=== PATIENT | female | born 1990 | race Caucasian/White ===

== ENCOUNTER → 2017-09-23 12:09 | Outpatient (CLI) | payer OTHER, SELFPAY ==
[2017-09-23 12:48] LABS: Absolute Lymphocyte Count 2.42 X10^3/ul (0.83-4.51); Absolute Neutrophil Count 5.8 X10^3/uL (2.0-7.7); Basophil# 0.01 X10^3/uL; Basophil% 0.1 % (0-1); Eosinophil# 0.03 X10^3/uL; Eosinophils% 0.3 % (0-5); Hematocrit 37.9 % (37-47); Hemoglobin 12.9 g/dl (12.0-15.0); Lymphocyte # 2.42 X10^3/ul (4.0); Lymphocyte % 27.7 % (19-41); Mean Corpuscular Hgb 29.9 pg (27.0-32.0); Mean Corpuscular Volume 87.9 fL (81-99); Mean Platelet Vol. 9.4 fl (6.2-12.0); Monocyte# 0.42 X10^3/uL; Monocyte% 4.8 % (0-10); Neutrophil # 5.82 X10^3/uL (2.7-7.7); Neutrophil % 66.8 % (47-70); Platelet Count 189 K/mm3 (150-450); RBC Distribution Width CV 12.4 % (11.6-14.6); RBC Distribution Width SD 39.8 fl (35.1-43.9); Red Blood Count 4.31 M/mm3 (4.2-5.4); White Blood Count 8.7 K/mm3 (4.4-11.0)
[2017-09-23 12:51] LABS: POSITIVE COUNT NO; POSITIVE DIFFERENTIAL NO; POSITIVE MORPHOLOGY NO
[2017-09-23 13:14] LABS: Rubella IgG 240.4 IU/mL
[2017-09-23 13:20] LABS: hCG Titer Quant., Serum 62589 mIU/mL (<9 non-preg)
[2017-09-24 09:29] LABS: HEPATITIS B SURFACE AG Negative (Negative)
[2017-09-27 03:10] LABS: Rapid Plasmin Reagin (RPR) NONREACTIVE (NONREACTIVE)
== END ==
PROVIDERS: Family Provider Family Medicine; PCP Family Medicine; Visit Provider Obstetrics & Gynecology
DX: O09.00 Supervision of pregnancy with history of infertility, unspecified trimester (principal); O20.0 Threatened abortion
CPT/HCPCS: 36415; 84702; 85025; 86592; 86762; 86850; 86900; 87340

== ENCOUNTER → 2017-10-22 14:09 | Outpatient (CLI) | payer OTHER, SELFPAY ==
--- NOTE | 2017-10-22 14:10 | US_ITS ---
STUDY: SECOND AND THIRD TRIMESTER OBSTETRICAL ULTRASOUND REASON FOR EXAM: Female, 27 years old. Evaluate anatomy. LMP: 06/08/2017. TECHNIQUE: Transabdominal and Transvaginal PRIOR ULTRASOUND: None. FINDINGS: There is a single intrauterine fetus. The fetus is in a breech presentation. There is demonstrated cardiac activity with a heart rate of 152 bpm. There is a normal amniotic fluid volume. The largest amniotic fluid pocket measures 4.2 cm. The amniotic fluid index (ORALIA) was not demonstrated. The placenta is anterior in location and is not low lying. There are Grade 0 placental changes. The cervix measures 4.3 cm in length. The adnexal regions are not visualized. BIOMETRY: BPD: 4.47 cm: 19 weeks, 4 days HC: 16.27 cm: 19 weeks, 1 days AC: 14.59 cm: 20 weeks, 0 days FL: 3.06 cm: 19 weeks, 4 days CI: 79 FL/BPD: 68 FL/AC: 21 HC/AC: 1.12 age by current US: 19 weeks, 4 days. TIFFANY by current US: 03/14/2018. Estimated weight: 304 grams, +/- 44 grams, 58 %. Age by LMP: 19 weeks, 3 days. TIFFANY by LMP: 03/15/2018. ANATOMY: Gender: Male Cranium: Normal lateral ventricles. Normal choroid plexus. Normal cerebellum. Normal cisterna magna. Normal face, nose and lips. Chest: Normal 4-chamber heart. Abdomen/Pelvis: Normal diaphragm. Normal stomach. Normal abdominal wall. Normal cord insertion. Normal 3 vessel cord. Normal kidneys. Normal bladder. Spine: Normal cervical spine. Normal thoracic spine. Normal lumbar spine. Normal sacrum. Extremities: Normal bilateral upper extremities. Normal bilateral lower extremities. US/OB Anatomy Scan IMPRESSION: Single viable intrauterine gestation of 19 weeks, 4 days with estimated date of delivery of 03/14/2018. No visualized abnormalities. Electronically Signed: Wayne Fenton MD at 5:06 EDT , Service support ,
== END ==
PROVIDERS: Family Provider Family Medicine; PCP Family Medicine; Visit Provider Obstetrics & Gynecology
DX: O09.00 Supervision of pregnancy with history of infertility, unspecified trimester (principal); O32.1XX0 Maternal care for breech presentation, not applicable or unspecified; Z3A.19 19 weeks gestation of pregnancy
CPT/HCPCS: 76805

== ENCOUNTER → 2017-12-24 08:54 | Outpatient (CLI) | payer OTHER, SELFPAY ==
[2017-12-24 09:22] LABS: Absolute Lymphocyte Count 1.86 X10^3/ul (0.83-4.51); Absolute Neutrophil Count 7.1 X10^3/uL (2.0-7.7); Basophil# 0.02 X10^3/uL; Basophil% 0.2 % (0-1); Eosinophil# 0.08 X10^3/uL; Eosinophils% 0.8 % (0-5); Hemoglobin 11.9 g/dl (12.0-15.0); Lymphocyte # 1.86 X10^3/ul (4.0); Lymphocyte % 18.9 % (19-41); Mean Corpuscular Hgb 30.6 pg (27.0-32.0); Mean Platelet Vol. 8.9 fl (6.2-12.0); Monocyte# 0.65 X10^3/uL; Monocyte% 6.6 % (0-10); Neutrophil # 7.08 X10^3/uL (2.7-7.7); Neutrophil % 71.8 % (47-70); POSITIVE COUNT NO; POSITIVE DIFFERENTIAL NO; POSITIVE MORPHOLOGY NO; Platelet Count 149 K/mm3 (150-450); RBC Distribution Width CV 12.5 % (11.6-14.6); RBC Distribution Width SD 40.4 fl (35.1-43.9); Red Blood Count 3.89 M/mm3 (4.2-5.4); White Blood Count 9.9 K/mm3 (4.4-11.0)
[2017-12-24 09:48] LABS: Glucose Challenge Gest 1H 50g 95 mg/dL (70-140)
[2017-12-25 09:46] LABS: HIV - WCH Non-Reactive (Nonreactive)
== END ==
PROVIDERS: Family Provider Family Medicine; PCP Family Medicine; Visit Provider Obstetrics & Gynecology
DX: O09.00 Supervision of pregnancy with history of infertility, unspecified trimester (principal); Z3A.00 Weeks of gestation of pregnancy not specified
CPT/HCPCS: 36415; 82950; 85025; 86703

== ENCOUNTER → 2018-01-23 14:59 | Outpatient (CLI) | payer OTHER, SELFPAY | PROVIDERS: Visit Provider Nurse Practitioner Women's Health | DX: N89.8 Other specified noninflammatory disorders of vagina (principal) | CPT/HCPCS: 84112 ==

== ENCOUNTER → 2018-02-21 13:24 | Outpatient (CLI) | payer OTHER, SELFPAY ==
[2018-02-21 19:18] LABS: Group B Strep DNA By PCR Negative (Negative); Internal Control PASS; Probe Check PASS; Specimen Processing Control PASS
== END ==
PROVIDERS: Family Provider Family Medicine; PCP Family Medicine; Visit Provider Obstetrics & Gynecology
DX: O09.00 Supervision of pregnancy with history of infertility, unspecified trimester (principal); Z3A.00 Weeks of gestation of pregnancy not specified
CPT/HCPCS: 76816; 87081; 87653

== ENCOUNTER 2018-03-19 12:15 | Inpatient (IN) | payer OTHER, SELFPAY ==
[2018-03-19 13:41] VITALS: BMI 34.9
[2018-03-19 14:04] LABS: Hematocrit 40.1 % (37-47); Hemoglobin 13.5 g/dl (12.0-15.0); Mean Corp Hgb Conc 33.7 g/gl (32-36); Mean Corpuscular Hgb 30.1 pg (27.0-32.0); Mean Corpuscular Volume 89.5 fL (81-99); Mean Platelet Vol. 9.4 fl (6.2-12.0); Platelet Count 159 K/mm3 (150-450); RBC Distribution Width CV 13.4 % (11.6-14.6); RBC Distribution Width SD 43.5 fl (35.1-43.9); Red Blood Count 4.48 M/mm3 (4.2-5.4); White Blood Count 10.8 K/mm3 (4.4-11.0)
[2018-03-19 14:05] LABS: Scan Indicated on CBC? Y/N NO
[2018-03-19] MEDS: miSOPROStol 25 MCG TABLET PO ×3 (14:14→22:14)
[2018-03-19] MEDS: Lactated Ringers 1,000 ML 50 ML IV (14:15)
[2018-03-19] MEDS: 0.9% Saline Lock 10 ML Syringe IV (19:18)
--- NOTE | 2018-03-19 21:13 | PCM.HP.OB ---
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 she was seen in the office today and had an padmini of 2.3 cm. she denies any LOF admits good FM and denies any regular ctx. Surgical History: Surgical History (Last Reviewed 03/19/18 @ 11:28 by Yolanda Cox) H/O eye surgery Z98.890 Allergies amoxicillin Allergy (Verified 03/19/18 11:29) Hives naproxen [From Aleve] Allergy (Verified 03/19/18 11:29) Hives sulfamethoxazole [From Bactrim] Allergy (Verified 03/19/18 11:29) Hives trimethoprim [From Bactrim] Allergy (Verified 03/19/18 11:29) Hives Home Medications: Home Medications vitamin #56-iron 35 mg and 5 mg-folic acid 1 mg-dha capsule 1 cap PO QDAY 07/26/17 Acyclovir 400 mg PO BID 03/19/18 Ranitidine HCl [Acid Control] 150 mg PO BID 03/19/18 Smoking Status: Never smoker Alcohol: None Number of Fetus(es): 1 Heart Tracin-140 moderate variability reactive no decels cat I tracing TOCO Analysis: irregular History Past Pregnancies: Past Pregnancies Delivery Date Name GA/Weeks Outcome Route Weight Gender Labor Length Anesthesia Delivery Location Provider FOB Labs: Mom's Labs & Results 03/19/18 03/19/18 13:50 13:50 WBC 10.8 RBC 4.48 Hgb 13.5 Hct 40.1 MCV 89.5 MCH 30.1 MCHC 33.7 RDW 13.4 RDW Differential 43.5 Plt Count 159 MPV 9.4 Blood Type O POSITIVE Antibody Screen NEGATIVE Course Did the patient receive Yes care? Labs RPR/VDRL/Syphilis Nonreactive Rubella status Immune HbSAg Negative Date Done: 12/24/17 Chlamydia Negative Gonorrhea Negative HIV/AIDS Non-Reactive Group B Strep: Negative Current Obstetrical History Gestational Diabetes No Incompetent Cervix No Infertility No IUGR No Macrosomia Yes Hypertension/Pre-eclampsia No Placenta Previa/Abruption No PTL/PROM No Uterine anomaly No Oligohydramnios Yes Polyhydramnios No Multiple gestation No Past Medical History Asthma No Diabetes No Hypertension No Heart disease No Mitral valve prolapse No Neurologic/Seizure disorder/ No Migraines Kidney disease No Liver disease No Varicosities No Clotting disorders/Hx of DVT No Thyroid Dysfunction No Other medical diseases No Psychiatric disorders No Major trauma No Abnormal PAP smear No Sleep apnea No Mammogram in the last 2 years No Social History Marital Status: Alleged father Finesse Hx Smoking No Smoking Status Never smoker Expected Delivery Method: Spontaneous Vaginal Review of Systems Constitutional: Denies: Fever, Malaise Eyes: Denies: Blurred vision, Vision Change HEENT: Denies: Head Aches, Visual Changes Cardiovascular: Denies: Chest Pain, Palpitations Respiratory: Denies: Cough, Shortness of Breath, Wheezing Gastrointestinal: Denies: Abdominal Pain, Diarrhea, Nausea, Vomiting Genitourinary: Denies: Dysuria, Hematuria Musculoskeletal: Denies: Joint Pain, Muscle pain Skin: Denies: Lesions, Rash Neurological: Denies: Blurred vision, Focal weakness, Headaches Psychiatric: Denies: Anxiety, Depression Endocrine: Denies: Heat/ Cold Intolerance Hematologic/ Lymphatic: Denies: Easy Bruising, Easy Bleeding Physical Exam General: Alert, Cooperative, No apparent distress HEENT: Atraumatic, Normocephalic. Negative for: Thyromegaly, Lymphadenopathy Cardiovascular: Regular rate Lungs: Normal air movement Abdomen: Soft, Non Tender, Gravid Neurological: Deep Tendon Reflexes 2+/4 and Symmetrical, Neuro grossly intact. Negative for: Clonus JUNIOR LEGAL SECRETARY: Normal external genitalia. Negative for: Vulvar lesions Estimated gestational size: Large for gestational age - approx 8 -8 1/2 lbs Presentation: Cephalic Cervix Dilation (cm): 1 Station: -3 Effacement (%): 10 Assessment/Plan All Active Problems (Last Reviewed 03/19/18 @ 11:28 by Yolanda Cox) Oligohydramnios (Acute) Segmental and somatic dysfunction of sacral region (Acute) Segmental and somatic dysfunction of cervical region (Acute) Segmental and somatic dysfunction of lumbar region (Acute) (Acute) Genital herpes affecting (Acute) Encounter for supervision of with history of infertility (Acute) This is a 27 year-old, at 40 weeks gestational age presents IOL oligo Patient presents IOL, plan cytotec IOL then proceed with management for , pitocin/AROM PRN . Pain management: hydrotherapy, prefers minimal intervention. GBS neg. Management of any complications: oligo- recommend IOL I have reviewed the [facility] and made any clinically relevant updates.
--- NOTE | 2018-03-19 21:17 | HP.PCM_ITS ---
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 she was seen in the office today and had an padmini of 2.3 cm. she denies any LOF admits good FM and denies any regular ctx. Surgical History: Surgical History (Last Reviewed 03/19/18 @ 11:28 by Yolanda Cox) H/O eye surgery Z98.890 Allergies amoxicillin Allergy (Verified 03/19/18 11:29) Hives naproxen [From Aleve] Allergy (Verified 03/19/18 11:29) Hives sulfamethoxazole [From Bactrim] Allergy (Verified 03/19/18 11:29) Hives trimethoprim [From Bactrim] Allergy (Verified 03/19/18 11:29) Hives Home Medications: Home Medications vitamin #56-iron 35 mg and 5 mg-folic acid 1 mg-dha capsule 1 cap PO QDAY 07/26/17 Acyclovir 400 mg PO BID 03/19/18 Ranitidine HCl [Acid Control] 150 mg PO BID 03/19/18 Smoking Status: Never smoker Alcohol: None Number of Fetus(es): 1 Heart Tracin-140 moderate variability reactive no decels cat I tracing TOCO Analysis: irregular History Past Pregnancies: Past Pregnancies Delivery Date Name GA/Weeks Outcome Route Weight Gender Labor Length Anesthesia Delivery Location Provider FOB Labs: Mom's Labs & Results 03/19/18 03/19/18 13:50 13:50 WBC 10.8 RBC 4.48 Hgb 13.5 Hct 40.1 MCV 89.5 MCH 30.1 MCHC 33.7 RDW 13.4 RDW Differential 43.5 Plt Count 159 MPV 9.4 Blood Type O POSITIVE Antibody Screen NEGATIVE Course Did the patient receive Yes care? Labs RPR/VDRL/Syphilis Nonreactive Rubella status Immune HbSAg Negative Date Done: 12/24/17 Chlamydia Negative Gonorrhea Negative HIV/AIDS Non-Reactive Group B Strep: Negative Current Obstetrical History Gestational Diabetes No Incompetent Cervix No Infertility No IUGR No Macrosomia Yes Hypertension/Pre-eclampsia No Placenta Previa/Abruption No PTL/PROM No Uterine anomaly No Oligohydramnios Yes Polyhydramnios No Multiple gestation No Past Medical History Asthma No Diabetes No Hypertension No Heart disease No Mitral valve prolapse No Neurologic/Seizure disorder/ No Migraines Kidney disease No Liver disease No Varicosities No Clotting disorders/Hx of DVT No Thyroid Dysfunction No Other medical diseases No Psychiatric disorders No Major trauma No Abnormal PAP smear No Sleep apnea No Mammogram in the last 2 years No Social History Marital Status: Alleged father Finesse Hx Smoking No Smoking Status Never smoker Expected Delivery Method: Spontaneous Vaginal Review of Systems Constitutional: Denies: Fever, Malaise Eyes: Denies: Blurred vision, Vision Change HEENT: Denies: Head Aches, Visual Changes Cardiovascular: Denies: Chest Pain, Palpitations Respiratory: Denies: Cough, Shortness of Breath, Wheezing Gastrointestinal: Denies: Abdominal Pain, Diarrhea, Nausea, Vomiting Genitourinary: Denies: Dysuria, Hematuria Musculoskeletal: Denies: Joint Pain, Muscle pain Skin: Denies: Lesions, Rash Neurological: Denies: Blurred vision, Focal weakness, Headaches Psychiatric: Denies: Anxiety, Depression Endocrine: Denies: Heat/ Cold Intolerance Hematologic/ Lymphatic: Denies: Easy Bruising, Easy Bleeding Physical Exam General: Alert, Cooperative, No apparent distress HEENT: Atraumatic, Normocephalic. Negative for: Thyromegaly, Lymphadenopathy Cardiovascular: Regular rate Lungs: Normal air movement Abdomen: Soft, Non Tender, Gravid Neurological: Deep Tendon Reflexes 2+/4 and Symmetrical, Neuro grossly intact. Negative for: Clonus DRAFTING LAYOUT MAN: Normal external genitalia. Negative for: Vulvar lesions Estimated gestational size: Large for gestational age - approx 8 -8 1/2 lbs Presentation: Cephalic Cervix Dilation (cm): 1 Station: -3 Effacement (%): 10 Assessment/Plan All Active Problems (Last Reviewed 03/19/18 @ 11:28 by Yolanda Cox) Oligohydramnios (Acute) Segmental and somatic dysfunction of sacral region (Acute) Segmental and somatic dysfunction of cervical region (Acute) Segmental and somatic dysfunction of lumbar region (Acute) (Acute) Genital herpes affecting (Acute) Encounter for supervision of with history of infertility (Acute) This is a 27 year-old, at 40 weeks gestational age presents IOL oligo Patient presents IOL, plan cytotec IOL then proceed with management for , pitocin/AROM PRN . Pain management: hydrotherapy, prefers minimal intervention. GBS neg. Management of any complications: oligo- recommend IOL I have reviewed the [facility] and made any clinically relevant updates.
[2018-03-20] MEDS: miSOPROStol 25 MCG TABLET PO ×3 (02:09→10:23)
[2018-03-20] MEDS: 0.9% Saline Lock 10 ML Syringe IV (08:06)
[2018-03-20] MEDS: 0.9% Normal Saline 100 ML IV.SOLN. INTRA-UTER (15:50)
[2018-03-20] MEDS: Lactated Ringers 1,000 ML 50 ML IV (16:10)
[2018-03-20] MEDS: Oxytocin 30 units/NS 500 ml 30 UNITS/500 ML IV.SOLN IV (16:10)
--- NOTE | 2018-03-20 20:48 | PCM.PN.BLA ---
Progress Note fht 130s min- moderate variability reactive no decels. toco q 3 min, s/p 24 hours of cytotec and now on FB and pitocin. continue pit per protocol and supportive management
[2018-03-21] MEDS: Nalbuphine 10 MG/ML Ampul IV ×2 (00:46→03:15)
[2018-03-21] MEDS: Ondansetron 4 MG/2 ML Vial IV (00:46)
[2018-03-21] MEDS: Lactated Ringers 1,000 ML 50 ML IV ×3 (01:52→12:02)
[2018-03-21] MEDS: fentaNYL-bupivacaine (epidural) 100 ML BAG EPIDURAL ×3 (06:30→16:10)
[2018-03-21] MEDS: Oxytocin 30 units/NS 500 ml 30 UNITS/500 ML IV.SOLN 334 UNITS IV (20:38)
[2018-03-21] MEDS: Oxytocin 30 units/NS 500 ml 30 UNITS/500 ML IV.SOLN 167 UNITS IV (21:08)
[2018-03-21] MEDS: 0.9% Saline Lock 10 ML Syringe IV (21:45)
[2018-03-21 22:55] VITALS: BP 119/71; PULSE 122; RESP 18; TEMP 36.7
[2018-03-21] MEDS: Ibuprofen 600 MG Tablet PO (23:25)
--- NOTE | 2018-03-21 23:50 | NURSING ---
At 2300 patient up to bathroom with assistance from myself and CHart RN. Pt walked well to bathroom and able to void 100cc, then became very dizzy. This RN held smelling salts for pt, pt's mother in bathroom supporting pt and pt passed out on toilet. Staff assist button employed and other nurses to room where pt was safely assisted to wheelchair after back awake. Pt then transferred back into bed.
[2018-03-22 03:35] VITALS: BP 118/58; PULSE 113; RESP 18; TEMP 36.3
[2018-03-22] MEDS: Ibuprofen 600 MG Tablet PO ×3 (05:36→17:31)
[2018-03-22 08:45] VITALS: BP 113/79; PULSE 98; RESP 16; TEMP 36.2; O2SAT 99
[2018-03-22] MEDS: Acetaminophen 500 MG Tablet 1000 MG PO (09:04)
[2018-03-22] MEDS: Prenatal Vits Tablet 1 TABLET PO (11:46)
[2018-03-22 12:25] VITALS: BP 110/67; PULSE 110; RESP 16; TEMP 36.1; O2SAT 98
[2018-03-22 17:00] VITALS: BP 115/63; PULSE 98; RESP 16; TEMP 36.7; O2SAT 96
--- NOTE | 2018-03-22 20:47 | PCM.PN.OB ---
Patient Problems: Active and Suspected Problems (Last Reviewed 03/19/18 @ 11:28 by Yolanda Cox) Oligohydramnios (Acute) Subjective: doing well n ocomplaints - Physical Exam General: Alert, Oriented x3 Vital Signs Temp Pulse Resp BP Pulse Ox 98.0 F 98 16 115/63 96 03/22/18 17:00 03/22/18 17:00 03/22/18 17:00 03/22/18 17:00 03/22/18 17:00 Oxygen Delivery Method Room Air Weight: 9 lb 6.69 oz Body Mass Index (BMI) 34.9 Intake and Output for Last 24 Hours 03/20/18 03/21/18 03/22/18 23:59 23:59 23:59 Intake Total 2440 / 2440 3015 / 3015 Output Total 3750 / 3750 1400 / 1400 800 / 800 Balance -1310 / -1310 1615 / 1615 -800 / -800 Medical Necessity - Tobacco Use Smoking Status: Never smoker Assessment/Plan All Active Problems (Last Reviewed 03/19/18 @ 11:28 by Yolanda Cox) Oligohydramnios (Acute) Segmental and somatic dysfunction of sacral region (Acute) Segmental and somatic dysfunction of cervical region (Acute) Segmental and somatic dysfunction of lumbar region (Acute) (Acute) Genital herpes affecting (Acute) Encounter for supervision of with history of infertility (Acute) s/p routine care
[2018-03-22 21:00] VITALS: BP 126/70; PULSE 103; RESP 16; TEMP 36.7
[2018-03-23] MEDS: Ibuprofen 600 MG Tablet PO ×2 (01:52→14:28)
[2018-03-23 02:00] VITALS: BP 106/65; PULSE 83; RESP 16; TEMP 36.2
--- NOTE | 2018-03-23 08:46 | PCM.PN.OB ---
Patient Problems: Active and Suspected Problems (Last Reviewed 03/19/18 @ 11:28 by Yolanda Cox) Oligohydramnios (Acute) Subjective: doing well no complaints - Physical Exam Vital Signs Temp Pulse Resp BP Pulse Ox 97.1 F L 83 16 106/65 96 03/23/18 02:00 03/23/18 02:00 03/23/18 02:00 03/23/18 02:00 03/22/18 17:00 Oxygen Delivery Method Room Air Weight: 9 lb 6.69 oz Body Mass Index (BMI) 34.9 Intake and Output for Last 24 Hours 03/21/18 03/22/18 03/23/18 23:59 23:59 23:59 Intake Total 3015 / 3015 Output Total 1400 / 1400 800 / 800 Balance 1615 / 1615 -800 / -800 Medical Necessity - Tobacco Use Smoking Status: Never smoker Assessment/Plan All Active Problems (Last Reviewed 03/19/18 @ 11:28 by Yolanda Cox) Oligohydramnios (Acute) Segmental and somatic dysfunction of sacral region (Acute) Segmental and somatic dysfunction of cervical region (Acute) Segmental and somatic dysfunction of lumbar region (Acute) (Acute) Genital herpes affecting (Acute) Encounter for supervision of with history of infertility (Acute) s/p routine care dc home
[2018-03-23 08:49] VITALS: BP 123/73; PULSE 100; RESP 16; TEMP 36.3; O2SAT 96
--- NOTE | 2018-03-23 08:50 | DCINST_ITS ---
Discharge Diet: No Restrictions Discharge Activity: Return to Normal Activity, May not drive while taking narcotic pain medications., May Shower May resume sexual activity in: 4-6 weeks Call your doctor if your incision/area has: Continuous Slow Oozing, Sudden Increased Bleeding, Increased Pain/ Swelling, Increased Redness, Foul Smelling Discharge Additional Instructions: If you experience any of the following, contact your healthcare provider. * Bleeding that soaks a pad every hour for 2 hours * Fever 100.4 or higher * Unrelieved incision or abdominal pain * Swelling, redness, discharge or bleeding from your incision or episiotomy site * Your incision begins to separate * Problems urinating (including inability to urinate or burning while urinating) . * Visual changes * Severe headache * Flu-like symptoms * Pain or redness in one of both of your breasts * Pain, warmth, tenderness or swelling in your legs, especially the calf area * Frequent nausea and vomiting * Symptoms of depression or anxiety If you experience any of the following, call 911 or go to the nearest Emergency Room. * Chest pain * Problems breathing * Seizure activity * Partial or complete paralysis of a body part, slurred speech, weakness or drooping of the face, or a sudden inability to walk or hold your balance Allergies/Adverse Reactions: Allergies amoxicillin Allergy (Verified 03/19/18 11:29) Hives naproxen [From Aleve] Allergy (Verified 03/19/18 11:29) Hives sulfamethoxazole [From Bactrim] Allergy (Verified 03/19/18 11:29) Hives trimethoprim [From Bactrim] Allergy (Verified 03/19/18 11:29) Hives Medications to take at Discharge vitamin #56-iron 35 mg and 5 mg-folic acid 1 mg-dha capsule 1 cap PO QDAY 07/26/17 Acyclovir 400 mg PO BID 03/19/18 Ranitidine HCl [Acid Control] 150 mg PO BID 03/19/18 Please Follow Up With: Dulce Hyatt MD - [phone] When: Call to make an appointment with your doctor in 6 weeks. If you had elevated Blood pressure or 4th degree laceration you will need to be seen in 2 weeks. Primary Care Physician: Ariadne Rivers MD [Primary Care Provider] - Test Results: Test results from this visit will be discussed in further detail at your follow- up appointment, if applicable.
[2018-03-23 09:05] VITALS: BP 129/69; PULSE 99; RESP 16; TEMP 36.2; O2SAT 98
[2018-03-23] MEDS: Acetaminophen 500 MG Tablet 1000 MG PO (09:15)
[2018-03-23 14:00] VITALS: BP 123/68; PULSE 103; RESP 16; TEMP 36.5; O2SAT 98
[2018-03-23 14:26] VITALS: BP 123/68; PULSE 103; RESP 16; TEMP 36.5; O2SAT 98
--- NOTE | 2018-03-27 20:16 | PCM.OB.VAG ---
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 Method of Induction: Pitocin, Gustafson Bulb, Cytotec Medical Reason for Induction: - - oligohydramnios Amniotic Membrane Rupture Type: Artificial Amniotic Fluid Description: Clear Final TIFFANY: 03/15/18 Gestational age: 40 Weeks and 4 Days Date of Procedure: 03/21/18 Pre-Operative Diagnosis: Induction of labor oligo Post-Operative Diagnosis: Same Surgery/ Procedure Performed: Spontaneous Vaginal Delivery Type of Anesthesia: Epidural Description of Procedure: Patient was induced with Cytotec followed by Gustafson bulb with Pitocin. Patient has prolonged first stage of labor but finally was complete and began pushing. Patient began pushing and delivered the head in the REGAN presentation. The head was delivered atraumatically . The anterior and posterior shoulders delivered without complication followed by the rest of the infant and the infant was placed on the maternal abdomen. Delayed cord clamping was employed for approximately 60 seconds. Cord was clamped and cut and gentle traction was applied to the cord and the placenta delivered spontaneously immediately following it was noted to be intact with three-vessel cord. The perineum and vagina were inspected and noted to have a second-degree perineal laceration was repaired in the usual fashion with 3-0 Vicryl repeat. Patient and tolerated delivery well. Presentation: REGAN Placental Delivery Description: Spontaneous Placenta Disposition: [facility] Cord Vessel Description: 3 Vessels Cord Entanglement: None Infant A gender: Male Episiotomy Description: None Laceration: Perineal Extension/lac, 2nd degree Medications given after delivery: IV Pitocin Complications: None
== END 2018-03-23 14:40 | disposition home or self-care (01) | DRG 774 ==
PROVIDERS: Admitting Provider Obstetrics & Gynecology; Family Provider Family Medicine; PCP Family Medicine; Visit Provider Obstetrics & Gynecology
DX: O41.03X0 Oligohydramnios, third trimester, not applicable or unspecified (principal); O98.32 Other infections with a predominantly sexual mode of transmission complicating childbirth; O70.1 Second degree perineal laceration during delivery; Z37.0 Single live birth; O36.63X0 Maternal care for excessive fetal growth, third trimester, not applicable or unspecified; Z3A.40 40 weeks gestation of pregnancy; A60.00 Herpesviral infection of urogenital system, unspecified; M99.01 Segmental and somatic dysfunction of cervical region; M99.02 Segmental and somatic dysfunction of thoracic region; M99.03 Segmental and somatic dysfunction of lumbar region
CPT/HCPCS: 59025; 59050; 85027; 86850; 86900; 99218; J7050; J7120; A4216; G0378; J2405

== ENCOUNTER 2018-03-26 12:49 | Outpatient (CLI) | payer OTHER, SELFPAY | END 2018-03-26 14:00 | disposition home or self-care (01) | LOC: WPOUT 12:51 → WP 12:52 | PROVIDERS: Family Provider Family Medicine; PCP Family Medicine; Visit Provider Obstetrics & Gynecology | DX: Z39.1 Encounter for care and examination of lactating mother (principal) | CPT/HCPCS: 96152 ==

== ENCOUNTER → 2018-05-05 10:00 | Outpatient (CLI) | payer OTHER, SELFPAY ==
[2018-05-09 11:01] LABS: HPV Reflexed? NOT INDICATED
== END ==
PROVIDERS: Family Provider Family Medicine; PCP Family Medicine; Referring Provider Obstetrics & Gynecology; Visit Provider Obstetrics & Gynecology
DX: Z12.4 Encounter for screening for malignant neoplasm of cervix (principal)
CPT/HCPCS: 87624; 88175; G0145

== ENCOUNTER → 2018-10-20 16:16 | Outpatient (CLI) | payer OTHER, SELFPAY ==
[2018-10-20 15:21] VITALS: BMI 30.4
[2018-10-20 17:04] LABS: Absolute Lymphocyte Count 2.57 X10^3/ul (0.83-4.51); Basophil# 0.01 X10^3/uL; Basophil% 0.1 % (0-1); Eosinophil# 0.04 X10^3/uL; Eosinophils% 0.6 % (0-5); Hematocrit 40.2 % (37-47); Hemoglobin 13.5 g/dl (12.0-15.0); Lymphocyte # 2.57 X10^3/ul (4.0); Lymphocyte % 35.9 % (19-41); Mean Corp Hgb Conc 33.6 g/gl (32-36); Mean Corpuscular Hgb 29.2 pg (27.0-32.0); Mean Platelet Vol. 9.4 fl (6.2-12.0); Monocyte# 0.57 X10^3/uL; Neutrophil # 3.95 X10^3/uL (2.7-7.7); Neutrophil % 55.1 % (47-70); Platelet Count 203 K/mm3 (150-450); RBC Distribution Width CV 12.7 % (11.6-14.6); RBC Distribution Width SD 39.7 fl (35.1-43.9); Red Blood Count 4.62 M/mm3 (4.2-5.4); White Blood Count 7.2 K/mm3 (4.4-11.0)
[2018-10-20 17:06] LABS: POSITIVE COUNT NO; POSITIVE DIFFERENTIAL NO; POSITIVE MORPHOLOGY NO
[2018-10-20 19:13] LABS: HIV - WCH Non-Reactive (Nonreactive); Rubella IgG 226.3 IU/mL
[2018-10-22 11:31] LABS: HEPATITIS B SURFACE AG Negative (Negative)
[2018-10-24 01:43] LABS: Rapid Plasmin Reagin (RPR) NONREACTIVE (NONREACTIVE)
== END ==
PROVIDERS: Nurse Practitioner Women's Health; Family Provider Family Medicine; PCP Family Medicine; Referring Provider Obstetrics & Gynecology; Visit Provider Obstetrics & Gynecology
DX: Z34.91 Encounter for supervision of normal pregnancy, unspecified, first trimester (principal); Z3A.01 Less than 8 weeks gestation of pregnancy
CPT/HCPCS: 36415; 85025; 86592; 86703; 86762; 86850; 86900; 87340

== ENCOUNTER → 2018-10-21 10:24 | Outpatient (CLI) | payer OTHER, SELFPAY ==
[2018-10-20 15:21] VITALS: BMI 30.4
[2018-10-21 15:56] LABS: Chlamydia Trachomatis by PCR Negative (Negative); Neisserai gonorrhoeae by PCR Negative (Negative); Probe Check PASS; Sample Adequacy Control PASS; Specimen Processing Control PASS
== END ==
PROVIDERS: Family Provider Family Medicine; PCP Family Medicine; Referring Provider Nurse Practitioner Women's Health; Visit Provider Nurse Practitioner Women's Health
DX: Z3A.01 Less than 8 weeks gestation of pregnancy (principal)
CPT/HCPCS: 87086; 87088; 87491; 87591

== ENCOUNTER → 2018-11-10 08:23 | Outpatient (CLI) | payer OTHER, SELFPAY ==
[2018-10-20 15:21] VITALS: BMI 30.4
== END ==
PROVIDERS: Family Provider Family Medicine; PCP Family Medicine; Visit Provider Obstetrics & Gynecology
DX: Z34.81 Encounter for supervision of other normal pregnancy, first trimester (principal)
CPT/HCPCS: 36415

== ENCOUNTER 2018-12-09 21:08 | Emergency (ER) | payer OTHER, SELFPAY ==
[2018-11-18 13:55] VITALS: BMI 30.4
[2018-12-09 21:09] VITALS: BP 127/74; PULSE 95; RESP 18; TEMP 36.9; O2SAT 97; BMI 27.1
[2018-12-09 21:20] VITALS: BP 121/83; PULSE 104; RESP 15; O2SAT 98
--- NOTE | 2018-12-09 22:06 | ED.VIS.GEN ---
History of Present Illness Chief Complaint: General Illness Informant: Patient Onset: Today Narrative: G2, P1 16 weeks gestation presents from referred from urgent care. States woke up, there abnormally on her upper lip. Looks like blood, there is no trauma denies pain in this area. Last couple days noted blood in stools. Bowel movements are hard with constipation issues also on prenatals with iron. No lightheaded symptoms. No previous similar. No abdominal pain. No fevers. No history of blood disorders. Prior similar symptoms: No Past Medical History - Allergies and Home Meds Allergies/Adverse Reactions: Allergies amoxicillin Allergy (Verified 11/18/18 13:54) Hives naproxen [From Aleve] Allergy (Verified 11/18/18 13:54) Hives sulfamethoxazole [From Bactrim] Allergy (Verified 11/18/18 13:54) Hives trimethoprim [From Bactrim] Allergy (Verified 11/18/18 13:54) Hives Primary Care Physician: Ariadne Rivers MD [Primary Care Provider] - Smoking Status: Never smoker Review of Systems General: Denies: Chills, Fever, Sweats Eyes: Denies: Visual changes - bilaterally, Diplopia ENT: Denies: Rhinorrhea, Sore throat Cardiovascular: Denies: Chest pain, Palpitations Respiratory: Denies: Dyspnea, Cough, Dyspnea on exertion Gastrointestinal: Denies: Abdominal pain, Nausea, Vomiting, Diarrhea, Melena, Hematochezia Genitourinary: Denies: Dysuria, Hematuria, Frequency Musculoskeletal: Denies: Back pain, Extremity Pain Skin: Denies: Rash, Wounds Neurological: Denies: Headache, Weakness, Numbness Physical Exam Vital Signs/Narrative: Vital Signs Temp Pulse Resp BP Pulse Ox 12/09/18 21:20 104 H 15 121/83 H 98 12/09/18 21:09 98.5 F 95 18 127/74 H 97 Inital Vital Signs reviewed: Yes General: Well nourished, Well developed, No Acute Distress Head: Normocephalic, Atraumatic Eyes: Perrl, EOMI ENT: Moist mucous membranes, No rhinorrhea, - - Evaluation under upper lip, noted broken capillaries upper bilaterally, no hematoma. No ulcerations. Nontender to palpation. Neck: Supple, Nontender Cardiovascular: Regular rate, Regular rhythm, No murmurs Respiratory: No distress, CTA bilaterally, Chest nontender Abdomen: Soft, Nontender, Normal bowel sounds, - - Gravid abdomen. Back: Nontender, Normal Inspection Extremities: Nontender, No edema Skin: Normal color, No rash Neurological: Alert, Oriented x3, Cranial nerves II-XII grossly intact, Normal Strength, Normal Sensation Psychological: Normal affect, Normal Mood Diagnostic/Tx/Re-eval Abnormal Lab Results 12/09/18 22:21 WBC 8.8 RBC 4.22 Hgb 12.7 Hct 36.5 L MCV 86.5 MCH 30.1 MCHC 34.8 RDW 12.4 RDW Differential 39.1 Plt Count 166 MPV 10.4 Immature Gran % (Auto) 0.200 Neut % (Auto) 57.5 Lymph % (Auto) 35.1 Bledsoe % (Auto) 6.2 Eos % (Auto) 0.8 Baso % (Auto) 0.2 Absolute Neuts (auto) 5.1 Absolute Lymphs (auto) 3.10 Total Counted Not Reportable - Medical Decision Making Patient nontoxic, exam concerns for capillary leakage upper lips. She has no trauma. CBC is obtained platelets 166. Discussed monitoring symptoms. With her mild blood in stools with dry stool history, discussed patient likely fissures versus hemorrhoids. Hemoglobin is 12.7. She is not on anticoagulation medicines. She will be placed on Colace, she will monitor symptoms. Signs and symptoms discussed return. All questions were answered. ED Disposition - Plan for ED Patient: Disposition: Home or Assisted Living Diagnosis: Capillary disorder Instructions: Diagnosing Hemorrhoids Prescriptions: Docusate Sodium [Colace] 100 mg PO DAILY #30 capsule Referrals: Ariadne Rivers MD [Primary Care Provider] - 3-5 Days if not improving Additional Instructions: Platelets 166. Monitor symptoms. Symptoms should resolve. With blood in stools likely fissures versus hemorrhoids. Take Colace as prescribed.
[2018-12-09 22:15] VITALS: BP 120/88; PULSE 89; RESP 12; O2SAT 99
[2018-12-09 22:29] LABS: Absolute Neutrophil Count 5.1 X10^3/uL (2.0-7.7); Basophil# 0.02 X10^3/uL; Basophil% 0.2 % (0-1); Eosinophil# 0.07 X10^3/uL; Eosinophils% 0.8 % (0-5); Hematocrit 36.5 % (37-47); Hemoglobin 12.7 g/dl (12.0-15.0); Lymphocyte % 35.1 % (19-41); Mean Corp Hgb Conc 34.8 g/gl (32-36); Mean Corpuscular Hgb 30.1 pg (27.0-32.0); Mean Corpuscular Volume 86.5 fL (81-99); Mean Platelet Vol. 10.4 fl (6.2-12.0); Monocyte# 0.55 X10^3/uL; Monocyte% 6.2 % (0-10); Neutrophil # 5.06 X10^3/uL (2.7-7.7); Neutrophil % 57.5 % (47-70); Platelet Count 166 K/mm3 (150-450); RBC Distribution Width CV 12.4 % (11.6-14.6); RBC Distribution Width SD 39.1 fl (35.1-43.9); Red Blood Count 4.22 M/mm3 (4.2-5.4); White Blood Count 8.8 K/mm3 (4.4-11.0)
[2018-12-09 22:31] LABS: POSITIVE COUNT NO; POSITIVE DIFFERENTIAL NO; POSITIVE MORPHOLOGY NO
[2018-12-09 22:52] VITALS: PULSE 87; RESP 16; O2SAT 99
== END 2018-12-09 23:14 | disposition home or self-care (01) ==
PROVIDERS: Emergency Provider Emergency Medicine; Family Provider Family Medicine; PCP Family Medicine
DX: O26.892 Other specified pregnancy related conditions, second trimester (principal); I78.9 Disease of capillaries, unspecified; K59.00 Constipation, unspecified; K92.1 Melena; Z3A.16 16 weeks gestation of pregnancy
CPT/HCPCS: 85025; 99282

== ENCOUNTER → 2019-02-12 11:05 | Outpatient (CLI) | payer OTHER, SELFPAY ==
[2019-02-12 10:42] VITALS: BMI 29.1
[2019-02-12 11:26] LABS: ROM Internal Control Test YES-OK TO RESULT pt. (Internal QC)
[2019-02-12 11:27] LABS: ROM Patient Test Negative (Negative)
== END ==
PROVIDERS: Referring Provider Nurse Practitioner Women's Health; Visit Provider Nurse Practitioner Women's Health
DX: O23.40 Unspecified infection of urinary tract in pregnancy, unspecified trimester (principal); Z3A.00 Weeks of gestation of pregnancy not specified
CPT/HCPCS: 84112; 87086; 87088

== ENCOUNTER → 2019-03-20 09:59 | Outpatient (CLI) | payer OTHER, SELFPAY ==
[2019-03-20 09:26] VITALS: BMI 29.1
[2019-03-20 10:43] LABS: Absolute Neutrophil Count 6.3 X10^3/uL (2.0-7.7); Basophil# 0.04 X10^3/uL; Basophil% 0.4 % (0-1); Eosinophil# 0.07 X10^3/uL; Eosinophils% 0.7 % (0-5); Hemoglobin 12.8 g/dL (12.0-15.0); Lymphocyte % 25.4 % (19-41); Mean Corp Hgb Conc 33.7 g/dL (32-36); Mean Corpuscular Hgb 30.9 pg (27.0-32.0); Mean Corpuscular Volume 91.8 fL (81-99); Mean Platelet Vol. 9.5 fl (6.2-12.0); Monocyte% 5.3 % (0-10); NRBC Flagged by Analyzer 0 % (0-5); Neutrophil # 6.29 X10^3/uL (2.7-7.7); Neutrophil % 66.6 % (47-70); Platelet Count 155 K/mm3 (150-450); RBC Distribution Width CV 12.1 % (11.6-14.6); RBC Distribution Width SD 40.6 fl (35.1-43.9); Red Blood Count 4.14 M/mm3 (4.2-5.4); White Blood Count 9.5 K/mm3 (4.4-11.0)
[2019-03-20 11:14] LABS: Glucose Challenge Gest 1H 50g 93 mg/dL (70-140)
== END ==
PROVIDERS: Referring Provider Obstetrics & Gynecology; Visit Provider Obstetrics & Gynecology
DX: Z34.80 Encounter for supervision of other normal pregnancy, unspecified trimester (principal)
CPT/HCPCS: 36415; 82950; 85025

== ENCOUNTER → 2019-04-03 12:48 | Outpatient (CLI) | payer OTHER, SELFPAY ==
[2019-04-03 09:26] VITALS: BMI 29.1
[2019-04-03 14:13] LABS: T4 Free Direct 0.81 ng/dL (0.76-1.46); Thyroid Stim Hormone (TSH) 1.09 uIU/mL (0.358-3.74)
== END ==
PROVIDERS: Family Provider Family Medicine; PCP Family Medicine; Referring Provider Obstetrics & Gynecology; Visit Provider Obstetrics & Gynecology
DX: Z34.80 Encounter for supervision of other normal pregnancy, unspecified trimester (principal)
CPT/HCPCS: 36415; 84439; 84443

== ENCOUNTER → 2019-04-30 16:23 | Outpatient (CLI) | payer OTHER, SELFPAY ==
[2019-04-30 15:41] VITALS: BMI 30.9
[2019-04-30 16:49] LABS: ROM Internal Control Test YES-OK TO RESULT pt. (Internal QC); ROM Patient Test Negative (Negative)
== END ==
PROVIDERS: Family Provider Family Medicine; PCP Family Medicine; Visit Provider Obstetrics & Gynecology
DX: O26.899 Other specified pregnancy related conditions, unspecified trimester (principal); N89.8 Other specified noninflammatory disorders of vagina; Z3A.00 Weeks of gestation of pregnancy not specified
CPT/HCPCS: 84112

== ENCOUNTER → 2019-05-08 08:00 | Outpatient (CLI) | payer OTHER, SELFPAY ==
[2019-05-08 13:17] VITALS: BMI 30.9
[2019-05-08 14:46] LABS: ROM Internal Control Test YES-OK TO RESULT pt. (Internal QC); ROM Patient Test Negative (Negative)
== END ==
PROVIDERS: Family Provider Family Medicine; PCP Family Medicine; Referring Provider Obstetrics & Gynecology; Visit Provider Obstetrics & Gynecology
DX: A60.04 Herpesviral vulvovaginitis (principal); O44.20 Partial placenta previa NOS or without hemorrhage, unspecified trimester; O99.340 Other mental disorders complicating pregnancy, unspecified trimester; F41.9 Anxiety disorder, unspecified; Z3A.34 34 weeks gestation of pregnancy; O09.891 Supervision of other high risk pregnancies, first trimester
CPT/HCPCS: 84112

== ENCOUNTER → 2019-05-21 15:03 | Outpatient (CLI) | payer OTHER, SELFPAY ==
[2019-05-21 08:39] VITALS: BMI 30.9
== END ==
PROVIDERS: Family Provider Family Medicine; PCP Family Medicine; Visit Provider Nurse Practitioner Women's Health
DX: Z34.80 Encounter for supervision of other normal pregnancy, unspecified trimester (principal)
CPT/HCPCS: 87081

== ENCOUNTER 2019-06-11 13:25 | Inpatient (IN) | payer OTHER, SELFPAY ==
[2019-04-27 09:39] VITALS: BMI 29.1
[2019-06-09 12:16] VITALS: BMI 30.9
[2019-06-11 13:59] VITALS: BMI 34.0
[2019-06-11] MEDS: Lactated Ringers 1,000 ML 50 ML IV (14:25)
[2019-06-11 14:55] LABS: Absolute Neutrophil Count 6.7 X10^3/uL (2.0-7.7); Basophil# 0.04 X10^3/uL; Basophil% 0.4 % (0-1); Eosinophil# 0.04 X10^3/uL; Eosinophils% 0.4 % (0-5); Hematocrit 39.5 % (37-47); Hemoglobin 13.5 g/dL (12.0-15.0); Lymphocyte % 21.1 % (19-41); Mean Corp Hgb Conc 34.2 g/dL (32-36); Mean Corpuscular Hgb 30.3 pg (27.0-32.0); Mean Corpuscular Volume 88.8 fL (81-99); Mean Platelet Vol. 9.4 fl (6.2-12.0); Monocyte# 0.56 X10^3/uL; Monocyte% 5.9 % (0-10); NRBC Flagged by Analyzer 0 % (0-5); Neutrophil # 6.68 X10^3/uL (2.7-7.7); Neutrophil % 70.3 % (47-70); Platelet Count 155 K/mm3 (150-450); RBC Distribution Width CV 12.5 % (11.6-14.6); RBC Distribution Width SD 40.3 fl (35.1-43.9); Red Blood Count 4.45 M/mm3 (4.2-5.4); White Blood Count 9.5 K/mm3 (4.4-11.0)
[2019-06-11] MEDS: 0.9% Normal Saline 100 ML IV.SOLN. IY (15:07)
[2019-06-11] MEDS: Oxytocin 30 units/NS 500 ml 30 UNITS/500 ML IV.SOLN IV (15:24)
[2019-06-11] MEDS: Lactated Ringers 500 ML 999 ML IV ×2 (18:45→23:00)
[2019-06-11] MEDS: fentaNYL-bupivacaine (epidural) 100 ML BAG EPIDURAL ×2 (19:20→23:28)
[2019-06-11] MEDS: Ondansetron 4 MG/2 ML Vial IV (20:26)
[2019-06-11] MEDS: Lactated Ringers 1,000 ML 200 ML IV (22:29)
[2019-06-12] MEDS: Oxytocin 30 units/NS 500 ml 30 UNITS/500 ML IV.SOLN 334 UNITS IV (02:58)
--- NOTE | 2019-06-12 03:46 | PCM.HP.OB ---
- Problem List (1) Large for gestational age fetus Status: Acute (2) Genital HSV Status: Acute Qualifiers: Comment: plan valtrex at 36 weeks/started (3) Anxiety during Status: Acute Comment: celexa, in therapy (4) Supervision of other normal Status: Acute Comment: PRR TIFFANY 06/13/19 boy Tevin Anderson Spouse Finesse (5) Status: Acute Qualifiers: Comment: declined nipt carrier and ntd screening. anatomy US reviewed (6) Short interval between pregnancies affecting in first trimester, antepartum Status: Acute Comment: induced at 40 wk, low ORALIA-check at 37 wk visit History Date of Admission: 03/19/18 Final TIFFANY: 06/13/19 Gestational age: 39 Weeks and 6 Days History of this : This is a 29 year-old, , at 39 weeks gestational age presents for IOL secondary to LGA. she has had a complicated by anxiety, and originally her last menstrual period was showing TIFFANY of last Saturday but based on early ultrasound to date was moved to the seventh. Most recent growth ultrasound shows estimated weight to be larger and and due date to be closer to original LMP. Medical History: Medical History (Last Reviewed 06/09/19 @ 11:50 by Yolanda Cox) Anxiety and depression F41.9, F32.9 GERD (gastroesophageal reflux disease) K21.9 Genital herpes A60.00 Hemorrhoid K64.9 Surgical History: Surgical History (Last Reviewed 06/09/19 @ 11:50 by Yolanda Cox) H/O eye surgery Z98.890 Allergies amoxicillin Allergy (Verified 06/11/19 14:01) Hives naproxen [From Aleve] Allergy (Verified 06/11/19 14:01) Hives sulfamethoxazole [From Bactrim] Allergy (Verified 06/11/19 14:01) Hives trimethoprim [From Bactrim] Allergy (Verified 06/11/19 14:01) Hives Home Medications: Home Medications vitamin#30 30 mg iron-10 mg iron-folic acid 1 mg-omg3 capsule 1 cap PO DAILY cap 11/18/18 cholecalciferol (vitamin D3) 1,000 unit capsule 1,000 unit PO DAILY 04/08/19 docosahexanoic acid 300 mg capsule mg PO cap 04/08/19 Docusate Sodium [Colace] 100 mg PO DAILY 06/11/19 Valacyclovir HCl [Valacyclovir] 500 mg PO BID 06/11/19 Smoking Status: Never smoker Alcohol: None Number of Fetus(es): 1 NST - FHR Rate Baby A Baseline: 140 Variability:: Moderate Accelerations:: 15 x 15 Decelerations:: None NST Reactive:: Yes, Appropriate for gestational age FHR Category:: Category I Uterine Activity:: irregular History Past Pregnancies: Past Pregnancies\ Previous term vaginal delivery oligohydramnios weight 9 pounds prolonged labor 54 hours with 3 hours of pushing Labs: Mom's Labs & Results 05/08/19 06/11/19 06/11/19 13:30 14:25 14:25 WBC 9.5 RBC 4.45 Hgb 13.5 Hct 39.5 MCV 88.8 MCH 30.3 MCHC 34.2 RDW Std Deviation 40.3 RDW Coeff of Allison 12.5 Plt Count 155 MPV 9.4 Immature Gran % (Auto) 1.900 H Neut % (Auto) 70.3 H Lymph % (Auto) 21.1 [place] % (Auto) 5.9 Eos % (Auto) 0.4 Baso % (Auto) 0.4 Absolute Neuts (auto) 6.7 Absolute Lymphs (auto) 2.00 Nucleated RBC % 0 Vag Amniotic Fld Detect Cancelled Blood Type O POSITIVE Antibody Screen NEGATIVE 06/13/19 13:30 WBC RBC Hgb Hct MCV MCH MCHC RDW Std Deviation RDW Coeff of Allison Plt Count MPV Immature Gran % (Auto) Neut % (Auto) Lymph % (Auto) [place] % (Auto) Eos % (Auto) Baso % (Auto) Absolute Neuts (auto) Absolute Lymphs (auto) Nucleated RBC % Vag Amniotic Fld Detect Cancelled Blood Type Antibody Screen Course Did the patient receive Yes care? Labs Blood Type: O RH: POSITIVE RPR/VDRL/Syphilis Nonreactive Rubella status Immune HbSAg Negative Date Done: 10/20/18 Chlamydia Negative Gonorrhea Negative HIV/AIDS Non-Reactive Group B Strep: Negative Current Obstetrical History Gestational Diabetes No Incompetent Cervix No Infertility No IUGR No Macrosomia Yes Hypertension/Pre-eclampsia No Placenta Previa/Abruption No: previa in early - resolved by 28 weeks PTL/PROM No Uterine anomaly No Oligohydramnios No Polyhydramnios No Multiple gestation No Past Medical History Asthma Yes: exercise induced Diabetes No Hypertension No Heart disease No Mitral valve prolapse No Neurologic/Seizure disorder/ No Migraines Kidney disease No Liver disease No Varicosities No Clotting disorders/Hx of DVT No Thyroid Dysfunction No Other medical diseases No Psychiatric disorders No Major trauma No Abnormal PAP smear No Sleep apnea No Mammogram in the last 2 years No Social History Marital Status: Alleged father Finesse Hx Smoking No Smoking Status Never smoker Expected Infant Delivery Method: Spontaneous Vaginal Review of Systems Constitutional: Denies: Fever, Malaise Eyes: Denies: Blurred vision, Vision Change HEENT: Denies: Head Aches, Visual Changes Cardiovascular: Denies: Chest Pain, Palpitations Respiratory: Denies: Cough, Shortness of Breath, Wheezing Gastrointestinal: Denies: Abdominal Pain, Diarrhea, Nausea, Vomiting Genitourinary: Denies: Dysuria, Hematuria Musculoskeletal: Denies: Joint Pain, Muscle pain Skin: Denies: Lesions, Rash Neurological: Denies: Blurred vision, Focal weakness, Headaches Psychiatric: Denies: Anxiety, Depression Endocrine: Denies: Heat/ Cold Intolerance Hematologic/ Lymphatic: Denies: Easy Bruising, Easy Bleeding Physical Exam General: Alert, Cooperative, No apparent distress HEENT: Atraumatic, Normocephalic. Negative for: Thyromegaly, Lymphadenopathy Cardiovascular: Regular rate Lungs: Normal air movement Abdomen: Soft, Non Tender, Gravid Neurological: Deep Tendon Reflexes 2+/4 and Symmetrical, Neuro grossly intact. Negative for: Clonus BRICK PITCHER: Normal external genitalia. Negative for: Vulvar lesions Estimated gestational size: Appropriate for gestational size Presentation: Cephalic Cervix Dilation (cm): 1.5 Assessment/Plan All Active Problems (Last Reviewed 06/09/19 @ 11:50 by Yolanda Cox) Large for gestational age fetus (Acute) Genital HSV (Acute) Anxiety during (Acute) Supervision of other normal (Acute) (Acute) Short interval between pregnancies affecting in first trimester, antepartum (Acute) Encounter for supervision of with history of infertility (Resolved) Genital herpes affecting (Resolved) Marginal placenta previa (Resolved) Oligohydramnios (Resolved) (Resolved) Segmental and somatic dysfunction of cervical region (Resolved) Segmental and somatic dysfunction of lumbar region (Resolved) Segmental and somatic dysfunction of sacral region (Resolved) This is a 29 year-old, at 39 weeks gestational age presents IOL LGA. Patient presents IOL, plan management for , pitocin/AROM after pruitt bulb Pain management: Plans epidural. GBS negative. Management of any complications: large For gestational age I have reviewed the [facility] and made any clinically relevant updates.
--- NOTE | 2019-06-12 03:49 | PCM.OPRPT ---
Problem List (1) Large for gestational age fetus Status: Acute (2) Genital HSV Status: Acute Qualifiers: Comment: plan valtrex at 36 weeks/started (3) Anxiety during Status: Acute Comment: celexa, in therapy (4) Supervision of other normal Status: Acute Comment: PRR TIFFANY 06/13/19 dimitrios Anderson Spouse Finesse (5) Status: Acute Qualifiers: Comment: declined nipt carrier and ntd screening. anatomy US reviewed (6) Short interval between pregnancies affecting in first trimester, antepartum Status: Acute Comment: induced at 40 wk, low ORALIA-check at 37 wk visit Vaginal Delivery Maternal Presentation: Medically Indicated Induction iol lga 39w5d Method of Induction: Pitocin, Gustafson Bulb Amniotic Membrane Rupture Type: Artificial Amniotic Fluid Description: Clear Final TIFFANY: 06/13/19 Gestational age: 39 Weeks and 6 Days Date of Procedure: 06/12/19 Pre-Operative Diagnosis: iol lga Post-Operative Diagnosis: same Surgery/ Procedure Performed: Spontaneous Vaginal Delivery Type of Anesthesia: Epidural Description of Procedure: Patient began pushing and delivered the head in the [REGAN] presentation. The head was delivered atraumatically . The anterior and posterior shoulders delivered without complication followed by the rest of the infant and the was placed on the maternal abdomen. Delayed cord clamping was employed for approximately 60 seconds. Cord was clamped and cut and gentle traction was applied to the cord and the placenta delivered spontaneously immediately following it was noted to be intact with three-vessel cord. The perineum and vagina were inspected and noted to have a small second-degree perineal laceration that was repaired in the usual fashion with 3-0 Vicryl Rapide. EBL was 200 cc. Patient and infant tolerated delivery well. Presentation: REGAN Placental Delivery Description: Spontaneous Placenta Disposition: [facility] Cord Vessel Description: 3 Vessels Cord Entanglement: None Estimated Blood Loss: 200 Infant A gender: Male Episiotomy Description: None Laceration: Perineal Extension/lac, 2nd degree Medications given after delivery: IV Pitocin Complications: None Multi Select Codes - Urinary/Genital Urinary/Genital CPT Codes: 61740 Vaginal Delivery [facility]
[2019-06-12] MEDS: oxyCODONE 5 MG Tablet PO ×3 (09:31→19:49)
[2019-06-12 09:41] VITALS: BP 116/62; PULSE 104; RESP 18; TEMP 36; O2SAT 97
[2019-06-12] MEDS: Docusate Sodium 100 MG Capsule PO (12:46)
[2019-06-12] MEDS: Prenatal Vits Tablet 1 TABLET PO (12:46)
[2019-06-12 12:50] VITALS: BP 134/69; PULSE 101; RESP 18; TEMP 36.2; O2SAT 96
[2019-06-12] MEDS: Acetaminophen 500 MG Tablet 1000 MG PO (14:02)
[2019-06-12] MEDS: Senna/Docusate Sodium 1 Tablet PO (15:04)
[2019-06-12 16:18] VITALS: BP 124/73; PULSE 89; RESP 18; TEMP 36.7; O2SAT 96
[2019-06-12 19:50] VITALS: BP 130/70; PULSE 88; RESP 16; TEMP 36.8; O2SAT 97
[2019-06-13 00:55] VITALS: BP 124/68; PULSE 94; RESP 16; TEMP 36.4; O2SAT 96
[2019-06-13] MEDS: Ibuprofen 600 MG Tablet PO ×2 (02:38→10:53)
[2019-06-13] MEDS: oxyCODONE 5 MG Tablet PO (02:38)
[2019-06-13 02:40] VITALS: BP 108/63; PULSE 89; RESP 16; TEMP 36.1
--- NOTE | 2019-06-13 03:38 | DCINST_ITS ---
Discharge Diet: No Restrictions Discharge Activity: Return to Normal Activity, May not drive while taking narcotic pain medications., May Shower May resume sexual activity in: 4-6 weeks Call your doctor if your incision/area has: Continuous Slow Oozing, Sudden Increased Bleeding, Increased Pain/ Swelling, Increased Redness, Foul Smelling Discharge Additional Instructions: If you experience any of the following, contact your healthcare provider. * Bleeding that soaks a pad every hour for 2 hours * Fever 100.4 or higher * Unrelieved incision or abdominal pain * Swelling, redness, discharge or bleeding from your incision or episiotomy site * Your incision begins to separate * Problems urinating (including inability to urinate or burning while urinating). * Visual changes * Severe headache * Flu-like symptoms * Pain or redness in one of both of your breasts * Pain, warmth, tenderness or swelling in your legs, especially the calf area * Frequent nausea and vomiting * Symptoms of depression or anxiety If you experience any of the following, call 911 or go to the nearest Emergency Room. * Chest pain * Problems breathing * Seizure activity * Partial or complete paralysis of a body part, slurred speech, weakness or drooping of the face, or a sudden inability to walk or hold your balance Allergies/Adverse Reactions: Allergies amoxicillin Allergy (Verified 06/11/19 14:01) Hives naproxen [From Aleve] Allergy (Verified 06/11/19 14:01) Hives sulfamethoxazole [From Bactrim] Allergy (Verified 06/11/19 14:01) Hives trimethoprim [From Bactrim] Allergy (Verified 06/11/19 14:01) Hives Medications to take at Discharge vitamin#30 30 mg iron-10 mg iron-folic acid 1 mg-omg3 capsule 1 cap PO DAILY cap 11/18/18 cholecalciferol (vitamin D3) 1,000 unit capsule 1,000 unit PO DAILY 04/08/19 docosahexanoic acid 300 mg capsule mg PO cap 04/08/19 Docusate Sodium [Colace] 100 mg PO DAILY 06/11/19 Valacyclovir HCl [Valacyclovir] 500 mg PO BID 06/11/19 Ibuprofen [Motrin] 600 mg PO Q6H PRN PRN #30 tab 06/13/19 Please Follow Up With: Dulce Hyatt MD - [phone] When: Call to make an appointment with your doctor in 6 weeks. If you had elevated Blood pressure or 4th degree laceration you will need to be seen in 2 weeks. Primary Care Physician: Ariadne Rivers MD [Primary Care Provider] - Test Results: Test results from this visit will be discussed in further detail at your follow- up appointment, if applicable.
--- NOTE | 2019-06-13 03:40 | PCM.PN.OB ---
Patient Problems: Active and Suspected Problems (Last Reviewed 06/09/19 @ 11:50 by Yolanda Cox) Large for gestational age fetus (Acute) Subjective: doing well no complaints pain controlled no CP SOB N V ambulating well tolerating po lochia moderate, going well - Physical Exam Vitals/I&O's: Vital Signs Temp Pulse Resp BP Pulse Ox 97.0 F L 89 16 108/63 96 06/13/19 02:40 06/13/19 02:40 06/13/19 02:40 06/13/19 02:40 06/13/19 00:55 Oxygen Delivery Method Room Air Weight: 211 lb Body Mass Index (BMI) 34.0 Intake and Output for Last 24 Hours 06/11/19 06/12/19 06/13/19 23:59 23:59 23:59 Intake Total / 1310.00 / 1310.00 Output Total 1100 / 1100 Balance / 210.00 / 210.00 General: Alert, Oriented x3 Current Medications Acetaminophen (Tylenol) 1,000 mg PO Q8H PRN PRN PRN Reason: Pain Score 1-3/10 Last Admin: 06/12/19 14:02 Dose: 1,000 mg Documented by: Bisacodyl (Dulcolax) 10 mg RECTAL UD PRN PRN Reason: If no BM Cholecalciferol (Vitamin D) 1,000 unit PO DAILY [facility] Last Admin: 06/12/19 12:46 Dose: 1,000 unit Documented by: Dibucaine (Dibucaine) 1 applic TOPICAL TID PRN PRN; Protocol PRN Reason: Discomfort Docusate Sodium (Colace) 100 mg PO DAILY [facility] Last Admin: 06/12/19 12:46 Dose: 100 mg Documented by: Hydrocortisone (Hytone) 1 applic TOPICAL TID PRN PRN; Protocol PRN Reason: Discomfort Ibuprofen (Motrin) 600 mg PO Q6H PRN PRN PRN Reason: Pain Score 1-3/10 Last Admin: 06/13/19 02:38 Dose: 600 mg Documented by: Methylergonovine Maleate (Methergine) 0.2 mg IM X1 PRN PRN Reason: Excess bleeding/uterine atony Ondansetron HCl (Zofran) 4 mg IV Q4H PRN PRN PRN Reason: Nausea Oxycodone HCl (Oxyir) 5 - 10 mg PO Q4H PRN PRN PRN Reason: Pain Score 4-10/10 Last Admin: 06/13/19 02:38 Dose: 5 mg Documented by: Multivit/Folic Acid/Iron (Prenatabs Fa) 1 tablet PO DAILY@1200 VIJAY Last Admin: 06/12/19 12:46 Dose: 1 tablet Documented by: Senna/Docusate Sodium (Senokot-S, Dora-Colace) 1 - 2 tablet PO DAILY PRN PRN PRN Reason: Constipation Last Admin: 06/12/19 15:04 Dose: 1 tablet Documented by: Simethicone (Mylicon) 80 mg PO PCHS PRN PRN Reason: Indigestion/Stomach pain Sodium Chloride () 5 - 15 ml IV UD PRN PRN Reason: SALINE FLUSH Medical Necessity - Tobacco Use Smoking Status: Never smoker Assessment/Plan All Active Problems (Last Reviewed 06/09/19 @ 11:50 by Yolanda Cox) Large for gestational age fetus (Acute) Genital HSV (Acute) Anxiety during (Acute) Supervision of other normal (Acute) (Acute) Short interval between pregnancies affecting in first trimester, antepartum (Acute) Encounter for supervision of with history of infertility (Resolved) Genital herpes affecting (Resolved) Marginal placenta previa (Resolved) Oligohydramnios (Resolved) (Resolved) Segmental and somatic dysfunction of cervical region (Resolved) Segmental and somatic dysfunction of lumbar region (Resolved) Segmental and somatic dysfunction of sacral region (Resolved) s/p PPD # 1 1. routine post delivery care 2. breast feeding- support given 3. rh positive 4. rubella immune
[2019-06-13 08:00] VITALS: BP 104/66; PULSE 87; RESP 18; TEMP 35.9
[2019-06-13] MEDS: Acetaminophen 500 MG Tablet 1000 MG PO ×2 (08:13→15:07)
[2019-06-13] MEDS: Docusate Sodium 100 MG Capsule PO (08:14)
[2019-06-13] MEDS: Prenatal Vits Tablet 1 TABLET PO (10:54)
[2019-06-13 15:09] VITALS: BP 114/64; PULSE 83; RESP 16; TEMP 36.6
--- NOTE | 2019-06-13 16:20 | CASEMGMT ---
Social Work Referral Date:06/12/19 Date of Assessment:06/13/19 Reason for Consult: Mother of baby (MOB) with history of depression. Informant: Dr. Hyatt Personal Status Mentation: A&Ox3 Present during assessment: MOB, Father of baby (FOB) and . Hx : 2 Hx Para: 1 Infant Gender: Male Name: Blaze Warren (1min): 9 (5min): 9 Care: Adequate Alleged father: Finesse Warren Alleged father involved: Yes Length of Relationship with alleged father of baby: MOB and FOB have been for 3 years. FOB Mental Health/AOD/Domestic Violence Hx: Denies FOB Employment: Full-time [employer] Number of Children in the home: This is second child for both MOB and FOB. Vincent is 15months old and now older brother to Blaze. Custody Comments: MOB and FOB have full custody of this and Vincent Living Arrangements: MOB, FOB, Vincent, and not this live in a private home. Education: [employer] degree. 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 MOB has 3 months of maternity leave. Family Dynamics/Relationships: MOB reporting positive family dynamics and support. Supports: MOB stating to have support from FOB and family. FOB has 2-4 weeks of work. Transportation: No concerns. Substance Abuse Hx and Current Pattern of Use MOB and FOB deny any substance abuse or use. Mental Health Hx and Current Status MOB stating to have a history of anxiety and depression with first child. MOB denies any history of suicidal thoughts. MOB stating to be in counseling for support and healthy habits. MOB denies any concerns or issues with returning to home. MOB aware and able to have a discussion with this community mental health social worker about signs/symptoms of depression. MOB provided with resources on depression and encouraged to continue with counseling services. MOB stating to have on going active counseling. MOB denies any current medication to manage medication. MOB stating that Dr. Hyatt did prescribe MOB Celexa but that MOB never picked up the prescription as MOB felt fine and was doing okay with counseling and support from family. MOB stating that FOB and MOB's mother are positive supports for MOB and hear all about my life. Items/Skills List for Infants Care Supplies: MOB stating to have all needed supplies for within the home (car seat, infant clothing, bassinet, crib, etc.). Bonding With : MOB reporting to have a connection with . MOB stating that was not planned but not avoided either. MOB stating we understand how babies are made. Observed Maternal/Paternal Child interaction: MOB holding infant during assessment. MOB gazing at and finger tipping often. MOB planning to breastfeed and stating that this is going well. Emotional Assessment: MOB presenting with a positive affect. MOB engaged in assessment. MOB with a pleasant presentation and smiling often. Control: Do not plan to start control as we are in the season of having babies. Resources Help Me Grow: Information provided. No referral made. Children Protective Services Hx: No history. Provided MOB with [facility] resource [facility], local counseling agencies, and depression information. Intervention: Social work assessment. Active listening and support. Plan: Infant to discharge to home with MOB, RYAN and Louie. Omar Lainez MSW, AMI
--- NOTE | 2019-06-13 17:01 | NURSING ---
1710 and maternal bracelet numbers match; placed in car seat per parents dc to home
== END 2019-06-13 17:10 | disposition home or self-care (01) | DRG 807 ==
PROVIDERS: Admitting Provider Obstetrics & Gynecology; Family Provider Family Medicine; PCP Family Medicine; Referring Provider Obstetrics & Gynecology; Visit Provider Obstetrics & Gynecology
DX: O98.32 Other infections with a predominantly sexual mode of transmission complicating childbirth (principal); Z37.0 Single live birth; O99.344 Other mental disorders complicating childbirth; F41.9 Anxiety disorder, unspecified; O70.1 Second degree perineal laceration during delivery; Z3A.39 39 weeks gestation of pregnancy; A60.00 Herpesviral infection of urogenital system, unspecified
CPT/HCPCS: 59025; 59050; 85025; 86850; 86900; 86901; 99218; J7120; G0378; J2405

== ENCOUNTER → 2020-01-26 08:47 | Outpatient (CLI) | payer OTHER, SELFPAY ==
[2019-07-21 12:48] VITALS: BMI 34.0
[2020-01-26 09:55] LABS: Absolute Lymphocyte Count 2.34 X10^3/uL (0.83-4.51); Basophil# 0.02 X10^3/uL; Basophil% 0.4 % (0-1); Eosinophil# 0.04 X10^3/uL; Eosinophils% 0.8 % (0-5); Hematocrit 40.5 % (37-47); Hemoglobin 13.3 g/dL (12.0-15.0); Lymphocyte # 2.34 X10^3/ul (4.0); Lymphocyte % 49.2 % (19-41); Mean Corp Hgb Conc 32.8 g/dL (32-36); Mean Corpuscular Hgb 29.4 pg (27.0-32.0); Mean Corpuscular Volume 89.6 fL (81-99); Mean Platelet Vol. 9.8 fl (6.2-12.0); Monocyte# 0.34 X10^3/uL; Monocyte% 7.1 % (0-10); NRBC Flagged by Analyzer 0 % (0-5); Neutrophil # 2.01 X10^3/uL (2.7-7.7); Neutrophil % 42.3 % (47-70); Platelet Count 168 K/mm3 (150-450); RBC Distribution Width CV 12.1 % (11.6-14.6); RBC Distribution Width SD 38.5 fl (35.1-43.9); Red Blood Count 4.52 M/mm3 (4.2-5.4); White Blood Count 4.8 K/mm3 (4.4-11.0)
== END ==
PROVIDERS: PCP Family Medicine; Referring Provider Family Medicine; Visit Provider Family Medicine
DX: L60.8 Other nail disorders (principal)
CPT/HCPCS: 36415; 85025

== ENCOUNTER → 2020-01-28 10:15 | Outpatient (CLI) | payer OTHER, SELFPAY ==
[2019-07-21 12:48] VITALS: BMI 34.0
== END ==
PROVIDERS: PCP Family Medicine; Referring Provider Family Medicine; Visit Provider Family Medicine
DX: Z20.828 Contact with and (suspected) exposure to other viral communicable diseases (principal)
CPT/HCPCS: 87635; G2023; U0003

== ENCOUNTER → 2020-02-17 13:05 | Outpatient (CLI) | payer OTHER, SELFPAY ==
[2019-07-21 12:48] VITALS: BMI 34.0
--- NOTE | 2020-02-17 13:08 | ECHOD_ITS ---
Reason For Study: Splinter Hemmorhage of Fingernail Procedure This was a 2D Doppler, Color Flow transthoracic echocardiogram. Contrast injection was performed. Exam performed in department. Left Ventricle Normal size and thickness. The estimated ejection fraction is 65 %. Normal diastology for age. No regional wall motion abnormalities noted. Right Ventricle Normal size and thickness. Normal systolic function. Atria Normal left atrium. Normal right atrium. Normal atrial septum. Bubble contrast study negative for right to left interatrial shunt. Mitral Valve The mitral valve is structurally normal. No prolapse or stenosis seen. Tricuspid Valve Normal tricuspid valve. Trivial tricuspid valve insufficiency. Unable to estimate RV systolic pressure due to insufficient tricuspid regurgitant envelope. Aortic Valve Normal aortic valve. Trisinus/trileaflet aortic valve. Pulmonic Valve Normal pulmonic valve. Great Vessels Normal aortic root. Normal arch. Normal inferior vena cava. Inferior vena cava collapse with sniff. Pericardium/Pleural No pericardial effusion. Medication 22 gauge I.V. with prn adaptor inserted into right arm. Performed a rapid injection of agitated mix of 9 cc saline and 1cc air to assess for atrial septal defect. MMode/2D Measurements & Calculations LVIDd: 4.8 cm IVSd: 0.91 cm LA dimension: 3.2 cm LVIDs: 2.6 cm LVPWd: 0.87 cm RVDd: 3.5 cm FS: 47.1 % LAV(MOD-bp): 32.1 ml LA A4 area: 12.2 cm2 RA A4 area: 11.8 cm2 LAV(MOD-bp) Indexed: 17.8 ml/m2 LAV(MOD-sp2): 36.2 ml LAV(MOD-sp4): 27.9 ml Time Measurements MV dec time: 0.16 sec Doppler Measurements & Calculations MV E max daron: 87.6 cm/sec Lat Peak E' Daron: 16.9 cm/sec Med Peak E' Daron: 13.9 cm/sec MV A max daron: 70.6 cm/sec E/E' lat: 5.2 E/E' med: 6.3 MV E/A: 1.2 MV V2 max: 90.6 cm/sec MV P1/2t max daron: 90.1 cm/sec Ao V2 max: 125.8 cm/sec MV max P.3 mmHg MV P1/2t: 78.7 msec Ao max P.3 mmHg MV V2 mean: 54.0 cm/sec MV dec slope: 335.1 cm/sec2 Ao V2 mean: 90.6 cm/sec MV mean P.3 mmHg Ao mean P.6 mmHg MV V2 VTI: 22.7 cm MVA(P1/2t): 2.8 cm2 Ao V2 VTI: 25.2 cm LV V1 max: 92.9 cm/sec PA V2 max: 98.1 cm/sec LV V1 max P.4 mmHg LV V1 mean P.7 mmHg LV V1 mean: 58.2 cm/sec LV V1 VTI: 18.0 cm Interpretation Summary The estimated ejection fraction is 65 %. Normal diastology for age. Trivial tricuspid valve insufficiency. Unable to estimate RV systolic pressure due to insufficient tricuspid regurgitant envelope. Bubble contrast study negative for right to left interatrial shunt. There is no evidence of a mass or vegetation. This does not rule out endocarditis. There is no comparison study available. Ordering Physician: Ariadne Rivers Referring Physician: Ariadne Rivers Performed By: Elmer Hutchinson RCS
== END ==
PROVIDERS: PCP Family Medicine; Referring Provider Family Medicine; Visit Provider Family Medicine
DX: L60.8 Other nail disorders (principal)
CPT/HCPCS: 93306; A4216

== ENCOUNTER → 2020-03-07 16:16 | Outpatient (CLI) | payer OTHER, SELFPAY ==
[2020-03-07 15:06] VITALS: BMI 24.9
== END ==
PROVIDERS: PCP Family Medicine; Referring Provider Specialist; Visit Provider Specialist
DX: R42 Dizziness and giddiness (principal); R06.02 Shortness of breath
CPT/HCPCS: 36415; 87040

== ENCOUNTER → 2020-03-08 14:10 | Outpatient (CLI) | payer OTHER, SELFPAY ==
[2020-03-07 15:06] VITALS: BMI 24.9
== END ==
PROVIDERS: PCP Family Medicine; Referring Provider Specialist; Visit Provider Specialist
DX: R42 Dizziness and giddiness (principal); R06.02 Shortness of breath
CPT/HCPCS: 36415; 87040

== ENCOUNTER → 2020-04-21 17:34 | Outpatient (CLI) | payer OTHER, SELFPAY ==
[2020-03-07 15:06] VITALS: BMI 24.9
== END ==
PROVIDERS: PCP Family Medicine; Referring Provider Family Medicine; Visit Provider Family Medicine
DX: Z20.828 Contact with and (suspected) exposure to other viral communicable diseases (principal)
CPT/HCPCS: 87635; C9803; U0003

== ENCOUNTER → 2020-06-06 11:38 | Outpatient (CLI) | payer OTHER, SELFPAY ==
[2020-06-06 10:30] VITALS: BMI 24.5
[2020-06-06 12:19] LABS: Absolute Lymphocyte Count 2.23 X10^3/uL (0.83-4.51); Absolute Neutrophil Count 5.7 X10^3/uL (2.0-7.7); Basophil# 0.02 X10^3/uL; Basophil% 0.2 % (0-1); Eosinophil# 0.01 X10^3/uL; Eosinophils% 0.1 % (0-5); Hematocrit 39.8 % (37-47); Lymphocyte # 2.23 X10^3/ul (4.0); Lymphocyte % 26.6 % (19-41); Mean Corp Hgb Conc 32.7 g/dL (32-36); Mean Corpuscular Volume 88.8 fL (81-99); Mean Platelet Vol. 9.1 fl (6.2-12.0); Monocyte# 0.43 X10^3/uL; Monocyte% 5.1 % (0-10); NRBC Flagged by Analyzer 0 % (0-5); Neutrophil # 5.65 X10^3/uL (2.7-7.7); Neutrophil % 67.5 % (47-70); Platelet Count 212 K/mm3 (150-450); RBC Distribution Width CV 12.1 % (11.6-14.6); RBC Distribution Width SD 39.8 fl (35.1-43.9); Red Blood Count 4.48 M/mm3 (4.2-5.4); White Blood Count 8.4 K/mm3 (4.4-11.0)
[2020-06-06 13:26] LABS: HIV - WCH Non-Reactive (Nonreactive); Hepatitis B Surface Antigen Non-Reactive (Nonreactive); Hepatitis C Antibody Non-Reactive (Nonreactive); Rubella IgG Reactive (Nonreactive)
[2020-06-06 18:05] LABS: Amphetamine Urine VISTA NEGATIVE (<1000 ng/mL); Barbiturate Urine VISTA NEGATIVE (< 200 ng/mL); Benzodiazepine Urine VISTA NEGATIVE (< 200 ng/mL); Cocaine Urine VISTA NEGATIVE (< 300 ng/mL); Ecstacy Urine VISTA NEGATIVE (< 500 ng/mL); Methadone Urine VISTA NEGATIVE (< 300 ng/mL); PCP Urine VISTA NEGATIVE (< 25 ng/mL); THC Urine VISTA NEGATIVE (< 50 ng/mL); Vista UDS pH Range 6
[2020-06-09 02:17] LABS: Rapid Plasmin Reagin (RPR) NONREACTIVE (NONREACTIVE)
[2020-06-09 03:07] LABS: Chlamydia By Nucleic Acid AMP Negative (Negative)
[2020-06-09 06:32] LABS: Gonococcus By Nucleic Acid AMP Negative (Negative)
== END ==
PROVIDERS: PCP Family Medicine; Referring Provider Obstetrics & Gynecology; Visit Provider Obstetrics & Gynecology
DX: Z34.80 Encounter for supervision of other normal pregnancy, unspecified trimester (principal)
CPT/HCPCS: 36415; 80307; 85025; 86592; 86703; 86762; 86803; 86850; 86900; 86901; 87086; 87340; 87491; 87591

== ENCOUNTER → 2020-09-02 10:37 | Outpatient (CLI) | payer OTHER, SELFPAY ==
[2020-09-02 09:52] VITALS: BMI 26.8
[2020-09-02 11:45] LABS: NATERA MAILED SPECIMEN
== END ==
PROVIDERS: PCP Family Medicine; Referring Provider Obstetrics & Gynecology; Visit Provider Obstetrics & Gynecology
DX: O35.0XX0 Maternal care for (suspected) central nervous system malformation in fetus, not applicable or unspecified (principal); Z3A.00 Weeks of gestation of pregnancy not specified

== ENCOUNTER → 2020-09-28 17:38 | Outpatient (CLI) | payer OTHER, SELFPAY ==
[2020-09-28 15:31] VITALS: BMI 28.1
== END ==
PROVIDERS: PCP Family Medicine; Visit Provider Obstetrics & Gynecology
DX: Z34.90 Encounter for supervision of normal pregnancy, unspecified, unspecified trimester (principal)
CPT/HCPCS: 87086; 87088

== ENCOUNTER → 2020-10-14 13:34 | Outpatient (CLI) | payer OTHER, SELFPAY ==
[2020-09-28 15:31] VITALS: BMI 28.1
[2020-10-14 14:39] LABS: Glucose Challenge Gest 1H 50g 99 mg/dL (70-140)
== END ==
PROVIDERS: PCP Family Medicine; Referring Provider Nurse Practitioner Women's Health; Visit Provider Nurse Practitioner Women's Health
DX: Z13.1 Encounter for screening for diabetes mellitus (principal)
CPT/HCPCS: 36415; 82950

== ENCOUNTER 2020-12-08 00:56 | Emergency (ER) | payer OTHER, SELFPAY ==
[2020-11-28 09:29] VITALS: BMI 28.8
[2020-12-08 00:56] VITALS: BP 140/90; PULSE 98; RESP 18; TEMP 36.4; O2SAT 94; BMI 31.7
--- NOTE | 2020-12-08 01:09 | EDS_ITS ---
HPI History of Present Illness Chief Complaint: Ear Problem Narrative Narrative: Patient presents with pain in her left ear since earlier today. She woke up with it. It is aching and throbbing. She thinks she has an ear infection. Allergy to penicillin. 35 weeks with no complications. Using Tylenol for symptoms. Comes in for further evaluation. Current severity is moderate. [facility] Medical History (Updated 12/08/20 @ 01:[address] Hermilo Gaspar MD) Anxiety and depression Dizziness Genital herpes GERD (gastroesophageal reflux disease) Hemorrhoid Shortness of breath Home Medications alprazolam 0.5 mg tablet 0.5 mg PO BID PRN 03/02/20 [History Last Taken Unknown] cholecalciferol (vitamin D3) 125 mcg (5,000 unit) tablet 125 mcg PO DAILY 03/07/20 [History Last Taken Unknown] prenat.vits,roxana,pax-telz-ztoib 1 tab PO QHS 03/07/20 [History Last Taken Unknown] ascorbic acid (vitamin C) 500 mg tablet 1.5 g PO DAILY tab 05/04/20 [History Last Taken Unknown] aspirin 81 mg tablet,delayed release 81 mg PO DAILY 08/02/20 [History Last Taken Unknown] hydrocortisone 2.5 % topical ointment 1 applic TOPICAL BID #28.35 gm 09/26/20 [Rx Last Taken Unknown] cefdinir 300 mg PO BID 7 Days #14 cap 12/08/20 [Rx Last Taken Unknown] Allergy/AdvReac Type Severity Reaction Status Date / Time amoxicillin Allergy Hives Verified 12/08/20 01:00 naproxen [From Aleve] Allergy Hives Verified 12/08/20 01:00 sulfamethoxazole Allergy Hives Verified 12/08/20 01:00 [From Bactrim] trimethoprim [From Bactrim] Allergy Hives Verified 12/08/20 01:00 Family History Grandfather Diabetes Heart disease Surgical History H/O eye surgery Social History adopted: No household members: family number of children: 2 current occupational status: employed current occupation: [employer] sexually active: Yes Smoking Status: Never smoker alcohol intake: never substance use type: does not use caffeine: No what type of physical activity do you participate in: none seatbelt use: always do you feel safe at home: Yes additional social history: Finesse Sloan works at [employer] ROS ROS ED ROS Narrative ROS General: Denies fever, chills, sweats Eyes: Denies visual changes, blurred vision, double vision ENT: See HPI Cardiovascular: Denies chest pain, palpitations, heart racing Respiratory: Denies dyspnea, cough, sputum, dyspnea on exertion, orthopnea,PND GI: Denies abdominal pain, nausea, vomiting, diarrhea, constipation, melena : Denies dysuria, hematuria, frequency Musculoskeletal: Denies myalgias, arthralgias, neck pain, back pain Skin: Denies rash, abscess, abrasions Neuro: Denies headache, weakness, paresthesia Psych: Denies depression, anxiety Endo: Denies polyuria, polydipsia, polyphagia Heme: Denies easy bruising, easy bleeding, lymphadenopathy Allergy: Denies hives, swelling EXAM Physical Exam Narrative Exam Narrative: Vital signs reviewed General: Well-nourished well-developed Head: Normocephalic atraumatic Eyes: Pupils equal round and reactive to light extraocular movements intact ENT: Left TM red and irritated with decreased landmarks consistent with otitis media Neck: Nontender full range of motion Cardiovascular: Regular rate rhythm no murmurs normal S1-S2 Respiratory: No distress clear to auscultation bilaterally chest nontender Abdomen: Soft nontender nondistended normal bowel sounds no masses Back: Nontender no CVA tenderness Extremities: Nontender active range of motion ?4 extremities no trauma Skin: Normal color no trauma Neuro alert oriented cranial nerves II through XII intact normal strength sensation reflexes Const Vital Signs: 12/08/20 00:56 12/08/20 01:00 Temperature 97.5 F L Temperature Source Temporal Pulse Rate 98 Respiratory Rate 18 Respiratory Effort Normal Non-Labored Respiratory Pattern Normal Blood Pressure 140/90 H Blood Pressure Mean 106 Pulse Ox 94 Oxygen Delivery Method Room Air MDM MDM MDM Narrative Medical decision making narrative: Given Omnicef for acute otitis media. First dose given in the department. Took Tylenol at home. To follow-up as an outpatient Discharge Plan Triage Chief Complaint: Ear Problem Other Complaint: General Illness ED Provider: Hermilo Gaspar Dx/Rx/DC Orders Clinical Impression: Acute otitis media Instructions: ED Otitis Media Antibiotic ... Prescriptions: New cefdinir 300 mg capsule 300 mg PO BID 7 Days Qty: 14 RF: 0 No Action prenat.vits,roxana,deb-zxxi-bwjib Tablet 1 tab PO QHS RF: 0 cholecalciferol (vitamin D3) 125 mcg (5,000 unit) tablet 125 mcg PO DAILY RF: 0 ascorbic acid (vitamin C) 500 mg tablet 1.5 g PO DAILY RF: 0 alprazolam 0.5 mg tablet 0.5 mg PO BID PRN (Reason: Anxiety) RF: 0 aspirin 81 mg tablet,delayed release (DR/EC) 81 mg PO DAILY RF: 0 hydrocortisone 2.5 % ointment 1 applic TOPICAL BID Qty: 28.35 RF: 1 Primary Care Provider: Ariadne Rivers Referrals: Ariadne Rivers MD [Primary Care Provider] - Disposition Disposition: Home, self care
[2020-12-08] MEDS: Cefdinir 300 MG Capsule PO (01:43)
== END 2020-12-08 01:45 | disposition home or self-care (01) ==
PROVIDERS: Emergency Provider Emergency Medicine; PCP Family Medicine
DX: O26.893 Other specified pregnancy related conditions, third trimester (principal); H66.92 Otitis media, unspecified, left ear; Z3A.35 35 weeks gestation of pregnancy; Z88.0 Allergy status to penicillin
CPT/HCPCS: 99283

== ENCOUNTER → 2020-12-15 12:32 | Outpatient (CLI) | payer OTHER, SELFPAY ==
[2020-12-12 13:05] VITALS: BMI 31.7
[2020-12-15 13:26] LABS: Absolute Lymphocyte Count 1.96 X10^3/uL (0.83-4.51); Absolute Neutrophil Count 6.9 X10^3/uL (2.0-7.7); Basophil# 0.06 X10^3/uL; Basophil% 0.6 % (0-1); Hematocrit 35.9 % (37-47); Lymphocyte # 1.96 X10^3/ul (0.83-4.51); Lymphocyte % 19.7 % (19-41); Mean Corp Hgb Conc 33.4 g/dL (32-36); Mean Corpuscular Hgb 30.4 pg (27.0-32.0); Mean Corpuscular Volume 90.9 fL (81-99); Mean Platelet Vol. 9.3 fl (6.2-12.0); Monocyte# 0.61 X10^3/uL; Monocyte% 6.1 % (0-10); NRBC Flagged by Analyzer 0 % (0-5); Neutrophil # 6.85 X10^3/uL (2.7-7.7); Neutrophil % 69.1 % (47-70); Platelet Count 148 K/mm3 (150-450); RBC Distribution Width SD 39.7 fl (35.1-43.9); Red Blood Count 3.95 M/mm3 (4.2-5.4); White Blood Count 9.9 K/mm3 (4.4-11.0)
== END ==
PROVIDERS: PCP Family Medicine; Referring Provider Obstetrics & Gynecology; Visit Provider Obstetrics & Gynecology
DX: Z34.80 Encounter for supervision of other normal pregnancy, unspecified trimester (principal)
CPT/HCPCS: 36415; 85025

== ENCOUNTER → 2020-12-22 14:28 | Outpatient (CLI) | payer OTHER, SELFPAY ==
[2020-12-22 10:53] VITALS: BMI 31.7
== END ==
PROVIDERS: PCP Family Medicine; Referring Provider Obstetrics & Gynecology; Visit Provider Obstetrics & Gynecology
DX: Z34.93 Encounter for supervision of normal pregnancy, unspecified, third trimester (principal); Z3A.37 37 weeks gestation of pregnancy
CPT/HCPCS: 87081

== ENCOUNTER 2021-01-13 06:30 | Inpatient (IN) | payer OTHER, SELFPAY ==
[2020-09-02 09:52] VITALS: BMI 26.8
[2021-01-05 12:05] VITALS: BMI 31.7
[2021-01-13] VITALS (36 sets, daily range): BP systolic 93–199; BP diastolic 55–128; PULSE 85–123; RESP 16; TEMP 36.4–37.1; O2SAT 86–99; BMI 32.0
[2021-01-13 07:14] LABS: ROM Internal Control Test YES-OK TO RESULT pt. (Internal QC)
[2021-01-13 07:16] LABS: ROM Patient Test POSITIVE (Negative)
--- NOTE | 2021-01-13 07:27 | HP.PCM.OB_ITS ---
HPI - General General Date of Admission: 01/13/21 HPI Narrative SHIRA ARBOLEDA, is a 30 F who presents in active labor with clear spontaneous rupture of membranes. Patient made cervical change to 3/-2. She has also had bloody show without any heavy bleeding. Maternal Data Information TIFFANY Calculator Estimated Delivery Date Method Current WG Current Estimate 01/12/21 LMP (Certain) 40w 1d PFSH [facility] Medical History (Updated 01/13/21 @ 07:[address] Dulce Hyatt MD) Anxiety and depression Dizziness Genital herpes GERD (gastroesophageal reflux disease) Hemorrhoid Shortness of breath Home Medications alprazolam 0.5 mg tablet 0.5 mg PO BID PRN 03/02/20 [History Last Taken Unknown] cholecalciferol (vitamin D3) 125 mcg (5,000 unit) tablet 125 mcg PO DAILY 03/07/20 [History Last Taken 2 Days Ago ~01/11/21] prenat.vits,roxana,xog-lyvu-rfkji 1 tab PO QHS 03/07/20 [History Last Taken 2 Days Ago ~01/11/21] aspirin 81 mg tablet,delayed release 81 mg PO DAILY 08/02/20 [History Last Taken 3 Days Ago ~01/10/21] docosahexaenoic acid [DHA ] 200 mg PO DAILY 01/13/21 [History Last Taken 2 Days Ago ~01/11/21] valacyclovir [Valtrex] 500 mg PO QDAY 01/13/21 [History Last Taken 2 Days Ago ~01/11/21] Allergy/AdvReac Type Severity Reaction Status Date / Time amoxicillin Allergy Hives Verified 01/13/21 07:09 naproxen [From Aleve] Allergy Hives Verified 01/13/21 07:09 sulfamethoxazole Allergy Hives Verified 01/13/21 07:09 [From Bactrim] trimethoprim [From Bactrim] Allergy Hives Verified 01/13/21 07:09 Family History Grandfather Diabetes Heart disease Surgical History H/O eye surgery Social History adopted: No household members: family number of children: 2 current occupational status: employed current occupation: [employer] sexually active: Yes Smoking Status: Never smoker alcohol intake: never substance use type: does not use caffeine: No what type of physical activity do you participate in: none seatbelt use: always do you feel safe at home: Yes additional social history: Finesse Sloan works at [employer] History 3 Elective abortions Hx Para 2 Spontaneous abortions Hx # Term Pregnancies Ectopic pregnancies Hx # Pregnancies Multiple births # of living children 2 Past Pregnancies Del. Date Name GA/Weeks Outcome Route Bth Weight Infant Gen Labor Lgth Anesthesia Del Locatn Provider FOB 03/21/18 Justin 40 live - full term 9lbs 7oz Male epi dural [facility] Finesse 06/12/19 Tevin 40 live - full term 8lbs 8oz Male ep idural [facility] Dr. Olena Kilpatrick Delivery Date: 03/21/18 Prolonged labor, [place] Elvira Travis Delivery Date: 06/12/19 hypotension during labor Elvira Travis Visit Details Expected Delivery Route/Plan (by SM) Labor Preferences- labor support person: finesse labor intervention preferences: standard of care. pain management options preferred: epidural cut cord/dad catch: no : yes PP control planned: NFP discussed possible routes of delivery and associated risks: [] special requests: [] Plans flu vaccine: declined tdap vaccine: rhogam: na LARC form signed: dec movement and labor precautions reviewed. Problem list reviewed and updated with the most current plan of care details and appropriate orders placed. Relevant counseling for the gestational age provided. Continue routine care and follow up unless otherwise noted in visit notes/problem list details OB Flowsheet Initial Weight: 156 lb Date -?-?-?-?-?-?-?-?-?-?-?-?- EGA Weight BP Urine Prot -?-?-?-?-?-?-?-?-?-?-?-?- Glucose FHR FuHt Pres Dilation -?-?-?-?-?-?-?-?-?-?-?-?- Effaced St Visit Note 06/06/20 -?-?-?-?-?-?-?-?-?-?-?-?- 8w 4d 156 lb 6 oz (+6 oz) 130/78 -?-?-?-?-?-?-?-?-?-?-?-?- 157 -?-?-?-?-?-?-?-?-?-?-?-?- GP - CRL 17.8mm consistent with LMP. 07/06/20 -?-?-?-?-?-?-?-?-?-?-?-?- 12w 6d 159 lb 4 oz (+3 lb 4 oz) 100/80 Negative -?-?-?-?-?-?-?-?-?-?-?-?- Negative 145 -?-?-?-?-?-?-?-?-?-?-?-?- GP - no cramping or bleeding. Anatomy scan ordered. PRR. 08/02/20 -?-?-?-?-?-?-?-?-?-?-?-?- 16w 5d 163 lb (+7 lb) 136/80 Negative -?-?-?-?-?-?-?-?-?-?-?-?- Negative 145 -?-?-?-?-?-?-?-?-?-?-?-?- SM- no vb crampi ng 09/02/20 -?-?-?-?-?-?-?-?-?-?-?-?- 21w 1d 171 lb 4 oz (+15 lb 4 oz) 110/80 Negative -?-?-?-?-?-?-?-?-?-?-?-?- Negative 140 -?-?-?-?-?-?-?-?-?-?-?-?- GP - no LOF, VB, DFM, ctx. Discussed choroid plexus cysts - plan NIPT. Handouts given from ACO[facility] and up to date. Discussed eccentric cord insertion and need for growth ultrasounds. 09/19/20 -?-?-?-?-?-?-?-?-?-?-?-?- 23w 4d 172 lb 6 oz (+16 lb 6 oz) 120/78 Negative -?-?-?-?-?-?-?-?-?-?-?-?- Negative 145 -?-?-?-?-?-?-?-?-?-?-?-?- SM- no vb lof go od fm no reuglar ctx being seen for hemorrhoid. 09/26/20 -?-?-?-?-?-?-?-?-?-?-?-?- 24w 4d 175 lb (+19 lb) 114/80 -?-?-?-?-?-?-?-?-?-?-?-?- 130 24 -?-?-?-?-?-?-?-?-?-?-?-?- Sm- no vb lof go od fm co itching and rash on upper thighs 10/14/20 -?-?-?-?-?-?-?-?-?-?-?-?- 27w 1d 184 lb (+28 lb) 114/60 Negative -?-?-?-?-?-?-?-?-?-?-?-?- Negative 130 27 -?-?-?-?-?-?-?-?-?-?-?-?- sm- NO VB LOF go od fm no regular ctx itching resolved. 11/02/20 -?-?-?-?-?-?-?-?-?-?-?-?- 29w 6d 182 lb 6 oz (+26 lb 6 oz) 120/80 Negative -?-?-?-?-?-?-?-?-?-?-?-?- Negative 135 29 -?-?-?-?-?-?-?-?-?-?-?-?- GP - no LOF, VB, DFM, ctx. GCT normal. Did not have CBC drawn - aware needs to be done. Growths ordered for 32 and 36w. 11/14/20 -?-?-?-?-?-?-?-?-?-?-?-?- 31w 4d 188 lb (+32 lb) 124/76 -?-?-?-?-?-?-?-?-?-?-?-?- 135 32 [place] -?-?-?-?-?-?-?-?-?-?-?-?- SM- no vb lof go od fm no regular ctx 11/28/20 -?-?-?-?-?-?-?-?-?-?-?-?- 33w 4d 192 lb 4 oz (+36 lb 4 oz) 120/78 Negative -?-?-?-?-?-?-?-?-?-?-?-?- Negative 135 33 -?-?-?-?-?-?-?-?-?-?-?-?- GP - no LOF, VB, DFM, ctx. Growth nl. Choroid plexus cysts resolved. 12/12/20 -?-?-?-?-?-?-?-?-?-?-?-?- 35w 4d 196 lb (+40 lb) 116/82 Negative -?-?-?-?-?-?-?-?-?-?-?-?- Negative 140 35 Cephalic -?-?-?-?-?-?-?-?-?-?-?-?- SM- no vb lof go od fm no regular ctx 12/22/20 -?-?-?-?-?-?-?-?-?-?-?-?- 37w 0d 200 lb (+44 lb) 122/74 Negative -?-?-?-?-?-?-?-?-?-?-?-?- Negative 140 37 Cephalic 0 -?-?-?-?-?-?-?-?-?-?-?-?- SM- no vb lof go od fm no reuglar ctx gbs today valtrex ordered 12/29/20 -?-?-?-?-?-?-?-?-?-?-?-?- 38w 0d 201 lb (+45 lb) 120/80 -?-?-?-?-?-?-?-?-?-?-?-?- 140 38 Cephalic 1 -?-?-?-?-?-?-?-?-?-?-?-?- SM- no vb lof go od fm no regular ctx 07/01/21 -?-?-?-?-?-?-?-?-?-?-?-?- 39w 0d 200 lb (+44 lb) 116/80 Negative -?-?-?-?-?-?-?-?-?-?-?-?- Negative 140 39 Cephalic 2 -?-?-?-?-?-?-?-?-?-?-?-?- 20 -3 SM- irregu lar ctx and loose stool, latent phase of labor symptoms no vb lof good fm 01/13/21 -?-?-?-?-?-?-?-?-?-?-?-?- 40w 1d 198 lb 6.656 oz (+42 lb 6.656 oz) 129/83 -?-?-?-?-?-?-?-?-?-?-?-?- -?-?-?-?-?-?-?-?-?-?-?-?- NST FHR Rate Baby A Baseline: 130 Variability:: Minimal and Moderate Accelerations:: 15 x 15 Decelerations:: None NST Reactive:: Yes FHR Category:: Category II (Overall reassuring, start IV fluids, position changes) Uterine Activity:: q3-5 ROS Constitutional Constitutional: Reports systems reviewed and no addt'l complaints, except as documented ENT HEENT: Reports systems reviewed and no addt'l complaints, except as documented Cardiovascular Cardiovascular: Reports systems reviewed and no addt'l complaints, except as documented Respiratory/Chest Respiratory/Chest: Reports systems reviewed and no addt'l complaints, except as documented Gastrointestinal Gastrointestinal: Reports systems reviewed and no addt'l complaints, except as documented and nausea; Denies abdominal pain Genitourinary Genitourinary: Reports systems reviewed and no addt'l complaints, except as documented, contractions Details: present and frequency (regular ) and movement Details: present Musculoskeletal Musculoskeletal: Reports systems reviewed and no addt'l complaints, except as documented Integumentary Integumentary: Reports as per HPI Neurologic Neurologic: Reports systems reviewed and no addt'l complaints, except as documented Endocrine Endocrinology: Reports systems reviewed and no addt'l complaints, except as documented Vital Signs Vital Signs Vital Signs: 01/13/21 06:49 Temperature 98.7 F Temperature Source Temporal Pulse Rate 106 H Blood Pressure 129/83 H BP Systolic 129 BP Diastolic 83 Pulse Ox 95 Weight Weight: 198 lb 6.656 oz Body Mass Index (BMI) 32.0 Physical Exam Const alert, oriented x3 and healthy appearing Constitutional Narrative: uncomfortable with contractions HEENT normocephalic and moist oral mucous membranes Head and Scalp: atraumatic Neck full ROM, no lymphadenopathy, supple and thyroid normal General: trachea midline Thyroid: thyroid normal Lymph Lymphatic: no lymphadenopathy noted Chest inspection of chest normal Resp normal respiratory effort Cardio regular rate GI normal to inspection, nondistended, normoactive bowel sounds, soft to palpation and non-tender Inspection: gravid external exam normal Bimanual Exam - Vag & Uterus: uterus non-tender Manual OB Exam: estimated gestational size appropriate, presentation cephalic, dilated 3, effaced 70 and station -2 Extremity normal to inspection General Extremity: Negative for edema Skin no rashes or lesions noted Neuro deep tendon reflexes 2+ bilaterally Motor Exam: strength 5/5 throughout and clonus absent Psych mental status grossly normal Labs Labs Labs: Blood Type O POSITIVE Antibody Screen NEGATIVE Hct 35.9 % (37-47) L Hgb 12.0 g/dL (12.0-15.0) Obstetrics US Rubella IgG Antibody Reactive (Nonreactive) Hep Bs Antigen Non-Reactive (Nonreactive) Neisseria gonorrhoeae DNA (CARRIE) Negative (Negative) HIV 1&2 Antibody Non-Reactive (Nonreactive) C.trachomatis DNA (PCR) Negative (Negative) Glucose 1 Hr 50 gm 99 mg/dL (70-140) Group B Strep DNA Negative (Negative) Rhogam given: No Miscellaneous Test Assessment & Plan (1) Genital HSV: QUALIFIERS: Herpes simplex infection site: unspecified Qualified Code(s): A60.00 - Herpesviral infection of urogenital system, unspecified COMMENT: plan valtrex at 36 weeks (2) : QUALIFIERS: Weeks of gestation: 39 weeks Qualified Code(s): Z3A.39 - 39 weeks gestation of COMMENT: declines genetic, carrier and NTD; needs additional images for an atomy scan, GBS neg (3) Supervision of other normal : COMMENT: PRR TIFFANY: 01/12/21 [place]! PC: Tevin Anderson Spouse: Finesse (4) COVID-19 affecting , antepartum: COMMENT: At time that she found out that she was . ASA at 12 weeks. Growths 3rd trimester.32 wk 66% growth,36 wk 90% (5) Umbilical cord complication: QUALIFIERS: Umbilical cord complication type: unspecified cord complication Fetus number: single or unspecified fetus Qualified Code(s): O69.9XX0 - Labor and delivery complicated by cord complication, unspecified, not applicable or unspecified COMMENT: Eccentric insertion- 1.5cm from upper edge. FU cord insertion still eccentric (6) Abnormal ultrasound: COMMENT: RT choroid plexus: spongy, small cysts. LT choroid plexus: spongy small cysts; NL NIPT (7) PUPP (pruritic urticarial papules and plaques of ): (8) Active labor at term: PLAN: Patient presents IAL, plan expectant management for , pitocin/AROM PRN if needed. Pain management: Plans epidural. GBS negative. Management of any complications: None I have reviewed the [facility] and made any clinically relevant updates.
[2021-01-13] MEDS: Lactated Ringers 1,000 ML 50 ML IV (07:40)
[2021-01-13 08:05] LABS: Absolute Lymphocyte Count 2.19 X10^3/uL (0.83-4.51); Absolute Neutrophil Count 7.9 X10^3/uL (2.0-7.7); Basophil# 0.04 X10^3/uL; Basophil% 0.4 % (0-1); Eosinophil# 0.05 X10^3/uL; Eosinophils% 0.5 % (0-5); Hematocrit 40.5 % (37-47); Hemoglobin 13.4 g/dL (12.0-15.0); Lymphocyte # 2.19 X10^3/ul (0.83-4.51); Lymphocyte % 20.1 % (19-41); Mean Corp Hgb Conc 33.1 g/dL (32-36); Mean Corpuscular Hgb 29.6 pg (27.0-32.0); Mean Corpuscular Volume 89.4 fL (81-99); Mean Platelet Vol. 9.4 fl (6.2-12.0); Monocyte# 0.57 X10^3/uL; Monocyte% 5.2 % (0-10); NRBC Flagged by Analyzer 0 % (0-5); Neutrophil # 7.86 X10^3/uL (2.7-7.7); Neutrophil % 71.9 % (47-70); Platelet Count 183 K/mm3 (150-450); RBC Distribution Width CV 12.2 % (11.6-14.6); RBC Distribution Width SD 39.2 fl (35.1-43.9); Red Blood Count 4.53 M/mm3 (4.2-5.4); White Blood Count 10.9 K/mm3 (4.4-11.0)
[2021-01-13] MEDS: Lactated Ringers 500 ML 999 ML IV ×3 (10:15→14:15)
[2021-01-13] MEDS: fentaNYL-bupivacaine (epidural) 100 ML BAG EPIDURAL (11:05)
[2021-01-13] MEDS: Lactated Ringers 1,000 ML 200 ML IV ×2 (14:14→15:23)
[2021-01-13] MEDS: Oxytocin 30 units/NS 500 ml 30 UNITS/500 ML IV.SOLN 334 UNITS IV (14:53)
--- NOTE | 2021-01-13 16:43 | EX.PCM.OBRPT ---
Assessment & Plan (1) Spontaneous vaginal delivery: COMMENT: IAL SM Girl 40 (2) Active labor at term: (3) PUPP (pruritic urticarial papules and plaques of ): (4) Abnormal ultrasound: COMMENT: RT choroid plexus: spongy, small cysts. LT choroid plexus: spongy small cysts; NL NIPT (5) Umbilical cord complication: QUALIFIERS: Umbilical cord complication type: unspecified cord complication Fetus number: single or unspecified fetus Qualified Code(s): O69.9XX0 - Labor and delivery complicated by cord complication, unspecified, not applicable or unspecified COMMENT: Eccentric insertion- 1.5cm from upper edge. FU cord insertion still eccentric (6) COVID-19 affecting , antepartum: COMMENT: At time that she found out that she was . ASA at 12 weeks. Growths 3rd trimester.32 wk 66% growth,36 wk 90% (7) Supervision of other normal : COMMENT: PRR TIFFANY: 01/12/21 [place]! PC: Tevin Anderson Spouse: Finesse (8) : QUALIFIERS: Weeks of gestation: 39 weeks Qualified Code(s): Z3A.39 - 39 weeks gestation of COMMENT: declines genetic, carrier and NTD; needs additional images for anatomy scan, GBS neg (9) Genital HSV: QUALIFIERS: Herpes simplex infection site: unspecified Qualified Code(s): A60.00 - Herpesviral infection of urogenital system, unspecified COMMENT: plan valtrex at 36 weeks Maternal Data Information TIFFANY Calculator Estimated Delivery Date Method Current WG Current Estimate 01/12/21 LMP (Certain) 40w 1d Vaginal Delivery Operative Information Date of Procedure: 01/13/21 Pre-Operative Diagnosis: IAL Post-Operative Diagnosis: same Surgery / Procedure Performed: Spontaneous Vaginal Delivery Type of Anesthesia: Epidural Special Medications: none Estimated Blood Loss: 100 Fluids Replaced: crystalloid Findings Description of Procedure: Patient began pushing and delivered the head in the [REGAN] presentation. The head was delivered atraumatically. The anterior and posterior shoulders delivered without complication followed by the rest of the and the was placed on the maternal abdomen. Delayed cord clamping was employed for approximately 60 seconds. Cord was clamped and cut and gentle traction was applied to the cord and the placenta delivered spontaneously immediately following it was noted to be intact with three-vessel cord. The perineum and vagina were inspected and noted to have a small second-degree perineal laceration that was repaired in the usual fashion with 3-0 Vicryl Rapide. EBL was [100 cc]. Patient and tolerated delivery well. Presentation: REGAN Amniotic Membrane Rupture Type: Artificial Amniotic Fluid Description: Clear Placental Delivery Description: Spontaneous Placenta Disposition: [facility] Cord Vessel Description: 3 Vessels Cord Entanglement: None Infant A Gender: Female Delayed Cord Clamping: Yes Post Vaginal Delivery Medications Given After Delivery: IV Pitocin Episiotomy Description: None Laceration: Perineal Extension/lac and 2nd degree Complication Complications: None Procedures Urinary/Genital [id number]: [id number] Vaginal Delivery [facility]
--- NOTE | 2021-01-13 16:45 | PCM.DC ---
Discharge Instructions Diet Discharge Diet: No restrictions Activity Discharge Activity: Return to Normal Activity, May Not Drive (while taking narcotic pain medications.) and May Shower May resume sexual activity in: 4-6 weeks Dressing / Incision Call your doctor if your incision/area has: Continuous Slow Oozing, Sudden Increased Bleeding, Increased Pain/ Swelling, Increased Redness and Foul Smelling Discharge Follow Up Care Please Follow Up With: Dulce Hyatt MD When: Call [phone] to make an appointment with your doctor in 6 weeks. If you had elevated blood pressure or 4th degree laceration, you will need to be seen in 2 weeks. Test Results: Test results from this visit will be discussed in further detail at your follow-up appointment, if applicable. Discharge Plan Admission Admit Date/Time: 01/13/21 06:30 Primary Reason for Your Visit: vaginal delivery Attending Provider: Dulce Hyatt Primary Care Provider: Ariadne Rivers Consulting Providers: Margarita Miller Discharge Orders/Prescriptions Prescriptions: New oxycodone-acetaminophen [Endocet] 5-325 mg tablet 1 tab PO Q4H PRN (Reason: pain) 7 Days Qty: 20 RF: 0 ibuprofen [ibuprofen] 400 MG tablet 800 mg PO Q8H Qty: 30 RF: 1 Continued prenat.vits,roxana,cfj-muwz-xzqky Tablet 1 tab PO QHS RF: 0 cholecalciferol (vitamin D3) 125 mcg (5,000 unit) tablet 125 mcg PO DAILY RF: 0 alprazolam 0.5 mg tablet 0.5 mg PO BID PRN (Reason: Anxiety) RF: 0 docosahexaenoic acid 200 mg Capsule 200 mg PO DAILY RF: 0 Discontinued aspirin 81 mg tablet,delayed release (DR/EC) 81 mg PO DAILY RF: 0 valacyclovir [Valtrex] 500 mg tablet 500 mg PO QDAY RF: 0 Referrals / Follow Up: Ariadne Rivers MD [Primary Care Provider] - Dulce Hyatt MD [STAFF PHYSICIAN] - Disposition Disposition (needs filled in before D/C Order can be placed): Home, Self Care
[2021-01-13] MEDS: Acetaminophen 500 MG Tablet 1000 MG PO (17:51)
[2021-01-13] MEDS: Senna/Docusate Sodium 1 Tablet PO (22:09)
[2021-01-13] MEDS: Ibuprofen 600 MG Tablet PO (23:12)
[2021-01-14 03:48] VITALS: BP 100/58; PULSE 74; RESP 16; TEMP 36.2
[2021-01-14] MEDS: Acetaminophen 500 MG Tablet 1000 MG PO (03:52)
[2021-01-14] MEDS: Ibuprofen 600 MG Tablet PO ×2 (05:35→12:13)
--- NOTE | 2021-01-14 08:15 | PCM.PN.OB ---
Subjective Subjective Patient doing well without complaints. Tolerating PO. Ambulating and voiding without difficulty. feeding well. Denies chest pain, shortness of breath, calf pain/swelling, fevers, chills, lightheadedness. Objective Data Objective Data Vital Signs: Vital Signs Temp Pulse Resp BP Pulse Ox 97.1 F L 74 16 100/58 L 99 01/14/21 03:48 01/14/21 03:48 01/14/21 03:48 01/14/21 03:48 01/13/21 13:58 Oxygen Delivery Method Room Air Weight: 198 lb 6.656 oz Body Mass Index (BMI) 32.0 Intake & Output: Intake and Output for Last 24 Hours 01/12/21 01/13/21 01/14/21 23:59 23:59 23:59 Intake Total 3159.18 / 3159.18 Output Total 1900 / 1900 Balance 1259.18 / 1259.18 Lab / Micro Data Result Diagrams: 01/13/21 07:40 Labs: Laboratory Results - last 24 hr 01/13/21 01/13/21 07:40 08:25 COVID-19 (CARRIE) Cancelled Blood Type O POSITIVE Antibody Screen NEGATIVE Micro: Microbiology 01/13/21 08:25 Mucosa - Nose SARS-CoV-2 Antigen (Rapid) - Final ROS Constitutional Constitutional: Reports systems reviewed and no addt'l complaints, except as documented Cardiovascular Cardiovascular: Reports systems reviewed and no addt'l complaints, except as documented Respiratory/Chest Respiratory/Chest: Reports systems reviewed and no addt'l complaints, except as documented Gastrointestinal Gastrointestinal: Reports systems reviewed and no addt'l complaints, except as documented Physical Exam Const alert, oriented x3 and no apparent distress HEENT Head and Scalp: atraumatic Resp normal respiratory effort GI soft to palpation and non-tender Bimanual Exam - Vag & Uterus: uterus non-tender Uterus Palpation: uterus fundus firm (below Umbilicus) Assessment & Plan (1) Spontaneous vaginal delivery: COMMENT: MICHAELA SUERO SM Girl 41 PLAN: s/p PPD # 1 1. routine post delivery care 2. breast feeding- support given 3. rh positive 4. rubella immune
[2021-01-14 08:54] VITALS: BP 123/68; PULSE 88
[2021-01-14 08:55] VITALS: BP 123/63; PULSE 88; RESP 16; TEMP 36.3
[2021-01-14] MEDS: oxyCODONE 5 MG Tablet PO (12:18)
[2021-01-14 15:10] VITALS: BP 108/65; PULSE 72
--- NOTE | 2021-01-19 15:39 | NURSING ---
no answer on follow up phone call left voicemail
== END 2021-01-14 18:08 | disposition home or self-care (01) | DRG 807 ==
PROVIDERS: Admitting Provider Obstetrics & Gynecology; PCP Family Medicine; Referring Provider Obstetrics & Gynecology; Visit Provider Obstetrics & Gynecology
DX: O98.32 Other infections with a predominantly sexual mode of transmission complicating childbirth (principal); O70.1 Second degree perineal laceration during delivery; O69.89X0 Labor and delivery complicated by other cord complications, not applicable or unspecified; O26.86 Pruritic urticarial papules and plaques of pregnancy (PUPPP); A60.00 Herpesviral infection of urogenital system, unspecified; Z20.822 Contact with and (suspected) exposure to COVID-19; Z79.82 Long term (current) use of aspirin; Z79.899 Other long term (current) drug therapy; Z86.16 Personal history of COVID-19; Z3A.39 39 weeks gestation of pregnancy; Z37.0 Single live birth
CPT/HCPCS: 59050; 84112; 85025; 86850; 86900; 86901; 87426; 99218; J7120; G0378

== ENCOUNTER → 2021-03-02 10:18 | Outpatient (CLI) | payer OTHER, SELFPAY ==
[2021-03-06 20:52] LABS: HPV Reflexed? NOT INDICATED
== END ==
PROVIDERS: PCP Family Medicine; Referring Provider Nurse Practitioner Women's Health; Visit Provider Nurse Practitioner Women's Health
DX: Z12.4 Encounter for screening for malignant neoplasm of cervix (principal)
CPT/HCPCS: 88175; G0145

== ENCOUNTER → 2021-06-06 18:06 | Outpatient (CLI) | payer OTHER, SELFPAY | PROVIDERS: PCP Family Medicine; Visit Provider Family Medicine | DX: Z20.822 Contact with and (suspected) exposure to COVID-19 (principal) | CPT/HCPCS: 87635; U0005; U0003 ==

== ENCOUNTER → 2022-05-03 | Outpatient (CLI) | payer OTHER, SELFPAY ==
[2022-05-03 10:14] LABS: NATERA MAILED SPECIMEN
[2022-05-03 11:32] LABS: Vitamin D,25 Hydroxy 36.8 ng/mL
[2022-05-03 11:37] LABS: Cholesterol 178 mg/dL (200); Glucose 87 mg/dL (74-106); High Density Lipoprotein 47 mg/dL; T4 Free Direct 0.87 ng/dL (0.76-1.46); Thyroid Stim Hormone (TSH) 1.01 uIU/mL (0.358-3.74); Triglycerides 70 mg/dL; Very Low Density Lipoprotein 14 mg/dL (5-40)
== END | disposition home or self-care (01) ==
PROVIDERS: PCP Family Medicine; Visit Provider Obstetrics & Gynecology
DX: Z13.71 Encounter for nonprocreative screening for genetic disease carrier status (principal); Z80.41 Family history of malignant neoplasm of ovary
CPT/HCPCS: 36415; 80061; 82306; 82947; 84439; 84443

== ENCOUNTER → 2022-05-07 | Outpatient (CLI) | payer OTHER, SELFPAY ==
--- NOTE | 2022-05-07 11:52 | US_ITS ---
INDICATION: Thyromegaly. EXAMINATION: Ultrasound US Thyroid (eg thyroid, parathyroid, parotid) TECHNIQUE: Luna scale and color doppler imaging was performed of the thyroid gland. COMPARISON: None. FINDINGS: RIGHT THYROID LOBE: 5.3 x 1.7 x 1.2 cm. Homogeneous echotexture with normal vascularity. [There is a 0.7 x 0.5 x 0.4 cm mildly hypoechoic nodule in the lower pole which is wider than it is tall. Normal vascularity on Doppler imaging. LEFT THYROID LOBE: 5.2 x 1.8 x 0.9. Homogeneous echotexture with normal vascularity. [There are multiple nodules. In the mid thyroid there is a 0.5 x 0.5 x 0.2 cm hypoechoic nodule. There is an adjacent 0.5 x 0.5 x 0.2 cm hypoechoic nodule in the mid thyroid is 0.7 x 0.4 x 0.3 cm hypoechoic anechoic nodule. Normal vascularity and Doppler imaging. ISTHMUS: 0.2 cm. No thyroid nodules are present. US/Thyroid IMPRESSION: Multiple bilateral thyroid nodules. All are considered moderately suspicious, TR 4, by TI-RADS categorization. No FNA or follow-up is required due to their small size. Electronically Signed: Ken Carney DO at 22:34 EDT Reading Location ID and State: [address] [place] [address] Tel [phone], Service support ,
== END | disposition home or self-care (01) ==
PROVIDERS: PCP Family Medicine; Referring Provider Obstetrics & Gynecology; Visit Provider Obstetrics & Gynecology
DX: Z01.419 Encounter for gynecological examination (general) (routine) without abnormal findings (principal); E04.2 Nontoxic multinodular goiter
CPT/HCPCS: 76536

== ENCOUNTER 2022-06-16 23:02 | Emergency (ER) | payer OTHER, SELFPAY ==
[2022-06-16 23:03] VITALS: BP 125/78; PULSE 95; RESP 16; TEMP 36.7; O2SAT 95; BMI 28.3
[2022-06-16 23:17] VITALS: O2SAT 97
--- NOTE | 2022-06-16 23:46 | EX.ED.VIS.UR ---
HPI HPI - URI History of Present Illness Chief Complaint: Cough Informant: patient Onset/Context/Timing Onset: Days Context: Gradual Onset Timing: Continuous Current Severity: Mild Maximum Severity: Mild Associated Symptoms Associated Symptoms: Positive for Nasal Congestion and Productive Cough; Negative for Nausea, Vomiting, Chest Pain or Hemoptysis Narrative Narrative: 32-year-old female no seen in past medical history. States she had a cough for 10 days worsening the last 3 days. Productive of clear to white phlegm. Was treated recently by her primary care physician's office with a Zithromax Z-LIV she still has 2 days left to take the antibiotic. States she is a decreasing sleep. Denies any chest pain. No hemoptysis. Non-smoker. No history of DVT or PE. Denies any fever or chills. Kids at home had similar but less severe symptoms. States she has taken 6 home COVID test all of which have been negative. Prior similar symptoms: No Recent Illness/Hospitalization: No ROS ROS ED ROS Narrative Cough. Phlegm. Review of Systems ROS Unobtainable: Denies due to encephalopathy Constitutional Constitutional ED: Denies chills or fever(s) Eyes Eyes: Denies blurry vision ENT ENT ED: Reports rhinorrhea; Denies ear pain or sore throat Cardiovascular Cardiovascular: Denies chest pain or palpitations Respiratory/Chest Respiratory/Chest: Reports cough; Denies dyspnea Gastrointestinal Gastrointestinal: Denies abdominal pain, constipation, diarrhea, melena, nausea or vomiting Genitourinary Genitourinary ED: Denies dysuria or hematuria Musculoskeletal Musculoskeletal: Denies arthralgias Integumentary Denies abscess Neurologic Neurologic: Denies headache(s) Psychiatric Psychiatric: Denies anxiety Endocrine Endocrinology: Denies cold intolerance Hematologic/Lymphatic Hematologic/Lymphatic: Denies easy bleeding Allergic/Immunologic Allergic/Immunologic ED: Denies mouth swelling or tongue swelling [facility] Medical History (Updated 06/17/22 @ 00:[address] Alejandro Gonzalez MD) Anxiety and depression Dizziness Genital herpes GERD (gastroesophageal reflux disease) Hemorrhoid Shortness of breath Home Medications NK 05/17/22 [History Last Taken Unknown] Allergy/AdvReac Type Severity Reaction Status Date / Time amoxicillin Allergy Hives Verified 06/16/22 23:05 naproxen [From Aleve] Allergy Hives Verified 06/16/22 23:05 sulfamethoxazole Allergy Hives Verified 06/16/22 23:05 [From Bactrim] trimethoprim [From Bactrim] Allergy Hives Verified 06/16/22 23:05 Family History Grandfather Diabetes Heart disease Grandfather Cancer ovarian Surgical History H/O eye surgery Social History adopted: No household members: family number of children: 2 current occupational status: employed current occupation: [employer] sexually active: Yes Smoking Status: Never smoker alcohol intake: never substance use type: does not use caffeine: No what type of physical activity do you participate in: none seatbelt use: always do you feel safe at home: Yes additional social history: Finesse Sloan works at [employer] EXAM Physical Exam Narrative Exam Narrative: Well-appearing 32-year-old female. Vital signs stable afebrile. Pulse ox 95% on room air no hypoxia. No distress. Clinically does not look ill, toxic nor septic. Does not look dehydrated. H EENT exam unremarkable. Posterior pharynx moist and pink. No erythema or exudate. TMs normal. Neck nontender. No JVD. No lymphadenopathy. No meningismus. Lungs clear to auscultation bilaterally. No rales, rhonchi or wheezing. Heart regular rhythm rate about 95 no murmur. Chest wall nontender. Abdomen soft nontender. Moving all 4 extremities. Calves are nontender without edema or cords. Neurologic exam normal. Back exam normal. Const Vital Signs: 06/16/22 23:03 06/16/22 23:17 Temperature 98.1 F Temperature Source Temporal Pulse Rate 95 Respiratory Rate 16 Respiratory Effort Normal Blood Pressure 125/78 H Blood Pressure Mean 93 Pulse Ox 95 Oxygen Delivery Method Room Air Room Air Positive well nourished and well developed; Negative for obese, cachectic or contractures General Appearance ED: well developed and NAD; Negative for cachectic, contractures, cyanotic, diaphoretic or pallor Nutritional Appearance: Negative for cachectic or obese HEENT Reports moist mucous membranes; Denies dry mucous membranes normocephalic and atraumatic; Negative for scalp tenderness Face and Sinus: Negative for sinus tenderness Mouth ED: No dry mucous membranes Mouth: No dry mucous membranes Teeth and Gingiva: Negative for caries Throat: posterior oropharynx normal; Negative for tonsils abnormal or posterior oropharynx abnormal Eyes PERRL and EOMs intact bilaterally General Eye ED: Negative for pale conjunctiva or scleral icterus Neck no lymphadenopathy, supple, no meningeal signs and no JVD General: Negative for anterior neck swelling or lymphadenopathy Resp normal respiratory effort and clear to auscultation bilaterally Effort and Inspection: Negative for retractions Auscultation: Negative for rales, rhonchi or wheezes Cardio S1 normal heart sound, S2 normal heart sound and no murmurs Rate: regular rate; Negative for bradycardia Rhythm: regular rhythm GI non-tender, non-distended and no masses Inspection: Negative for abdominal distention Auscultation: normoactive bowel sounds Palpation: soft; Negative for tender or guarding Back/Spine no CVA tenderness and normal ROM General Back: Negative for CVA tenderness Cervical Spine: Negative for cervical spine tenderness Thoracic Spine / Upper Back: Negative for thoracic spinal tenderness Lumbar Spine / Lower Back: Negative for lumbar spinal tenderness Extremity normal to inspection and full ROM General Extremety ED: Negative for cyanosis, tenderness or other findings General Extremity: Negative for cyanosis or other findings Neuro oriented x3 and CN's II-XII intact bilaterally Sensorium / Orientation: alert, oriented to person, oriented to place and oriented to time; Negative for orientation impaired, lethargic, stuporous or other Sensory Exam: No sensory level loss detected Motor Exam: strength 5/5 throughout Psych mental status grossly normal Appearance: Negative for other Attitude: No agitated Mood & Affect: Negative for depressed, anxious or tearful Skin General Skin Exam: Negative for jaundice or pallor Lesions: no lesions Rashes: no rashes Trauma: Negative for abrasion or laceration MDM MDM MDM Narrative Medical decision making narrative: 32-year-old suspect viral syndrome. Per her request chest x-ray being obtained. Her exam is completely benign. Lab Data Attestation: I reviewed the patient's lab results. Radiography Diagnostic Testing: Chest x-ray, portable, single view interpreted by myself shows no acute abnormality. No infiltrate. No pneumonia. Normal cardiac silhouette and lung brooks. Discharge Plan Triage Chief Complaint: Cough ED Provider: Alejandro Gonzalez Dx/Rx/DC Orders Clinical Impression: Viral syndrome, Bronchitis Instructions: ED Bronchitis, No Antibiotic (Adult), ED Viral Syndrome (Adult) Prescriptions: No Action NK Primary Care Provider: Morris Bosch Referrals: Morris Bosch MD [Primary Care Provider] - 1 Week if not improving Activity Restrictions/Additional Instructions: Plenty of fluids and rest. [id number] cough syrup. Follow-up with your doctor if not improving. Your exam and chest x-ray are normal. Disposition Disposition: Home, Self Care
--- NOTE | 2022-06-16 23:51 | RAD_ITS ---
INDICATION: cough EXAMINATION/TECHNIQUE: X-RAY - XR Chest 1 View COMPARISON: 01/05/2013 FINDINGS: LIFE-SUPPORT AND LINES: 1. None HEART AND VESSELS: The cardiac silhouette, pulmonary vasculature have normal appearance. No evidence of congestive failure. LUNGS AND PLEURAL SPACES: Subtle asymmetric prominence at the RIGHT lung base is suspicious of a subtle atypical interstitial infiltrate. No consolidation, no effusion. Remaining lung zones are clear. No pulmonary mass is noted. MEDIASTINUM AND HILAR REGIONS: No masses adenopathy noted. No areas of calcification. Visualized upper airway is normal in position. BONY ELEMENTS: No acute bony changes noted. RAD/Chest 1 View (Portable) IMPRESSION: 1. Subtle asymmetric interstitial prominence at the RIGHT lung base suspicious of atypical interstitial infiltrate. 2. No consolidation, congestive failure, or effusion. Electronically Signed: Helder Benson MD at 0:23 EST ,
[2022-06-17 00:20] VITALS: BP 130/74; PULSE 78; O2SAT 100
== END 2022-06-17 00:21 | disposition home or self-care (01) ==
PROVIDERS: Emergency Provider Emergency Medicine; PCP Family Medicine; Visit Provider Emergency Medicine
DX: J40 Bronchitis, not specified as acute or chronic (principal); B34.9 Viral infection, unspecified
CPT/HCPCS: 71045; 99282

== ENCOUNTER → 2022-07-03 | Outpatient (CLI) | payer OTHER, SELFPAY ==
--- NOTE | 2022-07-03 14:00 | RAD_ITS ---
STUDY: X-RAY CHEST REASON FOR EXAM: Female, 32 years old. Cough. TECHNIQUE: Frontal and lateral views of the chest. COMPARISON: June 16, 2022. FINDINGS: The lungs are clear and expanded. There is no demonstrated pleural abnormality. Normal size heart. Normal mediastinum and richy. Normal visualized pulmonary arteries. Normal visualized aortic arch and descending thoracic aorta. Normal visualized thoracic spine. Normal visualized ribs, clavicles, and shoulders. There is no demonstrated abnormality of the visualized soft tissue structures of the upper abdomen. RAD/Chest PA and Lateral IMPRESSION: No interval change. Normal chest. Electronically Signed: Randall Leon, at 14:56 EST ,
[2022-07-03 17:50] LABS: Erythrocyte Sedimentation Rate 19 mm/hr (0-30)
[2022-07-03 17:52] LABS: Absolute Lymphocyte Count 1.89 X10^3/uL (0.83-4.51); Basophil# 0.03 X10^3/uL; Basophil% 0.3 % (0-1); Eosinophil# 0.06 X10^3/uL; Eosinophils% 0.6 % (0-5); Hematocrit 42.5 % (37-47); Hemoglobin 14.1 g/dL (12.0-15.0); Lymphocyte # 1.89 X10^3/ul (0.83-4.51); Lymphocyte % 17.8 % (19-41); Mean Corp Hgb Conc 33.2 g/dL (32-36); Mean Corpuscular Hgb 30.4 pg (27.0-32.0); Mean Corpuscular Volume 91.6 fL (81-99); Mean Platelet Vol. 10.3 fl (6.2-12.0); Monocyte# 0.57 X10^3/uL; Monocyte% 5.4 % (0-10); NRBC Flagged by Analyzer 0 % (0-5); Neutrophil % 75.4 % (47-70); Platelet Count 231 K/mm3 (150-450); RBC Distribution Width SD 39.7 fl (35.1-43.9); Red Blood Count 4.64 M/mm3 (4.2-5.4); White Blood Count 10.6 K/mm3 (4.4-11.0)
[2022-07-03 18:02] LABS: Vitamin B12 571 pg/mL (211-911)
[2022-07-03 18:14] LABS: AST(SGOT) 13 U/L (15-37); Alanine Aminotransfer ALT/SGPT 27 U/L (13-56); Albumin, Serum 3.9 g/dL (3.2-5.0); Alkaline Phosphatase 101 U/L (45-117); Anion Gap 7 (5-15); BUN 10 mg/dL (7-18); Calcium,Total 8.7 mg/dL (8.5-10.1); Chloride 104 mmol/L (98-107); Creatinine, Serum 0.71 mg/dL (0.55-1.02); EST Glomerular Filtration Rate 102 mL/min (>60); Est Glom Filt Rate - Afr Amer 123 mL/min (>60); Globulin 3.8 g/dL (2.2-4.2); Glucose 99 mg/dL (74-106); Iron 21 ug/dL (50-170); Potassium 3.7 mmol/L (3.5-5.1); Protein, Total 7.7 g/dL (6.4-8.2); Rheumatoid Factor < 10.0 IU/mL (<15); Sodium Level 138 mmol/L (136-145); Thyroid Stim Hormone (TSH) 0.56 uIU/mL (0.358-3.74)
[2022-07-05 21:02] LABS: ANTINUCLEAR ANTIBODIES DIRECT Positive (Negative)
== END | disposition home or self-care (01) ==
LOC: MTLAB 13:56
PROVIDERS: PCP Family Medicine; Referring Provider Family Medicine; Visit Provider Family Medicine
DX: R76.8 Other specified abnormal immunological findings in serum (principal); R05.9 Cough, unspecified
CPT/HCPCS: 36415; 71046; 80053; 82306; 82607; 83540; 84443; 85025; 85652; 86038; 86140; 86431

== ENCOUNTER 2022-07-06 15:43 | Emergency (ER) | payer OTHER, SELFPAY ==
[2022-07-06 15:44] VITALS: BP 122/80; PULSE 92; RESP 18; TEMP 37.2; O2SAT 99; BMI 28.3
--- NOTE | 2022-07-06 17:25 | MRI_ITS ---
INDICATION: Continuous vertigo, tremor left long finger, visual changes EXAMINATION: MRI - MR Brain WO/W Contrast TECHNIQUE: Multiplanar and multisequence MR images of the brain were obtained without and with gadolinium. IV Contrast Dosage and Agent: None. COMPARISON: 08/11/2015 FINDINGS: BRAIN PARENCHYMA: No MRI evidence of hemorrhage. No evidence of acute infarct. No intracranial mass or mass effect. There is preservation of the mendoza/white matter interface. Normal sella turcica, pituitary gland, infundibular stalk, optic chiasm and hypothalamus. Posterior fossa structures are unremarkable. INTERNAL AUDITORY CANALS: The internal auditory canals are well visualized and patent. No mass identified. CSF SPACES: Appropriate for age. No hydrocephalus. Basal cisterns are patent. VASCULAR SYSTEM: Normal flow voids in the major intracranial circulation. CALVARIUM, SKULL BASE, PARANASAL SINUSES AND MASTOID AIR CELLS: Chronic left mastoid effusion. ORBITS: Both globes, extraocular muscles, optic nerves and retrobulbar fat appear unremarkable. MRI/Brain W/WO Contrast IMPRESSION: Chronic left mastoid effusion. No other finding to explain vertigo, tremor, or visual changes. Negative MRI Brain. Electronically Signed: Adrian Orellana MD at 19:46 EST ,
[2022-07-06] MEDS: LORazepam 2 MG/ML Syringe 0.5 MG IV (17:40)
--- NOTE | 2022-07-06 17:42 | EDS_ITS ---
HPI History of Present Illness Chief Complaint: Dizziness Detail of Chief Complaint: Dizziness, balance soft, blurred vision and see HPI narrative Informant: patient Onset/Context/Timing Onset: Weeks (1 to 2 weeks) Context: Sudden Onset Timing: Continuous and Waxes and wanes Quality: Balance off Location: Not applicable Current Severity: Mild Maximum Severity: Moderate Worsened by: Nothing Relieved by: Nothing Associated Symptoms Associated Symptoms: Bilateral blurred vision, twitching right long finger Narrative Narrative: Patient is a 32-year-old woman who was diagnosed with bronchitis 3 weeks ago. She states her symptoms resolved. Over the past 1 to 2 weeks has had trouble with balance, concentrating, rhythmic movement of her left long finger and bilateral blurred vision. She denies diplopia. She denies loss of vision partial or complete. She states she has had trouble with fluency of her words. She does admit she is under stress. She denies ringing or ears decreased hearing. She denies cardiac or respiratory symptoms. She does report nausea without vomiting diarrhea. She denies abdominal pain. She denies history of tr auma. She denies skin lesions. Prior similar symptoms: No Recent Illness/Hospitalization: Yes [facility] Medical History (Updated 07/06/22 @ 20:[address] Gianfranco Mann MD) Anxiety and depression Dizziness Genital herpes GERD (gastroesophageal reflux disease) Hemorrhoid Shortness of breath Home Medications NK 05/17/22 [History Last Taken Unknown] Allergy/AdvReac Type Severity Reaction Status Date / Time amoxicillin Allergy Hives Verified 07/06/22 15:44 naproxen [From Aleve] Allergy Hives Verified 07/06/22 15:44 sulfamethoxazole Allergy Hives Verified 07/06/22 15:44 [From Bactrim] trimethoprim [From Bactrim] Allergy Hives Verified 07/06/22 15:44 Family History Grandfather Diabetes Heart disease Grandfather Cancer ovarian Surgical History H/O eye surgery Social History adopted: No household members: family number of children: 2 current occupational status: employed current occupation: [employer] sexually active: Yes Smoking Status: Never smoker alcohol intake: never substance use type: does not use caffeine: No what type of physical activity do you participate in: none seatbelt use: always do you feel safe at home: Yes additional social history: Finesse Sloan works at [employer] ROS ED Constitutional Constitutional ED: Denies chills, fever(s), subjective, sweats or weight loss Eyes Eyes: Reports blurry vision bilateral; Denies change in vision or diplopia ENT ENT ED: Denies ear pain, rhinorrhea or sore throat Cardiovascular Cardiovascular: Denies chest pain, orthopnea, palpitations, paroxysmal nocturnal dyspnea or racing heartbeat Respiratory/Chest Respiratory/Chest: Denies cough, dyspnea, dyspnea on exertion, orthopnea, paroxysmal nocturnal dyspnea or sputum Gastrointestinal Gastrointestinal: Reports nausea; Denies abdominal pain, constipation, diarrhea, melena or vomiting Genitourinary Genitourinary ED: Denies dysuria, hematuria or urinary frequency Musculoskeletal Musculoskeletal: Denies arthralgias, back pain, myalgias or neck pain Integumentary Denies abscess, Abrasions or rash Neurologic Neurologic: Denies headache(s), paresthesias or weakness Psychiatric Psychiatric: Reports anxiety; Denies depression, suicidal ideation or suicidal thoughts Endocrine Endocrinology: Denies cold intolerance, heat intolerance or polydipsia Hematologic/Lymphatic Hematologic/Lymphatic: Reports as per HPI; Denies systems reviewed and no addt'l complaints, except as documented EXAM Physical Exam Const Vital Signs: 07/06/22 15:44 07/06/22 16:37 Temperature 98.9 F Temperature Source Temporal Pulse Rate 92 Respiratory Rate 18 Respiratory Effort Normal Non-Labored Respiratory Pattern Normal Blood Pressure 122/80 H Blood Pressure Mean 94 Pulse Ox 99 Oxygen Delivery Method Room Air Positive well nourished and well developed General Appearance ED: well developed and NAD; Negative for cyanotic, diaphoretic or pallor HEENT HEENT Narrative: Head is atraumatic normocephalic. Ears normal. TMs normal. Nares patent. Uvula midline. No deviation of tongue with protrusion. No erythema or exudate the posterior pharynx. Eyes PERRL and EOMs intact bilaterally Eyes Narrative: There is no APD. Cup-to-disc ratio is normal. There is no papilledema. General Eye ED: Negative for pale conjunctiva or scleral icterus Neck no lymphadenopathy, supple and no JVD Resp normal respiratory effort and clear to auscultation bilaterally Cardio regular rate, regular rhythm, S1 normal heart sound, S2 normal heart sound and no murmurs GI normal to inspection, nondistended, normoactive bowel sounds, non-tender and non-distended; Negative for hepatosplenomegaly or no masses Back/Spine no CVA tenderness Cervical Spine: Negative for cervical spine tenderness Thoracic Spine / Upper Back: Negative for thoracic spinal tenderness Lumbar Spine / Lower Back: Negative for lumbar spinal tenderness Extremity normal to inspection General Extremety ED: Negative for edema or tenderness General Extremity: Negative for edema Neuro oriented x3, CN's II-XII intact bilaterally and no sensory deficits noted Neuro Narrative: There is noted metria. Romberg with eyes open and close negative. Brendon- Hallpike, eye askew test and hint test are negative. Sensorium / Orientation: alert Motor Exam: strength 5/5 throughout Psych mental status grossly normal Mood & Affect: Negative for depressed or anxious Skin no rashes or lesions noted, no wounds and skin turgor normal General Skin Exam: Negative for jaundice or pallor MDM MDM MDM Narrative Medical decision making narrative: With ocular and vestibular symptoms for greater than 1 week and twitching of her long finger need to evaluate for MS. This may also represent problems with circulation the cerebellum and occiput. This is less likely. This also may represent anxiety reaction/conversion reaction. Blood work was not obtained since she recently had blood work i.e. Saturday and all of her tests were negative. She does have mild claustrophobia. She was premedicated with Ativan. Patient's MRI is normal. In light of history of anxiety this may represent a conversion reaction. Will discharge to home. Radiography Diagnostic Testing: Clinical Impression(s) from Imaging Studies Brain MRI 07/06/22 17:25 IMPRESSION: Chronic left mastoid effusion. No other finding to explain vertigo, tremor, or visual changes. Negative MRI Brain. Electronically Signed: Adrian Orellana MD at 19:46 EST , Discharge Plan Triage Chief Complaint: Dizziness ED Provider: Gianfranco Mann Dx/Rx/DC Orders Clinical Impression: Conversion reaction, Vertigo, Hx of anxiety disorder Instructions: ED Conversion Reaction Prescriptions: No Action NK Primary Care Provider: Morris Bosch Referrals: Morris Bosch MD [Primary Care Provider] - 3-5 Days Disposition Disposition: Home, Self Care
[2022-07-06 20:31] VITALS: BP 115/76; PULSE 85; RESP 18; O2SAT 100
== END 2022-07-06 20:38 | disposition home or self-care (01) ==
PROVIDERS: Emergency Provider Emergency Medicine; PCP Family Medicine; Visit Provider Emergency Medicine
DX: R42 Dizziness and giddiness (principal); F41.9 Anxiety disorder, unspecified; H53.8 Other visual disturbances; F44.9 Dissociative and conversion disorder, unspecified
CPT/HCPCS: 70553; 99283; A9575; A4216

== ENCOUNTER → 2023-04-26 | Outpatient (CLI) | payer OTHER, SELFPAY ==
[2023-04-26 14:01] LABS: hCG Titer Quant., Serum < 1 mIU/mL (1-3)
== END | disposition home or self-care (01) ==
LOC: LAB 12:47
PROVIDERS: PCP Family Medicine; Visit Provider Obstetrics & Gynecology
DX: N91.2 Amenorrhea, unspecified (principal)
CPT/HCPCS: 36415; 84702

== ENCOUNTER → 2024-02-10 | Outpatient (CLI) | payer OTHER, SELFPAY ==
[2024-02-18 11:59] LABS: HPV APTIMA, High Risk Negative (Negative)
== END | disposition home or self-care (01) ==
PROVIDERS: PCP Family Medicine; Referring Provider Nurse Practitioner Women's Health; Visit Provider Nurse Practitioner Women's Health
DX: Z12.4 Encounter for screening for malignant neoplasm of cervix (principal)
CPT/HCPCS: 87624; 88175; G0145

== ENCOUNTER → 2024-07-03 | Outpatient (CLI) | payer OTHER, SELFPAY ==
[2024-07-06 20:07] LABS: Chlamydia By Nucleic Acid AMP Negative (Negative); Gonococcus By Nucleic Acid AMP Negative (Negative)
== END | disposition home or self-care (01) ==
PROVIDERS: PCP Family Medicine; Referring Provider Obstetrics & Gynecology; Visit Provider Obstetrics & Gynecology
DX: Z34.90 Encounter for supervision of normal pregnancy, unspecified, unspecified trimester (principal)
CPT/HCPCS: 87077; 87086; 87088; 87186; 87491; 87591

== ENCOUNTER → 2024-07-20 | Outpatient (CLI) | payer OTHER, SELFPAY ==
--- NOTE | 2024-07-20 16:13 | US_ITS ---
INDICATION: thyromegaly EXAMINATION: Ultrasound US Thyroid (eg thyroid, parathyroid, parotid) TECHNIQUE: Luna scale and color doppler imaging was performed of the thyroid gland. COMPARISON: 05/07/2022 FINDINGS: RIGHT THYROID LOBE: 5.7 x 1.9 x 1.6 cm. Homogeneous echotexture with normal vascularity. [There is a solid 9 x 7 x 5 mm nodule on the RIGHT no abnormal blood flow or calcification. Findings consistent with a stable TI-RADS 3 lesion.. LEFT THYROID LOBE: 5.6 x 1.4 x 1.5 cm. Homogeneous echotexture with normal vascularity. [2 nodules are present on the LEFT. There is a 5 x 4 x 3 mm hypoechoic solid nodule which is stable, consistent with TI-RADS 3 lesion. Additional 5 x 4 x 2 mm hypoechoic nodule without change also consistent with a TI-RADS 3 lesion. No abnormal blood flow. ISTHMUS: 2.4 mm. No thyroid nodules are present. US/Thyroid IMPRESSION: 1. Stable exam. 2. Multiple bilateral nodules consistent with stable TI-RADS 3 lesion. No required biopsy or follow-up. 3. TI-RADS 3: Mildly Suspicious: FNA if ? 2.5 cm; Follow if ? 1.5 cm at 1, 3, and 5 y Findings Reference Guidance And Recommendations: Thyroid nodules: Reference: Tessler. MASON et al., ACR Thyroid Imaging, Reporting and Data System (TI-RADS): White Paper of the ACR TI-RADS Committee. 2017. ACR. http://dx.doi.org/10.1016/j.jacr.2017.01.046 TI RADS 1: Benign: No FNA TI-RADS 2: Not suspicious: No FNA TI-RADS 3: Mildly suspicious: FNA ? 2.5 cm, follow ? 1.5 cm TI-RADS 4: Moderately suspicious: FNA if ? 1.5 cm, follow if ? 1 cm TI-RADS 5: Highly suspicious: FNA if ? 1 cm, follow if ? 0.5 cm Electronically Signed: Helder Benson MD at 1:08 EST ,
== END | disposition home or self-care (01) ==
LOC: US 16:02
PROVIDERS: PCP Family Medicine; Referring Provider Obstetrics & Gynecology; Visit Provider Obstetrics & Gynecology
DX: E01.0 Iodine-deficiency related diffuse (endemic) goiter (principal)

== ENCOUNTER → 2024-11-06 | Outpatient (CLI) | payer OTHER, SELFPAY ==
[2024-11-09 21:07] LABS: Chlamydia By Nucleic Acid AMP Negative (Negative); Gonococcus By Nucleic Acid AMP Negative (Negative)
== END | disposition home or self-care (01) ==
PROVIDERS: PCP Family Medicine; Visit Provider Obstetrics & Gynecology
DX: O09.90 Supervision of high risk pregnancy, unspecified, unspecified trimester (principal); Z3A.00 Weeks of gestation of pregnancy not specified
CPT/HCPCS: 87086; 87088; 87491; 87591

== ENCOUNTER → 2024-11-16 | Outpatient (CLI) | payer OTHER, SELFPAY ==
[2024-11-16 16:23] LABS: Absolute Lymphocyte Count 2.57 X10^3/uL (0.83-4.51); Absolute Neutrophil Count 6.4 X10^3/uL (2.0-7.7); Basophil# 0.02 X10^3/uL; Basophil% 0.2 % (0-1); Eosinophil# 0.06 X10^3/uL; Eosinophils% 0.6 % (0-5); Hematocrit 39.2 % (37-47); Hemoglobin 13.1 g/dL (12.0-15.0); Lymphocyte # 2.57 X10^3/ul (0.83-4.51); Lymphocyte % 26.5 % (19-41); Mean Corp Hgb Conc 33.4 g/dL (32-36); Mean Corpuscular Volume 86.7 fL (81-99); Mean Platelet Vol. 9.6 fl (6.2-12.0); Monocyte# 0.63 X10^3/uL; Monocyte% 6.5 % (0-10); NRBC Flagged by Analyzer 0 % (0-5); Neutrophil # 6.38 X10^3/uL (2.7-7.7); Neutrophil % 65.8 % (47-70); Platelet Count 239 K/mm3 (150-450); RBC Distribution Width CV 12.2 % (11.6-14.6); RBC Distribution Width SD 38.4 fl (35.1-43.9); Red Blood Count 4.52 M/mm3 (4.2-5.4); White Blood Count 9.7 K/mm3 (4.4-11.0)
[2024-11-16 17:05] LABS: HIV Nonreactive (Nonreactive); Hepatitis C Antibody Nonreactive (Nonreactive); Rubella IgG REAC (Nonreactive); Syphilis Antibodies Nonreactive (Nonreactive)
[2024-11-18 19:21] LABS: Hepatitis B Surface Antigen Nonreactive (Nonreactive)
== END | disposition home or self-care (01) ==
PROVIDERS: PCP Family Medicine; Referring Provider Obstetrics & Gynecology; Visit Provider Obstetrics & Gynecology
DX: Z34.81 Encounter for supervision of other normal pregnancy, first trimester (principal); Z3A.00 Weeks of gestation of pregnancy not specified
CPT/HCPCS: 36415; 85025; 86703; 86762; 86780; 86803; 86850; 86900; 86901; 87340

== ENCOUNTER → 2024-12-03 | Outpatient (CLI) | payer OTHER, SELFPAY | END | disposition home or self-care (01) | LOC: LABSPEC 14:50 | PROVIDERS: PCP Family Medicine; Referring Provider Obstetrics & Gynecology; Visit Provider Obstetrics & Gynecology | DX: R30.0 Dysuria (principal) | CPT/HCPCS: 87077; 87086; 87088; 87186 ==

== ENCOUNTER → 2025-01-29 | Outpatient (CLI) | payer OTHER, SELFPAY ==
[2025-01-29 11:48] LABS: Barbiturate Urine NEGATIVE (< 200 ng/mL); Benzodiazepine Urine NEGATIVE (< 200 ng/mL); PCP Urine NEGATIVE (< 25 ng/mL); THC Urine NEGATIVE (< 50 ng/mL)
== END | disposition home or self-care (01) ==
LOC: LABSPEC 11:13 → LAB 11:14
PROVIDERS: PCP Family Medicine; Visit Provider Obstetrics & Gynecology
DX: O09.90 Supervision of high risk pregnancy, unspecified, unspecified trimester (principal); Z3A.00 Weeks of gestation of pregnancy not specified
CPT/HCPCS: 80307

== ENCOUNTER → 2025-03-23 | Outpatient (CLI) | payer OTHER, SELFPAY ==
[2025-03-23 11:33] LABS: Hematocrit 33.7 % (37-47); Hemoglobin 11.3 g/dL (12.0-15.0); Immature Granulocytes Count 0.120 X10^3/uL (0.0-0.0); Mean Corp Hgb Conc 33.5 g/dL (32-36); Mean Corpuscular Volume 87.5 fL (81-99); Mean Platelet Vol. 9.5 fl (6.2-12.0); NRBC Flagged by Analyzer 0 % (0-5); Platelet Count 179 K/mm3 (150-450); RBC Distribution Width CV 12.5 % (11.6-14.6); RBC Distribution Width SD 39.6 fl (35.1-43.9); Red Blood Count 3.85 M/mm3 (4.2-5.4); White Blood Count 7.0 K/mm3 (4.4-11.0)
[2025-03-23 12:08] LABS: Glucose Challenge Gest 1H 50g 141 mg/dL (70-140); HIV Nonreactive (Nonreactive); Syphilis Antibodies Nonreactive (Nonreactive)
== END | disposition home or self-care (01) ==
PROVIDERS: PCP Family Medicine; Referring Provider Obstetrics & Gynecology; Visit Provider Obstetrics & Gynecology
DX: O09.90 Supervision of high risk pregnancy, unspecified, unspecified trimester (principal); Z13.1 Encounter for screening for diabetes mellitus; Z3A.00 Weeks of gestation of pregnancy not specified
CPT/HCPCS: 36415; 82950; 85025; 86703; 86780

== ENCOUNTER → 2025-03-26 | Outpatient (CLI) | payer OTHER, SELFPAY ==
[2025-03-26 10:37] LABS: Glucose GTT-Gestation. Fasting 82 mg/dL (<105)
[2025-03-26 13:58] LABS: Glucose GTT-Gestational 1 Hr 174 mg/dL (<190)
[2025-03-26 14:52] LABS: Glucose GTT-Gestational 3 Hr 91 L (<145)
[2025-03-26 14:54] LABS: Glucose GTT-Gestational 2 Hr 143 mg/dL (<165)
== END | disposition home or self-care (01) ==
LOC: LAB 09:59
PROVIDERS: PCP Family Medicine; Referring Provider Nurse Practitioner Women's Health; Visit Provider Nurse Practitioner Women's Health
DX: Z13.1 Encounter for screening for diabetes mellitus (principal)
CPT/HCPCS: 36415; 82951; 82952

== ENCOUNTER 2025-04-05 09:32 | Outpatient (CLI) | payer OTHER, SELFPAY ==
--- OUTSIDE RECORDS SUMMARY | 2025-02-15 14:26 | XMS RPT_ITS ---
Author Name Auto Generated Organization [facility] Care Team Providers Care Creative Recruiter Name Role Phone NO PRIMARY CARE, Primary Care Unavailable VITO VILLAR Referring UnavailMARTIN Villalpando Attending Unavailable NO PRIMARY CARE, Primary Care Unavailable VITO VILLAR Referring UnavailJER Hall Attending Unavailable PROBLEMS No Problem Records Found PROCEDURES No Procedure Records Found RESULTS No Result Records Found ALLERGIES No Allergies Records Found ENCOUNTERS ADMIT/DISCHARGE ACCOUNT NUMBER ADMITTING ENCOUNTER CLASS LOCATION SOURCE 02/15/2025/02/15/2025 [id number] Ambulatory Gómez lding:[facility] 01/25/2025/01/25/2025 [id number] Ambulatory Gómez lding:[facility] PAYERS ENCOUNTER GUARANTOR PAYER SUBSCRIBER SOURCE 02/15/2025 [facility]: [id number] [place] [address]Ujs: () Primary Insurance[facility] [employer] Number: [id number] Date: [facility] [id number] [place] [address] [facility] 01/25/2025 [facility]: [id number] [place], [place] [address]Sfi: () Primary Insurance:[facility] Number: [id number] Date: [facility] ALMAOB: [id number] [place] [address] [facility]
[2025-04-05 09:49] VITALS: RESP 16; TEMP 36.8
[2025-04-05 09:52] VITALS: BP 114/71; PULSE 89
[2025-04-05 09:57] VITALS: BP 112/67; PULSE 90
[2025-04-05 10:07] VITALS: BMI 37.5
[2025-04-05 10:12] VITALS: BP 110/66; PULSE 87
--- NOTE | 2025-04-05 10:46 | OB.TRI.PN_ITS ---
Progress Notes Progress Note: Patient presents for triage evaluation secondary to shortness of breath and blurred vision. FHT: 135 Moderate variability reactive no decelerations category I tracing Tat Momoli: irregular mild Contractions Assessment and plan: pre e labs and normal BP, Reactive NST, reassuring maternal and status patient to ER for evaluation of shortness of breath. See problem list details for additional plan information. Charges/Coding Multi Select Codes Urinary/Genital Urinary/Genital CPT Codes: 77402-55 non-stress test Interp Assessment & Plan (1) Blurred vision: COMMENT: normal BP and pre e labs. PLAN: ER for evaluation of SOB (2) Anxiety and depression: COMMENT: see counselor; leticiaoft (3) GBS (group B streptococcus) UTI complicating : QUALIFIERS: Trimester: third trimester Qualified Code(s): O23.43 - Unspecified infection of urinary tract in , third trimester; B95.1 - Streptococcus, group B, as the cause of diseases classified elsewhere COMMENT: PCN in labor (4) : QUALIFIERS: Weeks of gestation: 28 weeks Qualified Code(s): Z3A.28 - 28 weeks gestation of COMMENT: LR NIPT. declined carrier, normal anatomy (5) Supervision of high-risk : QUALIFIERS: Trimester: third trimester Qualified Code(s): O09.93 - Supervision of high risk , unspecified, third trimester COMMENT: PRR , TIFFANY 06/14/25, girl Teresa Tevin Boyce Ruby, Partner Chintan (6) History of marijuana use: COMMENT: Gummies last used 05/31, discussed random tox screens during (7) Hx of depression, currently : (8) FH: cleft lip and palate: COMMENT: Brother
[2025-04-05 11:15] LABS: Hematocrit 35.0 % (37-47); Hemoglobin 11.5 g/dL (12.0-15.0); Mean Corp Hgb Conc 32.9 g/dL (32-36); Mean Corpuscular Volume 88.8 fL (81-99); Mean Platelet Vol. 8.8 fl (6.2-12.0); Platelet Count 166 K/mm3 (150-450); RBC Distribution Width CV 12.5 % (11.6-14.6); RBC Distribution Width SD 40.8 fl (35.1-43.9); Red Blood Count 3.94 M/mm3 (4.2-5.4); White Blood Count 8.4 K/mm3 (4.4-11.0)
[2025-04-05 11:34] LABS: Creatinine, Urine (random) 38.60 mg/dL (28.00-217.00); Protein, Urine (Random) 9.3 mg/dL (0.0-12.0); Protein:Creat Ratio 242 mg/g CRE (0-200)
[2025-04-05 11:36] LABS: AST(SGOT) 20 U/L (<=31); Alanine Aminotransfer ALT/SGPT 13 U/L (<=34); Estimated Creatinine Clearance 172.72 ml/min (50-250); Uric Acid 4.5 mg/dL (2.6-6.0)
== END 2025-04-05 11:15 | disposition home or self-care (01) ==
LOC: WPOUT 09:37 → WP 09:38
PROVIDERS: PCP Family Medicine; Referring Provider Advanced Practice Midwife; Visit Provider Advanced Practice Midwife
DX: O99.891 Other specified diseases and conditions complicating pregnancy (principal); R06.02 Shortness of breath; H53.8 Other visual disturbances; Z3A.28 28 weeks gestation of pregnancy; O23.43 Unspecified infection of urinary tract in pregnancy, third trimester; O98.813 Other maternal infectious and parasitic diseases complicating pregnancy, third trimester; B95.1 Streptococcus, group B, as the cause of diseases classified elsewhere
CPT/HCPCS: 36415; 59025; 59050; 82565; 82570; 84156; 84450; 84460; 84550; 85027; 99221; G0378

== ENCOUNTER 2025-04-05 11:25 | Emergency (ER) | payer OTHER, SELFPAY ==
--- OUTSIDE RECORDS SUMMARY | 2025-02-15 14:26 | XMS RPT_ITS ---
Author Name Auto Generated Organization [facility] Care Team Providers Care Software Packager Name Role Phone NO PRIMARY CARE, Primary Care Unavailable MARTIN MCLAUGHLIN Attending Unavailable VITO VILLAR Referring Unavaillilian e VITO VILLAR Referring Erick e SONY PRIMARY CAREMD Primary Care Unavailable JER TURCIOS Attending Unavailable PROBLEMS No Problem Records Found PROCEDURES No Procedure Records Found RESULTS No Result Records Found ALLERGIES No Allergies Records Found ENCOUNTERS ADMIT/DISCHARGE ACCOUNT NUMBER ADMITTING ENCOUNTER CLASS LOCATION SOURCE 02/15/2025/02/15/2025 [id number] Ambulatory Gómez lding:[facility] 01/25/2025/01/25/2025 [id number] Ambulatory Gómez lding:[facility] PAYERS ENCOUNTER GUARANTOR PAYER SUBSCRIBER SOURCE 02/15/2025 [facility] [id number] [place] [address]Lvo: () Primary Insurance[facility] Number: [id number] Date: [facility] [id number] [place] [address] [facility] 01/25/2025 [facility] [id number] [place] [address]Vva: () Primary Insurance:[facility] Number: [id number] Date: [facility]: [id number] [place] [address] [facility]
[2025-04-05 11:27] VITALS: BP 109/70; PULSE 98; RESP 16; TEMP 37.7; O2SAT 97; BMI 37.5
--- NOTE | 2025-04-05 12:00 | EKG12_ITS ---
Test Reason : Blood Pressure : */* mmHG Vent. Rate : 96 BPM Atrial Rate : 96 BPM P-R Int : 136 ms QRS Dur : 74 ms QT Int : 360 ms P-R-T Axes : * 105 176 degrees QTcB Int : 454 ms Normal sinus rhythm Lateral infarct , age undetermined ST & T wave abnormality, consider inferior ischemia Abnormal ECG Confirmed by EZEQUIEL CHAUHAN, MORRIS ([id number]), editor trade journal DENISE ONEILL ([id number]) on 04/06/2025 8:03:54 AM Referred By: Confirmed By: MORRIS NIEVES MD
--- NOTE | 2025-04-05 12:05 | EDS_ITS ---
HPI History of Present Illness Chief Complaint: Dizziness Informant: patient Onset/Context/Timing Onset: Today and Yesterday Context: Gradual Onset Timing: Intermittent Current Severity: Mild Maximum Severity: Mild Narrative Narrative: 34-year-old female currently 30 weeks . G4, P3 and Ab0. States that she was already seen in labor delivery today. They sent her down she was complaining of dizziness and says she was having Stephenson Amato contractions. Atypical chest pain. Denies any cardiac history. No history of DVT or PE. No hemoptysis. No pleuritic pain. No leg pain or swelling. She does have a history of anxiety and states it feels like she is going to have an anxiety attack. She denies any vaginal bleeding. No dysuria. No fever or cough. No shortness of breath. Prior similar symptoms: Yes Recent Illness/Hospitalization: No PFSH PFSH Medical History Anxiety and depression Elective Dizziness Shortness of breath Hemorrhoid GERD (gastroesophageal reflux disease) Genital herpes Home Medications Medication Instructions Recorded Last Taken Type multivit-min no.71-iron fum 28 cap PO 10/22/24 5 History mg-folate no.1 1 mg-dha 300 mg capsule (PNV-[facility]) hydroxyzine HCl 25 mg tablet 25 mg PO TID PRN anxiety #120 tabs 02/18/25 Unknown Rx fluoxetine 40 mg capsule 40 mg PO DAILY #30 caps 02/06 09/01 Unknown Rx Allergy/AdvReac Type Severity Reaction Status Date / Time Latex, Natural Rubber Allergy Intermediate Swelling Verified 04/05/25 11:27 amoxicillin Allergy Hives Verified 04/05/25 11:27 naproxen (From Aleve) Allergy Hives Verified 04/05/25 11:27 sulfamethoxazole (From Allergy Hives Verified 04/05/25 11:27 Bactrim) trimethoprim (From Bactrim) Allergy Hives Verified 04/05/25 11:27 Family History Grandfather Diabetes Heart disease Grandmother No problems noted. 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 current occupational exposures/hazards: No pets and animals: No history of recent travel: Yes ([place], [place], [place], [place]) out of state: Yes out of country: Yes sexually active: Yes Smoking Status: Never smoker alcohol intake: current alcohol intake frequency: holidays/special occasions only details: Not while substance use type: former substance user Date of last use: 6 months ago- gummies and marijuana well-balanced diet: daily or most days caffeine: No eating out: 1-3 times/week during the past year weight has: increased > 10 lbs what type of physical activity do you participate in: none naomi/amish: None seatbelt use: always do you feel safe at home: Yes additional social history: FOB/BF - Chintan 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 Constitutional Constitutional ED: Denies chills or fever(s) Eyes Eyes: Denies blurry vision ENT ENT ED: Denies ear pain Cardiovascular Cardiovascular: Reports chest pain and palpitations Respiratory/Chest Respiratory/Chest: Denies cough or dyspnea Gastrointestinal Gastrointestinal: Denies abdominal pain, diarrhea or vomiting Genitourinary Genitourinary ED: Denies dysuria or hematuria Musculoskeletal Musculoskeletal: Denies arthralgias or back pain Integumentary Denies abscess or Abrasions Neurologic Neurologic: Denies headache(s) Psychiatric Psychiatric: Reports anxiety Endocrine Endocrinology: Denies cold intolerance Hematologic/Lymphatic Hematologic/Lymphatic: Reports none Allergic/Immunologic Allergic/Immunologic ED: Denies mouth swelling, tongue swelling, urticaria or other EXAM Physical Exam Narrative Exam Narrative: Well-appearing 34-year-old female. Vital signs stable afebrile does not look septic toxic no acute distress. Mildly anxious. Pulse ox 97% room air no hypoxia. H EENT exam pupils round react light. Moist mutes members. Neck nontender no JVD. No lymphadenopathy. Lungs clear to auscultation bilaterally. Heart regular rhythm rate about 90 no murmur. Chest wall ribs nontender. Abdomen soft, nontender nondistended normal bowel sounds without peritoneal signs. Gravid nontender uterus. Moving all 4 extremities. 5-5 microstrategy reports developer strength. Equal symmetrical radial pulses. Calves are nontender without edema or cords. Dorsi plantarflexion intact. Back nontender. Neurologically she is awake alert. Answering questions following commands. Benign exam. Const Vital Signs: 04/05/25 11:27 04/05/25 12:11 04/05/25 12:23 Temperature 99.8 F H 98.1 F Temperature Source Oral Oral Pulse Rate 98 88 Respiratory Rate 16 14 Blood Pressure 109/70 132/71 H Blood Pressure Mean 83 91 Pulse Ox 97 98 Oxygen Delivery Method Room Air Room Air Room Air 04/05/25 13:29 Temperature Temperature Source Pulse Rate 78 Respiratory Rate 14 Blood Pressure 124/68 H Blood Pressure Mean 86 Pulse Ox 98 Oxygen Delivery Method Room Air Positive well nourished and well developed; Negative for cachectic, contractures or unkempt General Appearance ED: well developed and NAD; Negative for unkempt, cachectic, contractures, cyanotic, diaphoretic or pallor Nutritional Appearance: Negative for cachectic HEENT Reports moist mucous membranes Eyes PERRL and EOMs intact bilaterally Neck no lymphadenopathy, supple and no JVD Chest Wall inspection of chest normal and palpation of chest normal Resp normal respiratory effort and clear to auscultation bilaterally Cardio regular rate, regular rhythm, S1 normal heart sound, S2 normal heart sound and no murmurs GI normal to inspection, nondistended, normoactive bowel sounds, non-tender, non- distended and no masses Auscultation: normoactive bowel sounds Palpation: soft; Negative for tender, guarding or rebound tenderness present Back/Spine no CVA tenderness General Back: Negative for CVA tenderness Cervical Spine: Negative for cervical spine tenderness Thoracic Spine / Upper Back: Negative for thoracic spinal tenderness or paraspinal muscle tenderness Lumbar Spine / Lower Back: Negative for lumbar spinal tenderness Extremity normal to inspection General Extremety ED: Negative for edema or tenderness General Extremity: Negative for edema Neuro oriented x3 and CN's II-XII intact bilaterally Sensorium / Orientation: alert Motor Exam: strength 5/5 throughout Psych mental status grossly normal Appearance: Negative for unkempt Mood & Affect: anxious; Negative for depressed or tearful Skin no rashes or lesions noted, no wounds and skin turgor normal General Skin Exam: elasticity normal; Negative for jaundice or pallor Lesions: No lesion noted Rashes: No rashes noted MDM MDM MDM Narrative Medical decision making narrative: 34-year-old female seems like most of this is anxiety she has a benign exam. She is 30 weeks she has Ilan Amato contractions a Earp gave her atypical chest pain. She has no history of DVT or PE. No leg pain or swelling. No calf pain or edema. She will undergo chest pain workup I do not think this is a DVT or PE. She will be given Ativan for anxiety. She has already been seen by labor and delivery today. Repeat exam arounds 1:00 and again at 2:26 PM patient is doing well. The Ativan did improve her anxiety. Her workup including CTA of her chest are negative. I think this is primarily secondary to anxiety. I do not think is acute cardiac event. Does not appear to be a pulmonary emboli. History & Record Review Discussion w/independent historian: Patient Additional record(s) reviewed:: Prior inpatient record, Prior outpatient record, Prior ED visit and Prior labs Lab Data Attestation: I reviewed the patient's lab results. Lab results narrative: CBC shows a white count of 8. H&H 11.0 and 32. Platelets 160. D-dimer is elevated 0.6. Troponin is less than 6. Electrolytes show gap 12. BUN and creatinine 8 and 0.5. Glucose 84. Chest x-ray unremarkable. Labs: Laboratory Results - last 24 hr 04/05/25 12:12 WBC 8.3 RBC 3.67 L Hgb 11.0 L Hct 32.3 L MCV 88.0 MCH 30.0 MCHC 34.1 RDW Std Deviation 40.2 RDW Coeff of Allison 12.6 Plt Count 160 MPV 9.2 Immature Gran % (Auto) 2.500 H Neut % (Auto) 67.1 Lymph % (Auto) 22.7 [place] % (Auto) 6.3 Eos % (Auto) 0.8 Baso % (Auto) 0.6 Absolute Neuts (auto) 5.6 Absolute Lymphs (auto) 1.88 Nucleated RBC % 0 D-Dimer Quant (PE/DVT) 0.66 H* Sodium 135 Potassium 4.1 Chloride 103 Carbon Dioxide 20.6 L Anion Gap 12 BUN 8 Creatinine 0.50 L Estim Creat Clear Calc 190.00 Est GFR (MDRD) Non-Af 127 BUN/Creatinine Ratio 15.8 Glucose 84 Calcium 8.3 Troponin T High Sens < 6 Radiography Chest X-Ray - ED: 2 View, Read by ED Physician, Read by Radiologist, Normal, Heart, Lungs, Mediastinum, Bony Structures and No Acute Disease Diagnostic Testing: Clinical Impression(s) from Imaging Studies Chest X-Ray 04/05/25 12:30 IMPRESSION: No radiographic evidence of acute cardiopulmonary disease. Reading Location: [place] [address] Chest CTA 04/05/25 12:48 IMPRESSION: There is no evidence of pulmonary embolus within the pulmonary artery or outflow track. Unremarkable exam. Reading Location: [place] [address] Chest x-ray, 2 views, AP and lateral, interpreted by myself and radiologist shows normal cardiac silhouette. Normal mediastinum. Normal lung brooks. No pneumonia. No effusions. Rhythm Strip Rhythm Strip: Sinus Rhythm Rate: 96 Ectopy: None EKG Initial EKG: Attestation: I personally reviewed and interpreted this EKG as follows: Interpretation: Sinus Rhythm and No Acute Injury Pattern Comments: Normal sinus rhythm rate 96 no acute signs of VT or ischemia. Inverted T waves in leads I, II and aVL. Prior EKG tracings: available for review Prior: Changed Discharge Plan Triage Chief Complaint: Dizziness ED Provider: Alejandro Gonzalez Dx/Rx/DC Orders Clinical Impression: Chest pain, Anxiety, Third trimester Instructions: ED Anxiety Reaction Prescriptions: No Action fluoxetine 40 mg capsule 40 mg PO DAILY Qty: 30 12RF PNV-[facility] 28-1-300 mg capsule PO hydroxyzine HCl 25 mg tablet 25 mg PO TID PRN (Reason: anxiety) Qty: 120 5RF Rx Instructions: 1-2 po q 6 hours PRN Primary Care Provider: Braulio Bosch Referrals: Braulio Bosch MD [Primary Care Provider, Family Practice] - As Needed Dulce Hyatt MD [Med Staff - Active Staff, Obstetrics-Gynecology (OBGYN)] - Keep Qi appointment Activity Restrictions/Additional Instructions: Follow-up with your OB as needed and scheduled. Continue your anxiety medications. Your labs and imaging today all look good. Print Language: Mauritanian Disposition Disposition: Home, Self Care
[2025-04-05 12:23] VITALS: BP 132/71; PULSE 88; RESP 14; TEMP 36.7; O2SAT 98
[2025-04-05 12:29] LABS: Hematocrit 32.3 % (37-47); Hemoglobin 11.0 g/dL (12.0-15.0); Immature Granulocytes Count 0.210 X10^3/uL (0.0-0.0); Mean Corp Hgb Conc 34.1 g/dL (32-36); Mean Corpuscular Volume 88.0 fL (81-99); Mean Platelet Vol. 9.2 fl (6.2-12.0); NRBC Flagged by Analyzer 0 % (0-5); Platelet Count 160 K/mm3 (150-450); RBC Distribution Width CV 12.6 % (11.6-14.6); RBC Distribution Width SD 40.2 fl (35.1-43.9); Red Blood Count 3.67 M/mm3 (4.2-5.4); White Blood Count 8.3 K/mm3 (4.4-11.0)
--- NOTE | 2025-04-05 12:30 | RAD_ITS ---
PROCEDURE: CHEST PA AND LATERAL 04/05/2025 REASON FOR EXAM: CHEST PAIN TECHNIQUE: Procedure Code: RADCXR Modality: DX Procedure: CHEST PA AND LATERAL COMPARISON: 07/03/2022 FINDINGS: Cardiomediastinal silhouette pulmonary vasculature and bony thorax are within normal limits. No focal infiltrates or effusion. RAD/Chest PA and Lateral IMPRESSION: No radiographic evidence of acute cardiopulmonary disease. Reading Location: [place] [id number]
[2025-04-05 12:47] LABS: D-Dimer Quantitative (DVT/PE) 0.66 FEU/ug/m (0.27-0.49)
--- NOTE | 2025-04-05 12:48 | CT_ITS ---
PROCEDURE: CTA CHEST W/WO CONTRAST 04/05/2025 REASON FOR EXAM: SHIELD ABD . CP Dizzy shortness of breath TECHNIQUE: Procedure Code: [id number] Modality: CT Procedure: CTA CHEST W/WO CONTRAST Multiplanar Sagittal and Coronal images were obtained. CONTRAST: Isovue 370 VOLUME: 100 mL One or more dose reduction techniques were used (e.g., Automated exposure control, adjustment of the mA and/or kV according to patient size, use of iterative reconstruction technique). RADIATION DOSE SUMMARY: CTDlvol: 14.6 mGy DLP: 418 mGycm COMPARISON: None FINDINGS: Thoracic Aorta: Unremarkable. Heart: Unremarkable. Pulmonary Vessels: There is no filling defect demonstrated in the pulmonary arterial trunk or outflow tract. Hardware: None Lymph nodes: None Lungs and Airways: Lungs are clear. Pleura: Unremarkable. Upper Abdomen: Unremarkable. Bones: Unremarkable. CT/CTA Chest W/WO Contrast IMPRESSION: There is no evidence of pulmonary embolus within the pulmonary artery or outflo w track. Unremarkable exam. Reading Location: [place] [id number]
[2025-04-05 12:51] LABS: Anion Gap 12 (5-15); BUN 8 mg/dL (4-19); BUN/Creat Ratio 15.8 RATIO (10-20); Calcium,Total 8.3 mg/dL (7.6-11.0); Carbon Dioxide 20.6 mmol/L (21.0-32.0); Chloride 103 mmol/L (98-108); Estimated Creatinine Clearance 190.00 ml/min (50-250); Glucose 84 mg/dL (70-99); Potassium 4.1 mmol/L (3.3-5.1); Troponin T High Sensitivity < 6 ng/L (<=14)
[2025-04-05 13:29] VITALS: BP 124/68; PULSE 78; RESP 14; O2SAT 98
[2025-04-05 14:35] VITALS: BP 126/78; PULSE 78; RESP 16; TEMP 37.1; O2SAT 99
[2025-04-05 15:08] LABS: Troponin T High Sens 2 HR < 6 ng/L (<=14)
== END 2025-04-05 14:36 | disposition home or self-care (01) ==
PROVIDERS: Emergency Provider Emergency Medicine; PCP Family Medicine; Visit Provider Emergency Medicine
DX: O99.343 Other mental disorders complicating pregnancy, third trimester (principal); R42 Dizziness and giddiness; F41.9 Anxiety disorder, unspecified; Z3A.30 30 weeks gestation of pregnancy; R07.89 Other chest pain
CPT/HCPCS: 71046; 71275; 80048; 84484; 85025; 85379; 93005; 96374; 99283; Q9967; A4216

== ENCOUNTER → 2025-04-08 | Outpatient (CLI) | payer OTHER, SELFPAY ==
[2025-04-08 16:45] LABS: Hematocrit 34.7 % (37-47); Hemoglobin 11.6 g/dL (12.0-15.0); Immature Granulocytes Count 0.140 X10^3/uL (0.0-0.0); Mean Corp Hgb Conc 33.4 g/dL (32-36); Mean Corpuscular Volume 87.2 fL (81-99); Mean Platelet Vol. 9.2 fl (6.2-12.0); NRBC Flagged by Analyzer 0 % (0-5); Platelet Count 189 K/mm3 (150-450); RBC Distribution Width CV 12.7 % (11.6-14.6); RBC Distribution Width SD 40.1 fl (35.1-43.9); Red Blood Count 3.98 M/mm3 (4.2-5.4); White Blood Count 8.4 K/mm3 (4.4-11.0)
[2025-04-08 17:12] LABS: Creatinine, Urine (random) 120.00 mg/dL (28.00-217.00); Protein, Urine (Random) 11.5 mg/dL (0.0-12.0); Protein:Creat Ratio 96 mg/g CRE (0-200)
[2025-04-08 17:15] LABS: AST(SGOT) 19 U/L (<=31); Alanine Aminotransfer ALT/SGPT 12 U/L (<=34); Albumin, Serum 3.6 g/dL (3.5-5.0); Alkaline Phosphatase 102 U/L (35-104); Anion Gap 11 (5-15); BUN 7 mg/dL (4-19); BUN/Creat Ratio 13.6 RATIO (10-20); Calcium,Total 8.5 mg/dL (7.6-11.0); Carbon Dioxide 20.7 mmol/L (21.0-32.0); Chloride 103 mmol/L (98-108); Globulin 2.6 g/dL (2.2-4.2); Glucose 75 mg/dL (70-99); Potassium 4.0 mmol/L (3.3-5.1)
== END | disposition home or self-care (01) ==
PROVIDERS: PCP Family Medicine; Visit Provider Obstetrics & Gynecology
DX: R80.9 Proteinuria, unspecified (principal)
CPT/HCPCS: 36415; 80053; 82570; 84156; 85025

== ENCOUNTER 2025-05-01 23:48 | Outpatient (CLI) | payer OTHER, SELFPAY ==
--- OUTSIDE RECORDS SUMMARY | 2025-05-01 23:56 | XMS RPT_ITS | CCD ---
Author Organization [facility]ini[facility] Care Team Providers Care Billboard Mechanic Name Role Phone Dr. Ariadne Rivers Primary Care Provider Dr. Ariadne Rivers Referring Provider Dr. Dulce Villar Attending Provider Dr. Ariadne Rivers Primary Care Provider Dr. Ariadne Rivers Referring Provider Dr. Dulce Villar Attending Provider MD Danitza [facility] Primary Care Provider Unav rosa elena Bosch MD [facility] Referring Provider Unavail Dr. Tang Diaz Attending Provider Danitza CHAUHAN, Dr. Ramsey Primary Care Provider Dr. Dulce Villar MD Attending Provider Dr. Dulce Villar MD Referring Provider Dr. Braulio Bosch MD Referring Provider Stacy Barron RN Attending Provider Unavaillilian Bosch MD, Dr. Ramsey Primary Care Provider Dr. Dulce Villar MD Attending Provider Dr. Dulce Villar MD Referring Provider Dr. Braulio Bosch MD Primary Care Provider Dr. Braulio Bosch MD Referring Provider Dr. Dulce Villar MD Attending Provider [phone] Dr. Ashlyn Lagos DO Attending Provider Rohan ORDOÑEZ, Mary Attending Provider [phone] PRIMARY CARE, Primary Care Unavailable DULCE VILLAR Referring UnavailMARTIN Villalpando Attending Unavailable NO PRIMARY CARE, Primary Care Unavailable DULCE VILLAR Referring UnavailJER Hall Attending Unavailable Danitza CHAUHAN, Dr. Ramsey Primary Care Provider Danitza CHAUHAN, Dr. Ramsey Primary Care Provider Danitza CHAUHAN, Dr. Ramsey Referring Provider Olena CHAUHAN, Dr. Cardona Attending Provider Olena CHAUHAN, Dr. Cardona Referring Provider Yadira IMAGING TECH-C, Bertha Attending Provider [phone] Danitza CHAUHAN, Dr. Ramsey [facility] Care Physicia n Danitza CHAUHAN, Dr. Ramsey Referring Provider [phone] Dr. Ashlyn Lagos DO Attending Physician Rohan ORDOÑEZ, Mary Attending Physician [phone] Olena CHAUHAN, Dr. Cardona Attending Physician Yadira IMAGING TECH-CBertha Attending Physician [phone] Dr. Dulce Villar MD Referring Provider Yadira IMAGING TECH-CBertha Referring Provider [phone] Rohan ORDOÑEZ, Mary Referring Provider [phone] Rohan ORDOÑEZ, Mary Nurse Practitioner [phone] Dr. Alejandro Gonzalez MD Emergency Department Physici an Braulio Bosch Primary Care Unavailable Dulce Villar Referring Unavailable Dulce Villar Attending Unavailable Braulio Bosch Primary Care Unavailable Dulce Villar Attending Unavailable Dulce Villar Referring Unavailable Dulce Villar Attending Unavailable Braulio Bosch Primary Care Unavailable Alejandro Gonzalez Attending Unavailable [facility] Unavailable Mary Madrigal Referring Unavailable Mary Madrigal Attending Unavailable [facility] Unavailable Danitza [place] Primary Care Unavailable MarcanthonyDulce Attending Unavailable MarcanthonyDulce Attending Unavailable Ranney, Christopher Referring Unavailable [place], [place] Primary Care Unavailable [place], [place] Primary Care Un[facility] Referring Unavailable MarcanthonyDulce Attending Unavailable [facility] Unavailable MarcwinnieonyDulce Referring Unavailable MarcanthonyDulce Attending Unavailable Yadira IMAGING TECH, Bertha Referring Unavailable Yadira IMAGING TECH, Bertha Attending Unavailable [facility], [place] Primary Care Unavailable [place] Referring Unavailable MarcanthonyDulce Attending Unavailable [place], [place] Primary Care Unavailable [place] Referring Unavailable MarcanthonyDulce Attending Unavailable [place], [place] Primary Care Unavailable [place], [place] Primary Care Unavailable [place] Referring Unavailable MarcanthonyDulce Attending Unavailable [place], [place] Primary Care Unavailable [place], [facility] Referring Unavailable MarcanthonyDulce Attending Unavailable [facility], [place] Primary Care Unavailable [facility], [place] Referring Unavailable Dulce Villar Attending Unavailable [facility], [place] Primary Care Unavailable Stacy Barron Attending Unavailable RohithanthonyDulce Attending Unavailable [facility], [place] Primary Care Unavailable [place], [facility] Referring Unavailable Vichy IMAGING TECH, Bertha Attending Unavailable [facility], [place] Primary Care Unavailable [place], [facility] Referring Unavailable [facility], [place] Primary Care Unavailable Mary Madrigal Attending Unavailable Mary Madrigal Consulting Unavailable Mary Madrigal Referring Unavailable Stacy Barron Attending Unavailable Ranney [facility], [facility] Unavaila ble Dulce Villar Attending Unavailable Ranney OLS, Christopher Referring Unavaila ble Ranney [facility], [facility] Unavaila ble [facility], [facility] Referring Unavailable Ashlyn Lagos Attending Unavailabl e [facility], [place] Primary Care Unavailable [place], [place] Primary Care Unavailable [place], [facility] Referring Unavailable Mary Madrigal Attending Unavailable Dulce Villar Attending Unavailable MarcanthonyDulce Referring Unavailable [place], [facility] Unavailable Dulce Villar Attending Unavailable JovannyonyDulce Referring Unavailable [place], [place] Primary Care Unavailable Dulce Villar Attending Unavailable [place], Christopher Primary Care Unavailable Allergies Allergy Classification Reported Allergen(s) Allergy Type Date of Onset Reaction(s) Facility (20 sources) Amoxicillin Drug Allergy 1 [facility] (20 sources) Naproxen Drug Allergy 1 [facility] (20 sources) Sulfamethoxazole Drug Allergy 1 [facility] (20 sources) Trimethoprim Drug Allergy 1 [facility] (14 sources) natural latex rubber Allergy to substance 5 [facility] Comment on above: condoms- vaginal, sw elling Burning (1 source) Amoxicillin Drug Allergy 5 [facility] (1 source) Naproxen Drug Allergy 5 [facility] (1 source) natural latex rubber Drug allergy (disorder) 5 [facility] (1 source) Sulfamethoxazole Drug Allergy 5 [facility] (1 source) Trimethoprim Drug Allergy 5 [facility] Medications Current Medications Medication Drug Class(es) Dates Sig (Normalized) Sig (Original) FLUoxetine 40 mg oral capsule (20 sources) Serotonin Reuptake Inhibitor Start: 02-26-2025 take 1 capsule by mouth once daily Start: 07-03-2024 End: 02-26-2025 take 1 capsule by mouth once daily Fluoxetine 20 mg capsule Discontinued 20 mg PO DAILY 06 07July 03, 2024 5:24pm February 26, 2025 4:11pm Start: 06-26-2024 End: 07-03-2024 take 10 mg by mouth every other day Fluoxetine 20 mg capsule Discontinued 0 PO DAILY June 26, 2024 11:22am July 03, 2024 5:46pm 10mg orally every other day; Start: 02-10-2024 End: 06-26-2024 take 1 capsule by mouth once daily Fluoxetine 20 mg capsule Discontinued 20 mg PO DAILY February 10, 2024 12:00am June 26, 2024 11:23am hydrOXYzine hydrochloride 25 mg oral tablet (20 sources) Antihistamine Start: 11-05-2024 End: 02-18-2025 take 1 tablet by mouth every six hours as needed for anxiety Mv-Mins 33-Hmlb-Uyrhh No.1-Dha (Pnv-[place]) 28-1-300 mg capsule (14 sources) Start: 10-22-2024 Start: 10-22-2024 Mv-Mins 71-Iro n-Folic No.1-Dha (Pnv-[place]) 28-1-300 mg capsule Active NMA PO October 22, 2024 12:00am [place] (Nk) (4 sources) Start: 05-17-2022 [place] (Nk) A ctive May 17, 2022 1:00am Start: 05-17-2022 [place] (Nk) A ctive May 17, 2022 12:00am Completed/Discontinued Medications Medication Drug Class(es) Dates Sig (Normalized) Sig (Original) acetaminophen 325 mg / oxyCODONE hydrochloride 5 mg oral tablet (20 sources) Opioid Agonist Start: 01-14-2021 End: 03-02-2021 Oxycodone-Acetaminop hen (Endocet) 5-325 mg tablet Discontinued 1 {tbl} PO Q4H as needed for pain 20 7 0 January 14, 2021 March 02, 2021 8:50am Spontaneous vaginal delivery Encounter for full-term uncomplicated delivery Start: 06-13-2019 End: 06-24-2019 Oxycodone-Acetaminophen 1 TA BLET tablet Discontinued 1 - 2 {tbl} PO EVERY 6 HOURS NEEDED as needed for Pain 15 7 0 June 13, 2019 June 19, 2019 1:00am June 24, 2019 1:11am Other acute postprocedural pain Start: 06-13-2019 End: 06-24-2019 take 1 tablet by mouth every six hours as needed Oxycodone-Acetaminophen Discontinued 1 - 2 TABLET PO EVERY 6 HOURS NEEDED 15 7 June 13, 2019 June 24, 2019 1:11am acyclovir 400 mg oral tablet (20 sources) Herpesvirus Nucleoside Analog DNA Polymerase Inhibitor, Herpes Simplex Virus Nucleoside Analog DNA Polymerase Inhibitor, Herpes Zoster Virus Nucleoside Analog DNA Polymerase Inhibitor Start: 02-13-2018 End: 03-19-2018 take 1 tablet by mouth twice daily Acyclovir 400 mg tablet Discontinued 400 mg PO TWICE A DAY 60 February 13, 2018 12:00am March 19, 2018 5:00pm ALPRAZolam 0.5 mg oral tablet (20 sources) Benzodiazepine Start: 03-02-2020 End: 03-02-2021 take 1 tablet by mouth twice daily as needed for anxiety Alprazolam 0.5 mg tablet Discontinued 0.5 mg PO TWICE A DAY as needed for Anxiety March 02, 2020 12:00am March 02, 2021 8:50am ascorbic acid 500 mg oral tablet (20 sources) Vitamin C Start: 03-07-2020 End: 05-04-2020 take 1 tablet by mouth every other day Ascorbic Acid (Vitamin C) 500 mg tablet Discontinued 500 mg PO every other day March 07, 2020 12:00am May 04, 2020 3:07pm aspirin 81 mg delayed release oral tablet (20 sources) Platelet Aggregation Inhibitor, Nonsteroidal Anti-inflammatory Drug Start: 08-02-2020 End: 01-13-2021 take 1 tablet by mouth once daily Aspirin 81 mg tablet,delayed release (DR/EC) Discontinued 81 mg PO DAILY August 02, 2020 1:00am January 13, 2021 4:46pm covid + in cefdinir 300 mg oral capsule (20 sources) Cephalosporin Antibacterial Start: 12-08-2020 End: 12-22-2020 take 1 capsule by mouth twice daily Cefdinir 300 mg capsule Discontinued 300 mg PO TWICE A DAY 14 7 0 December 08, 2020 12:00am December 22, 2020 10:53am cephalexin 500 mg oral capsule (20 sources) Cephalosporin Antibacterial Start: 10-13-2019 End: 10-20-2019 take 1 capsule by mouth every twelve hours Cephalexin (Keflex) 500 mg capsule Discontinued 500 mg PO Q12H 14 7 0 October 13, 2019 12:00am October 19, 2019 12:00am October 20, 2019 12:02am Start: 09-02-2019 End: 09-09-2019 take 1 capsule by mouth every twelve hours Cephalexin (Keflex) 500 mg capsule Discontinued 500 mg PO Q12H 14 7 0 September 02, 2019 1:00am September 08, 2019 1:00am September 09, 2019 1:07am cholecalciferol 0.125 mg oral tablet (20 sources) Vitamin D Start: 03-07-2020 End: 03-02-2021 take 1 tablet by mouth once daily Cholecalciferol (Vitamin D3) 125 mcg (5,000 unit) tablet Discontinued 125 ug PO DAILY March 07, 2020 12:00am March 02, 2021 8:50am supplement Start: 04-08-2019 End: 03-02-2020 take 1 capsule by mouth once daily Cholecalciferol (Vitamin D3) 1,000 unit capsule Discontinued 1000 U PO DAILY April 08, 2019 12:00am March 02, 2020 8:42am Check with primary doctor citalopram 20 mg oral tablet (20 sources) Serotonin Reuptake Inhibitor Start: 01-23-2019 End: 04-08-2019 take 1 tablet by mouth once daily Citalopram (Celexa) 20 mg tablet Discontinued 20 mg PO DAILY 30 January 23, 2019 12:00am April 08, 2019 2:34pm docosahexaenoic acid 200 mg oral capsule (20 sources) Start: 06-26-2024 End: 09-01-2024 Docosahexaenoic Acid ( Dha) 200 mg capsule Discontinued mg PO June 26, 2024 1:00am September 01, 2024 2:41pm Start: 01-13-2021 End: 03-02-2021 take 1 capsule by mouth once daily Docosahexaenoic Acid 200 mg Capsule Discontinued 200 mg PO DAILY January 13, 2021 12:00am March 02, 2021 8:50am Check with primary doctor Start: 04-08-2019 End: 03-02-2020 Docosahexaenoic Acid (Algal- 900 Dha) 300 mg capsule Discontinued mg PO 0 April 08, 2019 12:00am March 02, 2020 8:42am Check with primary doctor docusate sodium 100 mg oral capsule (20 sources) Start: 12-09-2018 End: 03-02-2020 take 1 capsule by mouth once daily Docusate Sodium 100 MG capsule Discontinued 100 mg PO DAILY June 11, 2019 3:03pm March 02, 2020 8:42am constipation doxylamine succinate 10 mg / pyridoxine hydrochloride 10 mg delayed release oral tablet (14 sources) Start: 07-03-2024 End: 09-01-2024 Doxylamine-Pyridox ine (Vit B6) (Diclegis) 10-10 mg tablet,delayed release (DR/EC) Discontinued 1 {tbl} PO TWICE A DAY 60 July 03, 2024 1:00am September 01, 2024 2:41pm fosfomycin 3000 mg powder for oral solution (11 sources) Start: 12-03-2024 End: 02-26-2025 take 3 g by mouth once Fosfomycin Tromethamine 3 gram packet Discontinued 3 g PO ONCE 1 December 03, 2024 12:00am February 26, 2025 4:16pm ibuprofen 400 mg oral tablet (20 sources) Nonsteroidal Anti-inflammatory Drug Start: 01-14-2021 End: 03-02-2021 take 2 tablets by mouth every eight hours Ibuprofen 400 MG tablet Discontinued 800 mg PO Q8H 30 January 14, 2021 12:00am March 02, 2021 8:50am Start: 01-14-2021 End: 03-02-2021 take 800 mg by mouth every eight hours Ibuprofen Discontinued 800 MG PO Q8H January 14, 2021 12:00am March 02, 2021 8:50am Start: 06-13-2019 End: 07-21-2019 take 1 tablet by mouth every six hours as needed for pain Ibuprofen 600 MG tablet Discontinued 600 mg PO EVERY 6 HOURS NEEDED as needed for Pain 30 0 June 13, 2019 1:00am July 21, 2019 1:47pm nitrofurantoin, macrocrystals 25 mg / nitrofurantoin, monohydrate 75 mg oral capsule (14 sources) Nitrofuran Antibacterial Start: 07-06-2024 End: 07-13-2024 take 1 capsule by mouth twice daily at mealtime Nitrofurantoin Monohyd/M-Cryst (Macrobid) 100 mg capsule Discontinued 100 mg PO TWICE A DAY 14 7 July 06, 2024 1:00am July 12, 2024 1:00am July 13, 2024 1:11am must administer with a meal/food nystatin 533558 unt/ml oral suspension (14 sources) Polyene Antifungal Start: 07-03-2024 End: 09-01-2024 take [id number] [IU] by mouth four times daily Nystatin 100,000 unit/mL suspension Discontinued 4 mL PO ONCE 60 July 03, 2024 1:00am September 01, 2024 2:41pm 400,000 to 600,000 units 4 times daily; swish in the mouth and retain for as long as possible (several minutes) before swallowing. Duration is for 7 to 14 days Pnv #98-Cxvt-Fauoj Acid-Omega3 30 mg iron-10 mg iron-1 mg capsule (8 sources) Start: 11-18-2018 End: 03-02-2020 Pnv #30-Ltyc-Uudol Acid-Omega3 30 mg iron-10 mg iron-1 mg capsule Discontinued 1 NMA PO DAILY 0 November 18, 2018 12:00am March 02, 2020 8:42am Start: 11-18-2018 End: 03-02-2020 Pnv #12-Dvyf-Rvqga Acid-Omeg a3 30 mg iron-10 mg iron-1 mg capsule Discontinued 1 NMA PO DAILY November 18, 2018 12:00am March 02, 2020 8:42am Pnv #03-Melo-Maodb Acid-Dha 35 mg iron-5 mg iron-1 mg capsule (8 sources) Start: 07-26-2017 End: 05-05-2018 Pnv #55-Bjqy-Yamss Acid-Dha 35 mg iron-5 mg iron-1 mg capsule Discontinued 1 NMA PO daily July 26, 2017 1:00am May 05, 2018 10:36am Start: 07-26-2017 End: 05-05-2018 Pnv #29-Nonc-Mzxdm Acid-Dha 35 mg iron-5 mg iron-1 mg capsule Discontinued 1 NMA PO daily July 26, 2017 1:00am May 05, 2018 10:36am Pnv 17-Lpsh-Zjbja Bomd-Mmtxv-5 30 mg iron-10 mg iron-1 mg capsule (6 sources) Start: 11-18-2018 End: 03-02-2020 Pnv 55-Twpg-Rcmkz Jryz-Mwmtm-9 30 mg iron-10 mg iron-1 mg capsule Discontinued 1 NMA PO DAILY 0 November 18, 2018 12:00am March 02, 2020 8:42am Pnv No.09-Gfyl-Xotvj Acid-Dha 35 mg iron-5 mg iron-1 mg capsule (6 sources) Start: 07-26-2017 End: 05-05-2018 Pnv No.57-Xrgp-Bwlqz Acid-Dha 35 mg iron-5 mg iron-1 mg capsule Discontinued 1 NMA PO daily July 26, 2017 1:00am May 05, 2018 10:36am Prenat.Vits,[place],Min-Iron -Folic (6 sources) Start: 03-07-2020 End: 05-03-2022 take 1 tablet by mouth once at bedtime Prenat.Vits,[place],Min-Iro n-Folic Discontinued 1 TABLET PO AT BEDTIME March 06, 2020 11:00pm May 03, 2022 7:19am Start: 03-07-2020 End: 05-03-2022 take 1 tablet by mouth once at bedtime Prenat.Vits,[place],Yfd-Cjlb-Dauiz Discontin ued 1 TABLET PO AT BEDTIME March 07, 2020 12:00am May 03, 2022 8:19am Prenat.Vits,[place],Vwj-Nyup-Ppu ic tablet (14 sources) Start: 03-07-2020 End: 05-03-2022 Prenat.Vits,[place],Hkr-Pvqq-Wkz ic tablet Discontinued 1 {tbl} PO AT BEDTIME March 07, 2020 12:00am May 03, 2022 8:19am Check with primary doctor Start: 03-07-2020 End: 05-03-2022 Prenat.Vits,[place],Zdm-Iuvg-Yzu ic tablet Discontinued 1 {tbl} PO AT BEDTIME March 07, 2020 12:00am May 03, 2022 8:19am vitamin #56-iron 35 mg and 5 mg-folic acid 1 mg-dha capsule (6 sources) Start: 07-26-2017 End: 05-05-2018 take 1 capsule by mouth once daily vitamin #56-iron 35 mg and 5 mg-folic acid 1 mg-dha capsule Discontinued 1 CAP PO daily July 26, 2017 12:00am May 05, 2018 9:36am Start: 07-26-2017 End: 05-05-2018 take 1 capsule by mouth once daily vitamin #56-iron 35 mg and 5 mg-folic acid 1 mg-dha capsule Discontinued 1 CAP PO daily July 26, 2017 1:00am May 05, 2018 10:36am vitamin#30 30 mg iron-10 mg iron-folic acid 1 mg-omg3 capsule (6 sources) Start: 11-18-2018 End: 03-02-2020 take 1 capsule by mouth once daily vitamin#30 30 mg iron-10 mg iron-folic acid 1 mg-omg3 capsule Discontinued 1 CAP PO DAILY November 17, 2018 11:00pm March 02, 2020 7:42am Start: 11-18-2018 End: 03-02-2020 take 1 capsule by mouth once daily vitamin#30 30 mg iron-10 mg iron-folic acid 1 mg-omg3 capsule Discontinued 1 CAP PO DAILY November 18, 2018 12:00am March 02, 2020 8:42am prochlorperazine 10 mg oral tablet (14 sources) Phenothiazine Start: 11-06-2024 End: 04-05-2025 take 1 tablet by mouth every eight hours as needed for nausea and vomiting Prochlorperazine Maleate (Compazine) 10 mg tablet Discontinued 10 mg PO Q8H as needed for nausea and vomiting 90 3 November 06, 2024 12:00am April 05, 2025 10:07am promethazine hydrochloride 25 mg oral tablet (10 sources) Phenothiazine Start: 01-01-2025 End: 04-05-2025 take 1 tablet by mouth every six hours as needed for nausea and vomiting Promethazine 25 mg tablet Discontinued 25 mg PO EVERY 6 HOURS as needed for nausea and vomiting 30 0 January 01, 2025 12:00am April 05, 2025 10:07am raNITIdine 150 mg oral tablet (20 sources) Histamine-2 Receptor Antagonist Start: 12-24-2017 End: 05-05-2018 take 1 tablet by mouth twice daily Ranitidine Hcl 150 MG tablet Discontinued 150 mg PO TWICE A DAY March 19, 2018 5:00pm May 05, 2018 10:37am reflux valACYclovir 1000 mg oral tablet (20 sources) Herpesvirus Nucleoside Analog DNA Polymerase Inhibitor, Herpes Simplex Virus Nucleoside Analog DNA Polymerase Inhibitor, Herpes Zoster Virus Nucleoside Analog DNA Polymerase Inhibitor Start: 04-18-2023 End: 03-14-2025 Valacyclovir (Valtrex) 1 gram tablet Discontinued 1000 mg PO TWICE A DAY as needed for outbreak 6 3 0 March 11, 2025 3:21pm March 13, 2025 12:00am March 14, 2025 12:07am Start: 12-22-2020 End: 01-13-2021 take 1 tablet by mouth once daily Valacyclovir (Valtrex) 500 mg tablet Discontinued 500 mg PO daily January 13, 2021 7:12am January 13, 2021 4:46pm hsv Start: 06-11-2019 End: 03-02-2020 take 1 tablet by mouth twice daily Valacyclovir 500 MG tablet Discontinued 500 mg PO TWICE A DAY June 11, 2019 3:03pm March 02, 2020 8:42am Check with primary doctor Start: 05-18-2019 End: 06-11-2019 take 1 tablet by mouth once daily Valacyclovir (Valtrex) 500 mg tablet Discontinued 500 mg PO DAILY 90 1 May 18, 2019 1:00am June 11, 2019 3:04pm Problems Active Problems Problem Classification Problem Date Documented Date Episodic/Chronic Anxiety disorders (20 sources) Mixed anxiety and depressive disorder; Translations: [Anxiety disorder, unspecified] Onset: 04-23-2025 09-03-2024 Chronic Comment on above: see counselor; jada taylor Bacterial infection; unspecified site (2 sources) Streptococcus, group B, as the cause of diseases classified elsewhere; Translations: [Streptococcus, group B, as the cause of diseases classified elsewhere] Onset: 04-23-2025 Episodic Blindness and vision defects (11 sources) Blurring of visual image; Translations: [Other visual disturbances] Onset: 04-26-2025 04-05-2025 Episodic Comment on above: normal BP and pre e labs. Chronic obstructive pulmonary disease and bronchiectasis (18 sources) Bronchitis; Translations: [Bronchitis, not specified as acute or chronic] 06-25-2022 Episodic Conditions associated with dizziness or vertigo (20 sources) Dizziness; Translations: [Dizziness and giddiness] 08-02-2020 Episodic Comment on above: Normal cardiac work up. Follow up scheduled in 6 months E Codes: Adverse effects of medical drugs (14 sources) Anesthetics adverse reaction; Translations: [Adverse effect of unspecified anesthetic, initial encounter] 09-03-2024 Episodic Comment on above: Hypotension with epi dural 2nd Esophageal disorders (14 sources) Gastroesophageal reflux disease; Translations: [Gastro-esophageal reflux disease without esophagitis] 09-03-2024 Chronic Genitourinary symptoms and ill-defined conditions (20 sources) Dysuria; Translations: [Dysuria] Onset: 01-29-2025 12-03-2024 Episodic Comment on above: ordered ua and cultu re Hemorrhage during ; abruptio placenta; placenta previa (20 sources) Placenta previa marginalis; Translations: [Partial placenta previa NOS or without hemorrhage, unspecified trimester] 05-08-2019 Episodic Comment on above: resolved Immunizations and screening for infectious disease (1 source) Encounter for immunization; Translations: [Encounter for immunization] Onset: 04-08-2025 Episodic Induced (4 sources) Termination of ; Translations: [Encounter for elective termination of ] 09-01-2024 Episodic Menstrual disorders (15 sources) Amenorrhea; Translations: [Amenorrhea, unspecified] 04-26-2023 Chronic Comment on above: HCGx1 Miscellaneous mental health disorders (17 sources) Psychologic conversion disorder; Translations: [Dissociative and conversion disorder, unspecified] 07-14-2022 Chronic Mood disorders (2 sources) Major depressive disorder, single episode, unspecified; Translations: [Major depressive disorder, single episode, unspecified] Onset: 04-23-2025 Chronic Nonspecific chest pain (6 sources) Chest pain; Translations: [Chest pain, unspecified] Onset: 04-08-2025 04-05-2025 Episodic Other bone disease and musculoskeletal deformities (20 sources) Segmental and somatic dysfunction; Translations: [Segmental and somatic dysfunction of cervical region] 12-09-2018 Episodic Other circulatory disease (20 sources) Disorder of capillaries; Translations: [Disease of capillaries, unspecified] 12-10-2018 Episodic Other complications of (20 sources) ; Translations: [Supervision of with history of infertility, unspecified trimester] 12-09-2018 Episodic Comment on above: PRR TIFFANY 03/15/18 Finesse; comanage with gold layer elects NIPT with Gen tatyana Discussed genetic/ca rrier testing - Undecided LR NIPT. declined ca rrier LR NIPT. declined ca rrier, normal anatomy Other complications of (20 sources) Vaginal discharge; Translations: [Other specified related conditions, unspecified trimester] 12-09-2018 Episodic Other complications of (20 sources) Venereal disease in mother complicating , childbirth AND/OR puerperium; Translations: [Other infections with a predominantly sexual mode of transmission complicating , unspecified trimester] 12-09-2018 Episodic Comment on above: acyclovir Last outbreak (2023) Other complications of (20 sources) High risk ; Translations: [Supervision of high risk , unspecified, unspecified trimester] 10-22-2024 Episodic Comment on above: , TIFFANY 06/14/25, P Hortensia nAderson, Isamar Abarca, Partner Chintan PRR , TIFFANY 5, girl Teresa PC Justin, [place], Isamar, Partner Cihntan Other complications of (20 sources) Urinary tract infection in ; Translations: [Unspecified infection of urinary tract in , unspecified trimester] 09-03-2024 Episodic Comment on above: Rpt urine culture ne xt visit PCN in labor Other complications of (20 sources) H/O: depression; Translations: [History of depression, currently ] 10-22-2024 Episodic Other complications of (2 sources) Genital herpes simplex in mother complicating ; Translations: [Other infections with a predominantly sexual mode of transmission complicating , unspecified trimester] 05-05-2018 Episodic Comment on above: acyclovir Last outbreak (2023) Other complications of (2 sources) Unspecified infection of urinary tract in , third trimester; Translations: [Unspecified infection of urinary tract in , third trimester] Onset: 04-23-2025 Episodic Other complications of (2 sources) Supervision of high risk , unspecified, third trimester; Translations: [Supervision of high risk , unspecified, third trimester] Onset: 04-23-2025 Episodic Other complications of (2 sources) Supervision of high risk , unspecified, unspecified trimester; Translations: [Supervision of high risk , unspecified, unspecified trimester] Onset: 11-06-2024 Episodic Other complications of (1 source) Unspecified infection of urinary tract in , unspecified trimester; Translations: [Unspecified infection of urinary tract in , unspecified trimester] Onset: 01-29-2025 Episodic Other lower respiratory disease (20 sources) Dyspnea; Translations: [Shortness of breath] 08-02-2020 Episodic Other lower respiratory disease (1 source) Shortness of breath; Translations: [Shortness of breath] Onset: 04-26-2025 Episodic Other screening for suspected conditions (not mental disorders or infectious disease) (1 source) Encounter for screening for diabetes mellitus; Translations: [Encounter for screening for diabetes mellitus] Onset: 04-07-2025 Episodic Other skin disorders (20 sources) Splinter hemorrhages under nail; Translations: [Other nail disorders] 05-31-2020 Episodic Otitis media and related conditions (20 sources) Acute otitis media; Translations: [Otitis media, unspecified, unspecified ear] 01-13-2021 Episodic Polyhydramnios and other problems of amniotic cavity (20 sources) Oligohydramnios; Translations: [Oligohydramnios, unspecified trimester, not applicable or unspecified] 12-09-2018 Episodic Residual codes; unclassified (20 sources) Family history of malignant neoplasm of ovary; Translations: [Family history of malignant neoplasm of ovary] 05-18-2022 Episodic Comment on above: empower screen order ed, 05/18/22 Negative Empower Hereditary Cancer test results. Residual codes; unclassified (5 sources) Family history of malignant neoplasm of ovary; Translations: [Family history of malignant neoplasm of ovary] Episodic Residual codes; unclassified (14 sources) H/O: Disorder; Translations: [Personal history of other complications of , childbirth and the puerperium] 09-03-2024 Episodic Comment on above: repeat growth US at 36 weeks. Residual codes; unclassified (20 sources) Family history of cleft palate with cleft lip; Translations: [Family history of other congenital malformations, deformations and chromosomal abnormalities] 10-22-2024 Episodic Comment on above: Brother Residual codes; unclassified (2 sources) Family history of other congenital malformations, deformations and chromosomal abnormalities; Translations: [Family history of other congenital malformations, deformations and chromosomal abnormalities] Onset: 04-23-2025 Episodic Residual codes; unclassified (1 source) 32 weeks gestation of ; Translations: [32 weeks gestation of ] Onset: 04-23-2025 Episodic Residual codes; unclassified (1 source) 30 weeks gestation of ; Translations: [30 weeks gestation of ] Onset: 04-08-2025 Episodic Residual codes; unclassified (1 source) Personal history of other complications of , childbirth and the puerperium; Translations: [Personal history of other complications of , childbirth and the puerperium] Onset: 04-08-2025 Episodic Residual codes; unclassified (1 source) 28 weeks gestation of ; Translations: [28 weeks gestation of ] Onset: 04-26-2025 Episodic Residual codes; unclassified (1 source) 20 weeks gestation of ; Translations: [20 weeks gestation of ] Onset: 01-29-2025 Episodic Screening and history of mental health and substance abuse codes (19 sources) H/O: anxiety state; Translations: [Personal history of other mental and behavioral disorders] Onset: 04-23-2025 07-14-2022 Episodic Substance-related disorders (20 sources) History of clinical finding in subject; Translations: [History of marijuana use] 10-22-2024 Chronic Comment on above: Gummies last used , discussed random tox screens during Thyroid disorders (20 sources) Goiter; 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 Per surgery: rpt US 2024 Unclassified (2 sources) Cannabis use, unspecified, in remission; Translations: [Cannabis use, unspecified, in remission] Onset: 04-23-2025 Unclassified (2 sources) Other specified diseases and conditions complicating ; Translations: [Other specified diseases and conditions complicating ] Onset: 04-23-2025 Viral infection (6 sources) Genital herpes simplex; Translations: [Herpesviral infection of urogenital system, unspecified] 03-02-2021 Chronic Viral infection (18 sources) Viral disease; Translations: [Viral infection, unspecified] 06-25-2022 Episodic Past or Other Problems Problem Classification Problem Date Documented Date Episodic/Chronic Other and delivery including normal (20 sources) Vaginal delivery; Translations: [Encounter for full-term uncomplicated delivery] Onset: 07-31-2024 05-03-2022 Episodic Comment on above: , TIFFANY 02/09/25, PC: Tevin Anderson & Isamar, BF/FOB: Chintan (his first) IAL SM Girl 40 Results Test Name Value Interpretation Reference Range Facility Trial Judge Office Visit Reporton 04-23-2025 Trial Judge Office Visit Report [facility] [address], [address] [place] [address] OFFICE VISIT Date of Service: 04/23/25 MR#: [id number] Acct: [id number] Name: SHIRA ARBOLEDA Rep #: [id number] : 1990 Provider: Dr. Dulce sanchez MD Age/Sex: 34/F Location: [facility] Status: Signed Intake Vital Signs 03/23/25 10:00 04/08/25 13:03 04/23/25 15:32 04/23/25 15:34 Height 5 ft 5 in 5 ft 5 in 5 ft 5 in 5 ft 5 in Weight: 235 lb 8 oz BMI 39.2 BP 106/72 Intake Visit Reasons: 32 WK OB *r/s 06/08 Other Sports Coach Or Instructor Required: No Is patient in pain?: No Allergies Latex, Natural Rubber Allergy (Intermediate, Verified 04/23/25 15:32) Swelling amoxicillin Allergy (Verified 04/23/25 15:32) Hives naproxen (From Aleve) Allergy (Verified 04/23/25 15:32) Hives sulfamethoxazole (From Bactrim) Allergy (Verified 04/23/25 15:32) Hives trimethoprim (From Bactrim) Allergy (Verified 04/23/25 15:32) Hives Medications ???Medication ???Instructions ???Recorded ???Confirmed ???Type multivit-min no.71-iron fum 28 cap PO 10/22/24 04/23/25 History mg-folate no.1 1 mg-dha 300 mg capsule (PNV-[place]) hydroxyzine HCl 25 mg tablet 25 mg PO TID PRN anxiety #120 tabs 02/18/25 04/23/25 Rx fluoxetine 40 mg capsule 40 mg PO DAILY #30 caps 02/26/25 1 Rx Last Menstrual Period: 09/07/24 Zika: Zika virus screening: Negative : No PFSH PFSH Medical History Anxiety and depression Elective Dizziness Shortness of breath Hemorrhoid GERD (gastroesophageal reflux disease) Genital herpes Surgical History H/O wisdom tooth extraction S/P tonsillectomy H/O eye surgery Family History Grandfather Diabetes Heart disease Grandmother No problems noted. 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 current occupational exposures/hazards: No pets and animals: No history of recent travel: Yes ([place], [place], [place], [place]) out of state: Yes out of country: Yes sexually active: Yes Smoking Status: Never smoker alcohol intake: current alcohol intake frequency: holidays/special occasions only details: Not while substance use type: former substance user Date of last use: 6 months ago- gummies and marijuana well-balanced diet: daily or most days caffeine: No eating out: 1-3 times/week during the past year weight has: increased > 10 lbs what type of physical activity do you participate in: none naomi/zoroastrianism: None seatbelt use: always do you feel safe at home: Yes additional social history: FOB/BF - Chintan Ripple: [employer] Specialist History 5 Elective abortions 1 Hx Para 3 Spontaneous abortions Hx # Term Pregnancies 3 Ectopic pregnancies Hx # Pregnancies Multiple births # of living children 3 Past Pregnancies Del. Date Name GA/Weeks Outcome Route Bth Weight Infant Gen Labor Lgth Anesthesia Del Locat Provider FOB 03/21/18 Justin 40 live - full term 9lbs 7oz Male epidural [facility] Natali Kilpatrick 06/12/19 Thakur-Goes by Tevin 40 live - full term 8lbs 8oz Male epidural [facility] Dr. Olena Kilpatrick 01/13/21 Isamar 40 live - full term 7lbs 6oz Female epidural [facility] Hafsa Kilpatrick 07/10/24 elective Delivery Date: 03/21/18 Last Updated by: Elvira Travis Prolonged labor, Oligo Delivery Date: 06/12/19 Last Updated by: Elvira Travis hypotension during labor HPI 32 WK OB *r/s 06/08 Details: SHIRA ARBOLEDA is a 34 year old who presents for routine OB visit. OB Visit TIFFANY Calculator Estimated Delivery Date Method Current WG Current Estimate 06/14/25 LMP (Certain) 32w 4d Other Estimates 06/13/25 Ultrasound #1 32w 5d Expected Delivery Route/Plan with SM if available Labor Preferences- CB/BF classes: no labor support person: Chintan labor intervention preferences: [] pain management options preferred: epidural cut cord/dad catch: yes : yes PP control planned: discussed discussed possible routes of delivery and associated risks: [] special requests: [] Specific Issue/Plans Covid status: [] Flu vaccine: declines Tdap vaccine: declines Rhogam: NA LARC form signed: yes Problem list reviewed and updated with the most current plan of care details and appropriate orders placed. Relevan (more content not included)... Normal [facility] CBC W/Diff, Automatedon 10-0 2-2024 Absolute Lymph 2.12 X10 3/uL Normal 0.83-4.51 [facility] Comment on above: Performed By: #### L 3890.6301, L3890.6102, L509.4006, L100.0100, L509.8002, BTS, L900.0098, L3890.6006 #### [facility] [address] [place], [address] Absolute Neut 5.4 X10 3/uL Normal 2.0-7.7 [facility] Comment on above: Performed By: #### L 3890.6301, L3890.6102, L509.4006, L100.0100, L509.8002, BTS, L900.0098, L3890.6006 #### [facility] [address] [place], [address] Basophils/100 WBC (Bld) 0.6 % Normal 0-1 [facility] Comment on above: Performed By: #### L 3890.6301, L3890.6102, L509.4006, L100.0100, L509.8002, BTS, L900.0098, L3890.6006 #### [facility] [address] [place], [address] Eosinophils/100 WBC (Bld) 1.0 % Normal 0-5 [facility] Comment on above: Performed By: #### L 3890.6301, L3890.6102, L509.4006, L100.0100, L509.8002, BTS, L900.0098, L3890.6006 #### [facility] [address] [place], [address] Erythrocyte distribution width (RBC) [Ratio] 12.7 % Normal 11.6-14.6 [facility] Comment on above: Performed By: #### L 3890.6301, L3890.6102, L509.4006, L100.0100, L509.8002, BTS, L900.0098, L3890.6006 #### [facility] [address] [place], [address] Hematocrit (Bld) [Volume fraction] 34.7 % Low 37-47 [facility] Comment on above: Performed By: #### L 3890.6301, L3890.6102, L509.4006, L100.0100, L509.8002, BTS, L900.0098, L3890.6006 #### [facility] [address] [place], [address] Hemoglobin (Bld) [Mass/Vol] 11.6 g/dL Low 12.0-15.0 [facility] Comment on above: Performed By: #### L 3890.6301, L3890.6102, L509.4006, L100.0100, L509.8002, BTS, L900.0098, L3890.6006 #### [facility] [address] [place], [address] IG% 1.700 High 0.0-0.9 [facility] Comment on above: Result Comment: IG% - Immature Granulocytes (promyelocytes, myelocytes and metamyelocytes) > 1% indicates that a LEFT SHIFT is Present. Performed By: #### L 3890.6301, L3890.6102, L509.4006, L100.0100, L509.8002, BTS, L900.0098, L3890.6006 #### [facility] [address] [place], [address] Lymphocytes/100 WBC (Bld) 25.2 % Normal 19-41 [facility] Comment on above: Performed By: #### L 3890.6301, L3890.6102, L509.4006, L100.0100, L509.8002, BTS, L900.0098, L3890.6006 #### [facility] [address] [place], [address] MCH (RBC) [Entitic mass] 29.1 pg Normal 27.0-32.0 [facility] Comment on above: Performed By: #### L 3890.6301, L3890.6102, L509.4006, L100.0100, L509.8002, BTS, L900.0098, L3890.6006 #### [facility] [address] [place], [address] MCHC (RBC) [Mass/Vol] 33.4 g/dL Normal 32-36 [facility] Comment on above: Performed By: #### L 3890.6301, L3890.6102, L509.4006, L100.0100, L509.8002, BTS, L900.0098, L3890.6006 #### [facility] [address] [place], [address] MCV (RBC) [Entitic vol] 87.2 fL Normal 81-99 [facility] Comment on above: Performed By: #### L 3890.6301, L3890.6102, L509.4006, L100.0100, L509.8002, BTS, L900.0098, L3890.6006 #### [facility] [address] [place], [address] Monocytes/100 WBC (Bld) 7.5 % Normal 0-10 [facility] Comment on above: Performed By: #### L 3890.6301, L3890.6102, L509.4006, L100.0100, L509.8002, BTS, L900.0098, L3890.6006 #### [facility] [address] [place], [address] Neutrophils/100 WBC (Bld) 64.0 % Normal 47-70 [facility] Comment on above: Performed By: #### L 3890.6301, L3890.6102, L509.4006, L100.0100, L509.8002, BTS, L900.0098, L3890.6006 #### [facility] [address] [place], [address] Nucleated RBC (Bld) [#/Vol] 0 10*3/uL Normal 0-5 [facility] Comment on above: Performed By: #### L 3890.6301, L3890.6102, L509.4006, L100.0100, L509.8002, BTS, L900.0098, L3890.6006 #### [facility] [address] [place], [address] Platelet mean volume (Bld) [Entitic vol] 9.2 fL Normal 6.2-12.0 [facility] Comment on above: Performed By: #### L 3890.6301, L3890.6102, L509.4006, L100.0100, L509.8002, BTS, L900.0098, L3890.6006 #### [facility] [address] [place], [address] Platelets (Bld) [#/Vol] 189 10*3/uL Normal 150-450 [facility] Comment on above: Performed By: #### L 3890.6301, L3890.6102, L509.4006, L100.0100, L509.8002, BTS, L900.0098, L3890.6006 #### [facility] [address] [place], [address] RBC (Bld) [#/Vol] 3.98 10*6/uL Low 4.2-5.4 [facility] Comment on above: Performed By: #### L 3890.6301, L3890.6102, L509.4006, L100.0100, L509.8002, BTS, L900.0098, L3890.6006 #### [facility] [address] [place], [address] RDW SD 40.1 fl Normal 35.1-43.9 [facility] Comment on above: Performed By: #### L 3890.6301, L3890.6102, L509.4006, L100.0100, L509.8002, BTS, L900.0098, L3890.6006 #### [facility] [address] [place], [address] WBC (Bld) [#/Vol] 8.4 10*3/uL Normal 4.4-11.0 [facility] Comment on above: Performed By: #### L 3890.6301, L3890.6102, L509.4006, L100.0100, L509.8002, BTS, L900.0098, L3890.6006 #### [facility] [address] [place], [address] Comprehensive Metabolic Prof ilon 04-08-2025 Albumin [Mass/Vol] 3.6 g/dL Normal 3.5-5.0 [facility] Comment on above: Performed By: #### L 3890.6301, L3890.6102, L509.4006, L100.0100, L509.8002, BTS, L900.0098, L3890.6006 #### [facility] [address] [place], [address] Albumin/Globulin [Mass ratio] 1.4 {ratio} Normal 0.9-2.4 [facility] Comment on above: Performed By: #### L 3890.6301, L3890.6102, L509.4006, L100.0100, L509.8002, BTS, L900.0098, L3890.6006 #### [facility] [address] [place], [address] ALK PHOS 102 U/L Normal 35-104 [facility] Comment on above: Performed By: #### L 3890.6301, L3890.6102, L509.4006, L100.0100, L509.8002, BTS, L900.0098, L3890.6006 #### [facility] [address] [place], [place], [id number] ALT [Catalytic activity/Vol] 12 U/L Normal <=34 [facility] Comment on above: Performed By: #### L 3890.6301, L3890.6102, L509.4006, L100.0100, L509.8002, BTS, L900.0098, L3890.6006 #### [facility] [address] [place], [place], [id number] AST [Catalytic activity/Vol] 19 U/L Normal <=31 [facility] Comment on above: Performed By: #### L 3890.6301, L3890.6102, L509.4006, L100.0100, L509.8002, BTS, L900.0098, L3890.6006 #### [facility] [address] [place], [address] Bilirubin [Mass/Vol] 0.20 mg/dL Normal 0.00-1.30 [facility] Comment on above: Performed By: #### L 3890.6301, L3890.6102, L509.4006, L100.0100, L509.8002, BTS, L900.0098, L3890.6006 #### [facility] [address] [place], [address] BUN/CRE 13.6 RATIO Normal 10-20 [facility] Comment on above: Performed By: #### L 3890.6301, L3890.6102, L509.4006, L100.0100, L509.8002, BTS, L900.0098, L3890.6006 #### [facility] [address] [place], [address] Calcium [Mass/Vol] 8.5 mg/dL Normal 7.6-11.0 [facility] Comment on above: Performed By: #### L 3890.6301, L3890.6102, L509.4006, L100.0100, L509.8002, BTS, L900.0098, L3890.6006 #### [facility] [address] [place], [address] Chloride [Moles/Vol] 103 mmol/L Normal 98-108 [facility] Comment on above: Performed By: #### L 3890.6301, L3890.6102, L509.4006, L100.0100, L509.8002, BTS, L900.0098, L3890.6006 #### [facility] [address] [place], [address] CO2 [Moles/Vol] 20.7 mmol/L Low 21.0-32.0 [facility] Comment on above: Performed By: #### L 3890.6301, L3890.6102, L509.4006, L100.0100, L509.8002, BTS, L900.0098, L3890.6006 #### [facility] [address] [place], [address] Creatinine [Mass/Vol] 0.51 mg/dL Low 0.70-1.20 [facility] Comment on above: Performed By: #### L 3890.6301, L3890.6102, L509.4006, L100.0100, L509.8002, BTS, L900.0098, L3890.6006 #### [facility] [address] [place], [address] GAP 11 Normal 5-15 [facility] Comment on above: Performed By: #### L 3890.6301, L3890.6102, L509.4006, L100.0100, L509.8002, BTS, L900.0098, L3890.6006 #### [facility] [address] [place], [address] GFR/1.73 sq M.predicted among non-blacks MDRD (S/P/Bld) [Vol rate/Area] 127 mL/min/{1.73_m2} Normal >60 [facility] Comment on above: Result Comment: mL/m in/1.73m2 CKD-EPI Creatinine Equation (2020) Performed By: #### L 3890.6301, L3890.6102, L509.4006, L100.0100, L509.8002, BTS, L900.0098, L3890.6006 #### [facility] [address] [place], [address] Globulin (S) [Mass/Vol] 2.6 g/dL Normal 2.2-4.2 [facility] Comment on above: Performed By: #### L 3890.6301, L3890.6102, L509.4006, L100.0100, L509.8002, BTS, L900.0098, L3890.6006 #### [facility] [address] [place], [address] Glucose [Mass/Vol] 75 mg/dL Normal 70-99 [facility] Comment on above: Performed By: #### L 3890.6301, L3890.6102, L509.4006, L100.0100, L509.8002, BTS, L900.0098, L3890.6006 #### [facility] [address] [place], [address] Potassium [Moles/Vol] 4.0 mmol/L Normal 3.3-5.1 [facility] Comment on above: Performed By: #### L 3890.6301, L3890.6102, L509.4006, L100.0100, L509.8002, BTS, L900.0098, L3890.6006 #### [facility] [address] [place], [address] Sodium [Moles/Vol] 135 mmol/L Normal 133-145 [facility] Comment on above: Performed By: #### L 3890.6301, L3890.6102, L509.4006, L100.0100, L509.8002, BTS, L900.0098, L3890.6006 #### [facility] [address] [place], [address] T PROT 6.2 g/dL Normal 5.9-8.4 [facility] Comment on above: Performed By: #### L 3890.6301, L3890.6102, L509.4006, L100.0100, L509.8002, BTS, L900.0098, L3890.6006 #### [facility] [address] [place], [address] Urea nitrogen [Mass/Vol] 7 mg/dL Normal 4-19 [facility] Comment on above: Performed By: #### L 3890.6301, L3890.6102, L509.4006, L100.0100, L509.8002, BTS, L900.0098, L3890.6006 #### [facility] [address] [place], [address] Trial Judge Office Visit Reporton 04-08-2025 Trial Judge Office Visit Report [facility] [address], [address] [place] [address] OFFICE VISIT Date of Service: 04/08/25 MR#: [id number] Acct: [id number] Name: SHIRA ARBOLEDA Rep #: [id number] : 1990 Provider: Dr. Dulce sanchez MD Age/Sex: 34/F [place] [facility] [place]: Signed with Addenda ADDENDUM by Bertha Harvey on 04/08/25 at 1351 Office Procedure Documentation entered by Bertha Harvey 04/08/25 13:51: Immunizations Boostrix Tdap 2.5 Lf unit-8 mcg-5 Lf/0.5 mL intramuscular syringe Performing Provider: Dulce Villar MD Performing Location: [facility] Administered by: Bertha Harvey on 04/08/25 13:50 Dose Route Admin Location Dispensed Lot Number Expiration Date Package NDC NDC [employer] Attacher 0.5 mL IM Right Deltoid 0.5 mL [id number] 03/07/27 74616-280-26 [id number] S [employer] VIS Given Date VIS Provided VIS Publication Date 04/08/25 Single Vaccine 24 Eligibility Eligibility Date Funding Source Not Applicable Date cc: * Signed Intake Vital Signs 01/29/25 08:45 03/23/25 10:00 04/05/25 11:27 04/08/25 13:03 Height 5 ft 5 in 5 ft 5 in 5 ft 5 in 5 ft 5 in Weight: 226 lb 9 oz BMI 37.7 BP 121/77 H Intake Visit Reasons: 30 WK OB Other Sports Coach Or Instructor Required: No Is patient in pain?: No Allergies Latex, Natural Rubber Allergy (Intermediate, Verified 04/08/25 13:02) Swelling amoxicillin Allergy (Verified 04/08/25 13:02) Hives naproxen (From Aleve) Allergy (Verified 04/08/25 13:02) Hives sulfamethoxazole (From Bactrim) Allergy (Verified 04/08/25 13:02) Hives trimethoprim (From Bactrim) Allergy (Verified 04/08/25 13:02) Hives Medications ???Medication ???Instructions ???Recorded ???Confirmed ???Type multivit-min no.71-iron fum 28 cap PO 10/22/24 04/08/25 History mg-folate no.1 1 mg-dha 300 mg capsule (PNV-[place]) hydroxyzine HCl 25 mg tablet 25 mg PO TID PRN anxiety #120 tabs 02/18/25 04/08/25 Rx fluoxetine 40 mg capsule 40 mg PO DAILY #30 caps 02/26/25 1 Rx Last Menstrual Period: 09/07/24 Zika: Zika virus screening: Negative : No PFSH PFSH Medical History Anxiety and depression Elective Dizziness Shortness of breath Hemorrhoid GERD (gastroesophageal reflux disease) Genital herpes Surgical History H/O wisdom tooth extraction S/P tonsillectomy H/O eye surgery Family History Grandfather Diabetes Heart disease Grandmother No problems noted. 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 current occupational exposures/hazards: No pets and animals: No history of recent travel: Yes ([place], [place], [place], [place]) out of state: Yes out of country: Yes sexually active: Yes Smoking Status: Never smoker alcohol intake: current alcohol intake frequency: holidays/special occasions only details: Not while substance use type: former substance user Date of last use: 6 months ago- gummies and marijuana well-balanced diet: daily or most days caffeine: No eating out: 1-3 times/week during the past year weight has: increased > 10 lbs what type of physical activity do you participate in: none naomi/zoroastrianism: None seatbelt use: always do you feel safe at home: Yes additional social history: FOB/BF - Chintan Ripple: [employer] History 5 Elective abortions 1 Hx Para 3 Spontaneous abortions Hx # Term Pregnancies 3 Ectopic pregnancies Hx # Pregnancies Multiple births # of living children 3 Past Pregnancies Del. Date Name GA/Weeks Outcome Route Bth Weight Infant Gen Labor Lgth Anesthesia Del Locatn Provider FOB 03/21/18 Justin 40 live - full term 9lbs 7oz Male epidural [facility] Natali Kilpatrick 06/12/19 Thakur-Goes by Tevin 40 live - full term 8lbs 8oz Male epidural [facility] Dr. Olena Kilpatrick 01/13/21 Isamar 40 live - full term 7lbs 6oz Female epidural [facility] Hafsa Kilpatrick 07/10/24 elective Delivery Date: 03/21/18 Last Updated by: Elvira Travis Prolonged labor, Oligo Delivery Date: 06/12/19 Last Updated by: Elvira Travis hypotension during labor HPI 30 WK OB Details: SHIRA ARBOLEDA is a 34 year old who presents for routine OB visit. OB Visit TIFFANY Calculator (more content not included)... Normal [facility] Protein+Creatinine Ratio,Uri neon 04-08-2025 PROT:CRE RATIO 96 mg/g CRE Normal 0-200 [facility] Comment on above: Performed By: #### L 3890.6301, L3890.6102, L509.4006, L100.0100, L509.8002, BTS, L900.0098, L3890.6006 #### [facility] [address] [place], [place], [id number] Protein (U) [Mass/Vol] 11.5 mg/dL Normal 0.0-12.0 [facility] Comment on above: Performed By: #### L 3890.6301, L3890.6102, L509.4006, L100.0100, L509.8002, BTS, L900.0098, L3890.6006 #### [facility] [address] [place], [address] UR CREAT 120.00 mg/dL Normal 28.00-217.00 [facility] Comment on above: Performed By: #### L 3890.6301, L3890.6102, L509.4006, L100.0100, L509.8002, BTS, L900.0098, L3890.6006 #### [facility] [address] [place], [address] 12 Lead EKGon 04-05-2025 12 Lead EKG [facility] Cardiovascular Services [address] [place] [address] 12 Lead EKG 04/05/25 1212 MR#: [id number] Acct: [id number] Name: SHIRA ARBOLEDA Rep #: [id number] : 1990 34 From: Anthony Jensen MD Attending Dr: Status: DEP ER Ordering Dr: Alejandro Gonzalez MD Date: 04/05/25 Location: ED Sex: F C Admitted: Test Reason : Blood Pressure : */* mmHG Vent. Rate : 96 BPM Atrial Rate : 96 BPM P-R Int : 136 ms QRS Dur : 74 ms QT Int : 360 ms P-R-T Axes : * 105 176 degrees QTcB Int : 454 ms Normal sinus rhythm Lateral infarct , age undetermined ST T wave abnormality, consider inferior ischemia Abnormal ECG Confirmed by ANTHONY JENSEN MD ([id number]), diet clerk DENISE ONEILL ([id number]) on 04/06/2025 8:03:54 AM Referred By: Confirmed By: ANTHONY JENSEN MD 04/06/25 0803 Date Anthony Jensen MD CC: Dr. Braulio Bosch MD; Dr. Alejandro Gonzalez MD Signed Normal [facility] AST(SGOT)Ordered By: Mary koroma on 04-05-2025 AST [Catalytic activity/Vol] 20 U/L Normal <=31 [facility] Comment on above: Performed By: #### L 3890.6301, L3890.6102, L509.4006, L100.0100, L509.8002, BTS, L900.0098, L3890.6006 #### [facility] [address] [place], [place], [id number] Absolute lymphocyte countOrd ered By: Alejandro Gonzalez on 04-05-2025 Lymphocytes Auto (Unsp spec) [#/Vol] 1.88 10*3/uL 0.83-4.51 [facility] Absolute neutrophil countOrd ered By: Alejandro Gonazlez on 04-05-2025 Neutrophils (Bld) [#/Vol] 5.6 10*3/uL 2.0-7.7 [facility] Anion gap in Serum or Plasma Ordered By: Alejandro Gonzalez on 04-05-2025 Anion gap [Moles/Vol] 12 mmol/L 5-15 [facility] Automated blood erythrocyte countOrdered By: Mayr Madrigal on 04-05-2025 RBC (Bld) [#/Vol] 3.94 10*6/uL Low 4.2-5.4 [facility] Comment on above: Performed By: #### L 3890.6301, L3890.6102, L509.4006, L100.0100, L509.8002, BTS, L900.0098, L3890.6006 #### [facility] [address] [place], [place], [id number] Automated blood hematocrit ( percentage)Ordered By: Mary Madrigal on 04-05-2025 Hematocrit (Bld) [Volume fraction] 35.0 % Low 37-47 [facility] Comment on above: Performed By: #### L 3890.6301, L3890.6102, L509.4006, L100.0100, L509.8002, BTS, L900.0098, L3890.6006 #### [facility] [address] [place], [address] Automated lymphocyte count a s percentage of total leukocytesOrdered By: Alejandro Gonzalez on 04-05-2025 Lymphocytes/100 WBC Auto (Unsp spec) 22.7 % [facility] BUN/creatinine ratioOrdered By: Alejandro Gonzalez on 04-05-2025 Urea nitrogen/Creatinine [Mass ratio] 15.8 mg/mg 04-26 [facility] Basic Metabolic Profile (BMP )on 04-05-2025 BUN/CRE 15.8 RATIO Normal 04-26 [facility] Comment on above: Performed By: #### L 3890.6301, L3890.6102, L509.4006, L100.0100, L509.8002, BTS, L900.0098, L3890.6006 #### [facility] [address] [place], [address] Calcium [Mass/Vol] 8.3 mg/dL Normal 7.6-11.0 [facility] Comment on above: Performed By: #### L 3890.6301, L3890.6102, L509.4006, L100.0100, L509.8002, BTS, L900.0098, L3890.6006 #### [facility] [address] [place], [address] Chloride [Moles/Vol] 103 mmol/L Normal 98-108 [facility] Comment on above: Performed By: #### L 3890.6301, L3890.6102, L509.4006, L100.0100, L509.8002, BTS, L900.0098, L3890.6006 #### [facility] [address] [place], [address] CO2 [Moles/Vol] 20.6 mmol/L Low 21.0-32.0 [facility] Comment on above: Performed By: #### L 3890.6301, L3890.6102, L509.4006, L100.0100, L509.8002, BTS, L900.0098, L3890.6006 #### [facility] [address] [place], [address] Creatinine [Mass/Vol] 0.50 mg/dL Low 0.70-1.20 [facility] Comment on above: Performed By: #### L 3890.6301, L3890.6102, L509.4006, L100.0100, L509.8002, BTS, L900.0098, L3890.6006 #### [facility] [address] [place], [place], [id number] ECRCL 190.00 ml/min Normal 50-250 [facility] Comment on above: Performed By: #### L 3890.6301, L3890.6102, L509.4006, L100.0100, L509.8002, BTS, L900.0098, L3890.6006 #### [facility] [address] [place], [address] GAP 12 Normal 5-15 [facility] Comment on above: Performed By: #### L 3890.6301, L3890.6102, L509.4006, L100.0100, L509.8002, BTS, L900.0098, L3890.6006 #### [facility] [address] [place], [address] GFR/1.73 sq M.predicted among non-blacks MDRD (S/P/Bld) [Vol rate/Area] 127 mL/min/{1.73_m2} Normal >60 [facility] Comment on above: Result Comment: mL/m in/1.73m2 CKD-EPI Creatinine Equation (2020) Performed By: #### L 3890.6301, L3890.6102, L509.4006, L100.0100, L509.8002, BTS, L900.0098, L3890.6006 #### [facility] [address] [place], [address] Glucose [Mass/Vol] 84 mg/dL Normal 70-99 [facility] Comment on above: Performed By: #### L 3890.6301, L3890.6102, L509.4006, L100.0100, L509.8002, BTS, L900.0098, L3890.6006 #### [facility] [address] [place], [address] Potassium [Moles/Vol] 4.1 mmol/L Normal 3.3-5.1 [facility] Comment on above: Result Comment: Hemo lysis present, Results??could be affected. ?? Performed By: #### L 3890.6301, L3890.6102, L509.4006, L100.0100, L509.8002, BTS, L900.0098, L3890.6006 #### [facility] [address] [place], [address] Sodium [Moles/Vol] 135 mmol/L Normal 133-145 [facility] Comment on above: Performed By: #### L 3890.6301, L3890.6102, L509.4006, L100.0100, L509.8002, BTS, L900.0098, L3890.6006 #### [facility] [address] [place], [address] Urea nitrogen [Mass/Vol] 8 mg/dL Normal 4-19 [facility] Comment on above: Performed By: #### L 3890.6301, L3890.6102, L509.4006, L100.0100, L509.8002, BTS, L900.0098, L3890.6006 #### [facility] [address] [place], [address] Basophil percentageOrdered B y: Alejandro Gonzalez on 04-05-2025 Basophils/100 WBC (Bld) 0.6 % 0-1 [facility] CBC W/Diff, Automatedon 03-09 Absolute Lymph 1.88 X10 3/uL Normal 0.83-4.51 [facility] Comment on above: Performed By: #### L 3890.6301, L3890.6102, L509.4006, L100.0100, L509.8002, BTS, L900.0098, L3890.6006 #### [facility] [address] [place], [address] Absolute Neut 5.6 X10 3/uL Normal 2.0-7.7 [facility] Comment on above: Performed By: #### L 3890.6301, L3890.6102, L509.4006, L100.0100, L509.8002, BTS, L900.0098, L3890.6006 #### [facility] [address] [place], [address] Basophils/100 WBC (Bld) 0.6 % Normal 0-1 [facility] Comment on above: Performed By: #### L 3890.6301, L3890.6102, L509.4006, L100.0100, L509.8002, BTS, L900.0098, L3890.6006 #### [facility] [address] [place], [address] Eosinophils/100 WBC (Bld) 0.8 % Normal 0-5 [facility] Comment on above: Performed By: #### L 3890.6301, L3890.6102, L509.4006, L100.0100, L509.8002, BTS, L900.0098, L3890.6006 #### [facility] [address] [place], [address] Erythrocyte distribution width (RBC) [Ratio] 12.6 % Normal 11.6-14.6 [facility] Comment on above: Performed By: #### L 3890.6301, L3890.6102, L509.4006, L100.0100, L509.8002, BTS, L900.0098, L3890.6006 #### [facility] [address] [place], [address] Hematocrit (Bld) [Volume fraction] 32.3 % Low 37-47 [facility] Comment on above: Performed By: #### L 3890.6301, L3890.6102, L509.4006, L100.0100, L509.8002, BTS, L900.0098, L3890.6006 #### [facility] [address] [facility], [address] Hemoglobin (Bld) [Mass/Vol] 11.0 g/dL Low 12.0-15.0 [facility] Comment on above: Performed By: #### L 3890.6301, L3890.6102, L509.4006, L100.0100, L509.8002, BTS, L900.0098, L3890.6006 #### [facility] [address] [place], [address] IG% 2.500 High 0.0-0.9 [facility] Comment on above: Result Comment: IG% - Immature Granulocytes (promyelocytes, myelocytes and metamyelocytes) > 1% indicates that a LEFT SHIFT is Present. Performed By: #### L 3890.6301, L3890.6102, L509.4006, L100.0100, L509.8002, BTS, L900.0098, L3890.6006 #### [facility] [address] [place], [address] Lymphocytes/100 WBC (Bld) 22.7 % Normal 19-41 [facility] Comment on above: Performed By: #### L 3890.6301, L3890.6102, L509.4006, L100.0100, L509.8002, BTS, L900.0098, L3890.6006 #### [facility] [address], [address] MCH (RBC) [Entitic mass] 30.0 pg Normal 27.0-32.0 [facility] Comment on above: Performed By: #### L 3890.6301, L3890.6102, L509.4006, L100.0100, L509.8002, BTS, L900.0098, L3890.6006 #### [facility] [address] [place], [address] MCHC (RBC) [Mass/Vol] 34.1 g/dL Normal 32-36 [facility] Comment on above: Performed By: #### L 3890.6301, L3890.6102, L509.4006, L100.0100, L509.8002, BTS, L900.0098, L3890.6006 #### [facility] [address] [place], [address] MCV (RBC) [Entitic vol] 88.0 fL Normal 81-99 [facility] Comment on above: Performed By: #### L 3890.6301, L3890.6102, L509.4006, L100.0100, L509.8002, BTS, L900.0098, L3890.6006 #### [facility] [address] [place], [address] Monocytes/100 WBC (Bld) 6.3 % Normal 0-10 [facility] Comment on above: Performed By: #### L 3890.6301, L3890.6102, L509.4006, L100.0100, L509.8002, BTS, L900.0098, L3890.6006 #### [facility] [address] [place], [address] Neutrophils/100 WBC (Bld) 67.1 % Normal 47-70 [facility] Comment on above: Performed By: #### L 3890.6301, L3890.6102, L509.4006, L100.0100, L509.8002, BTS, L900.0098, L3890.6006 #### [facility] [address] [place], [address] Nucleated RBC (Bld) [#/Vol] 0 10*3/uL Normal 0-5 [facility] Comment on above: Performed By: #### L 3890.6301, L3890.6102, L509.4006, L100.0100, L509.8002, BTS, L900.0098, L3890.6006 #### [facility] [address] [facility] [place], [address] Platelet mean volume (Bld) [Entitic vol] 9.2 fL Normal 6.2-12.0 [facility] Comment on above: Performed By: #### L 3890.6301, L3890.6102, L509.4006, L100.0100, L509.8002, BTS, L900.0098, L3890.6006 #### [facility] [address] [place], [address] Platelets (Bld) [#/Vol] 160 10*3/uL Normal 150-450 [facility] Comment on above: Performed By: #### L 3890.6301, L3890.6102, L509.4006, L100.0100, L509.8002, BTS, L900.0098, L3890.6006 #### [facility] [address] [place], [address] RBC (Bld) [#/Vol] 3.67 10*6/uL Low 4.2-5.4 [facility] Comment on above: Performed By: #### L 3890.6301, L3890.6102, L509.4006, L100.0100, L509.8002, BTS, L900.0098, L3890.6006 #### [facility] [address] [place], [address] RDW SD 40.2 fl Normal 35.1-43.9 [facility] Comment on above: Performed By: #### L 3890.6301, L3890.6102, L509.4006, L100.0100, L509.8002, BTS, L900.0098, L3890.6006 #### [facility] [address] [place], [place], [id number] WBC (Bld) [#/Vol] 8.3 10*3/uL Normal 4.4-11.0 [facility] Comment on above: Performed By: #### L 3890.6301, L3890.6102, L509.4006, L100.0100, L509.8002, BTS, L900.0098, L3890.6006 #### [facility] [address] [place], [place], [id number] CBC-Complete Blood Cnt No Di ffon 04-05-2025 RDW SD 40.8 fl Normal 35.1-43.9 [facility] Comment on above: Performed By: #### L 3890.6301, L3890.6102, L509.4006, L100.0100, L509.8002, BTS, L900.0098, L3890.6006 #### [facility] [address] [place], [place], [id number] CTA Chest W/WO Contraston CTA Chest W/WO Contrast [facility] Imaging Services [address] [place], [place] [id number] CTA Chest W/WO Contrast MR#: [id number] Acct: [id number] Name: SHIRA ARBOLEDA Rep #: [id number] : 1990 F 34 From: Katarina Purvis MD PCP: Dr. Braulio Bosch MD Status: REG ER Study: CTA Chest W/WO Contrast Date of Exam: 04/05/25 Exam# [id number] Ordering Dr: Alejandro Gonzalez MD PROCEDURE: CTA CHEST W/WO CONTRAST 04/05/2025 REASON FOR EXAM: SHIELD ABD . CP Dizzy shortness of breath TECHNIQUE: Procedure Code: CTCTACHWW Modality: CT Procedure: CTA CHEST W/WO CONTRAST Multiplanar Sagittal and Coronal images were obtained. CONTRAST: Isovue 370 VOLUME: 100 mL One or more dose reduction techniques were used (e.g., Automated exposure control, adjustment of the mA and/or kV according to patient size, use of iterative reconstruction technique). RADIATION DOSE SUMMARY: CTDlvol: 14.6 mGy DLP: 418 mGycm COMPARISON: None FINDINGS: Thoracic Aorta: Unremarkable. Heart: Unremarkable. Pulmonary Vessels: There is no filling defect demonstrated in the pulmonary arterial trunk or outflow tract. Hardware: None Lymph nodes: None Lungs and Airways: Lungs are clear. Pleura: Unremarkable. Upper Abdomen: Unremarkable. Bones: Unremarkable. CT/CTA Chest W/WO Contrast IMPRESSION: There is no evidence of pulmonary embolus within the pulmonary artery or outflow track. Unremarkable exam. Reading Location: [place] [address] CC: Dr. Braulio Bosch MD; Dr. Alejandro Gonzalez MD Director Occupational: Signed Normal [facility] Carbon dioxide, total [Moles /volume] in Central venous bloodOrdered By: Alejandro Gonzalez on 04-05-2025 CO2 [Moles/Vol] 20.6 mmol/L Low 21.0-32.0 [facility] Chest PA and Lateralon 04-05 Chest PA and Lateral [facility] Imaging Services [address], [place] [address] Chest PA and Lateral MR#: [id number] Acct: [id number] Name: SHIRA ARBOLEDA [place] Rep #: [id number] : 1990 F 34 From: Katarina Purvis MD PCP: Dr. Braulio Bosch MD Status: REG ER Study: Chest PA and Lateral Date of Exam: 04/05/25 Exam# [id number] Ordering Dr: Alejandro Gonzalez MD PROCEDURE: CHEST PA AND LATERAL 04/05/2025 REASON FOR EXAM: CHEST PAIN TECHNIQUE: Procedure Code: RADCXR Modality: DX Procedure: CHEST PA AND LATERAL COMPARISON: 07/03/2022 FINDINGS: Cardiomediastinal silhouette pulmonary vasculature and bony thorax are within normal limits. No focal infiltrates or effusion. RAD/Chest PA and Lateral IMPRESSION: No radiographic evidence of acute cardiopulmonary disease. Reading Location: [place] [address] CC: Dr. Braulio Bosch MD; Dr. Alejandro Gonzalez MD Director Occupational: Signed Normal [facility] Chloride assayOrdered By: Deion Gonzalez on 04-05-2025 Chloride [Moles/Vol] 103 mmol/L 98-108 [facility] D-Dimer Quantitative (DVT/PE )on 04-05-2025 D-DIMER QUANT 0.66 FEU/ug/m Invalid Interpretation Code 0.27-0.49 [facility] Comment on above: Result Comment: D-Di otf ELEVATED (>0.49): Additional studies and clinical assessments are indicated to conclude diagnosis of: Deep Vein Thrombosis (DVT) or Pulmonary Embolism (PE) CRITICAL VALUE CALLED TO MARQUEZ 04/05/25 Marv6 Treasure Orozco. RESULTS READ BACK BY SAME. Performed By: #### L 300.8000 #### [facility] [address] [place], [address] Electrocardiogram reportOrde red By: Anthony Jensen on 04-05-2025 EKG study [facility] Cardiovascular Services [address] [place] [address] 12 Lead EKG 04/05/25 1212 MR#: [id number] Acct: [id number] Name: SHIRA ARBOLEDA ALEXANDRACOURTNEY Rep #:[id number] : 1990 34 From: Anthony Jensen MD Attending Dr: Status: DEP E R Ordering Dr: Alejandro Gonzalez MD Date: Location: ED Sex: F C Admitted: Test Reason : Blood Pressure : */* mmHG Vent. Rate : 96 BPM Atrial Rate : 96 BPM P-R Int : 136 ms QRS Dur : 74 ms QT Int : 360 ms P-R-T Axes : * 105 176 degrees QTcB Int : 454 ms Normal sinus rhythm Lateral infarct , age undetermined ST & T wave abnormality, consider inferior ischemia Abnormal ECG Confirmed by ANTHONY JENSEN MD ([id number]), diet clerk DENISE ONEILL ([id number]) on 58:03:54 AM Referred By: Confirmed By: ANTHONY JENSEN MD 04/06/25 0803 Date _ Anthony Jensen MD CC: Dr. Braulio Bocsh MD; Dr. Alejandro Gonzalez MD ~ Signed [facility] Other Phone: Emergency Department Summary on 04-05-2025 Emergency Department Summary [facility] Medical Records Department [address] [place] [address] Emergency Department Summary 04/05/25 MR#: [id number] Acct: [id number] Name: SHIRA ARBOLEDA Rep #: [id number] : 1990 34 From: Alejandro Gonzalez MD PCP: Dr. Braulio Bosch MD Status:DEP ER Location: ED HPI History of Present Illness Chief Complaint: Dizziness Informant: patient Onset/Context/Timing Onset: Today and Yesterday Context: Gradual Onset Timing: Intermittent Current Severity: Mild Maximum Severity: Mild Narrative Narrative: 34-year-old female currently 30 weeks . G4, P3 and Ab0. States that she was already seen in labor delivery today. They sent her down she was complaining of dizziness and says she was having Ilan Amato contractions. Atypical chest pain. Denies any cardiac history. No history of DVT or PE. No hemoptysis. No pleuritic pain. No leg pain or swelling. She does have a history of anxiety and states it feels like she is going to have an anxiety attack. She denies any vaginal bleeding. No dysuria. No fever or cough. No shortness of breath. Prior similar symptoms: Yes Recent Illness/Hospitalization: No PFSH PFS Medical History Anxiety and depression Elective Dizziness Shortness of breath Hemorrhoid GERD (gastroesophageal reflux disease) Genital herpes Home Medications ???Medication ???Instructions ???Recorded ???Last Taken ???Type multivit-min no.71-iron fum 28 cap PO 10/22/24 04/05/25 History mg-folate no.1 1 mg-dha 300 mg capsule (PNV-[place]) hydroxyzine HCl 25 mg tablet 25 mg PO TID PRN anxiety #120 tabs 02/18/25 Unknown Rx fluoxetine 40 mg capsule 40 mg PO DAILY #30 caps 02/26/25 U nknown Rx Allergy/AdvReac Type Severity Reaction Status Date / Time Latex, Natural Rubber Allergy Intermediate Swelling Verified 04/05/25 11:27 amoxicillin Allergy Hives Verified 04/05/25 11:27 naproxen (From Aleve) Allergy Hives Verified 04/05/25 11:27 sulfamethoxazole (From Allergy Hives Verified 04/05/25 11:27 Bactrim) trimethoprim (From Bactrim) Allergy Hives Verified 04/05/25 11:27 Family History Grandfather Diabetes Heart disease Grandmother No problems noted. 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 current occupational exposures/hazards: No pets and animals: No history of recent travel: Yes ([place], [place], [place], [place]) out of state: Yes out of country: Yes sexually active: Yes Smoking Status: Never smoker alcohol intake: current alcohol intake frequency: holidays/special occasions only details: Not while substance use type: former substance user Date of last use: 6 months ago- gummies and marijuana well-balanced diet: daily or most days caffeine: No eating out: 1-3 times/week during the past year weight has: increased > 10 lbs what type of physical activity do you participate in: none naomi/zoroastrianism: None seatbelt use: always do you feel safe at home: Yes additional social history: FOB/BF - Chintan 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 Constitutional Constitutional ED: Denies chills or fever(s) Eyes Eyes: Denies blurry vision ENT ENT ED: Denies ear pain Cardiovascular Cardiovascular: Reports chest pain and palpitations Respiratory/Chest Respiratory/Chest: Denies cough or dyspnea Gastrointestinal Gastrointestinal: Denies abdominal pain, diarrhea or vomiting Genitourinary Genitourinary ED: Denies dysuria or hematuria Musculoskeletal Musculoskeletal: Denies arthralgias or back pain Integumentary Denies abscess or Abrasions Neurologic Neurologic: Denies headache(s) Psychiatric Psychiatric: Reports anxiety Endocrine Endocrinology: Denies cold intolerance Hematologic/Lymphatic Hematologic/Lymphatic: Reports none Allergic/Immunologic Allergic/Immunologic ED: Denies mouth swelling, tongue swelling, urticaria or other EXAM Physical Exam Narrative Exam Narrative: Well-appearing 34-year-old female. Vital signs stable afebrile does not look septic toxic no acute distress. Mildly anxious. Pulse ox 97% room air no hypoxia. H EENT exam pupils round react light. Moist mutes members. Neck nontender no JVD. No lymphadenopathy. Lungs clear to auscultation bilaterally. Heart regular rhythm (more content not included)... Normal [facility] Eosinophil percentageOrdered By: Alejandro Gonzalez on 04-05-2025 Eosinophils/100 WBC (Bld) 0.8 % 0-5 [facility] Erythrocyte distribution wid th ratioOrdered By: Alejandro Gonzalez on 04-05-2025 Erythrocyte distribution width (RBC) [Ratio] 12.6 % 11.6-14.6 [facility] Erythrocyte distribution wid th ratioOrdered By: Mary Madrigal on 04-05-2025 Erythrocyte distribution width (RBC) [Ratio] 12.5 % Normal 11.6-14.6 [facility] Comment on above: Performed By: #### L 3890.6301, L3890.6102, L509.4006, L100.0100, L509.8002, BTS, L900.0098, L3890.6006 #### [facility] [address] [place], [place], [id number] Erythrocyte distribution wid th standard deviationOrdered By: Alejandro Gonzalez on 04-05-2025 Erythrocyte distribution width (RBC) [Ratio] 40.2 fl 35.1-43.9 [facility] Erythrocyte distribution wid th standard deviationOrdered By: Mary Madrigal on 04-05-2025 Erythrocyte distribution width (RBC) [Ratio] 40.8 fl 35.1-43.9 [facility] Glomerular filtration rate ( GFR) estimation/1.73 sq m using serum, plasma, or whole bOrdered By: Alejandro Gonzalez on 04-05-2025 GFR/1.73 sq M.predicted among non-blacks MDRD (S/P/Bld) [Vol rate/Area] 127 mL/min/{1.73_m2} >60 [facility] Comment on above: mL/min/1.73m2 CKD-EP I Creatinine Equation (2020) Glomerular filtration rate ( GFR) estimation/1.73 sq m using serum, plasma, or whole bOrdered By: Mary Madrigal on 04-05-2025 GFR/1.73 sq M.predicted among non-blacks MDRD (S/P/Bld) [Vol rate/Area] 124 mL/min/{1.73_m2} Normal >60 [facility] Comment on above: mL/min/1.73m2 CKD-EP I Creatinine Equation (2020) Result Comment: mL/m in/1.73m2 CKD-EPI Creatinine Equation (2020) Performed By: #### L 3890.6301, L3890.6102, L509.4006, L100.0100, L509.8002, BTS, L900.0098, L3890.6006 #### [facility] [address] [place], [place], [id number] Hematocrit Auto (Bld) [Volum e fraction]Ordered By: Alejandro Gonzalez on 04-05-2025 Hematocrit (Bld) [Volume fraction] 32.3 % Low 37-47 [facility] Hemoglobin measurementOrdere d By: Alejandro Gonzalez on 04-05-2025 Hemoglobin (Bld) [Mass/Vol] 11.0 g/dL Low 12.0-15.0 [facility] Hemoglobin measurementOrdere d By: Mary Madrigal on 04-05-2025 Hemoglobin (Bld) [Mass/Vol] 11.5 g/dL Low 12.0-15.0 [facility] Comment on above: Performed By: #### L 3890.6301, L3890.6102, L509.4006, L100.0100, L509.8002, BTS, L900.0098, L3890.6006 #### [facility] [address] [place], [address] Immature granulocytes/100 WB C Auto (Bld)Ordered By: Alejandro Gonzalez on 04-05-2025 Immature granulocytes/100 WBC (Bld) 2.500 % High 0.0-0.9 [facility] Comment on above: IG% - Immature Granu locytes (promyelocytes, myelocytes and metamyelocytes) > 1% indicates that a LEFT SHIFT is Present. L501.4021on 04-05-2025 Trop T High Sen < 6 Normal <=14 [facility] Comment on above: Performed By: #### L 3890.6301, L3890.6102, L509.4006, L100.0100, L509.8002, BTS, L900.0098, L3890.6006 #### [facility] [address] [place], [address] MCV (mean corpuscular volume ) determinationOrdered By: Alejandro Gonzalez on 04-05-2025 MCV (RBC) [Entitic vol] 88.0 fL 81-99 [facility] MCV (mean corpuscular volume ) determinationOrdered By: Mary Madrigal on 04-05-2025 MCV (RBC) [Entitic vol] 88.8 fL Normal 81-99 [facility] Comment on above: Performed By: #### L 3890.6301, L3890.6102, L509.4006, L100.0100, L509.8002, BTS, L900.0098, L3890.6006 #### [facility] [address] [place], [place], [id number] Mean corpuscular hemoglobin (MCH) determinationOrdered By: Alejandro Gonzalez on 04-05-2025 MCH (RBC) [Entitic mass] 30.0 pg 27.0-32.0 [facility] Mean corpuscular hemoglobin (MCH) determinationOrdered By: Mary Madrigal on 04-05-2025 MCH (RBC) [Entitic mass] 29.2 pg Normal 27.0-32.0 [facility] Comment on above: Performed By: #### L 3890.6301, L3890.6102, L509.4006, L100.0100, L509.8002, BTS, L900.0098, L3890.6006 #### [facility] [address] [place], [address] Mean corpuscular hemoglobin concentration (MCHC) determinationOrdered By: Alejandro Gonzalez on 04-05-2025 MCHC (RBC) [Mass/Vol] 34.1 g/dL 32-36 [facility] Mean corpuscular hemoglobin concentration (MCHC) determinationOrdered By: Mary Madrigal on 04-05-2025 MCHC (RBC) [Mass/Vol] 32.9 g/dL Normal 32-36 [facility] Comment on above: Performed By: #### L 3890.6301, L3890.6102, L509.4006, L100.0100, L509.8002, BTS, L900.0098, L3890.6006 #### [facility] [address] [place], [address] Mean platelet volume determi nationOrdered By: Alejandro Gonzalez on 04-05-2025 Platelet mean volume (Bld) [Entitic vol] 9.2 fL 6.2-12.0 [facility] Mean platelet volume determi nationOrdered By: Mary Madrigal on 04-05-2025 Platelet mean volume (Bld) [Entitic vol] 8.8 fL Normal 6.2-12.0 [facility] Comment on above: Performed By: #### L 3890.6301, L3890.6102, L509.4006, L100.0100, L509.8002, BTS, L900.0098, L3890.6006 #### [facility] [address] [facility] [place], [address] Monocyte percentageOrdered B y: Alejandro Gonzalez on 04-05-2025 Monocytes/100 WBC (Bld) 6.3 % 0-10 [facility] Neutrophil percentageOrdered By: Alejandro Gonzalez on 04-05-2025 Neutrophils/100 WBC (Bld) 67.1 % 47-70 [facility] Nucleated red blood cell per centageOrdered By: Alejandro Gonzalez on 04-05-2025 Nucleated RBC/100 WBC (Bld) [Ratio] 0 % 0-5 [facility] OB Triage Progress Noteon OB Triage Progress Note [facility] Medical Records Department [address] [place] [address] OB Triage Progress Note 04/05/25 1046 MR#: [id number] Acct: [id number] Name: SHIRA ARBOLEDA Rep #: [id number] : 1990 34 From: Mary Madrigal CNM PCP: Dr. Braulio oBsch MD Status:DEP CLI Y DOS: Location: WPOUT Progress Notes Progress Note: Patient presents for triage evaluation secondary to shortness of breath and blurred vision. FHT: 135 Moderate variability reactive no decelerations category I tracing [place]: irregular mild Contractions Assessment and plan: pre e labs and normal BP, Reactive NST, reassuring maternal and status patient to ER for evaluation of shortness of breath. See problem list details for additional plan information. Charges/Coding Multi Select Codes Urinary/Genital Urinary/Genital CPT Codes: 23296-16 non-stress test Interp Assessment Plan (1) Blurred vision: COMMENT: normal BP and pre e labs. PLAN: ER for evaluation of SOB (2) Anxiety and depression: COMMENT: see counselor; katty (3) GBS (group B streptococcus) UTI complicating : QUALIFIERS: Trimester: third trimester Qualified Code(s): O23.43 - Unspecified infection of urinary tract in , third trimester; B95.1 - Streptococcus, group B, as the cause of diseases classified elsewhere COMMENT: PCN in labor (4) : QUALIFIERS: Weeks of gestation: 28 weeks Qualified Code(s): Z3A.28 - 28 weeks gestation of COMMENT: LR NIPT. declined carrier, normal anatomy (5) Supervision of high-risk : QUALIFIERS: Trimester: third trimester Qualified Code(s): O09.93 - Supervision of high risk , unspecified, third trimester COMMENT: PRR , ITFFANY 06/14/25, girl Teresa GEOVANY Tevin Anderson Isamar, Partner Chintan (6) History of marijuana use: COMMENT: Gummies last used 05/31, discussed random tox screens during (7) Hx of depression, currently : (8) FH: cleft lip and palate: COMMENT: Brother 04/05/25 1411 Date Mary Patterson Signature (if applicable): Date CC: SMITA Madrigal; Dr. Braulio Bosch MD Signed Normal [facility] Platelet countOrdered By: Deion Gonzalez on 04-05-2025 Platelets (Bld) [#/Vol] 160 10*3/uL 150-450 [facility] Platelet countOrdered By: Vishnu Madrigal on 04-05-2025 Platelets (Bld) [#/Vol] 166 10*3/uL Normal 150-450 [facility] Comment on above: Performed By: #### L 3890.6301, L3890.6102, L509.4006, L100.0100, L509.8002, BTS, L900.0098, L3890.6006 #### [facility] [address] [place], [address] Potassium measurement (mass/ volume)Ordered By: Alejandro Gonazlez on 04-05-2025 Potassium (Unsp spec) [Mass/Vol] 4.1 mmol/L 3.3-5.1 [facility] Comment on above: Hemolysis present, R esults could be affected. Protein+Creatinine Ratio,Uri neon 04-05-2025 PROT:CRE RATIO 242 mg/g CRE High 0-200 [facility] Comment on above: Performed By: #### L 3890.6301, L3890.6102, L509.4006, L100.0100, L509.8002, BTS, L900.0098, L3890.6006 #### [facility] [address] [place], [address] UR CREAT 38.60 mg/dL Normal 28.00-217.00 [facility] Comment on above: Performed By: #### L 3890.6301, L3890.6102, L509.4006, L100.0100, L509.8002, BTS, L900.0098, L3890.6006 #### [facility] [address] [place], [address] RBC Auto (Bld) [#/Vol]Ordere d By: Alejandro Gonzalez on 04-05-2025 RBC (Bld) [#/Vol] 3.67 10*6/uL Low 4.2-5.4 [facility] Random urine creatinine chaitanya urement (mass/volume)Ordered By: Mary Madrigal on 04-05-2025 Creatinine Unsp time (U) [Mass/Vol] 38.60 mg/dL 28.00-217.00 [facility] Serum Creatinine AND GFRon 0 04-05-2025 ECRCL 172.72 ml/min Normal 50-250 [facility] Comment on above: Performed By: #### L 3890.6301, L3890.6102, L509.4006, L100.0100, L509.8002, BTS, L900.0098, L3890.6006 #### [facility] [address] [place], [place], [id number] Serum creatinine measurement (mass/volume)Ordered By: Alejandro Gonzalez on 04-05-2025 Creatinine [Mass/Vol] 0.50 mg/dL Low 0.70-1.20 [facility] Serum creatinine measurement (mass/volume)Ordered By: Mary Madrigal on 04-05-2025 Creatinine [Mass/Vol] 0.55 mg/dL Low 0.70-1.20 [facility] Comment on above: Performed By: #### L 3890.6301, L3890.6102, L509.4006, L100.0100, L509.8002, BTS, L900.0098, L3890.6006 #### [facility] [address] [place], [place], [id number] Serum glucose measurement (m ass/volume)Ordered By: Alejandro Gonzalez on 04-05-2025 Glucose [Mass/Vol] 84 mg/dL 70-99 [facility] Serum or plasma alanine dey otransferase (ALT) measurementOrdered By: Mary Madrigal on 04-05-2025 ALT [Catalytic activity/Vol] 13 U/L Normal <=34 [facility] Comment on above: Performed By: #### L 3890.6301, L3890.6102, L509.4006, L100.0100, L509.8002, BTS, L900.0098, L3890.6006 #### [facility] [address] [facility] [place], [place], [id number] Serum or plasma calcium chaitanya urement (mass/volume)Ordered By: Alejandro Gonzalez on 04-05-2025 Calcium [Mass/Vol] 8.3 mg/dL 7.6-11.0 [facility] Serum or plasma urea nitroge n measurement (mass/volume)Ordered By: Alejandro Gonzalez on 04-05-2025 Urea nitrogen [Mass/Vol] 8 mg/dL 4-19 [facility] Serum or plasma uric acid me asurement (mass/volume)Ordered By: Mary Madrigal on 04-05-2025 Urate [Mass/Vol] 4.5 mg/dL 2.6-6.0 [facility] Comment on above: The drugs N-Acetylcy steine and Metamizole may falsely depress this assay. Sodium levelOrdered By: Alejandro Gonzalez on 04-05-2025 Sodium [Moles/Vol] 135 mmol/L 133-145 [facility] Troponin T HS 2 HRon 025 Trop T High Sen < 6 Normal <=14 [facility] Comment on above: Performed By: #### L 499.0042 #### [facility] [address] [facility] [place], [place], [id number] Troponin T HS 4 HRon 025 Trop T High Sen Normal <=14 [facility] Comment on above: Result Comment: Chico howell via OM: Ordered Performed By: #### L 3890.6301, L3890.6102, L509.4006, L100.0100, L509.8002, BTS, L900.0098, L3890.6006 #### [facility] [address] [facility] [place], [place], [address] Troponin T.cardiac [Mass/vol ume] in Serum or Plasma by High sensitivity methodOrdered By: Alejandro Gonzalez on 04-05-2025 Troponin T.cardiac High sensitivity method [Mass/Vol] < 6 ng/L <14 [facility] Troponin T.cardiac High sensitivity method [Mass/Vol] < 6 ng/L <14 [facility] Uric Acidon 04-05-2025 URIC 4.5 mg/dL Normal 2.6-6.0 [facility] Comment on above: Result Comment: The drugs N-Acetylcysteine and Metamizole may falsely depress this assay. Performed By: #### L 3890.6301, L3890.6102, L509.4006, L100.0100, L509.8002, BTS, L900.0098, L3890.6006 #### [facility] [address] [place], [place], [address] Urine protein measurement (m ass/volume)Ordered By: Mary Madrigal on 04-05-2025 Protein (U) [Mass/Vol] 9.3 mg/dL Normal 0.0-12.0 [facility] Comment on above: Performed By: #### L 3890.6301, L3890.6102, L509.4006, L100.0100, L509.8002, BTS, L900.0098, L3890.6006 #### [facility] [address] [place], [place], [id number] Urine protein/creatinine mas s ratioOrdered By: Mary Madrigal on 04-05-2025 Protein/Creatinine (U) [Mass ratio] 242 mg/g CRE High 0-200 [facility] White blood cell (WBC) count Ordered By: Alejandro Gonzalez on 04-05-2025 WBC (Bld) [#/Vol] 8.3 10*3/uL 4.4-11.0 [facility] White blood cell (WBC) count Ordered By: Mary Madrigal on 04-05-2025 WBC (Bld) [#/Vol] 8.4 10*3/uL Normal 4.4-11.0 [facility] Comment on above: Performed By: #### L 3890.6301, L3890.6102, L509.4006, L100.0100, L509.8002, BTS, L900.0098, L3890.6006 #### [facility] [address] [place], [address] Gestational GTT 3HR 100gon 0 03-26-2025 GEST GTT 100gm Normal [facility] Comment on above: Order Comment: Y Result Comment: FAST ING 82 Col: 03/26/25 1013 GLUCOSE TOLERANCE TEST FOR Reference Interval GESTATIONAL DIABETES Fasting <105 mg/dL 1 hour <190 mg/dl 2 hour <165 mg/dl 3 hour <145 mg/dl 1 HR GLU 174 Col: 03/26/25 1144 2 HR GLU 143 Col: 03/26/25 1243 3 HR GLU 91 Col: 03/26/25 1341 Performed By: #### L 3890.6301, L3890.6102, L509.4006, L100.0100, L509.8002, BTS, L900.0098, L3890.6006 #### [facility] [place], [address] Quantitative serum or plasma 3 hour gestational glucose tolerance panelOrdered By: Bertha May on 03-26-2025 Glucose tolerance 3 hours gestational panel See comment [facility] Comment on above: FASTING 82 Col: 03/08 04/01 1013GLUCOSE TOLERANCE TEST FOR Reference Interval GESTATIONAL DIABETES Fasting <105 mg/dL 1 hour <190 mg/dl 2 hour <165 mg/dl 3 hour <145 mg/dl 1 HR GLU 174 Col: 03/26/25 1144 2 HR GLU 143 Col: 03/26/25 1243 3 HR GLU 91 Col: 03/26/25 1341 Absolute lymphocyte countOrd ered By: Dulce Villar on 03-23-2025 Lymphocytes Auto (Unsp spec) [#/Vol] 1.71 10*3/uL 0.83-4.51 [facility] Absolute neutrophil countOrd ered By: Dulce Villar on 03-23-2025 Neutrophils (Bld) [#/Vol] 4.6 10*3/uL 2.0-7.7 [facility] Automated lymphocyte count a s percentage of total leukocytesOrdered By: Dulce Villar on 03-23-2025 Lymphocytes/100 WBC Auto (Unsp spec) 24.5 % 19-41 [facility] Basophil percentageOrdered B y: Dulce Villar on 03-23-2025 Basophils/100 WBC (Bld) 0.6 % 0-1 [facility] CBC W/Diff, Automatedon 03-08 Absolute Lymph 1.71 X10 3/uL Normal 0.83-4.51 [facility] Comment on above: Performed By: #### L 3890.6301, L3890.6102, L509.4006, L100.0100, L509.8002, BTS, L900.0098, L3890.6006 #### [facility] [address] [place], [address] Absolute Neut 4.6 X10 3/uL Normal 2.0-7.7 [facility] Comment on above: Performed By: #### L 3890.6301, L3890.6102, L509.4006, L100.0100, L509.8002, BTS, L900.0098, L3890.6006 #### [facility] [address] [place], [address] Basophils/100 WBC (Bld) 0.6 % Normal 0-1 [facility] Comment on above: Performed By: #### L 3890.6301, L3890.6102, L509.4006, L100.0100, L509.8002, BTS, L900.0098, L3890.6006 #### [facility] [address] [place], [address] Eosinophils/100 WBC (Bld) 1.1 % Normal 0-5 [facility] Comment on above: Performed By: #### L 3890.6301, L3890.6102, L509.4006, L100.0100, L509.8002, BTS, L900.0098, L3890.6006 #### [facility] [address] [place], [address] Erythrocyte distribution width (RBC) [Ratio] 12.5 % Normal 11.6-14.6 [facility] Comment on above: Performed By: #### L 3890.6301, L3890.6102, L509.4006, L100.0100, L509.8002, BTS, L900.0098, L3890.6006 #### [facility] [address] [place], [address] Hematocrit (Bld) [Volume fraction] 33.7 % Low 37-47 [facility] Comment on above: Performed By: #### L 3890.6301, L3890.6102, L509.4006, L100.0100, L509.8002, BTS, L900.0098, L3890.6006 #### [facility] [address] [place], [address] Hemoglobin (Bld) [Mass/Vol] 11.3 g/dL Low 12.0-15.0 [facility] Comment on above: Performed By: #### L 3890.6301, L3890.6102, L509.4006, L100.0100, L509.8002, BTS, L900.0098, L3890.6006 #### [facility] [address] [place], [address] IG% 1.700 High 0.0-0.9 [facility] Comment on above: Result Comment: IG% - Immature Granulocytes (promyelocytes, myelocytes and metamyelocytes) > 1% indicates that a LEFT SHIFT is Present. Performed By: #### L 3890.6301, L3890.6102, L509.4006, L100.0100, L509.8002, BTS, L900.0098, L3890.6006 #### [facility] [address] [place], [address] Lymphocytes/100 WBC (Bld) 24.5 % Normal 19-41 [facility] Comment on above: Performed By: #### L 3890.6301, L3890.6102, L509.4006, L100.0100, L509.8002, BTS, L900.0098, L3890.6006 #### [facility] [address] [place], [address] MCH (RBC) [Entitic mass] 29.4 pg Normal 27.0-32.0 [facility] Comment on above: Performed By: #### L 3890.6301, L3890.6102, L509.4006, L100.0100, L509.8002, BTS, L900.0098, L3890.6006 #### [facility] [address] [place], [address] MCHC (RBC) [Mass/Vol] 33.5 g/dL Normal 32-36 [facility] Comment on above: Performed By: #### L 3890.6301, L3890.6102, L509.4006, L100.0100, L509.8002, BTS, L900.0098, L3890.6006 #### [facility] [address] [place], [address] MCV (RBC) [Entitic vol] 87.5 fL Normal 81-99 [facility] Comment on above: Performed By: #### L 3890.6301, L3890.6102, L509.4006, L100.0100, L509.8002, BTS, L900.0098, L3890.6006 #### [facility] [address] [place], [address] Monocytes/100 WBC (Bld) 6.2 % Normal 0-10 [facility] Comment on above: Performed By: #### L 3890.6301, L3890.6102, L509.4006, L100.0100, L509.8002, BTS, L900.0098, L3890.6006 #### [facility] [address] [place], [address] Neutrophils/100 WBC (Bld) 65.9 % Normal 47-70 [facility] Comment on above: Performed By: #### L 3890.6301, L3890.6102, L509.4006, L100.0100, L509.8002, BTS, L900.0098, L3890.6006 #### [facility] [address] [place], [address] Nucleated RBC (Bld) [#/Vol] 0 10*3/uL Normal 0-5 [facility] Comment on above: Performed By: #### L 3890.6301, L3890.6102, L509.4006, L100.0100, L509.8002, BTS, L900.0098, L3890.6006 #### [facility] [address] [place], [address] Platelet mean volume (Bld) [Entitic vol] 9.5 fL Normal 6.2-12.0 [facility] Comment on above: Performed By: #### L 3890.6301, L3890.6102, L509.4006, L100.0100, L509.8002, BTS, L900.0098, L3890.6006 #### [facility] [address] [place], [address] Platelets (Bld) [#/Vol] 179 10*3/uL Normal 150-450 [facility] Comment on above: Performed By: #### L 3890.6301, L3890.6102, L509.4006, L100.0100, L509.8002, BTS, L900.0098, L3890.6006 #### [facility] [address] [place], [address] RBC (Bld) [#/Vol] 3.85 10*6/uL Low 4.2-5.4 [facility] Comment on above: Performed By: #### L 3890.6301, L3890.6102, L509.4006, L100.0100, L509.8002, BTS, L900.0098, L3890.6006 #### [facility] [address] [place], [address] RDW SD 39.6 fl Normal 35.1-43.9 [facility] Comment on above: Performed By: #### L 3890.6301, L3890.6102, L509.4006, L100.0100, L509.8002, BTS, L900.0098, L3890.6006 #### [facility] [address] [place], [address] WBC (Bld) [#/Vol] 7.0 10*3/uL Normal 4.4-11.0 [facility] Comment on above: Performed By: #### L 3890.6301, L3890.6102, L509.4006, L100.0100, L509.8002, BTS, L900.0098, L3890.6006 #### [facility] [address] [place], [place], [address] Eosinophil percentageOrdered By: Dulce Villar on 03-23-2025 Eosinophils/100 WBC (Bld) 1.1 % 0-5 [facility] Erythrocyte distribution wid th ratioOrdered By: Dulce Villar on 03-23-2025 Erythrocyte distribution width (RBC) [Ratio] 12.5 % 11.6-14.6 [facility] Erythrocyte distribution wid th standard deviationOrdered By: Dulce Villar on 03-23-2025 Erythrocyte distribution width (RBC) [Ratio] 39.6 fl 35.1-43.9 [facility] Glucose Challenge Gest 1H 50 brenda 03-23-2025 GLU GEST 50g 1H 141 mg/dL High 70-140 [facility] Comment on above: Performed By: #### L 3890.6301, L3890.6102, L509.4006, L100.0100, L509.8002, BTS, L900.0098, L3890.6006 #### [facility] [address] [place], [address] Glucose measurement at 2 samantha rs post-dose gestational glucose tolerance testOrdered By: Dulce Villar on 03-23-2025 Glucose [Mass/Vol] 141 mg/dL High 70-140 [facility] HIVon 03-23-2025 HIV Non-Reactive Normal Nonreactive [facility] Comment on above: Result Comment: Non- Reactive Reactive Repeatedly reactive samples must be confirmed according to CDC recommended confirmatory algorithms. The subresults for either HIVAG or AHIV can be used as an aid in the selection of the confirmation algorithm for reactive samples. Send out specimens with Reactive results to [facility] for confirmation. Order the HIV antibody detection and differentiation: lc#[id number] Performed By: #### L 3890.6301, L3890.6102, L509.4006, L100.0100, L509.8002, BTS, L900.0098, L3890.6006 #### [facility] [address] [place], [address] Hematocrit Auto (Bld) [Volum e fraction]Ordered By: Dulce Villar on 03-23-2025 Hematocrit (Bld) [Volume fraction] 33.7 % Low 37-47 [facility] Hemoglobin measurementOrdere d By: Dulce Villar on 03-23-2025 Hemoglobin (Bld) [Mass/Vol] 11.3 g/dL Low 12.0-15.0 [facility] Immature granulocytes/100 WB C Auto (Bld)Ordered By: Dulce Villar on 03-23-2025 Immature granulocytes/100 WBC (Bld) 1.700 % High 0.0-0.9 [facility] Comment on above: IG% - Immature Granu locytes (promyelocytes, myelocytes and metamyelocytes) > 1% indicates that a LEFT SHIFT is Present. Laboratory - Chemistry and C hemistry - challengeOrdered By: Bertha May on 03-23-2025 Glucose Ql (U) Negative [facility] - UrinalysisOrder ed By: Bertha May on 03-23-2025 Protein Ql (U) Negative [facility] MCV (mean corpuscular volume ) determinationOrdered By: Dulce Villar on 03-23-2025 MCV (RBC) [Entitic vol] 87.5 fL 81-99 [facility] Mean corpuscular hemoglobin (MCH) determinationOrdered By: Dulce Villar on 03-23-2025 MCH (RBC) [Entitic mass] 29.4 pg 27.0-32.0 [facility] Mean corpuscular hemoglobin concentration (MCHC) determinationOrdered By: Dulce Villar on 03-23-2025 MCHC (RBC) [Mass/Vol] 33.5 g/dL 32-36 [facility] Mean platelet volume determi nationOrdered By: Dulce Villar on 03-23-2025 Platelet mean volume (Bld) [Entitic vol] 9.5 fL 6.2-12.0 [facility] Monocyte percentageOrdered B y: Dulce Villar on 03-23-2025 Monocytes/100 WBC (Bld) 6.2 % 0-10 [facility] Neutrophil percentageOrdered By: Dulce Villar on 03-23-2025 Neutrophils/100 WBC (Bld) 65.9 % 47-70 [facility] No Panel InformationOrdered By: Dulce Villar on 03-23-2025 HIV (1&2) Antibody Non-Reactive Nonreactive [facility] Comment on above: Non-ReactiveReactive Repeatedly reactive samples must be confirmed according to CDC recommended confirmatory algorithms. The subresults for either HIVAG or AHIV can be used as an aid in the selection of the confirmation algorithm for reactive samples.Send out specimens with Reactive results to [facility] for confirmation.Order the HIV antibody detection and differentiation: #[id number] Nucleated red blood cell per centageOrdered By: Dulce Villar on 03-23-2025 Nucleated RBC/100 WBC (Bld) [Ratio] 0 % 0-5 [facility] Trial Judge Office Visit Reporton 03-23-2025 Trial Judge Office Visit Report [facility] [address], [address] [place] [address] OFFICE VISIT Date of Service: 03/23/25 MR#: [id number] Acct: [id number] Name: SHIRA ARBOLEDA Rep #: [id number] : 1990 Provider: PAM cole Age/Sex: 34/F [place] [facility] [place]: Signed Intake Vital Signs 01/29/25 08:45 02/26/25 15:39 03/23/25 10:00 Height 5 ft 5 in 5 ft 5 in 5 ft 5 in Weight: 216 lb 4 oz 222 lb BMI 35.9 36.9 BP 117/76 114/72 Intake Visit Reasons: 28 WK OB/Glucose Chief Complaint: 28 Week OB/glucose Other Sports Coach Or Instructor Required: No Is patient in pain?: No Allergies Latex, Natural Rubber Allergy (Intermediate, Verified 03/23/25 10:00) Swelling amoxicillin Allergy (Verified 03/23/25 10:00) Hives naproxen (From Aleve) Allergy (Verified 03/23/25 10:00) Hives sulfamethoxazole (From Bactrim) Allergy (Verified 03/23/25 10:00) Hives trimethoprim (From Bactrim) Allergy (Verified 03/23/25 10:00) Hives Medications ???Medication ???Instructions ???Recorded ???Confirmed ???Type multivit-min no.71-iron fum 28 cap PO 10/22/24 03/23/25 History mg-folate no.1 1 mg-dha 300 mg capsule (PNV-[place]) prochlorperazine maleate 10 mg 10 mg PO Q8H PRN nausea and 03/23/25 Rx tablet (Compazine) vomiting #90 tabs promethazine 25 mg tablet 25 mg PO Q6H PRN nausea and 03/23/25 Rx vomiting #30 tabs hydroxyzine HCl 25 mg tablet 25 mg PO TID PRN anxiety #120 tabs 02/18/25 03/23/25 Rx fluoxetine 40 mg capsule 40 mg PO DAILY #30 caps 02/26/25 0 03/23/25 Rx Last Menstrual Period: 09/07/24 Zika: Zika virus screening: Negative : Yes PFSH PFSH Medical History (Updated 03/23/25 @ 10:25 by Bertha May IMAGING TECH, IMAGING TECH-C) Anxiety and depression Elective Dizziness Shortness of breath Hemorrhoid GERD (gastroesophageal reflux disease) Genital herpes Surgical History H/O wisdom tooth extraction S/P tonsillectomy H/O eye surgery Family History Grandfather Diabetes Heart disease Grandmother No problems noted. 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 current occupational exposures/hazards: No pets and animals: No history of recent travel: Yes ([place], [place], [place], [facility]) out of state: Yes out of country: Yes sexually active: Yes Smoking Status: Never smoker alcohol intake: current alcohol intake frequency: holidays/special occasions only details: Not while substance use type: former substance user Date of last use: 6 months ago- gummies and marijuana well-balanced diet: daily or most days caffeine: No eating out: 1-3 times/week during the past year weight has: increased > 10 lbs what type of physical activity do you participate in: none naomi/zoroastrianism: None seatbelt use: always do you feel safe at home: Yes additional social history: FOB/ - Chintan Ripple: [employer] History 5 Elective abortions 1 Hx Para 3 Spontaneous abortions Hx # Term Pregnancies 3 Ectopic pregnancies Hx # Pregnancies Multiple births # of living children 3 Past Pregnancies Del. Date Name GA/Weeks Outcome Route Bth Weight Infant Gen Labor Lgth Anesthesia Del Locatn Provider FOB 03/21/18 Justin 40 live - full term 9lbs 7oz Male epidural [facility] Natali Kilpatrick 06/12/19 Thakur-Goes by Tevin 40 live - full term 8lbs 8oz Male epidural [facility] Dr. Olena Kilpatrick 01/13/21 Isamar 40 live - full term 7lbs 6oz Female epidural [facility] Hafsa Kilpatrick 07/10/24 elective Delivery Date: 03/21/18 Last Updated by: Elvira Travis Prolonged labor, Oligo Delivery Date: 06/12/19 Last Updated by: Elvira Travis hypotension during labor HPI 28 WK OB/Glucose Details: SHIRA ARBOLEDA is a 34 year old who presents for routine OB visit. OB Visit TIFFANY Calculator Estimated Delivery Date Method Current WG Current Estimate 06/14/25 LMP (Certain) 28w 1d Other Estimates 06/13/25 Ultrasound #1 28w 2d Expected Delivery Route/Plan Labor Preferences- CB/BF classes: no labor support person: Chintan labor intervention preferences: [] pain management options preferred: epidural cut cord/dad catch: yes : yes PP control planned: discussed discussed possible routes of delivery and associated risks: [] special requests: [] Specifi (more content not included)... Normal [facility] Platelet countOrdered By: Paolo Villar on 03-23-2025 Platelets (Bld) [#/Vol] 179 10*3/uL 150-450 [facility] RBC Auto (Bld) [#/Vol]Ordere d By: Dulce Villar on 03-23-2025 RBC (Bld) [#/Vol] 3.85 10*6/uL Low 4.2-5.4 [facility] Syphilis Antibodieson 2024 Syphilis Abs Non-Reactive Normal Nonreactive [facility] Comment on above: Performed By: #### L 3890.6301, L3890.6102, L509.4006, L100.0100, L509.8002, BTS, L900.0098, L3890.6006 #### [facility] [address] [place], [address] White blood cell (WBC) count Ordered By: Dulce Villar on 03-23-2025 WBC (Bld) [#/Vol] 7.0 10*3/uL 4.4-11.0 [facility] Laboratory - Chemistry and C hemistry - challengeOrdered By: Dulce Villar on 02-26-2025 Glucose Ql (U) Negative [facility] - UrinalysisOrder ed By: Dulce Villar on 02-26-2025 Protein Ql (U) Negative [facility] Trial Judge Office Visit Reporton 02-26-2025 Trial Judge Office Visit Report [facility] [address], [address] [place] [address] OFFICE VISIT Date of Service: 02/26/25 MR#: [id number] Acct: [id number] Name: SHIRA ARBOLEDA Rep #: [id number] : 1990 Provider: Dr. Dulce sanchez MD Age/Sex: 34/F [place] [facility] [place] Status: Signed Intake Vital Signs 01/29/25 08:45 02/26/25 15:39 Height 5 ft 5 in 5 ft 5 in Weight: 205 lb 4 oz 216 lb 4 oz BMI 34.1 35.9 BP 114/70 117/76 Intake Visit Reasons: 24 WK OB Other Sports Coach Or Instructor Required: No Is patient in pain?: No Allergies Latex, Natural Rubber Allergy (Intermediate, Verified 02/26/25 15:43) Swelling amoxicillin Allergy (Verified 02/26/25 15:43) Hives naproxen (From Aleve) Allergy (Verified 02/26/25 15:43) Hives sulfamethoxazole (From Bactrim) Allergy (Verified 02/26/25 15:43) Hives trimethoprim (From Bactrim) Allergy (Verified 02/26/25 15:43) Hives Medications ???Medication ???Instructions ???Recorded ???Confirmed ???Type valacyclovir 1 gram tablet 1,000 mg PO BID PRN 06/26/2402/26 History (Valtrex) multivit-min no.71-iron fum 28 cap PO 10/22/24 02/26/25 History mg-folate no.1 1 mg-dha 300 mg capsule (PNV-[place]) prochlorperazine maleate 10 mg 10 mg PO Q8H PRN nausea and 02/26/25 Rx tablet (Compazine) vomiting #90 tabs promethazine 25 mg tablet 25 mg PO Q6H PRN nausea and 02/26/25 Rx vomiting #30 tabs hydroxyzine HCl 25 mg tablet 25 mg PO TID PRN anxiety #120 tabs 02/18/25 02/26/25 Rx fluoxetine 40 mg capsule 40 mg PO DAILY #30 caps 02/26/25 0 02/26/25 Rx Last Menstrual Period: 09/07/24 Zika: Zika virus screening: Negative : No PFSH PFSH Medical History Elective Dizziness Shortness of breath Hemorrhoid GERD (gastroesophageal reflux disease) Anxiety and depression Genital herpes Surgical History H/O wisdom tooth extraction S/P tonsillectomy H/O eye surgery Family History Grandfather Diabetes Heart disease Grandmother No problems noted. 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 current occupational exposures/hazards: No pets and animals: No history of recent travel: Yes ([place], [place], [place], [facility]) out of state: Yes out of country: Yes sexually active: Yes Smoking Status: Never smoker alcohol intake: current alcohol intake frequency: holidays/special occasions only details: Not while substance use type: former substance user Date of last use: 6 months ago- gummies and marijuana well-balanced diet: daily or most days caffeine: No eating out: 1-3 times/week during the past year weight has: increased > 10 lbs what type of physical activity do you participate in: none naomi/zoroastrianism: None seatbelt use: always do you feel safe at home: Yes additional social history: FOB/BF - Chintan Ripple: [employer] History 5 Elective abortions 1 Hx Para 3 Spontaneous abortions Hx # Term Pregnancies 3 Ectopic pregnancies Hx # Pregnancies Multiple births # of living children 3 Past Pregnancies Del. Date Name GA/Weeks Outcome Route Bth Weight Infant Gen Labor Lgth Anesthesia Del Locatn Provider FOB 03/21/18 Justin 40 live - full term 9lbs 7oz Male epidural [facility] Natali Kilpatrick 06/12/19 Thakur-Goes by Tevin 40 live - full term 8lbs 8oz Male epidural [facility] Dr. Olena Kilpatrick 01/13/21 Isamar 40 live - full term 7lbs 6oz Female epidural [facility] Hafsa Kilpatrick 07/10/24 elective Delivery Date: 03/21/18 Last Updated by: Elvira Travis Prolonged labor, Oligo Delivery Date: 06/12/19 Last Updated by: Elvira Travis hypotension during labor HPI 24 WK OB Details: SHIRA ARBOLEDA is a 34 year old who presents for routine OB visit. OB Visit TIFFANY Calculator Estimated Delivery Date Method Current WG Current Estimate 06/14/25 LMP (Certain) 24w 4d Other Estimates 06/13/25 Ultrasound #1 24w 5d Expected Delivery Route/Plan Labor Preferences- CB/BF classes: [] labor support person: [] labor intervention preferences: [] pain management options preferred: [] cut cord/dad catch: [] : [] PP control planned: [] discussed possible routes of delivery and associated risks: [] special requests: [] Specific Issue/Nia (more content not included)... Normal [facility] Amphetamine detection with 1 000 ng/mL as cutoffOrdered By: Dulce Villar on 01-29-2025 Amphetamines Screen method >1000 ng/mL Ql (U) Negative < 200 ng/mL [facility] - Chemistry and C hemistry - challengeOrdered By: Mary Madrigal on 01-29-2025 Glucose Ql (U) Negative [facility] - UrinalysisOrder ed By: Mary Madrigal on 01-29-2025 Protein Ql (U) Negative [facility] No Panel InformationOrdered By: Dulce Villar on 01-29-2025 Urine Buprenorphine Qualitative Negative < 200 ng/mL [facility] Urine Oxycodone Screen Negative < 100 ng/mL [facility] Trial Judge Office Visit Reporton 01-29-2025 Trial Judge Office Visit Report [facility] [address], [address] [place] [address] OFFICE VISIT Date of Service: 01/29/25 MR#: [id number] Acct: [id number] Name: SHIRA ARBOLEDA Rep #: [id number] : 1990 Provider: SMITA Garcias ams Age/Sex: 34/F [place] [facility] [place] Status: Signed Intake Vital Signs 11/16/24 13:00 01/01/25 10:14 01/29/25 08:45 Height 5 ft 5 in 5 ft 5 in 5 ft 5 in Weight: 205 lb 4 oz BMI 34.1 BP 114/70 Intake Visit Reasons: 20 wk ob Chief Complaint: 20 Week OB Other Sports Coach Or Instructor Required: No Is patient in pain?: No Allergies Latex, Natural Rubber Allergy (Intermediate, Verified 01/29/25 08:45) Swelling amoxicillin Allergy (Verified 01/29/25 08:45) Hives naproxen (From Aleve) Allergy (Verified 01/29/25 08:45) Hives sulfamethoxazole (From Bactrim) Allergy (Verified 01/29/25 08:45) Hives trimethoprim (From Bactrim) Allergy (Verified 01/29/25 08:45) Hives Medications ???Medication ???Instructions ???Recorded ???Confirmed ???Type valacyclovir 1 gram tablet 1,000 mg PO BID PRN 06/26/2401/29 History (Valtrex) fluoxetine 20 mg capsule 20 mg PO DAILY #30 caps 07/03/24 0 01/29/25 Rx multivit-min no.71-iron fum 28 cap PO 10/22/24 01/29/25 History mg-folate no.1 1 mg-dha 300 mg capsule (PNV-[place]) hydroxyzine HCl 25 mg tablet 25 mg PO TID PRN anxiety #120 tabs 11/05/24 01/29/25 Rx prochlorperazine maleate 10 mg 10 mg PO Q8H PRN nausea and 01/29/25 Rx tablet (Compazine) vomiting #90 tabs fosfomycin tromethamine 3 gram 3 g PO ONCE #1 ea 12/03/24 5 Rx oral packet promethazine 25 mg tablet 25 mg PO Q6H PRN nausea and 01/29/25 Rx vomiting #30 tabs Last Menstrual Period: 09/07/24 Zika: Zika virus screening: Negative : No PFSH PFSH Medical History Elective Dizziness Shortness of breath Hemorrhoid GERD (gastroesophageal reflux disease) Anxiety and depression Genital herpes Surgical History H/O wisdom tooth extraction S/P tonsillectomy H/O eye surgery Family History Grandfather Diabetes Heart disease Grandmother No problems noted. 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 current occupational exposures/hazards: No pets and animals: No history of recent travel: Yes ([place], [place], [place], [place]) out of state: Yes out of country: Yes sexually active: Yes Smoking Status: Never smoker alcohol intake: current alcohol intake frequency: holidays/special occasions only details: Not while substance use type: former substance user Date of last use: 6 months ago- gummies and marijuana well-balanced diet: daily or most days caffeine: No eating out: 1-3 times/week during the past year weight has: increased > 10 lbs what type of physical activity do you participate in: none naomi/zoroastrianism: None seatbelt use: always do you feel safe at home: Yes additional social history: FOB/BF - Chintan Ripple: [employer] History 5 Elective abortions 1 Hx Para 3 Spontaneous abortions Hx # Term Pregnancies 3 Ectopic pregnancies Hx # Pregnancies Multiple births # of living children 3 Past Pregnancies Del. Date Name GA/Weeks Outcome Route Bth Weight Infant Gen Labor Lgth Anesthesia Del Locatn Provider FOB 03/21/18 Justin 40 live - full term 9lbs 7oz Male epidural [facility] Natali Kilpatrick 06/12/19 Thakur-Goes by Tevin 40 live - full term 8lbs 8oz Male epidural [facility] Dr. Olena Kilpatrick 01/13/21 Isamar 40 live - full term 7lbs 6oz Female epidural [facility] Hafsa Kilpatrick 07/10/24 elective Delivery Date: 03/21/18 Last Updated by: Elvira Travis Prolonged labor, Oligo Delivery Date: 06/12/19 Last Updated by: Elvira Travis hypotension during labor HPI 20 wk ob Details: SHIRA ARBOLEDA is a 34 year old who presents for routine OB visit. OB Visit TIFFANY Calculator Estimated Delivery Date Method Current WG Current Estimate 06/14/25 LMP (Certain) 20w 4d Other Estimates 06/13/25 Ultrasound #1 20w 5d Expected Delivery Route/Plan Labor Preferences- CB/BF classes: [] labor support person: [] labor intervention preferences: [] pain management options preferred: [] cut cord/dad catch: [] : [] PP control p (more content not included)... Normal [facility] Quantitative urine opiates m easurementOrdered By: Dulce Villar on 01-29-2025 Opiates Ql (U) Negative < 300 ng/mL [facility] Screening urine fentanyl bharti surementOrdered By: Dulce Villar on 01-29-2025 fentaNYL Screen Ql (U) Negative [facility] Urine Drug Screen (VISTA)on 01-29-2025 AMPHETAMINES Negative Normal <1000 ng/mL [facility] Comment on above: Order Comment: UNKNO WN Performed By: #### L 3890.6301, L3890.6102, L509.4006, L100.0100, L509.8002, BTS, L900.0098, L3890.6006 #### [facility] [address] [place], [place], [id number] BARBITIURATES Negative Normal < 200 ng/mL [facility] Comment on above: Order Comment: UNKNO WN Performed By: #### L 3890.6301, L3890.6102, L509.4006, L100.0100, L509.8002, BTS, L900.0098, L3890.6006 #### [facility] [address] [place], [place], [id number] BENZODIAZIPINE Negative Normal < 200 ng/mL [facility] Comment on above: Order Comment: UNKNO WN Performed By: #### L 3890.6301, L3890.6102, L509.4006, L100.0100, L509.8002, BTS, L900.0098, L3890.6006 #### [facility] [address] [place], [address] BUP Ur Drug Scr Negative Normal < 200 ng/mL [facility] Comment on above: Order Comment: UNKNO WN Performed By: #### L 3890.6301, L3890.6102, L509.4006, L100.0100, L509.8002, BTS, L900.0098, L3890.6006 #### [facility] [address] [place], [address] COCAINE Negative Normal < 300 ng/mL [facility] Comment on above: Order Comment: UNKNO WN Performed By: #### L 3890.6301, L3890.6102, L509.4006, L100.0100, L509.8002, BTS, L900.0098, L3890.6006 #### [facility] [address] [place], [address] Fentanyl Negative Normal [facility] Comment on above: Order Comment: UNKNO WN Performed By: #### L 3890.6301, L3890.6102, L509.4006, L100.0100, L509.8002, BTS, L900.0098, L3890.6006 #### [facility] [address] [place], [address] METHADONE Negative Normal < 300 ng/mL [facility] Comment on above: Order Comment: UNKNO WN Performed By: #### L 3890.6301, L3890.6102, L509.4006, L100.0100, L509.8002, BTS, L900.0098, L3890.6006 #### [facility] [address] [place], [address] OPIATES Negative Normal < 300 ng/mL [facility] Comment on above: Order Comment: UNKNO WN Performed By: #### L 3890.6301, L3890.6102, L509.4006, L100.0100, L509.8002, BTS, L900.0098, L3890.6006 #### [facility] [address] [place], [place], [id number] OXYCODONE Negative Normal < 100 ng/mL [facility] Comment on above: Order Comment: UNKNO WN Performed By: #### L 3890.6301, L3890.6102, L509.4006, L100.0100, L509.8002, BTS, L900.0098, L3890.6006 #### [facility] [address] [place], [address] PCP Negative Normal < 25 ng/mL [facility] Comment on above: Order Comment: UNKNO WN Performed By: #### L 3890.6301, L3890.6102, L509.4006, L100.0100, L509.8002, BTS, L900.0098, L3890.6006 #### [facility] [address] [place], [address] THC Negative Normal < 50 ng/mL [facility] Comment on above: Order Comment: UNKNO WN Performed By: #### L 3890.6301, L3890.6102, L509.4006, L100.0100, L509.8002, BTS, L900.0098, L3890.6006 #### [facility] [address] [place], [address] Urine benzodiazepine levelOr dered By: Dulce Villar on 01-29-2025 Benzodiazepines Ql (U) Negative < 200 ng/mL [facility] Urine cocaine levelOrdered B y: Dulce Villar on 01-29-2025 Cocaine Ql (U) Negative < 300 ng/mL [facility] Urine zzbko-3-gmvrijyjhpyrvv abinol (THC) measurementOrdered By: Dulce Villar on 01-29-2025 Cannabinoids Screen Ql (U) Negative < 50 ng/mL [facility] Urine phencyclidine (PCP) de tectionOrdered By: Dulce Villar on 01-29-2025 Phencyclidine Ql (U) Negative < 25 ng/mL [facility] Trial Judge Office Visit Reporton 01-01-2025 Trial Judge Office Visit Report [facility] [address], [address] [place] [address] OFFICE VISIT Date of Service: 01/01/25 MR#: [id number] Acct: [id number] Name: SHIRA ARBOLEDA Rep #: [id number] : 1990 Provider: Dr. Ashlyn Mohamud DO Age/Sex: 34/F [place] [facility] [place]: Signed Intake Vital Signs 11/16/24 13:00 12/03/24 08:30 01/01/25 10:13 01/01/25 10:14 Height 5 ft 5 in 5 ft 5 in 5 ft 5 in 5 ft 5 in Weight: 201 lb 6 oz BMI 33.5 BP 106/69 Intake Visit Reasons: 16 wk ob Other Sports Coach Or Instructor Required: No Is patient in pain?: No Allergies Latex, Natural Rubber Allergy (Intermediate, Verified 01/01/25 10:12) Swelling amoxicillin Allergy (Verified 01/01/25 10:12) Hives naproxen (From Aleve) Allergy (Verified 01/01/25 10:12) Hives sulfamethoxazole (From Bactrim) Allergy (Verified 01/01/25 10:12) Hives trimethoprim (From Bactrim) Allergy (Verified 01/01/25 10:12) Hives Medications ???Medication ???Instructions ???Recorded ???Confirmed ???Type valacyclovir 1 gram tablet 1,000 mg PO BID PRN 06/26/2401/01 History (Valtrex) fluoxetine 20 mg capsule 20 mg PO DAILY #30 caps 07/03/24 0 01/01/25 Rx multivit-min no.71-iron fum 28 cap PO 10/22/24 01/01/25 History mg-folate no.1 1 mg-dha 300 mg capsule (PNV-[place]) hydroxyzine HCl 25 mg tablet 25 mg PO TID PRN anxiety #120 tabs 11/05/24 01/01/25 Rx prochlorperazine maleate 10 mg 10 mg PO Q8H PRN nausea and 01/01/25 Rx tablet (Compazine) vomiting #90 tabs fosfomycin tromethamine 3 gram 3 g PO ONCE #1 ea 12/03/24 5 Rx oral packet promethazine 25 mg tablet 25 mg PO Q6H PRN nausea and 01/01/25 Rx vomiting #30 tabs Last Menstrual Period: 09/07/24 Zika: Zika virus screening: Negative : No PFSH PFSH Medical History Elective Dizziness Shortness of breath Hemorrhoid GERD (gastroesophageal reflux disease) Anxiety and depression Genital herpes Surgical History H/O wisdom tooth extraction S/P tonsillectomy H/O eye surgery Family History Grandfather Diabetes Heart disease Grandmother No problems noted. 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 current occupational exposures/hazards: No pets and animals: No history of recent travel: Yes ([place], [place], [place], [place]) out of state: Yes out of country: Yes sexually active: Yes Smoking Status: Never smoker alcohol intake: current alcohol intake frequency: holidays/special occasions only details: Not while substance use type: former substance user Date of last use: 6 months ago- gummies and marijuana well-balanced diet: daily or most days caffeine: No eating out: 1-3 times/week during the past year weight has: increased > 10 lbs what type of physical activity do you participate in: none naomi/zoroastrianism: None seatbelt use: always do you feel safe at home: Yes additional social history: FOB/BF - Chintan Ripple: [employer] History 5 Elective abortions 1 Hx Para 3 Spontaneous abortions Hx # Term Pregnancies 3 Ectopic pregnancies Hx # Pregnancies Multiple births # of living children 3 Past Pregnancies Del. Date Name GA/Weeks Outcome Route Bth Weight Infant Gen Labor Lgth Anesthesia Del Locatn Provider FOB 03/21/18 Justin 40 live - full term 9lbs 7oz Male epidural [facility] S NGOZI Kilpatrick 06/12/19 Thakur-Goes by Tevin 40 live - full term 8lbs 8oz Male epidural [facility] Dr. Olena Kilpatrick 01/13/21 Isamar 40 live - full term 7lbs 6oz Female epidural [facility] Hafsa Kilpatrick 07/10/24 elective Delivery Date: 03/21/18 Last Updated by: Elvira Travis Prolonged labor, Oligo Delivery Date: 06/12/19 Last Updated by: Elvira Travis hypotension during labor HPI 16 wk ob Details: SHIRA ARBOLEDA is a 34 year old who presents for routine OB visit. OB Visit TIFFANY Calculator Estimated Delivery Date Method Current WG Current Estimate 06/14/25 LMP (Certain) 16w 4d Other Estimates 06/13/25 Ultrasound #1 16w 5d Expected Delivery Route/Plan Labor Preferences- CB/BF classes: [] labor support person: [] labor intervention preferences: [] pain management options preferred: [] cut cord/dad catch: [] : [] PP contro (more content not included)... Normal [facility] Urine Cultureon 12-06-2024 URC Urine Culture Urine Culture Urine Culture Streptococcus agalactiae (B) [employer] Count 1000-10,000 Mixed Gram Positive Organisms Mixed Gram Positive Organisms MIXC Mixed contaminants. Submit a new specimen if indicated. Streptococcus agalactiae (B): REACTION cefTRIAXone Islt [place] <=0.12 Clindamycin.induced Susc Islt NEG Linezolid Islt [place] <=2 Vancomycin Islt [place] 0.5 S Normal [facility] Comment on above: Performed By: #### L 3890.6301, L3890.6102, L509.4006, L100.0100, L509.8002, BTS, L900.0098, L3890.6006 #### [facility] [place], [address] Laboratory - Chemistry and C hemistry - challengeOrdered By: Dulce Villar on 12-03-2024 Bilirubin Ql (U) Negative [facility] Glucose Ql (U) Negative [facility] Ketones Ql (U) Negative [facility] pH (U) 6.0 [pH] [facility] Specific gravity (U) [Rel density] 1.020 [facility] Urobilinogen (U) [Mass/Vol] 0.2143473 mg/dL [facility] - Hematology and Cell countsOrdered By: Dulce Villar on 12-03-2024 Hemoglobin Ql (U) Trace [facility] - Specimen inform ationOrdered By: Dulce Villar on 12-03-2024 Clarity (U) Clear [facility] Color (U) YELLOW [facility] - UrinalysisOrder ed By: Dulce Villar on 12-03-2024 Nitrite Ql (U) Negative [facility] Protein Ql (U) Negative [facility] No Panel InformationOrdered By: Dulce Villar on 12-03-2024 Urine Leukocytes Positive [facility] Urine Non-Hemolyzed Blood Trace [facility] Trial Judge Office Visit Reporton 12-03-2024 Trial Judge Office Visit Report [facility]'[address], [facility] [address] [place] [address] OFFICE VISIT Date of Service: 12/03/24 MR#: [id number] Acct: [id number] Name: SHIRA ARBOLEDA Rep #: [id number] : 1990 Provider: Dr. Dulce sanchez MD Age/Sex: 34/F [place] [facility] [place]: Signed Intake Vital Signs 09/01/24 13:41 11/06/24 16:17 11/16/24 13:00 12/03/24 08:30 Height 5 ft 5 in 5 ft 5 in 5 ft 5 in 5 ft 5 in Weight: 194 lb BMI 32.3 BP 119/79 Intake Visit Reasons: 12wk OB Other Sports Coach Or Instructor Required: No Is patient in pain?: Yes (having pain with urination after intercourse, also c/o possible thrush) Allergies Latex, Natural Rubber Allergy (Intermediate, Verified 12/03/24 08:34) Swelling amoxicillin Allergy (Verified 12/03/24 08:34) Hives naproxen (From Aleve) Allergy (Verified 12/03/24 08:34) Hives sulfamethoxazole (From Bactrim) Allergy (Verified 12/03/24 08:34) Hives trimethoprim (From Bactrim) Allergy (Verified 12/03/24 08:34) Hives Medications ???Medication ???Instructions ???Recorded ???Confirmed ???Type valacyclovir 1 gram tablet 1,000 mg PO BID PRN 06/26/2412/03 History (Valtrex) fluoxetine 20 mg capsule 20 mg PO DAILY #30 caps 07/03/24 0 12/03/24 Rx multivit-min no.71-iron fum 28 cap PO 10/22/24 12/03/24 History mg-folate no.1 1 mg-dha 300 mg capsule (PNV-[place]) hydroxyzine HCl 25 mg tablet 25 mg PO TID PRN anxiety #120 tabs 11/05/24 12/03/24 Rx prochlorperazine maleate 10 mg 10 mg PO Q8H PRN nausea and 12/03/24 Rx tablet (Compazine) vomiting #90 tabs Last Menstrual Period: 09/07/24 Zika: Zika virus screening: Negative : No PFSH PFSH Medical History Elective Dizziness Shortness of breath Hemorrhoid GERD (gastroesophageal reflux disease) Anxiety and depression Genital herpes Surgical History H/O wisdom tooth extraction S/P tonsillectomy H/O eye surgery Family History Grandfather Diabetes Heart disease Grandmother No problems noted. 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 current occupational exposures/hazards: No pets and animals: No history of recent travel: Yes ([place], [place], [place], [place]) out of state: Yes out of country: Yes sexually active: Yes Smoking Status: Never smoker alcohol intake: current alcohol intake frequency: holidays/special occasions only details: Not while substance use type: former substance user Date of last use: 6 months ago- gummies and marijuana well-balanced diet: daily or most days caffeine: No eating out: 1-3 times/week during the past year weight has: increased > 10 lbs what type of physical activity do you participate in: none naomi/zoroastrianism: None seatbelt use: always do you feel safe at home: Yes additional social history: FOB/BF - Chintan Ripple: [employer] Specialist History 5 Elective abortions 1 Hx Para 3 Spontaneous abortions Hx # Term Pregnancies 3 Ectopic pregnancies Hx # Pregnancies Multiple births # of living children 3 Past Pregnancies Del. Date Name GA/Weeks Outcome Route Bth Weight Gen Labor Lgth Anesthesia Del Locatn Provider FOB 03/21/18 Justin 40 live - full term 9lbs 7oz Male epidural [facility] S NGOZI Kilpatrick 06/12/19 Thakur-Goes by Tevin 40 live - full term 8lbs 8oz Male epidural [facility] Dr. Olena Kilpatrick 01/13/21 Isamar 40 live - full term 7lbs 6oz Female epidural [facility] Hafsa Kilpatrick 07/10/24 elective Delivery Date: 03/21/18 Last Updated by: Elvira Travis Prolonged labor, Oligo Delivery Date: 06/12/19 Last Updated by: Elvira Travis hypotension during labor HPI 12wk OB Details: SHIRA ARBOLEDA is a 34 year old who presents for routine OB visit. OB Visit TIFFANY Calculator Estimated Delivery Date Method Current WG Current Estimate 06/14/25 LMP (Certain) 12w 3d Other Estimates 06/13/25 Ultrasound #1 12w 4d Expected Delivery Route/Plan Labor Preferences- CB/BF classes: [] labor support person: [] labor intervention preferences: [] pain management options preferred: [] cut cord/dad catch: [] : [] PP control planned: [] discussed possible routes of delivery and associated risks: [] special requests: [] Specific Issue/Plans Co (more content not included)... Normal [facility] Urine cultureOrdered By: Javier Villar on 12-03-2024 Bacteria identified Cx Nom (U) Streptococcus agalactiae (B) Abnormal [facility] Bacteria identified Cx Nom (U) Positive Abnormal [facility] L3890.6102on 11-18-2024 HEP B Surf Ag Non-Reactive Normal Nonreactive [facility] Comment on above: Result Comment: Reac tive: Presumptive evidence of HBV. Repeatedly reactive samples must be confirmed using a neutralization test ([employer] HBsAg Confirmatory Test) Non-Reactive: HBsAg not detected; does not exclude the possibility of exposure to HBV Performed By: #### L 3890.6301, L3890.6102, L509.4006, L100.0100, L509.8002, BTS, L900.0098, L3890.6006 #### [facility] [employer] [place], [address] Absolute lymphocyte countOrd ered By: Dulce Villar on 11-16-2024 Lymphocytes Auto (Unsp spec) [#/Vol] 2.57 10*3/uL 0.83-4.51 [facility] Absolute neutrophil countOrd ered By: Dulce Villar on 11-16-2024 Neutrophils (Bld) [#/Vol] 6.4 10*3/uL 2.0-7.7 [facility] Automated lymphocyte count a s percentage of total leukocytesOrdered By: Dulce Villar on 11-16-2024 Lymphocytes/100 WBC Auto (Unsp spec) 26.5 % 19-41 [facility] Basophil percentageOrdered B y: Dulce Villar on 11-16-2024 Basophils/100 WBC (Bld) 0.2 % 0-1 [facility] CBC W/Diff, Automatedon 11-05 Absolute Lymph 2.57 X10 3/uL Normal 0.83-4.51 [facility] Comment on above: Performed By: #### L 3890.6301, L3890.6102, L509.4006, L100.0100, L509.8002, BTS, L900.0098, L3890.6006 #### [facility] [address] [place], [address] Absolute Neut 6.4 X10 3/uL Normal 2.0-7.7 [facility] Comment on above: Performed By: #### L 3890.6301, L3890.6102, L509.4006, L100.0100, L509.8002, BTS, L900.0098, L3890.6006 #### [facility] [address] [place], [address] Basophils/100 WBC (Bld) 0.2 % Normal 0-1 [facility] Comment on above: Performed By: #### L 3890.6301, L3890.6102, L509.4006, L100.0100, L509.8002, BTS, L900.0098, L3890.6006 #### [facility] [address] [place], [address] Eosinophils/100 WBC (Bld) 0.6 % Normal 0-5 [facility] Comment on above: Performed By: #### L 3890.6301, L3890.6102, L509.4006, L100.0100, L509.8002, BTS, L900.0098, L3890.6006 #### [facility] [address] [place], [address] Erythrocyte distribution width (RBC) [Ratio] 12.2 % Normal 11.6-14.6 [facility] Comment on above: Performed By: #### L 3890.6301, L3890.6102, L509.4006, L100.0100, L509.8002, BTS, L900.0098, L3890.6006 #### [facility] [address] [place], [address] Hematocrit (Bld) [Volume fraction] 39.2 % Normal 37-47 [facility] Comment on above: Performed By: #### L 3890.6301, L3890.6102, L509.4006, L100.0100, L509.8002, BTS, L900.0098, L3890.6006 #### [facility] [address] [place], [address] Hemoglobin (Bld) [Mass/Vol] 13.1 g/dL Normal 12.0-15.0 [facility] Comment on above: Performed By: #### L 3890.6301, L3890.6102, L509.4006, L100.0100, L509.8002, BTS, L900.0098, L3890.6006 #### [facility] [address] [place], [address] IG% 0.400 Normal 0.0-0.9 [facility] Comment on above: Result Comment: IG% - Immature Granulocytes (promyelocytes, myelocytes and metamyelocytes) > 1% indicates that a LEFT SHIFT is Present. Performed By: #### L 3890.6301, L3890.6102, L509.4006, L100.0100, L509.8002, BTS, L900.0098, L3890.6006 #### [facility] [address] [place], [address] Lymphocytes/100 WBC (Bld) 26.5 % Normal 19-41 [facility] Comment on above: Performed By: #### L 3890.6301, L3890.6102, L509.4006, L100.0100, L509.8002, BTS, L900.0098, L3890.6006 #### [facility] [address] [place], [address] MCH (RBC) [Entitic mass] 29.0 pg Normal 27.0-32.0 [facility] Comment on above: Performed By: #### L 3890.6301, L3890.6102, L509.4006, L100.0100, L509.8002, BTS, L900.0098, L3890.6006 #### [facility] [address] [place], [address] MCHC (RBC) [Mass/Vol] 33.4 g/dL Normal 32-36 [facility] Comment on above: Performed By: #### L 3890.6301, L3890.6102, L509.4006, L100.0100, L509.8002, BTS, L900.0098, L3890.6006 #### [facility] [address] [place], [address] MCV (RBC) [Entitic vol] 86.7 fL Normal 81-99 [facility] Comment on above: Performed By: #### L 3890.6301, L3890.6102, L509.4006, L100.0100, L509.8002, BTS, L900.0098, L3890.6006 #### [facility] [address] [place], [address] Monocytes/100 WBC (Bld) 6.5 % Normal 0-10 [facility] Comment on above: Performed By: #### L 3890.6301, L3890.6102, L509.4006, L100.0100, L509.8002, BTS, L900.0098, L3890.6006 #### [facility] [address] [place], [address] Neutrophils/100 WBC (Bld) 65.8 % Normal 47-70 [facility] Comment on above: Performed By: #### L 3890.6301, L3890.6102, L509.4006, L100.0100, L509.8002, BTS, L900.0098, L3890.6006 #### [facility] [address] [place], [address] Nucleated RBC (Bld) [#/Vol] 0 10*3/uL Normal 0-5 [facility] Comment on above: Performed By: #### L 3890.6301, L3890.6102, L509.4006, L100.0100, L509.8002, BTS, L900.0098, L3890.6006 #### [facility] [address] [place], [address] Platelet mean volume (Bld) [Entitic vol] 9.6 fL Normal 6.2-12.0 [facility] Comment on above: Performed By: #### L 3890.6301, L3890.6102, L509.4006, L100.0100, L509.8002, BTS, L900.0098, L3890.6006 #### [facility] [address] [place], [address] Platelets (Bld) [#/Vol] 239 10*3/uL Normal 150-450 [facility] Comment on above: Performed By: #### L 3890.6301, L3890.6102, L509.4006, L100.0100, L509.8002, BTS, L900.0098, L3890.6006 #### [facility] [address] [place], [address] RBC (Bld) [#/Vol] 4.52 10*6/uL Normal 4.2-5.4 [facility] Comment on above: Performed By: #### L 3890.6301, L3890.6102, L509.4006, L100.0100, L509.8002, BTS, L900.0098, L3890.6006 #### [facility] [address] [place], [address] RDW SD 38.4 fl Normal 35.1-43.9 [facility] Comment on above: Performed By: #### L 3890.6301, L3890.6102, L509.4006, L100.0100, L509.8002, BTS, L900.0098, L3890.6006 #### [facility] [address] [place], [address] WBC (Bld) [#/Vol] 9.7 10*3/uL Normal 4.4-11.0 [facility] Comment on above: Performed By: #### L 3890.6301, L3890.6102, L509.4006, L100.0100, L509.8002, BTS, L900.0098, L3890.6006 #### [facility] [address] [place], [address] Eosinophil percentageOrdered By: Dulce Villar on 11-16-2024 Eosinophils/100 WBC (Bld) 0.6 % 0-5 [facility] Erythrocyte distribution wid th ratioOrdered By: Dulce Villar on 11-16-2024 Erythrocyte distribution width (RBC) [Ratio] 12.2 % 11.6-14.6 [facility] Erythrocyte distribution wid th standard deviationOrdered By: Dulce Villar on 11-16-2024 Erythrocyte distribution width (RBC) [Ratio] 38.4 fl 35.1-43.9 [facility] HIVon 11-16-2024 HIV Non-Reactive Normal Nonreactive [facility] Comment on above: Result Comment: Non- Reactive Reactive Repeatedly reactive samples must be confirmed according to CDC recommended confirmatory algorithms. The subresults for either HIVAG or AHIV can be used as an aid in the selection of the confirmation algorithm for reactive samples. Send out specimens with Reactive results to [facility] for confirmation. Order the HIV antibody detection and differentiation: lc#[id number] Performed By: #### L 3890.6301, L3890.6102, L509.4006, L100.0100, L509.8002, BTS, L900.0098, L3890.6006 #### [facility] [address] [place], [address] Hematocrit Auto (Bld) [Volum e fraction]Ordered By: Dulce Pettyfavio on 11-16-2024 Hematocrit (Bld) [Volume fraction] 39.2 % 37-47 [facility] Hemoglobin measurementOrdere d By: Dulce Villar on 11-16-2024 Hemoglobin (Bld) [Mass/Vol] 13.1 g/dL 12.0-15.0 [facility] Hepatitis C Antibodyon 11-16 Hepatitis C Ab Non-Reactive Normal Nonreactive [facility] Comment on above: Result Comment: Reac tive: Presumptive evidence of antibodies to HCV. Follow CDC recommendations for supplemental testing. Non-Reactive: Antibodies to HCV were not detected; does not exclude the possibility of exposure to HCV Reactive Results are presumptive evidence of antibodies to HCV. Follow CDC recommendations for supplemental testing. Order confirmation testing: HCV Quant by PCR testing - HCVPCR lc#[id number] Non Reactive: < 0.8 Equivocal: >/= 0.8 to < 1.0 Reactive: >/= 1.0 The CDC requires that a reactive/equivocal HCV antibody result be sent out for confirmation. HCV Quant by PCR testing. Performed By: #### L 3890.6301, L3890.6102, L509.4006, L100.0100, L509.8002, BTS, L900.0098, L3890.6006 #### [facility] [address] [place], [place], [id number] Immature granulocytes/100 WB C Auto (Bld)Ordered By: Dulce Olena on 11-16-2024 Immature granulocytes/100 WBC (Bld) 0.400 % 0.0-0.9 [facility] Comment on above: IG% - Immature Granu locytes (promyelocytes, myelocytes and metamyelocytes) > 1% indicates that a LEFT SHIFT is Present. L509.4006on 11-16-2024 Rubella IgG REAC Normal Nonreactive [facility] Comment on above: Result Comment: Anti body Result: Interpretation Non-Reactive: Non-Immune Reactive: Immune The following results were obtained with the [employer]ys Rubella IgG assay. Results from assays of other manufacturers cannot be used interchangeably. Performed By: #### L 3890.6301, L3890.6102, L509.4006, L100.0100, L509.8002, BTS, L900.0098, L3890.6006 #### [facility] [address] [place], [address] Laboratory - Chemistry and C hemistry - challengeOrdered By: Dulce Villar on 11-16-2024 Glucose Ql (U) Negative [facility] - Microbiology an d Antimicrobial susceptibilityOrdered By: Dulce Villar on 11-16-2024 HBV surface Ag Ql (S) Non-Reactive Nonreactive [facility] Comment on above: Reactive: Presumptiv e evidence of HBV. Repeatedly reactive samples must be confirmed using a neutralization test ([employer] HBsAg Confirmatory Test)Non-Reactive: HBsAg not detected; does not exclude the possibility of exposure to HBV Laboratory - UrinalysisOrder ed By: Dulce Villar on 11-16-2024 Protein Ql (U) Negative [facility] MCV (mean corpuscular volume ) determinationOrdered By: Dulce Villar on 11-16-2024 MCV (RBC) [Entitic vol] 86.7 fL 81-99 [facility] Mean corpuscular hemoglobin (MCH) determinationOrdered By: uDlce Villar on 11-16-2024 MCH (RBC) [Entitic mass] 29.0 pg 27.0-32.0 [facility] Mean corpuscular hemoglobin concentration (MCHC) determinationOrdered By: Dulce Villar on 11-16-2024 MCHC (RBC) [Mass/Vol] 33.4 g/dL 32-36 [facility] Mean platelet volume determi nationOrdered By: Dulce Villar on 11-16-2024 Platelet mean volume (Bld) [Entitic vol] 9.6 fL 6.2-12.0 [facility] Monocyte percentageOrdered B y: Dulce Villar on 11-16-2024 Monocytes/100 WBC (Bld) 6.5 % 0-10 [facility] NATERAon 11-16-2024 NATURA SEE SCANNED REPORT Normal [facility] Comment on above: Performed By: #### L 3890.6301, L3890.6102, L509.4006, L100.0100, L509.8002, BTS, L900.0098, L3890.6006 #### [facility] [address] [place], [address] Neutrophil percentageOrdered By: Dulce Villar on 11-16-2024 Neutrophils/100 WBC (Bld) 65.8 % 47-70 [facility] No Panel InformationOrdered By: Dulce Villar on 11-16-2024 HIV (1&2) Antibody Non-Reactive Nonreactive [facility] Comment on above: Non-ReactiveReactive Repeatedly reactive samples must be confirmed according to CDC recommended confirmatory algorithms. The subresults for either HIVAG or AHIV can be used as an aid in the selection of the confirmation algorithm for reactive samples.Send out specimens with Reactive results to [facility] for confirmation.Order the HIV antibody detection and differentiation: #[id number] Nucleated red blood cell per centageOrdered By: Dulce Villar on 11-16-2024 Nucleated RBC/100 WBC (Bld) [Ratio] 0 % 0-5 [facility] Trial Judge Office Visit Reporton 11-16-2024 Trial Judge Office Visit Report [facility] [address], [address] [place] [address] OFFICE VISIT Date of Service: 11/16/24 MR#: [id number] Acct: [id number] Name: SHIRA ARBOLEDA Rep #: [id number] : 1990 Provider: Dr. Dulce sanchez MD Age/Sex: 34/F [place] [facility] [place] Status: Signed Intake Vital Signs 11/06/24 16:17 11/16/24 13:00 Height 5 ft 5 in 5 ft 5 in Weight: 189 lb 6 oz BMI 31.5 BP 116/74 Intake Visit Reasons: 10 wk ob Other Sports Coach Or Instructor Required: No Is patient in pain?: No Allergies Latex, Natural Rubber Allergy (Intermediate, Verified 11/16/24 13:04) Swelling amoxicillin Allergy (Verified 11/16/24 13:04) Hives naproxen (From Aleve) Allergy (Verified 11/16/24 13:04) Hives sulfamethoxazole (From Bactrim) Allergy (Verified 11/16/24 13:04) Hives trimethoprim (From Bactrim) Allergy (Verified 11/16/24 13:04) Hives Medications ???Medication ???Instructions ???Recorded ???Confirmed ???Type valacyclovir 1 gram tablet 1,000 mg PO BID PRN 06/26/2411/16 History (Valtrex) fluoxetine 20 mg capsule 20 mg PO DAILY #30 caps 07/03/24 0 11/16/24 Rx multivit-min no.71-iron fum 28 cap PO 10/22/24 11/16/24 History mg-folate no.1 1 mg-dha 300 mg capsule (PNV-[place]) hydroxyzine HCl 25 mg tablet 25 mg PO TID PRN anxiety #120 tabs 11/05/24 11/16/24 Rx prochlorperazine maleate 10 mg 10 mg PO Q8H PRN nausea and 11/16/24 Rx tablet (Compazine) vomiting #90 tabs Last Menstrual Period: 09/07/24 Zika: Zika virus screening: Negative : No PFSH PFSH Medical History Elective Dizziness Shortness of breath Hemorrhoid GERD (gastroesophageal reflux disease) Anxiety and depression Genital herpes Surgical History H/O wisdom tooth extraction S/P tonsillectomy H/O eye surgery Family History Grandfather Diabetes Heart disease Grandmother No problems noted. 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 current occupational exposures/hazards: No pets and animals: No history of recent travel: Yes ([place], [place], [place], [place]) out of state: Yes out of country: Yes sexually active: Yes Smoking Status: Never smoker alcohol intake: current alcohol intake frequency: holidays/special occasions only details: Not while substance use type: former substance user Date of last use: 6 months ago- marijuana gummies and marijuana well-balanced diet: daily or most days caffeine: No eating out: 1-3 times/week during the past year weight has: increased > 10 lbs what type of physical activity do you participate in: none naomi/zoroastrianism: None seatbelt use: always do you feel safe at home: Yes additional social history: FOB/BF - Chintan Ripple: [employer] History 5 Elective abortions 1 Hx Para 3 Spontaneous abortions Hx # Term Pregnancies 3 Ectopic pregnancies Hx # Pregnancies Multiple births # of living children 3 Past Pregnancies Del. Date Name GA/Weeks Outcome Route Bth Weight Infant Gen Labor Lgth Anesthesia Del Locatn Provider FOB 03/21/18 Justin 40 live - full term 9lbs 7oz Male epidural [facility] Natali Kilpatrick 06/12/19 Thakur-Goes by Tevin 40 live - full term 8lbs 8oz Male epidural [facility] Dr. Olena Kilpatrick 01/13/21 Isamar 40 live - full term 7lbs 6oz Female epidural [facility] Hafsa Kilpatrick 07/10/24 elective Delivery Date: 03/21/18 Last Updated by: Elvira Travis Prolonged labor, Oligo Delivery Date: 06/12/19 Last Updated by: Elvira Travis hypotension during labor HPI 10 wk ob Details: SHIRA ARBOLEDA is a 34 year old who presents for routine OB visit. OB Visit TIFFANY Calculator Estimated Delivery Date Method Current WG Current Estimate 06/14/25 LMP (Certain) 10w 0d Other Estimates 06/13/25 Ultrasound #1 10w 1d Expected Delivery Route/Plan Labor Preferences- CB/BF classes: [] labor support person: [] labor intervention preferences: [] pain management options preferred: [] cut cord/dad catch: [] : [] PP control planned: [] discussed possible routes of delivery and associated risks: [] special requests: [] Specific Issue/Plans Covid status: [] Flu vaccine: [] Tdap vaccine: [] Rhogam: [] LARC form signed: [] Problem list review (more content not included)... Normal [facility] Platelet countOrdered By: Paolo Villar on 11-16-2024 Platelets (Bld) [#/Vol] 239 10*3/uL 150-450 [facility] RBC Auto (Bld) [#/Vol]Ordere d By: Dulce Villar on 11-16-2024 RBC (Bld) [#/Vol] 4.52 10*6/uL 4.2-5.4 [facility] Syphilis Antibodieson 2024 Syphilis Abs Non-Reactive Normal Nonreactive [facility] Comment on above: Performed By: #### L 3890.6301, L3890.6102, L509.4006, L100.0100, L509.8002, BTS, L900.0098, L3890.6006 #### [facility] [address] [place], [place], [id number] Type AND Screenon 11-16-2024 Ab SCREEN GEL Negative Normal [facility] Comment on above: Order Comment: PN Performed By: #### L 3890.6301, L3890.6102, L509.4006, L100.0100, L509.8002, BTS, L900.0098, L3890.6006 #### [facility] [address] [place], [address] White blood cell (WBC) count Ordered By: Dulce Villar on 11-16-2024 WBC (Bld) [#/Vol] 9.7 10*3/uL 4.4-11.0 [facility] Chlamydia/GC CARRIE aptimaon CHLAMY,NUC ACID Negative Normal Negative [facility] Comment on above: Performed By: #### L 3890.6301, L3890.6102, L509.4006, L100.0100, L509.8002, BTS, L900.0098, L3890.6006 #### [facility] [address] [place], [place], [id number] GC BY NUC ACID Negative Normal Negative [facility] Comment on above: Result Comment: Perf ormed at: =G - [facility] [address] [place], [place] [id number] Licensed Sales Producer: Faby Leyva MD, Phone: [phone] Performed By: #### L 3890.6301, L3890.6102, L509.4006, L100.0100, L509.8002, BTS, L900.0098, L3890.6006 #### [facility] [address] [place], [place], [id number] Urine Cultureon 11-08-2024 [facility] Clinical correlation necessary, Possible skin contamination. Urine Culture Presumptive Lactobacillus sp. [employer] Count 50,000-80,000 Normal [facility] Comment on above: Performed By: #### L 3890.6301, L3890.6102, L509.4006, L100.0100, L509.8002, BTS, L900.0098, L3890.6006 #### [facility] [address] [place], [place], [id number] Chlamydia trachomatis rRNA d etection by probe and target amplification methodOrdered By: Dulce Villar on 11-06-2024 C. trachomatis rRNA CARRIE+probe Ql (Unsp spec) Negative Negative [facility] Neisseria gonorrhoeae nuclei c acid detection by amplified probe techniqueOrdered By: Dulce Villar on 11-06-2024 N. gonorrhoeae DNA CARRIE+probe Ql (Unsp spec) Negative Negative [facility] Comment on above: Performed at: =G - [facility] [id number] [place], [place] [id number] Director: Faby Leyva MD, Phone: [phone] Trial Judge Office Visit Reporton 11-06-2024 Trial Judge Office Visit Report [facility]'s [address], [address] [place] [address] OFFICE VISIT Date of Service: 11/06/24 MR#: [id number] Acct: [id number] Name: SHIRA ARBOLEDA Rep #: [id number] : 1990 Provider: Dr. Dulce sanchez MD Age/Sex: 34/F [place] [facility] Status: Signed Intake Vital Signs 09/01/24 13:41 11/06/24 16:16 11/06/24 16:17 Height 5 ft 5 in 5 ft 5 in 5 ft 5 in Weight: 188 lb BMI 31.2 BP 118/80 Intake Visit Reasons: new ob Other Sports Coach Or Instructor Required: No Is patient in pain?: No Allergies Latex, Natural Rubber Allergy (Intermediate, Verified 11/06/24 16:15) Swelling amoxicillin Allergy (Verified 11/06/24 16:15) Hives naproxen (From Aleve) Allergy (Verified 11/06/24 16:15) Hives sulfamethoxazole (From Bactrim) Allergy (Verified 11/06/24 16:15) Hives trimethoprim (From Bactrim) Allergy (Verified 11/06/24 16:15) Hives Medications ???Medication ???Instructions ???Recorded ???Confirmed ???Type valacyclovir 1 gram tablet 1,000 mg PO BID PRN 06/26/2411/06 History (Valtrex) fluoxetine 20 mg capsule 20 mg PO DAILY #30 caps 07/03/24 0 11/06/24 Rx multivit-min no.71-iron fum 28 cap PO 10/22/24 11/06/24 History mg-folate no.1 1 mg-dha 300 mg capsule (PNV-[place]) hydroxyzine HCl 25 mg tablet 25 mg PO TID PRN anxiety #120 tabs 11/05/24 11/06/24 Rx prochlorperazine maleate 10 mg 10 mg PO Q8H PRN nausea and 11/06/24 Rx tablet (Compazine) vomiting #90 tabs Last Menstrual Period: 09/07/24 Zika: Zika virus screening: Negative : No PFSH PFSH Medical History Elective Dizziness Shortness of breath Hemorrhoid GERD (gastroesophageal reflux disease) Anxiety and depression Genital herpes Surgical History H/O wisdom tooth extraction S/P tonsillectomy H/O eye surgery Family History Grandfather Diabetes Heart disease Grandmother No problems noted. 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 current occupational exposures/hazards: No pets and animals: No history of recent travel: Yes ([place], [place], [place], [place] [facility]) out of state: Yes out of country: Yes sexually active: Yes Smoking Status: Never smoker alcohol intake: current alcohol intake frequency: holidays/special occasions only details: Not while substance use type: former substance user Date of last use: 6 months ago- marijuana gummies and marijuana well-balanced diet: daily or most days caffeine: No eating out: 1-3 times/week during the past year weight has: increased > 10 lbs what type of physical activity do you participate in: none naomi/zoroastrianism: None seatbelt use: always do you feel safe at home: Yes additional social history: FOB/BF - Chintan Ripple: [employer]ist History 5 Elective abortions 1 Hx Para 3 Spontaneous abortions Hx # Term Pregnancies 3 Ectopic pregnancies Hx # Pregnancies Multiple births # of living children 3 Past Pregnancies Del. Date Name GA/Weeks Outcome Route Bth Weight Infant Gen Labor Lgth Anesthesia Del Locatn Provider FOB 03/21/18 Justin 40 live - full term 9lbs 7oz Male epidural [facility] Natali Kilpatrick 06/12/19 Thakur-Goes by Tevin 40 live - full term 8lbs 8oz Male epidural [facility] Dr. Olena Kilpatrick 01/13/21 Isamar 40 live - full term 7lbs 6oz Female epidural [facility] Hafsa Kilpatrick 07/10/24 elective Delivery Date: 03/21/18 Last Updated by: Elvira Travis Prolonged labor, Oligo Delivery Date: 06/12/19 Last Updated by: Elvira Travis hypotension during labor HPI new ob Details: SHIRA ARBOLEDA is a 34 year old who presents for New OB visit. OB Visit TIFFANY Calculator Estimated Delivery Date Method Current WG Current Estimate 06/14/25 LMP (Certain) 8w 5d Other Estimates 06/13/25 Ultrasound #1 8w 6d Estimated Due Date: 06/14/25 Initial Weight: Not Recorded Date -???-???-???-???-???-??? -???-???-???-???-???-??? - EGA Weight BP Urine Prot -???-???-???-???-???-??? -???-???-???-???-???-??? - Glucose FHR FuHt Pres Dilation -???-???-???-???-???-??? -???-???-???-???-???-??? - Effaced St Visit Note 11/06/24 -???-???-???-???-???-??? -???-???-???-???-???-??? - 8w 4d 188 lb 118/80 -???-???-???-???-???-??? -???-???-???-???-???-??? - 170 -???-?? (more content not included)... Normal [facility] Urine cultureOrdered By: Javier Villar on 11-06-2024 Bacteria identified Cx Nom (U) Presumptive Lactobacillus sp. Abnormal [facility] Trial Judge Office Visit Reporton 09-01-2024 Trial Judge Office Visit Report [facility] [address], [address] [place] [address] OFFICE VISIT Date of Service: 09/01/24 MR#: [id number] Acct: [id number] Name: SHIRA ARBOLEDA Rep #: [id number] : 1990 Provider: Dr. Dulce sanchez MD Age/Sex: 34/F [place] [facility] [place]: Signed Intake Vital Signs 07/03/24 16:04 09/01/24 13:41 Height 5 ft 5 in 5 ft 5 in Weight: 172 lb 8 oz 177 lb 2 oz BMI 28.7 29.5 BP 108/65 131/78 H Intake Visit Reasons: FU AFTER PREGNANY TERINMATION Other Sports Coach Or Instructor Required: No Is patient in pain?: No Allergies amoxicillin Allergy (Verified 07/03/24 16:02) Hives naproxen (From Aleve) Allergy (Verified 07/03/24 16:02) Hives sulfamethoxazole (From Bactrim) Allergy (Verified 07/03/24 16:02) Hives trimethoprim (From Bactrim) Allergy (Verified 07/03/24 16:02) Hives Medications ???Medication ???Instructions ???Recorded ???Confirmed ???Type valacyclovir 1 gram tablet 1,000 mg PO BID PRN 06/26/2407/03 History (Valtrex) fluoxetine 20 mg capsule 20 mg PO DAILY #30 caps 07/03/24 1 09/03/23 Rx Post menopausal: No Patient : No : No [facility] Medical History (Updated 09/03/24 @ 01:[address] Dulce Villar MD) Supervision of normal Dizziness Shortness of breath Hemorrhoid GERD (gastroesophageal reflux disease) Anxiety and depression Genital herpes Surgical History H/O wisdom tooth extraction S/P tonsillectomy H/O eye surgery Family History (Updated 09/03/24 @ 01:[address] 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 pets and animals: No history of recent travel: No sexually active: Yes Smoking Status: Never smoker alcohol intake: never substance use type: does not use well-balanced diet: daily or most days caffeine: Yes Type: coffee eating out: 1-3 times/week during the past year weight has: remained stable what type of physical activity do you participate in: none seatbelt use: always do you feel safe at home: Yes additional social history: FOB/BF - Chintan Ripple: [employer] Specialist HPI FU AFTER PREGNANY TERINMATION Details: SHIRA ARBOLEDA is a 34 year old who presents for follow up after termination., she has great support, has had some trouble sleeping but is coping appropriatley. she is just trying tot move forward. cycles have been irregular. she declines contorl at this time. History 4 Elective abortions 1 Hx Para 3 Spontaneous abortions Hx # Term Pregnancies 3 Ectopic pregnancies Hx # Pregnancies Multiple births # of living children 3 Past Pregnancies Del. Date Name GA/Weeks Outcome Route Bth Weight Infant Gen Labor Lgth Anesthesia Del Locatn Provider FOB 03/21/18 Justin 40 live - full term 9lbs 7oz Male epidural [facility] S NGOZI Kilpatrick 06/12/19 Tevin 40 live - full term 8lbs 8oz Male epidural [facility] Hafsa Kilpatrick 01/13/21 Isamar 40 live - full term 7lbs 6oz Female epidural [facility] Hafsa Kilpatrick 07/10/24 elective Delivery Date: 03/21/18 Last Updated by: Elvira Travis Prolonged labor, Oligo Delivery Date: 06/12/19 Last Updated by: Elvira Travis hypotension during labor ROS Const Constitutional: Reports fatigue; Denies fever(s), headache(s), increased appetite, poor appetite, weight gain or weight loss GI GI: Reports as per HPI; Denies abdominal pain, constipation, nausea or vomiting : Reports as per HPI; Denies difficulty voiding, dysuria, hematuria, pelvic pain, urinary frequency, urinary incontinence, urinary hesitancy, urinary urgency, vaginal discharge, vaginal dryness, vaginal odor, vaginal pruritus or other Exam Const General: cooperative, healthy appearing, comfortable, no acute distress and well developed Orientation: alert [facility] Head: normal to inspection and normocephalic Ears: hearing grossly normal bilaterally and external ears normal Nose: external nose normal and nares normal Face and sinus: normal facial exam Neck Neck: normal visual inspection, no lymphadenopathy and trachea midline Thyroid: thyroid normal Resp Effort Inspection: normal respiratory effort Musc Other: gross motor intact no deficits, full bilateral strength Skin General: no rashes or lesions noted Neuro Motor: muscle tone normal throughout Coding Level of Care Code Off vis,est,level 3 Diagnoses Induced Z33.2 Assessmen (more content not included)... Normal [facility] Thyroidon 07-20-2024 Thyroid [facility] Imaging Services [address] [place] [address] Thyroid MR#: [id number] Acct: [id number] Name: SHIRA ARBOLEDA Rep #: [id number] : 1990 F 34 From: Helder Pereyra PCP: Dr. Braulio Bosch MD Status: REG CLI Study: Thyroid Date of Exam: 07/20/24 Exam# [id number] Ordering Dr: Dulce Villar [id number] INDICATION: thyromegaly EXAMINATION: Ultrasound US Thyroid (eg thyroid, parathyroid, parotid) TECHNIQUE: Luna scale and color doppler imaging was performed of the thyroid gland. COMPARISON: 05/07/2022 FINDINGS: RIGHT THYROID LOBE: 5.7 x 1.9 x 1.6 cm. Homogeneous echotexture with normal vascularity. [There is a solid 9 x 7 x 5 mm nodule on the RIGHT no abnormal blood flow or calcification. Findings consistent with a stable TI-RADS 3 lesion.. LEFT THYROID LOBE: 5.6 x 1.4 x 1.5 cm. Homogeneous echotexture with normal vascularity. [2 nodules are present on the LEFT. There is a 5 x 4 x 3 mm hypoechoic solid nodule which is stable, consistent with TI-RADS 3 lesion. Additional 5 x 4 x 2 mm hypoechoic nodule without change also consistent with a TI-RADS 3 lesion. No abnormal blood flow. ISTHMUS: 2.4 mm. No thyroid nodules are present. US/Thyroid IMPRESSION: 1. Stable exam. 2. Multiple bilateral nodules consistent with stable TI-RADS 3 lesion. No required biopsy or follow-up. 3. TI-RADS 3: Mildly Suspicious: FNA if ? 2.5 cm; Follow if ? 1.5 cm at 1, 3, and 5 y Findings Reference Guidance And Recommendations: Thyroid nodules: Reference: Tessler. MASON et al., ACR Thyroid Imaging, Reporting and Data System (TI-RADS): White Paper of the ACR TI-RADS Committee. 2017. ACR. http://dx.doi.org/10.101 6/j.jacr.2017..046 TI RADS 1: Benign: No FNA TI-RADS 2: Not suspicious: No FNA TI-RADS 3: Mildly suspicious: FNA ? 2.5 cm, follow ? 1.5 cm TI-RADS 4: Moderately suspicious: FNA if ? 1.5 cm, follow if ? 1 cm TI-RADS 5: Highly suspicious: FNA if ? 1 cm, follow if ? 0.5 cm Electronically Signed: Helder Benson MD at 1:08 EST , CC: Dr. Braulio Bosch MD; Dr. Dulce Villar MD Director Occupational: Signed Normal [facility] Chlamydia/GC CARRIE aptimaon CHLAMY,NUC ACID Negative Normal Negative [facility] Comment on above: Performed By: #### L 3890.6301, L3890.6102, L509.4006, L100.0100, L509.8002, BTS, L900.0098, L3890.6006 #### [facility] [address] [place], [address] GC BY NUC ACID Negative Normal Negative [facility] Comment on above: Result Comment: Perf ormed at: =G - [facility] [address] [place] [id number] Licensed Sales Producer: Faby Leyva MD, Phone: [phone] Performed By: #### L 3890.6301, L3890.6102, L509.4006, L100.0100, L509.8002, BTS, L900.0098, L3890.6006 #### [facility] [address] [place], [place], [address] Urine Cultureon 07-05-2024 URC Staphylococcus saprophyticus urine sensitivities are not recommended per CLSI guidelines. Treatment with Nitrofurantoin, Trimethoprim/Sulfa or a Fluroquinolone is suggested. Staphylococcus saprophyticus [employer] Count 80,000-100,000 Staphylococcus saprophyticus: REACTION Doxycycline Islt [place] <=0.5 Clindamycin.induced Susc Islt NEG Gentamicin Islt [place] <=0.5 S Linezolid Islt [place] 4 S Nitrofurantoin Islt [place] <=16 S Oxacillin Susc Islt 2 R Tetracycline Islt [place] <=1 S TMP SMX Islt [place] <=10 S Vancomycin Islt [place] 1 S Normal [facility] Comment on above: Performed By: #### L 3890.6301, L3890.6102, L509.4006, L100.0100, L509.8002, BTS, L900.0098, L3890.6006 #### [facility] [address] [place], [place], [address] Trial Judge Office Visit Reporton 07-03-2024 Trial Judge Office Visit Report [facility] [address], [address] [place] [address] OFFICE VISIT Date of Service: 07/03/24 MR#: [id number] Acct: [id number] Name: SHIRA ARBOLEDA Rep #: [id number] : 1990 Provider: Dr. Dulce sanchez MD Age/Sex: 34/F [place] [facility] [place] Status: Signed Intake Vital Signs 02/10/24 11:29 07/03/24 16:04 Height 5 ft 5 in 5 ft 5 in Weight: 172 lb 8 oz BMI 28.7 BP 108/65 Intake Visit Reasons: NOB LMP 05/05 Other Sports Coach Or Instructor Required: No Is patient in pain?: Yes (UTI treated 2 weeks ago with ATB, still having pain) Feel stressed/tense/nervous/a nxious/difficulty sleeping: not at all Allergies amoxicillin Allergy (Verified 07/03/24 16:02) Hives naproxen (From Aleve) Allergy (Verified 07/03/24 16:02) Hives sulfamethoxazole (From Bactrim) Allergy (Verified 07/03/24 16:02) Hives trimethoprim (From Bactrim) Allergy (Verified 07/03/24 16:02) Hives Medications ???Medication ???Instructions ???Recorded ???Confirmed ???Type docosahexaenoic acid 200 mg mg PO 06/26/24 07/03/24 History capsule ( DHA) valacyclovir 1 gram tablet 1,000 mg PO BID PRN 06/26/24 07/03/24 History (Valtrex) doxylamine 10 mg-pyridoxine (vit 1 tab PO BID #60 tabs 07/03/24 07/03/24 Rx B6) 10 mg tablet,delayed release (Diclegis) fluoxetine 20 mg capsule 20 mg PO DAILY #30 caps 07/03/24 07/03/24 Rx nystatin 100,000 unit/mL oral 4 ml PO ONCE #60 mL 07/03/24 07/03/24 Rx suspension Last Menstrual Period: 05/05/24 Zika: Zika virus screening: Negative : No Have you fallen in the past year?: No PFSH PFSH Medical History Dizziness Shortness of breath Hemorrhoid GERD (gastroesophageal reflux disease) Anxiety and depression Genital herpes Surgical History H/O wisdom tooth extraction S/P tonsillectomy H/O eye surgery Family History Grandfather Diabetes Heart disease Grandfather Cancer ovarian Social History adopted: No household members: children number of children: 3 current occupational status: employed 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 pets and animals: No history of recent travel: No sexually active: Yes Smoking Status: Never smoker alcohol intake: never substance use type: does not use well-balanced diet: daily or most days caffeine: Yes Type: coffee eating out: 1-3 times/week during the past year weight has: remained stable what type of physical activity do you participate in: none seatbelt use: always do you feel safe at home: Yes additional social history: FOB/BF - Chintan Ripple: [employer] 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 Date Name GA/Weeks Outcome Route Bth Weight Infant Gen Labor Lgth Anesthesia Del Locatn Provider FOB 03/21/18 Justin 40 live - full term 9lbs 7oz Male epidural [facility] S NGOZI Kilpatrick 06/12/19 Tevin 40 live - full term 8lbs 8oz Male epidural [facility] Hafsa Kilpatrick 01/13/21 Isamar 40 live - full term 7lbs 6oz Female epidural [facility] Hafsa Kilpatrick Delivery Date: 03/21/18 Last Updated by: Elvira Travis Prolonged labor, Oligo Delivery Date: 06/12/19 Last Updated by: Elvira Travis hypotension during labor HPI NOB LMP 05/05 Details: SHIRA ARBOLEDA is a 34 year old who presents for New OB visit. OB Visit TIFFANY Calculator Estimated Delivery Date Method Current WG Current Estimate 02/09/25 LMP (Certain) 8w 3d Other Estimates 02/09/25 Ultrasound #1 8w 3d Estimated Due Date: 02/09/25 Initial Weight: Not Recorded Date -???-???-???-???-???-??? -???-???-???-???-???-??? - EGA Weight BP Urine Prot -???-???-???-???-???-??? -???-???-???-???-???-??? - Glucose FHR FuHt Pres Dilation -???-???-???-???-???-??? -???-???-???-???-???-??? - Effaced St Visit Note 07/03/24 -???-???-???-???-???-??? -???-???-???-???-???-??? - 8w 3d 172 lb 8 oz 108/65 -???-???-???-???-???-??? -???-???-???-???-???-??? - 150 -???-???-???-???-???-??? -???-???-???-???-???-??? - SM- CRL 1.9c m con siwht lmp Menstrual History Last Menstrual Period: 05/05/24 Reported LMP: definite Normal amount/duration: Yes Frequency in days: 28 On hormonal BC at conception: No hCG+: 06/02/24 Antepartum Record Genetic Screening: Congenital Heart Defect: Other, Neural Tube Defect: Other, Hemoglobinopathy Or Carrier: Other, Cystic Fibrosis: Other, Chromosome Abnormality: (more content not included)... Normal [facility] Serum or plasma choriogonado tropin detectionOrdered By: Ashlyn Paredes on 04-26-2023 HCG ( test) Ql < 1 mIU/mL <4 [facility] Comment on above: hCG levels with Gest ational AgeGestational Age hCG mIU/mL (IU/L)0.2 - 1 week 5 - 501-2 weeks 50 - 5002-3 weeks 100 - 05042-1 weeks 500 - 381975-6 weeks 1000 - 733506-8 weeks 62838 - 100,0006-8 weeks 11594 - 200,0002-3 months 27165 - 100,000 Absolute lymphocyte counton 07-03-2022 Lymphocytes Auto (Unsp spec) [#/Vol] 1.89 10*3/uL 0.83-4.51 [facility] Work Phone: Basophil percentageon 2021 Basophils/100 WBC (Bld) 0.3 % 0-1 [facility] Work Phone: Bilirubin [Mass/Vol] 0.40 mg/dL 0.20-1.00 [facility] Work Phone: Comment on above: For patients on eltr ombopag therapy, use of Dimension Zeigler TBIL is not recommended. Chloride [Moles/Vol] 104 mmol/L 98-107 [facility] Work Phone: Eosinophils/100 WBC (Bld) 0.6 % 0-5 [facility] Work Phone: Glucose [Mass/Vol] 99 mg/dL 74-106 [facility] Work Phone: Neutrophils (Bld) [#/Vol] 8.0 10*3/uL 2.0-7.7 [facility] Work Phone: Neutrophils/100 WBC (Bld) 75.4 % 47-70 [facility] Work Phone: Potassium [Moles/Vol] 3.7 mmol/L 3.5-5.1 [facility] Work Phone: Protein [Mass/Vol] 7.7 g/dL 6.4-8.2 [facility] Work Phone: Sodium [Moles/Vol] 138 mmol/L 136-145 [facility] Work Phone: WBC (Bld) [#/Vol] 10.6 10*3/uL 4.4-11.0 [facility] Work Phone: Blood erythrocytes count (nu mber/volume)on 07-03-2022 RBC (Bld) [#/Vol] 4.64 10*6/uL 4.2-5.4 [facility] Work Phone: Blood hemoglobin measurement (mass/volume)on 07-03-2022 Hemoglobin (Bld) [Mass/Vol] 14.1 g/dL 12.0-15.0 [facility] Work Phone: Blood lymphocytes/100 leukoc yteson 07-03-2022 Lymphocytes/100 WBC (Bld) 17.8 % 19-41 [facility] Work Phone: Blood monocytes/100 leukocyt eson 07-03-2022 Monocytes/100 WBC (Bld) 5.4 % 0-10 [facility] Work Phone: Blood platelet mean volumeon 07-03-2022 Platelet mean volume (Bld) [Entitic vol] 10.3 fL 6.2-12.0 [facility] Work Phone: [phone] Determination of erythrocyte mean corpuscular volume (MCV)on 07-03-2022 MCV (RBC) [Entitic vol] 91.6 fL 81-99 [facility] Work Phone: Erythrocyte sedimentation ra efrain 07-03-2022 ESR (Bld) [Velocity] 19 mm/h 0-30 [facility] Work Phone: Hematocrit Auto (Bld) [Volum e fraction]on 07-03-2022 Hematocrit (Bld) [Volume fraction] 42.5 % 37-47 [facility] Work Phone: [phone] Iron measurement (mass/mass) on 07-03-2022 Iron (Unsp spec) [Mass/Mass] 21 ug/dL 50-170 [facility] Work Phone: [phone] Laboratory - Chemistry and C hemistry - challengeon 07-03-2022 ALP [Catalytic activity/Vol] 101 U/L 45-117 [facility] Work Phone: ALT [Catalytic activity/Vol] 27 U/L 13-56 [facility] Work Phone: CO2 [Moles/Vol] 27.0 mmol/L 21.0-32.0 [facility] Work Phone: [phone] Cobalamin (Vitamin B12) [Mass/Vol] 571 pg/mL 211-911 [facility] Work Phone: Globulin (S) [Mass/Vol] 3.8 g/dL 2.2-4.2 [facility] Work Phone: Urea nitrogen/Creatinine [Mass ratio] 14.0 mg/mg 10-20 [facility] Work Phone: Laboratory - Hematology and Cell countson 07-03-2022 Erythrocyte distribution width (RBC) [Entitic vol] 39.7 fL 35.1-43.9 [facility] Work Phone: Erythrocyte distribution width (RBC) [Ratio] 12.0 % 11.6-14.6 [facility] Work Phone: Immature granulocytes/100 WBC (Bld) 0.500 % 0.0-0.9 [facility] Work Phone: Comment on above: IG% - Immature Granu locytes (promyelocytes, myelocytes and metamyelocytes) > 1% indicates that a LEFT SHIFT is Present. MCH (RBC) [Entitic mass] 30.4 pg 27.0-32.0 [facility] Work Phone: Nucleated RBC/100 WBC (Bld) [Ratio] 0 % 0-5 [facility] Work Phone: MCHC Auto (RBC) [Mass/Vol]on 07-03-2022 MCHC (RBC) [Mass/Vol] 33.2 g/dL 32-36 [facility] Work Phone: No Panel Informationon 07-03 Anti-Nuclear Antibody Screen Positive Negative [facility] Work Phone: Comment on above: Performed at: [address] [id number] Director: Steov Moeller PhD, Phone: [phone] Estimated GFR (MDRD) Amer 123 mL/min >60 [facility] Work Phone: Comment on above: GFR Calc Estimated GFR (MDRD) Non-Af Amer 102 mL/min >60 [facility] Work Phone: Comment on above: Non- GFR Calc Thyroid Stimulating Hormone (TSH) 0.56 uIU/mL 0.358-3.74 [facility] Work Phone: Vitamin D 25-Hydroxy 30.0 ng/mL [facility] Work Phone: Comment on above: Vitamin D 25(OH) Sta tus Range Deficiency <20 ng/mL (50nmol/L) Insufficiency 20 - 30 ng/mL (50 - 75 nmol/L) Sufficiency 30 - 100 ng/mL (75 - 250 nmol/L) Toxicity >100 ng/mL (>250 nmol/L) Platelets bldon 07-03-2022 Platelets (Bld) [#/Vol] 231 10*3/uL 150-450 [facility] Work Phone: Serum nuclear antibody titer by immunofluorescenceon 07-03-2022 Nuclear Ab IF (S) [Titer] See comment [facility] Work Phone: Comment on above: TEST RESULT LIMITSAn tinuclear Antibodies, IFA Positive Abnormal Negative <1:80 Borderline 1:80 Positive >1:80Speckled Pattern 1:80 ICAP nomenclature: AC-2,4,5,29Note: For more information about Hep-2 cell patterns useANApatterEthics Resource Group.org, the official website for the InternationalConsensus on Antinuclear Antibody (LAURA) Patterns (ICAP). -----A positive LAURA result may occur in healthy individuals (lowtiter) or be associated with a variety of diseases. Seeinterpretation chart which is not all inclusive:Pattern Antigen Detected Suggested Disease Association Homogeneous DNA(ds,ss), SLE - High titers Nucleosomes, Histones Drug-induced SLE Speckled Sm, POWER CUTTING MACHINE OPERATOR, SCL-70, SLE,MCTD,PSS (diffuse form), SS-A/SS-B Sjogrens Nucleolar SCL-70, PM-1/SCL High titers Scleroderma, PM/DM Centromere Centromere PSS (limited form) w/Crest syndrome variable Nuclear Dot [id number] Primary Biliary Cirrhosis Nuclear GP210, Primary Biliary CirrhosisMembrane betsey A,B,C TESTING PERFORMED AT [facility]. ORIGINAL REPORT ON FILE IN LAB CONTAINS ADDITIONAL TEST SITE INFORMATION. Serum or plasma C reactive p rotein measurement (mass/volume)on 07-03-2022 CRP [Mass/Vol] 42.90 mg/L 0.0-3.0 [facility] Work Phone: Comment on above: C-Reactive Protein ( CRP) provides useful information for thediagnosis, therapy and monitoring of inflammatory processesand associated diseases. For the evaluation of Relative Riskfor Cardiovascular Disease, a High Sensitivity CRP (HSCRP)should be ordered. Serum or plasma albumin chaitanya urement (mass/volume)on 07-03-2022 Albumin [Mass/Vol] 3.9 g/dL 3.2-5.0 [facility] Work Phone: Serum or plasma albumin/glob ulin mass ratioon 07-03-2022 Albumin/Globulin [Mass ratio] 1.0 {ratio} 0.9-2.4 [facility] Work Phone: Serum or plasma calcium chaitanya urement (mass/volume)on 07-03-2022 Calcium [Mass/Vol] 8.7 mg/dL 8.5-10.1 [facility] Work Phone: Serum or plasma creatinine m easurement (mass/volume)on 07-03-2022 Creatinine [Mass/Vol] 0.71 mg/dL 0.55-1.02 [facility] Work Phone: Comment on above: The validity of the calculated GFR & GFRAA in patients over 70 years has not been determined. Clinical correlation is essential. Serum or plasma urea nitroge n measurement (mass/volume)on 07-03-2022 Urea nitrogen [Mass/Vol] 10 mg/dL 7-18 [facility] Work Phone: Serum rheumatoid factor dete ctionon 07-03-2022 Rheumatoid factor Ql (S) < 10.0 IU/mL <15 [facility] Work Phone: Thin prep Papanicolaou smear with manual screeningon 07-03-2022 Thin prep Papanicolaou smear with manual screening 13 U/L 15-37 [facility] Work Phone: Thin prep Papanicolaou smear with manual screening 7 5-15 [facility] Work Phone: Basophil percentageon 2021 Cholesterol [Mass/Vol] 178 mg/dL <200 [facility] Work Phone: Comment on above: <200 mg/dL Desirable 200-240 mg/dL Borderline >240 mg/dL High Risk Glucose [Mass/Vol] 87 mg/dL 74-106 [facility] Work Phone: Triglyceride [Mass/Vol] 70 mg/dL <199 [facility] Work Phone: Comment on above: The drugs N-Acetylcy steine and Metamizole may falsely depress this assay.Serum Triglycerides Reference Interval Normal <150 mg/dL Borderline high 150 - 199 mg/dL High 200 - 499 mg/dL Very High > or = 500 mg/dL Laboratory - Chemistry and C hemistry - challengeon 05-03-2022 Free T4 [Mass/Vol] 0.87 ng/dL 0.76-1.46 [facility] Work Phone: No Panel Informationon 05-03 Miscellaneous Test Comment MAILED SPECIMEN [facility] Work Phone: Thyroid Stimulating Hormone (TSH) 1.01 uIU/mL 0.358-3.74 [facility] Work Phone: Vitamin D 25-Hydroxy 36.8 ng/mL [facility] Work Phone: Comment on above: Vitamin D 25(OH) Sta tus Range Deficiency <20 ng/mL (50nmol/L) Insufficiency 20 - 30 ng/mL (50 - 75 nmol/L) Sufficiency 30 - 100 ng/mL (75 - 250 nmol/L) Toxicity >100 ng/mL (>250 nmol/L) Serum or plasma cholesterol in HDL measurement (mass/volume)on 05-03-2022 Cholesterol in HDL [Mass/Vol] 47 mg/dL >40 [facility] Work Phone: Comment on above: The drugs N-Acetylcy steine and Metamizole may falsely depress this assay. Reference Range HDL <40 mg/dL Low HDL Cholesterol HDL >or= 60 mg/dL High HDL Cholesterol Serum or plasma cholesterol in VLDL measurement (mass/volume)on 05-03-2022 Cholesterol in VLDL [Mass/Vol] 14 mg/dL 5-40 [facility] Work Phone: Serum or plasma low density lipoprotein (LDL) cholesterol measurement (mass/volume)on 05-03-2022 Cholesterol in LDL [Mass/Vol] 117 mg/dL 0-130 [facility] Work Phone: CNOVon 12-09-2018 CNOV Office Visit (UCWSTR ) -------- SHIRA ARBOLEDA ([id number]) 1990 F Date Time Provider Department 12/09/18 8:45 PM [facility] During your visit today, we recorded the following information about you: Referring Provider: SELF [200] Allergies As of Date: 12/09/2018 Noted Allergy Reaction ALLEVE (NAPROXEN) 09/08/2008 4 - Hives AMOXICILLIN 12/07/2005 BACTRIM DS (SULFAMETHOXAZOLE-TRIM*0 12/07/2005 LATEX 03/30/2013 14 - Other: See Comments Comments: Redness and burning Date Reviewed: 12/09/2018 Reviewed by: Pina Solis Ma - Fully Assessed Reason for Visit: Mouth/Lip Problem [68] Cmt: swelling, numbness and redness x this am Primary Visit Diagnosis:Patient left without being seen [Z53.21] Prescriptions as of 12/09/2018 Sig: ALPRAZOLAM 0.5 MG TABLET Take 0.5 mg by mouth as neede* Problem List As Of Date 12/09/2018 Noted Resolved Complex ovarian cyst [N83.299] INVALID FOR*02/24/2014 Elevated androgen levels [E28.1] INVALID FOR* Encounter Status:Closed by PINA SOLIS MA on 12/10/18 Normal [facility] Vital Signs Date Time Vital Sign Value Performing Clinician Jackie arita 04-08-2025 13:03-0400 Body height 165.[address] Braulio Bosch MD Work Phone: [facility] 04-08-2025 13:03-0400 Body mass index (BMI) [Ratio] 37.7 kg/m2 Dr. Braulio Bosch MD Work Phone: [facility] 04-08-2025 13:03-0400 Body weight 102.[address] Braulio Bosch MD Work Phone: 9(317)409-397626 [place] [address] 04-08-2025 13:03-0400 Diastolic blood pressure 77 mm[Hg] Dr. Braulio Bosch MD Work Phone: 9(111)875-101626 [place] [address] 04-08-2025 13:03-0400 Systolic blood pressure 121 mm[Hg] Dr. Braulio Bosch MD Work Phone: [facility] 04-05-2025 14:35-0400 Body temperature 98.7 [degF] Dr. Braulio Bosch MD Work Phone: [facility] 04-05-2025 14:35-0400 Diastolic blood pressure 78 mm[Hg] Dr. Braulio Bosch MD Work Phone: 4(428)856-827326 [place] [address] 04-05-2025 14:35-0400 Heart rate 78 /min Dr. Braulio Bosch MD Work Phone: [facility] 04-05-2025 14:35-0400 Respiratory rate 16 /min Dr. Braulio Bosch MD Work Phone: [facility] 04-05-2025 14:35-0400 SaO2% (BldA) [Mass fraction] 99 % Dr. Braulio Bosch MD Work Phone: [facility] 04-05-2025 14:35-0400 Systolic blood pressure 126 mm[Hg] Dr. Braulio Bosch MD Work Phone: 0(086)189-961429 [place] [address] 04-05-2025 11:27-0400 Body height 165.[address] Braulio Bosch MD Work Phone: 7(487)724-157529 [place] [address] 04-05-2025 11:27-0400 Body mass index (BMI) [Ratio] 37.5 kg/m2 Dr. Braulio Bosch MD Work Phone: 1(459)275-731829 [place] [address] 04-05-2025 11:27-0400 Body weight 102.[address] Braulio Bosch MD Work Phone: 8(571)334-497229 [place] [address] 04-05-2025 10:12-0400 Diastolic blood pressure 66 mm[Hg] Dr. Braulio Bosch MD Work Phone: 4(527)261-484429 [place] [address] 04-05-2025 10:12-0400 Heart rate 87 /min Dr. Braulio Bosch MD Work Phone: 7(406)282-581529 [place] [address] 04-05-2025 10:12-0400 Systolic blood pressure 110 mm[Hg] Dr. Braulio Bosch MD Work Phone: 2(768)904-474329 [place] [address] 04-05-2025 10:07-0400 Body mass index (BMI) [Ratio] 37.5 kg/m2 Dr. Brauloi Bosch MD Work Phone: 0(951)450-363929 [place] [address] 04-05-2025 10:07-0400 Body weight 102.[address] Braulio Bosch MD Work Phone: 8(624)766-378829 [place] [address] 04-05-2025 09:49-0400 Body temperature 98.3 [degF] Dr. Braulio Bosch MD Work Phone: 1(361)970-062529 [place] [address] 04-05-2025 09:49-0400 Respiratory rate 16 /min Dr. Braulio Bosch MD Work Phone: 4(498)125-031229 [place] [address] 03-23-2025 10:00-0400 Body height 165.[address] Braulio Bosch MD Work Phone: 8(871)032-285429 [place] [address] 03-23-2025 10:00-0400 Body mass index (BMI) [Ratio] 36.9 kg/m2 Dr. Braulio Bosch MD Work Phone: 1(364)561-767429 [place] [address] 03-23-2025 10:00-0400 Body weight 100.[address] Braulio Bosch MD Work Phone: 8(680)765-487329 [place] [address] 03-23-2025 10:00-0400 Diastolic blood pressure 72 mm[Hg] Dr. Braulio Bosch MD Work Phone: 8(791)250-447629 [place] [address] 03-23-2025 10:00-0400 Systolic blood pressure 114 mm[Hg] Dr. Braulio Bosch MD Work Phone: 6(837)665-143629 [place] [address] 02-26-2025 15:39-0400 Body height 165.[address] Braulio Bosch MD Work Phone: 0(333)884-142029 [place] [address] 02-26-2025 15:39-0400 Body mass index (BMI) [Ratio] 35.9 kg/m2 Dr. Braulio Bosch MD Work Phone: 8(698)636-821129 [place] [address] 02-26-2025 15:39-0400 Body weight 98.[address] Braulio Bosch MD Work Phone: 9(306)889-241629 [place] [address] 02-26-2025 15:39-0400 Diastolic blood pressure 76 mm[Hg] Dr. Braulio Bosch MD Work Phone: 6(313)558-149629 [place] [address] 02-26-2025 15:39-0400 Systolic blood pressure 117 mm[Hg] Dr. Braulio Bosch MD Work Phone: 8(489)646-447029 [place] [address] 01-29-2025 08:45-0400 Body height 165.[address] Braulio Bosch MD Work Phone: 3(275)246-139829 [place] [address] 01-29-2025 08:45-0400 Body mass index (BMI) [Ratio] 34.1 kg/m2 Dr. Braulio Bosch MD Work Phone: 2(234)134-930329 [place] [address] 01-29-2025 08:45-0400 Body weight 93.[address] Braulio Bosch MD Work Phone: 5(395)989-423129 [place] [address] 01-29-2025 08:45-0400 Diastolic blood pressure 70 mm[Hg] Dr. Braulio Bosch MD Work Phone: 0(053)960-064329 [place] [address] 01-29-2025 08:45-0400 Systolic blood pressure 114 mm[Hg] Dr. Braulio oBsch MD Work Phone: 3(439)486-890229 [place] [address] 01-01-2025 10:14-0400 Body height 165.[address] Braulio Bosch MD Work Phone: 5(924)302-319029 [place] [address] 01-01-2025 10:13-0400 Body mass index (BMI) [Ratio] 33.5 kg/m2 Dr. Braulio Bosch MD Work Phone: 5(675)663-050429 [place] [address] 01-01-2025 10:13-0400 Body weight 91.[address] Braulio Bosch MD Work Phone: 1(509)870-348629 [place] [address] 01-01-2025 10:13-0400 Diastolic blood pressure 69 mm[Hg] Dr. Braulio Bosch MD Work Phone: 6(144)217-804229 [place] [address] 01-01-2025 10:13-0400 Systolic blood pressure 106 mm[Hg] Dr. Braulio Bosch MD Work Phone: 2(476)480-432229 [place] [address] 12-03-2024 08:30-0400 Body height 165.[address] Braulio Bosch MD Work Phone: 7(756)658-170829 [place] [address] 12-03-2024 08:30-0400 Body mass index (BMI) [Ratio] 32.3 kg/m2 Dr. Braulio Bosch MD Work Phone: 6(289)839-085429 [place] [address] 12-03-2024 08:30-0400 Body weight 87.[address] Braulio Bosch MD Work Phone: 6(478)720-538829 [place] [address] 12-03-2024 08:30-0400 Diastolic blood pressure 79 mm[Hg] Dr. Braulio Bosch MD Work Phone: 0(274)369-025429 [place] [address] 12-03-2024 08:30-0400 Systolic blood pressure 119 mm[Hg] Dr. Braulio Bosch MD Work Phone: 0(740)850-770826 [place] [address] 11-16-2024 13:00-0400 Body height 165.[address] Braulio Bosch MD Work Phone: 0(469)079-973229 [place] [address] 11-16-2024 13:00-0400 Body mass index (BMI) [Ratio] 31.5 kg/m2 Dr. Braulio Bosch MD Work Phone: 7(919)738-605929 [place] [address] 11-16-2024 13:00-0400 Body weight 85.[address] Braulio Bosch MD Work Phone: 6(359)928-317329 [place] [address] 11-16-2024 13:00-0400 Diastolic blood pressure 74 mm[Hg] Dr. Braulio Bosch MD Work Phone: 5(981)884-926129 [place] [address] 11-16-2024 13:00-0400 Systolic blood pressure 116 mm[Hg] Dr. Braulio Bosch MD Work Phone: 1(385)126-163929 [place] [address] 11-06-2024 16:17-0400 Body height 165.[address] Braulio Bosch MD Work Phone: 7(779)371-050329 [place] [address] 11-06-2024 16:16-0400 Body mass index (BMI) [Ratio] 31.2 kg/m2 Dr. Braulio Bosch MD Work Phone: 5(718)731-604329 [place] [address] 11-06-2024 16:16-0400 Body weight 85.[address] Braulio Bosch MD Work Phone: 5(826)474-635329 [place] [address] 11-06-2024 16:16-0400 Diastolic blood pressure 80 mm[Hg] Dr. Braulio Bosch MD Work Phone: 9(522)064-018529 [place] [address] 11-06-2024 16:16-0400 Systolic blood pressure 118 mm[Hg] Dr. Braulio Bosch MD Work Phone: 2(811)524-274029 [place] [address] 09-01-2024 13:41-0500 Body mass index (BMI) [Ratio] 29.5 kg/m2 Dr. Braulio Bosch MD Work Phone: [facility] 09-01-2024 13:41-0500 Body weight 80.[address] Braulio Bosch MD Work Phone: [facility] 09-01-2024 13:41-0500 Diastolic blood pressure 78 mm[Hg] Dr. Braulio Bosch MD Work Phone: [facility] 09-01-2024 13:41-0500 Systolic blood pressure 131 mm[Hg] Dr. Braulio Bosch MD Work Phone: [facility] 07-06-2022 20:31-0500 Diastolic blood pressure 76 mm[Hg] Dr. Ariadne Rivers Work Phone: [facility] Work Phone: 07-06-2022 20:31-0500 Heart rate 85 /min Dr. Ariadne Rivers Work Phone: [facility] Work Phone: 07-06-2022 20:31-0500 Respiratory rate 18 /min Dr. Ariadne Rivers Work Phone: [facility] Work Phone: 07-06-2022 20:31-0500 SaO2% (BldA) [Mass fraction] 100 % Dr. Ariadne Rivers Work Phone: [facility] Work Phone: 07-06-2022 20:31-0500 Systolic blood pressure 115 mm[Hg] Dr. Ariadne Rivers Work Phone: [facility] Work Phone: 07-06-2022 15:44-0500 Body height 165.[address] Ariadne Rivers Work Phone: [facility] Work Phone: 07-06-2022 15:44-0500 Body mass index (BMI) [Ratio] 28.3 kg/m2 Dr. Ariadne Rivers Work Phone: [facility] Work Phone: 07-06-2022 15:44-0500 Body temperature 98.9 [degF] Dr. Ariadne Rivers Work Phone: [facility] Work Phone: 07-06-2022 15:44-0500 Body weight 77.[address] Ariadne Rivers Work Phone: [facility] Work Phone: 06-17-2022 00:20-0500 Diastolic blood pressure 74 mm[Hg] Dr. Ariadne Rivers Work Phone: [facility] Work Phone: 06-17-2022 00:20-0500 Heart rate 78 /min Dr. Ariadne Rivers Work Phone: [facility] Work Phone: 06-17-2022 00:20-0500 SaO2% (BldA) [Mass fraction] 100 % Dr. Ariadne Rivers Work Phone: [facility] Work Phone: 06-17-2022 00:20-0500 Systolic blood pressure 130 mm[Hg] Dr. Ariadne Rivers Work Phone: [facility] Work Phone: 06-16-2022 23:03-0500 Body height 165.[address] Ariadne Rivers Work Phone: [facility] Work Phone: 06-16-2022 23:03-0500 Body mass index (BMI) [Ratio] 28.3 kg/m2 Dr. Ariadne Rivers Work Phone: [facility] Work Phone: 06-16-2022 23:03-0500 Body temperature 98.1 [degF] Dr. Ariadne Rivers Work Phone: [facility] Work Phone: 06-16-2022 23:03-0500 Body weight 77.[address] Ariadne Rivers Work Phone: [facility] Work Phone: 06-16-2022 23:03-0500 Respiratory rate 16 /min Dr. Ariadne Rivers Work Phone: [facility] Work Phone: 05-17-2022 08:25-0500 Body mass index (BMI) [Ratio] 28.8 kg/m2 Dr. Ariadne Rivers Work Phone: [facility] Work Phone: 05-17-2022 08:25-0500 Body temperature 98 [degF] Dr. Ariadne Rivers Work Phone: [facility] Work Phone: 05-17-2022 08:25-0500 Body weight 78.[address] Ariadne Rivers Work Phone: [facility] Work Phone: 05-17-2022 08:25-0500 Diastolic blood pressure 77 mm[Hg] Dr. Ariadne Rivers Work Phone: [facility] Work Phone: 05-17-2022 08:25-0500 Heart rate 83 /min Dr. Ariadne Rivers Work Phone: [facility] Work Phone: 05-17-2022 08:25-0500 Respiratory rate 16 /min Dr. Ariadne Rivers Work Phone: [facility] Work Phone: 05-17-2022 08:25-0500 SaO2% (BldA) [Mass fraction] 98 % Dr. Ariadne Rivers Work Phone: [facility] Work Phone: 05-17-2022 08:25-0500 Systolic blood pressure 120 mm[Hg] Dr. Ariadne Rivers Work Phone: [facility] Work Phone: 05-03-2022 08:18-0400 Body height 167.[address] Ariadne Rivers Work Phone: [facility] Work Phone: 05-03-2022 08:18-0400 Body mass index (BMI) [Ratio] 27.9 kg/m2 Dr. Ariadne Rivers Work Phone: [facility] Work Phone: 05-03-2022 08:18-0400 Body weight 78.[address] Ariadne Rivers Work Phone: [facility] Work Phone: 05-03-2022 08:18-0400 Diastolic blood pressure 60 mm[Hg] Dr. Ariadne Rivers Work Phone: [facility] Work Phone: 05-03-2022 08:18-0400 Systolic blood pressure 102 mm[Hg] Dr. Ariadne Rivers Work Phone: [facility] Work Phone: Encounters Encounter Date Encounter Type Care Provider Facility Start: 04-23-2025 End: 04-23-2025 ambulatory Braulio Bosch Facility:[facility] Start: 04-08-2025 End: 04-08-[address] Dulce Villar MD -[facility] Work Phone: Start: 04-08-2025 End: 04-08-[address] Braulio Bosch MD Work Phone: -[facility] Start: 04-05-2025 End: 04-05-2025 Emergency department patient visit Dr. Braulio Bosch MD Work Phone: -Emergency Department Work Phone: Start: 04-05-2025 ambulatory Braulio Bosch Fackrzysztof lity:[facility] Start: 04-05-2025 Non-patient / Non-visit Mary Madrigal CNM -[facility] Start: 04-05-2025 End: 04-05-[address] Braulio Bosch MD Work Phone: -[facility] Start: 04-05-2025 End: 04-05-2025 Patient encounter procedure Mary Madrigal CNM -[facility] Work Phone: Start: 03-26-2025 End: 03-26-[address] Braulio Bosch MD Work Phone: -Laboratory Start: 03-26-2025 End: 03-26-2025 Patient encounter procedure Bertha May IMAGING TECH-C -Laboratory Work Phone: Start: 03-26-2025 End: 03-26-2025 ambulatory Bertha May IMAGING TECH Facility:[facility] Start: 03-23-2025 End: 03-23-2025 Patient encounter procedure Bertha May IMAGING TECH-C -[facility] Work Phone: Start: 03-23-2025 End: 03-23-[address] Braulio Bosch MD Work Phone: -[facility] Start: 03-23-2025 End: 03-23-2025 ambulatory Dulce Villar Facility:[facility] Start: 02-26-2025 End: 02-26-[address] Dulce Villar MD -[facility] Work Phone: Start: 02-26-2025 End: 02-26-[address] Braulio Bosch MD Work Phone: -[facility] Start: 02-15-2025 End: 02-15-2025 ambulatory MD CARDOZA [facility] Start: 01-29-2025 End: 01-29-[address] Braulio Bosch MD Work Phone: -Laboratory Start: 01-29-2025 End: 01-29-[address] Dulce Villar MD -Laboratory Work Phone: Start: 01-29-2025 End: 01-29-2025 Patient encounter procedure Mary Madrigal CNM -[facility] Work Phone: Start: 01-29-2025 End: 01-29-[address] Braulio Bosch MD Work Phone: -[facility] Start: 01-29-2025 End: 01-29-2025 ambulatory Dulce Villar Facility:[facility] Start: 01-25-2025 End: 01-25-2025 ambulatory MD CARDOZA [facility] Start: 01-01-2025 End: 01-01-[address] Ashlyn Lagos DO -[facility] Work Phone: Start: 01-01-2025 End: 01-01-[address] Braulio Bosch MD Work Phone: [facility] Start: 12-03-2024 End: 12-03-[address] Braulio Bosch MD Work Phone: [facility] Work Phone: Start: 12-03-2024 End: 12-03-[address] Dulce Villar MD -Laboratory Specimen Work Phone: Start: 12-03-2024 End: 12-03-[address] Dulce Villar MD -[facility] Work Phone: Start: 12-03-2024 End: 12-03-[address] Braulio Bosch MD Work Phone: [facility] Work Phone: Start: 12-03-2024 End: 12-03-2024 ambulatory Dulce Villar Facility:[facility] Start: 11-16-2024 End: 11-16-[address] Dulce Villar MD -[facility] Work Phone: Start: 11-16-2024 End: 11-16-[address] Braulio Bosch MD Work Phone: [facility] Work Phone: Start: 11-16-2024 End: 11-16-2024 ambulatory Dulce Villar Facility:[facility] Start: 11-13-2024 ambulatory Braulio Krugeri lity:[facility] Start: 11-06-2024 End: 11-06-[address] Braulio Bosch MD Work Phone: [facility] Work Phone: Start: 11-06-2024 End: 11-06-[address] Dulce Villar MD -Laboratory, Specimen Work Phone: Start: 11-06-2024 End: 11-06-[address] Dulce Villar MD -[facility] Work Phone: Start: 11-06-2024 End: 11-06-2024 ambulatory Chris Danitza Facility:[facility] Start: 11-06-2024 End: 11-06-2024 [facility] Start: 10-23-2024 Non-patient / Non-visit Stacy Barron RN -[facility] Work Phone: Start: 10-23-2024 ambulatory Braulio Bosch Faci [facility]ity:[facility] Start: 09-01-2024 End: 09-01-[address] Dulce Villar MD -[facility] Work Phone: Start: 09-01-2024 End: 09-01-2024 ambulatory Braulio Bosch Facility:[facility] Start: 07-20-2024 End: 07-20-[address] Dulce Villar MD -Ultrasound, [facility] Work Phone: Start: 07-20-2024 End: 07-20-2024 ambulatory Braulio Bosch Facility:[facility] Start: 07-03-2024 End: 07-03-2024 ambulatory Dulce Villar Facility:[facility] Start: 07-03-2024 End: 07-03-2024 ambulatory Braulio Bocsh Facility:[facility] Start: 06-26-2024 ambulatory Stacy Barron [place] [place]: 04-26-2023 End: 04-26-2023 ambulatory [facility] Work Phone: Start: 04-26-2023 End: 04-26-2023 Patient encounter procedure [facility] Work Phone: Start: 07-06-2022 End: 07-06-2022 Emergency department patient visit Dr. Ariadne Rivers Work Phone: [facility]Emergency Department Start: 07-03-2022 End: 07-03-[address] Ariadne Rivers Work Phone: [facility] Work Phone: Start: 07-03-2022 End: 07-03-[address] Ariadne Rivers Work Phone: [facility] Start: 06-16-2022 End: 06-17-2022 Emergency department patient visit Dr. Ariadne Rivers Work Phone: [facility] Start: 05-17-2022 End: 05-17-[address] Ariadne Rivers Work Phone: [facility] Start: 05-07-2022 End: 05-07-[address] Ariadne Rivers Work Phone: [facility] Work Phone: Start: 05-07-2022 End: 05-07-[address] Ariadne Rivers Work Phone: [facility] Start: 05-03-2022 End: 05-03-[address] Ariadne Rivers Work Phone: [facility] Work Phone: Start: 05-03-2022 End: 10-27-[address] Ariadne Rivers Work Phone: [facility] Procedures Date Procedure Procedure Detail Performing Clinician Start: 04-05-2025 CT angiography of ch est with contrast Dr. Braulio Bosch MD Work Phone: Start: 04-05-2025 Radiologic exam chest [address] Braulio Bosch MD Work Phone: Start: 04-05-2025 D-dimer assay, quantitative Dr. Braulio Bosch MD Work Phone: Comment on above: D-Dimer ELEVATED (>0 .49): Additional studies and clinicalassessments are indicated to conclude diagnosis of:Deep Vein Thrombosis (DVT) or Pulmonary Embolism (PE)CRITICAL VALUE CALLED TO [id number]/29/25 Marv Treasure Orozco.RESULTS READ BACK BY SAME. Start: 04-05-2025 End: 04-05-[address] Braulio Bosch MD Work Phone: Start: 03-23-2025 Serologic test for syphilis Dr. Brualio Bosch MD Work Phone: Start: 01-29-2025 Methadone measurement, urine Dr. Braulio Bosch MD Work Phone: Start: 12-03-[address] David Bosch MD Work Phone: Start: 11-16-2024 Hepatitis C antibody measurement Dr. Braulio Bosch MD Work Phone: Comment on above: Reactive: Presumptiv e evidence of antibodies to HCV. Follow CDC recommendations for supplemental testing.Non-Reactive: Antibodies to HCV were not detected; does not exclude the possibility of exposure to HCVReactive Results are presumptive evidence of antibodies to HCV. Follow CDC recommendations for supplemental testing.Order confirmation testing: HCV Quant by PCR testing - HCVPCR #[id number] Non Reactive: < 0.8 Equivocal: >/= 0.8 to < 1.0 Reactive: >/= 1.0The CDC requires that a reactive/equivocal HCV antibody result be sent out for confirmation. HCV Quant by PCR testing. Start: 11-16-[address] Mariusz Bosch MD Work Phone: Start: 11-16-[address] Braulio Bosch MD Work Phone: Comment on above: Antibody Result: Int erpretationNon-Reactive: Non- ImmuneReactive: ImmuneThe following results were obtained with the [employer] Rubella IgG assay. Results from assays of other manufacturers cannot be used interchangeably. Start: 11-16-2024 Serologic test for syphilis Dr. Braulio Bosch MD Work Phone: Start: 11-06-[address] David Bosch MD Work Phone: Start: 07-20-2024 US scan of thyroid Dr. Braulio Bosch MD Work Phone: Start: 07-06-2022 MRI of brain with contrast Dr. Ariadne Rivers Work Phone: Start: 07-03-2022 Plain chest X-ray Dr. Tammi Rivers Work Phone: Start: 06-16-2022 Plain chest X-ray Dr. Tammi Rivers Work Phone: Start: 05-07-2022 US scan of thyroid Dr. Ariadne Rivers Work Phone: Plan of Treatment Date Care Activity Detail Author Start: 04-08-2025 CBC W Auto Different ial panel - Blood [facility] Start: 04-08-2025 Comprehensive metabo lic 2000 panel - Serum or Plasma [facility] Start: 04-05-2025 [facility] Start: 04-05-2025 Nonstress test [facility] Start: 04-05-2025 Obstetric monitoring [facility] Start: 04-05-2025 Vital signs measurements [facility] Start: 04-05-2025 End: 04-05-2025 [facility] Start: 04-05-2025 Catheterization of vein [facility] Start: 03-23-2025 CBC W Auto Different ial panel - Blood [facility] Start: 03-23-2025 Measurement of gluco se 2 hours after glucose challenge for glucose tolerance test [facility] Start: 03-23-2025 Serologic test for syphilis [facility] Start: 03-23-2025 [facility] Start: 07-03-2022 [facility] Work Phone: Alanine aminotransfe rase [Enzymatic activity/volume] in Serum or Plasma [facility] Albumin [Mass/volume ] in Serum or Plasma [facility] Alkaline phosphatase [Enzymatic activity/volume] in Serum or Plasma [facility] Anion gap in Serum or Plasma [facility] Bilirubin, total measurement [facility] BUN/Creatinine ratio [facility] Calcium [Mass/volume ] in Serum or Plasma [facility] Carbon dioxide, tota l [Moles/volume] in Central venous blood [facility] CBC W Auto Different ial panel - Blood [facility] Creatinine [Mass/vol ume] in Serum or Plasma [facility] Erythrocyte mean cor puscular volume determination [facility] Erythrocyte mean cor puscular volume determination [facility] Glucose [Mass/volume ] in Serum or Plasma [facility] Hematocrit [Volume F raction] of Blood [facility] Hematocrit [Volume F raction] of Blood [facility] Hemoglobin [Mass/volume] in Blood [facility] Hemoglobin [Mass/volume] in Blood [facility] Hepatitis B virus bran rface Ag [Presence] in Serum [facility] Leukocytes [#/volume] in Blood [facility] Leukocytes [#/volume] in Blood [facility] Mean corpuscular hem oglobin concentration determination [facility] Mean corpuscular hem oglobin concentration determination [facility] Mean corpuscular hem oglobin determination [facility] Mean corpuscular hem oglobin determination [facility] Measurement of gluco se 2 hours after glucose challenge for glucose tolerance test [facility] Measurement of renal function [facility] Neutrophil count [facility] Neutrophil count [facility] Neutrophil percent d ifferential count [facility] Neutrophil percent d ifferential count [facility] Nuclear Ab [Titer] i n Serum by Immunofluorescence [facility] Work Phone: Patient Education [facility] Work Phone: Patient referral [facility] Work Phone: Platelets [#/volume] in Blood [facility] Platelets [#/volume] in Blood [facility] Potassium measurement [facility] Protein/Creatinine [Ratio] in Urine [facility] Red blood cell count [facility] Red blood cell count [facility] Red cell distributio n width determination [facility] Red cell distributio n width determination [facility] Serologic test for syphilis [facility] Serum chloride measurement [facility] Sodium measurement [facility] Total protein measurement [facility] Ultrasound scan for growth [facility] Urea nitrogen [Mass/ volume] in Serum or Plasma [facility] Immunizations Immunization Date Immunization Notes [facility] tetanus toxoid, reduced diphtheria toxoid, and acellular pertussis vaccine, adsorbed Dr. Braulio Bosch MD Work Phone: [facility] Payers Date Payer Category Payer Self-pay [id number] 2024 Unknown [id number] 2015 Private Health Insurance [facility] [id number] 1990 Unknown [id number] 2.16. [id number] 1990 Unknown [id number] 2.16. 840.1.943118.3.579.2.479 Unknown [id number] 2.16.8 40.1.345654.3.579.2.462 Unknown [id number] 2.16.8 40.1.664001.3.579.2.462 Unknown [id number] 2.16.8 40.1.991082.3.579.2.462 Unknown [id number] 2.16.8 40.1.356955.3.579.2.462 Unknown [id number] 2.16.8 40.1.557882.3.579.2.462 Unknown [id number] 2.16.8 40.1.202337.3.579.2.462 Unknown [id number] 2.16.8 40.1.903772.3.579.2.462 Unknown [id number] 2.16.8 40.1.876277.3.579.2.462 Unknown [id number] 2.16.8 40.1.490095.3.579.2.462 Unknown [id number] 2.16.8 40.1.231154.3.579.2.462 Unknown [id number] 2.16.8 40.1.023029.3.579.2.462 Unknown [id number] 2.16.8 40.1.452263.3.579.2.462 Unknown [id number] 2.16.8 40.1.963602.3.579.2.462 Unknown [id number] 2.16.8 40.1.784581.3.579.2.462 Unknown [id number] 2.16.8 40.1.920342.3.579.2.462 Unknown [id number] 2.16.8 40.1.502264.3.579.2.462 Unknown [id number] 2.16.8 40.1.943218.3.579.2.462 Unknown [id number] 2.16.8 40.1.851985.3.579.2.462 Unknown [id number] 2.16.8 40.1.771689.3.579.2.462 Unknown [id number] 2.16.8 40.1.289585.3.579.2.462 Unknown [id number] 2.16.8 40.1.210048.3.579.2.462 Unknown [id number] 2.16.8 40.1.708237.3.579.2.462 Unknown [id number] 2.16.8 40.1.147504.3.579.2.462 Unknown [id number] 2.16.8 40.1.115757.3.579.2.462 Unknown [id number] 2.16.8 40.1.342534.3.579.2.462 Unknown [id number] 2.16.8 40.1.235640.3.579.2.462 Social History Date Type Detail Facility Start: 05-03-2022 End: 07-06-2022 Tobacco smoking status NHIS Unknown if ever smoked [facility] Start: 06-12-2019 None [facility] Start: 1990 Sex Assigned At Female [facility] Start: 10-22-2024 End: 04-05-2025 Tobacco smoking status NHIS Never smoked tobacco (finding) [facility] Sex Female [facility] Goals Date Patient Goal Desired Activity /State Mental Status Date Assessment Result Facility 04-05-2025 Cognitive function Voice/Name [facility] Work Phone: 07-06-2022 Cognitive function Level Of Cons ciousness Awake;Alert;Appropriate;Follow s Commands [facility] Work Phone: Clinical Notes 09-01-2024 to 04-08-2025 Note Date & Type Note Facility 04-08-2025 Progress note [facility] 04-05-2025 Discharge summary [facility] 04-05-2025 Radiology Diagnostic study note [facility] Imaging Services [address] [place], [place] [address] CTA Chest W/WO Contrast MR#: [id number] Acct: [id number] Name: SHIRA ARBOLEDA Rep #: [id number] : 1990 F 34 From: Michelle Purvis MD PCP: Dr. Braulio Bosch MD Status: REG ER Study:CTA Chest W/WO Contrast Date of Exam: 04/05/25 Exam# [id number] Ordering Dr: Cal Gonzalez MD PROCEDURE: CTA CHEST W/WO CONTRAST 04/05/2025 REASON FOR EXAM: SHIELD ABD . CP Dizzy shortness of breath TECHNIQUE: Procedure Code: CTCTACHWW Modality: CT Procedure: CTA CHEST W/WO CONTRAST Multiplanar Sagittal and Coronal images were obtained. CONTRAST: Isovue 370 VOLUME: 100 mL One or more dose reduction techniques were used (e.g., Automated exposure control, adjustment of the mA and/or kV according to patient size, use of iterative reconstruction technique). RADIATION DOSE SUMMARY: CTDlvol: 14.6 mGy DLP: 418 mGycm COMPARISON: None FINDINGS: Thoracic Aorta: Unremarkable. Heart: Unremarkable. Pulmonary Vessels: There is no filling defect demonstrated in the pulmonary arterial trunk or outflow tract. Hardware: None Lymph nodes: None Lungs and Airways: Lungs are clear. Pleura: Unremarkable. Upper Abdomen: Unremarkable. Bones: Unremarkable. CT/CTA Chest W/WO Contrast IMPRESSION: There is no evidence of pulmonary embolus within the pulmonary artery or outflowtrack. Unremarkable exam. Reading Location: [place] [address] CC: Dr. Braulio Bosch MD; Dr. Alejandro Gonzalez MD ~ Director Occupational: Signed [facility] 04-05-2025 Discharge summary Note Date/Time April 05, 2025 2:36pm [facility] Medical Records Department [address] [place] [address] Emergency Department Summary 04/05/25 MR#: [id number] Acct: [id number] Name: SHIRA ARBOLEDA Rep #:[id number] : 1990 34 From: Alejandro Gonzalez MD PCP: Dr. Braulio Bosch MD Status :DEP ER Location: ED HPI History of Present Illness Chief Complaint: Dizziness Informant: patient Onset/Context/Timing Onset: Today and Yesterday Context: Gradual Onset Timing: Intermittent Current Severity: Mild Maximum Severity: Mild Narrative Narrative: 34-year-old female currently 30 weeks . G4, P3 and Ab0. States that she was already seen in labor delivery today. They sent her down she was complaining of dizziness and says she was having [place] Amato contractions. Atypical chest pain. Denies any cardiac history. No history of DVT or PE. No hemoptysis. No pleuritic pain. No leg pain or swelling. She does have a history of anxiety and states it feels like she is going to have an anxiety attack. She denies any vaginal bleeding. No dysuria. No fever or cough. No shortness of breath. Prior similar symptoms: Yes Recent Illness/Hospitalization: No [facility] Medical History Anxiety and depression Elective Dizziness Shortness of breath Hemorrhoid GERD (gastroesophageal reflux disease) Genital herpes Home Medications ?Medication ?Instructions ?Recorded ?Last Taken ?Type multivit-min no.71-iron fum 28 cap PO 10/22/24 5 History mg-folate no.1 1 mg-dha 300 mg capsule (PNV-[place]) hydroxyzine HCl 25 mg tablet 25 mg PO TID PRN anxiety #120 tabs 02/18/25 Unknown Rx fluoxetine 40 mg capsule 40 mg PO DAILY #30 caps 02/06 09/01 Unknown Rx Allergy/AdvReac Type Severity Reaction Status Date / Time Latex, Natural Rubber Allergy Intermediate Swelling Verified 04/05/25 11:27 amoxicillin Allergy Hives Verified 04/05/25 11:27 naproxen (From Aleve) Allergy Hives Verified 04/05/25 11:27 sulfamethoxazole (From Allergy Hives Verified 04/05/25 11:27 Bactrim) trimethoprim (From Bactrim) Allergy Hives Verified 04/05/25 11:27 Family History Grandfather Diabetes Heart disease Grandmother No problems noted. 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 current occupational exposures/hazards: No pets and animals: No history of recent travel: Yes ([place], [place], [place], [place]) out of state: Yes out of country: Yes sexually active: Yes Smoking Status: Never smoker alcohol intake: current alcohol intake frequency: holidays/special occasions only details: Not while substance use type: former substance user Date of last use: 6 months ago- gummies and marijuana well-balanced diet: daily or most days caffeine: No eating out: 1-3 times/week during the past year weight has: increased > 10 lbs what type of physical activity do you participate in: none naomi/zoroastrianism: None seatbelt use: always do you feel safe at home: Yes additional social history: FOB/BF - Chintan 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 Constitutional Constitutional ED: Denies chills or fever(s) Eyes Eyes: Denies blurry vision ENT ENT ED: Denies ear pain Cardiovascular Cardiovascular: Reports chest pain and palpitations Respiratory/Chest Respiratory/Chest: Denies cough or dyspnea Gastrointestinal Gastrointestinal: Denies abdominal pain, diarrhea or vomiting Genitourinary Genitourinary ED: Denies dysuria or hematuria Musculoskeletal Musculoskeletal: Denies arthralgias or back pain Integumentary Denies abscess or Abrasions Neurologic Neurologic: Denies headache(s) Psychiatric Psychiatric: Reports anxiety Endocrine Endocrinology: Denies cold intolerance Hematologic/Lymphatic Hematologic/Lymphatic: Reports none Allergic/Immunologic Allergic/Immunologic ED: Denies mouth swelling, tongue swelling, urticaria or other EXAM Physical Exam Narrative Exam Narrative: Well-appearing 34-year-old female. Vital signs stable afebrile does not look septic toxic no acute distress. Mildly anxious. Pulse ox 97% room air no hypoxia. H EENT exam pupils round react light. Moist mutes members. Neck nontender no JVD. No lymphadenopathy. Lungs clear to auscultation bilaterally. Heart regular rhythm rate about 90 no murmur. Chest wall ribs nontender. Abdomen soft, nontender nondistended normal bowel sounds without peritoneal signs. Gravid nontender uterus. Moving all 4 extremities. 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 Equal symmetrical radial pulses. Calves are nontender without edema or cords. Dorsi plantarflexion intact. Back nontender. Neurologically she is awake alert. Answering questions following commands. Benign exam. Const Vital Signs: 04/05/25 11:27 04/05/25 12:11 04/05/25 12:23 Temperature 99.8 F H 98.1 F Temperature Source Oral Oral Pulse Rate 98 88 Respiratory Rate 16 14 Blood Pressure 109/70 132/71 H Blood Pressure Mean 83 91 Pulse Ox 97 98 Oxygen Delivery Method Room Air Room Air Room Air 04/05/25 13:29 Temperature Temperature Source Pulse Rate 78 Respiratory Rate 14 Blood Pressure 124/68 H Blood Pressure Mean 86 Pulse Ox 98 Oxygen Delivery Method Room Air Positive well nourished and well developed; Negative for cachectic, contracturesor unkempt General Appearance ED: well developed and NAD; Negative for unkempt, cachectic, contractures, cyanotic, diaphoretic or pallor Nutritional Appearance: Negative for cachectic HEENT Reports moist mucous membranes Eyes PERRL and EOMs intact bilaterally Neck no lymphadenopathy, supple and no JVD Chest Wall inspection of chest normal and palpation of chest normal Resp normal respiratory effort and clear to auscultation bilaterally Cardio regular rate, regular rhythm, S1 normal heart sound, S2 normal heart sound and no murmurs GI normal to inspection, nondistended, normoactive bowel sounds, non-tender, non-distended and no masses Auscultation: normoactive bowel sounds Palpation: soft; Negative for tender, guarding or rebound tenderness present Back/Spine no CVA tenderness General Back: Negative for CVA tenderness Cervical Spine: Negative for cervical spine tenderness Thoracic Spine / Upper Back: Negative for thoracic spinal tenderness or paraspinal muscle tenderness Lumbar Spine / Lower Back: Negative for lumbar spinal tenderness Extremity normal to inspection General Extremety ED: Negative for edema or tenderness General Extremity: Negative for edema Neuro oriented x3 and CN's II-XII intact bilaterally Sensorium / Orientation: alert Motor Exam: strength 5/5 throughout Psych mental status grossly normal Appearance: Negative for unkempt Mood & Affect: anxious; Negative for depressed or tearful Skin no rashes or lesions noted, no wounds and skin turgor normal General Skin Exam: elasticity normal; Negative for jaundice or pallor Lesions: No lesion noted Rashes: No rashes noted MDM MDM MDM Narrative Medical decision making narrative: 34-year-old female seems like most of this is anxiety she has a benign exam. She is 30 weeks she has Ilan Amato contractions a Priyanka gave her atypical chest pain. She has no history of DVT or PE. No leg pain or swelling. No calf pain or edema. She will undergo chest pain workup I do not think this is a DVT or PE. She will be given Ativan for anxiety. She has already been seenby labor and delivery today. Repeat exam arounds 1:00 and again at 2:26 PM patient is doing well. The Ativandid improve her anxiety. Her workup including CTA of her chest are negative. Ithink this is primarily secondary to anxiety. I do not think is acute cardiac event. Does not appear to be a pulmonary emboli. History & Record Review Discussion w/independent historian: Patient Additional record(s) reviewed:: Prior inpatient record, Prior outpatient record,Prior ED visit and Prior labs Lab Data Attestation: I reviewed the patient's lab results. Lab results narrative: CBC shows a white count of 8. H&H 11.0 and 32. Platelets 160. D-dimer is elevated 0.6. Troponin is less than 6. Electrolytes show gap 12. BUN and creatinine 8 and 0.5. Glucose 84. Chest x-ray unremarkable. Labs: Laboratory Results - last 24 hr 04/05/25 12:12 WBC 8.3 RBC 3.67 L Hgb 11.0 L Hct 32.3 L MCV 88.0 MCH 30.0 MCHC 34.1 RDW Std Deviation 40.2 RDW Coeff of Allison 12.6 Plt Count 160 MPV 9.2 Immature Gran % (Auto) 2.500 H Neut % (Auto) 67.1 Lymph % (Auto) 22.7 [place] % (Auto) 6.3 Eos % (Auto) 0.8 Baso % (Auto) 0.6 Absolute Neuts (auto) 5.6 Absolute Lymphs (auto) 1.88 Nucleated RBC % 0 D-Dimer Quant (PE/DVT) 0.66 H* Sodium 135 Potassium 4.1 Chloride 103 Carbon Dioxide 20.6 L Anion Gap 12 BUN 8 Creatinine 0.50 L Estim Creat Clear Calc 190.00 Est GFR (MDRD) Non-Af 127 BUN/Creatinine Ratio 15.8 Glucose 84 Calcium 8.3 Troponin T High Sens < 6 Radiography Chest X-Ray - ED: 2 View, Read by ED Physician, Read by Radiologist, Normal, Heart, Lungs, Mediastinum, Bony Structures and No Acute Disease Diagnostic Testing: Clinical Impression(s) from Imaging Studies Chest X-Ray 04/05/25 12:30 IMPRESSION: No radiographic evidence of acute cardiopulmonary disease. Reading Location: [place] [address] Chest CTA 04/05/25 12:48 IMPRESSION: There is no evidence of pulmonary embolus within the pulmonary artery or outflowtrack. Unremarkable exam. Reading Location: [place] [address] Chest x-ray, 2 views, AP and lateral, interpreted by myself and radiologist shows normal cardiac silhouette. Normal mediastinum. Normal lung brooks. No pneumonia. No effusions. Rhythm Strip Rhythm Strip: Sinus Rhythm Rate: 96 Ectopy: None EKG Initial EKG: Attestation: I personally reviewed and interpreted this EKG as follows: Interpretation: Sinus Rhythm and No Acute Injury Pattern Comments: Normal sinus rhythm rate 96 no acute signs of CA or ischemia. Inverted T waves in leads I, II and aVL. Prior EKG tracings: available for review Prior: Changed Discharge Plan Triage Chief Complaint: Dizziness ED Provider: Alejandro Gonzalez Dx/Rx/DC Orders Clinical Impression: Chest pain, Anxiety, Third trimester Instructions: ED Anxiety Reaction Prescriptions: No Action fluoxetine 40 mg capsule 40 mg PO DAILY Qty: 30 12RF PNV-[place] 28-1-300 mg capsule PO hydroxyzine HCl 25 mg tablet 25 mg PO TID PRN (Reason: anxiety) Qty: 120 5RF Rx Instructions: 1-2 po q 6 hours PRN Primary Care Provider: Braulio Bosch Referrals: Braulio Bosch MD [Primary Care Provider, Family Practice] - As Needed Dulce Villar MD [Med Staff - Active Staff, Obstetrics-Gynecology (OBGYN)]- Keep Qi appointment Activity Restrictions/Additional Instructions: Follow-up with your OB as needed and scheduled. Continue your anxiety medications. Your labs and imaging today all look good. Print Language: Guamanian Disposition Disposition: Home, Self Care What to do if you have Problems For any increased pain, shortness of breath, bleeding, nausea or vomiting, chestpain, or any unexpected problems, contact your Primary Care Provider. Call [facility] ([phone]) or report to the closest Emergency Room. Call 911 if necessary. 04/05/25 0219 <Electronically signed by Alejandro Gonzalez MD> Cosigner Signature (if applicable): CC: Dr. Braulio Bosch MD ~ Signed [facility] Work Phone: 1(163) 372-901709-29-2025 Radiology Diagnostic study note [facility] Imaging Services [address] [place] [address] Chest PA and Lateral MR#: [id number] Acct: [id number] Name: SHIRA ARBOLEDA Rep #: [id number] : 1990 F 34 From: Michelle Purvis MD PCP: Dr. Braulio Bosch MD Status: REG ER Study:Chest PA and Lateral Date of Exam: 04/05/25 Exam# [id number] Ordering Dr: Cal Gonzalez MD PROCEDURE: CHEST PA AND LATERAL 04/05/2025 REASON FOR EXAM: CHEST PAIN TECHNIQUE: Procedure Code: RADCXR Modality: DX Procedure: CHEST PA AND LATERAL COMPARISON: 07/03/2022 FINDINGS: Cardiomediastinal silhouette pulmonary vasculature and bony thorax are within normal limits. No focal infiltrates or effusion. RAD/Chest PA and Lateral IMPRESSION: No radiographic evidence of acute cardiopulmonary disease. Reading Location: [place] [address] CC: Dr. Braulio Bosch MD; Dr. Alejandro Gonzalez MD ~ Director Occupational: Signed [facility]09-29-2025 Progress note [facility] Medical Records Department [address] [place] [address] OB Triage Progress Note 04/05/25 1046 MR#: [id number] Acct: [id number] Name: SHIRA ARBOLEDA Rep #:[id number] : 1990 34 From: Mary Madrigal CNM PCP: Dr. Braulio Bosch MD Status :DEP [facility] DOS: Location: [facility] Progress Notes Progress Note: Patient presents for triage evaluation secondary to shortness of breath and blurred vision. FHT: 135 Moderate variability reactive no decelerations category I tracing [place]: irregular mild Contractions Assessment and plan: pre e labs and normal BP, Reactive NST, reassuring maternaland status patient to ER for evaluation of shortness of breath. See problem list details for additional plan information. Charges/Coding Multi Select Codes Urinary/Genital Urinary/Genital CPT Codes: 47846-67 non-stress test Interp Assessment & Plan (1) Blurred vision: COMMENT: normal BP and pre e labs. PLAN: ER for evaluation of SOB (2) Anxiety and depression: COMMENT: see counselor; zoloft (3) GBS (group B streptococcus) UTI complicating : QUALIFIERS: Trimester: third trimester Qualified Code(s): O23.43 - Unspecified infection of urinarytract in , third trimester; B95.1 - Streptococcus, group B, as the cause of diseases classified elsewhere COMMENT: PCN in labor (4) : QUALIFIERS: Weeks of gestation: 28 weeks Qualified Code(s): Z3A.28 - 28 weeks gestation of COMMENT: LR NIPT. declined carrier, normal anatomy (5) Supervision of high-risk : QUALIFIERS: Trimester: third trimester Qualified Code(s): O09.93 - Supervision of high risk , unspecified, third trimester COMMENT: PRR , TIFFANY 06/14/25, girl Teresa [facility] Justin, Isamar Abarca, Partner Chintan (6) History of marijuana use: COMMENT: Gummies last used 05/31, discussed random tox screens during (7) Hx of depression, currently : (8) FH: cleft lip and palate: COMMENT: Brother 04/05/25 1411 s CNM> Date _ Mary Patterson Signature (if applicable): Date CC: SMITA Madrigal; Dr. Braulio Bosch MD ~ Signed [facility]07-25-2025 Progress [facility] [address], [address] [place] [address] OFFICE VISIT Date of Service: 01/29/25 MR#: [id number] Acct: [id number] Name: SHIRA ARBOLEDA Rep #: [id number] : 1990 Provider: SMITA Madrigal Age/Sex: 34/F [place] [facility] Status: Signed Intake Vital Signs 11/16/24 13:00 01/01/25 10:14 01/29/25 08:45 Height 5 ft 5 in 5 ft 5 in 5 ft 5 in Weight: 205 lb 4 oz BMI 34.1 BP 114/70 Intake Visit Reasons: 20 wk ob Chief Complaint: 20 Week OB Other Sports Coach Or Instructor Required: No Is patient in pain?: No Allergies Latex, Natural Rubber Allergy (Intermediate, Verified 01/29/25 08:45) Swelling amoxicillin Allergy (Verified 01/29/25 08:45) Hives naproxen (From Aleve) Allergy (Verified 01/29/25 08:45) Hives sulfamethoxazole (From Bactrim) Allergy (Verified 01/29/25 08:45) Hives trimethoprim (From Bactrim) Allergy (Verified 01/29/25 08:45) Hives Medications ?Medication ?Instructions ?Recorded ?Confirmed ?Type valacyclovir 1 gram tablet 1,000 mg PO BID PRN 4 01/29/25 History (Valtrex) fluoxetine 20 mg capsule 20 mg PO DAILY #30 caps 06/0801/29/25 Rx multivit-min no.71-iron fum 28 cap PO 10/22/24 5 History mg-folate no.1 1 mg-dha 300 mg capsule (PNV-[place]) hydroxyzine HCl 25 mg tablet 25 mg PO TID PRN anxiety #120 tabs 11/05/24 01/29/25 Rx prochlorperazine maleate 10 mg 10 mg PO Q8H PRN nausea and 11/06/24 01/29/25 Rx tablet (Compazine) vomiting #90 tabs fosfomycin tromethamine 3 gram 3 g PO ONCE #1 ea 12/0301/29/25 Rx oral packet promethazine 25 mg tablet 25 mg PO Q6H PRN nausea and 01/01/25 01/29/25 Rx vomiting #30 tabs Last Menstrual Period: 09/07/24 Zika: Zika virus screening: Negative : No PFSH PFSH Medical History Elective Dizziness Shortness of breath Hemorrhoid GERD (gastroesophageal reflux disease) Anxiety and depression Genital herpes Surgical History H/O wisdom tooth extraction S/P tonsillectomy H/O eye surgery Family History Grandfather Diabetes Heart disease Grandmother No problems noted. 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 current occupational exposures/hazards: No pets and animals: No history of recent travel: Yes ([place], [place], [place], [place] [facility]) out of state: Yes out of country: Yes sexually active: Yes Smoking Status: Never smoker alcohol intake: current alcohol intake frequency: holidays/special occasions only details: Not while substance use type: former substance user Date of last use: 6 months ago- gummies and marijuana well-balanced diet: daily or most days caffeine: No eating out: 1-3 times/week during the past year weight has: increased > 10 lbs what type of physical activity do you participate in: none naomi/zoroastrianism: None seatbelt use: always do you feel safe at home: Yes additional social history: FOB/BF - Chintan Ripple: [employer]ist History 5 Elective abortions 1 Hx Para 3 Spontaneous abortions Hx # Term Pregnancies 3 Ectopic pregnancies Hx # Pregnancies Multiple births # of living children 3 Past Pregnancies Del. Date Name GA/Weeks Outcome Route Bth Weight Infant Gen Labor Lgth Anesthesia Del Locatn Provider RYAN 03/21/18 Justin 40 live - full term 9lbs 7oz Male epi dural [facility] Kilpatrick 06/12/19 Thakur-Goes by Tevin 40 live - full term 8l bs 8oz Male epidural [facility] Dr. Olena Kilpatrick 01/13/21 Isamar 40 live - full term 7lbs 6oz Female ep idural [facility] Dr. Olena Kilpatrick 07/10/24 elective Delivery Date: 03/21/18 Last Updated by: Elvira Travis Prolonged labor, [place] Delivery Date: 06/12/19 Last Updated by: Elvira Travis hypotension during labor HPI 20 wk ob Details: SHIRA ARBOLEDA is a 34 year old who presents for routine OB visit. OB Visit TIFFANY Calculator Estimated Delivery Date Method Current WG Current Estimate 06/14/25 LMP (Certain) 20w 4d Other Estimates 06/13/25 Ultrasound #1 20w 5d Expected Delivery Route/Plan Labor Preferences- CB/BF classes: [] labor support person: [] labor intervention preferences: [] pain management options preferred: [] cut cord/dad catch: [] : [] PP control planned: [] discussed possible routes of delivery and associated risks: [] special requests: [] Specific Issue/Plans Covid status: [] Flu vaccine: [] Tdap vaccine: [] Rhogam: [] LARC form signed: [] Problem list reviewed and updated with the most current plan of care details and appropriate ordersplaced. Relevant counseling for the gestational age provided. Continue routine care and follow up unless otherwise noted in visit notes/problem list details Initial Weight: Not Recorded Date -?-?-?-?-?-?-?-?-?-?-?-?- EGA Weight BP Urine Prot -?-?-?-?-?-?-?-?-?-?-?-?- Glucose FHR FuHt Pres Dilation -?-?-?-?-?-?-?-?-?-?-?-?- Effaced St Visit Note 11/06/24 -?-?-?-?-?-?-?-?-?-?-?-?- 8w 4d 188 lb 118/80 -?-?-?-?-?-?-?-?-?-?-?-?- 170 -?-?-?-?-?-?-?-?-?-?-?-?- SM- CRL 1.96cm c ons with lMP 11/16/24 -?-?-?-?-?-?-?-?-?-?-?-?- 10w 0d 189 lb 6 oz 116/74 Nega tive -?-?-?-?-?-?-?-?-?-?-?-?- Negative 150 -?-?-?-?-?-?-?-?-?-?-?-?- SM- no vb crampi ng doing well 12/03/24 -?-?-?-?-?-?-?-?-?-?-?-?- 12w 3d 194 lb 119/79 Negative -?-?-?-?-?-?-?-?-?-?-?-?- Negative 160 -?-?-?-?-?-?-?-?-?-?-?-?- SM- having burni ng on urination after interoucrse only. some loss of taste and her tongue hurts, no significant whitening of tongue yet. 01/01/25 -?-?-?-?-?-?-?-?-?-?-?-?- 16w 4d 201 lb 6 oz 106/69 -?-?-?-?-?-?-?-?-?-?-?-?- 147 -?-?-?-?-?-?-?-?-?-?-?-?- JV- no lof, vagi nal bleeding, or cramping. Going to [facility] on a work trip soon. promethazine given for the flight. she knows not to continue JV- no lof, vaginal bleeding , or cramping. Going to [facility] on a work trip soon. promethazine given for the flight. she knows not to take the vistaril with it. 01/29/25 -?-?-?-?-?-?-?-?-?-?-?-?- 20w 4d 205 lb 4 oz 114/70 Nega tive -?-?-?-?-?-?-?-?-?-?-?-?- Negative 130 -?-?-?-?-?-?-?-?-?-?-?-?- KW- no vb/crampi ng. good fm recommended magnesium and iron for restless leg. follow up US in 2 weeks ACOG First Trimester First Trimester: Desire for , Alcohol, Tobacco Cessation, Illicit/Recreational Drug/Substance Use, Intimate Partner Violence, Barriers to care, Unstable Housing, Communication Barriers, Environmental/Work Hazards, Anticipated Course of Care, Toxoplasmosis Precations, Use of Any med ications, Sexual activity, Exercise, Dental Care, Sauna/Hot tub use, Seat Belt use, Childbirth classes/Hospital facilities, Travel, Indications for Ultrasound and Screening for Aneuploidy; Discussed ROS Const Reports system reviewed and no additional complaints, except as documented Eyes Reports system reviewed and no additional complaints, except as documented ENT Reports system reviewed and no additional complaints, except as documented Card Reports system reviewed and no additional complaints, except as documented Resp Reports system reviewed and no additional complaints, except as documented GI Reports system reviewed and no additional complaints, except as documented, Denies nausea and Denies vomiting Reports system reviewed and no additional complaints, except as documented Musc Reports system reviewed and no additional complaints, except as documented Skin/Breast Reports system reviewed and no additional complaints, except as documented Neuro Yes system reviewed and no additional complaints, except as documented Psych Reports system reviewed and no additional complaints, except as documented Endo Reports system reviewed and no additional complaints, except as documented Ezra/Lymph Reports system reviewed and no additional complaints, except as documented Aller/Immun Reports system reviewed and no additional complaints, except as documented Exam Const General: cooperative, healthy appearing and no acute distress Orientation: alert, awake and oriented x3 Neck Neck: normal visual inspection and full ROM Resp Effort & Inspection: normal respiratory effort, able to speak in complete sentences and symmetric chest movement GI Inspection: normal to inspection Palpation: soft and other Other: gravid Skin General: no rashes or lesions noted Neuro General: patient alert, patient awake and patient oriented x3 Cognition: normal cognition Speech: speech normal Gait: normal gait Motor: muscle tone normal throughout Extrem General: normal to inspection and full ROM Psych Appearance: grossly normal Mental Status: mental status grossly normal Mood: congruent mood Affect: normal affect Speech and Movement: speech and movement normal Attitude: cooperative Thought Process: normal Thought Content: normal Judgment: judgment good Results POC Urinalysis 2 Dip (Clinic) Office Urine Glucose Negative Last Edit by Alma Mcwilliams on 01/29/25 08 :51 Office Urine Protein Negative Last Edit by Alma Mcwilliams on 01/29/25 08 :51 Coding Level of Care Code OB Routine Diagnoses 20 weeks gestation of Z3A.20 Weeks of gestation: 20 weeks Supervision of high-risk O09.90 Dysuria R30.0 GBS (group B streptococcus) UTI complicating O23.40; B95.1 History of marijuana use F12.91 Hx of depression, currently O99.891; Z86.59 FH: cleft lip and palate Z82.79 Assessment and Plan Assessment and Plan (1) : Status: Acute Qualifiers: Weeks of gestation: 20 weeks Qualified Code(s): Z3A.20 - 20 weeks gestation of Comment: LR NIPT. declined carrier (2) Supervision of high-risk : Status: Acute Comment: PRR , TIFFANY 06/14/25, girl [facility] Tevin Anderson Ruby, Partner Chintan (3) Dysuria: Status: Acute Comment: ordered ua and culture (4) GBS (group B streptococcus) UTI complicating : Status: Acute Comment: PCN in labor (5) History of marijuana use: Status: Acute Comment: Gummies last used 05/31, discussed random tox screens during (6) Hx of depression, currently : Status: Acute (7) FH: cleft lip and palate: Status: Acute Comment: Brother Orders: Orders POC Urinalysis 2 Dip (Clinic) Today Plan Details Additional Comments: ACOG trimester education reviewed and updated. see problem list details for updated plan management information and see below for orders placed atthis visit. GA appropriate handout given. Goals & Barriers: Goals Decrease spasm Improve motion of sacrum 01/29/25 0902 s SMITA> Date _ Mary Madrigal CNM Cosigncristopher Signature: Date (if applicable) CC: ~ [facility]06-27-2025 Evaluation note* Diagnosis Onset Date Resolution Status Admit Date FH: cleft lip and palate acute January 01, 2025 10:11am GBS (group B streptococcus) UTI complicating acute January 01, 2025 10:11am History of marijuana use acute January 01, 2025 10:11am Hx of depression, currently acute January 01 10:11am acute January 01 10:11am Supervision of high-risk acute January 01, 2025 10:11am Dysuria resolved January 01 10:11am FH: cleft lip and palate acute January 29, 2025 8:40am GBS (group B streptococcus) UTI complicating acute January 29, 2025 8:40am History of marijuana use acute January 29, 2025 8:40am Hx of depression, currently acute January 29 8:40am acute January 29 8:40am Supervision of high-risk acute January 29, 2025 8:40am Dysuria resolved January 29 8:40am FH: cleft lip and palate acute February 26, 2025 3:35pm GBS (group B streptococcus) UTI complicating acute Augus t 2024 3:35pm History of marijuana use acute February 26, 2025 3:35pm Hx of depression, currently acute February 26, 2025 3:35pm acute February 26, 2 025 3:35pm Supervision of high-risk acute February 26 3:35pm Dysuria resolved February 26, 2 025 3:35pm Anxiety and depression acute Se ptember 2024 9:56am FH: cleft lip and palate acute March 23, 2025 9:56am GBS (group B streptococcus) UTI complicating acute 2024 9:56am History of marijuana use acute March 23, 2025 9:56am Hx of depression, currently acute March 9:56am acute March 9:56am Supervision of high-risk acute March 23, 2025 9:56am Anxiety and depression acute Se ptember 2024 9:32am Blurred vision acute April 05, 2025 9:32am FH: cleft lip and palate acute April 05, 2025 9:32am GBS (group B streptococcus) UTI complicating acute Septe 2024 9:32am History of marijuana use acute April 05, 2025 9:32am Hx of depression, currently acute March 9:32am acute March 9:32am Supervision of high-risk acute April 05, 2025 9:32am [facility] Work Phone: 1(784) 974-656606-27-2025 Evaluation note* Diagnosis Onset Date Resolution Status Admit Date FH: cleft lip and palate acute January 01, 2025 10:11am GBS (group B streptococcus) UTI complicating acute January 01, 2025 10:11am History of marijuana use acute January 01, 2025 10:11am Hx of depression, currently acute January 01 10:11am acute January 01 10:11am Supervision of high-risk acute January 01, 2025 10:11am Dysuria resolved January 01 10:11am FH: cleft lip and palate acute January 29, 2025 8:40am GBS (group B streptococcus) UTI complicating acute January 29, 2025 8:40am History of marijuana use acute January 29, 2025 8:40am Hx of depression, currently acute January 29 8:40am acute January 29 8:40am Supervision of high-risk acute January 29, 2025 8:40am Dysuria resolved January 29 8:40am FH: cleft lip and palate acute February 26, 2025 3:35pm GBS (group B streptococcus) UTI complicating acute Augus t 2024 3:35pm History of marijuana use acute February 26, 2025 3:35pm Hx of depression, currently acute February 26, 2025 3:35pm acute February 26, 2 025 3:35pm Supervision of high-risk acute February 26 3:35pm Dysuria resolved February 26, 2 025 3:35pm Anxiety and depression acute Se ptember 2024 9:56am FH: cleft lip and palate acute March 23, 2025 9:56am GBS (group B streptococcus) UTI complicating acute Sept2024 9:56am History of marijuana use acute March 23, 2025 9:56am Hx of depression, currently acute March 9:56am acute March 9:56am Supervision of high-risk acute March 23, 2025 9:56am Anxiety and depression acute Se ptember 2024 9:32am FH: cleft lip and palate acute April 05, 2025 9:32am GBS (group B streptococcus) UTI complicating acute Septe mber 2024 9:32am History of marijuana use acute April 05, 2025 9:32am Hx of depression, currently acute March 9:32am acute March 9:32am Supervision of high-risk acute April 05, 2025 9:32am Blurred vision resolved April 05, 2025 9:32am Anxiety and depression acute Oc tob2024 12:46pm FH: cleft lip and palate acute April 08, 2025 12:46pm GBS (group B streptococcus) UTI complicating acute Octob er 2024 12:46pm History of marijuana use acute April 08, 2025 12:46pm Hx of depression, currently acute April 08, 2025 12:46pm acute April 08, 12:46pm Supervision of high-risk acute April 08 12:46pm [facility] Work Phone: 1(604) 632-774705-29-2025 Evaluation note* Diagnosis Onset Date Resolution Status Admit Date FH: cleft lip and palate acute December 03, 2024 8:27am History of marijuana use acute December 03, 2024 8:27am Hx of depression, currently acute December 03 8:27am acute December 03, 2024 8:27am Supervision of high-risk acute December 03, 2024 8 :27am Dysuria resolved December 03, 2024 8:27am FH: cleft lip and palate acute January 01, 2025 10:11am GBS (group B streptococcus) UTI complicating acute January 01, 2025 10:11am History of marijuana use acute January 01, 2025 10:11am Hx of depression, currently acute January 01 10:11am acute January 01 10:11am Supervision of high-risk acute January 01, 2025 10:11am Dysuria resolved January 01 10:11am FH: cleft lip and palate acute January 29, 2025 8:40am GBS (group B streptococcus) UTI complicating acute January 29, 2025 8:40am History of marijuana use acute January 29, 2025 8:40am Hx of depression, currently acute January 29 8:40am acute January 29 8:40am Supervision of high-risk acute January 29, 2025 8:40am Dysuria resolved January 29 8:40am FH: cleft lip and palate acute February 26, 2025 3:35pm GBS (group B streptococcus) UTI complicating acute Augus 2024 3:35pm History of marijuana use acute February 26, 2025 3:35pm Hx of depression, currently acute February 26, 2025 3:35pm acute February 26, 2 025 3:35pm Supervision of high-risk acute February 26 3:35pm Dysuria resolved February 26, 2 025 3:35pm FH: cleft lip and palate acute March 23, 2025 9:56am GBS (group B streptococcus) UTI complicating acute 2024 9:56am History of marijuana use acute March 23, 2025 9:56am Hx of depression, currently acute March 9:56am acute March 9:56am Supervision of high-risk acute March 23, 2025 9:56am [facility] Work Phone: 1(831) 243-937705-02-2025 Evaluation note* Diagnosis Onset Date Resolution Status Admit Date FH: cleft lip and palate acute November 06, 2024 4:13pm History of marijuana use acute November 06, 2024 4:13pm Hx of depression, currently acute November 06, 2024 4:13pm acute November 06, 2024 4:13pm Supervision of high-risk acute November 06, 2024 4: 13pm FH: cleft lip and palate acute May 12th, 2025 12:56pm History of marijuana use acute November 16, 2024 12:56pm Hx of depression, currently acute November 16 12:56pm acute November 16, 2024 12:56pm Supervision of high-risk acute November 16, 2024 1 2:56pm Dysuria acute December 03, 2024 8:27am FH: cleft lip and palate acute December 03, 2024 8:27am History of marijuana use acute December 03, 2024 8:27am Hx of depression, currently acute December 03 8:27am acute December 03, 2024 8:27am Supervision of high-risk acute December 03, 2024 8 :27am Dysuria acute January 01 10:11am FH: cleft lip and palate acute January 01, 2025 10:11am GBS (group B streptococcus) UTI complicating acute December 10:11am History of marijuana use acute January 01, 2025 10:11am Hx of depression, currently acute January 01 10:11am acute January 01 10:11am Supervision of high-risk acute January 01, 2025 10:11am [facility] Work Phone: 1(991) 499-571905-02-2025 Evaluation note* Diagnosis Onset Date Resolution Status Admit Date FH: cleft lip and palate acute November 06, 2024 4:13pm History of marijuana use acute November 06, 2024 4:13pm Hx of depression, currently acute November 06, 2024 4:13pm acute November 06, 2024 4:13pm Supervision of high-risk acute November 06, 2024 4: 13pm FH: cleft lip and palate acute November 16, 2024 12:56pm History of marijuana use acute November 16, 2024 12:56pm Hx of depression, currently acute November 16 12:56pm acute November 16, 2024 12:56pm Supervision of high-risk acute November 16, 2024 1 2:56pm Dysuria acute December 03, 2024 8:27am FH: cleft lip and palate acute December 03, 2024 8:27am History of marijuana use acute December 03, 2024 8:27am Hx of depression, currently acute December 03 8:27am acute December 03, 2024 8:27am Supervision of high-risk acute December 03, 2024 8 :27am Dysuria acute January 01 10:11am FH: cleft lip and palate acute January 01, 2025 10:11am GBS (group B streptococcus) UTI complicating acute December 10:11am History of marijuana use acute January 01, 2025 10:11am Hx of depression, currently acute January 01 10:11am acute January 01 10:11am Supervision of high-risk acute January 01, 2025 10:11am Dysuria acute January 29 8:40am FH: cleft lip and palate acute January 29, 2025 8:40am GBS (group B streptococcus) UTI complicating acute January 8:40am History of marijuana use acute January 29, 2025 8:40am Hx of depression, currently acute January 29 8:40am acute January 29 8:40am Supervision of high-risk acute January 29, 2025 8:40am [facility] Work Phone: 1(572) 696-642905-02-2025 Evaluation note* Diagnosis Onset Date Resolution Status Admit Date FH: cleft lip and palate acute November 06, 2024 4:13pm History of marijuana use acute November 06, 2024 4:13pm Hx of depression, currently acute November 06, 2024 4:13pm acute November 06, 2024 4:13pm Supervision of high-risk acute November 06, 2024 4: 13pm FH: cleft lip and palate acute November 16, 2024 12:56pm History of marijuana use acute November 16, 2024 12:56pm Hx of depression, currently acute November 16 12:56pm acute November 16, 2024 12:56pm Supervision of high-risk acute November 16, 2024 1 2:56pm Dysuria acute December 03, 2024 8:27am FH: cleft lip and palate acute December 03, 2024 8:27am History of marijuana use acute December 03, 2024 8:27am Hx of depression, currently acute December 03 8:27am acute December 03, 2024 8:27am Supervision of high-risk acute December 03, 2024 8 :27am Dysuria acute January 01 10:11am FH: cleft lip and palate acute January 01, 2025 10:11am GBS (group B streptococcus) UTI complicating acute December 10:11am History of marijuana use acute January 01, 2025 10:11am Hx of depression, currently acute January 01 10:11am acute January 01 10:11am Supervision of high-risk acute January 01, 2025 10:11am Dysuria acute January 29 8:40am FH: cleft lip and palate acute January 29, 2025 8:40am GBS (group B streptococcus) UTI complicating acute January 8:40am History of marijuana use acute January 29, 2025 8:40am Hx of depression, currently acute January 29 8:40am acute January 29 8:40am Supervision of high-risk acute January 29, 2025 8:40am Dysuria acute February 26, 2 025 3:35pm FH: cleft lip and palate acute February 26, 2025 3:35pm GBS (group B streptococcus) UTI complicating acute February 262024 3:35pm History of marijuana use acute February 26, 2025 3:35pm Hx of depression, currently acute February 26, 2025 3:35pm acute February 26, 2 025 3:35pm Supervision of high-risk acute February 26 3:35pm [facility] Work Phone: 1(253) 245-601302-25-2025 Evaluation note* Diagnosis Onset Date Resolution Status Admit Date Induced noneactive September 01, 2024 1:36pm FH: cleft lip and palate acute November 06, 2024 4:13pm History of marijuana use acute November 06, 2024 4:13pm Hx of depression, currently acute November 06, 2024 4:13pm acute November 06, 2024 4:13pm Supervision of high-risk acute November 06, 2024 4: 13pm [facility] Work Phone: 1(418) 586-972202-25-2025 Evaluation note* Diagnosis Onset Date Resolution Status Admit Date Induced noneactive September 01, 2024 1:36pm FH: cleft lip and palate acute November 06, 2024 4:13pm History of marijuana use acute November 06, 2024 4:13pm Hx of depression, currently acute November 06, 2024 4:13pm acute November 06, 2024 4:13pm Supervision of high-risk acute November 06, 2024 4: 13pm FH: cleft lip and palate acute November 16, 2024 12:56pm History of marijuana use acute November 16, 2024 12:56pm Hx of depression, currently acute November 16 12:56pm acute November 16, 2024 12:56pm Supervision of high-risk acute November 16, 2024 1 2:56pm [facility] Work Phone: 1(572) 818-501602-25-2025 Evaluation note* Diagnosis Onset Date Resolution Status Admit Date Induced noneactive September 01, 2024 1:36pm FH: cleft lip and palate acute November 06, 2024 4:13pm History of marijuana use acute November 06, 2024 4:13pm Hx of depression, currently acute November 06, 2024 4:13pm acute November 06, 2024 4:13pm Supervision of high-risk acute November 06, 2024 4: 13pm FH: cleft lip and palate acute November 16, 2024 12:56pm History of marijuana use acute November 16, 2024 12:56pm Hx of depression, currently acute November 16 12:56pm acute November 16, 2024 12:56pm Supervision of high-risk acute November 16, 2024 1 2:56pm FH: cleft lip and palate acute December 03, 2024 8:27am History of marijuana use acute December 03, 2024 8:27am Hx of depression, currently acute December 03 8:27am acute December 03, 2024 8:27am Supervision of high-risk acute December 03, 2024 8 :27am [facility] Work Phone: 1(124) 533-532002-25-2025 Evaluation note* Diagnosis Onset Date Resolution Status Admit Date Induced noneactive September 01, 2024 1:36pm FH: cleft lip and palate acute November 06, 2024 4:13pm History of marijuana use acute November 06, 2024 4:13pm Hx of depression, currently acute November 06, 2024 4:13pm acute November 06, 2024 4:13pm Supervision of high-risk acute November 06, 2024 4: 13pm FH: cleft lip and palate acute November 16, 2024 12:56pm History of marijuana use acute November 16, 2024 12:56pm Hx of depression, currently acute November 16 12:56pm acute November 16, 2024 12:56pm Supervision of high-risk acute November 16, 2024 1 2:56pm Dysuria acute December 03, 2024 8:27am FH: cleft lip and palate acute December 03, 2024 8:27am History of marijuana use acute December 03, 2024 8:27am Hx of depression, currently acute December 03 8:27am acute December 03, 2024 8:27am Supervision of high-risk acute December 03, 2024 8 :27am [facility] Work Phone: Evaluation note* Diagnosis Onset Date Resolution Status Family history of ovarian cancer acute Encounter for routine gynecological examination noneactive [facility] Work Phone: Evaluation note* Diagnosis Onset Date Resolution Status Family history of ovarian cancer acute Encounter for routine gynecological examination noneactive Thyromegaly acute [facility] Work Phone: Evaluation noteNo assessment information available [facility] Work Phone: Hospital Discharge instructions Additional Instructions Plenty of fluids and rest. Mmls-pto-lbuyxhy cough syrup. Follow-up with your doctor if not improving. Your exam and chest x-ray are normal.[facility] Work Phone: Hospital Discharge instructionsAdditional Instructions Pt transported via wheelchair to ED [facility] [place] Work Phone: Hospital Discharge instructionsAdditional Instructions Follow-up with your OB as needed and scheduled. Continue your anxiety medications. Your labs and imaging today all look good.[facility] Work Phone: Progress note Author Mary Madrigal [facility] Note Date/Time January 29, 2025 9:02 am [facility] [address], [address] [place] [address] OFFICE VISIT Date of Service: 01/29/25 MR#: [id number] Acct: [id number] Name: SHIRA ARBOLEDA Rep #: [id number] : 1990 Provider: SMITA Madrigal Age/Sex: 34/F [place] [facility] Status: Signed Intake Vital Signs 11/16/24 13:00 01/01/25 10:14 01/29/25 08:45 Height 5 ft 5 in 5 ft 5 in 5 ft 5 in Weight: 205 lb 4 oz BMI 34.1 BP 114/70 Intake Visit Reasons: 20 wk ob Chief Complaint: 20 Week OB Other Sports Coach Or Instructor Required: No Is patient in pain?: No Allergies Latex, Natural Rubber Allergy (Intermediate, Verified 01/29/25 08:45) Swelling amoxicillin Allergy (Verified 01/29/25 08:45) Hives naproxen (From Aleve) Allergy (Verified 01/29/25 08:45) Hives sulfamethoxazole (From Bactrim) Allergy (Verified 01/29/25 08:45) Hives trimethoprim (From Bactrim) Allergy (Verified 01/29/25 08:45) Hives Medications ?Medication ?Instructions ?Recorded ?Confirmed ?Type valacyclovir 1 gram tablet 1,000 mg PO BID PRN 4 01/29/25 History (Valtrex) fluoxetine 20 mg capsule 20 mg PO DAILY #30 caps 06/0801/29/25 Rx multivit-min no.71-iron fum 28 cap PO 10/22/24 5 History mg-folate no.1 1 mg-dha 300 mg capsule (PNV-[place]) hydroxyzine HCl 25 mg tablet 25 mg PO TID PRN anxiety #120 tabs 11/05/24 01/29/25 Rx prochlorperazine maleate 10 mg 10 mg PO Q8H PRN nausea and 11/06/24 01/29/25 Rx tablet (Compazine) vomiting #90 tabs fosfomycin tromethamine 3 gram 3 g PO ONCE #1 ea 12/0301/29/25 Rx oral packet promethazine 25 mg tablet 25 mg PO Q6H PRN nausea and 01/01/25 01/29/25 Rx vomiting #30 tabs Last Menstrual Period: 09/07/24 Zika: Zika virus screening: Negative : No PFSH PFSH Medical History Elective Dizziness Shortness of breath Hemorrhoid GERD (gastroesophageal reflux disease) Anxiety and depression Genital herpes Surgical History H/O wisdom tooth extraction S/P tonsillectomy H/O eye surgery Family History Grandfather Diabetes Heart disease Grandmother No problems noted. 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 [email or web address] current occupational exposures/hazards: No pets and animals: No history of recent travel: Yes ([place], [place], [place], [place]) out of state: Yes out of country: Yes sexually active: Yes Smoking Status: Never smoker alcohol intake: current alcohol intake frequency: holidays/special occasions only details: Not while substance use type: former substance user Date of last use: 6 months ago- gummies and marijuana well-balanced diet: daily or most days caffeine: No eating out: 1-3 times/week during the past year weight has: increased > 10 lbs what type of physical activity do you participate in: none naomi/zoroastrianism: None seatbelt use: always do you feel safe at home: Yes additional social history: FOB/BF - Chintan Ripple: [employer] Specialist History 5 Elective abortions 1 Hx Para 3 Spontaneous abortions Hx # Term Pregnancies 3 Ectopic pregnancies Hx # Pregnancies Multiple births # of living children 3 Past Pregnancies Del. Date Name GA/Weeks Outcome Route Bth Weight Infant Gen Labor Lgth Anesthesia Del Locatn Provider FOB 03/21/18 Justin 40 live - full term 9lbs 7oz Male epi dural [facility] Finesse 06/12/19 Thakur-Goes by Tevin 40 live - full term 8l bs 8oz Male epidural [facility] Dr. Olena Kilpatrick 01/13/21 Isamar 40 live - full term 7lbs 6oz Female ep idural [facility] Dr. Olena Kilpatrick 07/10/24 elective Delivery Date: 03/21/18 Last Updated by: Elvira Travis Prolonged labor, Oligo Delivery Date: 06/12/19 Last Updated by: Elvira Travis hypotension during labor HPI 20 wk ob Details: SHIRA ARBOLEDA is a 34 year old who presents for routine OB visit. OB Visit TIFFANY Calculator Estimated Delivery Date Method Current WG Current Estimate 06/14/25 LMP (Certain) 20w 4d Other Estimates 06/13/25 Ultrasound #1 20w 5d Expected Delivery Route/Plan Labor Preferences- CB/BF classes: [] labor support person: [] labor intervention preferences: [] pain management options preferred: [] cut cord/dad catch: [] : [] PP control planned: [] discussed possible routes of delivery and associated risks: [] special requests: [] Specific Issue/Plans Covid status: [] Flu vaccine: [] Tdap vaccine: [] Rhogam: [] LARC form signed: [] Problem list reviewed and updated with the most current plan of care details and appropriate orders placed. Relevant counseling for the gestational age provided. Continue routine care and follow up unless otherwise noted in visit notes/problem list details Initial Weight: Not Recorded Date -?-?-?-?-?-?-?-?-?-?-?-?- EGA Weight BP Urine Prot -?-?-?-?-?-?-?-?-?-?-?-?- Glucose FHR FuHt Pres Dilation -?-?-?-?-?-?-?-?-?-?-?-?- Effaced St Visit Note 11/06/24 -?-?-?-?-?-?-?-?-?-?-?-?- 8w 4d 188 lb 118/80 -?-?-?-?-?-?-?-?-?-?-?-?- 170 -?-?-?-?-?-?-?-?-?-?-?-?- SM- CRL 1.96cm c ons with lMP 11/16/24 -?-?-?-?-?-?-?-?-?-?-?-?- 10w 0d 189 lb 6 oz 116/74 Nega tive -?-?-?-?-?-?-?-?-?-?-?-?- Negative 150 -?-?-?-?-?-?-?-?-?-?-?-?- SM- no vb crajon ng doing well 12/03/24 -?-?-?-?-?-?-?-?-?-?-?-?- 12w 3d 194 lb 119/79 Negative -?-?-?-?-?-?-?-?-?-?-?-?- Negative 160 -?-?-?-?-?-?-?-?-?-?-?-?- SM- having burni ng on urination after interoucrse only. some loss of taste and her tongue hurts, no significant whitening of tongue yet. 01/01/25 -?-?-?-?-?-?-?-?-?-?-?-?- 16w 4d 201 lb 6 oz 106/69 -?-?-?-?-?-?-?-?-?-?-?-?- 147 -?-?-?-?-?-?-?-?-?-?-?-?- JV- no lof, vagi nal bleeding, or cramping. Going to [employer] on a work trip soon. promethazine given for the flight. she knows not to continue JV- no lof, vaginal bleeding , or cramping. Going to [employer] on a work trip soon. promethazine given for the flight. she knows not to take the vistaril with it. 01/29/25 -?-?-?-?-?-?-?-?-?-?-?-?- 20w 4d 205 lb 4 oz 114/70 Nega tive -?-?-?-?-?-?-?-?-?-?-?-?- Negative 130 -?-?-?-?-?-?-?-?-?-?-?-?- KW- no vb/crampi ng. good fm recommended magnesium and iron for restless leg. follow up US in 2 weeks ACOG First Trimester First Trimester: Desire for , Alcohol, Tobacco Cessation, Illicit/Recreational Drug/Substance Use, Intimate Partner Violence, Barriers to care, Unstable Housing, Communication Barriers, Environmental/Work Hazards, Anticipated Course of Care, Toxoplasmosis Precations, Use of Any medications, Sexual activity, Exercise, Dental Care, Sauna/Hot tub use, Seat Belt use, Childbirth classes/Hospital facilities, Travel, Indications for Ultrasound and Screening for Aneuploidy; Discussed ROS Const Reports system reviewed and no additional complaints, except as documented Eyes Reports system reviewed and no additional complaints, except as documented ENT Reports system reviewed and no additional complaints, except as documented Card Reports system reviewed and no additional complaints, except as documented Resp Reports system reviewed and no additional complaints, except as documented GI Reports system reviewed and no additional complaints, except as documented, Denies nausea and Denies vomiting Reports system reviewed and no additional complaints, except as documented Musc Reports system reviewed and no additional complaints, except as documented Skin/Breast Reports system reviewed and no additional complaints, except as documented Neuro Yes system reviewed and no additional complaints, except as documented Psych Reports system reviewed and no additional complaints, except as documented Endo Reports system reviewed and no additional complaints, except as documented Ezra/Lymph Reports system reviewed and no additional complaints, except as documented Aller/Immun Reports system reviewed and no additional complaints, except as documented Exam Const General: cooperative, healthy appearing and no acute distress Orientation: alert, awake and oriented x3 Neck Neck: normal visual inspection and full ROM Resp Effort & Inspection: normal respiratory effort, able to speak in complete sentences and symmetric chest movement GI Inspection: normal to inspection Palpation: soft and other Other: gravid Skin General: no rashes or lesions noted Neuro General: patient alert, patient awake and patient oriented x3 Cognition: normal cognition Speech: speech normal Gait: normal gait Motor: muscle tone normal throughout Extrem General: normal to inspection and full ROM Psych Appearance: grossly normal Mental Status: mental status grossly normal Mood: congruent mood Affect: normal affect Speech and Movement: speech and movement normal Attitude: cooperative Thought Process: normal Thought Content: normal Judgment: judgment good Results POC Urinalysis 2 Dip (Clinic) Office Urine Glucose Negative Last Edit by Alma Mcwilliams on 01/29/25 08 :51 Office Urine Protein Negative Last Edit by Alma Mcwilliams on 01/29/25 08 :51 Coding Level of Care Code OB Routine Diagnoses 20 weeks gestation of Z3A.20 Weeks of gestation: 20 weeks Supervision of high-risk O09.90 Dysuria R30.0 GBS (group B streptococcus) UTI complicating O23.40; B95.1 History of marijuana use F12.91 Hx of depression, currently O99.891; Z86.59 FH: cleft lip and palate Z82.79 Assessment and Plan Assessment and Plan (1) : Status: Acute Qualifiers: Weeks of gestation: 20 weeks Qualified Code(s): Z3A.20 - 20 weeks gestation of Comment: LR NIPT. declined carrier (2) Supervision of high-risk : Status: Acute Comment: PRR , TIFFANY 06/14/25, girl Teresa Tevin Boyce Ruby, Partner Chintan (3) Dysuria: Status: Acute Comment: ordered ua and culture (4) GBS (group B streptococcus) UTI complicating : Status: Acute Comment: PCN in labor (5) History of marijuana use: Status: Acute Comment: Gummies last used 05/31, discussed random tox screens during (6) Hx of depression, currently : Status: Acute (7) FH: cleft lip and palate: Status: Acute Comment: Brother Orders: Orders POC Urinalysis 2 Dip (Clinic) Today Plan Details Additional Comments: ACOG trimester education reviewed and updated. see problem list details for updated plan management information and see below for orders placed at this visit. GA appropriate handout given. Goals & Barriers: Goals Decrease spasm Improve motion of sacrum 01/29/25 0902 <Electronically signed by Mary rowland CNM> Date _ Mary Madrigal CNM Cosigner Signature: Date (if applicable) CC: ~ [facility] Work Phone: Progress note Author Mary Madrigal [facility] Note Date/Time April 05, 2025 11:15am [facility] Medical Records Department [address] [place] [address] OB Triage Progress Note 04/05/25 1046 MR#: [id number] Acct: [id number] Name: SHIRA ARBOLEDA Rep #:[id number] : 1990 34 From: Mary Madrigal CNM PCP: Dr. Braulio Bosch MD Status :DEP CLI Y DOS: Location: WPOUT Progress Notes Progress Note: Patient presents for triage evaluation secondary to shortness of breath and blurred vision. FHT: 135 Moderate variability reactive no decelerations category I tracing [place]: irregular mild Contractions Assessment and plan: pre e labs and normal BP, Reactive NST, reassuring maternaland status patient to ER for evaluation of shortness of breath. See problem list details for additional plan information. Charges/Coding Multi Select Codes Urinary/Genital Urinary/Genital CPT Codes: 46699-24 non-stress test Interp Assessment & Plan (1) Blurred vision: COMMENT: normal BP and pre e labs. PLAN: ER for evaluation of SOB (2) Anxiety and depression: COMMENT: see counselor; zoloft (3) GBS (group B streptococcus) UTI complicating : QUALIFIERS: Trimester: third trimester Qualified Code(s): O23.43 - Unspecified infection of urinary tract in , third trimester; B95.1 - Streptococcus, group B, as the cause of diseases classified elsewhere COMMENT: PCN in labor (4) : QUALIFIERS: Weeks of gestation: 28 weeks Qualified Code(s): Z3A.28 - 28 weeks gestation of COMMENT: LR NIPT. declined carrier, normal anatomy (5) Supervision of high-risk : QUALIFIERS: Trimester: third trimester Qualified Code(s): O09.93 - Supervision of high risk , unspecified, third trimester COMMENT: PRR , TIFFANY 06/14/25, girl Teresa Tevin Boyce Ruby, Partner Chintan (6) History of marijuana use: COMMENT: Gummies last used 05/31, discussed random tox screens during (7) Hx of depression, currently : (8) FH: cleft lip and palate: COMMENT: Brother 04/05/25 1411 <Electronically signed by Mary rowland CNM> Date _ Mary Madrigal CNM Cosigner Signature (if applicable): Date CC: SMITA Madrigal; Dr. Braulio Bosch MD ~ Signed [facility] Work Phone: Progress note Author Dulce Villar [facility] Note Date/Time April 08, 2025 1: 34pm [facility] [address], [address] [place] [address] OFFICE VISIT Date of Service: 04/08/25 MR#: [id number] Acct: [id number] Name: SHIRA ARBOLEDA Rep #: [id number] : 1990 Provider: Dr. Feng Villar MD Age/Sex: 34/F [place] [facility] [place] Status: Signed with Addenda ADDENDUM by Bertha Harvey on 04/08/25 at 1351 Office Procedure Documentation entered by Bertha Harvey 04/08/25 13:51: Immunizations Boostrix Tdap 2.5 Lf unit-8 mcg-5 Lf/0.5 mL intramuscular syringe Performing Provider: Dulce Villar MD Performing Location: [facility] Administered by: Bertha Harvey on 04/08/25 13:50 Dose Route Admin Location Dispensed Lot Number Expiration Date Pack age NDC NDC Wood Heel Attacher 0.5 mL IM Right Deltoid 0.5 mL [id number] 03/07/27 [id number] SANOFI- PASTEUR VIS Given Date VIS Provided VIS Publication Date 04/08/25 Single Vaccine 24 Eligibility Eligibility Date Funding Source Not Applicable Date _ cc: ~* Signed Intake Vital Signs 01/29/25 08:45 03/23/25 10:00 04/05/25 11:27 04/08/25 13:03 Height 5 ft 5 in 5 ft 5 in 5 ft 5 in 5 ft 5 in Weight: 226 lb 9 oz BMI 37.7 BP 121/77 H Intake Visit Reasons: 30 WK OB Other Sports Coach Or Instructor Required: No Is patient in pain?: No Allergies Latex, Natural Rubber Allergy (Intermediate, Verified 04/08/25 13:02) Swelling amoxicillin Allergy (Verified 04/08/25 13:02) Hives naproxen (From Aleve) Allergy (Verified 04/08/25 13:02) Hives sulfamethoxazole (From Bactrim) Allergy (Verified 04/08/25 13:02) Hives trimethoprim (From Bactrim) Allergy (Verified 04/08/25 13:02) Hives Medications ?Medication ?Instructions ?Recorded ?Confirmed ?Type multivit-min no.71-iron fum 28 cap PO 10/22/24 5 History mg-folate no.1 1 mg-dha 300 mg capsule (PNV-[place]) hydroxyzine HCl 25 mg tablet 25 mg PO TID PRN anxiety #120 tabs 02/18/25 04/08/25 Rx fluoxetine 40 mg capsule 40 mg PO DAILY #30 caps 02/0604/08/25 Rx Last Menstrual Period: 09/07/24 Zika: Zika virus screening: Negative : No PFSH PFSH Medical History Anxiety and depression Elective Dizziness Shortness of breath Hemorrhoid GERD (gastroesophageal reflux disease) Genital herpes Surgical History H/O wisdom tooth extraction S/P tonsillectomy H/O eye surgery Family History Grandfather Diabetes Heart disease Grandmother No problems noted. 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 current occupational exposures/hazards: No pets and animals: No history of recent travel: Yes ([place], [place], [place], [facility]) out of state: Yes out of country: Yes sexually active: Yes Smoking Status: Never smoker alcohol intake: current alcohol intake frequency: holidays/special occasions only details: Not while substance use type: former substance user Date of last use: 6 months ago- gummies and marijuana well-balanced diet: daily or most days caffeine: No eating out: 1-3 times/week during the past year weight has: increased > 10 lbs what type of physical activity do you participate in: none naomi/zoroastrianism: None seatbelt use: always do you feel safe at home: Yes additional social history: FOB/ - Chintan Ripple: [employer] Specialist History 5 Elective abortions 1 Hx Para 3 Spontaneous abortions Hx # Term Pregnancies 3 Ectopic pregnancies Hx # Pregnancies Multiple births # of living children 3 Past Pregnancies Del. Date Name GA/Weeks Outcome Route Bth Weight Infant Gen Labor Lgth Anesthesia Del Locatn Provider FOB 03/21/18 Justin 40 live - full term 9lbs 7oz Male epi dural [facility] Kilpatrick 06/12/19 Thakur-Goes by Tevin 40 live - full term 8l bs 8oz Male epidural [facility] Dr. Olena Kilpatrick 01/13/21 Isamar 40 live - full term 7lbs 6oz Female ep idural [facility] Dr. Olena Kilpatrick 07/10/24 elective Delivery Date: 03/21/18 Last Updated by: Elvira Travis Prolonged labor, Oligo Delivery Date: 06/12/19 Last Updated by: Elvira Travis hypotension during labor HPI 30 WK OB Details: SHIRA ARBOLEDA is a 34 year old who presents for routine OB visit. OB Visit TIFFANY Calculator Estimated Delivery Date Method Current WG Current Estimate 06/14/25 LMP (Certain) 30w 3d Other Estimates 06/13/25 Ultrasound #1 30w 4d Expected Delivery Route/Plan with SM if available Labor Preferences- CB/BF classes: no labor support person: Chintan labor intervention preferences: [] pain management options preferred: epidural cut cord/dad catch: yes : yes PP control planned: discussed discussed possible routes of delivery and associated risks: [] special requests: [] Specific Issue/Plans Covid status: [] Flu vaccine: [] Tdap vaccine: declines Rhogam: NA LARC form signed: yes Problem list reviewed and updated with the most current plan of care details and appropriate orders placed. Relevant counseling for the gestational age provided. Continue routine care and follow up unless otherwise noted in visit notes/problem list details Initial Weight: Not Recorded Date -?-?-?-?-?-?-?-?-?-?-?-?- EGA Weight BP Urine Prot -?-?-?-?-?-?-?-?-?-?-?-?- Glucose FHR FuHt Pres Dilation -?-?-?-?-?-?-?-?-?-?-?-?- Effaced St Visit Note 11/06/24 -?-?-?-?-?-?-?-?-?-?-?-?- 8w 4d 188 lb 118/80 -?-?-?-?-?-?-?-?-?-?-?-?- 170 -?-?--?-?-?-?-?-?-?-?-?-?- SM- CRL 1.96cm c ons with lMP 11/16/24 -?-?-?-?-?-?-?-?-?-?-?-?- 10w 0d 189 lb 6 oz 116/74 Nega tive -?-?-?-?-?-?-?-?-?-?-?-?- Negative 150 -?-?-?-?-?-?-?-?-?-?-?-?- SM- no vb crampi ng doing well 12/03/24 -?-?-?-?-?-?-?-?-?-?-?-?- 12w 3d 194 lb 119/79 Negative -?-?-?-?-?-?-?-?-?-?-?-?- Negative 160 -?-?-?-?-?-?-?-?-?-?-?-?- SM- having burni ng on urination after interoucrse only. some loss of taste and her tongue hurts, no significant whitening of tongue yet. 01/01/25 -?-?-?-?-?-?-?-?-?-?-?-?- 16w 4d 201 lb 6 oz 106/69 -?-?-?-?-?-?-?-?-?-?-?-?- 147 -?-?-?-?-?-?-?-?-?-?-?-?- JV- no lof, vagi nal bleeding, or cramping. Going to [facility] on a work trip soon. promethazine given for the flight. she knows not to continue JV- no lof, vaginal bleeding , or cramping. Going to [facility] on a work trip soon. promethazine given for the flight. she knows not to take the vistaril with it. 01/29/25 -?-?-?-?-?-?-?-?-?-?-?-?- 20w 4d 205 lb 4 oz 114/70 Nega tive -?-?-?-?-?-?-?-?-?-?-?-?- Negative 130 -?-?-?-?-?-?-?-?-?-?-?-?- KW- no vb/crampi ng. good fm recommended magnesium and iron for restless leg. follow up US in 2 weeks 02/26/25 -?-?-?-?-?-?-?-?-?-?-?-?- 24w 4d 216 lb 4 oz 117/76 Nega tive -?-?-?-?-?-?-?-?-?-?-?-?- Negative 140 24 -?-?-?-?-?-?-?-?-?-?-?-?- SM- no vb lof go od fm no reugla rctx co anxiety and depresion, heartburn 03/23/25 -?-?-?-?-?-?-?-?-?-?-?-?- 28w 1d 222 lb 114/72 Negative -?-?-?-?-?-?-?-?-?-?-?-?- Negative 152 29 -?-?-?-?-?-?-?-?-?-?-?-?- MH_No Vb, LOF. G ood FM. 28 wk labs, larc. tdap declined. Some anxiety but r/t family stressors. Seeing counselor. 04/08/25 -?-?-?-?-?-?-?-?-?-?-?-?- 30w 3d 226 lb 9 oz 121/77 Trac e -?-?-?-?-?-?-?-?-?-?-?-?- Negative 145 32 -?-?-?-?-?-?-?-?-?-?-?-?- SM- no vb lof go od fm no regualr ctx discussed right rib pain and seen in ER over the weekend for symptoms ACOG First Trimester First Trimester: Desire for , Alcohol, Tobacco Cessation, Illicit/Recreational Drug/Substance Use, Intimate Partner Violence, Barriers to care, Unstable Housing, Communication Barriers, Environmental/Work Hazards, Anticipated Course of Care, Toxoplasmosis Precations, Use of Any medications, Sexual activity, Exercise, Dental Care, Sauna/Hot tub use, Seat Belt use, Childbirth classes/Hospital facilities, Travel, Indications for Ultrasound and Screening for Aneuploidy; Discussed Second Trimester Second Trimester: Signs and Symptoms of Labor, Depression/Anxiety and Intimate Partner Violence Third Trimester Third Trimester: Pain Management Plans, Labor support person(s), Immediate Larc, Signs and Symptoms of Preeclampsia, Feeding No and Family Medical Leave or Disability Forms Results POC Urinalysis 2 Dip (Clinic) Office Urine Glucose Negative Last Edit by Bertha Harvey on 04/08/25 13:06 Office Urine Protein Trace Last Edit by Bertha Harvey on 04/08/25 13:06 Coding Level of Care Code OB Routine Diagnoses Anxiety and depression F41.9; F32.9 Group B Streptococcus urinary tract infection affecting in third trimester O23.43; B95.1 Trimester: third trimester 30 weeks gestation of Z3A.30 Weeks of gestation: 30 weeks Supervision of high risk in third trimester O09.93 Trimester: third trimester History of marijuana use F12.91 Hx of depression, currently O99.891; Z86.59 FH: cleft lip and palate Z82.79 Assessment and Plan Assessment and Plan (1) Anxiety and depression: Status: Acute Comment: see counselor; katty (2) GBS (group B streptococcus) UTI complicating : Status: Acute Qualifiers: Trimester: third trimester Qualified Code(s): O23.43 - Unspecified infection of urinary tract in , third trimester; B95.1 - Streptococcus, group B, as the cause of diseases classified elsewhere Comment: PCN in labor (3) : Status: Acute Qualifiers: Weeks of gestation: 30 weeks Qualified Code(s): Z3A.30 - 30 weeks gestation of Comment: LR NIPT. declined carrier, normal anatomy (4) Supervision of high-risk : Status: Acute Qualifiers: Trimester: third trimester Qualified Code(s): O09.93 - Supervision of high risk , unspecified, third trimester Comment: PRR , TIFFANY 06/14/25, girl Teresa PC Tevin Anderson Ruby, Partner Chintan (5) History of marijuana use: Status: Acute Comment: Gummies last used 05/31, discussed random tox screens during (6) Hx of depression, currently : Status: Acute (7) FH: cleft lip and palate: Status: Acute Comment: Brother Orders: Orders POC Urinalysis 2 Dip (Clinic) Today Plan Details Goals & Barriers: Goals Decrease spasm Improve motion of sacrum 04/08/25 1334 <Electronically signed by Dulce woodard MD> Date _ Dulce Villar MD Cosigner Signature: Date (if applicable) CC: ~ [facility] Work Phone: Reason for referral (narrative)No reason for referral information availableWJ.W. [facility] Work Phone: Summary Purpose Family History No Family History Records Found Relationship Condition Age at Onset Recorded Date/T malia grandfather Diabetes mellitus Unknown Cardiac disease Unknown grandfather Malignant neoplasm Unknown Relationship Condition Age at Onset Recorded Date/T malia grandfather Diabetes mellitus Unknown Cardiac disease Unknown aunt Malignant neoplasm 20 Advance Directives No Advanced Directives Records Found Advance Directive Response Recorded Date/ Time Living Will No January 13, 2021 7 :33am Power of Paper Roll Machine Operator No January 13, 2021 7:33am Advance Directive Response Recorded Date/ Time Living Will No January 13, 2021 6 :33am Power of Paper Roll Machine Operator No January 13, 2021 6:33am Advance Directive Response Recorded Date/ Time Living Will No June 16 11:16pm Power of Paper Roll Machine Operator No June 16, 2022 11:16pm Advance Directive Response Recorded Date/ Time Living Will No July 06, 022 4:37pm Power of Paper Roll Machine Operator No July 06, 2022 4:37pm Advance Directive Response Recorded Date/ Time Living Will No July 06 5:37pm Power of Paper Roll Machine Operator No July 06, 2022 5:37pm Advance Directive Response Recorded Date/ Time Do you have a [facility] Power of Paper Roll Machine Operator? 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) THYROMEGALY BILATERAL THYROID NODULES COUGH EORDER- LABS AND XRAY DIZZINESS Reason for Visit Family history of ov larry cancer Encounter for routine gynecological examination Thyromegaly Chief Complaint Admit Date THYROMEGALY July 20, 2024 4 :01pm FU AFTER PREGNANY TERINMATION August 092024 1:36pm Amb Documentation October 23, 2024 8:0 8am new ob November 06, 2024 4:13pm Reason for Visit Admit Date Induced September 01, 2024 1:36pm FH: cleft lip and palate November 06, 2024 4 :13pm History of marijuana use November 06, 2024 4 :13pm Hx of depression, currently p regnant November 06, 2024 4:13pm November 06, 2024 4:13pm Supervision of high-risk November 062024 4:13pm Chief Complaint Admit Date FU AFTER PREGNANY TERINMATION August 092024 1:36pm Amb Documentation October 23, 2024 8:0 8am new ob November 06, 2024 4:13pm 10 wk ob November 16, 2024 12:56 pm Reason for Visit Admit Date Induced September 01, 2024 1:36pm FH: cleft lip and palate November 06, 2024 4 :13pm History of marijuana use November 06, 2024 4 :13pm Hx of depression, currently p regnant November 06, 2024 4:13pm November 06, 2024 4:13pm Supervision of high-risk November 062024 4:13pm FH: cleft lip and palate November 16, 2024 12:56pm History of marijuana use November 16, 2024 12:56pm Hx of depression, currently p regnant November 16, 2024 12:56pm November 16, 2024 12:56 pm Supervision of high-risk November 052024 12:56pm Chief Complaint Admit Date FU AFTER PREGNANY TERINMATION August 092024 1:36pm Amb Documentation October 23, 2024 8:0 8am new ob November 06, 2024 4:13pm 10 wk ob November 16, 2024 12:56 pm 12wk OB December 03, 2024 8:27a m Reason for Visit Admit Date Induced September 01, 2024 1:36pm FH: cleft lip and palate November 06, 2024 4 :13pm History of marijuana use November 06, 2024 4 :13pm Hx of depression, currently p regnant November 06, 2024 4:13pm November 06, 2024 4:13pm Supervision of high-risk November 062024 4:13pm FH: cleft lip and palate November 16, 2024 12:56pm History of marijuana use November 16, 2024 12:56pm Hx of depression, currently p regnant November 16, 2024 12:56pm November 16, 2024 12:56 pm Supervision of high-risk November 052024 12:56pm FH: cleft lip and palate December 03, 2024 8:27am History of marijuana use December 03, 2024 8:27am Hx of depression, currently p regnant December 03, 2024 8:27am December 03, 2024 8:27a m Supervision of high-risk November 062024 8:27am Reason for Visit Admit Date Induced September 01, 2024 1:36pm FH: cleft lip and palate November 06, 2024 4 :13pm History of marijuana use November 06, 2024 4 :13pm Hx of depression, currently p regnant November 06, 2024 4:13pm November 06, 2024 4:13pm Supervision of high-risk November 062024 4:13pm FH: cleft lip and palate November 16, 2024 12:56pm History of marijuana use November 16, 2024 12:56pm Hx of depression, currently p regnant November 16, 2024 12:56pm November 16, 2024 12:56 pm Supervision of high-risk November 052024 12:56pm Dysuria December 03, 2024 8:27a m FH: cleft lip and palate December 03, 2024 8:27am History of marijuana use December 03, 2024 8:27am Hx of depression, currently p regnant December 03, 2024 8:27am December 03, 2024 8:27a m Supervision of high-risk November 062024 8:27am Chief Complaint Admit Date Amb Documentation October 23, 2024 8:0 8am new ob November 06, 2024 4:13pm 10 wk ob November 16, 2024 12:56 pm 12wk OB December 03, 2024 8:27a m 16 wk ob January 01, 2025 10:1 1am Reason for Visit Admit Date FH: cleft lip and palate November 06, 2024 4 :13pm History of marijuana use November 06, 2024 4 :13pm Hx of depression, currently p regnant November 06, 2024 4:13pm November 06, 2024 4:13pm Supervision of high-risk November 062024 4:13pm FH: cleft lip and palate November 16, 2024 12:56pm History of marijuana use November 16, 2024 12:56pm Hx of depression, currently p regnant November 16, 2024 12:56pm November 16, 2024 12:56 pm Supervision of high-risk November 052024 12:56pm Dysuria December 03, 2024 8:27a m FH: cleft lip and palate December 03, 2024 8:27am History of marijuana use December 03, 2024 8:27am Hx of depression, currently p regnant December 03, 2024 8:27am December 03, 2024 8:27a m Supervision of high-risk November 062024 8:27am Dysuria January 01, 2025 10:1 1am FH: cleft lip and palate January 01, 2025 10:11am GBS (group B streptococcus) UTI complica ting January 01, 2025 10:11am History of marijuana use January 01, 2025 10:11am Hx of depression, currently p regnant January 01, 2025 10:11am January 01, 2025 10:1 1am Supervision of high-risk January 01, 2025 10:11am Chief Complaint Admit Date Amb Documentation October 23, 2024 8:0 8am new ob November 06, 2024 4:13pm 10 wk ob November 16, 2024 12:56 pm 12wk OB December 03, 2024 8:27a m 16 wk ob January 01, 2025 10:1 1am 20 wk ob January 29, 2025 8:40 am Reason for Visit Admit Date FH: cleft lip and palate November 06, 2024 4 :13pm History of marijuana use November 06, 2024 4 :13pm Hx of depression, currently p regnant November 06, 2024 4:13pm November 06, 2024 4:13pm Supervision of high-risk November 062024 4:13pm FH: cleft lip and palate November 16, 2024 12:56pm History of marijuana use November 16, 2024 12:56pm Hx of depression, currently p regnant November 16, 2024 12:56pm November 16, 2024 12:56 pm Supervision of high-risk November 052024 12:56pm Dysuria December 03, 2024 8:27a m FH: cleft lip and palate December 03, 2024 8:27am History of marijuana use December 03, 2024 8:27am Hx of depression, currently p regnant December 03, 2024 8:27am December 03, 2024 8:27a m Supervision of high-risk November 062024 8:27am Dysuria January 01, 2025 10:1 1am FH: cleft lip and palate January 01, 2025 10:11am GBS (group B streptococcus) UTI complica ting January 01, 2025 10:11am History of marijuana use January 01, 2025 10:11am Hx of depression, currently p regnant January 01, 2025 10:11am January 01, 2025 10:1 1am Supervision of high-risk January 01, 2025 10:11am Dysuria January 29, 2025 8:40 am FH: cleft lip and palate January 29, 2025 8:40am GBS (group B streptococcus) UTI complica ting January 29, 2025 8:40am History of marijuana use January 29, 2025 8:40am Hx of depression, currently p regnant January 29, 2025 8:40am January 29, 2025 8:40 am Supervision of high-risk January 29, 2025 8:40am Chief Complaint Admit Date new ob November 06, 2024 4:13pm 10 wk ob November 16, 2024 12:56 pm 12wk OB December 03, 2024 8:27a m 16 wk ob January 01, 2025 10:1 1am 20 wk ob January 29, 2025 8:40 am 24 WK OB February 26, 2025 3: 35pm Reason for Visit Admit Date FH: cleft lip and palate November 06, 2024 4 :13pm History of marijuana use November 06, 2024 4 :13pm Hx of depression, currently p regnant November 06, 2024 4:13pm November 06, 2024 4:13pm Supervision of high-risk November 062024 4:13pm FH: cleft lip and palate November 16, 2024 12:56pm History of marijuana use November 16, 2024 12:56pm Hx of depression, currently p regnant November 16, 2024 12:56pm November 16, 2024 12:56 pm Supervision of high-risk November 052024 12:56pm Dysuria December 03, 2024 8:27a m FH: cleft lip and palate December 03, 2024 8:27am History of marijuana use December 03, 2024 8:27am Hx of depression, currently p regnant December 03, 2024 8:27am December 03, 2024 8:27a m Supervision of high-risk November 062024 8:27am Dysuria January 01, 2025 10:1 1am FH: cleft lip and palate January 01, 2025 10:11am GBS (group B streptococcus) UTI complica ting January 01, 2025 10:11am History of marijuana use January 01, 2025 10:11am Hx of depression, currently p regnant January 01, 2025 10:11am January 01, 2025 10:1 1am Supervision of high-risk January 01, 2025 10:11am Dysuria January 29, 2025 8:40 am FH: cleft lip and palate January 29, 2025 8:40am GBS (group B streptococcus) UTI complica ting January 29, 2025 8:40am History of marijuana use January 29, 2025 8:40am Hx of depression, currently p regnant January 29, 2025 8:40am January 29, 2025 8:40 am Supervision of high-risk January 29, 2025 8:40am Dysuria February 26, 2025 3: 35pm FH: cleft lip and palate February 26 3:35pm GBS (group B streptococcus) UTI complica ting February 26, 2025 3:35pm History of marijuana use February 26 3:35pm Hx of depression, currently p regnant February 26, 2025 3:35pm February 26, 2025 3: 35pm Supervision of high-risk Augus t 2024 3:35pm Chief Complaint Admit Date 12wk OB December 03, 2024 8:27a m 16 wk ob January 01, 2025 10:1 1am 20 wk ob January 29, 2025 8:40 am 24 WK OB February 26, 2025 3: 35pm 28 WK OB/Glucose March 23, 2025 9:56am Reason for Visit Admit Date FH: cleft lip and palate December 03, 2024 8:27am History of marijuana use December 03, 2024 8:27am Hx of depression, currently p regnant December 03, 2024 8:27am December 03, 2024 8:27a m Supervision of high-risk November 062024 8:27am Dysuria December 03, 2024 8:27a m FH: cleft lip and palate January 01, 2025 10:11am GBS (group B streptococcus) UTI complica ting January 01, 2025 10:11am History of marijuana use January 01, 2025 10:11am Hx of depression, currently p regnant January 01, 2025 10:11am January 01, 2025 10:1 1am Supervision of high-risk January 01, 2025 10:11am Dysuria January 01, 2025 10:1 1am FH: cleft lip and palate January 29, 2025 8:40am GBS (group B streptococcus) UTI complica ting January 29, 2025 8:40am History of marijuana use January 29, 2025 8:40am Hx of depression, currently p regnant January 29, 2025 8:40am January 29, 2025 8:40 am Supervision of high-risk January 29, 2025 8:40am Dysuria January 29, 2025 8:40 am FH: cleft lip and palate February 26 3:35pm GBS (group B streptococcus) UTI complica ting February 26, 2025 3:35pm History of marijuana use February 26 3:35pm Hx of depression, currently p regnant February 26, 2025 3:35pm February 26, 2025 3: 35pm Supervision of high-risk Augus t 2024 3:35pm Dysuria February 26, 2025 3: 35pm FH: cleft lip and palate March 23, 2025 9:56am GBS (group B streptococcus) UTI complica ting March 23, 2025 9:56am History of marijuana use March 23, 2025 9:56am Hx of depression, currently p regnant March 23, 2025 9:56am March 23, 2025 9:56am Supervision of high-risk [facility] 2024 9:56am Chief Complaint Admit Date 16 wk ob January 01, 2025 10:1 1am 20 wk ob January 29, 2025 8:40 am 24 WK OB February 26, 2025 3: 35pm 28 WK OB/Glucose March 23, 2025 9:56am SCREEN FOR GESTATIONAL DM March 9:57am R/O PRE April 05, 2025 9:32am R/O PRE April 05, 2025 10:46am cp April 05, 2025 11:25am Reason for Visit Admit Date FH: cleft lip and palate January 01, 2025 10:11am GBS (group B streptococcus) UTI complica ting January 01, 2025 10:11am History of marijuana use January 01, 2025 10:11am Hx of depression, currently p regnant January 01, 2025 10:11am January 01, 2025 10:1 1am Supervision of high-risk January 01, 2025 10:11am Dysuria January 01, 2025 10:1 1am FH: cleft lip and palate January 29, 2025 8:40am GBS (group B streptococcus) UTI complica ting January 29, 2025 8:40am History of marijuana use January 29, 2025 8:40am Hx of depression, currently p regnant January 29, 2025 8:40am January 29, 2025 8:40 am Supervision of high-risk January 29, 2025 8:40am Dysuria January 29, 2025 8:40 am FH: cleft lip and palate February 26 3:35pm GBS (group B streptococcus) UTI complica ting February 26, 2025 3:35pm History of marijuana use February 26 3:35pm Hx of depression, currently p regnant February 26, 2025 3:35pm February 26, 2025 3: 35pm Supervision of high-risk Augus t 2024 3:35pm Dysuria February 26, 2025 3: 35pm Anxiety and depression March 23 2 025 9:56am FH: cleft lip and palate March 23, 2025 9:56am GBS (group B streptococcus) UTI complica ting March 23, 2025 9:56am History of marijuana use March 23, 2025 9:56am Hx of depression, currently p regnant March 23, 2025 9:56am March 23, 2025 9:56am Supervision of high-risk [facility] 2024 9:56am Anxiety and depression April 05 2 025 9:32am Blurred vision April 05, 2025 9:32am FH: cleft lip and palate April 05, 2025 9:32am GBS (group B streptococcus) UTI complica ting April 05, 2025 9:32am History of marijuana use April 05, 2025 9:32am Hx of depression, currently p regnant April 05, 2025 9:32am April 05, 2025 9:32am Supervision of high-risk [facility] 2024 9:32am Chief Complaint Admit Date 16 wk ob January 01, 2025 10:1 1am 20 wk ob January 29, 2025 8:40 am 24 WK OB February 26, 2025 3: 35pm 28 WK OB/Glucose March 23, 2025 9:56am SCREEN FOR GESTATIONAL DM March 9:57am R/O PRE April 05, 2025 9:32am R/O PRE April 05, 2025 10:46am cp April 05, 2025 11:25am 30 WK OB April 08, 2025 12 :46pm Reason for Visit Admit Date FH: cleft lip and palate January 01, 2025 10:11am GBS (group B streptococcus) UTI complica ting January 01, 2025 10:11am History of marijuana use January 01, 2025 10:11am Hx of depression, currently p regnant January 01, 2025 10:11am January 01, 2025 10:1 1am Supervision of high-risk January 01, 2025 10:11am Dysuria January 01, 2025 10:1 1am FH: cleft lip and palate January 29, 2025 8:40am GBS (group B streptococcus) UTI complica ting January 29, 2025 8:40am History of marijuana use January 29, 2025 8:40am Hx of depression, currently p regnant January 29, 2025 8:40am January 29, 2025 8:40 am Supervision of high-risk January 29, 2025 8:40am Dysuria January 29, 2025 8:40 am FH: cleft lip and palate February 26 3:35pm GBS (group B streptococcus) UTI complica ting February 26, 2025 3:35pm History of marijuana use February 26 3:35pm Hx of depression, currently p regnant February 26, 2025 3:35pm February 26, 2025 3: 35pm Supervision of high-risk Augus t 2024 3:35pm Dysuria February 26, 2025 3: 35pm Anxiety and depression March 23 025 9:56am FH: cleft lip and palate March 23, 2025 9:56am GBS (group B streptococcus) UTI complica ting March 23, 2025 9:56am History of marijuana use March 23, 2025 9:56am Hx of depression, currently p regnant March 23, 2025 9:56am March 23, 2025 9:56am Supervision of high-risk [facility] 2024 9:56am Anxiety and depression April 05, 025 9:32am FH: cleft lip and palate April 05, 2025 9:32am GBS (group B streptococcus) UTI complica ting April 05, 2025 9:32am History of marijuana use April 05, 2025 9:32am Hx of depression, currently p regnant April 05, 2025 9:32am April 05, 2025 9:32am Supervision of high-risk [facility] 2024 9:32am Blurred vision April 05, 2025 9:32am Anxiety and depression April 08, 2025 12:46pm FH: cleft lip and palate April 08 12:46pm GBS (group B streptococcus) UTI complica ting April 08, 2025 12:46pm History of marijuana use April 08 12:46pm Hx of depression, currently p regnant April 08, 2025 12:46pm April 08, 2025 12 :46pm Supervision of high-risk Octob 2024 12:46pm Additional Source Comments INFORMATION SOURCE (unrecogn ized section and content) DATE CREATED AUTHOR 12/10/2018 [facility] DATE CREATED AUTHOR AUTHOR'S ORGANIZ ATION 02/16/2025 [facility] DATE CREATED AUTHOR AUTHOR'S ORGANIZ ATION 04/27/[address] [facility] Care Teams (unrecognized sec tion and content) Team Status: Active Member Role Status Dates Ariadne LARA MD Family Provider Active Morris LARA MD Primary Care Provider Active Team Status: Inactive Member Role Status Dates Morris LARA MD Primary Care Provider Active Dr. Ashlyn Lagos DO Attending Provider Activ e Team Status: Active Member Role Status Dates Ariadne LARA MD Family Provider Active Dr. Braulio Bosch MD Primary Care Provider Acti ve Team Status: Inactive Member Role Status Dates Dr. Braulio Bosch MD Primary Care Provider Acti ve Start: July 20, 2024 End: July 20, 2024 Dr. Dulce Villar MD Attending Provider Active Start: July 20, 2024 End: July 20, 2024 Dr. Dulce Villar MD Referring Provider Active Start: July 20, 2024 End: July 20, 2024 Team Status: Inactive Member Role Status Dates Dr. Braulio Bosch MD Primary Care Provider Acti ve Start: September 01, 2024 End: September 01, 2024 Dr. Braulio Bosch MD Referring Provider Active Start: September 01, 2024 End: September 01, 2024 Dr. Dulce Villar MD Attending Provider Active Start: September 01, 2024 End: September 01, 2024 Team Status: Active Member Role Status Dates Dr. Braulio Bosch MD Primary Care Provider Acti ve Start: October 23, 2024 Stacy Barron RN Attending Provider Active St art: October 23, 2024 Team Status: Inactive Member Role Status Dates Dr. Braulio Bosch MD Primary Care Provider Acti ve Start: November 06, 2024 End: November 06, 2024 Dr. Braulio Bosch MD Referring Provider Active Start: November 06, 2024 End: November 06, 2024 Dr. Dulce Villar MD Attending Provider Active Start: November 06, 2024 End: November 06, 2024 Team Status: Inactive Member Role Status Dates Dr. Braulio Bosch MD Primary Care Provider Acti ve Start: November 06, 2024 End: November 06, 2024 Dr. Dulce Villar MD Attending Provider Active Start: November 06, 2024 End: November 06, 2024 Team Status: Inactive Member Role Status Dates Dr. Braulio Bosch MD Primary Care Provider Acti ve Start: November 16, 2024 End: November 16, 2024 Dr. Braulio Bosch MD Referring Provider Active Start: November 16, 2024 End: November 16, 2024 Dr. Dulce Villar MD Attending Provider Active Start: November 16, 2024 End: November 16, 2024 Team Status: Inactive Member Role Status Dates Dr. Braulio Bosch MD Primary Care Provider Acti ve Start: November 16, 2024 End: November 16, 2024 Dr. Dulce Villar MD Attending Provider Active Start: November 16, 2024 End: November 16, 2024 Dr. Dulce Villar MD Referring Provider Active Start: November 16, 2024 End: November 16, 2024 Team Status: Inactive Member Role Status Dates Dr. Braulio Bosch MD Primary Care Provider Acti ve Start: December 03, 2024 End: December 03, 2024 Dr. Braulio Bosch MD Referring Provider Active Start: December 03, 2024 End: December 03, 2024 Dr. Dulce Villar MD Attending Provider Active Start: December 03, 2024 End: December 03, 2024 Team Status: Inactive Member Role Status Dates Dr. Braulio Bosch MD Primary Care Provider Acti ve Start: December 03, 2024 End: December 03, 2024 Dr. Dulce Villar MD Attending Provider Active Start: December 03, 2024 End: December 03, 2024 Dr. Dulce Villar MD Referring Provider Active Start: December 03, 2024 End: December 03, 2024 Team Status: Active Member Role/Relationship Status Dates Ariadne LARA MD Family Provider Active Dr. Braulio Bosch MD Primary Care Provider Acti ve Team Status: Active Member Role/Relationship Status Dates Dr. Braulio Bosch MD Primary Care Provider Acti ve Start: October 23, 2024 Stacy Barron RN Attending Provider Active St art: October 23, 2024 Team Status: Inactive Member Role/Relationship Status Dates Dr. Braulio Bosch MD Primary Care Provider Acti ve Start: November 06, 2024 End: November 06, 2024 Dr. Braulio Bosch MD Referring Provider Active Start: November 06, 2024 End: November 06, 2024 Dr. Dulce Villar MD Attending Provider Active Start: November 06, 2024 End: November 06, 2024 Team Status: Inactive Member Role/Relationship Status Dates Dr. Braulio Bosch MD Primary Care Provider Acti ve Start: November 06, 2024 End: November 06, 2024 Dr. Dulce Villar MD Attending Provider Active Start: November 06, 2024 End: November 06, 2024 Team Status: Inactive Member Role/Relationship Status Dates Dr. Braulio Bosch MD Primary Care Provider Acti ve Start: November 16, 2024 End: November 16, 2024 Dr. Braulio Bosch MD Referring Provider Active Start: November 16, 2024 End: November 16, 2024 Dr. Dulce Villar MD Attending Provider Active Start: November 16, 2024 End: November 16, 2024 Team Status: Inactive Member Role/Relationship Status Dates Dr. Braulio Bosch MD Primary Care Provider Acti ve Start: November 16, 2024 End: November 16, 2024 Dr. Dulce Villar MD Attending Provider Active Start: November 16, 2024 End: November 16, 2024 Dr. Dulce Villar MD Referring Provider Active Start: November 16, 2024 End: November 16, 2024 Team Status: Inactive Member Role/Relationship Status Dates Dr. Braulio Bosch MD Primary Care Provider Acti ve Start: December 03, 2024 End: December 03, 2024 Dr. Braulio Bosch MD Referring Provider Active Start: December 03, 2024 End: December 03, 2024 Dr. Dulce Villar MD Attending Provider Active Start: December 03, 2024 End: December 03, 2024 Team Status: Inactive Member Role/Relationship Status Dates Dr. Braulio Bosch MD Primary Care Provider Acti ve Start: December 03, 2024 End: December 03, 2024 Dr. Dulce Villar MD Attending Provider Active Start: December 03, 2024 End: December 03, 2024 Dr. Dulce Villar MD Referring Provider Active Start: December 03, 2024 End: December 03, 2024 Team Status: Inactive Member Role/Relationship Status Dates Dr. Braulio Bsoch MD Primary Care Provider Acti ve Start: January 01, 2025 End: January 01, 2025 Dr. Braulio Bosch MD Referring Provider Active Start: January 01, 2025 End: January 01, 2025 Dr. Ashyln Lagos DO Attending Provider Activ e Start: January 01, 2025 End: January 01, 2025 Team Status: Inactive Member Role/Relationship Status Dates Dr. Braulio Bosch MD Primary Care Provider Acti ve Start: January 29, 2025 End: January 29, 2025 Dr. Braulio Bosch MD Referring Provider Active Start: January 29, 2025 End: January 29, 2025 Mary Madrigal CNM Attending Provider Active S tart: January 29, 2025 End: January 29, 2025 Team Status: Inactive Member Role/Relationship Status Dates Dr. Braulio Bosch MD Primary Care Provider Acti ve Start: January 29, 2025 End: January 29, 2025 Dr. Dulce Villar MD Attending Provider Active Start: January 29, 2025 End: January 29, 2025 Team Status: Inactive Member Role/Relationship Status Dates Dr. Braulio Bosch MD Primary Care Provider Acti ve Start: November 06, 2024 End: November 06, 2024 Dr. Braulio Bosch MD Referring Provider Active Start: November 06, 2024 End: November 06, 2024 Dr. Dulce Villar MD Attending Provider Active Start: November 06, 2024 End: November 06, 2024 Team Status: Inactive Member Role/Relationship Status Dates Dr. Braulio Bosch MD Primary Care Provider Acti ve Start: November 06, 2024 End: November 06, 2024 Dr. Dulce Villar MD Attending Provider Active Start: November 06, 2024 End: November 06, 2024 Team Status: Inactive Member Role/Relationship Status Dates Dr. Braulio Bosch MD Primary Care Provider Acti ve Start: November 16, 2024 End: November 16, 2024 Dr. Braulio Bosch MD Referring Provider Active Start: November 16, 2024 End: November 16, 2024 Dr. Dulce Villar MD Attending Provider Active Start: November 16, 2024 End: November 16, 2024 Team Status: Inactive Member Role/Relationship Status Dates Dr. Braulio Bosch MD Primary Care Provider Acti ve Start: November 16, 2024 End: November 16, 2024 Dr. Dulce Villar MD Attending Provider Active Start: November 16, 2024 End: November 16, 2024 Dr. Dulce Villar MD Referring Provider Active Start: November 16, 2024 End: November 16, 2024 Team Status: Inactive Member Role/Relationship Status Dates Dr. Braulio Bosch MD Primary Care Provider Acti ve Start: December 03, 2024 End: December 03, 2024 Dr. Braulio Bosch MD Referring Provider Active Start: December 03, 2024 End: December 03, 2024 Dr. Dulce Villar MD Attending Provider Active Start: December 03, 2024 End: December 03, 2024 Team Status: Inactive Member Role/Relationship Status Dates Dr. Braulio Bosch MD Primary Care Provider Acti ve Start: December 03, 2024 End: December 03, 2024 Dr. Dulce Villar MD Attending Provider Active Start: December 03, 2024 End: December 03, 2024 Dr. Dulce Villar MD Referring Provider Active Start: December 03, 2024 End: December 03, 2024 Team Status: Inactive Member Role/Relationship Status Dates Dr. Braulio Bosch MD Primary Care Provider Acti ve Start: January 01, 2025 End: January 01, 2025 Dr. Braulio Bosch MD Referring Provider Active Start: January 01, 2025 End: January 01, 2025 Dr. Ashlyn Lagos DO Attending Provider Activ e Start: January 01, 2025 End: January 01, 2025 Team Status: Inactive Member Role/Relationship Status Dates Dr. Braulio Bosch MD Primary Care Provider Acti ve Start: January 29, 2025 End: January 29, 2025 Dr. Braulio Bosch MD Referring Provider Active Start: January 29, 2025 End: January 29, 2025 Mary Madrigal CNM Attending Provider Active S tart: January 29, 2025 End: January 29, 2025 Team Status: Inactive Member Role/Relationship Status Dates Dr. Braulio Bosch MD Primary Care Provider Acti ve Start: January 29, 2025 End: January 29, 2025 Dr. Dulce Villar MD Attending Provider Active Start: January 29, 2025 End: January 29, 2025 Team Status: Inactive Member Role/Relationship Status Dates Dr. Braulio Bosch MD Primary Care Provider Acti ve Start: February 26, 2025 End: February 26, 2025 Dr. Braulio Bsoch MD Referring Provider Active Start: February 26, 2025 End: February 26, 2025 Dr. Dulce Villar MD Attending Provider Active Start: February 26, 2025 End: February 26, 2025 Team Status: Inactive Member Role/Relationship Status Dates Dr. Braulio Bosch MD Primary Care Provider Acti ve Start: December 03, 2024 End: December 03, 2024 Dr. Braulio Bosch MD Referring Provider Active Start: December 03, 2024 End: December 03, 2024 Dr. Dulce Villar MD Attending Provider Active Start: December 03, 2024 End: December 03, 2024 Team Status: Inactive Member Role/Relationship Status Dates Dr. Braulio Bosch MD Primary Care Provider Acti ve Start: December 03, 2024 End: December 03, 2024 Dr. Dulce Villar MD Attending Provider Active Start: December 03, 2024 End: December 03, 2024 Dr. Dulce Villar MD Referring Provider Active Start: December 03, 2024 End: December 03, 2024 Team Status: Inactive Member Role/Relationship Status Dates Dr. Braulio Bosch MD Primary Care Provider Acti ve Start: January 01, 2025 End: January 01, 2025 Dr. Braulio Bosch MD Referring Provider Active Start: January 01, 2025 End: January 01, 2025 Dr. Ashlyn Lagos DO Attending Provider Activ e Start: January 01, 2025 End: January 01, 2025 Team Status: Inactive Member Role/Relationship Status Dates Dr. Braulio Bosch MD Primary Care Provider Acti ve Start: January 29, 2025 End: January 29, 2025 Dr. Braulio Bosch MD Referring Provider Active Start: January 29, 2025 End: January 29, 2025 Mary Madrigal CNM Attending Provider Active S tart: January 29, 2025 End: January 29, 2025 Team Status: Inactive Member Role/Relationship Status Dates Dr. Braulio Bosch MD Primary Care Provider Acti ve Start: January 29, 2025 End: January 29, 2025 Dr. Dulce Villar MD Attending Provider Active Start: January 29, 2025 End: January 29, 2025 Team Status: Inactive Member Role/Relationship Status Dates Dr. Braulio Bosch MD Primary Care Provider Acti ve Start: February 26, 2025 End: February 26, 2025 Dr. Braulio Bosch MD Referring Provider Active Start: February 26, 2025 End: February 26, 2025 Dr. Dulce Villar MD Attending Provider Active Start: February 26, 2025 End: February 26, 2025 Team Status: Inactive Member Role/Relationship Status Dates Dr. Braulio Bosch MD Primary Care Provider Acti ve Start: March 23, 2025 End: March 23, 2025 Dr. Braulio Bosch MD Referring Provider Active Start: March 23, 2025 End: March 23, 2025 Bertha May NP, IMAGING TECH-C Attending Provider Active Start: March 23, 2025 End: March 23, 2025 Team Status: Active Member Role/Relationship Status Dates Dr. Braulio Bosch MD Primary Care Provider Acti ve Start: March 23, 2025 Dr. Dulce Villar MD Attending Provider Active Start: March 23, 2025 Dr. Dulce Villar MD Referring Provider Active Start: March 23, 2025 Team Status: Active Member Role/Relationship Status Dates Dr. Braulio Bosch MD Primary care physician Act dayana Team Status: Inactive Member Role/Relationship Status Dates Dr. Braulio Bosch MD Primary care physician Act day[place] Start: January 01, 2025 End: January 01, 2025 Dr. Braulio Bsoch MD Referring Provider Active Start: January 01, 2025 End: January 01, 2025 Dr. Ashlyn Lagos DO Attending physician Acti ve Start: January 01, 2025 End: January 01, 2025 Team Status: Inactive Member Role/Relationship Status Dates Dr. Braulio Bosch MD Primary care physician Act [place] Start: January 29, 2025 End: January 29, 2025 Dr. Braulio Bosch MD Referring Provider Active Start: January 29, 2025 End: January 29, 2025 Mary Madrigal CNM Attending physician Active Start: January 29, 2025 End: January 29, 2025 Team Status: Inactive Member Role/Relationship Status Dates Dr. Braulio Bosch MD Primary care physician Act [place] Start: January 29, 2025 End: January 29, 2025 Dr. Dulce Villar MD Attending physician Active Start: January 29, 2025 End: January 29, 2025 Team Status: Inactive Member Role/Relationship Status Dates Dr. Braulio Bosch MD Primary care physician Act [place] Start: February 26, 2025 End: February 26, 2025 Dr. Braulio Bosch MD Referring Provider Active Start: February 26, 2025 End: February 26, 2025 Dr. Dulce Villar MD Attending physician Active Start: February 26, 2025 End: February 26, 2025 Team Status: Inactive Member Role/Relationship Status Dates Dr. Braulio Bosch MD Primary care physician Act day[place] Start: March 23, 2025 End: March 23, 2025 Dr. Braulio Bosch MD Referring Provider Active Start: March 23, 2025 End: March 23, 2025 Bertha May IMAGING TECH, IMAGING TECH-C Attending physician Active Start: March 23, 2025 End: March 23, 2025 Team Status: Inactive Member Role/Relationship Status Dates Dr. Braulio Bosch MD Primary care physician Act [place] Start: March 23, 2025 End: March 23, 2025 Dr. Dulce Villar MD Attending physician Active Start: March 23, 2025 End: March 23, 2025 Dr. Dulce Villar MD Referring Provider Active Start: March 23, 2025 End: March 23, 2025 Team Status: Inactive Member Role/Relationship Status Dates Dr. Braulio Bosch MD Primary care physician Act day[place] Start: March 26, 2025 End: March 26, 2025 Bertha May IMAGING TECH, IMAGING TECH-C Attending physician Active Start: March 26, 2025 End: March 26, 2025 Bertha May IMAGING TECH, IMAGING TECH-C Referring Provider Active Start: March 26, 2025 End: March 26, 2025 Team Status: Inactive Member Role/Relationship Status Dates Dr. Braulio Bosch MD Primary care physician Act day[place] Start: April 05, 2025 End: April 05, 2025 Mary Madrigal CNM Attending physician Active Start: April 05, 2025 End: April 05, 2025 Mary Madrigal CNM Referring Provider Active S tart: April 05, 2025 End: April 05, 2025 Team Status: Active Member Role/Relationship Status Dates Dr. Braulio Bosch MD Primary care physician Act day[place] Start: April 05, 2025 Mary Madrigal CNM Attending physician Active Start: April 05, 2025 Mary Madrigal CNM Referring Provider Active S tart: April 05, 2025 Mary Madrigal CNM Nurse Practitioner Active S tart: April 05, 2025 Team Status: Inactive Member Role/Relationship Status Dates Dr. Braulio Bosch MD Primary care physician Act day[place] Start: April 05, 2025 End: April 05, 2025 Dr. Alejandro [facility] Active Start: April 05, 2025 End: April 05, 2025 Team Status: Inactive Member Role/Relationship Status Dates Dr. Braulio Bosch MD Primary care physician Act day[place] Start: April 08, 2025 End: April 08, 2025 Dr. Braulio Bosch MD Referring Provider Active Start: April 08, 2025 End: April 08, 2025 Dr. Dulce Villar MD Attending physician Active Start: April 08, 2025 End: April 08, 2025 Team Status: Active Member Role/Relationship Status Dates Dr. Braulio Bosch MD Primary care physician Act day[place] Start: April 08, 2025 Dr. Dulce Villar MD Attending physician Active Start: April 08, 2025 FOR RECORDS PERTAINING TO PATIENTS WHO ARE OR HAVE BEEN ENROLLED IN A CHEMICAL DEPENDENCY/SUBSTANCEABUSE PROGRAM, SOME INFORMATION MAY BE OMITTED. This clinical summary was aggregated from multiple sources. Caution should be exercised in using it in the provision of clinical care. This summary normalizes information from multiple sources, and as a consequence, information in this document may materially change the coding, format and clinical context of patient data. In addition, data may be omitted in some cases. CLINICAL DECISIONS SHOULD BE BASED ON THE PRIMARY CLINICAL RECORDS. [facility] [employer] provides no warranty or guarantee of the accuracy or completeness of information in this document.
[2025-05-02] VITALS (8 sets, daily range): BP systolic 108–117; BP diastolic 62–74; PULSE 85–245; RESP 14; TEMP 36.6; O2SAT 81–98; BMI 38.5
--- NOTE | 2025-05-02 00:03 | OB.TRI.HP_ITS ---
HPI - General General Date of Admission: 05/01/25 HPI Narrative SHIRA ARBOLEDA, is a 34 y/o @ 33 weeks 5 days who presents to L&D with some visual changes and increase swelling. She denies headache or epigastric pain but wanted to be sure that her symptoms were not pre-e/ Maternal Data Information TIFFANY Calculator Estimated Delivery Date Method Current WG Current Estimate 06/14/25 LMP (Certain) 33w 6d Other Estimates 06/13/25 Ultrasound #1 34w 0d PFSH PFSH Medical History Anxiety and depression Elective Dizziness Shortness of breath Hemorrhoid GERD (gastroesophageal reflux disease) Genital herpes Home Medications ?Medication ?Instructions ?Recorded ?Last Taken ?Type multivit-min no.71-iron fum 28 1 cap PO DAILY 10/22/24 04/05/25 History mg-folate no.1 1 mg-dha 300 mg capsule ([facility]-[place]) hydroxyzine HCl 25 mg tablet 25 mg PO TID PRN anxiety #120 tabs 02/18/25 Unknown Rx fluoxetine 40 mg capsule 40 mg PO DAILY #30 caps 02/06 09/01 Unknown Rx Allergy/AdvReac Type Severity Reaction Status Date / Time Latex, Natural Rubber Allergy Intermediate Swelling Verified 04/23/25 15:32 amoxicillin Allergy Hives Verified 04/23/25 15:32 naproxen (From Aleve) Allergy Hives Verified 04/23/25 15:32 sulfamethoxazole (From Allergy Hives Verified 04/23/25 15:32 Bactrim) trimethoprim (From Bactrim) Allergy Hives Verified 04/23/25 15:32 Family History Grandfather Diabetes Heart disease Grandmother No problems noted. 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 current occupational exposures/hazards: No pets and animals: No history of recent travel: Yes ([place], [place], [place], [place]) out of state: Yes out of country: Yes sexually active: Yes Smoking Status: Never smoker alcohol intake: current alcohol intake frequency: holidays/special occasions only details: Not while substance use type: former substance user Date of last use: 6 months ago- gummies and marijuana well-balanced diet: daily or most days caffeine: No eating out: 1-3 times/week during the past year weight has: increased > 10 lbs what type of physical activity do you participate in: none naomi/protestant: None seatbelt use: always do you feel safe at home: Yes additional social history: FOB/BF - Chintan Ripple: [employer] Senior [employer] Architect History 5 Elective abortions 1 Hx Para 3 Spontaneous abortions Hx # Term Pregnancies 3 Ectopic pregnancies Hx # Pregnancies Multiple births # of living children 3 Past Pregnancies Del. Date Name GA/Weeks Outcome Route Bth Weight Gen Labor Lgth Anesthesia Del Locatn Provider RYAN 03/21/18 Justin 40 live - full term 9lbs 7oz Male epi dural [facility] 06/12/19 Thakur-Goes by Tevin 40 live - full term 8l bs 8oz Male epidural [facility] Dr. Olena Kilpatrick 01/13/21 Isamar 40 live - full term 7lbs 6oz Female ep idural [facility] Dr. Olena Kilpatrick 07/10/24 elective Delivery Date: 03/21/18 Last Updated by: Elvira Travis Prolonged labor, [place] Delivery Date: 06/12/19 Last Updated by: Elvira Travis hypotension during labor Visit Details Expected Delivery Route/Plan with SM if available Labor Preferences- CB/BF classes: no labor support person: Chintan labor intervention preferences: [] pain management options preferred: epidural cut cord/dad catch: yes : yes PP control planned: discussed discussed possible routes of delivery and associated risks: [] special requests: [] Plans Covid status: [] Flu vaccine: declines Tdap vaccine: declines Rhogam: NA LARC form signed: yes Problem list reviewed and updated with the most current plan of care details and appropriate orders placed. Relevant counseling for the gestational age provided. Continue routine care and follow up unless otherwise noted in visit notes/problem list details OB Flowsheet Initial Weight: Not Recorded Date -?-?-?-?-?-?-?-?-?-?-?-?- EGA Weight BP Urine Prot -?-?-?-?-?-?-?-?-?-?-?-?- Glucose FHR FuHt Pres Dilation -?-?-?-?-?-?-?-?-?-?-?-?- Effaced St Visit Note 11/06/24 -?-?-?-?-?-?-?-?-?-?-?-?- 8w 4d 188 lb 118/80 -?-?-?-?-?-?-?-?-?-?-?-?- 170 -?-?-?-?-?-?-?-?-?-?-?-?- SM- CRL 1.96cm c ons with lMP 11/16/24 -?-?-?-?-?-?-?-?-?-?-?-?- 10w 0d 189 lb 6 oz 116/74 Nega tive -?-?-?-?-?-?-?-?-?-?-?-?- Negative 150 -?-?-?-?-?-?-?-?-?-?-?-?- SM- no vb crampkrzysztof ng doing well 12/03/24 -?-?-?-?-?-?-?-?-?-?-?-?- 12w 3d 194 lb 119/79 Negative -?-?-?-?-?-?-?-?-?-?-?-?- Negative 160 -?-?-?-?-?-?-?-?-?-?-?-?- SM- having burni ng on urination after interoucrse only. some loss of taste and her tongue hurts, no significant whitening of tongue yet. 01/01/25 -?-?-?-?-?-?-?-?-?-?-?-?- 16w 4d 201 lb 6 oz 106/69 -?-?-?-?-?-?-?-?-?-?-?-?- 147 -?-?-?-?-?-?-?-?-?-?-?-?- JV- no lof, vagi nal bleeding, or cramping. Going to [facility] on a work trip soon. promethazine given for the flight. she knows not to continue JV- no lof, vaginal bleeding , or cramping. Going to [facility] on a work trip soon. promethazine given for the flight. she knows not to take the vistaril with it. 01/29/25 -?-?-?-?-?--?-?-?-?-?-?-?- 20w 4d 205 lb 4 oz 114/70 Nega tive -?-?-?-?-?-?-?-?-?-?-?-?- Negative 130 -?-?-?-?-?-?-?-?-?-?-?-?- KW- no vb/crampi ng. [place] fm recommended magnesium and iron for restless leg. follow up US in 2 weeks 02/26/25 -?-?-?-?-?-?-?-?-?-?-?-?- 24w 4d 216 lb 4 oz 117/76 Nega tive -?-?-?-?-?-?-?-?-?-?--?-?- Negative 140 24 -?-?-?-?-?-?-?-?-?-?-?-?- SM- no vb lof go od fm no reugla rctx co anxiety and depresion, heartburn 03/23/25 -?-?-?-?-?-?-?--?-?-?-?-?- 28w 1d 222 lb 114/72 Negative -?-?-?-?-?-?-?-?-?-?-?-?- Negative 152 29 -?-?-?-?-?-?-?-?-?-?-?-?- MH_No Vb, LOF. G ood FM. 28 wk labs, larc. tdap declined. Some anxiety but r/t family stressors. Seeing counselor. 04/08/25 -?-?-?-?-?-?-?-?-?-?-?-?- 30w 3d 226 lb 9 oz 121/77 Trac e -?-?-?--?-?-?-?-?-?-?-?-?- Negative 145 32 -?-?-?-?-?-?-?-?-?-?-?-?- SM- no vb lof go od fm no regualr ctx discussed right rib pain and seen in ER over the weekend for symptoms 04/23/25 -?-?-?-?-?-?-?-?-?-?-?-?- 32w 4d 235 lb 8 oz 106/72 Nega tive -?-?-?-?-?-?-?-?-?-?-?-?- Negative 140 34 -?-?-?-?-?-?-?-?-?-?-?-?- SM- no vb lof go od fm n oregular ctx ROS Constitutional Constitutional: Reports systems reviewed and no addt'l complaints, except as documented Gastrointestinal Gastrointestinal: Denies bloating, constipation, cramping, diarrhea, nausea or vomiting Genitourinary Genitourinary: Reports other Details: Denies vaginal odor, vaginal bleeding, or vaginal discharge ; Denies difficulty urinating or flank pain Physical Exam HEENT normocephalic Resp normal respiratory effort and normal air movement no CVA tenderness Extremity normal to inspection General Extremity: edema bilateral (trace ) NST FHR Rate Baby A Baseline: 140 Variability:: Moderate Accelerations:: 15 x 15 Decelerations:: None NST Reactive:: Yes FHR Category:: Category I Assessment & Plan (1) Anxiety and depression: COMMENT: see counselor; katty (2) GBS (group B streptococcus) UTI complicating : QUALIFIERS: Trimester: third trimester Qualified Code(s): O23.43 - Unspecified infection of urinary tract in , third trimester; B95.1 - Streptococcus, group B, as the cause of diseases classified elsewhere COMMENT: PCN in labor (3) : QUALIFIERS: Weeks of gestation: 32 weeks Qualified Code(s): Z3A.32 - 32 weeks gestation of COMMENT: LR NIPT. declined carrier, normal anatomy (4) Supervision of high-risk : QUALIFIERS: Trimester: third trimester Qualified Code(s): O09.93 - Supervision of high risk , unspecified, third trimester COMMENT: PRR , TIFFANY 06/14/25, girl [facility] Tevin Anderson Ruby, Partner Chintan (5) History of marijuana use: COMMENT: Gummies last used 05/31, discussed random tox screens during (6) Hx of depression, currently : (7) FH: cleft lip and palate: COMMENT: Brother PLAN: Plan labs all negative for pre-e bp normal ok to dc to home Charges/Coding Multi Select Codes Visit Charges Office Visit/Consults: 23084 OV L3 Est 20min Urinary/Genital Urinary/Genital CPT Codes: 90106-46 non-stress test Interp
[2025-05-02 00:46] LABS: Hematocrit 32.1 % (37-47); Hemoglobin 11.1 g/dL (12.0-15.0); Mean Corp Hgb Conc 34.6 g/dL (32-36); Mean Corpuscular Volume 86.3 fL (81-99); Mean Platelet Vol. 8.8 fl (6.2-12.0); Platelet Count 147 K/mm3 (150-450); RBC Distribution Width CV 12.6 % (11.6-14.6); RBC Distribution Width SD 39.6 fl (35.1-43.9); Red Blood Count 3.72 M/mm3 (4.2-5.4); White Blood Count 10.4 K/mm3 (4.4-11.0)
[2025-05-02 01:12] LABS: Creatinine, Urine (random) 28.30 mg/dL (28.00-217.00); Protein, Urine (Random) < 6.0 mg/dL (0.0-12.0); Protein:Creat Ratio 158 mg/g CRE (0-200)
[2025-05-02 01:13] LABS: AST(SGOT) 20 U/L (<=31); Alanine Aminotransfer ALT/SGPT 14 U/L (<=34); Estimated Creatinine Clearance 181.31 ml/min (50-250); Uric Acid 4.7 mg/dL (2.6-6.0)
== END 2025-05-02 01:35 | disposition home or self-care (01) ==
LOC: WPOUT 23:54 → WP 23:55
PROVIDERS: PCP Family Medicine; Referring Provider Obstetrics & Gynecology; Visit Provider Obstetrics & Gynecology
DX: O99.891 Other specified diseases and conditions complicating pregnancy (principal); R60.9 Edema, unspecified; Z3A.33 33 weeks gestation of pregnancy; O99.343 Other mental disorders complicating pregnancy, third trimester; F41.9 Anxiety disorder, unspecified; F32.A Depression, unspecified; O98.813 Other maternal infectious and parasitic diseases complicating pregnancy, third trimester; B95.1 Streptococcus, group B, as the cause of diseases classified elsewhere; Z82.79 Family history of other congenital malformations, deformations and chromosomal abnormalities
CPT/HCPCS: 36415; 59025; 59050; 82565; 82570; 84156; 84450; 84460; 84550; 85027; 99221; G0378

== ENCOUNTER → 2025-05-21 | Outpatient (CLI) | payer OTHER, SELFPAY ==
--- NOTE | 2025-05-21 15:30 | US_ITS ---
PROCEDURE: OB LIMITED WITH BIOMETRICS 05/21/2025 REASON FOR EXAM: GROWTH TECHNIQUE: Procedure Code: [id number] Modality: US Procedure: OB LIMITED WITH BIOMETRICS COMPARISON: None FINDINGS Number: 1 Position: Vertex Placental Position: Anterior and not low-lying Placental Abnormalities: No evidence of previa. DIMENSIONS: Biparietal Diameter: 9.5 cm: 38 weeks and 5 days: 97 percentile/ Head Circumference: 35.1 cm: 40 weeks and 6 days: 97 percentile/ Abdominal Circumference: 37.6 cm: 41 weeks and 4 days: 9 9 percentile/ Femur Length: 7 cm: 35 weeks and 6 days: 27 percentile/ ESTIMATED WEIGHT: 3934 g plus/-590 g ESTIMATED WEIGHT PERCENTILE (24+ weeks): 99 ESTIMATED GESTATIONAL AGE: Baseline: 36 weeks and 4 days By Ultrasound: 39 weeks and 3 days ESTIMATED DATE OF DELIVERY: Baseline: June 14, 2025 By Ultrasound: May 25, 2025 BIOPHYSICAL ASSESSMENT: Amniotic Fluid Volume: 7.7 cm Amniotic Fluid Index: 21 (8-24 cm normal range) Cardiac Motion: 134 beats per minute (average) Trunk and Limb Motion: Present. MATERNAL ANATOMY: Adnexa: Neither maternal ovary is successfully identified. US/OB Limited With Biometrics IMPRESSION: Single live intrauterine gestation with a mean gestational age of 39 weeks and 3 days. Reading Location: [id number]
--- OUTSIDE RECORDS SUMMARY | 2025-05-21 17:39 | XMS RPT_ITS | CCD ---
Author Organization [facility]ini[facility] Care Team Providers Care Clay Washer Name Role Phone Dr. Ariadne Rivers Primary Care Provider Dr. Ariadne Rivers Referring Provider Dr. Dulce Villar Attending Provider Dr. Ariadne Rivers Primary Care Provider Tita, Dr. Ariadne Rowland Referring Provider Dr. Dulce Villar Attending Provider MD Danitza [facility] Primary Care Provider Unav rosa elena Bosch MD [facility] Referring Provider Unavail Dr. Tang Diaz Attending Provider Danitza CHAUHAN, Dr. Ramsey Primary Care Provider Dr. Dulce Villar MD Attending Provider [phone] Dr. Dulce Villar MD Referring Provider [phone] Dr. Braulio Bosch MD Referring Provider [phone] Stacy Barron RN Attending Provider Unavaillilian Bosch MD, Dr. Ramsey Primary Care Provider Dr. Dulce Villar MD Attending Provider Dr. Dulce Villar MD Referring Provider [phone] Dr. Braulio Bosch MD Primary Care Provider Dr. Braulio Bosch MD Referring Provider [phone] Dr. Dulce Villar MD Attending Provider Dr. Ashlyn Lagos DO Attending Provider Rohan ORDOÑEZ, Mary Attending Provider [phone] PRIMARY CARE, Primary Care Unavailable DULCE VILLAR Referring UnavailMARTIN Villalpando Attending Unavailable NO PRIMARY CARE, Primary Care Unavailable DULCE VILLAR Referring UnavailJER Hall Attending Unavailable Danitza CHAUHAN, Dr. Ramsey Primary Care Provider Danitza CHAUHAN, Dr. Ramsey Primary Care Provider Danitza CHAUHAN, Dr. Ramsey Referring Provider Olena CHAUHAN, Dr. Cardona Attending Provider Olena CHAUHAN, Dr. Cardona Referring Provider [phone] Yadira COUNTER ROLLER-CBertha Attending Provider [phone] Danitza CHAUHAN, Dr. Ramsey [facility] Danitza CHAUHAN, Dr. Ramsey Referring Provider [phone] Dr. Ashlyn Lagos DO Attending Physician Rohan ORDOÑEZ, Mary Attending Physician [phone] Olena CHAUHAN, Dr. Cardona Attending Physician Yadira COUNTER ROLLER-CBertha Attending Physician [phone] Dr. Dulce Villar MD Referring Provider [phone] Yadira COUNTER ROLLER-CBertha Referring Provider [phone] Mary Madrigal CNM Referring Provider [phone] Mary Madrigal CNM Nurse Practitioner [phone] Dr. Alejandro Gonzalez MD Emergency Department Physici an Danitza CHAUHAN, Dr. Ramsey Primary Care Physicia n Dr. Braulio Bosch MD Referring Provider Dr. Alejandro Gonzalez MD Attending Physician Dr. Ashlyn Lagos DO Attending Physician Dr. Ashlyn Lagos DO Referring Provider Dr. Ashlyn Lagos DO Nurse Practitioner Dulce Villar Attending Unavailable Ranney, Christopher Primary Care Unavailable Ducle Villar Referring Unavailable Ranney, Christopher Referring Unavailable Ranney, Christopher Primary Care Unavailable Mary Madrigal Attending Unavailable MarcanthDulce stahl Attending Unavailable Ranney, Christopher Referring Unavailable Ranney, Christopher Primary Care Unavailable Dulce Villar Attending Unavailable Ranney, Christopher Primary Care Unavailable Dulce Villar Referring Unavailable Ranney OLS, Christopher Primary Care Unavaila ble Stacy Barron Attending Unavailable Ranney, Christopher Primary Care Unavailable Mary Madrigal Referring Unavailable Mary Madrigal Consulting Unavailable Mary Madrigal Attending Unavailable Ranney, Christopher Primary Care Unavailable Karlae Ashlyn Paredes Consulting Unavailabl e Vande Velde, Ashlyn Attending Unavailabl e Vande Velde, Ashlyn Referring Unavailabl e Ranney, Christopher Referring Unavailable Ranney, Christopher Primary Care Unavailable Mary Madrigal Attending Unavailable Dulce Villar Attending Unavailable Ranney, Christopher Referring Unavailable Ranney, Christopher Primary Care Unavailable Dulce Villar Attending Unavailable Ranney, Christopher Referring Unavailable Ranney, Christopher Primary Care Unavailable Dulce Villar Attending Unavailable Ranney, Christopher Referring Unavailable Ranney, Christopher Primary Care Unavailable Ranney, Christopher Referring Unavailable Ranney, Christopher Primary Care Unavailable Yadira COUNTER ROLLER, Bertha Attending Unavailable MarcanthonyDulce Attending Unavailable Ranney, Christopher Referring Unavailable Ranney, Christopher Primary Care Unavailable Dulce Villar Attending Unavailable Ranney, Christopher Referring Unavailable Ranney, Christopher Primary Care Unavailable Ranney, Christopher Referring Unavailable Ranney, Christopher Primary Care Unavailable Vande Lena, Ashlyn Attending Unavailabl e Ranney, Christopher Primary Care Unavailable Stacy Barron Attending Unavailable Ranney, Christopher Primary Care Unavailable Dulce Villar Attending Unavailable Dulce Villar Referring Unavailable Dulce Villar Attending Unavailable Ranney, Christopher Primary Care Unavailable Dulce Villar Attending Unavailable Ranney, Christopher Primary Care Unavailable Dulce Villar Referring Unavailable Ranney, Christopher Primary Care Unavailable Yadira COUNTER ROLLER, Bertha Attending Unavailable Yadira COUNTER ROLLER, Bertha Referring Unavailable [facility] Referring Unavailable [facility] Primary Care Unavailable Dulce Villar Attending Unavailable [facility] Primary Care Unavailable Alejandro Gonzalez Attending Unavailable [facility] Unavailable Dulce Villar Attending Unavailable Dulce Villar Referring Unavailable [facility] Primary Care Unavailable Ashlyn Lagos Attending Unavailabl e Ashlyn Lagos Referring Unavailabl e [facility] Unavailable Mary Madrigal Attending Unavailable Mary Madrigal Referring Unavailable [facility] Primary Care Unavailable Dulce Villar Attending Unavailable Ranney [facility], [place] Primary Care Unavaila ble Ranney OLS, [facility] Referring Unavaila ble Dulce Villar Attending Unavailable [facility] Unavailable [place], [place] Referring Unavailable Dulce Villar Attending Unavailable [facility], [place] Referring Unavailable [facility] Unavailable Dulce Villar Attending Unavailable Dulce Villar Attending Unavailable [facility] Primary Care Unavailable Dulce Villar Attending Unavailable [facility] Primary Care Unavailable Dulce Villar Referring Unavailable Allergies Allergy Classification Reported Allergen(s) Allergy Type Date of Onset Reaction(s) Facility (20 sources) Amoxicillin Drug Allergy 1 [facility] (20 sources) Naproxen Drug Allergy 1 [facility] (20 sources) Sulfamethoxazole Drug Allergy 1 [facility] (20 sources) Trimethoprim Drug Allergy 1 [facility] (15 sources) natural latex rubber Allergy to substance [address] [place] [address] Comment on above: condoms- vaginal, sw elling Burning (1 source) Amoxicillin Drug Allergy 5 [facility] (1 source) Naproxen Drug Allergy 5 [facility] (1 source) natural latex rubber Drug allergy (disorder) 5 [facility] (1 source) Sulfamethoxazole Drug Allergy 5 [facility] (1 source) Trimethoprim Drug Allergy 5 [facility] Medications Current Medications Medication Drug Class(es) Dates Sig (Normalized) Sig (Original) FLUoxetine 40 mg oral capsule (20 sources) Serotonin Reuptake Inhibitor Start: 02-26-2025 take 1 capsule by mouth once daily Fluoxetine 40 mg capsule Active 40 mg PO DAILY 30 February 26, 2025 4:11pm 24 weeks gestation of Complies with drug therapy Start: 07-03-2024 End: 02-26-2025 take 1 capsule by mouth once daily Fluoxetine 20 mg capsule Discontinued 20 mg PO DAILY 30 July 03, 2024 5:24pm February 26, 2025 4:11pm [...] every six hours as needed for anxiety Hydroxyzine Hcl 25 mg tablet Active 25 mg PO THREE TIMES A DAY as needed for anxiety 120 February 18, 2025 10:47am 1-2 po q 6 hours PRN Complies with drug therapy Mv-Mins 59-Tqwg-Xvwuu No.1-Dha (Pnv-Garvin) 28-1-300 mg capsule (15 sources) Start: 10-22-2024 Mv-Mins 29-Ctuk-Bocec No.1-Dha (Pnv-Garvin) 28-1-300 mg capsule Active 1 NMA PO DAILY October 22, 2024 12:00am Complies with drug therapy Start: 10-22-2024 Start: 10-22-2024 Mv-Mins 71-Iro n-Folic No.1-Dha (Pnv-Garvin) 28-1-300 mg capsule Active NMA PO October 22, 2024 12:00am [place] (Nk) (4 sources) Start: 05-17-2022 [place] (Nk) A ctive May 17, 2022 1:00am Start: 05-17-2022 [place] (Nk) A ctive May 17, 2022 12:00am [...] 400 mg PO TWICE A DAY 60 12 February 13, 2018 12:00am March 19, 2018 [...] hydrochloride 10 mg delayed release oral tablet (15 sources) Start: 07-03-2024 End: 09-01-2024 Doxylamine-Pyridox ine (Vit B6) (Diclegis) 10-10 mg tablet,delayed release (DR/EC) Discontinued 1 {tbl} PO TWICE A DAY 60 July 03, 2024 1:00am September 01, 2024 2:41pm fosfomycin 3000 mg powder for oral solution (12 sources) Start: 12-03-2024 End: 02-26-2025 take 3 [...] hours Ibuprofen Discontinued 800 MG PO Q8H 30 January 14, 2021 12:00am March 02, 2021 8:50am Start: 06-13-2019 End: 07-21-2019 take 1 tablet by mouth every six hours as needed for pain Ibuprofen 600 MG tablet Discontinued 600 mg PO EVERY 6 HOURS NEEDED as needed for Pain 30 June 13, 2019 1:00am July 21, 2019 1:47pm nitrofurantoin, macrocrystals 25 mg / nitrofurantoin, monohydrate 75 mg oral capsule (15 sources) Nitrofuran Antibacterial Start: 07-06-2024 End: 07-13-2024 take 1 capsule by mouth twice daily at mealtime Nitrofurantoin Monohyd/M-Cryst (Macrobid) 100 mg capsule Discontinued 100 mg PO TWICE A DAY 14 7 0 July 06, 2024 1:00am July 12, 2024 1:00am July 13, 2024 1:11am must administer with a meal/food nystatin [id number] unt/ml oral suspension (15 sources) Polyene Antifungal Start: 07-03-2024 End: 09-01-2024 take [id number] [IU] by mouth four times daily Nystatin 100,000 unit/mL suspension Discontinued 4 mL PO ONCE 60 July 03, 2024 1:00am September 01, 2024 2:41pm 400,000 to 600,000 units 4 times daily; swish in the mouth and retain for as long as possible (several minutes) before swallowing. Duration is for 7 to 14 days Pnv #70-Nmgr-Ecpfu Acid-Omega3 30 mg iron-10 mg iron-1 mg capsule (8 sources) Start: 11-18-2018 End: 03-02-2020 Pnv #70-Achn-Uwkma Acid-Omega3 30 mg iron-10 mg iron-1 mg capsule Discontinued 1 NMA PO DAILY 0 November 18, 2018 12:00am March 02, 2020 8:42am Start: 11-18-2018 End: 03-02-2020 Pnv #10-Teul-Uftzo Acid-Omeg a3 30 mg iron-10 mg iron-1 mg capsule Discontinued 1 NMA PO DAILY November 18, 2018 12:00am March 02, 2020 8:42am Pnv #43-Veck-Ckexm Acid-Dha 35 mg iron-5 mg iron-1 mg capsule (8 sources) Start: 07-26-2017 End: 05-05-2018 Pnv #11-Qcmj-Eedtl Acid-Dha 35 mg iron-5 mg iron-1 mg capsule Discontinued 1 NMA PO daily July 26, 2017 1:00am May 05, 2018 10:36am Start: 07-26-2017 End: 05-05-2018 Pnv #72-Rktx-Wgmpq Acid-Dha 35 mg iron-5 mg iron-1 mg capsule Discontinued 1 NMA PO daily July 26, 2017 1:00am May 05, 2018 10:36am Pnv 70-Lefy-Nhjnl Xugn-Enqfv-2 30 mg iron-10 mg iron-1 mg capsule (7 sources) Start: 11-18-2018 End: 03-02-2020 Pnv 09-Pujv-Fgzme Czon-Vuimu-0 30 mg iron-10 mg iron-1 mg capsule Discontinued 1 NMA PO DAILY 0 November 18, 2018 12:00am March 02, 2020 8:42am Pnv No.09-Rrnl-Ikmfa Acid-Dha 35 mg iron-5 mg iron-1 mg capsule (7 sources) Start: 07-26-2017 End: 05-05-2018 Pnv No.87-Pytc-Qunzl Acid-Dha 35 mg iron-5 mg iron-1 mg [...] 1 tablet by mouth once at bedtime Prenat.Vits,Carson,Kjk-Oyvx-Xvjlq Discontin ued 1 TABLET PO AT BEDTIME March 07, 2020 12:00am May 03, 2022 8:19am Prenat.Vits,Carson,Kuj-Gdnv-Vou ic tablet (15 sources) Start: 03-07-2020 End: 05-03-2022 Prenat.Vits,Carson,Fur-Xcdl-Nlz ic tablet Discontinued 1 {tbl} PO AT BEDTIME March 07, 2020 12:00am May 03, 2022 8:19am Check with primary doctor Start: 03-07-2020 End: 05-03-2022 Prenat.Vits,Carson,Nzy-Xkvv-Kig ic tablet Discontinued 1 {tbl} PO AT [...] 2020 8:42am prochlorperazine 10 mg oral tablet (15 sources) Phenothiazine Start: 11-06-2024 End: 04-05-2025 take 1 tablet by mouth every eight hours as needed for nausea and vomiting Prochlorperazine Maleate (Compazine) 10 mg tablet Discontinued 10 mg PO Q8H as needed for nausea and vomiting 90 3 November 06, 2024 12:00am April 05, 2025 10:07am promethazine hydrochloride 25 mg oral tablet (11 sources) Phenothiazine Start: 01-01-2025 End: 04-05-2025 take [...] depressive disorder; Translations: [Anxiety disorder, unspecified] Onset: 05-03-2025 09-03-2024 Chronic Comment on above: see counselor; jada taylor Bacterial infection; unspecified site (2 sources) Streptococcus, group B, as the cause of diseases classified elsewhere; Translations: [Streptococcus, group B, as the cause of diseases classified elsewhere] Onset: 05-03-2025 Episodic Blindness and vision defects (13 sources) Blurring of visual image; Translations: [Other visual disturbances] Onset: 04-26-2025 04-05-2025 Episodic Comment on above: normal BP and pre e labs. Chronic obstructive pulmonary disease and bronchiectasis (19 sources) Bronchitis; Translations: [Bronchitis, not specified as acute or chronic] 06-25-2022 Episodic Coagulation and hemorrhagic disorders (1 source) Thrombocytopenia, unspecified; Translations: [Thrombocytopenia, unspecified] Onset: 05-07-2025 Chronic Conditions associated with dizziness or vertigo (20 sources) Dizziness; Translations: [Dizziness and giddiness] 08-02-2020 Episodic Comment on above: Normal cardiac work up. Follow up scheduled in 6 months E Codes: Adverse effects of medical drugs (15 sources) Anesthetics adverse reaction; Translations: [Adverse effect of unspecified anesthetic, initial encounter] 09-03-2024 Episodic Comment on above: Hypotension with epi dural 2nd Esophageal disorders (15 sources) Gastroesophageal reflux disease; Translations: [Gastro-esophageal reflux [...] termination of ] 09-01-2024 Episodic Menstrual disorders (16 sources) Amenorrhea; Translations: [Amenorrhea, unspecified] 04-26-2023 Chronic Comment on above: HCGx1 Miscellaneous mental health disorders (18 sources) Psychologic conversion disorder; Translations: [Dissociative and conversion disorder, unspecified] 07-14-2022 Chronic Mood disorders (2 sources) Major depressive disorder, single episode, unspecified; Translations: [Major depressive disorder, single episode, unspecified] Onset: 05-03-2025 Chronic Nonspecific chest pain (7 sources) Chest pain; Translations: [Chest pain, unspecified] [...] above: PRR TIFFANY 03/15/18 Finesse; comanage with paver layer elects NIPT with Gen tatyana Discussed [...] Comment on above: , TIFFANY 06/14/25, P C Tevin Anderson Ruby, Partner Chintan PRR , TIFFANY 5, girl Teresa PC Tevin Anderson Ruby, Partner Chintan Other complications of (20 sources) Urinary tract infection in ; Translations: [Unspecified infection of urinary tract in , unspecified trimester] 09-03-2024 Episodic Comment on above: Rpt urine culture ne xt visit PCN in labor Other complications of (20 sources) H/O: depression; Translations: [History of depression, currently ] 10-22-2024 Episodic Other complications of (4 sources) Genital herpes simplex in mother complicating ; Translations: [Other infections with a predominantly sexual mode of transmission complicating , unspecified trimester] 05-05-2018 Episodic Comment on above: acyclovir Last outbreak ( er 2023) Other complications of (1 source) Benign gestational thrombocytopenia; Translations: [Other diseases of the blood and blood-forming organs and certain disorders involving the immune mechanism complicating , unspecified trimester] 05-03-2025 Episodic Comment on above: 147 redraw in Novemb er Other complications of (1 source) Other diseases of the blood and blood-forming organs and certain disorders involving the immune mechanism complicating , unspecified trimester; Translations: [Other diseases of the blood and blood-forming organs and certain disorders involving the immune mechanism complicating , unspecified trimester] Onset: 05-07-2025 Episodic Other complications of (2 sources) Unspecified infection of urinary tract in , third trimester; Translations: [Unspecified infection of urinary tract in , third trimester] Onset: 05-03-2025 Episodic Other complications of (2 sources) Supervision of high risk , unspecified, third trimester; Translations: [Supervision of high risk , unspecified, third trimester] Onset: 05-03-2025 Episodic Other complications of (2 sources) Supervision of high risk , unspecified, unspecified trimester; Translations: [Supervision of high risk , unspecified, unspecified trimester] Onset: 11-06-2024 Episodic Other lower respiratory disease (20 sources) [...] neoplasm of ovary] Episodic Residual codes; unclassified (15 sources) H/O: Disorder; Translations: [Personal history of other complications of , childbirth and the puerperium] 09-03-2024 Episodic Comment on above: repeat growth US at 36 weeks. Residual codes; unclassified (20 sources) Family history of cleft palate with cleft lip; Translations: [Family history of other congenital malformations, deformations and chromosomal abnormalities] 10-22-2024 Episodic Comment on above: Brother Residual codes; unclassified (2 sources) Personal history of other complications of , childbirth and the puerperium; Translations: [Personal history of other complications of , childbirth and the puerperium] Onset: 04-08-2025 Episodic Residual codes; unclassified (2 sources) Family history of other congenital malformations, deformations and chromosomal abnormalities; Translations: [Family history of other congenital malformations, deformations and chromosomal abnormalities] Onset: 05-03-2025 Episodic Residual codes; unclassified (1 source) 34 weeks gestation of ; Translations: [34 weeks gestation of ] Onset: 05-07-2025 Episodic Residual codes; unclassified (2 sources) 32 weeks gestation of ; Translations: [32 weeks gestation of ] Onset: 05-03-2025 Episodic Residual codes; unclassified (1 source) 30 weeks gestation of ; Translations: [30 weeks gestation of ] Onset: 04-08-2025 Episodic Residual codes; unclassified (1 source) 28 weeks gestation of ; Translations: [28 weeks gestation of ] Onset: 04-26-2025 Episodic Screening and history of mental health and substance abuse codes (20 sources) H/O: anxiety state; Translations: [Personal history of other mental and behavioral disorders] Onset: 05-03-2025 07-14-2022 Episodic Substance-related disorders (20 sources) History [...] Translations: [Cannabis use, unspecified, in remission] Onset: 05-03-2025 Unclassified (2 sources) Other specified diseases and conditions complicating ; Translations: [Other specified diseases and conditions complicating ] Onset: 05-03-2025 Viral infection (6 sources) Genital herpes simplex; Translations: [Herpesviral infection of urogenital system, unspecified] 03-02-2021 Chronic Viral infection (19 sources) Viral disease; Translations: [Viral infection, unspecified] 06-25-2022 Episodic Past or Other Problems Problem Classification Problem Date Documented Date Episodic/Chronic Other complications of (1 source) Unspecified infection of urinary tract in , unspecified trimester; Translations: [Unspecified infection of urinary tract in , unspecified trimester] Onset: 01-29-2025 Episodic Other and delivery including normal (20 sources) Vaginal delivery; Translations: [Encounter for full-term uncomplicated delivery] Onset: 07-31-2024 05-03-2022 Episodic Comment on above: , TIFFANY 02/09/25, PC: Tevin Anderson & Isamar, BF/FOB: Chintan (his first) IAL SM Girl 40 Residual codes; unclassified (1 source) 20 weeks gestation of ; Translations: [20 weeks gestation of ] Onset: 01-29-2025 Episodic Results Test Name Value Interpretation Reference Range Facility Director Information Office Visit Reporton 05-07-2025 Director Information Office Visit Report [facility] [address] [place] [address], [address] [place] [address] OFFICE VISIT Date of Service: 05/07/25 MR#: [id number] Acct: [id number] Name: SHIRA ARBOLEDA Rep #: [id number] : 1990 Provider: Dr. 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 Is patient in pain?: No Allergies Latex, Natural Rubber Allergy (Intermediate, Verified 05/07/25 14:00) Swelling amoxicillin Allergy (Verified 05/07/25 14:00) Hives naproxen (From Aleve) Allergy (Verified 05/07/25 14:00) Hives sulfamethoxazole (From Bactrim) Allergy (Verified 05/07/25 14:00) Hives trimethoprim (From Bactrim) Allergy (Verified 05/07/25 14:00) Hives Medications ???Medication ???Instructions ???Recorded ???Confirmed ???Type multivit-min no.71-iron fum 28 1 cap PO DAILY 10/22/24 05/07/25 H istory mg-folate no.1 1 mg-dha 300 mg capsule (PNV-Garvin) hydroxyzine HCl 25 mg tablet 25 mg PO TID PRN anxiety #120 tabs 02/18/25 05/07/25 Rx fluoxetine 40 mg capsule 40 mg [...] current occupational status: employed 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 Date Name GA/Weeks Outcome Route Bth Weight Gen Labor Lgth Anesthesia Del Locatn Provider FOB 03/21/18 Justin 40 live - full term 9lbs 7oz Male epidural [facility] S NGOZI Kilpatrick 06/12/19 Thakur-Goes by Tevin 40 live - full term 8lbs 8oz Male epidural [facility] Dr. Olena Kilpatrick 01/13/21 Isamar 40 live - full term 7lbs 6oz Female epidural [facility] Hafsa Kilpatrick 07/10/24 elective Delivery Date: 03/21/18 Last Updated by: Elvira Travis Prolonged labor, Oligo Delivery Date: 06/12/19 Last Updated by: Elvira Travis hypotension during labor HPI 34 WK OB Details: SHIRA ARBOLEDA is a 34 year old who presents for routine OB visit. OB Visit TIFFANY Calculator Estimated Delivery Date Method Current WG Current Estimate 06/14/25 LMP (Certain) 34w 4d Other Estimates 06/13/25 Ultrasound #1 34w 5d Expected Delivery Route/Plan with SM if [...] placed. Relevant counseling for the gestational age (more content not included)... Normal [facility] AST(SGOT)on 05-02-2025 AST [Catalytic activity/Vol] 20 U/L Normal <=31 [facility] Comment on above: Performed By: #### L 501.0900, L501.4405, L501.4100, L501.1400, L100.0500, L501.1105 #### [facility] [address] [facility]. [place], [place], [id number] Alanine Aminotransferas (SGP T)on 05-02-2025 ALT [Catalytic activity/Vol] 14 U/L Normal <=34 [facility] Comment on above: Performed By: #### L 501.0900, L501.4405, L501.4100, L501.1400, L100.0500, L501.1105 #### [facility] [address] [place], [address] CBC-Complete Blood Cnt No Di ffon 05-02-2025 Erythrocyte distribution width (RBC) [Ratio] 12.6 % Normal 11.6-14.6 [facility] Comment on above: Performed By: #### L 501.0900, L501.4405, L501.4100, L501.1400, L100.0500, L501.1105 #### [facility] [address] [place], [address] Hematocrit (Bld) [Volume fraction] 32.1 % Low 37-47 [facility] Comment on above: Performed By: #### L 501.0900, L501.4405, L501.4100, L501.1400, L100.0500, L501.1105 #### [facility] [address] [place], [address] Hemoglobin (Bld) [Mass/Vol] 11.1 g/dL Low 12.0-15.0 [facility] Comment on above: Performed By: #### L 501.0900, L501.4405, L501.4100, L501.1400, L100.0500, L501.1105 #### [facility] [address] [place], [address] MCH (RBC) [Entitic mass] 29.8 pg Normal 27.0-32.0 [facility] Comment on above: Performed By: #### L 501.0900, L501.4405, L501.4100, L501.1400, L100.0500, L501.1105 #### [facility] [address] [place], [address] MCHC (RBC) [Mass/Vol] 34.6 g/dL Normal 32-36 [facility] Comment on above: Performed By: #### L 501.0900, L501.4405, L501.4100, L501.1400, L100.0500, L501.1105 #### [facility] [address] [place], [address] MCV (RBC) [Entitic vol] 86.3 fL Normal 81-99 [facility] Comment on above: Performed By: #### L 501.0900, L501.4405, L501.4100, L501.1400, L100.0500, L501.1105 #### [facility] [address] [place], [address] Platelet mean volume (Bld) [Entitic vol] 8.8 fL Normal 6.2-12.0 [facility] Comment on above: Performed By: #### L 501.0900, L501.4405, L501.4100, L501.1400, L100.0500, L501.1105 #### [facility] [address] [place], [address] Platelets (Bld) [#/Vol] 147 10*3/uL Low 150-450 [facility] Comment on above: Performed By: #### L 501.0900, L501.4405, L501.4100, L501.1400, L100.0500, L501.1105 #### [facility] [address] [place], [address] RBC (Bld) [#/Vol] 3.72 10*6/uL Low 4.2-5.4 [facility] Comment on above: Performed By: #### L 501.0900, L501.4405, L501.4100, L501.1400, L100.0500, L501.1105 #### [facility] [address] [place], [address] RDW SD 39.6 fl Normal 35.1-43.9 [facility] Comment on above: Performed By: #### L 501.0900, L501.4405, L501.4100, L501.1400, L100.0500, L501.1105 #### [facility] [address] [place], [address] WBC (Bld) [#/Vol] 10.4 10*3/uL Normal 4.4-11.0 [facility] Comment on above: Performed By: #### L 501.0900, L501.4405, L501.4100, L501.1400, L100.0500, L501.1105 #### [facility] [address] [place], [address] Erythrocyte distribution wid th ratioOrdered By: Ashlyn Paredes on 05-02-2025 Erythrocyte distribution width (RBC) [Ratio] 12.6 % 11.6-14.6 [facility] Erythrocyte distribution wid th standard deviationOrdered By: Ashlyn Paredes on 05-02-2025 Erythrocyte distribution width (RBC) [Ratio] 39.6 fl 35.1-43.9 [facility] Glomerular filtration rate ( GFR) estimation/1.73 sq m using serum, plasma, or whole bOrdered By: Ashlyn Paredes on 05-02-2025 GFR/1.73 sq M.predicted among non-blacks MDRD (S/P/Bld) [Vol rate/Area] 124 mL/min/{1.73_m2} >60 [facility] Comment on above: mL/min/1.73m2 CKD-EP I Creatinine Equation (2020) Hematocrit Auto (Bld) [Volum e fraction]Ordered By: Ashlyn Paredes on 05-02-2025 Hematocrit (Bld) [Volume fraction] 32.1 % Low 37-47 [facility] Hemoglobin measurementOrdere d By: Ashlyn Paredes on 05-02-2025 Hemoglobin (Bld) [Mass/Vol] 11.1 g/dL Low 12.0-15.0 [facility] - Chemistry and C hemistry - challengeOrdered By: Ashlyn Paredes on 05-02-2025 AST [Catalytic activity/Vol] 20 U/L <32 [facility] MCV (mean corpuscular volume ) determinationOrdered By: Ashlyn Paredes on 05-02-2025 MCV (RBC) [Entitic vol] 86.3 fL 81-99 [facility] Mean corpuscular hemoglobin (MCH) determinationOrdered By: Ashlyn Paredes on 05-02-2025 MCH (RBC) [Entitic mass] 29.8 pg 27.0-32.0 [facility] Mean corpuscular hemoglobin concentration (MCHC) determinationOrdered By: Ashlyn Paredes on 05-02-2025 MCHC (RBC) [Mass/Vol] 34.6 g/dL 32-36 [facility] Mean platelet volume determi nationOrdered By: Ashlyn Paredes on 05-02-2025 Platelet mean volume (Bld) [Entitic vol] 8.8 fL 6.2-12.0 [facility] OB Triage Physician Noteon 1 OB Triage Physician Note [facility] Medical Records Department [address] [place] [address] OB Triage Physician Note 05/02/25 0003 MR#: [id number] Acct: [id number] Name: SHIRA ARBOLEDA Rep #: [id number] : 1990 34 From: Ashlyn Lagos DO PCP: Dr. Braulio Bosch MD Status:DEP CLI Y Location: [facility] HPI - General General Date of Admission: 05/01/25 HPI Narrative SHIRA ARBOLEDA, is a 34 y/o @ 33 weeks 5 days who presents to D with some visual changes and increase swelling. She denies headache or epigastric pain but wanted to be sure that her symptoms were not pre-e/ Maternal Data Information TIFFANY Calculator Estimated Delivery Date Method Current WG Current Estimate 06/14/25 LMP (Certain) 33w 6d Other Estimates 06/13/25 Ultrasound #1 34w 0d PFSH PFSH Medical History Anxiety and depression Elective Dizziness Shortness of breath Hemorrhoid GERD (gastroesophageal reflux disease) Genital herpes Home Medications ???Medication ???Instructions ???Recorded ???Last Taken ???Type multivit-min no.71-iron fum 28 1 cap PO DAILY 10/22/24 04/05/25 H istory mg-folate no.1 1 mg-dha 300 mg capsule (PNV-Garvin) hydroxyzine HCl 25 mg tablet 25 mg PO TID PRN anxiety #120 tabs 02/18/25 Unknown Rx fluoxetine 40 mg capsule 40 mg PO DAILY #30 caps 02/26/25 U nknown Rx Allergy/AdvReac Type Severity Reaction Status Date / Time Latex, Natural Rubber Allergy Intermediate Swelling Verified 04/23/25 15:32 amoxicillin Allergy Hives Verified 04/23/25 15:32 naproxen (From Aleve) Allergy Hives Verified 04/23/25 15:32 sulfamethoxazole (From Allergy Hives Verified 04/23/25 15:32 Bactrim) trimethoprim (From Bactrim) Allergy Hives Verified 04/23/25 15:32 Family History Grandfather Diabetes Heart disease Grandmother No problems noted. 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 Date Name GA/Weeks Outcome Route Bth Weight Gen Labor Lgth Anesthesia Del Locatn Provider FOSergio 03/21/18 Justin 40 live - full term 9lbs 7oz Male epidural [facility] Natali Kilpatrick 06/12/19 [place] by Tevin 40 live - full term 8lbs 8oz Male epidural [facility] Dr. Olena Kilpatrick 01/13/21 Isamar 40 live - full term 7lbs 6oz Female epidural [facility] Hafsa vinnie Kilpatrick 07/10/24 elective Delivery Date: 03/21/18 Last Updated by: Elvira Travis Prolonged labor, Oligo Delivery Date: 06/12/19 Last Updated by: Elvira Travis hypotension during labor Visit Details Expected Delivery Route/Plan with SM if available Labor Preferences- CB/BF classes: no labor support person: Chintan labor intervention preferences: [] pain management options preferred: epidural cut cord/dad catch: yes : yes PP control planned: discussed discussed possible routes of delivery and associated risks: [] special requests: [] Plans Covid status: [] Flu vaccine: declines Tdap vaccine: declines Rhogam: NA LARC form signed: yes Problem list reviewed and updated with the most current plan of care details and appropriate orders placed. Relevant counseling for the gestational age provided. Continue routine care and follow up unless otherwise noted in visit notes/problem list details (more content not included)... Normal [facility] Platelet countOrdered By: Deion Paredes on 05-02-2025 Platelets (Bld) [#/Vol] 147 10*3/uL Low 150-450 [facility] Protein+Creatinine Ratio,Uri neon 05-02-2025 PROT:CRE RATIO 158 mg/g CRE Normal 0-200 [facility] Comment on above: Performed By: #### L 501.0900, L501.4405, L501.4100, L501.1400, L100.0500, L501.1105 #### [facility] [address] [place], [address] PROTEIN,UR.RAN. < 6.0 Normal 0.0-12.0 [facility] Comment on above: Performed By: #### L 501.0900, L501.4405, L501.4100, L501.1400, L100.0500, L501.1105 #### [facility] [address] [place], [address] UR CREAT 28.30 mg/dL Normal 28.00-217.00 [facility] Comment on above: Performed By: #### L 501.0900, L501.4405, L501.4100, L501.1400, L100.0500, L501.1105 #### [facility] [address] [place], [place], [id number] (255) RBC Auto (Bld) [#/Vol]Ordere d By: Ashlyn Lena on 05-02-2025 RBC (Bld) [#/Vol] 3.72 10*6/uL Low 4.2-5.4 [facility] Random urine creatinine chaitanya urement (mass/volume)Ordered By: Ashlyn Paredes on 05-02-2025 Creatinine Unsp time (U) [Mass/Vol] 28.30 mg/dL 28.00-217.00 [facility] Serum Creatinine AND GFRon 1 Creatinine [Mass/Vol] 0.55 mg/dL Low 0.70-1.20 [facility] Comment on above: Performed By: #### L 501.0900, L501.4405, L501.4100, L501.1400, L100.0500, L501.1105 #### [facility] [address] [place], [address] ECRCL 181.31 ml/min Normal 50-250 [facility] Comment on above: Performed By: #### L 501.0900, L501.4405, L501.4100, L501.1400, L100.0500, L501.1105 #### [facility] [address] [place], [place], [id number] (374) GFR/1.73 sq M.predicted among non-blacks MDRD (S/P/Bld) [Vol rate/Area] 124 mL/min/{1.73_m2} Normal >60 [facility] Comment on above: Result Comment: mL/m in/1.73m2 CKD-EPI Creatinine Equation (2020) Performed By: #### L 501.0900, L501.4405, L501.4100, L501.1400, L100.0500, L501.1105 #### [facility] [address] [place], [place], [address] Serum creatinine measurement (mass/volume)Ordered By: Ashlyn Paredes on 05-02-2025 Creatinine [Mass/Vol] 0.55 mg/dL Low 0.70-1.20 [facility] Serum or plasma alanine dey otransferase (ALT) measurementOrdered By: Ashlyn Paredes on 05-02-2025 ALT [Catalytic activity/Vol] 14 U/L <35 [facility] Serum or plasma uric acid me asurement (mass/volume)Ordered By: Ashlyn Paredes on 05-02-2025 Urate [Mass/Vol] 4.7 mg/dL 2.6-6.0 [facility] Comment on above: The drugs N-Acetylcy steine and Metamizole may falsely depress this assay. Uric Acidon 05-02-2025 URIC 4.7 mg/dL Normal 2.6-6.0 [facility] Comment on above: Result Comment: The drugs N-Acetylcysteine and Metamizole may falsely depress this assay. Performed By: #### L 501.0900, L501.4405, L501.4100, L501.1400, L100.0500, L501.1105 #### [facility] [address] [place], [address] Urine protein measurement (m ass/volume)Ordered By: Ashlyn Paredes on 05-02-2025 Protein (U) [Mass/Vol] mg/dL 0.0-12.0 [facility] Urine protein/creatinine mas s ratioOrdered By: Ashlyn Paredes on 05-02-2025 Protein/Creatinine (U) [Mass ratio] 158 mg/g CRE 0-200 [facility] White blood cell (WBC) count Ordered By: Ashlyn Paredes on 05-02-2025 WBC (Bld) [#/Vol] 10.4 10*3/uL 4.4-11.0 [facility] - Chemistry and C hemistry - challengeOrdered By: Dulce Villar on 04-23-2025 Glucose Ql (U) Negative [facility] - UrinalysisOrder ed By: Dulce Villar on 04-23-2025 Protein Ql (U) Negative [facility] Director Information Office Visit Reporton 04-23-2025 Director Information Office Visit Report [facility] [address], [address] [place] [address] OFFICE VISIT Date of Service: 04/23/25 MR#: [id number] Acct: [id number] Name: SHIRA ARBOLEDA Rep #: [id number] : 1990 Provider: Dr. 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 Date Name GA/Weeks Outcome Route Bth Weight Gen Labor Lgth Anesthesia Del Locatn Provider FOB 03/21/18 Justin 40 live - full term 9lbs 7oz Male epidural [facility] S NGOZI Kilpatrick 06/12/19 [place]-[facility] by Tevin 40 live - full term 8lbs 8oz Male epidural [facility] Dr. Olena Kilpatrick 01/13/21 Isamar 40 live - full term 7lbs 6oz Female epidural [facility] Kilpatrick 07/10/24 elective Delivery Date: 03/21/18 Last [...] placed. Relevan (more content not included)... Normal [facility] Absolute lymphocyte countOrd ered By: Dulce Villar on 04-08-2025 Lymphocytes Auto (Unsp spec) [#/Vol] 2.12 10*3/uL 0.83-4.51 [facility] Absolute neutrophil countOrd ered By: Dulce Villar on 04-08-2025 Neutrophils (Bld) [#/Vol] 5.4 10*3/uL 2.0-7.7 [facility] Anion gap in Serum or Plasma Ordered By: Dulce Villar on 04-08-2025 Anion gap [Moles/Vol] 11 mmol/L 5-15 [facility] Automated lymphocyte count a s percentage of total leukocytesOrdered By: Dulce Villar on 04-08-2025 Lymphocytes/100 WBC Auto (Unsp spec) 25.2 % 19-41 [facility] BUN/creatinine ratioOrdered By: Dulce Villar on 04-08-2025 Urea nitrogen/Creatinine [Mass ratio] 13.6 mg/mg 10-20 [facility] Basophil percentageOrdered B y: Dulce Villar on 04-08-2025 Basophils/100 WBC (Bld) 0.6 % 0-1 [facility] Bilirubin, totalOrdered By: Dulce Villar on 04-08-2025 Bilirubin [Mass/Vol] 0.20 mg/dL 0.00-1.30 [facility] CBC W/Diff, Automatedon Absolute Lymph 2.12 X10 3/uL Normal 0.83-4.51 [facility] Comment on above: Performed By: #### L 501.0900, L501.4405, L501.4100, L501.1400, L100.0500, L501.1105 #### [facility] [address] [place], [address] Absolute Neut 5.4 X10 3/uL Normal 2.0-7.7 [facility] Comment on above: Performed By: #### L 501.0900, L501.4405, L501.4100, L501.1400, L100.0500, L501.1105 #### [facility] [address] [place], [address] Basophils/100 WBC (Bld) 0.6 % Normal 0-1 [facility] Comment on above: Performed By: #### L 501.0900, L501.4405, L501.4100, L501.1400, L100.0500, L501.1105 #### [facility] [address] [place], [address] Eosinophils/100 WBC (Bld) 1.0 % Normal 0-5 [facility] Comment on above: Performed By: #### L 501.0900, L501.4405, L501.4100, L501.1400, L100.0500, L501.1105 #### [facility] [address] [place], [address] Erythrocyte distribution width (RBC) [Ratio] 12.7 % Normal 11.6-14.6 [facility] Comment on above: Performed By: #### L 501.0900, L501.4405, L501.4100, L501.1400, L100.0500, L501.1105 #### [facility] [address] [place], [address] Hematocrit (Bld) [Volume fraction] 34.7 % Low 37-47 [facility] Comment on above: Performed By: #### L 501.0900, L501.4405, L501.4100, L501.1400, L100.0500, L501.1105 #### [facility] [address] [place], [address] Hemoglobin (Bld) [Mass/Vol] 11.6 g/dL Low 12.0-15.0 [facility] Comment on above: Performed By: #### L 501.0900, L501.4405, L501.4100, L501.1400, L100.0500, L501.1105 #### [facility] [address] [place], [address] IG% 1.700 High 0.0-0.9 [facility] Comment on above: Result Comment: IG% - Immature Granulocytes (promyelocytes, myelocytes and metamyelocytes) > 1% indicates that a LEFT SHIFT is Present. Performed By: #### L 501.0900, L501.4405, L501.4100, L501.1400, L100.0500, L501.1105 #### [facility] [address] [place], [address] Lymphocytes/100 WBC (Bld) 25.2 % Normal 19-41 [facility] Comment on above: Performed By: #### L 501.0900, L501.4405, L501.4100, L501.1400, L100.0500, L501.1105 #### [facility] [address] [place], [address] MCH (RBC) [Entitic mass] 29.1 pg Normal 27.0-32.0 [facility] Comment on above: Performed By: #### L 501.0900, L501.4405, L501.4100, L501.1400, L100.0500, L501.1105 #### [facility] [address] [place], [address] MCHC (RBC) [Mass/Vol] 33.4 g/dL Normal 32-36 [facility] Comment on above: Performed By: #### L 501.0900, L501.4405, L501.4100, L501.1400, L100.0500, L501.1105 #### [facility] [address] [place], [address] MCV (RBC) [Entitic vol] 87.2 fL Normal 81-99 [facility] Comment on above: Performed By: #### L 501.0900, L501.4405, L501.4100, L501.1400, L100.0500, L501.1105 #### [facility] [address] [place], [address] Monocytes/100 WBC (Bld) 7.5 % Normal 0-10 [facility] Comment on above: Performed By: #### L 501.0900, L501.4405, L501.4100, L501.1400, L100.0500, L501.1105 #### [facility] [address] [place], [address] Neutrophils/100 WBC (Bld) 64.0 % Normal 47-70 [facility] Comment on above: Performed By: #### L 501.0900, L501.4405, L501.4100, L501.1400, L100.0500, L501.1105 #### [facility] [address] [place], [address] Nucleated RBC (Bld) [#/Vol] 0 10*3/uL Normal 0-5 [facility] Comment on above: Performed By: #### L 501.0900, L501.4405, L501.4100, L501.1400, L100.0500, L501.1105 #### [facility] [address] [place], [address] Platelet mean volume (Bld) [Entitic vol] 9.2 fL Normal 6.2-12.0 [facility] Comment on above: Performed By: #### L 501.0900, L501.4405, L501.4100, L501.1400, L100.0500, L501.1105 #### [facility] [address] [place], [address] Platelets (Bld) [#/Vol] 189 10*3/uL Normal 150-450 [facility] Comment on above: Performed By: #### L 501.0900, L501.4405, L501.4100, L501.1400, L100.0500, L501.1105 #### [facility] [address] [place], [address] RBC (Bld) [#/Vol] 3.98 10*6/uL Low 4.2-5.4 [facility] Comment on above: Performed By: #### L 501.0900, L501.4405, L501.4100, L501.1400, L100.0500, L501.1105 #### [facility] [address] [place], [address] RDW SD 40.1 fl Normal 35.1-43.9 [facility] Comment on above: Performed By: #### L 501.0900, L501.4405, L501.4100, L501.1400, L100.0500, L501.1105 #### [facility] [address] [place], [address] WBC (Bld) [#/Vol] 8.4 10*3/uL Normal 4.4-11.0 [facility] Comment on above: Performed By: #### L 501.0900, L501.4405, L501.4100, L501.1400, L100.0500, L501.1105 #### [facility] [address] [place], [address] Carbon dioxide, total [Moles /volume] in Central venous bloodOrdered By: Dulce Villar on 04-08-2025 CO2 [Moles/Vol] 20.7 mmol/L Low 21.0-32.0 [facility] Chloride assayOrdered By: Paolo Villar on 04-08-2025 Chloride [Moles/Vol] 103 mmol/L 98-108 [facility] Comprehensive Metabolic Prof ilon 04-08-2025 Albumin [Mass/Vol] 3.6 g/dL Normal 3.5-5.0 [facility] Comment on above: Performed By: #### L 501.0900, L501.4405, L501.4100, L501.1400, L100.0500, L501.1105 #### [facility] [address] [place], [address] Albumin/Globulin [Mass ratio] 1.4 {ratio} Normal 0.9-2.4 [facility] Comment on above: Performed By: #### L 501.0900, L501.4405, L501.4100, L501.1400, L100.0500, L501.1105 #### [facility] [address] [place], [address] ALK PHOS 102 U/L Normal 35-104 [facility] Comment on above: Performed By: #### L 501.0900, L501.4405, L501.4100, L501.1400, L100.0500, L501.1105 #### [facility] [address] [place], [address] ALT [Catalytic activity/Vol] 12 U/L Normal <=34 [facility] Comment on above: Performed By: #### L 501.0900, L501.4405, L501.4100, L501.1400, L100.0500, L501.1105 #### [facility] [address] [place], [address] AST [Catalytic activity/Vol] 19 U/L Normal <=31 [facility] Comment on above: Performed By: #### L 501.0900, L501.4405, L501.4100, L501.1400, L100.0500, L501.1105 #### [facility] [address] [place], [address] Bilirubin [Mass/Vol] 0.20 mg/dL Normal 0.00-1.30 [facility] Comment on above: Performed By: #### L 501.0900, L501.4405, L501.4100, L501.1400, L100.0500, L501.1105 #### [facility] [address] [place], [address] BUN/CRE 13.6 RATIO Normal 10-20 [facility] Comment on above: Performed By: #### L 501.0900, L501.4405, L501.4100, L501.1400, L100.0500, L501.1105 #### [facility] [address] [place], [address] Calcium [Mass/Vol] 8.5 mg/dL Normal 7.6-11.0 [facility] Comment on above: Performed By: #### L 501.0900, L501.4405, L501.4100, L501.1400, L100.0500, L501.1105 #### [facility] [address] [place], [address] Chloride [Moles/Vol] 103 mmol/L Normal 98-108 [facility] Comment on above: Performed By: #### L 501.0900, L501.4405, L501.4100, L501.1400, L100.0500, L501.1105 #### [facility] [address] [place], [address] CO2 [Moles/Vol] 20.7 mmol/L Low 21.0-32.0 [facility] Comment on above: Performed By: #### L 501.0900, L501.4405, L501.4100, L501.1400, L100.0500, L501.1105 #### [facility] [address] [place], [address] Creatinine [Mass/Vol] 0.51 mg/dL Low 0.70-1.20 [facility] Comment on above: Performed By: #### L 501.0900, L501.4405, L501.4100, L501.1400, L100.0500, L501.1105 #### [facility] [address] [place], [address] GAP 11 Normal 5-15 [facility] Comment on above: Performed By: #### L 501.0900, L501.4405, L501.4100, L501.1400, L100.0500, L501.1105 #### [facility] [address] [place], [address] GFR/1.73 sq M.predicted among non-blacks MDRD (S/P/Bld) [Vol rate/Area] 127 mL/min/{1.73_m2} Normal >60 [facility] Comment on above: Result Comment: mL/m in/1.73m2 CKD-EPI Creatinine Equation (2020) Performed By: #### L 501.0900, L501.4405, L501.4100, L501.1400, L100.0500, L501.1105 #### [facility] [address] [place], [address] Globulin (S) [Mass/Vol] 2.6 g/dL Normal 2.2-4.2 [facility] Comment on above: Performed By: #### L 501.0900, L501.4405, L501.4100, L501.1400, L100.0500, L501.1105 #### [facility] [address] [place], [address] Glucose [Mass/Vol] 75 mg/dL Normal 70-99 [facility] Comment on above: Performed By: #### L 501.0900, L501.4405, L501.4100, L501.1400, L100.0500, L501.1105 #### [facility] [address] [place], [address] Potassium [Moles/Vol] 4.0 mmol/L Normal 3.3-5.1 [facility] Comment on above: Performed By: #### L 501.0900, L501.4405, L501.4100, L501.1400, L100.0500, L501.1105 #### [facility] [address] [place], [address] Sodium [Moles/Vol] 135 mmol/L Normal 133-145 [facility] Comment on above: Performed By: #### L 501.0900, L501.4405, L501.4100, L501.1400, L100.0500, L501.1105 #### [facility] [address] [place], [address] T PROT 6.2 g/dL Normal 5.9-8.4 [facility] Comment on above: Performed By: #### L 501.0900, L501.4405, L501.4100, L501.1400, L100.0500, L501.1105 #### [facility] [address] [place], [address] Urea nitrogen [Mass/Vol] 7 mg/dL Normal 4-19 [facility] Comment on above: Performed By: #### L 501.0900, L501.4405, L501.4100, L501.1400, L100.0500, L501.1105 #### [facility] [address] [place], [address] Eosinophil percentageOrdered By: Dulce Villar on 04-08-2025 Eosinophils/100 WBC (Bld) 1.0 % 0-5 [facility] Erythrocyte distribution wid th ratioOrdered By: Dulce Villar on 04-08-2025 Erythrocyte distribution width (RBC) [Ratio] 12.7 % 11.6-14.6 [facility] Erythrocyte distribution wid th standard deviationOrdered By: Dulce Villar on 04-08-2025 Erythrocyte distribution width (RBC) [Ratio] 40.1 fl 35.1-43.9 [facility] Glomerular filtration rate ( GFR) estimation/1.73 sq m using serum, plasma, or whole bOrdered By: Dulce Villar on 04-08-2025 GFR/1.73 sq M.predicted among non-blacks MDRD (S/P/Bld) [Vol rate/Area] 127 mL/min/{1.73_m2} >60 [facility] Comment on above: mL/min/1.73m2 CKD-EP I Creatinine Equation (2020) Hematocrit Auto (Bld) [Volum e fraction]Ordered By: Dulce Villar on 04-08-2025 Hematocrit (Bld) [Volume fraction] 34.7 % Low 37-47 [facility] Hemoglobin measurementOrdere d By: Dulce Villar on 04-08-2025 Hemoglobin (Bld) [Mass/Vol] 11.6 g/dL Low 12.0-15.0 [facility] Immature granulocytes/100 WB C Auto (Bld)Ordered By: Dulce Villar on 04-08-2025 Immature granulocytes/100 WBC (Bld) 1.700 % High 0.0-0.9 [facility] Comment on above: IG% - Immature Granu locytes (promyelocytes, myelocytes and metamyelocytes) > 1% indicates that a LEFT SHIFT is Present. Laboratory - Chemistry and C hemistry - challengeOrdered By: Dulce Villar on 04-08-2025 AST [Catalytic activity/Vol] 19 U/L <32 [facility] Glucose Ql (U) Negative [facility] - UrinalysisOrder ed By: Dulce Villar on 04-08-2025 Protein Ql (U) Trace [facility] MCV (mean corpuscular volume ) determinationOrdered By: Dulce Villar on 04-08-2025 MCV (RBC) [Entitic vol] 87.2 fL 81-99 [facility] Mean corpuscular hemoglobin (MCH) determinationOrdered By: Dulce Villar on 04-08-2025 MCH (RBC) [Entitic mass] 29.1 pg 27.0-32.0 [facility] Mean corpuscular hemoglobin concentration (MCHC) determinationOrdered By: Dulce Villar on 04-08-2025 MCHC (RBC) [Mass/Vol] 33.4 g/dL 32-36 [facility] Mean platelet volume determi nationOrdered By: Dulce Villar on 04-08-2025 Platelet mean volume (Bld) [Entitic vol] 9.2 fL 6.2-12.0 [facility] Monocyte percentageOrdered B y: Dulce Villar on 04-08-2025 Monocytes/100 WBC (Bld) 7.5 % 0-10 [facility] Neutrophil percentageOrdered By: Dulce Villar on 04-08-2025 Neutrophils/100 WBC (Bld) 64.0 % 47-70 [facility] Nucleated red blood cell per centageOrdered By: Dulce Villar on 04-08-2025 Nucleated RBC/100 WBC (Bld) [Ratio] 0 % 0-5 [facility] Director Information Office Visit Reporton 04-08-2025 Director Information Office Visit Report [facility] [address], [address] [place] [address] OFFICE VISIT Date of Service: 04/08/25 MR#: [id number] Acct: [id number] Name: SHIRA ARBOLEDA Rep #: [id number] : 1990 Provider: Dr. Dulce sanchez MD Age/Sex: 34/F Location: [facility] [place] Status: Signed with Addenda ADDENDUM by Bertha Harvey on 04/08/25 at 1351 Office Procedure Documentation entered by Bertha Harvey 04/08/25 13:51: Immunizations Boostrix Tdap 2.5 Lf unit-8 mcg-5 Lf/0.5 mL intramuscular syringe Performing Provider: Dulce Villar MD Performing Location: [facility] Administered by: Bertha Harvey on 04/08/25 13:50 Dose Route Admin Location Dispensed Lot Number Expiration Date Package NDC NDC [place] [employer] 0.5 mL IM Right Deltoid 0.5 mL [id number] 03/07/27 50788-683-39 [id number] S [employer] VIS Given Date VIS Provided [...] H Intake Visit Reasons: 30 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: No Is patient in pain?: No [...] mg-folate no.1 1 mg-dha 300 mg capsule (PNV-Garvin) hydroxyzine HCl 25 mg tablet 25 mg [...] current occupational status: employed 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 Date Name GA/Weeks Outcome Route Bth Weight Infant Gen Labor Lgth Anesthesia Del Locatn Provider FOB 03/21/18 Justin 40 live - full term 9lbs 7oz Male epidural [facility] Natali Kilpatrick 06/12/19 Thakur-Goes by Tevin 40 live - full term 8lbs 8oz Male epidural [facility] Dr. Olena Kilpatrick 01/13/21 Isamar 40 live - full term 7lbs 6oz Female epidural [facility] Hafsa Kilpatrick 07/10/24 elective Delivery Date: 03/21/18 Last Updated by: Elvira Travis Prolonged labor, Oligo Delivery Date: 06/12/19 Last Updated by: Elvira Travis hypotension during labor HPI 30 WK OB Details: SHIRA ARBOLEDA is a 34 year old who presents for routine OB visit. OB Visit TIFFANY Calculator (more content not included)... Normal [facility] Platelet countOrdered By: Paolo Villar on 04-08-2025 Platelets (Bld) [#/Vol] 189 10*3/uL 150-450 [facility] Potassium measurement (mass/ volume)Ordered By: Dulce Villar on 04-08-2025 Potassium (Unsp spec) [Mass/Vol] 4.0 mmol/L 3.3-5.1 [facility] Protein+Creatinine Ratio,Uri neon 04-08-2025 PROT:CRE RATIO 96 mg/g CRE Normal 0-200 [facility] Comment on above: Performed By: #### L 501.0900 #### [facility] [address] [place], [address] Protein (U) [Mass/Vol] 11.5 mg/dL Normal 0.0-12.0 [facility] Comment on above: Performed By: #### L 501.0900 #### [facility] [address], [address] UR CREAT 120.00 mg/dL Normal 28.00-217.00 [facility] Comment on above: Performed By: #### L 501.0900 #### [facility] [address] [place], [address] RBC Auto (Bld) [#/Vol]Ordere d By: Dulce Villar on 04-08-2025 RBC (Bld) [#/Vol] 3.98 10*6/uL Low 4.2-5.4 [facility] Random urine creatinine chaitanya urement (mass/volume)Ordered By: Dulce Villar on 04-08-2025 Creatinine Unsp time (U) [Mass/Vol] 120.00 mg/dL 28.00-217.00 [facility] Serum creatinine measurement (mass/volume)Ordered By: Dulce Villar on 04-08-2025 Creatinine [Mass/Vol] 0.51 mg/dL Low 0.70-1.20 [facility] Serum globulin measurementOr dered By: Dulce Villar on 04-08-2025 Globulin (S) [Mass/Vol] 2.6 g/dL 2.2-4.2 [facility] Serum glucose measurement (m ass/volume)Ordered By: Dulce Villar on 04-08-2025 Glucose [Mass/Vol] 75 mg/dL 70-99 [facility] Serum or plasma alanine dey otransferase (ALT) measurementOrdered By: Dulce Villar on 04-08-2025 ALT [Catalytic activity/Vol] 12 U/L <35 [facility] Serum or plasma albumin chaitanya urement (mass/volume)Ordered By: Dulce Villar on 04-08-2025 Albumin [Mass/Vol] 3.6 g/dL 3.5-5.0 [facility] Serum or plasma albumin/glob ulin mass ratioOrdered By: Dulce Villar on 04-08-2025 Albumin/Globulin [Mass ratio] 1.4 {ratio} 0.9-2.4 [facility] Serum or plasma alkaline ulises sphatase measurementOrdered By: Dulce Villar on 04-08-2025 ALP [Catalytic activity/Vol] 102 U/L 35-104 [facility] Serum or plasma calcium chaitanya urement (mass/volume)Ordered By: Dulce Villar on 04-08-2025 Calcium [Mass/Vol] 8.5 mg/dL 7.6-11.0 [facility] Serum or plasma urea nitroge n measurement (mass/volume)Ordered By: Dulce Villar on 04-08-2025 Urea nitrogen [Mass/Vol] 7 mg/dL 4-19 [facility] Sodium levelOrdered By: Feng diane Olena on 04-08-2025 Sodium [Moles/Vol] 135 mmol/L 133-145 [facility] Total proteinOrdered By: Javier Villar on 04-08-2025 Protein [Mass/Vol] 6.2 g/dL 5.9-8.4 [facility] Urine protein measurement (m ass/volume)Ordered By: Dulce Villar on 04-08-2025 Protein (U) [Mass/Vol] 11.5 mg/dL 0.0-12.0 [facility] Urine protein/creatinine mas s ratioOrdered By: Dulce Villar on 04-08-2025 Protein/Creatinine (U) [Mass ratio] 96 mg/g CRE 0-200 [facility] White blood cell (WBC) count Ordered By: Dulce Villar on 04-08-2025 WBC (Bld) [#/Vol] 8.4 10*3/uL 4.4-11.0 [facility] 12 Lead EKGon 04-05-2025 12 Lead E[address] [facility] Cardiovascular Services [address] [place] [address] 12 Lead EKG 04/05/25 1212 MR#: [id number] Acct: [id number] Name: SHIRA ARBOLEDA Rep #: [id number] : 1990 34 From: Anthony Jensen MD [...] consider inferior ischemia Abnormal ECG Confirmed by EZEQUIEL CHAUHAN, ANTHONY ([id number]), digital editor DENISE ONEILL ([id number]) on 04/06/2025 8:03:54 AM Referred By: Confirmed By: ANTHONY JENSEN MD 04/06/25 08 Date Anthony Jensen MD CC: Dr. Braulio Bosch MD; Dr. Alejandro Gonzalez MD Signed Normal [facility] AST(SGOT)Ordered By: Mary koroma on 04-05-2025 AST [Catalytic activity/Vol] 20 U/L Normal <=31 [facility] Comment on above: Performed By: #### L 501.0900, L501.4405, L501.4100, L501.1400, L100.0500, L501.1105 #### [facility] [address] [place], [place], [id number] Absolute lymphocyte countOrd ered By: Alejandro Gonzalez on 04-05-2025 Lymphocytes Auto (Unsp spec) [#/Vol] 1.88 10*3/uL 0.83-4.51 [facility] Absolute neutrophil countOrd ered By: Alejandro Gonzalez on 04-05-2025 Neutrophils (Bld) [#/Vol] 5.6 10*3/uL 2.0-7.7 [facility] Anion gap in Serum or Plasma Ordered By: Alejandro Gonzalez on 04-05-2025 Anion gap [Moles/Vol] 12 mmol/L 5-15 [facility] Automated blood erythrocyte countOrdered By: Mary Madrigal on 04-05-2025 RBC (Bld) [#/Vol] 3.94 10*6/uL Low 4.2-5.4 [facility] Comment on above: Performed By: #### L 501.0900, L501.4405, L501.4100, L501.1400, L100.0500, L501.1105 #### [facility] [address] [place], [address] Automated blood hematocrit ( percentage)Ordered By: Mary Madrigal on 04-05-2025 Hematocrit (Bld) [Volume fraction] 35.0 % Low 37-47 [facility] Comment on above: Performed By: #### L 501.0900, L501.4405, L501.4100, L501.1400, L100.0500, L501.1105 #### [facility] [address] [place], [address] Automated lymphocyte count a s percentage of total leukocytesOrdered By: Alejandro Gonzalez on 04-05-2025 Lymphocytes/100 WBC Auto (Unsp spec) 22.7 % [facility] BUN/creatinine ratioOrdered By: Alejandro Gonzalez on 04-05-2025 Urea nitrogen/Creatinine [Mass ratio] 15.8 mg/mg 04-26 [facility] Basic Metabolic Profile (BMP )on 04-05-2025 BUN/CRE 15.8 RATIO Normal 04-26 [facility] Comment on above: Performed By: #### L 100.0100, L501.4021, L500.2500 #### [facility] [address] [place], [address] Calcium [Mass/Vol] 8.3 mg/dL Normal 7.6-11.0 [facility] Comment on above: Performed By: #### L 100.0100, L501.4021, L500.2500 #### [facility] [address] [place], [address] Chloride [Moles/Vol] 103 mmol/L Normal 98-108 [facility] Comment on above: Performed By: #### L 100.0100, L501.4021, L500.2500 #### [facility] [address] [place], [address] CO2 [Moles/Vol] 20.6 mmol/L Low 21.0-32.0 [facility] Comment on above: Performed By: #### L 100.0100, L501.4021, L500.2500 #### [facility] [address] [place], [address] Creatinine [Mass/Vol] 0.50 mg/dL Low 0.70-1.20 [facility] Comment on above: Performed By: #### L 100.0100, L501.4021, L500.2500 #### [facility] [address] [place], [address] ECRCL 190.00 ml/min Normal 50-250 [facility] Comment on above: Performed By: #### L 100.0100, L501.4021, L500.2500 #### [facility] [address] [place], [address] GAP 12 Normal 5-15 [facility] Comment on above: Performed By: #### L 100.0100, L501.4021, L500.2500 #### [facility] [address] [place], [address] GFR/1.73 sq M.predicted among non-blacks MDRD (S/P/Bld) [Vol rate/Area] 127 mL/min/{1.73_m2} Normal >60 [facility] Comment on above: Result Comment: mL/m in/1.73m2 CKD-EPI Creatinine Equation (2020) Performed By: #### L 100.0100, L501.4021, L500.2500 #### [facility] [address] [place], [address] Glucose [Mass/Vol] 84 mg/dL Normal 70-99 [facility] Comment on above: Performed By: #### L 100.0100, L501.4021, L500.2500 #### [facility] [address] [place], [address] Potassium [Moles/Vol] 4.1 mmol/L Normal 3.3-5.1 [facility] Comment on above: Result Comment: Hemo lysis present, Results??could be affected. ?? Performed By: #### L 100.0100, L501.4021, L500.2500 #### [facility] [address] [place], [address] Sodium [Moles/Vol] 135 mmol/L Normal 133-145 [facility] Comment on above: Performed By: #### L 100.0100, L501.4021, L500.2500 #### [facility] [address] [place], [address] Urea nitrogen [Mass/Vol] 8 mg/dL Normal 4-19 [facility] Comment on above: Performed By: #### L 100.0100, L501.4021, L500.2500 #### [facility] [address] [place], [address] Basophil percentageOrdered B y: Alejandro Gonzalez on 04-05-2025 Basophils/100 WBC (Bld) 0.6 % 0-1 [facility] CBC W/Diff, Automatedon 03-09 Absolute Lymph 1.88 X10 3/uL Normal 0.83-4.51 [facility] Comment on above: Performed By: #### L 100.0100, L501.4021, L500.2500 #### [facility] [address] [place], [address] Absolute Neut 5.6 X10 3/uL Normal 2.0-7.7 [facility] Comment on above: Performed By: #### L 100.0100, L501.4021, L500.2500 #### [facility] [address] [place], [address] Basophils/100 WBC (Bld) 0.6 % Normal 0-1 [facility] Comment on above: Performed By: #### L 100.0100, L501.4021, L500.2500 #### [facility] [address] [place], [address] Eosinophils/100 WBC (Bld) 0.8 % Normal 0-5 [facility] Comment on above: Performed By: #### L 100.0100, L501.4021, L500.2500 #### [facility] [address] [place], [address] Erythrocyte distribution width (RBC) [Ratio] 12.6 % Normal 11.6-14.6 [facility] Comment on above: Performed By: #### L 100.0100, L501.4021, L500.2500 #### [facility] [address] [place], [address] Hematocrit (Bld) [Volume fraction] 32.3 % Low 37-47 [facility] Comment on above: Performed By: #### L 100.0100, L501.4021, L500.2500 #### [facility] [address] [place], [address] Hemoglobin (Bld) [Mass/Vol] 11.0 g/dL Low 12.0-15.0 [facility] Comment on above: Performed By: #### L 100.0100, L501.4021, L500.2500 #### [facility] [address] [place], [address] IG% 2.500 High 0.0-0.9 [facility] Comment on above: Result Comment: IG% - Immature Granulocytes (promyelocytes, myelocytes and metamyelocytes) > 1% indicates that a LEFT SHIFT is Present. Performed By: #### L 100.0100, L501.4021, L500.2500 #### [facility] [address] [place], [address] Lymphocytes/100 WBC (Bld) 22.7 % Normal 19-41 [facility] Comment on above: Performed By: #### L 100.0100, L501.4021, L500.2500 #### [facility] [address] [place], [address] MCH (RBC) [Entitic mass] 30.0 pg Normal 27.0-32.0 [facility] Comment on above: Performed By: #### L 100.0100, L501.4021, L500.2500 #### [facility] [address] [place], [address] MCHC (RBC) [Mass/Vol] 34.1 g/dL Normal 32-36 [facility] Comment on above: Performed By: #### L 100.0100, L501.4021, L500.2500 #### [facility] [address] [place], [address] MCV (RBC) [Entitic vol] 88.0 fL Normal 81-99 [facility] Comment on above: Performed By: #### L 100.0100, L501.4021, L500.2500 #### [facility] [address] [place], [address] Monocytes/100 WBC (Bld) 6.3 % Normal 0-10 [facility] Comment on above: Performed By: #### L 100.0100, L501.4021, L500.2500 #### [facility] [address] [place], [address] Neutrophils/100 WBC (Bld) 67.1 % Normal 47-70 [facility] Comment on above: Performed By: #### L 100.0100, L501.4021, L500.2500 #### [facility] [address] [place], [address] Nucleated RBC (Bld) [#/Vol] 0 10*3/uL Normal 0-5 [facility] Comment on above: Performed By: #### L 100.0100, L501.4021, L500.2500 #### [facility] [address] [place], [address] Platelet mean volume (Bld) [Entitic vol] 9.2 fL Normal 6.2-12.0 [facility] Comment on above: Performed By: #### L 100.0100, L501.4021, L500.2500 #### [facility] [address] [place], [address] Platelets (Bld) [#/Vol] 160 10*3/uL Normal 150-450 [facility] Comment on above: Performed By: #### L 100.0100, L501.4021, L500.2500 #### [facility] [address] [place], [address] RBC (Bld) [#/Vol] 3.67 10*6/uL Low 4.2-5.4 [facility] Comment on above: Performed By: #### L 100.0100, L501.4021, L500.2500 #### [facility] [address] [place], [address] RDW SD 40.2 fl Normal 35.1-43.9 [facility] Comment on above: Performed By: #### L 100.0100, L501.4021, L500.2500 #### [facility] [address] [place], [address] WBC (Bld) [#/Vol] 8.3 10*3/uL Normal 4.4-11.0 [facility] Comment on above: Performed By: #### L 100.0100, L501.4021, L500.2500 #### [facility] [address] [place], [address] CBC-Complete Blood Cnt No Di ffon 04-05-2025 RDW SD 40.8 fl Normal 35.1-43.9 [facility] Comment on above: Performed By: #### L 501.0900, L501.4405, L501.4100, L501.1400, L100.0500, L501.1105 #### [facility] [address] [place], [address] CTA Chest W/WO Contraston CTA Chest W/WO Contrast [facility] Imaging Services [address] [place] [address] CTA Chest W/WO Contrast MR#: [id number] Acct: [id number] Name: SHIRA ARBOLEDA Rep #: [id number] : 1990 F 34 From: Katarina Purvis MD PCP: Dr. Braulio Bosch MD Status: REG ER Study: CTA Chest W/WO Contrast Date of Exam: 04/05/25 Exam# [id number] Ordering Dr: Alejandro Gonzalez MD PROCEDURE: CTA [...] or outflow track. Unremarkable exam. Reading Location: [place] [address] CC: Dr. Braulio Bosch MD; Dr. Alejandro Gonzalez MD Door To Door Selling Agent: Signed Normal [facility] Carbon dioxide, total [Moles /volume] in Central venous bloodOrdered By: Alejandro Gonzalez on 04-05-2025 CO2 [Moles/Vol] 20.6 mmol/L Low 21.0-32.0 [facility] Chest PA and Lateralon 04-05 Chest PA and Lateral [facility] Imaging Services [address] [place], [place] [address] Chest PA and Lateral MR#: [id number] Acct: [id number] Name: SHIRA ARBOLEDA Rep #: [id number] : 1990 F 34 From: Katarina Purvis MD PCP: Dr. Braulio Bosch MD Status: REG ER Study: Chest PA and Lateral Date of Exam: 04/05/25 Exam# [id number] Ordering Dr: Alejandro Gonzalez MD PROCEDURE: CHEST PA AND LATERAL 04/05/2025 REASON FOR EXAM: CHEST PAIN TECHNIQUE: Procedure Code: RADCXR Modality: DX Procedure: CHEST PA AND LATERAL COMPARISON: 07/03/2022 FINDINGS: Cardiomediastinal silhouette pulmonary vasculature and bony thorax are within normal limits. No focal infiltrates or effusion. RAD/Chest PA and Lateral IMPRESSION: No radiographic evidence of acute cardiopulmonary disease. Reading Location: [place] [address] CC: Dr. Braulio Bosch MD; Dr. Alejandro Gonzalez MD Door To Door Selling Agent: Signed Normal [facility] Chloride assayOrdered By: Deion Gonzalez on 04-05-2025 Chloride [Moles/Vol] 103 mmol/L 98-108 [facility] D-Dimer Quantitative (DVT/PE )on 04-05-2025 D-DIMER QUANT 0.66 FEU/ug/m Invalid Interpretation Code 0.27-0.49 [facility] Comment on above: Result Comment: D-Di otf ELEVATED (>0.49): Additional studies and clinical assessments are indicated to conclude diagnosis of: Deep Vein Thrombosis (DVT) or Pulmonary Embolism (PE) CRITICAL VALUE CALLED TO MARQUEZ 04/05/25 India Orozco. RESULTS READ BACK BY SAME. Performed By: #### L 300.8000 #### [facility] [address] [place], [address] Electrocardiogram reportOrde red By: Anthony Jensen on 04-05-[address] [facility] Cardiovascular Services [address] [place] [address] 12 Lead EKG 04/05/25 1212 MR#: [id number] Acct: [id number] Name: SHIRA ARBOLEDA Rep #:[id number] : 1990 34 From: Anthony Jensen MD [...] Abnormal ECG Confirmed by ANTHONY JENSEN MD ([id number]), digital editor DENISE ONEILL ([id number]) on 58:03:54 AM Referred By: Confirmed By: ANTHONY JENSEN MD 04/06/25 0803 Date _ Anthony Jensen MD CC: Dr. Braulio Bosch MD; Dr. Alejandro Gonzalez MD ~ Signed [facility] Other Phone: Emergency Department Summary on 04-05-2025 Emergency Department Summary [facility] Medical Records Department [address] [place] [address] Emergency Department Summary 04/05/25 MR#: [id number] Acct: [id number] Name: SHIRA ARBOLEDA Rep #: [id number] : 1990 34 From: Alejandro Gonzalez MD [...] similar symptoms: Yes Recent Illness/Hospitalization: No PFSH PFSH Medical History Anxiety and depression Elective Dizziness Shortness of breath Hemorrhoid GERD (gastroesophageal reflux disease) Genital herpes Home Medications ???Medication ???Instructions ???Recorded ???Last Taken ???Type multivit-min no.71-iron fum 28 cap PO 10/22/24 04/05/25 History mg-folate no.1 1 mg-dha 300 mg capsule (PNV-Garvin) hydroxyzine HCl 25 mg tablet 25 mg [...] employed 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 Constitutional [...] regular rhythm (more content not included)... Normal [facility] Eosinophil percentageOrdered By: Alejandro Gonzalez on 04-05-2025 Eosinophils/100 WBC (Bld) 0.8 % 0-5 [facility] Erythrocyte distribution wid th ratioOrdered By: Alejandro Gonzalez on 04-05-2025 Erythrocyte distribution width (RBC) [Ratio] 12.6 % 11.6-14.6 [facility] Erythrocyte distribution wid th ratioOrdered By: Mary Madrigal on 04-05-2025 Erythrocyte distribution width (RBC) [Ratio] 12.5 % Normal 11.6-14.6 [facility] Comment on above: Performed By: #### L 501.0900, L501.4405, L501.4100, L501.1400, L100.0500, L501.1105 #### [facility] [address] [place], [address] Erythrocyte distribution wid th standard deviationOrdered By: Alejandro Gonzalez on 04-05-2025 Erythrocyte distribution width (RBC) [Ratio] 40.2 fl 35.1-43.9 [facility] Erythrocyte distribution wid th standard deviationOrdered By: Mary Madrigal on 04-05-2025 Erythrocyte distribution width (RBC) [Ratio] 40.8 fl 35.1-43.9 [facility] Glomerular filtration rate ( GFR) estimation/1.73 sq m using serum, plasma, or whole bOrdered By: Alejandro Gonzalez on 04-05-2025 GFR/1.73 sq M.predicted among non-blacks MDRD (S/P/Bld) [Vol rate/Area] 127 mL/min/{1.73_m2} >60 [facility] Comment on above: mL/min/1.73m2 CKD-EP I Creatinine Equation (2020) Glomerular filtration rate ( GFR) estimation/1.73 sq m using serum, plasma, or whole bOrdered By: Mary Madrigal on 04-05-2025 GFR/1.73 sq M.predicted among non-blacks MDRD (S/P/Bld) [Vol rate/Area] 124 mL/min/{1.73_m2} Normal >60 [facility] Comment on above: mL/min/1.73m2 CKD-EP I Creatinine Equation (2020) Result Comment: mL/m in/1.73m2 CKD-EPI Creatinine Equation (2020) Performed By: #### L 501.0900, L501.4405, L501.4100, L501.1400, L100.0500, L501.1105 #### [facility] [address] [place], [address] Hematocrit Auto (Bld) [Volum e fraction]Ordered By: Alejandro Gonzalez on 04-05-2025 Hematocrit (Bld) [Volume fraction] 32.3 % Low 37-47 [facility] Hemoglobin measurementOrdere d By: Alejandro Gonzalez on 04-05-2025 Hemoglobin (Bld) [Mass/Vol] 11.0 g/dL Low 12.0-15.0 [facility] Hemoglobin measurementOrdere d By: Mary Madrigal on 04-05-2025 Hemoglobin (Bld) [Mass/Vol] 11.5 g/dL Low 12.0-15.0 [facility] Comment on above: Performed By: #### L 501.0900, L501.4405, L501.4100, L501.1400, L100.0500, L501.1105 #### [facility] [address] [place], [address] Immature granulocytes/100 WB C Auto (Bld)Ordered By: Alejandro Gonzalez on 04-05-2025 Immature granulocytes/100 WBC (Bld) 2.500 % High 0.0-0.9 [facility] Comment on above: IG% - Immature Granu locytes (promyelocytes, myelocytes and metamyelocytes) > 1% indicates that a LEFT SHIFT is Present. L501.4021on 04-05-2025 Trop T High Sen < 6 Normal <=14 [facility] Comment on above: Performed By: #### L 501.0900, L501.4405, L501.4100, L501.1400, L100.0500, L501.1105 #### [facility] [address] [place], [address] MCV (mean corpuscular volume ) determinationOrdered By: Alejandro Gonzalez on 04-05-2025 MCV (RBC) [Entitic vol] 88.0 fL 81-99 [facility] MCV (mean corpuscular volume ) determinationOrdered By: Mary Madrigal on 04-05-2025 MCV (RBC) [Entitic vol] 88.8 fL Normal 81-99 [facility] Comment on above: Performed By: #### L 501.0900, L501.4405, L501.4100, L501.1400, L100.0500, L501.1105 #### [facility] [address], [place], [id number] Mean corpuscular hemoglobin (MCH) determinationOrdered By: Alejandro Gonzalez on 04-05-2025 MCH (RBC) [Entitic mass] 30.0 pg 27.0-32.0 [facility] Mean corpuscular hemoglobin (MCH) determinationOrdered By: Mary Madrigal on 04-05-2025 MCH (RBC) [Entitic mass] 29.2 pg Normal 27.0-32.0 [facility] Comment on above: Performed By: #### L 501.0900, L501.4405, L501.4100, L501.1400, L100.0500, L501.1105 #### [facility] [address] [place], [address] Mean corpuscular hemoglobin concentration (MCHC) determinationOrdered By: Alejandro Gonzalez on 04-05-2025 MCHC (RBC) [Mass/Vol] 34.1 g/dL 32-36 [facility] Mean corpuscular hemoglobin concentration (MCHC) determinationOrdered By: Mray Madrigal on 04-05-2025 MCHC (RBC) [Mass/Vol] 32.9 g/dL Normal 32-36 [facility] Comment on above: Performed By: #### L 501.0900, L501.4405, L501.4100, L501.1400, L100.0500, L501.1105 #### [facility] [address] [place], [place], [id number] Mean platelet volume determi nationOrdered By: Alejandro Gonzalez on 04-05-2025 Platelet mean volume (Bld) [Entitic vol] 9.2 fL 6.2-12.0 [facility] Mean platelet volume determi nationOrdered By: Mary Madrigal on 04-05-2025 Platelet mean volume (Bld) [Entitic vol] 8.8 fL Normal 6.2-12.0 [facility] Comment on above: Performed By: #### L 501.0900, L501.4405, L501.4100, L501.1400, L100.0500, L501.1105 #### [facility] [address] [facility] [place], [address] Monocyte percentageOrdered B y: Alejandro Gonzalez on 04-05-2025 Monocytes/100 WBC (Bld) 6.3 % 0-10 [facility] Neutrophil percentageOrdered By: Alejandro Gonzalez on 04-05-2025 Neutrophils/100 WBC (Bld) 67.1 % 47-70 [facility] Nucleated red blood cell per centageOrdered By: Alejandro Gonzalez on 04-05-2025 Nucleated RBC/100 WBC (Bld) [Ratio] 0 % 0-5 [facility] OB Triage Progress Noteon OB Triage Progress Note [facility] Medical Records Department [address] [place] [address] OB Triage Progress Note 04/05/25 1046 MR#: [id number] Acct: [id number] Name: SHIRA ARBOLEDA Rep #: [id number] : 1990 34 From: Mary Madrigal CNM PCP: Dr. Braulio Bosch MD Status:DEP CLI Y DOS: Location: OUT Progress Notes Progress Note: Patient presents for triage evaluation secondary to shortness of breath and blurred vision. FHT: 135 Moderate variability reactive no decelerations category I tracing [place]: irregular mild Contractions Assessment and plan: pre e labs and normal BP, Reactive NST, reassuring maternal and status patient to ER for evaluation of shortness of breath. See problem list details for additional plan information. Charges/Coding Multi Select Codes Urinary/Genital Urinary/Genital CPT Codes: 33614-48 non-stress test Interp Assessment Plan (1) Blurred [...] , TIFFANY 06/14/25, girl [facility] [place], [place], [place], Partner Chintan (6) History of marijuana use: COMMENT: Gummies last used 05/31, discussed random tox screens during (7) Hx of depression, currently : (8) FH: cleft lip and palate: COMMENT: Brother 04/05/25 1411 Date Mary Madrigal CNM Cosigner Signature (if applicable): Date CC: SMITA Madrigal; Dr. Braulio Bosch MD Signed Normal [facility] Platelet countOrdered By: Deion Gonzalez on 04-05-2025 Platelets (Bld) [#/Vol] 160 10*3/uL 150-450 [facility] Platelet countOrdered By: Vishnu Madrigal on 04-05-2025 Platelets (Bld) [#/Vol] 166 10*3/uL Normal 150-450 [facility] Comment on above: Performed By: #### L 501.0900, L501.4405, L501.4100, L501.1400, L100.0500, L501.1105 #### [facility] [address] [place], [place] [address], [address] Potassium measurement (mass/ volume)Ordered By: Alejandro Gonzalez on 04-05-2025 Potassium (Unsp spec) [Mass/Vol] 4.1 mmol/L 3.3-5.1 [facility] Comment on above: Hemolysis present, R esults could be affected. Protein+Creatinine Ratio,Uri neon 04-05-2025 PROT:CRE RATIO 242 mg/g CRE High 0-200 [facility] Comment on above: Performed By: #### L 501.0900, L501.4405, L501.4100, L501.1400, L100.0500, L501.1105 #### [facility] [address] [place], [address] UR CREAT 38.60 mg/dL Normal 28.00-217.00 [facility] Comment on above: Performed By: #### L 501.0900, L501.4405, L501.4100, L501.1400, L100.0500, L501.1105 #### [facility] [address] [place], [address] RBC Auto (Bld) [#/Vol]Ordere d By: Alejandro Gonzalez on 04-05-2025 RBC (Bld) [#/Vol] 3.67 10*6/uL Low 4.2-5.4 [facility] Random urine creatinine chaitanya urement (mass/volume)Ordered By: Mary Madrigal on 04-05-2025 Creatinine Unsp time (U) [Mass/Vol] 38.60 mg/dL 28.00-217.00 [facility] Serum Creatinine AND GFRon 0 04-05-2025 ECRCL 172.72 ml/min Normal 50-250 [facility] Comment on above: Performed By: #### L 501.0900, L501.4405, L501.4100, L501.1400, L100.0500, L501.1105 #### [facility] [address] [place], [address] Serum creatinine measurement (mass/volume)Ordered By: Alejandro Gonzalez on 04-05-2025 Creatinine [Mass/Vol] 0.50 mg/dL Low 0.70-1.20 [facility] Serum creatinine measurement (mass/volume)Ordered By: Mary Madrigal on 04-05-2025 Creatinine [Mass/Vol] 0.55 mg/dL Low 0.70-1.20 [facility] Comment on above: Performed By: #### L 501.0900, L501.4405, L501.4100, L501.1400, L100.0500, L501.1105 #### [facility] [address] [place], [place], [address] Serum glucose measurement (m ass/volume)Ordered By: Alejandro Gonzalez on 04-05-2025 Glucose [Mass/Vol] 84 mg/dL 70-99 [facility] Serum or plasma alanine dey otransferase (ALT) measurementOrdered By: Mary Madrigal on 04-05-2025 ALT [Catalytic activity/Vol] 13 U/L Normal <=34 [facility] Comment on above: Performed By: #### L 501.0900, L501.4405, L501.4100, L501.1400, L100.0500, L501.1105 #### [facility] [address] [facility]. [place], [place], [address] Serum or plasma calcium chaitanya urement (mass/volume)Ordered By: Alejandro Gonzalez on 04-05-2025 Calcium [Mass/Vol] 8.3 mg/dL 7.6-11.0 [facility] Serum or plasma urea nitroge n measurement (mass/volume)Ordered By: Alejandro Gonzalez on 04-05-2025 Urea nitrogen [Mass/Vol] 8 mg/dL 4-19 [facility] Serum or plasma uric acid me asurement (mass/volume)Ordered By: Mary Madrigal on 04-05-2025 Urate [Mass/Vol] 4.5 mg/dL 2.6-6.0 [facility] Comment on above: The drugs N-Acetylcy steine and Metamizole may falsely depress this assay. Sodium levelOrdered By: Alejandro Gonzalez on 04-05-2025 Sodium [Moles/Vol] 135 mmol/L 133-145 [facility] Troponin T HS 2 HRon 025 Trop T High Sen < 6 Normal <=14 [facility] Comment on above: Performed By: #### L 501.0900, L501.4405, L501.4100, L501.1400, L100.0500, L501.1105 #### [facility] [address] [place], [address] Troponin T HS 4 HRon 025 Trop T High Sen Normal <=14 [facility] Comment on above: Result Comment: [place] howell via OM: Ordered Performed By: #### L 501.0900, L501.4405, L501.4100, L501.1400, L100.0500, L501.1105 #### [facility] [address] [place], [address] Troponin T.cardiac [Mass/vol ume] in Serum or Plasma by High sensitivity methodOrdered By: Alejandro Gonzalez on 04-05-2025 Troponin T.cardiac High sensitivity method [Mass/Vol] < 6 ng/L <14 [facility] Troponin T.cardiac High sensitivity method [Mass/Vol] < 6 ng/L <14 [facility] Uric Acidon 04-05-2025 URIC 4.5 mg/dL Normal 2.6-6.0 [facility] Comment on above: Result Comment: The drugs N-Acetylcysteine and Metamizole may falsely depress this assay. Performed By: #### L 501.0900, L501.4405, L501.4100, L501.1400, L100.0500, L501.1105 #### [facility] [address] [place], [address] Urine protein measurement (m ass/volume)Ordered By: Mary Madrigal on 04-05-2025 Protein (U) [Mass/Vol] 9.3 mg/dL Normal 0.0-12.0 [facility] Comment on above: Performed By: #### L 501.0900, L501.4405, L501.4100, L501.1400, L100.0500, L501.1105 #### [facility] [address] [place], [place], [id number] Urine protein/creatinine mas s ratioOrdered By: Mary Madrigal on 04-05-2025 Protein/Creatinine (U) [Mass ratio] 242 mg/g CRE High 0-200 [facility] White blood cell (WBC) count Ordered By: Alejandro Gonzalez on 04-05-2025 WBC (Bld) [#/Vol] 8.3 10*3/uL 4.4-11.0 [facility] White blood cell (WBC) count Ordered By: Mary Madrigal on 04-05-2025 WBC (Bld) [#/Vol] 8.4 10*3/uL Normal 4.4-11.0 [facility] Comment on above: Performed By: #### L 501.0900, L501.4405, L501.4100, L501.1400, L100.0500, L501.1105 #### [facility] [address] [place], [address] Gestational GTT 3HR 100gon 0 03-26-2025 GEST GTT 100gm Normal [facility] Comment on above: Order Comment: Y Result Comment: FAST ING 82 Col: 03/26/25 1013 GLUCOSE TOLERANCE TEST FOR Reference Interval GESTATIONAL DIABETES Fasting <105 mg/dL 1 hour <190 mg/dl 2 hour <165 mg/dl 3 hour <145 mg/dl 1 HR GLU 174 Col: 03/26/25 1144 2 HR GLU 143 Col: 03/26/25 1243 3 HR GLU 91 Col: 03/26/25 1341 Performed By: #### L 501.0900, L501.4405, L501.4100, L501.1400, L100.0500, L501.1105 #### [facility] [address] [place], [place], [id number] Quantitative serum or plasma 3 hour gestational glucose tolerance panelOrdered By: Bertha May on 03-26-2025 Glucose tolerance 3 hours gestational panel See comment [facility] Comment on above: FASTING 82 Col: 03/08 04/01 1013GLUCOSE TOLERANCE TEST FOR Reference Interval GESTATIONAL DIABETES Fasting <105 mg/dL 1 hour <190 mg/dl 2 hour <165 mg/dl 3 hour <145 mg/dl 1 HR GLU 174 Col: 03/26/25 1144 2 HR GLU 143 Col: 03/26/25 1243 3 HR GLU 91 Col: 03/26/25 1341 Absolute lymphocyte countOrd ered By: Dulce Newberryketan on 03-23-2025 Lymphocytes Auto (Unsp spec) [#/Vol] 1.71 10*3/uL 0.83-4.51 [facility] Absolute neutrophil countOrd ered By: Dulce Rohithketan on 03-23-2025 Neutrophils (Bld) [#/Vol] 4.6 10*3/uL 2.0-7.7 [facility] Automated lymphocyte count a s percentage of total leukocytesOrdered By: Dulce Villar on 03-23-2025 Lymphocytes/100 WBC Auto (Unsp spec) 24.5 % 19-41 [facility] Basophil percentageOrdered B y: Dulce Villar on 03-23-2025 Basophils/100 WBC (Bld) 0.6 % 0-1 [facility] CBC W/Diff, Automatedon 03-08 Absolute Lymph 1.71 X10 3/uL Normal 0.83-4.51 [facility] Comment on above: Performed By: #### L 501.0900, L501.4405, L501.4100, L501.1400, L100.0500, L501.1105 #### [facility] [address] [place], [address] Absolute Neut 4.6 X10 3/uL Normal 2.0-7.7 [facility] Comment on above: Performed By: #### L 501.0900, L501.4405, L501.4100, L501.1400, L100.0500, L501.1105 #### [facility] [address] [place], [address] Basophils/100 WBC (Bld) 0.6 % Normal 0-1 [facility] Comment on above: Performed By: #### L 501.0900, L501.4405, L501.4100, L501.1400, L100.0500, L501.1105 #### [facility] [address] [place], [address] Eosinophils/100 WBC (Bld) 1.1 % Normal 0-5 [facility] Comment on above: Performed By: #### L 501.0900, L501.4405, L501.4100, L501.1400, L100.0500, L501.1105 #### [facility] [address] [place], [address] Erythrocyte distribution width (RBC) [Ratio] 12.5 % Normal 11.6-14.6 [facility] Comment on above: Performed By: #### L 501.0900, L501.4405, L501.4100, L501.1400, L100.0500, L501.1105 #### [facility] [address] [place], [address] Hematocrit (Bld) [Volume fraction] 33.7 % Low 37-47 [facility] Comment on above: Performed By: #### L 501.0900, L501.4405, L501.4100, L501.1400, L100.0500, L501.1105 #### [facility] [address] [place], [address] Hemoglobin (Bld) [Mass/Vol] 11.3 g/dL Low 12.0-15.0 [facility] Comment on above: Performed By: #### L 501.0900, L501.4405, L501.4100, L501.1400, L100.0500, L501.1105 #### [facility] [address] [place], [address] IG% 1.700 High 0.0-0.9 [facility] Comment on above: Result Comment: IG% - Immature Granulocytes (promyelocytes, myelocytes and metamyelocytes) > 1% indicates that a LEFT SHIFT is Present. Performed By: #### L 501.0900, L501.4405, L501.4100, L501.1400, L100.0500, L501.1105 #### [facility] [address] [place], [address] Lymphocytes/100 WBC (Bld) 24.5 % Normal 19-41 [facility] Comment on above: Performed By: #### L 501.0900, L501.4405, L501.4100, L501.1400, L100.0500, L501.1105 #### [facility] [address] [place], [address] MCH (RBC) [Entitic mass] 29.4 pg Normal 27.0-32.0 [facility] Comment on above: Performed By: #### L 501.0900, L501.4405, L501.4100, L501.1400, L100.0500, L501.1105 #### [facility] [address] [place], [address] MCHC (RBC) [Mass/Vol] 33.5 g/dL Normal 32-36 [facility] Comment on above: Performed By: #### L 501.0900, L501.4405, L501.4100, L501.1400, L100.0500, L501.1105 #### [facility] [address] [place], [address] MCV (RBC) [Entitic vol] 87.5 fL Normal 81-99 [facility] Comment on above: Performed By: #### L 501.0900, L501.4405, L501.4100, L501.1400, L100.0500, L501.1105 #### [facility] [address] [place], [address] Monocytes/100 WBC (Bld) 6.2 % Normal 0-10 [facility] Comment on above: Performed By: #### L 501.0900, L501.4405, L501.4100, L501.1400, L100.0500, L501.1105 #### [facility] [address] [place], [address] Neutrophils/100 WBC (Bld) 65.9 % Normal 47-70 [facility] Comment on above: Performed By: #### L 501.0900, L501.4405, L501.4100, L501.1400, L100.0500, L501.1105 #### [facility] [address] [place], [address] Nucleated RBC (Bld) [#/Vol] 0 10*3/uL Normal 0-5 [facility] Comment on above: Performed By: #### L 501.0900, L501.4405, L501.4100, L501.1400, L100.0500, L501.1105 #### [facility] [address] [place], [address] Platelet mean volume (Bld) [Entitic vol] 9.5 fL Normal 6.2-12.0 [facility] Comment on above: Performed By: #### L 501.0900, L501.4405, L501.4100, L501.1400, L100.0500, L501.1105 #### [facility] [address] [place], [address] Platelets (Bld) [#/Vol] 179 10*3/uL Normal 150-450 [facility] Comment on above: Performed By: #### L 501.0900, L501.4405, L501.4100, L501.1400, L100.0500, L501.1105 #### [facility] [address] [place], [address] RBC (Bld) [#/Vol] 3.85 10*6/uL Low 4.2-5.4 [facility] Comment on above: Performed By: #### L 501.0900, L501.4405, L501.4100, L501.1400, L100.0500, L501.1105 #### [facility] [address] [place], [address] RDW SD 39.6 fl Normal 35.1-43.9 [facility] Comment on above: Performed By: #### L 501.0900, L501.4405, L501.4100, L501.1400, L100.0500, L501.1105 #### [facility] [address] [place], [address] WBC (Bld) [#/Vol] 7.0 10*3/uL Normal 4.4-11.0 [facility] Comment on above: Performed By: #### L 501.0900, L501.4405, L501.4100, L501.1400, L100.0500, L501.1105 #### [facility] [address] [place], [place], [id number] Eosinophil percentageOrdered By: Dulce Villar on 03-23-2025 Eosinophils/100 WBC (Bld) 1.1 % 0-5 [facility] Erythrocyte distribution wid th ratioOrdered By: Dulce Villar on 03-23-2025 Erythrocyte distribution width (RBC) [Ratio] 12.5 % 11.6-14.6 [facility] Erythrocyte distribution wid th standard deviationOrdered By: Dulce Villar on 03-23-2025 Erythrocyte distribution width (RBC) [Ratio] 39.6 fl 35.1-43.9 [facility] Glucose Challenge Gest 1H 50 brenda 03-23-2025 GLU GEST 50g 1H 141 mg/dL High 70-140 [facility] Comment on above: Performed By: #### L 501.0900, L501.4405, L501.4100, L501.1400, L100.0500, L501.1105 #### [facility] [address] [facility] [address] [place], [place], [address] Glucose measurement at 2 samantha rs post-dose gestational glucose tolerance testOrdered By: Dulce Villar on 03-23-2025 Glucose [Mass/Vol] 141 mg/dL High 70-140 [facility] HIVon 03-23-2025 HIV Non-Reactive Normal Nonreactive [facility] Comment on above: Result Comment: Non- Reactive Reactive Repeatedly reactive samples must be confirmed according to CDC recommended confirmatory algorithms. The subresults for either HIVAG or AHIV can be used as an aid in the selection of the confirmation algorithm for reactive samples. Send out specimens with Reactive results to [facility] for confirmation. Order the HIV antibody detection and differentiation: [id number] Performed By: #### L 501.0900, L501.4405, L501.4100, L501.1400, L100.0500, L501.1105 #### [facility] [address] [facility] [place], [address] Hematocrit Auto (Bld) [Volum e fraction]Ordered By: Dulce Villar on 03-23-2025 Hematocrit (Bld) [Volume fraction] 33.7 % Low 37-47 [facility] Hemoglobin measurementOrdere d By: Dulce Villar on 03-23-2025 Hemoglobin (Bld) [Mass/Vol] 11.3 g/dL Low 12.0-15.0 [facility] Immature granulocytes/100 WB C Auto (Bld)Ordered By: Dulce Villar on 03-23-2025 Immature granulocytes/100 WBC (Bld) 1.700 % High 0.0-0.9 [facility] Comment on above: IG% - Immature Granu locytes (promyelocytes, myelocytes and metamyelocytes) > 1% indicates that a LEFT SHIFT is Present. Laboratory - Chemistry and C hemistry - challengeOrdered By: Bertha May on 03-23-2025 Glucose Ql (U) Negative [facility] Laboratory - UrinalysisOrder ed By: Bertha May on 03-23-2025 Protein Ql (U) Negative [facility] MCV (mean corpuscular volume ) determinationOrdered By: Dulce Villar on 03-23-2025 MCV (RBC) [Entitic vol] 87.5 fL 81-99 [facility] Mean corpuscular hemoglobin (MCH) determinationOrdered By: Dulce Villar on 03-23-2025 MCH (RBC) [Entitic mass] 29.4 pg 27.0-32.0 [facility] Mean corpuscular hemoglobin concentration (MCHC) determinationOrdered By: Dulce Villar on 03-23-2025 MCHC (RBC) [Mass/Vol] 33.5 g/dL 32-36 [facility] Mean platelet volume determi nationOrdered By: uDlce Villar on 03-23-2025 Platelet mean volume (Bld) [Entitic vol] 9.5 fL 6.2-12.0 [facility] Monocyte percentageOrdered B y: Dulce Villar on 03-23-2025 Monocytes/100 WBC (Bld) 6.2 % 0-10 [facility] Neutrophil percentageOrdered By: Dulce Villar on 03-23-2025 Neutrophils/100 WBC (Bld) 65.9 % 47-70 [facility] No Panel InformationOrdered By: Dulce Villar on 03-23-2025 HIV (1&2) Antibody Non-Reactive Nonreactive [facility] Comment on above: Non-ReactiveReactive Repeatedly reactive samples must be confirmed according to CDC recommended confirmatory algorithms. The subresults for either HIVAG or AHIV can be used as an aid in the selection of the confirmation algorithm for reactive samples.Send out specimens with Reactive results to [facility] for confirmation.Order the HIV antibody detection and differentiation: #[id number] Nucleated red blood cell per centageOrdered By: Dulce Villar on 03-23-2025 Nucleated RBC/100 WBC (Bld) [Ratio] 0 % 0-5 [facility] Director Information Office Visit Reporton 03-23-2025 Director Information Office Visit Report [address], [address] [place] [address] OFFICE VISIT Date of Service: 03/23/25 MR#: [id number] Acct: [id number] Name: SHIRA ARBOLEDA Rep #: [id number] : 1990 Provider: PAM cole Age/Sex: 34/F Location[place] [facility] [place] Status: Signed Intake Vital Signs 01/29/25 08:45 02/26/25 15:39 03/23/25 10:00 Height 5 ft 5 in 5 ft 5 in 5 ft 5 in Weight: 216 lb 4 oz 222 lb BMI 35.9 36.9 BP 117/76 114/72 Intake Visit Reasons: 28 WK OB/Glucose Chief Complaint: 28 Week OB/glucose 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 Required: No Is patient in pain?: No [...] mg-folate no.1 1 mg-dha 300 mg capsule (PNV-Garvin) prochlorperazine maleate 10 mg 10 mg PO [...] (Updated 03/23/25 @ 10:25 by Bertha May COUNTER ROLLER, COUNTER ROLLER-C) Anxiety and depression Elective Dizziness Shortness of [...] current occupational status: employed 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 Date Name GA/Weeks Outcome Route Bth Weight Infant Gen Labor Lgth Anesthesia Del Locatn Provider FOB 03/21/18 Justin 40 live - full term 9lbs 7oz Male epidural [facility] Natali Kilpatrick 06/12/19 Thakur-Goes by Tevin 40 live - full term 8lbs 8oz Male epidural [facility] Dr. Olena Kilpatrick 01/13/21 Isamar 40 live - full term 7lbs 6oz Female epidural [facility] Hafsa iKlpatrick 07/10/24 elective Delivery Date: 03/21/18 Last Updated [...] [] Specifi (more content not included)... Normal [facility] Platelet countOrdered By: Paolo Villar on 03-23-2025 Platelets (Bld) [#/Vol] 179 10*3/uL 150-450 [facility] RBC Auto (Bld) [#/Vol]Ordere d By: Dulce Villar on 03-23-2025 RBC (Bld) [#/Vol] 3.85 10*6/uL Low 4.2-5.4 [facility] Syphilis Antibodieson 2024 Syphilis Abs Non-Reactive Normal Nonreactive [facility] Comment on above: Performed By: #### L 501.0900, L501.4405, L501.4100, L501.1400, L100.0500, L501.1105 #### [facility] [address] [place], [address] White blood cell (WBC) count Ordered By: Dulce Villar on 03-23-2025 WBC (Bld) [#/Vol] 7.0 10*3/uL 4.4-11.0 [facility] Laboratory - Chemistry and C hemistry - challengeOrdered By: Dulce Villar on 02-26-2025 Glucose Ql (U) Negative [facility] Laboratory - UrinalysisOrder ed By: Dulce Villar on 02-26-2025 Protein Ql (U) Negative [facility] Director Information Office Visit Reporton 02-26-2025 Director Information Office Visit Report [facility] [address], [address] [place] [address] OFFICE VISIT Date of Service: 02/26/25 MR#: [id number] Acct: [id number] Name: SHIRA ARBOLEDA Rep #: [id number] : 1990 Provider: Dr. 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 Date Name GA/Weeks Outcome Route Bth Weight Gen Labor Lgth Anesthesia Del Locatn Provider FOSergio 03/21/18 Justin 40 live - full term 9lbs 7oz Male epidural [facility] S NGOZI Kilpatrick 06/12/19 Blaze-Quan by Tevin 40 live - full term 8lbs 8oz Male epidural [facility] Dr. Olena Kilpatrick 01/13/21 Isamar 40 live - full term 7lbs 6oz Female epidural [facility] Hafsa [place] Olena Finesse 07/10/24 elective Delivery Date: 03/21/18 Last Updated [...] Specific Issue/Nia (more content not included)... Normal [facility] Amphetamine detection with 1 000 ng/mL as cutoffOrdered By: Dulce Villar on 01-29-2025 Amphetamines Screen method >1000 ng/mL Ql (U) Negative < 200 ng/mL [facility] Laboratory - Chemistry and C hemistry - challengeOrdered By: Mary Madrigal on 01-29-2025 Glucose Ql (U) Negative [facility] Laboratory - UrinalysisOrder ed By: Mary Madrigal on 01-29-2025 Protein Ql (U) Negative [facility] No Panel InformationOrdered By: Dulce Villar on 01-29-2025 Urine Buprenorphine Qualitative Negative < 200 ng/mL [facility] Urine Oxycodone Screen Negative < 100 ng/mL [facility] Director Information Office Visit Reporton 01-29-2025 Director Information Office Visit Report [facility] [address], [address] [place] [address] OFFICE VISIT Date of Service: 01/29/25 MR#: [id number] Acct: [id number] Name: SHIRA ARBOLEDA Rep #: [id number] : 1990 Provider: SMITA Garcias ams Age/Sex: 34/F Location: [facility] [place] Status: Signed Intake Vital Signs 11/16/24 13:00 01/01/25 10:14 01/29/25 08:45 Height 5 ft 5 in 5 ft 5 in 5 ft 5 in Weight: 205 lb 4 oz BMI 34.1 BP 114/70 Intake Visit Reasons: 20 wk ob Chief Complaint: 20 Week OB 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 Required: No Is patient in pain?: No [...] mg-folate no.1 1 mg-dha 300 mg capsule (PNV-Garvin) hydroxyzine HCl 25 mg tablet 25 mg [...] current occupational status: employed 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 Date Name GA/Weeks Outcome Route Bth Weight Gen Labor Lgth Anesthesia Del Locatn Provider FOB 03/21/18 Justin 40 live - full term 9lbs 7oz Male epidural [facility] Natali Kilpatrick 06/12/19 Thakur-Goes by Tevin 40 live - full term 8lbs 8oz Male epidural [facility] Dr. Olena Kilpatrick 01/13/21 Isamar 40 live - full term 7lbs 6oz Female epidural [facility] Hafsa Kilpatrick 07/10/24 elective Delivery Date: 03/21/18 [...] control p (more content not included)... Normal [facility] Quantitative urine opiates m easurementOrdered By: Dulce Villar on 01-29-2025 Opiates Ql (U) Negative < 300 ng/mL [facility] Screening urine fentanyl bharti surementOrdered By: Dulce Villar on 01-29-2025 fentaNYL Screen Ql (U) Negative [facility] Urine Drug Screen (VISTA)on 01-29-2025 AMPHETAMINES Negative Normal <1000 ng/mL [facility] Comment on above: Order Comment: UNKNO WN Performed By: #### L 501.0900, L501.4405, L501.4100, L501.1400, L100.0500, L501.1105 #### [facility] [address] [place], [place], [id number] ([phone] BARBITIURATES Negative Normal < 200 ng/mL [facility] Comment on above: Order Comment: UNKNO WN Performed By: #### L 501.0900, L501.4405, L501.4100, L501.1400, L100.0500, L501.1105 #### [facility] [address] [place], [place], [id number] (792) BENZODIAZIPINE Negative Normal < 200 ng/mL [facility] Comment on above: Order Comment: UNKNO WN Performed By: #### L 501.0900, L501.4405, L501.4100, L501.1400, L100.0500, L501.1105 #### [facility] [address] [place], [address] BUP Ur Drug Scr Negative Normal < 200 ng/mL [facility] Comment on above: Order Comment: UNKNO WN Performed By: #### L 501.0900, L501.4405, L501.4100, L501.1400, L100.0500, L501.1105 #### [facility] [address] [place], [address] COCAINE Negative Normal < 300 ng/mL [facility] Comment on above: Order Comment: UNKNO WN Performed By: #### L 501.0900, L501.4405, L501.4100, L501.1400, L100.0500, L501.1105 #### [facility] [address] [place], [address] Fentanyl Negative Normal [facility] Comment on above: Order Comment: UNKNO WN Performed By: #### L 501.0900, L501.4405, L501.4100, L501.1400, L100.0500, L501.1105 #### [facility] [address] [place], [address] METHADONE Negative Normal < 300 ng/mL [facility] Comment on above: Order Comment: UNKNO WN Performed By: #### L 501.0900, L501.4405, L501.4100, L501.1400, L100.0500, L501.1105 #### [facility] [address] [place], [address] OPIATES Negative Normal < 300 ng/mL [facility] Comment on above: Order Comment: UNKNO WN Performed By: #### L 501.0900, L501.4405, L501.4100, L501.1400, L100.0500, L501.1105 #### [facility] [address] [place], [address] OXYCODONE Negative Normal < 100 ng/mL [facility] Comment on above: Order Comment: UNKNO WN Performed By: #### L 501.0900, L501.4405, L501.4100, L501.1400, L100.0500, L501.1105 #### [facility] [address] [place], [address] PCP Negative Normal < 25 ng/mL [facility] Comment on above: Order Comment: UNKNO WN Performed By: #### L 501.0900, L501.4405, L501.4100, L501.1400, L100.0500, L501.1105 #### [facility] [address] [place], [address] THC Negative Normal < 50 ng/mL [facility] Comment on above: Order Comment: UNKNO WN Performed By: #### L 501.0900, L501.4405, L501.4100, L501.1400, L100.0500, L501.1105 #### [facility] [address] [place], [address] Urine benzodiazepine levelOr dered By: Dulce Villar on 01-29-2025 Benzodiazepines Ql (U) Negative < 200 ng/mL [facility] Urine cocaine levelOrdered B y: Dulce Villar on 01-29-2025 Cocaine Ql (U) Negative < 300 ng/mL [facility] Urine xeekk-6-xmbgfqhibbfoxb abinol (THC) measurementOrdered By: Dulce Villar on 01-29-2025 Cannabinoids Screen Ql (U) Negative < 50 ng/mL [facility] Urine phencyclidine (PCP) de tectionOrdered By: Ducle Villar on 01-29-2025 Phencyclidine Ql (U) Negative < 25 ng/mL [facility] Director Information Office Visit Reporton 01-01-2025 Director Information Office Visit Report [facility], [address] [place] [address] OFFICE VISIT Date of Service: 01/01/25 MR#: [id number] Acct: [id number] Name: SHIRA ARBOLEDA Rep #: [id number] : 1990 Provider: Dr. 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 Date Name GA/Weeks Outcome Route Bth Weight Infant Gen Labor Lgth Anesthesia Del Locatn Provider FOSergio 03/21/18 Justin 40 live - full term 9lbs 7oz Male epidural [facility] Natali Kilpatrick 06/12/19 Blaze-Quan by Tevin 40 live - full term 8lbs 8oz Male epidural [facility] Dr. Olena Kilpatrick 01/13/21 Isamar 40 live - full term 7lbs 6oz Female epidural [facility] D vinnie Kilpatrick 07/10/24 elective Delivery Date: 03/21/18 Last [...] PP contro (more content not included)... Normal [facility] Urine Cultureon 12-06-2024 [facility] Urine Culture Urine Culture Urine Culture Streptococcus agalactiae (B) [place] Count 1000-10,000 Mixed Gram Positive Organisms Mixed Gram Positive Organisms MIXC Mixed contaminants. Submit a new specimen if indicated. Streptococcus agalactiae (B): REACTION cefTRIAXone Islt [place] <=0.12 Clindamycin.induced Susc Islt NEG Linezolid Islt [place] <=2 Vancomycin Islt [place] 0.5 S Normal [facility] Comment on above: Performed By: #### L 501.0900, L501.4405, L501.4100, L501.1400, L100.0500, L501.1105 #### [facility] [address] [facility] [place], [place], [address] Laboratory - Chemistry and C hemistry - challengeOrdered By: Dulce Villar on 12-03-2024 Bilirubin Ql (U) Negative [facility] Glucose Ql (U) Negative [facility] Ketones Ql (U) Negative [facility] pH (U) 6.0 [pH] [facility] Specific gravity (U) [Rel density] 1.020 [facility] Urobilinogen (U) [Mass/Vol] 0.9998455 mg/dL [facility] Laboratory - Hematology and Cell countsOrdered By: Dulce Villar on 12-03-2024 Hemoglobin Ql (U) Trace [facility] Laboratory - Specimen inform ationOrdered By: Dulce Villar on 12-03-2024 Clarity (U) Clear [facility] Color (U) YELLOW [facility] Laboratory - UrinalysisOrder ed By: Dulce Villar on 12-03-2024 Nitrite Ql (U) Negative [facility] Protein Ql (U) Negative [facility] No Panel InformationOrdered By: Dulce Villar on 12-03-2024 Urine Leukocytes Positive [facility] Urine Non-Hemolyzed Blood Trace [facility] Director Information Office Visit Reporton 12-03-2024 Director Information Office Visit Report [facility] [address], [address] [place] [address] OFFICE VISIT Date of Service: 12/03/24 MR#: [id number] Acct: [id number] Name: SHIRA ARBOLEDA Rep #: [id number] : 1990 Provider: Dr. 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 Date Name GA/Weeks Outcome Route Bth Weight Infant Gen Labor Lgth Anesthesia Del Locatn Provider FOB 03/21/18 Justin 40 live - full term 9lbs 7oz Male epidural [facility] S NGOZI Kilpatrick 06/12/19 Thakur-Goes by Tevin 40 live - full term 8lbs 8oz Male epidural [facility] Dr. Olena Kilpatrick 01/13/21 Isamar 40 live - full term 7lbs 6oz Female epidural [facility] Hafsa Kilpatrick 07/10/24 elective Delivery Date: 03/21/18 [...] Issue/Plans Co (more content not included)... Normal [facility] Urine cultureOrdered By: Javier Villar on 12-03-2024 Bacteria identified Cx Nom (U) Streptococcus agalactiae (B) Abnormal [facility] Bacteria identified Cx Nom (U) Positive Abnormal [facility] L3890.6102on 11-18-2024 HEP B Surf Ag Non-Reactive Normal Nonreactive [facility] Comment on above: Result Comment: Reac tive: Presumptive evidence of HBV. Repeatedly reactive samples must be confirmed using a neutralization test ([employer] HBsAg Confirmatory Test) Non-Reactive: HBsAg not detected; does not exclude the possibility of exposure to HBV Performed By: #### L 501.0900, L501.4405, L501.4100, L501.1400, L100.0500, L501.1105 #### [facility] [address] [place], [address] Absolute lymphocyte countOrd ered By: Dulce Villar on 11-16-2024 Lymphocytes Auto (Unsp spec) [#/Vol] 2.57 10*3/uL 0.83-4.51 [facility] Absolute neutrophil countOrd ered By: Dulce Villar on 11-16-2024 Neutrophils (Bld) [#/Vol] 6.4 10*3/uL 2.0-7.7 [facility] Automated lymphocyte count a s percentage of total leukocytesOrdered By: Dulce Villar on 11-16-2024 Lymphocytes/100 WBC Auto (Unsp spec) 26.5 % 19-41 [facility] Basophil percentageOrdered B y: Dulce Villar on 11-16-2024 Basophils/100 WBC (Bld) 0.2 % 0-1 [facility] CBC W/Diff, Automatedon 11-05 Absolute Lymph 2.57 X10 3/uL Normal 0.83-4.51 [facility] Comment on above: Performed By: #### L 501.0900, L501.4405, L501.4100, L501.1400, L100.0500, L501.1105 #### [facility] [address] [place], [address] Absolute Neut 6.4 X10 3/uL Normal 2.0-7.7 [facility] Comment on above: Performed By: #### L 501.0900, L501.4405, L501.4100, L501.1400, L100.0500, L501.1105 #### [facility] [address] [place], [address] Basophils/100 WBC (Bld) 0.2 % Normal 0-1 [facility] Comment on above: Performed By: #### L 501.0900, L501.4405, L501.4100, L501.1400, L100.0500, L501.1105 #### [facility] [address] [place], [address] Eosinophils/100 WBC (Bld) 0.6 % Normal 0-5 [facility] Comment on above: Performed By: #### L 501.0900, L501.4405, L501.4100, L501.1400, L100.0500, L501.1105 #### [facility] [address] [place], [address] Erythrocyte distribution width (RBC) [Ratio] 12.2 % Normal 11.6-14.6 [facility] Comment on above: Performed By: #### L 501.0900, L501.4405, L501.4100, L501.1400, L100.0500, L501.1105 #### [facility] [address] [place], [address] Hematocrit (Bld) [Volume fraction] 39.2 % Normal 37-47 [facility] Comment on above: Performed By: #### L 501.0900, L501.4405, L501.4100, L501.1400, L100.0500, L501.1105 #### [facility] [address] [place], [address] Hemoglobin (Bld) [Mass/Vol] 13.1 g/dL Normal 12.0-15.0 [facility] Comment on above: Performed By: #### L 501.0900, L501.4405, L501.4100, L501.1400, L100.0500, L501.1105 #### [facility] [address] [place], [address] IG% 0.400 Normal 0.0-0.9 [facility] Comment on above: Result Comment: IG% - Immature Granulocytes (promyelocytes, myelocytes and metamyelocytes) > 1% indicates that a LEFT SHIFT is Present. Performed By: #### L 501.0900, L501.4405, L501.4100, L501.1400, L100.0500, L501.1105 #### [facility] [address] [place], [address] Lymphocytes/100 WBC (Bld) 26.5 % Normal 19-41 [facility] Comment on above: Performed By: #### L 501.0900, L501.4405, L501.4100, L501.1400, L100.0500, L501.1105 #### [facility] [address] [place], [address] MCH (RBC) [Entitic mass] 29.0 pg Normal 27.0-32.0 [facility] Comment on above: Performed By: #### L 501.0900, L501.4405, L501.4100, L501.1400, L100.0500, L501.1105 #### [facility] [address] [place], [address] MCHC (RBC) [Mass/Vol] 33.4 g/dL Normal 32-36 [facility] Comment on above: Performed By: #### L 501.0900, L501.4405, L501.4100, L501.1400, L100.0500, L501.1105 #### [facility] [address] [place], [address] MCV (RBC) [Entitic vol] 86.7 fL Normal 81-99 [facility] Comment on above: Performed By: #### L 501.0900, L501.4405, L501.4100, L501.1400, L100.0500, L501.1105 #### [facility] [address] [place], [address] Monocytes/100 WBC (Bld) 6.5 % Normal 0-10 [facility] Comment on above: Performed By: #### L 501.0900, L501.4405, L501.4100, L501.1400, L100.0500, L501.1105 #### [facility] [address] [place], [address] Neutrophils/100 WBC (Bld) 65.8 % Normal 47-70 [facility] Comment on above: Performed By: #### L 501.0900, L501.4405, L501.4100, L501.1400, L100.0500, L501.1105 #### [facility] [address] [place], [address] Nucleated RBC (Bld) [#/Vol] 0 10*3/uL Normal 0-5 [facility] System Comment on above: Performed By: #### L 501.0900, L501.4405, L501.4100, L501.1400, L100.0500, L501.1105 #### [facility] [address] [place], [address] Platelet mean volume (Bld) [Entitic vol] 9.6 fL Normal 6.2-12.0 [facility] Comment on above: Performed By: #### L 501.0900, L501.4405, L501.4100, L501.1400, L100.0500, L501.1105 #### [facility] [address] [place], [address] Platelets (Bld) [#/Vol] 239 10*3/uL Normal 150-450 [facility] Comment on above: Performed By: #### L 501.0900, L501.4405, L501.4100, L501.1400, L100.0500, L501.1105 #### [facility] [address] [place], [address] RBC (Bld) [#/Vol] 4.52 10*6/uL Normal 4.2-5.4 [facility] Comment on above: Performed By: #### L 501.0900, L501.4405, L501.4100, L501.1400, L100.0500, L501.1105 #### [facility] [address] [place], [address] (051) RDW SD 38.4 fl Normal 35.1-43.9 [facility] Comment on above: Performed By: #### L 501.0900, L501.4405, L501.4100, L501.1400, L100.0500, L501.1105 #### [facility] [address] [place], [address] (027) WBC (Bld) [#/Vol] 9.7 10*3/uL Normal 4.4-11.0 [facility] Comment on above: Performed By: #### L 501.0900, L501.4405, L501.4100, L501.1400, L100.0500, L501.1105 #### [facility] [address] [place], [address] (231) Eosinophil percentageOrdered By: Dulce Villar on 11-16-2024 Eosinophils/100 WBC (Bld) 0.6 % 0-5 [facility] Erythrocyte distribution wid th ratioOrdered By: Dulce Villar on 11-16-2024 Erythrocyte distribution width (RBC) [Ratio] 12.2 % 11.6-14.6 [facility] Erythrocyte distribution wid th standard deviationOrdered By: Dulce Villar on 11-16-2024 Erythrocyte distribution width (RBC) [Ratio] 38.4 fl 35.1-43.9 [facility] HIVon 11-16-2024 HIV Non-Reactive Normal Nonreactive [facility] Comment on above: Result Comment: Non- Reactive Reactive Repeatedly reactive samples must be confirmed according to CDC recommended confirmatory algorithms. The subresults for either HIVAG or AHIV can be used as an aid in the selection of the confirmation algorithm for reactive samples. Send out specimens with Reactive results to [facility] for confirmation. Order the HIV antibody detection and differentiation: lc#[id number] Performed By: #### L 501.0900, L501.4405, L501.4100, L501.1400, L100.0500, L501.1105 #### [facility] [address] [place], [place], [id number] Hematocrit Auto (Bld) [Volum e fraction]Ordered By: Dulce Villar on 11-16-2024 Hematocrit (Bld) [Volume fraction] 39.2 % 37-47 [facility] Hemoglobin measurementOrdere d By: Dulce Villar on 11-16-2024 Hemoglobin (Bld) [Mass/Vol] 13.1 g/dL 12.0-15.0 [facility] Hepatitis C Antibodyon 11-16 Hepatitis C Ab Non-Reactive Normal Nonreactive [facility] Comment on above: Result Comment: Reac tive: Presumptive evidence of antibodies to HCV. Follow CDC recommendations for supplemental testing. Non-Reactive: Antibodies to HCV were not detected; does not exclude the possibility of exposure to HCV Reactive Results are presumptive evidence of antibodies to HCV. Follow CDC recommendations for supplemental testing. Order confirmation testing: HCV Quant by PCR testing - HCVPCR #[id number] Non Reactive: < 0.8 Equivocal: >/= 0.8 to < 1.0 Reactive: >/= 1.0 The CDC requires that a reactive/equivocal HCV antibody result be sent out for confirmation. HCV Quant by PCR testing. Performed By: #### L 501.0900, L501.4405, L501.4100, L501.1400, L100.0500, L501.1105 #### [facility] [address] [place], [place], [id number] Immature granulocytes/100 WB C Auto (Bld)Ordered By: Dulce Villar on 11-16-2024 Immature granulocytes/100 WBC (Bld) 0.400 % 0.0-0.9 [facility] Comment on above: IG% - Immature Granu locytes (promyelocytes, myelocytes and metamyelocytes) > 1% indicates that a LEFT SHIFT is Present. L509.4006on 11-16-2024 Rubella IgG REAC Normal Nonreactive [facility] Comment on above: Result Comment: Anti body Result: Interpretation Non-Reactive: Non-Immune Reactive: Immune The following results were obtained with the [employer] Rubella IgG assay. Results from assays of other manufacturers cannot be used interchangeably. Performed By: #### L 501.0900, L501.4405, L501.4100, L501.1400, L100.0500, L501.1105 #### [facility] [address] [place], [address] Laboratory - Chemistry and C hemistry - challengeOrdered By: Dulce Villar on 11-16-2024 Glucose Ql (U) Negative [facility] - Microbiology an d Antimicrobial susceptibilityOrdered By: Dulce Villar on 11-16-2024 HBV surface Ag Ql (S) Non-Reactive Nonreactive [facility] Comment on above: Reactive: Presumptiv e evidence of HBV. Repeatedly reactive samples must be confirmed using a neutralization test ([employer] HBsAg Confirmatory Test)Non-Reactive: HBsAg not detected; does not exclude the possibility of exposure to HBV Laboratory - UrinalysisOrder ed By: Dulce Villar on 11-16-2024 Protein Ql (U) Negative [facility] MCV (mean corpuscular volume ) determinationOrdered By: Dulce Villar on 11-16-2024 MCV (RBC) [Entitic vol] 86.7 fL 81-99 [facility] Mean corpuscular hemoglobin (MCH) determinationOrdered By: uDlce Villar on 11-16-2024 MCH (RBC) [Entitic mass] 29.0 pg 27.0-32.0 [facility] Mean corpuscular hemoglobin concentration (MCHC) determinationOrdered By: Dulce Villar on 11-16-2024 MCHC (RBC) [Mass/Vol] 33.4 g/dL 32-36 [facility] Mean platelet volume determi nationOrdered By: Dulce Villar on 11-16-2024 Platelet mean volume (Bld) [Entitic vol] 9.6 fL 6.2-12.0 [facility] Monocyte percentageOrdered B y: Dulce Villar on 11-16-2024 Monocytes/100 WBC (Bld) 6.5 % 0-10 [facility] NATERAon 11-16-2024 NATURA SEE SCANNED REPORT Normal [facility] Comment on above: Performed By: #### L 501.0900, L501.4405, L501.4100, L501.1400, L100.0500, L501.1105 #### [facility] [address] [place], [address] Neutrophil percentageOrdered By: Dulce Villar on 11-16-2024 Neutrophils/100 WBC (Bld) 65.8 % 47-70 [facility] No Panel InformationOrdered By: Dulce Villar on 11-16-2024 HIV (1&2) Antibody Non-Reactive Nonreactive [facility] Comment on above: Non-ReactiveReactive Repeatedly reactive samples must be confirmed according to CDC recommended confirmatory algorithms. The subresults for either HIVAG or AHIV can be used as an aid in the selection of the confirmation algorithm for reactive samples.Send out specimens with Reactive results to [facility] for confirmation.Order the HIV antibody detection and differentiation: #[id number] Nucleated red blood cell per centageOrdered By: Dulce Villar on 11-16-2024 Nucleated RBC/100 WBC (Bld) [Ratio] 0 % 0-5 [facility] Director Information Office Visit Reporton 11-16-2024 Director Information Office Visit Report [facility] [address], [address] [place] [address] OFFICE VISIT Date of Service: 11/16/24 MR#: [id number] Acct: [id number] Name: SHIRA ARBOLEDA Rep #: [id number] : 1990 Provider: Dr. 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 Date Name GA/Weeks Outcome Route Bth Weight Infant Gen Labor Lgth Anesthesia Del Locatn Provider FOB 03/21/18 Justin 40 live - full term 9lbs 7oz Male epidural [facility] Natali Kilpatrick 06/12/19 Thakur-Goes by Tevin 40 live - full term 8lbs 8oz Male epidural [facility] Dr. Olena Kilpatrick 01/13/21 Isamar 40 live - full term 7lbs 6oz Female epidural [facility] Hafsa Kilpatrick 07/10/24 elective Delivery Date: 03/21/18 [...] list review (more content not included)... Normal [facility] Platelet countOrdered By: Paolo Villar on 11-16-2024 Platelets (Bld) [#/Vol] 239 10*3/uL 150-450 [facility] RBC Auto (Bld) [#/Vol]Ordere d By: Dulce Villar on 11-16-2024 RBC (Bld) [#/Vol] 4.52 10*6/uL 4.2-5.4 [facility] Syphilis Antibodieson 2024 Syphilis Abs Non-Reactive Normal Nonreactive [facility] Comment on above: Performed By: #### L 501.0900, L501.4405, L501.4100, L501.1400, L100.0500, L501.1105 #### [facility] [address] [place], [place], [id number] Type AND Screenon 11-16-2024 Ab SCREEN GEL Negative Normal [facility] Comment on above: Order Comment: PN Performed By: #### L 501.0900, L501.4405, L501.4100, L501.1400, L100.0500, L501.1105 #### [facility] [address] [place], [place], [address] White blood cell (WBC) count Ordered By: Dulce Villar on 11-16-2024 WBC (Bld) [#/Vol] 9.7 10*3/uL 4.4-11.0 [facility] Chlamydia/GC CARRIE aptimaon CHLAMY,NUC ACID Negative Normal Negative [facility] Comment on above: Performed By: #### L 501.0900, L501.4405, L501.4100, L501.1400, L100.0500, L501.1105 #### [facility] [address] [place], [place], [address] GC BY NUC ACID Negative Normal Negative [facility] Comment on above: Result Comment: Perf ormed at: =G - [facility] [place] [address] [place], [place] [id number] [employer] Supervisor: Faby Leyva MD, Phone: [phone] Performed By: #### L 501.0900, L501.4405, L501.4100, L501.1400, L100.0500, L501.1105 #### [facility] [address] [place], [place], [address] Urine Cultureon 11-08-2024 [facility] Clinical correlation necessary, Possible skin contamination. Urine Culture Presumptive Lactobacillus sp. [place] Count 50,000-80,000 Normal [facility] Comment on above: Performed By: #### L 501.0900, L501.4405, L501.4100, L501.1400, L100.0500, L501.1105 #### [facility] [address] [place], [place], [address] Chlamydia trachomatis rRNA d etection by probe and target amplification methodOrdered By: Dulce Villar on 11-06-2024 C. trachomatis rRNA CARRIE+probe Ql (Unsp spec) Negative Negative [facility] Neisseria gonorrhoeae nuclei c acid detection by amplified probe techniqueOrdered By: Dulce Villar on 11-06-2024 N. gonorrhoeae DNA CARRIE+probe Ql (Unsp spec) Negative Negative [facility] Comment on above: Performed at: =G - [facility] [address] [id number] Director: Faby Leyva MD, Phone: [phone] Director Information Office Visit Reporton 11-06-2024 Director Information Office Visit Report [facility]'[address], [address] [place] [address] OFFICE VISIT Date of Service: 11/06/24 MR#: [id number] Acct: [id number] Name: SHIRA ARBOLEDA Rep #: [id number] : 1990 Provider: Dr. 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 [employer] current occupational exposures/hazards: No pets and animals: No history of recent travel: Yes ([place], [place], [place], [facility]) out of state: Yes out of [...] physical activity do you participate in: none naomi/judaism: None seatbelt use: always do you feel safe at home: Yes additional social history: FOB/BF - Chintan 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 Date Name GA/Weeks Outcome Route Bth Weight Infant Gen Labor Lgth Anesthesia Del Locatn Provider FOB 03/21/18 Justin 40 live - full term 9lbs 7oz Male epidural [facility] S NGOZI Kilpatrick 06/12/19 Thakur-Goes by Tevin 40 live - full term 8lbs 8oz Male epidural [facility] Dr. Olena Kilpatrick 01/13/21 Isamar 40 live - full term 7lbs 6oz Female epidural [facility] Hafsa Kilpatrick 07/10/24 elective Delivery Date: 03/21/18 [...] 170 -???-?? (more content not included)... Normal [facility] Urine cultureOrdered By: Javier Villar on 11-06-2024 Bacteria identified Cx Nom (U) Presumptive Lactobacillus sp. Abnormal [facility] Director Information Office Visit Reporton 09-01-2024 Director Information Office Visit Report [facility]'s [address], [address] [place] [address] OFFICE VISIT Date of Service: 09/01/24 MR#: [id number] Acct: [id number] Name: SHIRA ARBOLEDA Rep #: [id number] : 1990 Provider: Dr. 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 pets and animals: No history of recent [...] safe at home: Yes additional social history: FOB/PEG - Chintan Ripple: [employer] Prescription Eyeglass Maker HPI FU AFTER PREGNANY TERINMATION Details: SHIRA [...] - full term 9lbs 7oz Male epidural [facility] S NGOZI Kilpatrick 06/12/19 Tevin 40 live - full term 8lbs 8oz Male epidural [facility] Hafsa Kilpatrick 01/13/21 Isamar 40 live - full term 7lbs 6oz Female epidural [facility] Hafsa Kilpatrick 07/10/24 elective Delivery Date: 03/21/18 [...] acute distress and well developed Orientation: alert HENMT Head: normal to inspection and normocephalic Ears: [...] Z33.2 Assessmen (more content not included)... Normal [facility] Thyroidon 07-20-[address] [facility] Imaging Services [address] [place] [address] Thyroid MR#: [id number] Acct: [id number] Name: SHIRA ARBOLEDA Rep #: [id number] : 1990 F 34 From: Helder Pereyra PCP: Dr. Braulio Bosch MD Status: REG CLI Study: Thyroid Date of Exam: 07/20/24 Exam# [id number] Ordering Dr: Dulce Villar [id number] INDICATION: thyromegaly EXAMINATION: Ultrasound US Thyroid (eg [...] Braulio Bosch MD; Dr. Dulce Villar MD Door To Door Selling Agent: Signed Normal [facility] Chlamydia/GC CARRIE aptimaon CHLAMY,NUC ACID Negative Normal Negative [facility] Comment on above: Performed By: #### L 501.0900, L501.4405, L501.4100, L501.1400, L100.0500, L501.1105 #### [facility] [address] [place], [address] GC BY NUC ACID Negative Normal Negative [facility] Comment on above: Result Comment: Perf ormed at: =G - [facility] [address] [place] [id number] [employer] Supervisor: Faby Leyva MD, Phone: [phone] Performed By: #### L 501.0900, L501.4405, L501.4100, L501.1400, L100.0500, L501.1105 #### [facility] [address] [place], [address] Urine Cultureon 07-05-2024 [facility] Staphylococcus saprophyticus urine sensitivities are not recommended per CLSI guidelines. Treatment with Nitrofurantoin, Trimethoprim/Sulfa or a Fluroquinolone is suggested. Staphylococcus saprophyticus [place] Count 80,000-100,000 Staphylococcus saprophyticus: REACTION Doxycycline Islt [place] <=0.5 Clindamycin.induced Susc Islt NEG Gentamicin Islt [place] <=0.5 S Linezolid Islt [place] 4 S Nitrofurantoin Islt [place] <=16 S Oxacillin Susc Islt 2 R Tetracycline Islt [place] <=1 S TMP SMX Islt [place] <=10 S Vancomycin Islt [place] 1 S Normal [facility] Comment on above: Performed By: #### L 501.0900, L501.4405, L501.4100, L501.1400, L100.0500, L501.1105 #### [facility] [address] [place], [address] Director Information Office Visit Reporton 07-03-2024 Director Information Office Visit Report [facility]'s [address], [address] [place] [address] OFFICE VISIT Date of Service: 07/03/24 MR#: [id number] Acct: [id number] Name: SHIRA ARBOLEDA Rep #: [id number] : 1990 Provider: Dr. 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 Date Name GA/Weeks Outcome Route Bth Weight Gen Labor Lgth Anesthesia Del Locatn Provider FOB 03/21/18 Justin 40 live - full term 9lbs 7oz Male epidural [facility] S NGOZI Kilpatrick 06/12/19 Tevin 40 live - full term 8lbs 8oz Male epidural [facility] D vinnie Kilpatrick 01/13/21 Isamar 40 live - full term 7lbs 6oz Female epidural [facility] Hafsa Kilpatrick Delivery Date: 03/21/18 Last Updated [...] Chromosome Abnormality: (more content not included)... Normal [facility] Serum or plasma choriogonado tropin detectionOrdered By: Ashlyn Paredes on 04-26-2023 HCG ( test) Ql < 1 mIU/mL <4 [facility] Comment on above: hCG levels with Gest ational AgeGestational Age hCG mIU/mL (IU/L)0.2 - 1 week 5 - 501-2 weeks 50 - 5002-3 weeks 100 - 09904-1 weeks 500 - 177791-8 weeks 1000 - 157197-8 weeks 67917 - 100,0006-8 weeks 18273 - 200,0002-3 months 25757 - 100,000 Absolute lymphocyte counton 07-03-2022 Lymphocytes Auto (Unsp spec) [#/Vol] 1.89 10*3/uL 0.83-4.51 [facility] Work Phone: Basophil percentageon 2021 Basophils/100 WBC (Bld) 0.3 % 0-1 [facility] Work Phone: Bilirubin [Mass/Vol] 0.40 mg/dL 0.20-1.00 [facility] Work Phone: Comment on above: For patients on eltr ombopag therapy, use of Dimension Jenkins TBIL is not recommended. Chloride [Moles/Vol] 104 mmol/L 98-107 [facility] Work Phone: Eosinophils/100 WBC (Bld) 0.6 % 0-5 [facility] Work Phone: Glucose [Mass/Vol] 99 mg/dL 74-106 [facility] Work Phone: Neutrophils (Bld) [#/Vol] 8.0 10*3/uL 2.0-7.7 [facility] Work Phone: Neutrophils/100 WBC (Bld) 75.4 % 47-70 [facility] Work Phone: Potassium [Moles/Vol] 3.7 mmol/L 3.5-5.1 [facility] Work Phone: Protein [Mass/Vol] 7.7 g/dL 6.4-8.2 [facility] Work Phone: Sodium [Moles/Vol] 138 mmol/L 136-145 [facility] Work Phone: WBC (Bld) [#/Vol] 10.6 10*3/uL 4.4-11.0 [facility] Work Phone: Blood erythrocytes count (nu mber/volume)on 07-03-2022 RBC (Bld) [#/Vol] 4.64 10*6/uL 4.2-5.4 [facility] Work Phone: Blood hemoglobin measurement (mass/volume)on 07-03-2022 Hemoglobin (Bld) [Mass/Vol] 14.1 g/dL 12.0-15.0 [facility] Work Phone: Blood lymphocytes/100 leukoc yteson 07-03-2022 Lymphocytes/100 WBC (Bld) 17.8 % 19-41 [facility] Work Phone: Blood monocytes/100 leukocyt eson 07-03-2022 Monocytes/100 WBC (Bld) 5.4 % 0-10 [facility] Work Phone: Blood platelet mean volumeon 07-03-2022 Platelet mean volume (Bld) [Entitic vol] 10.3 fL 6.2-12.0 [facility] Work Phone: [phone] Determination of erythrocyte mean corpuscular volume (MCV)on 07-03-2022 MCV (RBC) [Entitic vol] 91.6 fL 81-99 [facility] Work Phone: Erythrocyte sedimentation ra efrain 07-03-2022 ESR (Bld) [Velocity] 19 mm/h 0-30 [facility]: Hematocrit Auto (Bld) [Volum e fraction]on 07-03-2022 Hematocrit (Bld) [Volume fraction] 42.5 % 37-47 [facility] Work Phone: [phone] Iron measurement (mass/mass) on 07-03-2022 Iron (Unsp spec) [Mass/Mass] 21 ug/dL 50-170 [facility] Work Phone: [phone] Laboratory - Chemistry and C hemistry - challengeon 07-03-2022 ALP [Catalytic activity/Vol] 101 U/L 45-117 [facility] Work Phone: ALT [Catalytic activity/Vol] 27 U/L 13-56 [facility] Work Phone: CO2 [Moles/Vol] 27.0 mmol/L 21.0-32.0 [facility] Work Phone: Cobalamin (Vitamin B12) [Mass/Vol] 571 pg/mL 211-911 [facility] Work Phone: Globulin (S) [Mass/Vol] 3.8 g/dL 2.2-4.2 [facility] Work Phone: Urea nitrogen/Creatinine [Mass ratio] 14.0 mg/mg 10-20 [facility] Work Phone: Laboratory - Hematology and Cell countson 07-03-2022 Erythrocyte distribution width (RBC) [Entitic vol] 39.7 fL 35.1-43.9 [facility] Work Phone: Erythrocyte distribution width (RBC) [Ratio] 12.0 % 11.6-14.6 [facility] Work Phone: Immature granulocytes/100 WBC (Bld) 0.500 % 0.0-0.9 [facility] Work Phone: Comment on above: IG% - Immature Granu locytes (promyelocytes, myelocytes and metamyelocytes) > 1% indicates that a LEFT SHIFT is Present. MCH (RBC) [Entitic mass] 30.4 pg 27.0-32.0 [facility] Work Phone: Nucleated RBC/100 WBC (Bld) [Ratio] 0 % 0-5 [facility] Work Phone: MCHC Auto (RBC) [Mass/Vol]on 07-03-2022 MCHC (RBC) [Mass/Vol] 33.2 g/dL 32-36 [facility] Work Phone: No Panel Informationon 07-03 Anti-Nuclear Antibody Screen Positive Negative [facility] Work Phone: Comment on above: Performed at: [place] [id number] Director: Stevo Moeller PhD, Phone: [phone] Estimated GFR (MDRD) Amer 123 mL/min >60 [facility] Work Phone: Comment on above: GFR Calc Estimated GFR (MDRD) Non-Af Amer 102 mL/min >60 [facility] Work Phone: Comment on above: Non- GFR Calc Thyroid Stimulating Hormone (TSH) 0.56 uIU/mL 0.358-3.74 [facility] Work Phone: Vitamin D 25-Hydroxy 30.0 ng/mL [facility] Work Phone: Comment on above: Vitamin D 25(OH) Sta tus Range Deficiency <20 ng/mL (50nmol/L) Insufficiency 20 - 30 ng/mL (50 - 75 nmol/L) Sufficiency 30 - 100 ng/mL (75 - 250 nmol/L) Toxicity >100 ng/mL (>250 nmol/L) Platelets bldon 07-03-2022 Platelets (Bld) [#/Vol] 231 10*3/uL 150-450 [facility] Work Phone: Serum nuclear antibody titer by immunofluorescenceon 07-03-2022 Nuclear Ab IF (S) [Titer] See comment [facility] Work Phone: Comment on above: TEST RESULT LIMITSAn tinuclear Antibodies, IFA Positive Abnormal Negative <1:80 Borderline 1:80 Positive >1:80Speckled Pattern 1:80 ICAP nomenclature: AC-2,4,5,29Note: For more information about Hep-2 cell patterns use[employer]ieo [email or web address], the official website for the InternationalConsensus on Antinuclear Antibody (LAURA) Patterns (ICAP). -----A positive LAURA result may occur in healthy individuals (lowtiter) or be associated with a variety of diseases. Seeinterpretation chart which is not all inclusive:Pattern Antigen Detected Suggested Disease Association Homogeneous DNA(ds,ss), SLE - High titers Nucleosomes, Histones Drug-induced SLE Speckled Sm, SHACTOR, SCL-70, SLE,MCTD,PSS (diffuse form), SS-A/SS-B Sjogrens Nucleolar SCL-70, PM-1/SCL High titers Scleroderma, PM/DM Centromere Centromere PSS (limited form) w/Crest syndrome variable Nuclear Dot [id number] Primary Biliary Cirrhosis Nuclear GP210, Primary Biliary CirrhosisMembrane betsey A,B,C TESTING PERFORMED AT [facility]. ORIGINAL REPORT ON FILE IN LAB CONTAINS ADDITIONAL TEST SITE INFORMATION. Serum or plasma C reactive p rotein measurement (mass/volume)on 07-03-2022 CRP [Mass/Vol] 42.90 mg/L 0.0-3.0 [facility] Work Phone: Comment on above: C-Reactive Protein ( CRP) provides useful information for thediagnosis, therapy and monitoring of inflammatory processesand associated diseases. For the evaluation of Relative Riskfor Cardiovascular Disease, a High Sensitivity CRP (HSCRP)should be ordered. Serum or plasma albumin chaitanya urement (mass/volume)on 07-03-2022 Albumin [Mass/Vol] 3.9 g/dL 3.2-5.0 [facility] Work Phone: Serum or plasma albumin/glob ulin mass ratioon 07-03-2022 Albumin/Globulin [Mass ratio] 1.0 {ratio} 0.9-2.4 [facility] Work Phone: Serum or plasma calcium chaitanya urement (mass/volume)on 07-03-2022 Calcium [Mass/Vol] 8.7 mg/dL 8.5-10.1 [facility] Work Phone: Serum or plasma creatinine m easurement (mass/volume)on 07-03-2022 Creatinine [Mass/Vol] 0.71 mg/dL 0.55-1.02 [facility] Work Phone: Comment on above: The validity of the calculated GFR & GFRAA in patients over 70 years has not been determined. Clinical correlation is essential. Serum or plasma urea nitroge n measurement (mass/volume)on 07-03-2022 Urea nitrogen [Mass/Vol] 10 mg/dL 7-18 [facility] Work Phone: Serum rheumatoid factor dete ctionon 07-03-2022 Rheumatoid factor Ql (S) < 10.0 IU/mL <15 [facility] Work Phone: Thin prep Papanicolaou smear with manual screeningon 07-03-2022 Thin prep Papanicolaou smear with manual screening 13 U/L 15-37 [facility] Work Phone: Thin prep Papanicolaou smear with manual screening 7 5-15 [facility] Work Phone: Basophil percentageon 10-27- 2022 Cholesterol [Mass/Vol] 178 mg/dL <200 [facility] Work Phone: Comment on above: <200 mg/dL Desirable 200-240 mg/dL Borderline >240 mg/dL High Risk Glucose [Mass/Vol] 87 mg/dL 74-106 [facility] Work Phone: Triglyceride [Mass/Vol] 70 mg/dL <199 [facility] Work Phone: Comment on above: The drugs N-Acetylcy steine and Metamizole may falsely depress this assay.Serum Triglycerides Reference Interval Normal <150 mg/dL Borderline high 150 - 199 mg/dL High 200 - 499 mg/dL Very High > or = 500 mg/dL Laboratory - Chemistry and C hemistry - challengeon 05-03-2022 Free T4 [Mass/Vol] 0.87 ng/dL 0.76-1.46 [facility] Work Phone: No Panel Informationon 05-03 Miscellaneous Test Comment MAILED SPECIMEN [facility] Work Phone: Thyroid Stimulating Hormone (TSH) 1.01 uIU/mL 0.358-3.74 [facility] Work Phone: Vitamin D 25-Hydroxy 36.8 ng/mL [facility] Work Phone: Comment on above: Vitamin D 25(OH) Sta tus Range Deficiency <20 ng/mL (50nmol/L) Insufficiency 20 - 30 ng/mL (50 - 75 nmol/L) Sufficiency 30 - 100 ng/mL (75 - 250 nmol/L) Toxicity >100 ng/mL (>250 nmol/L) Serum or plasma cholesterol in HDL measurement (mass/volume)on 05-03-2022 Cholesterol in HDL [Mass/Vol] 47 mg/dL >40 [facility] Work Phone: Comment on above: The drugs N-Acetylcy steine and Metamizole may falsely depress this assay. Reference Range HDL <40 mg/dL Low HDL Cholesterol HDL >or= 60 mg/dL High HDL Cholesterol Serum or plasma cholesterol in VLDL measurement (mass/volume)on 05-03-2022 Cholesterol in VLDL [Mass/Vol] 14 mg/dL 5-40 [facility] Work Phone: Serum or plasma low density lipoprotein (LDL) cholesterol measurement (mass/volume)on 05-03-2022 Cholesterol in LDL [Mass/Vol] 117 mg/dL 0-130 [facility] Work Phone: CNOVon 12-09-2018 CNOV Office Visit (UCWSTR ) -------- SHIRA ARBOLEDA ([id number]) 1990 F Date Time Provider Department 12/09/18 8:45 PM [facility] During your visit today, we recorded the [...] by PINA SOLIS MA on 12/10/18 Normal [facility] Vital Signs Date Time Vital Sign Value Performing Clinician Saskiai lyla 05-02-2025 09:23-0400 Diastolic blood pressure 68 mm[Hg] Dr. Braulio Bosch MD Work Phone: 9(088)495-945113 [address] 05-02-2025 09:23-0400 Heart rate 85 /min Dr. Braulio Bosch MD Work Phone: 8(028)097-646836 [place] [address] 05-02-2025 09:23-0400 SaO2% (BldA) [Mass fraction] 97 % Dr. Braulio Bosch MD Work Phone: 1(308)193-441836 [place] [address] 05-02-2025 09:23-0400 Systolic blood pressure 112 mm[Hg] Dr. Braulio Bosch MD Work Phone: 5(342)956-327036 [place] [address] 05-02-2025 00:24-0400 Body height 167.[address] Braulio Bosch MD Work Phone: 0(411)827-839936 [place] [address] 05-02-2025 00:24-0400 Body mass index (BMI) [Ratio] 38.5 kg/m2 Dr. Braulio Bosch MD Work Phone: 8(884)177-607136 [place] [address] 05-02-2025 00:24-0400 Body weight 108.[address] Braulio Bosch MD Work Phone: 5(612)845-489336 [place] [address] 05-02-2025 00:09-0400 Body temperature 97.9 [degF] Dr. Braulio Bosch MD Work Phone: 2(621)762-155136 [place] [address] 05-02-2025 00:09-0400 Respiratory rate 14 /min Dr. Braulio Bosch MD Work Phone: 7(881)537-621536 [place] [address] 04-23-2025 15:32-0400 Body mass index (BMI) [Ratio] 39.2 kg/m2 Dr. Braulio Bosch MD Work Phone: 1(574)211-372936 [place] [address] 04-23-2025 15:32-0400 Body weight 106.[address] Braulio Bosch MD Work Phone: 4(811)655-043436 [place] [address] 04-23-2025 15:32-0400 Diastolic blood pressure 72 mm[Hg] Dr. Braulio Bosch MD Work Phone: [facility] 04-23-2025 15:32-0400 Systolic blood pressure 106 mm[Hg] Dr. Braulio Bosch MD Work Phone: 0(035)195-989638 [place] [address] 04-08-2025 13:03-0400 Body height 165.[address] Braulio Bosch MD Work Phone: 9(317)126-198136 [place] [address] 04-08-2025 13:03-0400 Body mass index (BMI) [Ratio] 37.7 kg/m2 Dr. Braulio Bosch MD Work Phone: 4(861)624-009436 [place] [address] 04-08-2025 13:03-0400 Body weight 102.[address] Braulio Bosch MD Work Phone: 3(430)492-173036 [place] [address] 04-08-2025 13:03-0400 Diastolic blood pressure 77 mm[Hg] Dr. Braulio Bosch MD Work Phone: 6(474)823-180636 [place] [address] 04-08-2025 13:03-0400 Systolic blood pressure 121 mm[Hg] Dr. Braulio Bosch MD Work Phone: 4(306)512-150136 [place] [address] 04-05-2025 14:35-0400 Body temperature 98.7 [degF] Dr. Braulio Bosch MD Work Phone: 4(987)312-956736 [place] [address] 04-05-2025 14:35-0400 Diastolic blood pressure 78 mm[Hg] Dr. Braulio Bosch MD Work Phone: 0(627)895-840836 [place] [address] 04-05-2025 14:35-0400 Heart rate 78 /min Dr. Braulio Bosch MD Work Phone: 6(084)061-172936 [place] [address] 04-05-2025 14:35-0400 Respiratory rate 16 /min Dr. Braulio Bosch MD Work Phone: 8(289)445-157036 [place] [address] 04-05-2025 14:35-0400 SaO2% (BldA) [Mass fraction] 99 % Dr. Braulio Bosch MD Work Phone: 0(939)296-998338 [place] [address] 04-05-2025 14:35-0400 Systolic blood pressure 126 mm[Hg] Dr. Braulio Bosch MD Work Phone: [facility] 04-05-2025 11:27-0400 Body height 165.[address] Braulio Bosch MD Work Phone: [facility] 04-05-2025 11:27-0400 Body mass index (BMI) [Ratio] 37.5 kg/m2 Dr. Braulio Bosch MD Work Phone: 1(622)925-699513 [address] 04-05-2025 11:27-0400 Body weight 102.[address] Braulio Bosch MD Work Phone: 0(674)307-145936 [place] [address] 04-05-2025 10:12-0400 Diastolic blood pressure 66 mm[Hg] Dr. Braulio Bosch MD Work Phone: 9(967)782-857536 [place] [address] 04-05-2025 10:12-0400 Heart rate 87 /min Dr. Braulio Bosch MD Work Phone: 1(050)110-877338 [place] [address] 04-05-2025 10:12-0400 Systolic blood pressure 110 mm[Hg] Dr. Braulio Bosch MD Work Phone: 6(380)867-174736 [place] [address] 04-05-2025 10:07-0400 Body mass index (BMI) [Ratio] 37.5 kg/m2 Dr. Braulio Bosch MD Work Phone: 1(978)405-424338 [place] [address] 04-05-2025 10:07-0400 Body weight 102.[address] Braulio Bosch MD Work Phone: 5(503)259-209138 [place] [address] 04-05-2025 09:49-0400 Body temperature 98.3 [degF] Dr. Braulio Bosch MD Work Phone: 1(080)021-537238 [place] [address] 04-05-2025 09:49-0400 Respiratory rate 16 /min Dr. Braulio Bosch MD Work Phone: 5(819)311-548038 [place] [address] 03-23-2025 10:00-0400 Body height 165.[address] Braulio Bosch MD Work Phone: 5(848)446-285636 [place] [address] 03-23-2025 10:00-0400 Body mass index (BMI) [Ratio] 36.9 kg/m2 Dr. Braulio Bosch MD Work Phone: 4(205)902-566736 [place] [address] 03-23-2025 10:00-0400 Body weight 100.[address] Braulio Bosch MD Work Phone: 9(044)178-556236 [place] [address] 03-23-2025 10:00-0400 Diastolic blood pressure 72 mm[Hg] Dr. Braulio Bosch MD Work Phone: 5(487)115-191536 [place] [address] 03-23-2025 10:00-0400 Systolic blood pressure 114 mm[Hg] Dr. Braulio Bosch MD Work Phone: 1(619)827-342336 [place] [address] 02-26-2025 15:39-0400 Body height 165.[address] Braulio Bosch MD Work Phone: 3(763)483-807136 [place] [address] 02-26-2025 15:39-0400 Body mass index (BMI) [Ratio] 35.9 kg/m2 Dr. Braulio Bosch MD Work Phone: 9(636)829-473336 [place] [address] 02-26-2025 15:39-0400 Body weight 98.[address] Braulio Bosch MD Work Phone: 9(773)491-271836 [place] [address] 02-26-2025 15:39-0400 Diastolic blood pressure 76 mm[Hg] Dr. Braulio Bosch MD Work Phone: 0(669)434-968336 [place] [address] 02-26-2025 15:39-0400 Systolic blood pressure 117 mm[Hg] Dr. Braulio Bosch MD Work Phone: 3(201)831-351336 [place] [address] 01-29-2025 08:45-0400 Body height 165.[address] Braulio Bosch MD Work Phone: 0(731)407-409836 [place] [address] 01-29-2025 08:45-0400 Body mass index (BMI) [Ratio] 34.1 kg/m2 Dr. Braulio Bosch MD Work Phone: 9(878)106-679436 [place] [address] 01-29-2025 08:45-0400 Body weight 93.[address] Braulio Bosch MD Work Phone: 8(103)630-714038 [place] [address] 01-29-2025 08:45-0400 Diastolic blood pressure 70 mm[Hg] Dr. Braulio Bosch MD Work Phone: 0(325)552-641138 [place] [address] 01-29-2025 08:45-0400 Systolic blood pressure 114 mm[Hg] Dr. Braulio Bosch MD Work Phone: 5(991)906-100936 [place] [address] 01-01-2025 10:14-0400 Body height 165.[address] Braulio Bosch MD Work Phone: 0(464)973-342236 [place] [address] 01-01-2025 10:13-0400 Body mass index (BMI) [Ratio] 33.5 kg/m2 Dr. Braulio Bosch MD Work Phone: 4(221)282-525736 [place] [address] 01-01-2025 10:13-0400 Body weight 91.[address] Braulio Bosch MD Work Phone: 1(987)475-680436 [place] [address] 01-01-2025 10:13-0400 Diastolic blood pressure 69 mm[Hg] Dr. Braulio Bosch MD Work Phone: 6(438)184-691236 [place] [address] 01-01-2025 10:13-0400 Systolic blood pressure 106 mm[Hg] Dr. Braulio Bosch MD Work Phone: 4(796)844-062936 [place] [address] 12-03-2024 08:30-0400 Body height 165.[address] Braulio Bosch MD Work Phone: 7(444)210-415136 [place] [address] 12-03-2024 08:30-0400 Body mass index (BMI) [Ratio] 32.3 kg/m2 Dr. Braulio Bosch MD Work Phone: 9(107)503-918036 [place] [address] 12-03-2024 08:30-0400 Body weight 87.[address] Braulio Bosch MD Work Phone: 7(224)042-543436 [place] [address] 12-03-2024 08:30-0400 Diastolic blood pressure 79 mm[Hg] Dr. Braulio Bosch MD Work Phone: 2(856)116-750838 [place] [address] 12-03-2024 08:30-0400 Systolic blood pressure 119 mm[Hg] Dr. Braulio Bosch MD Work Phone: 9(867)495-602536 [place] [address] 11-16-2024 13:00-0400 Body height 165.[address] Braulio Bosch MD Work Phone: 4(865)965-593736 [place] [address] 11-16-2024 13:00-0400 Body mass index (BMI) [Ratio] 31.5 kg/m2 Dr. Braulio Bosch MD Work Phone: 4(983)490-958136 [place] [address] 11-16-2024 13:00-0400 Body weight 85.[address] Braulio Bosch MD Work Phone: 8(367)448-250336 [place] [address] 11-16-2024 13:00-0400 Diastolic blood pressure 74 mm[Hg] Dr. Braulio Bosch MD Work Phone: 8(499)598-678636 [place] [address] 11-16-2024 13:00-0400 Systolic blood pressure 116 mm[Hg] Dr. Braulio Bosch MD Work Phone: 5(564)718-780536 [place] [address] 11-06-2024 16:17-0400 Body height 165.[address] Braulio Bosch MD Work Phone: 5(416)486-286836 [place] [address] 11-06-2024 16:16-0400 Body mass index (BMI) [Ratio] 31.2 kg/m2 Dr. Braulio Bosch MD Work Phone: 4(675)254-251736 [place] [address] 11-06-2024 16:16-0400 Body weight 85.[address] Braulio Bosch MD Work Phone: 1(988)764-019336 [place] [address] 11-06-2024 16:16-0400 Diastolic blood pressure 80 mm[Hg] Dr. Braulio Bosch MD Work Phone: 5(515)523-340736 [place] [address] 11-06-2024 16:16-0400 Systolic blood pressure 118 mm[Hg] Dr. Braulio Bosch MD Work Phone: 3(116)541-486736 [place] [address] 09-01-2024 13:41-0500 Body mass index (BMI) [Ratio] 29.5 kg/m2 Dr. Braulio Bosch MD Work Phone: [facility] 09-01-2024 13:41-0500 Body weight 80.[address] Braulio Bosch MD Work Phone: [facility] 09-01-2024 13:41-0500 Diastolic blood pressure 78 mm[Hg] Dr. Braulio Bosch MD Work Phone: [facility] 09-01-2024 13:41-0500 Systolic blood pressure 131 mm[Hg] Dr. Braulio Bosch MD Work Phone: [facility] 07-06-2022 20:31-0500 Diastolic blood pressure 76 mm[Hg] Dr. Ariadne Rivers Work Phone: [facility] Work Phone: 07-06-2022 20:31-0500 Heart rate 85 /min Dr. Ariadne Rivers Work Phone: [facility] Work Phone: 07-06-2022 20:31-0500 Respiratory rate 18 /min Dr. Ariadne Rivers Work Phone: [facility] Work Phone: 07-06-2022 20:31-0500 SaO2% (BldA) [Mass fraction] 100 % Dr. Ariadne Rivers Work Phone: [facility] Work Phone: 07-06-2022 20:31-0500 Systolic blood pressure 115 mm[Hg] Dr. Ariadne Rivers Work Phone: [facility] Work Phone: 07-06-2022 15:44-0500 Body height 165.[address] Ariadne Rivers Work Phone: [facility] Work Phone: 07-06-2022 15:44-0500 Body mass index (BMI) [Ratio] 28.3 kg/m2 Dr. Ariadne Rivers Work Phone: [facility] Work Phone: 07-06-2022 15:44-0500 Body temperature 98.9 [degF] Dr. Ariadne Rivers Work Phone: [facility] Work Phone: 07-06-2022 15:44-0500 Body weight 77.[address] Ariadne Rivers Work Phone: [facility] Work Phone: 06-17-2022 00:20-0500 Diastolic blood pressure 74 mm[Hg] Dr. Ariadne Rivers Work Phone: [facility] Work Phone: 06-17-2022 00:20-0500 Heart rate 78 /min Dr. Ariadne Rivers Work Phone: [facility] Work Phone: 06-17-2022 00:20-0500 SaO2% (BldA) [Mass fraction] 100 % Dr. Ariadne Rivers Work Phone: [facility] Work Phone: 06-17-2022 00:20-0500 Systolic blood pressure 130 mm[Hg] Dr. Ariadne Rivers Work Phone: [facility] Work Phone: 06-16-2022 23:03-0500 Body height 165.[address] Ariadne Rivers Work Phone: [facility] Work Phone: 06-16-2022 23:03-0500 Body mass index (BMI) [Ratio] 28.3 kg/m2 Dr. Ariadne Rivers Work Phone: [facility] Work Phone: 06-16-2022 23:03-0500 Body temperature 98.1 [degF] Dr. Ariadne Rivers Work Phone: [facility] Work Phone: 06-16-2022 23:03-0500 Body weight 77.[address] Ariadne Rivers Work Phone: [facility] Work Phone: 06-16-2022 23:03-0500 Respiratory rate 16 /min Dr. Ariadne Rivers Work Phone: [facility] Work Phone: 05-17-2022 08:25-0500 Body mass index (BMI) [Ratio] 28.8 kg/m2 Dr. Ariadne Rivers Work Phone: [facility] Work Phone: 05-17-2022 08:25-0500 Body temperature 98 [degF] Dr. Ariadne Rivers Work Phone: [facility] Work Phone: 05-17-2022 08:25-0500 Body weight 78.[address] Ariadne Rivers Work Phone: [facility] Work Phone: 05-17-2022 08:25-0500 Diastolic blood pressure 77 mm[Hg] Dr. Ariadne Rivers Work Phone: [facility] Work Phone: 05-17-2022 08:25-0500 Heart rate 83 /min Dr. Ariadne Rivers Work Phone: [facility] Work Phone: 05-17-2022 08:25-0500 Respiratory rate 16 /min Dr. Ariadne Rivers Work Phone: [facility] Work Phone: 05-17-2022 08:25-0500 SaO2% (BldA) [Mass fraction] 98 % Dr. Ariadne Rivers Work Phone: [facility] Work Phone: 05-17-2022 08:25-0500 Systolic blood pressure 120 mm[Hg] Dr. Ariadne Rivers Work Phone: [facility] Work Phone: 05-03-2022 08:18-0400 Body height 167.[address] Ariadne Rivers Work Phone: [facility] Work Phone: 05-03-2022 08:18-0400 Body mass index (BMI) [Ratio] 27.9 kg/m2 Dr. Ariadne Rivers Work Phone: [facility] Work Phone: 05-03-2022 08:18-0400 Body weight 78.[address] Ariadne Rivers Work Phone: [facility] Work Phone: 05-03-2022 08:18-0400 Diastolic blood pressure 60 mm[Hg] Dr. Ariadne Rivers Work Phone: [facility] Work Phone: 05-03-2022 08:18-0400 Systolic blood pressure 102 mm[Hg] Dr. Ariadne Rivers Work Phone: [facility] Work Phone: Encounters Encounter Date Encounter Type Care Provider Facility Start: 05-21-2025 ambulatory [facility] lity:[facility] Start: 05-21-2025 [facility] Start: 05-07-2025 End: 05-07-2025 ambulatory [facility] Facility:[facility] Start: 05-01-2025 End: 05-02-2025 [facility] Start: 04-23-2025 End: 04-23-[address] Dulce Villar MD -[facility] Work Phone: Start: 04-23-2025 End: 04-23-[address] Braulio Bosch MD Work Phone: -[facility] Start: 04-08-2025 End: 04-08-[address] Dulce Villar MD -[facility] Work Phone: Start: 04-08-2025 End: 04-08-[address] Braulio Bosch MD Work Phone: -[facility] Start: 04-08-2025 End: 04-08-2025 ambulatory Braulio Bosch Facility:[facility] Start: 04-05-2025 End: 04-05-2025 Emergency department patient visit Dr. Braulio Bosch MD Work Phone: -Emergency Department Work Phone: Start: 04-05-2025 ambulatory Braulio Bosch Faci lity:[facility] Start: 04-05-2025 Non-patient / Non-visit Mary Madrigal CNM -[facility] Start: 04-05-2025 End: 04-05-[address] Braul[facility] Bos[facility] Start: 04-05-2025 End: 04-05-2025 Patient encounter procedure Mary Madrigal CNM -[facility] Work Phone: Start: 03-26-2025 End: 03-26-[address] Braulio Bosch MD Work Phone: -Laboratory Start: 03-26-2025 End: 03-26-2025 Patient encounter procedure Bertha May COUNTER ROLLER-C -Laboratory Work Phone: Start: 03-26-2025 End: 03-26-2025 ambulatory Braulio Bosch Facility:[facility] Start: 03-23-2025 End: 03-23-2025 Patient encounter procedure Bertha May NP-C -[facility] Work Phone: Start: 03-23-2025 End: 03-23-[address] Braulio Bosch MD Work Phone: -[facility] Start: 03-23-2025 End: 03-23-2025 ambulatory Braulio Bosch Facility:[facility] Start: 02-26-2025 End: 02-26-[address] Dulce Villar MD -[facility] Work Phone: Start: 02-26-2025 End: 02-26-[address] Braulio Bosch MD Work Phone: [facility] Start: 02-15-2025 End: 02-15-2025 ambulatory NO PRIMARY CARE [facility] Start: 01-29-2025 End: 01-29-[address] Braulio Bosch MD Work Phone: -Laboratory Start: 01-29-2025 End: 01-29-[address] Dulce Villar MD -Laboratory Work Phone: Start: 01-29-2025 End: 01-29-2025 Patient encounter procedure Mary Madrigal CNM -[facility] Work Phone: Start: 01-29-2025 End: 01-29-[address] Braulio Bosch MD Work Phone: [facility] Start: 01-29-2025 End: 01-29-2025 ambulatory Dulce Villar Facility:[facility] Start: 01-25-2025 End: 01-25-2025 ambulatory NO PRIMARY CARE [facility] Start: 01-01-2025 End: 01-01-[address] Ashlyn Lagos DO -[facility] Work Phone: Start: 01-01-2025 End: 01-01-[address] Braulio Bosch MD Work Phone: [facility] Start: 12-03-2024 End: 12-03-[address] Braulio Bosch MD Work Phone: [facility] Work Phone: Start: 12-03-2024 End: 12-03-[address] Dulce Villar MD -Laboratory Specimen Work Phone: Start: 12-03-2024 End: 12-03-[address] Dulce Villar MD -[facility] Work Phone: Start: 12-03-2024 End: 12-03-[address] Braulio Bosch MD Work Phone: [facility] Work Phone: Start: 12-03-2024 End: 12-03-2024 ambulatory Dulce Villar Facility:[facility] Start: 11-16-2024 End: 11-16-[address] Dulce Villar MD -[facility] Work Phone: Start: 11-16-2024 End: 11-16-[address] Braulio Bosch MD Work Phone: [facility] Work Phone: Start: 11-16-2024 End: 11-16-2024 ambulatory Dulce Villar Facility:[facility] Start: 11-13-2024 ambulatory Dulce Villar Faci lity:[facility] Start: 11-06-2024 End: 11-06-[address] Braulio Bosch MD Work Phone: [facility] Work Phone: Start: 11-06-2024 End: 11-06-[address] Dulce Villar MD -Laboratory, Specimen Work Phone: Start: 11-06-2024 End: 11-06-[address] Dulce Villar MD -[facility] Work Phone: Start: 11-06-2024 End: 11-06-2024 ambulatory Dulce Villar Facility:[facility] Start: 11-06-2024 End: 11-06-2024 ambulatory Dulce Villar Facility:[facility] Start: 10-23-2024 Non-patient / Non-visit Stacy Barron RN -[facility] Work Phone: Start: 10-23-2024 ambulatory Braulio Stubbsjackie Jackie lity:[facility] Start: 09-01-2024 End: 09-01-[address] Dulce Villar MD -[facility] Work Phone: Start: 09-01-2024 End: 09-01-2024 ambulatory Dulce Newberryketan Facility:[facility] Start: 07-20-2024 End: 07-20-2024 Patient encounter procedure Dr. Dulce Villar MD -Ultrasound, [facility] Work Phone: Start: 07-20-2024 End: 07-20-2024 ambulatory Dulcediane Newberryketan Facility:[facility] Start: 07-03-2024 End: 07-03-2024 ambulatory Braulio Bosch JANE Facility:[facility] Start: 07-03-2024 End: 07-03-2024 ambulatory Dulce Villar Facility:[facility] Start: 06-26-2024 ambulatory Braulio LARA Facility:[facility] Start: 04-26-2023 End: 04-26-2023 ambulatory [facility] Work Phone: Start: 04-26-2023 End: 04-26-2023 Patient encounter procedure [facility] Work Phone: Start: 07-06-2022 End: 07-06-2022 Emergency department patient visit Dr. Ariadne Rivers Work Phone: [facility]Emergency [facility] Start: 07-03-2022 End: 07-03-[address] Ariadne Rivers Work Phone: [facility] Work Phone: Start: 07-03-2022 End: 07-03-[address] Ariadne Rivers [facility] Start: 06-16-2022 End: 06-17-2022 Emergency department patient visit Dr. Ariadne Rivers Work Phone: [facility] Start: 05-17-2022 End: 05-17-[address] Ariadne Rivers Work Phone: [facility] Start: 05-07-2022 End: 05-07-[address] Ariadne Rivers Work Phone: [facility] Work Phone: Start: 05-07-2022 End: 05-07-[address] Ariadne Rivers Work Phone: [facility], [facility] Start: 05-03-2022 End: 05-03-[address] Ariadne Rivers Work Phone: [facility] Work Phone: Start: 05-03-2022 End: 05-03-[address] Ariadne Rivers Work Phone: [facility] Procedures Date Procedure Procedure Detail Performing Clinician Start: 05-02-[address] Braulio Bosch MD Work Phone: Start: 04-05-2025 CT angiography of ch est [...] or Pulmonary Embolism (PE)CRITICAL VALUE CALLED TO UTTNIGJNTF12/29/25 India Orozco.RESULTS READ BACK BY SAME. Start: 04-05-2025 End: 04-05-[address] Braulio Bosch MD Work Phone: Start: 03-23-2025 Serologic test for syphilis Dr. Braulio Bosch MD Work Phone: Start: 01-29-2025 Methadone [...] HCV Quant by PCR testing - HCVPCR #[id number] Non Reactive: < 0.8 Equivocal: >/= 0.8 [...] Treatment Date Care Activity Detail Author Start: 05-02-2025 Nonstress test [facility] Start: 05-02-2025 Obstetric monitoring [facility] Start: 05-02-2025 Vital signs measurements [facility] Start: 05-02-2025 [facility] Start: 05-02-2025 Non-patient / Non-visit Non-patient / Non-visit -[facility] Start: 05-02-2025 Patient discharge [facility] Start: 05-01-2025 End: 05-02-2025 Patient encounter procedure Anxiety and depression [facility] Work Phone: Start: 04-08-2025 CBC W Auto Differential panel - Blood [facility] Start: 04-08-2025 Comprehensive metabolic 2000 panel - Serum or Plasma [facility] Start: 04-05-2025 [facility] Start: 04-05-2025 Nonstress test [facility] Start: 04-05-2025 Obstetric monitoring [facility] Start: 04-05-2025 Vital signs measurements [facility] Start: 04-05-2025 End: 04-05-2025 [facility] Start: 04-05-2025 Catheterization of vein [facility] Start: 03-23-2025 CBC W Auto Differential panel - Blood [facility] Start: 03-23-2025 Measurement of glucose 2 hours after glucose challenge for glucose tolerance test [facility] Start: 03-23-2025 Serologic test for syphilis [facility] Start: 03-23-2025 [facility] Start: 07-03-2022 [facility] Work Phone: Alanine aminotransfe rase [Enzymatic activity/volume] in Serum or Plasma [facility] Albumin [Mass/volume ] in Serum or Plasma [facility] Alkaline phosphatase [Enzymatic activity/volume] in Serum or Plasma [facility] Anion gap in Serum or Plasma [facility] Bilirubin, total measurement [facility] BUN/Creatinine ratio [facility] Calcium [Mass/volume ] in Serum or Plasma [facility] Carbon dioxide, tota l [Moles/volume] in Central venous blood [facility] CBC W Auto Different ial panel - Blood [facility] Creatinine [Mass/vol ume] in Serum or Plasma [facility] Erythrocyte mean cor puscular volume determination [facility] Erythrocyte mean cor puscular volume determination [facility] Glucose [Mass/volume ] in Serum or Plasma [facility] Hematocrit [Volume F raction] of Blood [facility] Hematocrit [Volume F raction] of Blood [facility] Hemoglobin [Mass/vol ume] in Blood [facility] Hemoglobin [Mass/vol ume] in Blood [facility] Hepatitis B virus bran rface Ag [Presence] in Serum [facility] Leukocytes [#/volume ] in Blood [facility] Leukocytes [#/volume ] in Blood [facility] Mean corpuscular hem oglobin concentration determination [facility] Mean corpuscular hem oglobin concentration determination [facility] Mean corpuscular hem oglobin determination [facility] Mean corpuscular hem oglobin determination [facility] Measurement of gluco se 2 hours after glucose challenge for glucose tolerance test [facility] Measurement of renal function [facility] Neutrophil count [facility] Neutrophil count [facility] Neutrophil percent differential count [facility] Neutrophil percent differential count [facility] Nuclear Ab [Titer] i n Serum by Immunofluorescence [facility] Work Phone: Patient Education [facility] Work Phone: Patient referral [facility] Work Phone: Platelets [#/volume] in Blood [facility] Platelets [#/volume] in Blood [facility] Potassium measurement [facility] Protein/Creatinine [ Ratio] in Urine [facility] Red blood cell count [facility] Red blood cell count [facility] Red cell distributio n width determination [facility] Red cell distributio n width determination [facility] Serologic test for syphilis [facility] Serum chloride measurement [facility] Sodium measurement [facility] Total protein measurement [facility] Ultrasound scan for growth [facility] Urea nitrogen [Mass/ volume] in Serum or Plasma [facility] [place] [place] Immunizations Immunization Date Immunization Notes Care Provider Modesta dawn 04-08-2025 tetanus toxoid, reduced diphtheria toxoid, and acellular pertussis vaccine, adsorbed Dr. Braulio Bosch MD Work Phone: [facility] Payers Date Payer Category Payer Self-pay [id number] 2024 Unknown [id number] 2015 Private Health Insurance [facility] [id number] 1990 Unknown [id number] 2.16. [id number] 1990 Unknown [id number] 2.16. 840.1.212130.3.579.2.479 Unknown [id number] 2.16.8 40.1.361778.3.579.2.462 Unknown [id number] 2.16.8 40.1.863960.3.579.2.462 Unknown [id number] 2.16.8 40.1.528834.3.579.2.462 Unknown [id number] 2.16.8 40.1.726196.3.579.2.462 Unknown [id number] 2.16.8 40.1.599828.3.579.2.462 Unknown [id number] 2.16.8 40.1.537597.3.579.2.462 Unknown [id number] 2.16.8 40.1.641046.3.579.2.462 Unknown [id number] 2.16.8 40.1.972730.3.579.2.462 Unknown [id number] 2.16.8 40.1.763982.3.579.2.462 Unknown [id number] 2.16.8 40.1.828075.3.579.2.462 Unknown [id number] 2.16.8 40.1.178757.3.579.2.462 Unknown [id number] 2.16.8 40.1.824668.3.579.2.462 Unknown [id number] 2.16.8 40.1.376464.3.579.2.462 Unknown [id number] 2.16.8 40.1.735299.3.579.2.462 Unknown [id number] 2.16.8 40.1.234433.3.579.2.462 Unknown [id number] 2.16.8 40.1.892002.3.579.2.462 Unknown [id number] 2.16.8 40.1.791701.3.579.2.462 Unknown [id number] 2.16.8 40.1.509493.3.579.2.462 Unknown [id number] 2.16.8 40.1.589339.3.579.2.462 Unknown [id number] 2.16.8 40.1.470345.3.579.2.462 Unknown [id number] 2.16.8 40.1.492065.3.579.2.462 Unknown [id number] 2.16.8 40.1.643325.3.579.2.462 Unknown [id number] 2.16.8 40.1.485178.3.579.2.462 Unknown [id number] 2.16.8 40.1.884944.3.579.2.462 Unknown [id number] 2.16.8 40.1.331042.3.579.2.462 Unknown [id number] 2.16.8 40.1.053725.3.579.2.462 Unknown [id number] 2.16.8 40.1.071867.3.579.2.462 Unknown [id number] 2.16.8 40.1.466404.3.579.2.462 Unknown [id number] 2.16.8 40.1.550309.3.579.2.462 Unknown [id number] 2.16.8 40.1.953894.3.579.2.462 Unknown [id number] 2.16.8 40.1.670837.3.579.2.462 Social History Date Type Detail Facility Start: 05-03-2022 End: 07-06-2022 Tobacco smoking status NHIS Unknown if ever smoked [facility] Start: 06-12-2019 None [facility] Start: 1990 Sex Assigned At Female W [facility] Start: 10-22-2024 End: 04-05-2025 Tobacco smoking status NHIS Never smoked tobacco (finding) [facility] Sex Female [facility] Goals Date Patient Goal Desired Activity /State Mental Status Date Assessment Result Facility 04-05-2025 Cognitive function Voice/Name [facility] Work Phone: 07-06-2022 Cognitive function Level Of Cons ciousness Awake;Alert;Appropriate;Follow s Commands [facility] Work Phone: Clinical Notes 09-01-2024 to 04-23-2025 Note Date & Type Note Facility 04-23-2025 Progress note [facility] 04-23-2025 Progress note Note Date/Time April 23, 2025 4:03pm [facility] [address], [address] [place] [address] OFFICE VISIT Date of Service: 04/23/25 MR#: [id number] Acct: [id number] Name: SHIRA ARBOLEDA Rep #: [id number] : 1990 Provider: Dr. 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 Required: No Is patient in pain?: No Allergies Latex, Natural Rubber Allergy (Intermediate, Verified 04/23/25 15:32) Swelling amoxicillin Allergy (Verified 04/23/25 15:32) Hives naproxen (From Aleve) Allergy (Verified 04/23/25 15:32) Hives sulfamethoxazole (From Bactrim) Allergy (Verified 04/23/25 15:32) Hives trimethoprim (From Bactrim) Allergy (Verified 04/23/25 15:32) Hives Medications ?Medication ?Instructions ?Recorded ?Confirmed ?Type multivit-min no.71-iron fum 28 cap PO 10/22/24 5 History mg-folate no.1 1 mg-dha 300 mg capsule (PNV-Garvin) hydroxyzine HCl 25 mg tablet 25 mg PO TID PRN anxiety #120 tabs 02/18/25 04/23/25 Rx fluoxetine 40 mg capsule 40 mg PO DAILY #30 caps 02/0604/23/25 Rx Last Menstrual Period: 09/07/24 Zika: Zika [...] employed 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 Date Name GA/Weeks Outcome Route Bth Weight Infant Gen Labor Lgth Anesthesia Del Locatn Provider RYAN 03/21/18 Justin 40 live - full term 9lbs 7oz Male epi dural [facility] 06/12/19 Thakur-Goes by Tevin 40 live - full term 8l bs 8oz Male epidural [facility] Dr. Olena Kilpatrick 01/13/21 Isamar 40 live - full term 7lbs 6oz Female ep idural [facility] Dr. Olena Kilpatrick 07/10/24 elective Delivery Date: [...] -?-?-?-?-?-?-?-?-?-?-?-?- Negative 150 -?-?-?-?-?-?-?-?-?-?-?-?- SM- no vb crampkrzysztof amezcua doing well 12/03/24 -?-?-?-?-?-?-?-?-?-?-?-?- 12w 3d 194 lb 119/79 Negative -?-?-?-?-?-?-?-?-?-?-?-?- Negative 160 -?-?-?-?-?-?-?-?-?-?-?-?- SM- having burni ng on urination after interoucrse only. some loss of taste and her tongue hurts, no significant whitening of tongue yet. 01/01/25 -?-?-?-?-?-?-?-?-?-?-?-?- 16w 4d 201 lb 6 oz 106/69 -?-?-?-?-?-?-?-?-?-?-?-?- 147 -?-?-?-?-?-?-?-?-?-?-?-?- JV- no lof, vagi nal bleeding, or cramping. Going to [facility] on a work trip soon. promethazine given for the flight. she knows not to continue JV- no lof, vaginal bleeding , or cramping. Going to [facility] on a work trip soon. promethazine given [...] but r/t family stressors. Seeing counselor. 04/08/25 -?-?-?-?--?-?-?-?-?-?-?-?- 30w 3d 226 lb 9 oz 121/77 Trac e -?-?-?-?-?-?-?-?-?-?-?-?- Negative 145 32 -?-?-?-?-?-?-?-?-?-?-?-?- SM- no vb lof go od fm no regualr ctx discussed right rib pain and seen in ER over the weekend for symptoms 04/23/25 -?-?-?-?-?-?-?-?-?-?-?-?- 32w 4d 235 lb 8 oz 106/72 Nega tive -?-?-?-?--?-?-?-?-?-?-?-?- Negative 140 34 -?-?-?-?-?-?-?-?-?-?-?-?- SM- no vb lof go od fm n oregular ctx ACOG First Trimester First Trimester: Desire for [...] Immediate Larc, Signs and Symptoms of Preeclampsia, Infant Feeding No and Family Medical Leave or Disability Forms Results POC Urinalysis 2 Dip (Clinic) Office Urine Glucose Negative Last Edit by Bertha Harvey on 04/23/25 15:37 Office Urine Protein Negative Last Edit by Bertha Harvey on 04/23/25 15:37 Coding Level of Care Code OB Routine Diagnoses Anxiety and depression F41.9; F32.9 Group B Streptococcus urinary tract infection affecting in third trimester O23.43; B95.1 Trimester: third trimester 32 weeks gestation of Z3A.32 Weeks of gestation: 32 weeks Supervision of high risk in third [...] : Status: Acute Qualifiers: Weeks of gestation: 32 weeks Qualified Code(s): Z3A.32 - 32 weeks gestation of Comment: LR NIPT. declined [...] Goals Decrease spasm Improve motion of sacrum 04/23/25 1603 <Electronically signed by Dulce woodard MD> Date _ Dulce Villar MD Cosigner Signature: Date (if applicable) CC: ~ [facility] Work Phone: 1(791) 930-555410-02-2025 [facility] [address], [address] [place] [address] OFFICE VISIT Date of Service: 04/08/25 MR#: [id number] Acct: [id number] Name: SHIRA ARBOLEDA Rep #: [id number] : 1990 Provider: Dr. Feng Villar MD Age/Sex: 34/F Location: [facility] – [place] Status: Signed with Addenda ADDENDUM by Bertha Harvey on 04/08/25 at 1351 Office Procedure Documentation entered by Bertha Harvey 04/08/25 13:51: Immunizations Boostrix Tdap 2.5 Lf unit-8 mcg-5 Lf/0.5 mL intramuscular syringe Performing Provider: Dulce Villar MD Performing Location: [facility] Administered by: Bertha Harvey on 04/08/25 13:50 Dose Route Admin Location Dispensed Lot Number Expiration Date Pack age NDC NDC [employer] 0.5 mL IM Right Deltoid 0.5 mL [id number] 03/07/27 16271-459-06 [id number] [employer]- PASTEUR VIS Given Date VIS Provided [...] H Intake Visit Reasons: 30 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: No Is patient in pain?: No [...] mg-folate no.1 1 mg-dha 300 mg capsule (PNV-Garvin) hydroxyzine HCl 25 mg tablet 25 mg [...] current occupational status: employed 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 Date Name GA/Weeks Outcome Route Bth Weight Infant Gen Labor Lgth Anesthesia Del Locatn Provider RYAN 03/21/18 Justin 40 live - full term 9lbs 7oz Male epi dural [facility] 06/12/19 Thakur-Goes by Tevin 40 live - full term 8l bs 8oz Male epidural [facility] Dr. Olena Kilpatrick 01/13/21 Isamar 40 live - full term 7lbs 6oz Female ep idural [facility] Dr. Olena Kilpatrick 07/10/24 elective Delivery Date: [...] vagi nal bleeding, or cramping. Going to [facility] on a work trip soon. promethazine given for the flight. she knows not to continue JV- no lof, vaginal bleeding , or cramping. Going to [facility] on a work trip soon. promethazine given for the flight. she knows not to take the vistaril with it. 01/29/25 -?-?-?-?-?-?-?-?-?-?-?-?- 20w 4d 205 lb 4 oz 114/70 Nega tive -?-?-?-?-?-?-?-?-?-?-?-?- Negative 130 -?-?-?-?-?-?-?-?-?-?-?-?- KW- no vb/crampi ng. [place] fm recommended magnesium and iron for restless [...] Immediate Larc, Signs and Symptoms of Preeclampsia, Infant Feeding No and Family Medical Leave or [...] Comment: PRR , TIFFANY 06/14/25, girl Teresa GEOVANY Anderson, Isamar Abarca, Partner Chintan (5) History of marijuana use: Status: Acute Comment: Gummies last used 05/31, discussed random tox screens during (6) Hx of depression, currently : Status: Acute (7) FH: cleft lip and palate: Status: Acute Comment: Brother Orders: Orders POC Urinalysis 2 Dip (Clinic) Today Plan Details Goals & Barriers: Goals Decrease spasm Improve motion of sacrum 04/08/25 1334 yamilet CHAUHAN> Date _ Dulce Villar MD [facility] Signature: Date (if applicable) CC: ~ [facility]09[facility]29-2025 Discharge summary [facility] Medical Records Department [address] [place] [address] Emergency Department Summary 04/05/25 MR#: [id number] Acct: [id number] Name: SHIRA ARBOLEDA Rep #:[id number] : 1990 34 From: Alejandro Gonzalez MD PCP: Dr. Braulio Bosch MD Status :DEP ER Location: ED HPI History of Present Illness Chief Complaint: Dizziness Informant: patient Onset/Context/Timing Onset: Today and Yesterday Context: Gradual Onset Timing: Intermittent Current Severity: Mild Maximum Severity: Mild Narrative Narrative: 34-year-old female currently 30 weeks . G4, P3 and Ab0. States that she was already seen inlabor delivery today. They sent her down she was complaining of dizziness and says she was having [place] Amato contractions. Atypical chest pain. Denies any cardiac history. No history of DVT or PE.No hemoptysis. No pleuritic pain. No leg pain or swelling. She does have a history of anxiety and states it feels like she is going to have an anxiety attack. She denies any vaginal bleeding. No dysuria. No fever or cough. No shortness of breath. 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 Constitutional [...] nontender uterus. Moving all 4 extremities. 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 Equal symmetrical radial pulses. Calves are [...] to inspection, nondistended, normoactive bowel sounds, non-tender, non- distended and no masses Auscultation: normoactive bowel sounds [...] exam. She is 30 weeks she has [place] Amato contractions a Wallace gave her atypical chest pain. She has [...] % (Auto) 67.1 Lymph % (Auto) 22.7 [place] % (Auto) 6.3 Eos % (Auto) 0.8 [...] evidence of acute cardiopulmonary disease. Reading Location: [place] [address] Chest CTA 04/05/25 12:48 IMPRESSION: There is no evidence of pulmonary embolus within the pulmonary artery or outflowtrack. Unremarkable exam. Reading Location: [place] [address] Chest x-ray, 2 views, AP and lateral, [...] rhythm rate 96 no acute signs of WA or ischemia. Inverted T waves in leads I, II and aVL. Prior EKG tracings: available for review Prior: Changed Discharge Plan Triage Chief Complaint: Dizziness ED Provider: Alejandro Gonzalez Dx/Rx/DC Orders Clinical Impression: Chest pain, Anxiety, Third trimester Instructions: ED Anxiety Reaction Prescriptions: No Action fluoxetine 40 mg capsule 40 mg PO DAILY Qty: 30 12RF PNV-Garvin 28-1-300 mg capsule PO hydroxyzine HCl 25 [...] imaging today all look good. Print Language: Monegasque Disposition Disposition: Home, Self Care What to do if you have Problems For any increased pain, shortness of breath, bleeding, nausea or vomiting, chestpain, or any unexpected problems, contact your Primary Care Provider. Call [facility] ([phone]) or report tothe closest Emergency Room. Call 911 if necessary. 04/05/25 1447 Cosigner Signature (if applicable): CC: Dr. Braulio Bosch MD ~ Signed [facility]09-29-2025 Radiology Diagnostic study note [facility] Imaging Services [address] [place] [address] CTA Chest W/WO Contrast MR#: [id number] Acct: [id number] Name: SHIRA ARBOLEDA Rep #: [id number] : 1990 F 34 From: Michelle Purvis MD PCP: Dr. Braulio Bosch MD Status: REG ER Study:CTA Chest W/WO Contrast Date of Exam: 04/05/25 Exam# [id number] Ordering Dr: Cal Gonzalez MD PROCEDURE: CTA [...] artery or outflowtrack. Unremarkable exam. Reading Location: [place] [address] CC: Dr. Braulio Bosch MD; Dr. Alejandro Gonzalez MD ~ Door To Door Selling Agent: Signed [facility]09-29-2025 Discharge summary Author Alejandro Gonzalez [facility] Note Date/Time April 05, 2025 2:36pm [facility] Medical Records Department [address] [place] [address] Emergency Department Summary 04/05/25 MR#: [id number] Acct: [id number] Name: SHIRA ARBOLEDA Rep #:[id number] : 1990 34 From: Alejandro Gonzalez MD [...] similar symptoms: Yes Recent Illness/Hospitalization: No PFSH PFSH Medical History Anxiety and depression Elective Dizziness Shortness of breath Hemorrhoid GERD (gastroesophageal reflux disease) Genital herpes Home Medications ?Medication ?Instructions ?Recorded ?Last Taken ?Type multivit-min no.71-iron fum 28 cap PO 10/22/24 5 History mg-folate no.1 1 mg-dha 300 mg capsule (PNV-Garvin) hydroxyzine HCl 25 mg tablet 25 mg [...] current occupational status: employed 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 Constitutional [...] nontender uterus. Moving all 4 extremities. 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 Equal symmetrical radial pulses. Calves are [...] exam. She is 30 weeks she has [place] [place] contractions a Priyanka gave her atypical [...] % (Auto) 67.1 Lymph % (Auto) 22.7 [place] % (Auto) 6.3 Eos % (Auto) 0.8 [...] evidence of acute cardiopulmonary disease. Reading Location: [place] [address] Chest CTA 04/05/25 12:48 IMPRESSION: There is no evidence of pulmonary embolus within the pulmonary artery or outflowtrack. Unremarkable exam. Reading Location: [place] [address] Chest x-ray, 2 views, AP and lateral, [...] rhythm rate 96 no acute signs of WA or ischemia. Inverted T waves in leads I, II and aVL. Prior EKG tracings: available for review Prior: Changed Discharge Plan Triage Chief Complaint: Dizziness ED Provider: Alejandro Gonzalez Dx/Rx/DC Orders Clinical Impression: Chest pain, Anxiety, Third trimester Instructions: ED Anxiety Reaction Prescriptions: No Action fluoxetine 40 mg capsule 40 mg PO DAILY Qty: 30 12RF PNV-Garvin 28-1-300 mg capsule PO hydroxyzine HCl 25 [...] imaging today all look good. Print Language: Monegasque Disposition Disposition: Home, Self Care What to do if you have Problems For any increased pain, shortness of breath, bleeding, nausea or vomiting, chestpain, or any unexpected problems, contact your Primary Care Provider. Call [facility] ([phone]) or report to the closest Emergency Room. Call 911 if necessary. 04/05/25 1447 <Electronically signed by Alejandro Gonzalez MD> Cosigner Signature (if applicable): CC: Dr. Braulio Bosch MD ~ Signed [facility] Work Phone: 1(425) 472-664409-29-2025 Radiology Diagnostic study note [facility] Imaging Services [address] [place] [address] Chest PA and Lateral MR#: [id number] Acct: [id number] Name: SHIRA ARBOLEDA Rep #: [id number] : 1990 F 34 From: Michelle Purvis MD PCP: Dr. Braulio Bosch MD Status: REG ER Study:Chest PA and Lateral Date of Exam: 04/05/25 Exam# [id number] Ordering Dr: Cal Gonzalez MD PROCEDURE: CHEST PA AND LATERAL 04/05/2025 REASON FOR EXAM: CHEST PAIN TECHNIQUE: Procedure Code: RADCXR Modality: DX Procedure: CHEST PA AND LATERAL COMPARISON: 07/03/2022 FINDINGS: Cardiomediastinal silhouette pulmonary vasculature and bony thorax are within normal limits. No focal infiltrates or effusion. RAD/Chest PA and Lateral IMPRESSION: No radiographic evidence of acute cardiopulmonary disease. Reading Location: [place] [address] CC: Dr. Braulio Bosch MD; Dr. Alejandro Gonzalez MD ~ Door To Door Selling Agent: Signed [facility]09-29-2025 Progress note [facility] Medical Records Department [address] [place] [address] OB Triage Progress Note 04/05/25 1046 MR#: [id number] Acct: [id number] Name: SHIRA ARBOLEDA Rep #:[id number] : 1990 34 From: Mary Madrigal CNM PCP: Dr. Braulio Bosch MD Status :DEP CLI Y DOS: Location: WPOUT Progress Notes Progress Note: Patient presents for triage evaluation secondary to shortness of breath and blurred vision. FHT: 135 Moderate variability reactive no decelerations category I tracing [place]: irregular mild Contractions Assessment and plan: pre e labs and normal BP, Reactive NST, reassuring maternaland status patient to ER for evaluation of shortness of breath. See problem list details for additional plan information. Charges/Coding Multi Select Codes Urinary/Genital Urinary/Genital CPT Codes: 38807-33 non-stress test Interp Assessment & Plan (1) [...] [facility] Tevin Anderson Ruby, Partner Chintan (6) History of marijuana use: COMMENT: Gummies last used 05/31, discussed random tox screens during (7) Hx of depression, currently : (8) FH: cleft lip and palate: COMMENT: Brother 04/05/25 1411 s CNM> Date _ Mary Madrigal CNM Cosigner Signature (if applicable): Date CC: CNYue Madrigal; Dr. Braulio Bosch MD ~ Signed [facility]07-25-2025 Evaluation note* Diagnosis Onset Date Resolution Status [...] streptococcus) UTI complicating acute Septe mber 2024 9:56am History of marijuana use acute [...] 2025 9:32am Anxiety and depression acute Oc tober 2024 12:46pm FH: cleft lip and palate acute April 08, 2025 12:46pm GBS (group B streptococcus) UTI complicating acute Octob er 2024 12:46pm History of marijuana use acute April 08, 2025 12:46pm Hx of depression, currently acute April 08, 2025 12:46pm acute April 08, 12:46pm Supervision of high-risk acute April 08 12:46pm Anxiety and depression acute Oc tober 2024 3:27pm FH: cleft lip and palate acute April 23, 2025 3:27pm GBS (group B streptococcus) UTI complicating acute Octob er 2024 3:27pm History of marijuana use acute April 23, 2025 3:27pm Hx of depression, currently acute April 23, 2025 3:27pm acute April 23, 2025 3:27pm Supervision of high-risk acute April 23 3:27pm Anxiety and depression acute Oc tober 2024 11:48pm FH: cleft lip and palate acute May 01, 2025 11:48pm GBS (group B streptococcus) UTI complicating acute Octob er 2024 11:48pm History of marijuana use acute May 01, 2025 11:48pm Hx of depression, currently acute May 01, 2025 11:48pm acute May 01, 2025 11:48pm Supervision of high-risk acute May 01 11:48pm [facility] Work Phone: 1(687) 801-288407-25-2025 Progress [facility] [address] [place] [address], [address] [place] [id number] OFFICE VISIT Date of Service: 01/29/25 MR#: [id number] Acct: [id number] Name: SHIRA ARBOLEDA Rep #: [id number] : 1990 Provider: SMITA Madrigal Age/Sex: 34/F Location: [facility] [place] Status: Signed Intake Vital Signs 11/16/24 13:00 01/01/25 10:14 01/29/25 08:45 Height 5 ft 5 in 5 ft 5 in 5 ft 5 in Weight: 205 lb 4 oz BMI 34.1 BP 114/70 Intake Visit Reasons: 20 wk ob Chief Complaint: 20 Week OB 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 Required: No Is patient in pain?: No [...] mg-folate no.1 1 mg-dha 300 mg capsule (PNV-Garvin) hydroxyzine HCl 25 mg tablet 25 mg [...] current occupational status: employed 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 Date Name GA/Weeks Outcome Route Bth Weight Infant Gen Labor Lgth Anesthesia Del Locatn Provider FOB 03/21/18 Justin 40 live - full term 9lbs 7oz Male epi dural [facility] 06/12/19 Thakur-Goes by Tevin 40 live - full term 8l bs 8oz Male epidural [facility] Dr. Olena Kilpatrick 01/13/21 Isamar 40 live - full term 7lbs 6oz Female ep idural [facility] Dr. Olena Kilpatrick 07/10/24 elective Delivery Date: [...] vagi nal bleeding, or cramping. Going to [employer] on a work trip soon. promethazine given for the flight. she knows not to continue JV- no lof, vaginal bleeding , or cramping. Going to [employer] on a work trip soon. promethazine given [...] PRR , TIFFANY 06/14/25, girl [facility] Leonel AndersonieIsamar, Partner Chintan (3) Dysuria: Status: Acute Comment: [...] of sacrum 01/29/25 0902 s SMITA> Date Erna Madrigal CNM Cosigner Signature: Date (if applicable) CC: ~ [facility]06-27-20[facility] Evaluation note* Diagnosis Onset Date Resolution Status [...] February 26, 2025 3:35pm acute February 26, 025 3:35pm Supervision of high-risk acute February 26 3:35pm Dysuria resolved February 26 2 025 3:35pm Anxiety and depression acute Se ptember 2024 9:56am FH: cleft lip and palate acute March 23, 2025 9:56am GBS (group B streptococcus) UTI complicating acute Septe mber 2024 9:56am History of marijuana use acute [...] of high-risk acute April 05, 2025 9:32am [facility] Work Phone: 1(643) 190-765806-27-2025 Evaluation note* Diagnosis Onset Date Resolution Status [...] GBS (group B streptococcus) UTI complicating acute Mare mb2024 9:56am History of marijuana use acute March 23, 2025 9:56am Hx of depression, currently acute March 9:56am acute March 9:56am Supervision of high-risk acute March 23, 2025 9:56am Anxiety and depression acute Se ptember 2024 9:32am FH: cleft lip and palate acute April 05, 2025 9:32am GBS (group B streptococcus) UTI complicating acute mb2024 9:32am History of marijuana use acute April 05, 2025 9:32am Hx of depression, currently acute March 9:32am acute March 9:32am Supervision of high-risk acute April 05, 2025 9:32am Blurred vision resolved April 05, 2025 9:32am Anxiety and depression acute Oc tober 2024 12:46pm FH: cleft lip and palate acute April 08, 2025 12:46pm GBS (group B streptococcus) UTI complicating acute Octob er 2024 12:46pm History of marijuana use acute April 08, 2025 12:46pm Hx of depression, currently acute April 08, 2025 12:46pm acute April 08 025 12:46pm Supervision of high-risk acute April 08 12:46pm [facility] Work Phone: 1(228) 158-187805-29-2025 Evaluation note* Diagnosis Onset Date Resolution Status [...] GBS (group B streptococcus) UTI complicating acute mb2024 9:56am History of marijuana use acute March 23, 2025 9:56am Hx of depression, currently acute March 9:56am acute March 9:56am Supervision of high-risk acute March 23, 2025 9:56am [facility] Work Phone: 1(419) 616-875405-02-2025 Evaluation note* Diagnosis Onset Date Resolution Status [...] of high-risk acute January 01, 2025 10:11am [facility] Work Phone: 1(559) 529-533405-02-2025 Evaluation note* Diagnosis Onset Date Resolution Status [...] of high-risk acute January 29, 2025 8:40am [facility] Work Phone: 1([phone]) 419-209405-02-2025 Evaluation note* Diagnosis Onset Date Resolution Status [...] 29, 2025 8:40am Dysuria acute February 26, 025 3:35pm FH: cleft lip and palate acute February 26, 2025 3:35pm GBS (group B streptococcus) UTI complicating acute February 262024 3:35pm History of marijuana use acute February 26, 2025 3:35pm Hx of depression, currently acute February 26, 2025 3:35pm acute February 26, 2 025 3:35pm Supervision of high-risk acute February 26 3:35pm [facility] Work Phone: 1(708) 981-167602-25-2025 Evaluation note* Diagnosis Onset Date Resolution Status Admit Date Induced noneactive September 01, 2024 1:36pm FH: cleft lip and palate acute November 06, 2024 4:13pm History of marijuana use acute November 06, 2024 4:13pm Hx of depression, currently acute November 06, 2024 4:13pm acute November 06, 2024 4:13pm Supervision of high-risk acute November 06, 2024 4: 13pm [facility] Work Phone: [phone] Evaluation note* Diagnosis Onset Date Resolution Status [...] high-risk acute November 16, 2024 1 2:56pm [facility] Work Phone: [phone] Evaluation note* Diagnosis Onset Date Resolution Status [...] high-risk acute December 03, 2024 8 :27am [facility] Work Phone: [phone] Evaluation note* Diagnosis Onset Date Resolution Status [...] high-risk acute December 03, 2024 8 :27am [facility] Work Phone: Evaluation note* Diagnosis Onset Date Resolution Status Family history of ovarian cancer acute Encounter for routine gynecological examination noneactive [facility] Work Phone: Evaluation note* Diagnosis Onset Date Resolution Status Family history of ovarian cancer acute Encounter for routine gynecological examination noneactive Thyromegaly acute [facility] Work Phone: Evaluation noteNo assessment information available [facility] Work Phone: Hospital Discharge instructions Additional Instructions Plenty of fluids and rest. [id number] cough syrup. Follow-up with your doctor if not improving. Your exam and chest x-ray are normal.[facility] Work Phone: Hospital Discharge instructionsAdditional Instructions Pt transported via wheelchair to ED for c/o chest heavinessW[facility]: Hospital Discharge instructionsAdditional Instructions Follow-up with your OB as needed and scheduled. Continue your anxiety medications. Your labs and imaging today all look good.[facility] Work Phone: Progress note Author Mary Madrigal [facility] Note Date/Time January 29, 2025 9:02 am [facility] [address] [place] [address], [address] [place] [address] OFFICE VISIT Date of Service: 01/29/25 MR#: [id number] Acct: [id number] Name: SHIRA ARBOLEDA Rep #: [id number] : 1990 Provider: SMITA Madrigal Age/Sex: 34/F Location: [facility] [place] Status: Signed Intake Vital Signs 11/16/24 13:00 01/01/25 10:14 01/29/25 08:45 Height 5 ft 5 in 5 ft 5 in 5 ft 5 in Weight: 205 lb 4 oz BMI 34.1 BP 114/70 Intake Visit Reasons: 20 wk ob Chief Complaint: 20 Week OB 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 Required: No Is patient in pain?: No [...] mg-folate no.1 1 mg-dha 300 mg capsule (PNV-Garvin) hydroxyzine HCl 25 mg tablet 25 mg [...] employed 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 Date Name GA/Weeks Outcome Route Bth Weight Gen Labor Lgth Anesthesia Del Locatn Provider FOB 03/21/18 Justin 40 live - full term 9lbs 7oz Male epi dural [facility] 06/12/19 Thakur-Goes by Tevin 40 live - full term 8l bs 8oz Male epidural [facility] Dr. Olena Kilpatrick 01/13/21 Isamar 40 live - full term 7lbs 6oz Female ep idural [facility] Dr. Olena Kilpatrick 07/10/24 elective Delivery Date: [...] Negative 150 -?-?-?-?-?-?-?-?-?-?-?-?- SM- no vb crajon amezcua doing well 12/03/24 -?-?-?-?-?-?-?-?-?-?-?-?- 12w 3d 194 lb 119/79 Negative -?-?-?-?-?-?-?-?-?-?-?-?- Negative 160 -?-?-?-?-?-?-?-?-?-?-?-?- SM- having burni ng on urination after interoucrse only. some loss of taste and her tongue hurts, no significant whitening of tongue yet. 01/01/25 -?-?-?-?-?-?-?-?-?-?-?-?- 16w 4d 201 lb 6 oz 106/69 -?-?-?-?-?-?-?-?-?-?-?-?- 147 -?-?-?-?-?-?-?-?-?-?-?-?- JV- no lof, vagi nal bleeding, or cramping. Going to [facility] on a work trip soon. promethazine given for the flight. she knows not to continue JV- no lof, vaginal bleeding , or cramping. Going to [facility] on a work trip soon. promethazine given [...] Cosigner Signature: Date (if applicable) CC: ~ [facility] Work Phone: Progress note Author Mary Madrigal [facility] Note Date/Time April 05, 2025 11:15am [facility] Medical Records Department [address] [facility] [place] [address] OB Triage Progress Note 04/05/25 1046 MR#: [id number] Acct: [id number] Name: SHIRA ARBOLEDA Rep #:[id number] : 1990 34 From: Mary Madrigal CNM PCP: Dr. Braulio Bosch MD Status :DEP ANNAMARIE Simon DOS: Location: WPOUT Progress Notes Progress Note: Patient presents for triage evaluation secondary to shortness of breath and blurred vision. FHT: 135 Moderate variability reactive no decelerations category I tracing [place]: irregular mild Contractions Assessment and plan: pre e labs and normal BP, Reactive NST, reassuring maternaland status patient to ER for evaluation of shortness of breath. See problem list details for additional plan information. Charges/Coding Multi Select Codes Urinary/Genital Urinary/Genital CPT Codes: 31531-27 non-stress test Interp Assessment & Plan (1) [...] trimester COMMENT: PRR , TIFFANY 06/14/25, girl Tevin Gonsalves Ruby, Partner Chintan (6) History of marijuana use: COMMENT: Gummies last used 05/31, discussed random tox screens during (7) Hx of depression, currently : (8) FH: cleft lip and palate: COMMENT: Brother 04/05/25 1411 <Electronically signed by Mary rowland CNM> Date _ Mary Madrigal CNM Cosigner Signature (if applicable): Date CC: SMITA Madrigal; Dr. Braulio Bosch MD ~ Signed [facility] Work Phone: Progress note Author Dulce Villar [facility] Note Date/Time April 08, 2025 1: 34pm [facility]'[address], [address] [place] [address] OFFICE VISIT Date of Service: 04/08/25 MR#: [id number] Acct: [id number] Name: SHIRA ARBOLEDA Rep #: [id number] : 1990 Provider: Dr. Feng Villar MD Age/Sex: 34/F Location: [facility] [place] Status: Signed with Addenda ADDENDUM by Bertha Harvey on 04/08/25 at 1351 Office Procedure Documentation entered by Bertha Harvey 04/08/25 13:51: Immunizations Boostrix Tdap 2.5 Lf unit-8 mcg-5 Lf/0.5 mL intramuscular syringe Performing Provider: Dulce Villar MD Performing Location: [facility] Administered by: Bertha Harvey on 04/08/25 13:50 Dose Route Admin Location Dispensed Lot Number Expiration Date Pack age NDC NDC [employer] 0.5 mL IM Right Deltoid 0.5 mL [id number] 03/07/27 93515-081-51 [id number] Dynamic Signal- PASTEUR VIS Given Date VIS Provided VIS [...] H Intake Visit Reasons: 30 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: No Is patient in pain?: No [...] mg-folate no.1 1 mg-dha 300 mg capsule (PNV-Garvin) hydroxyzine HCl 25 mg tablet 25 mg [...] current occupational status: employed 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 Date Name GA/Weeks Outcome Route Bth Weight Infant Gen Labor Lgth Anesthesia Del Locatn Provider FOB 03/21/18 Justin 40 live - full term 9lbs 7oz Male epi dural [facility] Fines[facility] 06/12/19 Thakur-Goes by Tevin 40 live - full term 8l bs 8oz Male epidural [facility] Dr. Olena Kilpatrick 01/13/21 Isamar 40 live - full term 7lbs 6oz Female ep idural [facility] Dr. Olena Kilpatrick 07/10/24 elective Delivery Date: [...] vagi nal bleeding, or cramping. Going to [facility] on a work trip soon. promethazine given for the flight. she knows not to continue JV- no lof, vaginal bleeding , or cramping. Going to [facility] on a work trip soon. promethazine given [...] Immediate Larc, Signs and Symptoms of Preeclampsia, Infant Feeding No and Family Medical Leave or [...] Decrease spasm Improve motion of sacrum 04/08/25 2344 <Electronically signed by Dulce woodard MD> Date _ Dulce Patterson Signature: Date (if applicable) CC: ~ [facility] Work Phone: Reason for referral (narrative)No reason for referral information availableWMercy Health [facility] Work Phone: Summary Purpose Family History [...] January 13, 2021 7 :33am Power of Electrical Machine Builder No January 13, 2021 7:33am Advance Directive Response Recorded Date/ Time Living Will No January 13, 2021 6 :33am Power of Electrical Machine Builder No January 13, 2021 6:33am Advance Directive Response Recorded Date/ Time Living Will No June 16 11:16pm Power of Electrical Machine Builder No June 16, 2022 11:16pm Advance Directive Response Recorded Date/ Time Living Will No July 06 4:37pm Power of Electrical Machine Builder No July 06, 2022 4:37pm Advance Directive Response Recorded Date/ Time Living Will No July 06 5:37pm Power of Electrical Machine Builder No July 06, 2022 5:37pm Advance Directive Response Recorded Date/ Time Do you have a [facility] Power of Electrical Machine Builder? 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) THYROMEGALY BILATERAL THYROID NODULES COUGH EORDER- LABS [...] March 23, 2025 9:56am Supervision of high-risk Septe mber 2024 9:56am Chief Complaint Admit Date [...] 2025 3: 35pm Anxiety and depression March 23, 2 025 9:56am FH: cleft lip and palate March 23, 2025 9:56am GBS (group B streptococcus) UTI complica ting March 23, 2025 9:56am History of marijuana use March 23, 2025 9:56am Hx of depression, currently p regnant March 23, 2025 9:56am March 23, 2025 9:56am Supervision of high-risk [facility] 2024 9:56am Anxiety and depression April 05, 2 025 9:32am Blurred vision April 05, 2025 9:32am FH: cleft lip and palate April 05, 2025 9:32am GBS (group B streptococcus) UTI complica ting April 05, 2025 9:32am History of marijuana use April 05, 2025 9:32am Hx of depression, currently p regnant April 05, 2025 9:32am April 05, 2025 9:32am Supervision of high-risk [facility] 2024 9:32am Chief Complaint Admit Date 16 [...] March 23, 2025 9:56am Supervision of high-risk Septe mber 2024 9:56am Anxiety and depression April 05, 2 025 9:32am FH: cleft lip and palate April 05, 2025 9:32am GBS (group B streptococcus) UTI complica ting April 05, 2025 9:32am History of marijuana use April 05, 2025 9:32am Hx of depression, currently p regnant April 05, 2025 9:32am April 05, 2025 9:32am Supervision of high-risk [facility] 2024 9:32am Blurred vision April 05, 2025 9:32am Anxiety and depression April 08, 2025 12:46pm FH: cleft lip and palate April 08 12:46pm GBS (group B streptococcus) UTI complica ting April 08, 2025 12:46pm History of marijuana use April 08 12:46pm Hx of depression, currently p regnant April 08, 2025 12:46pm April 08, 2025 12 :46pm Supervision of high-risk Octob 2024 12:46pm Chief Complaint Admit Date 20 wk ob January 29, 2025 8:40 am 24 WK OB February 26, 2025 3: 35pm 28 WK OB/Glucose March 23, 2025 9:56am SCREEN FOR GESTATIONAL DM March 9:57am R/O PRE April 05, 2025 9:32am R/O PRE April 05, 2025 10:46am cp April 05, 2025 11:25am 30 WK OB April 08, 2025 12 :46pm 32 WK OB *r/s 06/08April 23, 2025 3 :27pm R/O PRE E May 01, 2025 1 1:48pm R/O PRE E May 02, 2025 1 2:03am Reason for Visit Admit Date FH: cleft lip and palate January 29, [...] March 23, 2025 9:56am Supervision of high-risk [facility] 2024 9:56am Anxiety and depression April 05 025 9:32am FH: cleft lip and palate April 05, 2025 9:32am GBS (group B streptococcus) UTI complica ting April 05, 2025 9:32am History of marijuana use April 05, 2025 9:32am Hx of depression, currently p regnant April 05, 2025 9:32am April 05, 2025 9:32am Supervision of high-risk [facility] 2024 9:32am Blurred vision April 05, 2025 9:32am Anxiety and depression April 08, 2025 12:46pm FH: cleft lip and palate April 08 12:46pm GBS (group B streptococcus) UTI complica ting April 08, 2025 12:46pm History of marijuana use April 08 12:46pm Hx of depression, currently p regnant April 08, 2025 12:46pm April 08, 2025 12 :46pm Supervision of high-risk Octob 2024 12:46pm Anxiety and depression April 23 3:27pm FH: cleft lip and palate April 23 2 025 3:27pm GBS (group B streptococcus) UTI complica ting April 23, 2025 3:27pm History of marijuana use April 23 2 025 3:27pm Hx of depression, currently p regnant April 23, 2025 3:27pm April 23, 2025 3 :27pm Supervision of high-risk Octob er 2024 3:27pm Anxiety and depression May 01 11:48pm FH: cleft lip and palate May 01 11:48pm GBS (group B streptococcus) UTI complica ting May 01, 2025 11:48pm History of marijuana use May 01 11:48pm Hx of depression, currently p regnant May 01, 2025 11:48pm May 01, 2025 1 1:48pm Supervision of high-risk Octob er 2024 11:48pm Additional Source Comments INFORMATION SOURCE (unrecogn ized section and content) DATE CREATED AUTHOR 12/10/2018 [facility] DATE CREATED AUTHOR AUTHOR'S ORGANIZ ATION 02/16/2025 [facility] DATE CREATED AUTHOR AUTHOR'S ORGANIZ ATION 05/15/2025 [facility] Care Teams (unrecognized sec tion and content) [...] 03, 2024 End: December 03, 2024 Dr. Dulec Villar MD Referring Provider Active Start: December [...] End: March 23, 2025 Bertha May NP, COUNTER ROLLER-C Attending Provider Active Start: March 23, 2025 [...] 2025 End: March 23, 2025 Bertha May COUNTER ROLLER, COUNTER ROLLER-C Attending physician Active Start: March 23, 2025 [...] 2025 End: March 26, 2025 Bertha May COUNTER ROLLER, COUNTER ROLLER-C Attending physician Active Start: March 26, 2025 End: March 26, 2025 Bertha May COUNTER ROLLER, COUNTER ROLLER-C Referring Provider Active Start: March 26, 2025 [...] 05, 2025 Dr. Alejandro [facility] Active Start: April 05, 2025 [...] Attending physician Active Start: April 08, 2025 Team Status: Inactive Member Role/Relationship Status [...] End: March 23, 2025 Bertha May NP, COUNTER ROLLER-C Attending physician Active Start: March 23, 2025 [...] 2025 End: March 26, 2025 Bertha May COUNTER ROLLER, COUNTER ROLLER-C Attending physician Active Start: March 26, 2025 End: March 26, 2025 Bertha May COUNTER ROLLER, COUNTER ROLLER-C Referring Provider Active Start: March 26, 2025 [...] April 05, 2025 Dr. Alejandro Gonzalez MD Attending physician Active Start: April 05, 2025 End: April 05, 2025 Dr. Alejandro [facility] Active Start: April 05, 2025 [...] 2025 End: April 08, 2025 Team Status: Inactive Member Role/Relationship Status Dates Dr. Braulio Bosch MD Primary care physician Act [place] Start: April 08, 2025 End: April 08, 2025 Dr. Dulce Villar MD Attending physician Active Start: April 08, 2025 End: April 08, 2025 Team Status: Inactive Member Role/Relationship Status Dates Dr. Braulio Bosch MD Primary care physician Act [place] Start: April 23, 2025 End: April 23, 2025 Dr. Braulio Bosch MD Referring Provider Active Start: April 23, 2025 End: April 23, 2025 Dr. Dulce Villar MD Attending physician Active Start: April 23, 2025 End: April 23, 2025 Team Status: Inactive Member Role/Relationship Status Dates Dr. Braulio Bosch MD Primary care physician Act [place] Start: May 01, 2025 End: May 02, 2025 Dr. Ashlyn Lagos DO Attending physician Acti ve Start: May 01, 2025 End: May 02, 2025 Dr. Ashlyn Lagos DO Referring Provider Activ e Start: May 01, 2025 End: May 02, 2025 Team Status: Active Member Role/Relationship Status Dates Dr. Braulio Bosch MD Primary care physician Act [place] Start: May 02, 2025 Dr. Ashlyn Lagos DO Attending physician Acti ve Start: May 02, 2025 Dr. Ashlyn Lagos DO Referring Provider Activ e Start: May 02, 2025 Dr. Ashlyn Lagos DO Nurse Practitioner Activ e Start: May 02, 2025 FOR RECORDS PERTAINING TO PATIENTS WHO [...] BE BASED ON THE PRIMARY CLINICAL RECORDS. [facility] [employer] [facility]. provides no warranty or guarantee of the accuracy or completeness of information in this document.
== END | disposition home or self-care (01) ==
LOC: US 15:28
PROVIDERS: PCP Family Medicine; Referring Provider Obstetrics & Gynecology; Visit Provider Obstetrics & Gynecology
DX: Z36.4 Encounter for antenatal screening for fetal growth retardation (principal); Z87.59 Personal history of other complications of pregnancy, childbirth and the puerperium
CPT/HCPCS: 76816

== ENCOUNTER → 2025-05-21 | Outpatient (CLI) | payer OTHER, SELFPAY ==
[2025-05-21 12:43] LABS: Hematocrit 36.0 % (37-47); Hemoglobin 11.8 g/dL (12.0-15.0); Immature Granulocytes Count 0.330 X10^3/uL (0.0-0.0); Mean Corp Hgb Conc 32.8 g/dL (32-36); Mean Corpuscular Volume 88.2 fL (81-99); Mean Platelet Vol. 9.1 fl (6.2-12.0); NRBC Flagged by Analyzer 0 % (0-5); Platelet Count 199 K/mm3 (150-450); RBC Distribution Width CV 12.7 % (11.6-14.6); RBC Distribution Width SD 40.6 fl (35.1-43.9); Red Blood Count 4.08 M/mm3 (4.2-5.4); White Blood Count 9.4 K/mm3 (4.4-11.0)
== END | disposition home or self-care (01) ==
LOC: BWCLAB 11:04
PROVIDERS: PCP Family Medicine; Visit Provider Advanced Practice Midwife
DX: O99.119 Other diseases of the blood and blood-forming organs and certain disorders involving the immune mechanism complicating pregnancy, unspecified trimester (principal); D69.6 Thrombocytopenia, unspecified; Z3A.00 Weeks of gestation of pregnancy not specified
CPT/HCPCS: 36415; 85025

== ENCOUNTER → 2025-05-25 | Outpatient (CLI) | payer OTHER, SELFPAY ==
[2025-05-25 10:32] LABS: Glucose Challenge Gest 1H 50g 150 mg/dL (70-140)
== END | disposition home or self-care (01) ==
PROVIDERS: PCP Family Medicine; Referring Provider Obstetrics & Gynecology; Visit Provider Obstetrics & Gynecology
DX: O36.60X0 Maternal care for excessive fetal growth, unspecified trimester, not applicable or unspecified (principal); Z3A.00 Weeks of gestation of pregnancy not specified
CPT/HCPCS: 36415; 82950

== ENCOUNTER → 2025-05-31 | Outpatient (CLI) | payer OTHER, SELFPAY ==
[2025-05-31 09:57] LABS: ROM Internal Control Test YES-OK TO RESULT pt. (Internal QC); ROM Patient Test Negative (Negative); Record Kit Lot#, ROM+ K3607
== END | disposition home or self-care (01) ==
LOC: LABSPEC 09:18
PROVIDERS: PCP Family Medicine; Visit Provider Obstetrics & Gynecology
DX: N89.8 Other specified noninflammatory disorders of vagina (principal)
CPT/HCPCS: 84112

== ENCOUNTER 2025-06-01 08:04 | Inpatient (IN) | payer OTHER, SELFPAY ==
[2025-06-01] VITALS (53 sets, daily range): BP systolic 79–154; BP diastolic 41–91; PULSE 86–135; RESP 16–18; TEMP 36.1–37.3; O2SAT 92–100; BMI 39.6
--- OUTSIDE RECORDS SUMMARY | 2025-06-01 07:32 | XMS RPT_ITS | CCD ---
Author Organization [facility] CliniSyde Care Team Providers Care Fiber Optic Assembler Name Role Phone Dr. Ariadne Rivers Primary Care Provider Dr. Ariadne Rivers Referring Provider Dr. Dulce Villar Attending Provider Dr. Ariadne Rivers Primary Care Provider Dr. Ariadne Rivers Referring Provider Dr. Dulce Villar Attending Provider MD Danitza [facility] Primary Care Provider Unav rosa elena Bosch MD [facility] Referring Provider Unavail Dr. Tang Diaz Attending Provider Danitza CHAUHAN, Dr. Ramsey Primary Care Provider Dr. Dulce Villar MD Attending Provider Dr. Dulce Villar MD Referring Provider [phone] Dr. Braulio Bosch MD Referring Provider Stacy Barron RN Attending Provider Unavaillilian Bosch MD, Dr. Ramsey Primary Care Provider Dr. Dulce Villar MD Attending Provider Dr. Dulce Villar MD Referring Provider [phone] Dr. Braulio Bosch MD Primary Care Provider Dr. Braulio Bosch MD Referring Provider [phone] Dr. Dulce Villar MD Attending Provider [phone] Dr. Ashlyn Lagos DO Attending Provider Rohan [...] Olena CHAUHAN, Dr. Cardona Referring Provider Yadira PRODUCTION OPERATOR-CBertha Attending Provider [phone] Danitza CHAUHAN, Dr. Ramsey [facility] Physicia n Danitza CHAUHAN, Dr. Ramsey Referring Provider [phone] Dr. Ashlyn Lagos DO Attending Physician Rohan ORDOÑEZ, Mary Attending Physician [phone] Olena CHAUHAN, Dr. Cardona Attending Physician Yadira PRODUCTION OPERATOR-CBertha Attending Physician [phone] Dr. Dulce Villar MD Referring Provider Yadira PRODUCTION OPERATOR-CBertha Referring Provider [phone] Mary Madrigal CNM [...] Unavailable Dulce Villar Referring Unavailable Ranney, Christopher Referring Unavailable [...] Unavailable Ranney, Christopher Primary Care Unavailable Yadira PRODUCTION OPERATOR, Bertha Attending Unavailable MarcanthonyDulce Attending Unavailable Ranney, [...] Unavailable Ranney, Christopher Primary Care Unavailable Yadira PRODUCTION OPERATOR, Bertha Attending Unavailable Yadira PRODUCTION OPERATOR, Bertha Referring Unavailable [facility], [facility] Referring Unavailable [facility] Primary Care Unavailable Dulce Villar Attending Unavailable [facility] Primary Care Unavailable Alejandro Gonzalez Attending Unavailable [facility] Unavailable Dulce Villar Attending Unavailable Dulce Villar Referring Unavailable [facility] Primary Care Unavailable Ashlyn Lagos Attending Unavailabl e Ashlyn Lagos Referring Unavailabl e [facility] Primary [facility] Unavailable Mary Madrigal Attending Unavailable Mary Madrigal Referring Unavailable [facility] Primary Care Unavailable Dulce Villar Attending Unavailable Ranney [facility] [place] Primary Care Unavaila ble Ranney [facility], [facility] Referring Unavaila ble Dulce Villar Attending Unavailable [facility] Unavailable [place] [place] Referring Unavailable Dulce Villar Attending Unavailable [facility], [place] Referring Unavailable [facility] Primary Care Unavailable Dulce Villar Attending Unavailable Dulce Villar Attending Unavailable [facility] Primary Care Unavailable Dulce Villar Attending Unavailable [facility] Primary Care Unavailable Dulce Villar Referring Unavailable Allergies Allergy Classification Reported Allergen(s) Allergy Type Date of Onset Reaction(s) Facility (20 sources) Amoxicillin Drug Allergy 1 [facility] (20 sources) Naproxen Drug Allergy 1 [facility] (20 sources) Sulfamethoxazole Drug Allergy 1 [facility] (20 sources) Trimethoprim Drug Allergy 1 [facility] (15 sources) natural latex rubber Allergy to substance [address] [place] [address] Comment on above: condoms- vaginal, sw elling Burning (1 source) Amoxicillin Drug Allergy 5 [facility] (1 source) Naproxen Drug Allergy 5 [facility] (1 source) natural latex rubber Drug allergy (disorder) 5 [facility] (1 source) Sulfamethoxazole Drug Allergy 5 [facility] (1 source) Trimethoprim Drug Allergy 5 [facility] Medications Current Medications Medication Drug Class(es) [...] hours PRN Complies with drug therapy Mv-Mins 05-Mrhb-Ngyan No.1-Dha ([facility]) 28-1-300 mg capsule (15 sources) Start: 10-22-2024 Mv-Mins 00-Sfwg-Ktsmt No.1-Dha ([place]) 28-1-300 mg capsule Active 1 NMA PO DAILY October 22, 2024 12:00am Complies with drug therapy Start: 10-22-2024 Start: 10-22-2024 Mv-Mins 71-Iro n-Folic No.1-Dha ([place]) 28-1-300 mg capsule Active NMA PO October 22, 2024 12:00am [place] (Nk) (4 sources) Start: 05-17-[address] [place] [address] [place] (Nk) A ctive May 17, 2022 1:00am Start: 05-17-[address] [place] [address] [place] (Nk) A ctive May 17, 2022 12:00am [...] 1:11am must administer with a meal/food nystatin 700998 unt/ml oral suspension (15 sources) Polyene Antifungal Start: 07-03-2024 End: 09-01-2024 take [id number] [IU] by mouth four times daily Nystatin 100,000 unit/mL suspension Discontinued 4 mL PO ONCE 60 July 03, 2024 1:00am September 01, 2024 2:41pm 400,000 to 600,000 units 4 times daily; swish in the mouth and retain for as long as possible (several minutes) before swallowing. Duration is for 7 to 14 days Pnv #68-Akyn-Xlioy Acid-Omega3 30 mg iron-10 mg iron-1 mg capsule (8 sources) Start: 11-18-2018 End: 03-02-2020 Pnv #99-Wril-Ttnyd Acid-Omega3 30 mg iron-10 mg iron-1 mg capsule Discontinued 1 NMA PO DAILY 0 November 18, 2018 12:00am March 02, 2020 8:42am Start: 11-18-2018 End: 03-02-2020 Pnv #82-Ohbi-Xcrfi Acid-Omeg a3 30 mg iron-10 mg iron-1 mg capsule Discontinued 1 NMA PO DAILY November 18, 2018 12:00am March 02, 2020 8:42am Pnv #69-Oats-Wpbbw Acid-Dha 35 mg iron-5 mg iron-1 mg capsule (8 sources) Start: 07-26-2017 End: 05-05-2018 Pnv #26-Pjpc-Otlnj Acid-Dha 35 mg iron-5 mg iron-1 mg capsule Discontinued 1 NMA PO daily July 26, 2017 1:00am May 05, 2018 10:36am Start: 07-26-2017 End: 05-05-2018 Pnv #47-Jxnp-Qglgp Acid-Dha 35 mg iron-5 mg iron-1 mg capsule Discontinued 1 NMA PO daily July 26, 2017 1:00am May 05, 2018 10:36am Pnv 82-Exhx-Wnjvv Ffaf-Whkdj-9 30 mg iron-10 mg iron-1 mg capsule (7 sources) Start: 11-18-2018 End: 03-02-2020 Pnv 68-Guqm-Iowrh Slgk-Ngibv-5 30 mg iron-10 mg iron-1 mg capsule Discontinued 1 NMA PO DAILY 0 November 18, 2018 12:00am March 02, 2020 8:42am Pnv No.45-Xdsy-Czspm Acid-Dha 35 mg iron-5 mg iron-1 mg capsule (7 sources) Start: 07-26-2017 End: 05-05-2018 Pnv No.58-Xfwy-Qlnkr Acid-Dha 35 mg iron-5 mg iron-1 mg [...] 1 tablet by mouth once at bedtime Prenat.Vits,Carson,Mkc-Aeww-Buoro Discontin ued 1 TABLET PO AT BEDTIME March 07, 2020 12:00am May 03, 2022 8:19am Prenat.Vits,Carson,Ykm-Blqj-Cwl ic tablet (15 sources) Start: 03-07-2020 End: 05-03-2022 Prenat.Vits,Carson,Twy-Bcbo-Vqa ic tablet Discontinued 1 {tbl} PO AT BEDTIME March 07, 2020 12:00am May 03, 2022 8:19am Check with primary doctor Start: 03-07-2020 End: 05-03-2022 Prenat.Vits,Carson,Kcp-Azfh-Qxl ic tablet Discontinued 1 {tbl} PO AT [...] 09-03-2024 Chronic Comment on above: see counselor; jdaa taylor Bacterial infection; unspecified site (2 sources) [...] above: PRR TIFFANY 03/15/18 Finesse; 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 Date Name GA/Weeks Outcome Route Bth Weight Gen Labor Lgth Anesthesia Del Locatn Provider FOB 03/21/18 Justin 40 live - full term 9lbs 7oz Male epidural [facility] S NGOZI Kilpatrick 06/12/19 Thakur-Goes by Tevin 40 live - full term 8lbs 8oz Male epidural [facility] Dr. Olena Kilpatrick 01/13/21 Isamar 40 live - full term 7lbs 6oz Female epidural [facility] Hafsa Kilpatrick 07/10/24 elective Delivery Date: 03/21/18 [...] gestational age (more content not included)... Normal [facility] AST(SGOT)on 05-02-2025 AST [Catalytic activity/Vol] 20 U/L Normal <=31 [facility] Comment on above: Performed By: #### L 501.0900, L501.4405, L501.4100, L501.1400, L100.0500, L501.1105 #### [facility] [address] [facility] [place], [place], [id number] Alanine Aminotransferas (SGP T)on 05-02-2025 ALT [Catalytic activity/Vol] 14 U/L Normal <=34 [facility] Comment on above: Performed By: #### L 501.0900, L501.4405, L501.4100, L501.1400, L100.0500, L501.1105 #### [facility] [address] [place], [address] CBC-Complete Blood Cnt No Di ffon 05-02-2025 Erythrocyte distribution width (RBC) [Ratio] 12.6 % Normal 11.6-14.6 [facility] Comment on above: Performed By: #### L 501.0900, L501.4405, L501.4100, L501.1400, L100.0500, L501.1105 #### [facility] [address] [place], [address] Hematocrit (Bld) [Volume fraction] 32.1 % Low 37-47 [facility] Comment on above: Performed By: #### L 501.0900, L501.4405, L501.4100, L501.1400, L100.0500, L501.1105 #### [facility] [address] [place], [address] Hemoglobin (Bld) [Mass/Vol] 11.1 g/dL Low 12.0-15.0 [facility] Comment on above: Performed By: #### L 501.0900, L501.4405, L501.4100, L501.1400, L100.0500, L501.1105 #### [facility] [address] [place], [address] MCH (RBC) [Entitic mass] 29.8 pg Normal 27.0-32.0 [facility] Comment on above: Performed By: #### L 501.0900, L501.4405, L501.4100, L501.1400, L100.0500, L501.1105 #### [facility] [address] [place], [address] MCHC (RBC) [Mass/Vol] 34.6 g/dL Normal 32-36 [facility] Comment on above: Performed By: #### L 501.0900, L501.4405, L501.4100, L501.1400, L100.0500, L501.1105 #### [facility] [address] [place], [address] MCV (RBC) [Entitic vol] 86.3 fL Normal 81-99 [facility] Comment on above: Performed By: #### L 501.0900, L501.4405, L501.4100, L501.1400, L100.0500, L501.1105 #### [facility] [address] [place], [address] Platelet mean volume (Bld) [Entitic vol] 8.8 fL Normal 6.2-12.0 [facility] Comment on above: Performed By: #### L 501.0900, L501.4405, L501.4100, L501.1400, L100.0500, L501.1105 #### [facility] [address] [place], [address] Platelets (Bld) [#/Vol] 147 10*3/uL Low 150-450 [facility] Comment on above: Performed By: #### L 501.0900, L501.4405, L501.4100, L501.1400, L100.0500, L501.1105 #### [facility] [address] [place], [address] RBC (Bld) [#/Vol] 3.72 10*6/uL Low 4.2-5.4 [facility] Comment on above: Performed By: #### L 501.0900, L501.4405, L501.4100, L501.1400, L100.0500, L501.1105 #### [facility] [address] [place], [address] RDW SD 39.6 fl Normal 35.1-43.9 [facility] Comment on above: Performed By: #### L 501.0900, L501.4405, L501.4100, L501.1400, L100.0500, L501.1105 #### [facility] [address] [place], [address] WBC (Bld) [#/Vol] 10.4 10*3/uL Normal 4.4-11.0 [facility] Comment on above: Performed By: #### L 501.0900, L501.4405, L501.4100, L501.1400, L100.0500, L501.1105 #### [facility] [address] [place], [address] Erythrocyte distribution wid th ratioOrdered By: Ashlyn Paredes on 05-02-2025 Erythrocyte distribution width (RBC) [Ratio] 12.6 % 11.6-14.6 [facility] Erythrocyte distribution wid th standard deviationOrdered By: Ashlyn Paredes on 05-02-2025 Erythrocyte distribution width (RBC) [Ratio] 39.6 fl 35.1-43.9 [facility] Glomerular filtration rate ( GFR) estimation/1.73 sq m using serum, plasma, or whole bOrdered By: Ashlyn Paredes on 05-02-2025 GFR/1.73 sq M.predicted among non-blacks MDRD (S/P/Bld) [Vol rate/Area] 124 mL/min/{1.73_m2} >60 [facility] Comment on above: mL/min/1.73m2 CKD-EP I Creatinine Equation (2020) Hematocrit Auto (Bld) [Volum e fraction]Ordered By: Ashlyn Paredes on 05-02-2025 Hematocrit (Bld) [Volume fraction] 32.1 % Low 37-47 [facility] Hemoglobin measurementOrdere d By: Ashlyn Paredes on 05-02-2025 Hemoglobin (Bld) [Mass/Vol] 11.1 g/dL Low 12.0-15.0 [facility] Laboratory - Chemistry and C hemistry - challengeOrdered By: Ashlyn Paredes on 05-02-2025 AST [Catalytic activity/Vol] 20 U/L <32 [facility] MCV (mean corpuscular volume ) determinationOrdered By: Ashlyn Paredes on 05-02-2025 MCV (RBC) [Entitic vol] 86.3 fL 81-99 [facility] Mean corpuscular hemoglobin (MCH) determinationOrdered By: Ashlyn Paredes on 05-02-2025 MCH (RBC) [Entitic mass] 29.8 pg 27.0-32.0 [facility] Mean corpuscular hemoglobin concentration (MCHC) determinationOrdered By: Ashlyn Paredes on 05-02-2025 MCHC (RBC) [Mass/Vol] 34.6 g/dL 32-36 [facility] Mean platelet volume determi nationOrdered By: Ashlyn Paredes on 05-02-2025 Platelet mean volume (Bld) [Entitic vol] 8.8 fL 6.2-12.0 [facility] OB Triage Physician Noteon 1 OB Triage Physician Note [facility] Medical Records Department [address] [place] [address] OB Triage Physician Note 05/02/25 0003 MR#: [id number] Acct: [id number] Name: SHIRA ARBOLEDA Rep #: [id number] : 1990 34 From: Ashlyn Lagos DO PCP: Dr. 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 Date Name GA/Weeks Outcome Route Bth Weight Gen Labor Lgth Anesthesia Del Locatn Provider FOSergio 03/21/18 Justin 40 live - full term 9lbs 7oz Male epidural [facility] Natali Kilpatrick 06/12/19 Blaze-Goes by Tevin 40 live - full term 8lbs 8oz Male epidural [facility] Dr. Olena Kilpatrick 01/13/21 Isamar 40 live - full term 7lbs 6oz Female epidural [facility] Hafsa vinnie Kilpatrick 07/10/24 elective Delivery Date: [...] list details (more content not included)... Normal [facility] Platelet countOrdered By: Deion Paredes on 05-02-2025 Platelets (Bld) [#/Vol] 147 10*3/uL Low 150-450 [facility] Protein+Creatinine Ratio,Uri neon 05-02-2025 PROT:CRE RATIO 158 mg/g CRE Normal 0-200 [facility] Comment on above: Performed By: #### L 501.0900, L501.4405, L501.4100, L501.1400, L100.0500, L501.1105 #### [facility] [address] [place], [address] PROTEIN,UR.RAN. < 6.0 Normal 0.0-12.0 [facility] Comment on above: Performed By: #### L 501.0900, L501.4405, L501.4100, L501.1400, L100.0500, L501.1105 #### [facility] [address] [place], [address] UR CREAT 28.30 mg/dL Normal 28.00-217.00 [facility] Comment on above: Performed By: #### L 501.0900, L501.4405, L501.4100, L501.1400, L100.0500, L501.1105 #### [facility] [address] [place], [place], [id number] (701) RBC Auto (Bld) [#/Vol]Ordere d By: Ashlyn Lena on 05-02-2025 RBC (Bld) [#/Vol] 3.72 10*6/uL Low 4.2-5.4 [facility] Random urine creatinine chaitanya urement (mass/volume)Ordered By: Ashlyn Paredes on 05-02-2025 Creatinine Unsp time (U) [Mass/Vol] 28.30 mg/dL 28.00-217.00 [facility] Serum Creatinine AND GFRon 1 Creatinine [Mass/Vol] 0.55 mg/dL Low 0.70-1.20 [facility] Comment on above: Performed By: #### L 501.0900, L501.4405, L501.4100, L501.1400, L100.0500, L501.1105 #### [facility] [address] [place], [address] ECRCL 181.31 ml/min Normal 50-250 [facility] Comment on above: Performed By: #### L 501.0900, L501.4405, L501.4100, L501.1400, L100.0500, L501.1105 #### [facility] [address] [place], [place], [id number] (651) GFR/1.73 sq M.predicted among non-blacks MDRD (S/P/Bld) [Vol rate/Area] 124 mL/min/{1.73_m2} Normal >60 [facility] Comment on above: Result Comment: mL/m in/1.73m2 CKD-EPI Creatinine Equation (2020) Performed By: #### L 501.0900, L501.4405, L501.4100, L501.1400, L100.0500, L501.1105 #### [facility] [address] [place], [place], [address] Serum creatinine measurement (mass/volume)Ordered By: Ashlyn Paredes on 05-02-2025 Creatinine [Mass/Vol] 0.55 mg/dL Low 0.70-1.20 [facility] Serum or plasma alanine dey otransferase (ALT) measurementOrdered By: Ashlyn Paredes on 05-02-2025 ALT [Catalytic activity/Vol] 14 U/L <35 [facility] Serum or plasma uric acid me asurement (mass/volume)Ordered By: Ashlyn Paredes on 05-02-2025 Urate [Mass/Vol] 4.7 mg/dL 2.6-6.0 [facility] Comment on above: The drugs N-Acetylcy steine and Metamizole may falsely depress this assay. Uric Acidon 05-02-2025 URIC 4.7 mg/dL Normal 2.6-6.0 [facility] Comment on above: Result Comment: The drugs N-Acetylcysteine and Metamizole may falsely depress this assay. Performed By: #### L 501.0900, L501.4405, L501.4100, L501.1400, L100.0500, L501.1105 #### [facility] [address] [place], [address] Urine protein measurement (m ass/volume)Ordered By: Ashlyn Paredes on 05-02-2025 Protein (U) [Mass/Vol] mg/dL 0.0-12.0 [facility] Urine protein/creatinine mas s ratioOrdered By: Ashlyn Paredes on 05-02-2025 Protein/Creatinine (U) [Mass ratio] 158 mg/g CRE 0-200 [facility] White blood cell (WBC) count Ordered By: Ashlyn Paredes on 05-02-2025 WBC (Bld) [#/Vol] 10.4 10*3/uL 4.4-11.0 [facility] Laboratory - Chemistry and C hemistry - challengeOrdered By: Dulce Villar on 04-23-2025 Glucose Ql (U) Negative [facility] Laboratory - UrinalysisOrder ed By: Dulce Villar on 04-23-2025 Protein Ql (U) Negative [facility] Asset Protection Professional Office Visit Reporton 04-23-2025 Asset Protection Professional Office Visit Report [facility] [address], [address] [place] [address] OFFICE VISIT Date of Service: 04/23/25 MR#: [id number] Acct: [id number] Name: SHIRA ARBOLEDA Rep #: [id number] : 1990 Provider: Dr. Dulce sanchez MD Age/Sex: 34/F [place] [facility] [place] Status: Signed Intake Vital Signs 03/23/25 10:00 04/08/25 13:03 04/23/25 15:32 04/23/25 15:34 Height 5 ft 5 in 5 ft 5 in 5 ft 5 in 5 ft 5 in Weight: 235 lb 8 oz BMI 39.2 BP 106/72 Intake Visit Reasons: 33 WK OB *r/s 06/08 Clinical Technologist Required: No Is patient in pain?: No [...] mg-folate no.1 1 mg-dha 300 mg capsule (PNV-[place]) hydroxyzine HCl 25 mg tablet 25 mg [...] current occupational status: employed current occupation: Certified [employer] current occupational exposures/hazards: No pets and animals: No history of recent travel: Yes ([place], [place], [place], [facility]) out of state: Yes out of [...] physical activity do you participate in: none naomi/holiness: None seatbelt use: always do you feel safe at home: Yes additional social history: FOB/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 Date Name GA/Weeks Outcome Route Bth Weight Gen Labor Lgth Anesthesia Del Locatn Provider FOB 03/21/18 Justin 40 live - full term 9lbs 7oz Male epidural [facility] S NGOZI Kilpatrick 06/12/19 Thakur-Goes by Tevin 40 live - full term 8lbs 8oz Male epidural [facility] Dr. Olena Kilpatrick 01/13/21 Isamar 40 live [...] placed. Relevan (more content not included)... Normal [facility] Absolute lymphocyte countOrd ered By: Dulce Villar on 04-08-2025 Lymphocytes Auto (Unsp spec) [#/Vol] 2.12 10*3/uL 0.83-4.51 [facility] Absolute neutrophil countOrd ered By: Dulce Villar on 04-08-2025 Neutrophils (Bld) [#/Vol] 5.4 10*3/uL 2.0-7.7 [facility] Anion gap in Serum or Plasma Ordered By: Dulce Villar on 04-08-2025 Anion gap [Moles/Vol] 11 mmol/L 5-15 [facility] Automated lymphocyte count a s percentage of total leukocytesOrdered By: Dulce Villar on 04-08-2025 Lymphocytes/100 WBC Auto (Unsp spec) 25.2 % 19-41 [facility] BUN/creatinine ratioOrdered By: Dulce Villar on 04-08-2025 Urea nitrogen/Creatinine [Mass ratio] 13.6 mg/mg 10-20 [facility] Basophil percentageOrdered B y: Dulce Villar on 04-08-2025 Basophils/100 WBC (Bld) 0.6 % 0-1 [facility] Bilirubin, totalOrdered By: Dulce Villar on 04-08-2025 Bilirubin [Mass/Vol] 0.20 mg/dL 0.00-1.30 [facility] CBC W/Diff, Automatedon Absolute Lymph 2.12 X10 3/uL Normal 0.83-4.51 [facility] Comment on above: Performed By: #### L 501.0900, L501.4405, L501.4100, L501.1400, L100.0500, L501.1105 #### [facility] [address] [place], [address] Absolute Neut 5.4 X10 3/uL Normal 2.0-7.7 [facility] [facility] Comment on above: Performed By: #### L 501.0900, L501.4405, L501.4100, L501.1400, L100.0500, L501.1105 #### [facility] [address] [place], [address] Basophils/100 WBC (Bld) 0.6 % Normal 0-1 [facility] Comment on above: Performed By: #### L 501.0900, L501.4405, L501.4100, L501.1400, L100.0500, L501.1105 #### [facility] [address] [place], [address] Eosinophils/100 WBC (Bld) 1.0 % Normal 0-5 [facility] Comment on above: Performed By: #### L 501.0900, L501.4405, L501.4100, L501.1400, L100.0500, L501.1105 #### [facility] [address] [place], [address] Erythrocyte distribution width (RBC) [Ratio] 12.7 % Normal 11.6-14.6 [facility] Comment on above: Performed By: #### L 501.0900, L501.4405, L501.4100, L501.1400, L100.0500, L501.1105 #### [facility] [address] [place], [address] Hematocrit (Bld) [Volume fraction] 34.7 % Low 37-47 [facility] Comment on above: Performed By: #### L 501.0900, L501.4405, L501.4100, L501.1400, L100.0500, L501.1105 #### [facility] [address] [place], [address] Hemoglobin (Bld) [Mass/Vol] 11.6 g/dL Low 12.0-15.0 [facility] Comment on above: Performed By: #### L 501.0900, L501.4405, L501.4100, L501.1400, L100.0500, L501.1105 #### [facility] [address] [place], [address] IG% 1.700 High 0.0-0.9 [facility] Comment on above: Result Comment: IG% - Immature Granulocytes (promyelocytes, myelocytes and metamyelocytes) > 1% indicates that a LEFT SHIFT is Present. Performed By: #### L 501.0900, L501.4405, L501.4100, L501.1400, L100.0500, L501.1105 #### [facility] [address] [place], [address] Lymphocytes/100 WBC (Bld) 25.2 % Normal 19-41 [facility] Comment on above: Performed By: #### L 501.0900, L501.4405, L501.4100, L501.1400, L100.0500, L501.1105 #### [facility] [address] [place], [address] MCH (RBC) [Entitic mass] 29.1 pg Normal 27.0-32.0 [facility] Comment on above: Performed By: #### L 501.0900, L501.4405, L501.4100, L501.1400, L100.0500, L501.1105 #### [facility] [address] [place], [address] MCHC (RBC) [Mass/Vol] 33.4 g/dL Normal 32-36 [facility] Comment on above: Performed By: #### L 501.0900, L501.4405, L501.4100, L501.1400, L100.0500, L501.1105 #### [facility] [address] [place], [address] MCV (RBC) [Entitic vol] 87.2 fL Normal 81-99 [facility] Comment on above: Performed By: #### L 501.0900, L501.4405, L501.4100, L501.1400, L100.0500, L501.1105 #### [facility] [address] [place], [address] Monocytes/100 WBC (Bld) 7.5 % Normal 0-10 [facility] Comment on above: Performed By: #### L 501.0900, L501.4405, L501.4100, L501.1400, L100.0500, L501.1105 #### [facility] [address] [place], [address] Neutrophils/100 WBC (Bld) 64.0 % Normal 47-70 [facility] Comment on above: Performed By: #### L 501.0900, L501.4405, L501.4100, L501.1400, L100.0500, L501.1105 #### [facility] [address] [place], [address] Nucleated RBC (Bld) [#/Vol] 0 10*3/uL Normal 0-5 [facility] Comment on above: Performed By: #### L 501.0900, L501.4405, L501.4100, L501.1400, L100.0500, L501.1105 #### [facility] [address] [place], [address] Platelet mean volume (Bld) [Entitic vol] 9.2 fL Normal 6.2-12.0 [facility] Comment on above: Performed By: #### L 501.0900, L501.4405, L501.4100, L501.1400, L100.0500, L501.1105 #### [facility] [address] [place], [address] Platelets (Bld) [#/Vol] 189 10*3/uL Normal 150-450 [facility] Comment on above: Performed By: #### L 501.0900, L501.4405, L501.4100, L501.1400, L100.0500, L501.1105 #### [facility] [address] [place], [address] RBC (Bld) [#/Vol] 3.98 10*6/uL Low 4.2-5.4 [facility] Comment on above: Performed By: #### L 501.0900, L501.4405, L501.4100, L501.1400, L100.0500, L501.1105 #### [facility] [address] [place], [address] RDW SD 40.1 fl Normal 35.1-43.9 [facility] Comment on above: Performed By: #### L 501.0900, L501.4405, L501.4100, L501.1400, L100.0500, L501.1105 #### [facility] [address] [place], [address] WBC (Bld) [#/Vol] 8.4 10*3/uL Normal 4.4-11.0 [facility] Comment on above: Performed By: #### L 501.0900, L501.4405, L501.4100, L501.1400, L100.0500, L501.1105 #### [facility] [address] [place], [address] Carbon dioxide, total [Moles /volume] in Central venous bloodOrdered By: Dulce Villar on 04-08-2025 CO2 [Moles/Vol] 20.7 mmol/L Low 21.0-32.0 [facility] Chloride assayOrdered By: Paolo Villar on 04-08-2025 Chloride [Moles/Vol] 103 mmol/L 98-108 [facility] Comprehensive Metabolic Prof ilon 04-08-2025 Albumin [Mass/Vol] 3.6 g/dL Normal 3.5-5.0 [facility] Comment on above: Performed By: #### L 501.0900, L501.4405, L501.4100, L501.1400, L100.0500, L501.1105 #### [facility] [address] [place], [address] Albumin/Globulin [Mass ratio] 1.4 {ratio} Normal 0.9-2.4 [facility] Comment on above: Performed By: #### L 501.0900, L501.4405, L501.4100, L501.1400, L100.0500, L501.1105 #### [facility] [address] [place], [address] ALK PHOS 102 U/L Normal 35-104 [facility] Comment on above: Performed By: #### L 501.0900, L501.4405, L501.4100, L501.1400, L100.0500, L501.1105 #### [facility] [address] [place], [address] ALT [Catalytic activity/Vol] 12 U/L Normal <=34 [facility] Comment on above: Performed By: #### L 501.0900, L501.4405, L501.4100, L501.1400, L100.0500, L501.1105 #### [facility] [address] [place], [address] AST [Catalytic activity/Vol] 19 U/L Normal <=31 [facility] Comment on above: Performed By: #### L 501.0900, L501.4405, L501.4100, L501.1400, L100.0500, L501.1105 #### [facility] [address] [place], [address] Bilirubin [Mass/Vol] 0.20 mg/dL Normal 0.00-1.30 [facility] Comment on above: Performed By: #### L 501.0900, L501.4405, L501.4100, L501.1400, L100.0500, L501.1105 #### [facility] [address] [place], [address] BUN/CRE 13.6 RATIO Normal 10-20 [facility] Comment on above: Performed By: #### L 501.0900, L501.4405, L501.4100, L501.1400, L100.0500, L501.1105 #### [facility] [address] [place], [address] Calcium [Mass/Vol] 8.5 mg/dL Normal 7.6-11.0 [facility] Comment on above: Performed By: #### L 501.0900, L501.4405, L501.4100, L501.1400, L100.0500, L501.1105 #### [facility] [address] [place], [address] Chloride [Moles/Vol] 103 mmol/L Normal 98-108 [facility] Comment on above: Performed By: #### L 501.0900, L501.4405, L501.4100, L501.1400, L100.0500, L501.1105 #### [facility] [address] [place], [address] CO2 [Moles/Vol] 20.7 mmol/L Low 21.0-32.0 [facility] Comment on above: Performed By: #### L 501.0900, L501.4405, L501.4100, L501.1400, L100.0500, L501.1105 #### [facility] [address] [place], [address] Creatinine [Mass/Vol] 0.51 mg/dL Low 0.70-1.20 [facility] Comment on above: Performed By: #### L 501.0900, L501.4405, L501.4100, L501.1400, L100.0500, L501.1105 #### [facility] [address] [place], [address] GAP 11 Normal 5-15 [facility] Comment on above: Performed By: #### L 501.0900, L501.4405, L501.4100, L501.1400, L100.0500, L501.1105 #### [facility] [address] [place], [address] GFR/1.73 sq M.predicted among non-blacks MDRD (S/P/Bld) [Vol rate/Area] 127 mL/min/{1.73_m2} Normal >60 [facility] Comment on above: Result Comment: mL/m in/1.73m2 CKD-EPI Creatinine Equation (2020) Performed By: #### L 501.0900, L501.4405, L501.4100, L501.1400, L100.0500, L501.1105 #### [facility] [address] [place], [address] Globulin (S) [Mass/Vol] 2.6 g/dL Normal 2.2-4.2 [facility] Comment on above: Performed By: #### L 501.0900, L501.4405, L501.4100, L501.1400, L100.0500, L501.1105 #### [facility] [address] [place], [address] Glucose [Mass/Vol] 75 mg/dL Normal 70-99 [facility] Comment on above: Performed By: #### L 501.0900, L501.4405, L501.4100, L501.1400, L100.0500, L501.1105 #### [facility] [address] [place], [address] Potassium [Moles/Vol] 4.0 mmol/L Normal 3.3-5.1 [facility] Comment on above: Performed By: #### L 501.0900, L501.4405, L501.4100, L501.1400, L100.0500, L501.1105 #### [facility] [address] [place], [address] Sodium [Moles/Vol] 135 mmol/L Normal 133-145 [facility] Comment on above: Performed By: #### L 501.0900, L501.4405, L501.4100, L501.1400, L100.0500, L501.1105 #### [facility] [address] [place], [address] T PROT 6.2 g/dL Normal 5.9-8.4 [facility] Comment on above: Performed By: #### L 501.0900, L501.4405, L501.4100, L501.1400, L100.0500, L501.1105 #### [facility] [address] [place], [address] Urea nitrogen [Mass/Vol] 7 mg/dL Normal 4-19 [facility] Comment on above: Performed By: #### L 501.0900, L501.4405, L501.4100, L501.1400, L100.0500, L501.1105 #### [facility] [address] [place], [address] Eosinophil percentageOrdered By: Dulce Villar on 04-08-2025 Eosinophils/100 WBC (Bld) 1.0 % 0-5 [facility] Erythrocyte distribution wid th ratioOrdered By: Dulce Villar on 04-08-2025 Erythrocyte distribution width (RBC) [Ratio] 12.7 % 11.6-14.6 [facility] Erythrocyte distribution wid th standard deviationOrdered By: Dulce Villar on 04-08-2025 Erythrocyte distribution width (RBC) [Ratio] 40.1 fl 35.1-43.9 [facility] Glomerular filtration rate ( GFR) estimation/1.73 sq m using serum, plasma, or whole bOrdered By: Dulce Villar on 04-08-2025 GFR/1.73 sq M.predicted among non-blacks MDRD (S/P/Bld) [Vol rate/Area] 127 mL/min/{1.73_m2} >60 [facility] Comment on above: mL/min/1.73m2 CKD-EP I Creatinine Equation (2020) Hematocrit Auto (Bld) [Volum e fraction]Ordered By: Dulce Villar on 04-08-2025 Hematocrit (Bld) [Volume fraction] 34.7 % Low 37-47 [facility] Hemoglobin measurementOrdere d By: Dulce Villar on 04-08-2025 Hemoglobin (Bld) [Mass/Vol] 11.6 g/dL Low 12.0-15.0 [facility] Immature granulocytes/100 WB C Auto (Bld)Ordered By: Dulce Villar on 04-08-2025 Immature granulocytes/100 WBC (Bld) 1.700 % High 0.0-0.9 [facility] Comment on above: IG% - Immature Granu locytes (promyelocytes, myelocytes and metamyelocytes) > 1% indicates that a LEFT SHIFT is Present. Laboratory - Chemistry and C hemistry - challengeOrdered By: Dulce Villar on 04-08-2025 AST [Catalytic activity/Vol] 19 U/L <32 [facility] Glucose Ql (U) Negative [facility] - UrinalysisOrder ed By: Dulce Villar on 04-08-2025 Protein Ql (U) Trace [facility] MCV (mean corpuscular volume ) determinationOrdered By: Dulce Villar on 04-08-2025 MCV (RBC) [Entitic vol] 87.2 fL 81-99 [facility] Mean corpuscular hemoglobin (MCH) determinationOrdered By: Dulce Villar on 04-08-2025 MCH (RBC) [Entitic mass] 29.1 pg 27.0-32.0 [facility] Mean corpuscular hemoglobin concentration (MCHC) determinationOrdered By: Dulce Villar on 04-08-2025 MCHC (RBC) [Mass/Vol] 33.4 g/dL 32-36 [facility] Mean platelet volume determi nationOrdered By: Dulce Villar on 04-08-2025 Platelet mean volume (Bld) [Entitic vol] 9.2 fL 6.2-12.0 [facility] Monocyte percentageOrdered B y: Dulce Villar on 04-08-2025 Monocytes/100 WBC (Bld) 7.5 % 0-10 [facility] Neutrophil percentageOrdered By: Dulce Villar on 04-08-2025 Neutrophils/100 WBC (Bld) 64.0 % 47-70 [facility] Nucleated red blood cell per centageOrdered By: Dulce Villar on 04-08-2025 Nucleated RBC/100 WBC (Bld) [Ratio] 0 % 0-5 [facility] Asset Protection Professional Office Visit Reporton 04-08-2025 Asset Protection Professional Office Visit Report [facility] [address], [address] [place] [address] OFFICE VISIT Date of Service: 04/08/25 MR#: [id number] Acct: [id number] Name: SHIRA ARBOLEDA Rep #: [id number] : 1990 Provider: Dr. Dulce sanchez MD Age/Sex: 34/F Location[place] [facility] [place]: Signed with Addenda ADDENDUM by Bertha Harvey on 04/08/25 at 1351 Office Procedure Documentation entered by Bertha Harvey 04/08/25 13:51: Immunizations Boostrix Tdap 2.5 Lf unit-8 mcg-5 Lf/0.5 mL intramuscular syringe Performing Provider: Dulce Villar MD Performing Location: [facility] [place] [facility] Administered by: Bertha Harvey on 04/08/25 13:50 Dose Route Admin Location Dispensed Lot Number Expiration Date Package NDC NDC Heat [employer] Insulator Helper 0.5 mL IM Right Deltoid 0.5 mL [id number] 03/07/27 10564-354-84 [id number] S [employer] VIS Given Date VIS Provided [...] H Intake Visit Reasons: 30 WK OB Clinical Technologist Required: No Is patient in pain?: No [...] mg-folate no.1 1 mg-dha 300 mg capsule (PNV-[place]) hydroxyzine HCl 25 mg tablet 25 mg [...] current occupational status: employed 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 Date Name GA/Weeks Outcome Route Bth Weight Infant Gen Labor Lgth Anesthesia Del Locatn Provider FOB 03/21/18 Justin 40 live - full term 9lbs 7oz Male epidural [facility] Natali Kilpatrick 06/12/19 Thakur-Goes by Tevin 40 live - full term 8lbs 8oz Male epidural [facility] Dr. Olena Kilpatrick 01/13/21 Isamar 40 live - full term 7lbs 6oz Female epidural [facility] Hafsa Kilpatrick 07/10/24 elective Delivery Date: 03/21/18 Last Updated by: Elvira Travis Prolonged labor, Oligo Delivery Date: 06/12/19 Last Updated by: Elvira Travis hypotension during labor HPI 30 WK OB Details: SHIRA ARBOLEDA is a 34 year old who presents for routine OB visit. OB Visit TIFFANY Calculator (more content not included)... Normal [facility] Platelet countOrdered By: Paolo Villar on 04-08-2025 Platelets (Bld) [#/Vol] 189 10*3/uL 150-450 [facility] Potassium measurement (mass/ volume)Ordered By: Dulce Villar on 04-08-2025 Potassium (Unsp spec) [Mass/Vol] 4.0 mmol/L 3.3-5.1 [facility] Protein+Creatinine Ratio,Uri neon 04-08-2025 PROT:CRE RATIO 96 mg/g CRE Normal 0-200 [facility] Comment on above: Performed By: #### L 501.0900 #### [facility] [address] [place], [address] Protein (U) [Mass/Vol] 11.5 mg/dL Normal 0.0-12.0 [facility] Comment on above: Performed By: #### L 501.0900 #### [facility] [address], [address] UR CREAT 120.00 mg/dL Normal 28.00-217.00 [facility] Comment on above: Performed By: #### L 501.0900 #### [facility] [address] [place], [address] RBC Auto (Bld) [#/Vol]Ordere d By: Dulce Villar on 04-08-2025 RBC (Bld) [#/Vol] 3.98 10*6/uL Low 4.2-5.4 [facility] Random urine creatinine chaitanya urement (mass/volume)Ordered By: Dulce Villar on 04-08-2025 Creatinine Unsp time (U) [Mass/Vol] 120.00 mg/dL 28.00-217.00 [facility] Serum creatinine measurement (mass/volume)Ordered By: Dulce Villar on 04-08-2025 Creatinine [Mass/Vol] 0.51 mg/dL Low 0.70-1.20 [facility] Serum globulin measurementOr dered By: Dulce Villar on 04-08-2025 Globulin (S) [Mass/Vol] 2.6 g/dL 2.2-4.2 [facility] Serum glucose measurement (m ass/volume)Ordered By: Dulce Villar on 04-08-2025 Glucose [Mass/Vol] 75 mg/dL 70-99 [facility] Serum or plasma alanine dey otransferase (ALT) measurementOrdered By: Dulce Villar on 04-08-2025 ALT [Catalytic activity/Vol] 12 U/L <35 [facility] Serum or plasma albumin chaitanya urement (mass/volume)Ordered By: Dulce Villar on 04-08-2025 Albumin [Mass/Vol] 3.6 g/dL 3.5-5.0 [facility] Serum or plasma albumin/glob ulin mass ratioOrdered By: Dulce Villar on 04-08-2025 Albumin/Globulin [Mass ratio] 1.4 {ratio} 0.9-2.4 [facility] Serum or plasma alkaline ulises sphatase measurementOrdered By: Dulce Villar on 04-08-2025 ALP [Catalytic activity/Vol] 102 U/L 35-104 [facility] Serum or plasma calcium chaitanya urement (mass/volume)Ordered By: Dulce Villar on 04-08-2025 Calcium [Mass/Vol] 8.5 mg/dL 7.6-11.0 [facility] Serum or plasma urea nitroge n measurement (mass/volume)Ordered By: Dulce Villar on 04-08-2025 Urea nitrogen [Mass/Vol] 7 mg/dL 4-19 [facility] Sodium levelOrdered By: Feng diane Olena on 04-08-2025 Sodium [Moles/Vol] 135 mmol/L 133-145 [facility] Total proteinOrdered By: Javier Villar on 04-08-2025 Protein [Mass/Vol] 6.2 g/dL 5.9-8.4 [facility] Urine protein measurement (m ass/volume)Ordered By: Dulce Villar on 04-08-2025 Protein (U) [Mass/Vol] 11.5 mg/dL 0.0-12.0 [facility] Urine protein/creatinine mas s ratioOrdered By: Ducle Villar on 04-08-2025 Protein/Creatinine (U) [Mass ratio] 96 mg/g CRE 0-200 [facility] White blood cell (WBC) count Ordered By: Dulce Villar on 04-08-2025 WBC (Bld) [#/Vol] 8.4 10*3/uL 4.4-11.0 [facility] 12 Lead EKGon 04-05-2025 12 Lead EKG [facility] [address] [place] [address] 12 Lead EKG 04/05/25 1212 MR#: [id number] Acct: [id number] Name: SHIRA ARBOLEDA Rep #: [id number] : 1990 34 From: Anthony Jensen MD [...] Abnormal ECG Confirmed by EZEQUIEL CHAUHAN, ANTHONY ([id number]), assignment editor DENISE ONEILL ([id number]) on 04/06/2025 8:03:54 AM Referred By: Confirmed By: ANTHONY JENSEN MD 04/06/25 08 Date Anthony Jensen MD CC: Dr. Braulio Bosch MD; Dr. Alejandro Gonzalez MD Signed Normal [facility] AST(SGOT)Ordered By: Mary koroma on 04-05-2025 AST [Catalytic activity/Vol] 20 U/L Normal <=31 [facility] Comment on above: Performed By: #### L 501.0900, L501.4405, L501.4100, L501.1400, L100.0500, L501.1105 #### [facility] [address] [place], [place], [address] Absolute lymphocyte countOrd ered By: Alejandro Gonzalez on 04-05-2025 Lymphocytes Auto (Unsp spec) [#/Vol] 1.88 10*3/uL 0.83-4.51 [facility] Absolute neutrophil countOrd ered By: Alejandro Gonzalez on 04-05-2025 Neutrophils (Bld) [#/Vol] 5.6 10*3/uL 2.0-7.7 [facility] Anion gap in Serum or Plasma Ordered By: Alejandro Gonzalez on 04-05-2025 Anion gap [Moles/Vol] 12 mmol/L 5-15 [facility] Automated blood erythrocyte countOrdered By: Mary Madrigal on 04-05-2025 RBC (Bld) [#/Vol] 3.94 10*6/uL Low 4.2-5.4 [facility] Comment on above: Performed By: #### L 501.0900, L501.4405, L501.4100, L501.1400, L100.0500, L501.1105 #### [facility] [address] [place], [address] Automated blood hematocrit ( percentage)Ordered By: Mary Madrigal on 04-05-2025 Hematocrit (Bld) [Volume fraction] 35.0 % Low 37-47 [facility] Comment on above: Performed By: #### L 501.0900, L501.4405, L501.4100, L501.1400, L100.0500, L501.1105 #### [facility] [address] [place], [address] Automated lymphocyte count a s percentage of total leukocytesOrdered By: Alejandro Gonzalez on 04-05-2025 Lymphocytes/100 WBC Auto (Unsp spec) 22.7 % [facility] BUN/creatinine ratioOrdered By: Alejandro Gonzalez on 04-05-2025 Urea nitrogen/Creatinine [Mass ratio] 15.8 mg/mg 04-26 [facility] Basic Metabolic Profile (BMP )on 04-05-2025 BUN/CRE 15.8 RATIO Normal 04-26 [facility] Comment on above: Performed By: #### L 100.0100, L501.4021, L500.2500 #### [facility] [address] [place], [address] Calcium [Mass/Vol] 8.3 mg/dL Normal 7.6-11.0 [facility] Comment on above: Performed By: #### L 100.0100, L501.4021, L500.2500 #### [facility] [address] [place], [address] Chloride [Moles/Vol] 103 mmol/L Normal 98-108 [facility] Comment on above: Performed By: #### L 100.0100, L501.4021, L500.2500 #### [facility] [address] [place], [address] CO2 [Moles/Vol] 20.6 mmol/L Low 21.0-32.0 [facility] Comment on above: Performed By: #### L 100.0100, L501.4021, L500.2500 #### [facility] [address] [place], [address] Creatinine [Mass/Vol] 0.50 mg/dL Low 0.70-1.20 [facility] Comment on above: Performed By: #### L 100.0100, L501.4021, L500.2500 #### [facility] [address] [place] [place], [address] ECRCL 190.00 ml/min Normal 50-250 [facility] Comment on above: Performed By: #### L 100.0100, L501.4021, L500.2500 #### [facility] [address] [place], [address] GAP 12 Normal 5-15 [facility] Comment on above: Performed By: #### L 100.0100, L501.4021, L500.2500 #### [facility] [address] [place], [address] GFR/1.73 sq M.predicted among non-blacks MDRD (S/P/Bld) [Vol rate/Area] 127 mL/min/{1.73_m2} Normal >60 [facility] Comment on above: Result Comment: mL/m in/1.73m2 CKD-EPI Creatinine Equation (2020) Performed By: #### L 100.0100, L501.4021, L500.2500 #### [facility] [address] [place] [place], [address] Glucose [Mass/Vol] 84 mg/dL Normal 70-99 [facility] Comment on above: Performed By: #### L 100.0100, L501.4021, L500.2500 #### [facility] [address] [place], [address] Potassium [Moles/Vol] 4.1 mmol/L Normal 3.3-5.1 [facility] Comment on above: Result Comment: Hemo lysis present, Results??could be affected. ?? Performed By: #### L 100.0100, L501.4021, L500.2500 #### [facility] [address] [place], [address] Sodium [Moles/Vol] 135 mmol/L Normal 133-145 [facility] Comment on above: Performed By: #### L 100.0100, L501.4021, L500.2500 #### [facility] [address] [place], [address] Urea nitrogen [Mass/Vol] 8 mg/dL Normal 4-19 [facility] [facility] Comment on above: Performed By: #### L 100.0100, L501.4021, L500.2500 #### [facility] [address] [place], [address] Basophil percentageOrdered B y: Alejandro Gonzalez on 04-05-2025 Basophils/100 WBC (Bld) 0.6 % 0-1 [facility] CBC W/Diff, Automatedon 03-09 Absolute Lymph 1.88 X10 3/uL Normal 0.83-4.51 [facility] Comment on above: Performed By: #### L 100.0100, L501.4021, L500.2500 #### [facility] [address] [place], [address] Absolute Neut 5.6 X10 3/uL Normal 2.0-7.7 [facility] Comment on above: Performed By: #### L 100.0100, L501.4021, L500.2500 #### [facility] [address] [place], [address] Basophils/100 WBC (Bld) 0.6 % Normal 0-1 [facility] Comment on above: Performed By: #### L 100.0100, L501.4021, L500.2500 #### [facility] [address] [place], [address] Eosinophils/100 WBC (Bld) 0.8 % Normal 0-5 [facility] Comment on above: Performed By: #### L 100.0100, L501.4021, L500.2500 #### [facility] [address] [place], [address] Erythrocyte distribution width (RBC) [Ratio] 12.6 % Normal 11.6-14.6 [facility] Comment on above: Performed By: #### L 100.0100, L501.4021, L500.2500 #### [facility] [address] [place], [address] Hematocrit (Bld) [Volume fraction] 32.3 % Low 37-47 [facility] Comment on above: Performed By: #### L 100.0100, L501.4021, L500.2500 #### [facility] [address] [place], [address] Hemoglobin (Bld) [Mass/Vol] 11.0 g/dL Low 12.0-15.0 [facility] Comment on above: Performed By: #### L 100.0100, L501.4021, L500.2500 #### [facility] [address] [place], [address] IG% 2.500 High 0.0-0.9 [facility] Comment on above: Result Comment: IG% - Immature Granulocytes (promyelocytes, myelocytes and metamyelocytes) > 1% indicates that a LEFT SHIFT is Present. Performed By: #### L 100.0100, L501.4021, L500.2500 #### [facility] [address] [place], [address] Lymphocytes/100 WBC (Bld) 22.7 % Normal 19-41 [facility] Comment on above: Performed By: #### L 100.0100, L501.4021, L500.2500 #### [facility] [address] [place], [address] MCH (RBC) [Entitic mass] 30.0 pg Normal 27.0-32.0 [facility] Comment on above: Performed By: #### L 100.0100, L501.4021, L500.2500 #### [facility] [address] [place], [address] MCHC (RBC) [Mass/Vol] 34.1 g/dL Normal 32-36 [facility] Comment on above: Performed By: #### L 100.0100, L501.4021, L500.2500 #### [facility] [address] [place], [address] MCV (RBC) [Entitic vol] 88.0 fL Normal 81-99 [facility] Comment on above: Performed By: #### L 100.0100, L501.4021, L500.2500 #### [facility] [address] [place], [address] Monocytes/100 WBC (Bld) 6.3 % Normal 0-10 [facility] Comment on above: Performed By: #### L 100.0100, L501.4021, L500.2500 #### [facility] [address] [place], [address] Neutrophils/100 WBC (Bld) 67.1 % Normal 47-70 [facility] Comment on above: Performed By: #### L 100.0100, L501.4021, L500.2500 #### [facility] [address] [place], [address] Nucleated RBC (Bld) [#/Vol] 0 10*3/uL Normal 0-5 [facility] Comment on above: Performed By: #### L 100.0100, L501.4021, L500.2500 #### [facility] [address] [place], [address] Platelet mean volume (Bld) [Entitic vol] 9.2 fL Normal 6.2-12.0 [facility] Comment on above: Performed By: #### L 100.0100, L501.4021, L500.2500 #### [facility] [address] [place], [address] Platelets (Bld) [#/Vol] 160 10*3/uL Normal 150-450 [facility] Comment on above: Performed By: #### L 100.0100, L501.4021, L500.2500 #### [facility] [address] [place], [address] RBC (Bld) [#/Vol] 3.67 10*6/uL Low 4.2-5.4 [facility] Comment on above: Performed By: #### L 100.0100, L501.4021, L500.2500 #### [facility] [address] [place], [address] RDW SD 40.2 fl Normal 35.1-43.9 [facility] Comment on above: Performed By: #### L 100.0100, L501.4021, L500.2500 #### [facility] [address] [place], [address] WBC (Bld) [#/Vol] 8.3 10*3/uL Normal 4.4-11.0 [facility] Comment on above: Performed By: #### L 100.0100, L501.4021, L500.2500 #### [facility] [address] [place], [address] CBC-Complete Blood Cnt No Di ffon 04-05-2025 RDW SD 40.8 fl Normal 35.1-43.9 [facility] Comment on above: Performed By: #### L 501.0900, L501.4405, L501.4100, L501.1400, L100.0500, L501.1105 #### [facility] [address] [place], [address] CTA Chest W/WO Contraston CTA Chest W/WO Contrast [facility] Imaging Services [address] [place] [address] CTA Chest W/WO Contrast MR#: [id number] Acct: [id number] Name: SHIRA ARBOLEDA Rep #: [id number] : 1990 F 34 From: Katarina Purvis MD PCP: Dr. Braulio Bosch MD Status: REG ER Study: CTA Chest W/WO Contrast Date of Exam: 04/05/25 Exam# [id number] Ordering Dr: Alejandro Gonzalez MD PROCEDURE: CTA [...] or outflow track. Unremarkable exam. Reading Location: [place] [address] CC: Dr. Braulio Bosch MD; Dr. Alejandro Gonzalez MD Hearing Instrument Specialist: Signed Normal [facility] Carbon dioxide, total [Moles /volume] in Central venous bloodOrdered By: Alejandro Gonzlaez on 04-05-2025 CO2 [Moles/Vol] 20.6 mmol/L Low 21.0-32.0 [facility] Chest PA and Lateralon 04-05 Chest PA and Lateral [facility] Imaging Services [address] [place], [place] [address] Chest PA and Lateral MR#: [id number] Acct: [id number] Name: SHIRA ARBOLEDA Rep #: [id number] : 1990 F 34 From: Katarina Purvis MD PCP: Dr. Braulio Bosch MD Status: REG ER Study: Chest PA and Lateral Date of Exam: 04/05/25 Exam# [id number] Ordering Dr: Alejandro Gonzalez MD PROCEDURE: CHEST PA AND LATERAL 04/05/2025 REASON FOR EXAM: CHEST PAIN TECHNIQUE: Procedure Code: RADCXR Modality: DX Procedure: CHEST PA AND LATERAL COMPARISON: 07/03/2022 FINDINGS: Cardiomediastinal silhouette pulmonary vasculature and bony thorax are within normal limits. No focal infiltrates or effusion. RAD/Chest PA and Lateral IMPRESSION: No radiographic evidence of acute cardiopulmonary disease. Reading Location: [place] [address] CC: Dr. Braulio Bosch MD; Dr. Alejandro Gonzalez MD Hearing Instrument Specialist: Signed Normal [facility] Chloride assayOrdered By: Deion Gonzalez on 04-05-2025 Chloride [Moles/Vol] 103 mmol/L 98-108 [facility] D-Dimer Quantitative (DVT/PE )on 04-05-2025 D-DIMER QUANT 0.66 FEU/ug/m Invalid Interpretation Code 0.27-0.49 [facility] Comment on above: Result Comment: D-Di otf ELEVATED (>0.49): Additional studies and clinical assessments are indicated to conclude diagnosis of: Deep Vein Thrombosis (DVT) or Pulmonary Embolism (PE) CRITICAL VALUE CALLED TO MARQUEZ 04/05/25 India Orozco. RESULTS READ BACK BY SAME. Performed By: #### L 300.8000 #### [facility] [address] [place], [address] Electrocardiogram reportOrde red By: Anthony Jensen on 04-05-2025 EKG study [facility] Cardiovascular Services [address] [place] [address] 12 Lead EKG 04/05/25 1212 MR#: [id number] Acct: [id number] Name: SHIRA ARBOLEDA Rep #:[id number] : 1990 34 From: Anthony Jensen MD [...] Abnormal ECG Confirmed by ANTHONY JENSEN MD ([id number]), assignment editor DENISE ONEILL ([id number]) on 58:03:54 AM Referred By: Confirmed By: ANTHONY JENSEN MD 04/06/25 0803 Date _ Anthony Jensen MD CC: Dr. Braulio Bosch MD; Dr. 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 Constitutional [...] regular rhythm (more content not included)... Normal [facility] Eosinophil percentageOrdered By: Alejandro Gonzalez on 04-05-2025 Eosinophils/100 WBC (Bld) 0.8 % 0-5 [facility] Erythrocyte distribution wid th ratioOrdered By: Alejandro Gonzalez on 04-05-2025 Erythrocyte distribution width (RBC) [Ratio] 12.6 % 11.6-14.6 [facility] Erythrocyte distribution wid th ratioOrdered By: Mary Madrigal on 04-05-2025 Erythrocyte distribution width (RBC) [Ratio] 12.5 % Normal 11.6-14.6 [facility] Comment on above: Performed By: #### L 501.0900, L501.4405, L501.4100, L501.1400, L100.0500, L501.1105 #### [facility] [address] [place], [address] Erythrocyte distribution wid th standard deviationOrdered By: Alejandro Gonzalez on 04-05-2025 Erythrocyte distribution width (RBC) [Ratio] 40.2 fl 35.1-43.9 [facility] Erythrocyte distribution wid th standard deviationOrdered By: Mary Madrigal on 04-05-2025 Erythrocyte distribution width (RBC) [Ratio] 40.8 fl 35.1-43.9 [facility] Glomerular filtration rate ( GFR) estimation/1.73 sq m using serum, plasma, or whole bOrdered By: Alejandro Gonzalez on 04-05-2025 GFR/1.73 sq M.predicted among non-blacks MDRD (S/P/Bld) [Vol rate/Area] 127 mL/min/{1.73_m2} >60 [facility] Comment on above: mL/min/1.73m2 CKD-EP I Creatinine Equation (2020) Glomerular filtration rate ( GFR) estimation/1.73 sq m using serum, plasma, or whole bOrdered By: Mary Madrigal on 04-05-2025 GFR/1.73 sq M.predicted among non-blacks MDRD (S/P/Bld) [Vol rate/Area] 124 mL/min/{1.73_m2} Normal >60 [facility] Comment on above: mL/min/1.73m2 CKD-EP I Creatinine Equation (2020) Result Comment: mL/m in/1.73m2 CKD-EPI Creatinine Equation (2020) Performed By: #### L 501.0900, L501.4405, L501.4100, L501.1400, L100.0500, L501.1105 #### [facility] [address] [place], [address] Hematocrit Auto (Bld) [Volum e fraction]Ordered By: Alejandro Gonzalez on 04-05-2025 Hematocrit (Bld) [Volume fraction] 32.3 % Low 37-47 [facility] Hemoglobin measurementOrdere d By: Alejandro Gonzalez on 04-05-2025 Hemoglobin (Bld) [Mass/Vol] 11.0 g/dL Low 12.0-15.0 [facility] Hemoglobin measurementOrdere d By: Mary Madrigal on 04-05-2025 Hemoglobin (Bld) [Mass/Vol] 11.5 g/dL Low 12.0-15.0 [facility] Comment on above: Performed By: #### L 501.0900, L501.4405, L501.4100, L501.1400, L100.0500, L501.1105 #### [facility] [address] [place], [address] Immature granulocytes/100 WB C Auto (Bld)Ordered By: Alejandro Gonzalez on 04-05-2025 Immature granulocytes/100 WBC (Bld) 2.500 % High 0.0-0.9 [facility] Comment on above: IG% - Immature Granu locytes (promyelocytes, myelocytes and metamyelocytes) > 1% indicates that a LEFT SHIFT is Present. L501.4021on 04-05-2025 Trop T High Sen < 6 Normal <=14 [facility] Comment on above: Performed By: #### L 501.0900, L501.4405, L501.4100, L501.1400, L100.0500, L501.1105 #### [facility] [address] [place], [address] MCV (mean corpuscular volume ) determinationOrdered By: Alejandro Gonzalez on 04-05-2025 MCV (RBC) [Entitic vol] 88.0 fL 81-99 [facility] MCV (mean corpuscular volume ) determinationOrdered By: Mary Madrigal on 04-05-2025 MCV (RBC) [Entitic vol] 88.8 fL Normal 81-99 [facility] Comment on above: Performed By: #### L 501.0900, L501.4405, L501.4100, L501.1400, L100.0500, L501.1105 #### [facility] [address], [address] Mean corpuscular hemoglobin (MCH) determinationOrdered By: Alejandro Gonzalez on 04-05-2025 MCH (RBC) [Entitic mass] 30.0 pg 27.0-32.0 [facility] Mean corpuscular hemoglobin (MCH) determinationOrdered By: Mary Madrigal on 04-05-2025 MCH (RBC) [Entitic mass] 29.2 pg Normal 27.0-32.0 [facility] Comment on above: Performed By: #### L 501.0900, L501.4405, L501.4100, L501.1400, L100.0500, L501.1105 #### [facility] [address] [place], [address] Mean corpuscular hemoglobin concentration (MCHC) determinationOrdered By: Alejandro Gonzalez on 04-05-2025 MCHC (RBC) [Mass/Vol] 34.1 g/dL 32-36 [facility] Mean corpuscular hemoglobin concentration (MCHC) determinationOrdered By: Mary Madrigal on 04-05-2025 MCHC (RBC) [Mass/Vol] 32.9 g/dL Normal 32-36 [facility] Comment on above: Performed By: #### L 501.0900, L501.4405, L501.4100, L501.1400, L100.0500, L501.1105 #### [facility] [address] [place], [place], [address] Mean platelet volume determi nationOrdered By: Alejandro Gonzalez on 04-05-2025 Platelet mean volume (Bld) [Entitic vol] 9.2 fL 6.2-12.0 [facility] Mean platelet volume determi nationOrdered By: Mary Madrigal on 04-05-2025 Platelet mean volume (Bld) [Entitic vol] 8.8 fL Normal 6.2-12.0 [facility] Comment on above: Performed By: #### L 501.0900, L501.4405, L501.4100, L501.1400, L100.0500, L501.1105 #### [facility] [address] [facility] [place], [address] Monocyte percentageOrdered B y: Alejandro Gonzalez on 04-05-2025 Monocytes/100 WBC (Bld) 6.3 % 0-10 [facility] Neutrophil percentageOrdered By: Alejandro Gonzalez on 04-05-2025 Neutrophils/100 WBC (Bld) 67.1 % 47-70 [facility] Nucleated red blood cell per centageOrdered By: Alejandro Gonzalez on 04-05-2025 Nucleated RBC/100 WBC (Bld) [Ratio] 0 % 0-5 [facility] OB Triage Progress Noteon OB Triage Progress Note [facility] Medical Records Department [address] [place] [address] OB Triage Progress Note 04/05/25 1046 MR#: [id number] Acct: [id number] Name: SHIRA ARBOLEDA Rep #: [id number] : 1990 34 From: Mary Madrigal CNM PCP: Dr. Braulio Bosch MD Status:DEP CLI Y DOS: Location: OUT Progress Notes Progress Note: Patient presents for triage evaluation secondary to shortness of breath and blurred vision. FHT: 135 Moderate variability reactive no decelerations category I tracing [place]: irregular mild Contractions Assessment and plan: pre e labs and normal BP, Reactive NST, reassuring maternal and status patient to ER for evaluation of shortness of breath. See problem list details for additional plan information. Charges/Coding Multi Select Codes Urinary/Genital Urinary/Genital CPT Codes: 47467-94 non-stress test Interp Assessment Plan (1) Blurred [...] , TIFFANY 06/14/25, girl [facility] Justin, Bybee, Isamar, Partner Chintan (6) History of marijuana use: COMMENT: Gummies last used 05/31, discussed random tox screens during (7) Hx of depression, currently : (8) FH: cleft lip and palate: COMMENT: Brother 04/05/25 1411 Date Mary Madrigal CNM Cosigner Signature (if applicable): Date CC: SMITA Madrigal; Dr. Braulio Bosch MD Signed Normal [facility] Platelet countOrdered By: Deion Gonzalez on 04-05-2025 Platelets (Bld) [#/Vol] 160 10*3/uL 150-450 [facility] Platelet countOrdered By: Vishnu Madrigal on 04-05-2025 Platelets (Bld) [#/Vol] 166 10*3/uL Normal 150-450 [facility] Comment on above: Performed By: #### L 501.0900, L501.4405, L501.4100, L501.1400, L100.0500, L501.1105 #### [facility] [address] [place], [place] [address], [address] Potassium measurement (mass/ volume)Ordered By: Alejandro Gonzalez on 04-05-2025 Potassium (Unsp spec) [Mass/Vol] 4.1 mmol/L 3.3-5.1 [facility] Comment on above: Hemolysis present, R esults could be affected. Protein+Creatinine Ratio,Uri neon 04-05-2025 PROT:CRE RATIO 242 mg/g CRE High 0-200 [facility] Comment on above: Performed By: #### L 501.0900, L501.4405, L501.4100, L501.1400, L100.0500, L501.1105 #### [facility] [address] [place], [address] UR CREAT 38.60 mg/dL Normal 28.00-217.00 [facility] Comment on above: Performed By: #### L 501.0900, L501.4405, L501.4100, L501.1400, L100.0500, L501.1105 #### [facility] [address] [place], [address] RBC Auto (Bld) [#/Vol]Ordere d By: Alejandro Gonzalez on 04-05-2025 RBC (Bld) [#/Vol] 3.67 10*6/uL Low 4.2-5.4 [facility] Random urine creatinine chaitanya urement (mass/volume)Ordered By: Mary Madrigal on 04-05-2025 Creatinine Unsp time (U) [Mass/Vol] 38.60 mg/dL 28.00-217.00 [facility] Serum Creatinine AND GFRon 0 04-05-2025 ECRCL 172.72 ml/min Normal 50-250 [facility] Comment on above: Performed By: #### L 501.0900, L501.4405, L501.4100, L501.1400, L100.0500, L501.1105 #### [facility] [address] [place], [address] Serum creatinine measurement (mass/volume)Ordered By: Alejandro Gonzalez on 04-05-2025 Creatinine [Mass/Vol] 0.50 mg/dL Low 0.70-1.20 [facility] Serum creatinine measurement (mass/volume)Ordered By: Mary Madrigal on 04-05-2025 Creatinine [Mass/Vol] 0.55 mg/dL Low 0.70-1.20 [facility] Comment on above: Performed By: #### L 501.0900, L501.4405, L501.4100, L501.1400, L100.0500, L501.1105 #### [facility] [address] [place], [place], [address] Serum glucose measurement (m ass/volume)Ordered By: Alejandro Gonzalez on 04-05-2025 Glucose [Mass/Vol] 84 mg/dL 70-99 [facility] Serum or plasma alanine dey otransferase (ALT) measurementOrdered By: Mary Madrigal on 04-05-2025 ALT [Catalytic activity/Vol] 13 U/L Normal <=34 [facility] Comment on above: Performed By: #### L 501.0900, L501.4405, L501.4100, L501.1400, L100.0500, L501.1105 #### [facility] [address] [facility] [place], [place], [address] Serum or plasma calcium chaitanya urement (mass/volume)Ordered By: Alejandro Gonzalez on 04-05-2025 Calcium [Mass/Vol] 8.3 mg/dL 7.6-11.0 [facility] Serum or plasma urea nitroge n measurement (mass/volume)Ordered By: Alejandro Gonzalez on 04-05-2025 Urea nitrogen [Mass/Vol] 8 mg/dL 4-19 [facility] Serum or plasma uric acid me asurement (mass/volume)Ordered By: Mary Madrigal on 04-05-2025 Urate [Mass/Vol] 4.5 mg/dL 2.6-6.0 [facility] Comment on above: The drugs N-Acetylcy steine and Metamizole may falsely depress this assay. Sodium levelOrdered By: Alejandro Gonzalez on 04-05-2025 Sodium [Moles/Vol] 135 mmol/L 133-145 [facility] Troponin T HS 2 HRon 025 Trop T High Sen < 6 Normal <=14 [facility] Comment on above: Performed By: #### L 501.0900, L501.4405, L501.4100, L501.1400, L100.0500, L501.1105 #### [facility] [address] [place], [address] Troponin T HS 4 HRon 025 Trop T High Sen Normal <=14 [facility] Comment on above: Result Comment: [place] howell via OM: Ordered Performed By: #### L 501.0900, L501.4405, L501.4100, L501.1400, L100.0500, L501.1105 #### [facility] [address] [place], [address] Troponin T.cardiac [Mass/vol ume] in Serum or Plasma by High sensitivity methodOrdered By: Alejandro Gonzalez on 04-05-2025 Troponin T.cardiac High sensitivity method [Mass/Vol] < 6 ng/L <14 [facility] Troponin T.cardiac High sensitivity method [Mass/Vol] < 6 ng/L <14 [facility] Uric Acidon 04-05-2025 URIC 4.5 mg/dL Normal 2.6-6.0 [facility] Comment on above: Result Comment: The drugs N-Acetylcysteine and Metamizole may falsely depress this assay. Performed By: #### L 501.0900, L501.4405, L501.4100, L501.1400, L100.0500, L501.1105 #### [facility] [address] [place], [address] Urine protein measurement (m ass/volume)Ordered By: Mary Madrigal on 04-05-2025 Protein (U) [Mass/Vol] 9.3 mg/dL Normal 0.0-12.0 [facility] Comment on above: Performed By: #### L 501.0900, L501.4405, L501.4100, L501.1400, L100.0500, L501.1105 #### [facility] [address] [place], [place], [address] Urine protein/creatinine mas s ratioOrdered By: Mary Madrigal on 04-05-2025 Protein/Creatinine (U) [Mass ratio] 242 mg/g CRE High 0-200 [facility] White blood cell (WBC) count Ordered By: Alejandro Gonzalez on 04-05-2025 WBC (Bld) [#/Vol] 8.3 10*3/uL 4.4-11.0 [facility] White blood cell (WBC) count Ordered By: Mary Madrigal on 04-05-2025 WBC (Bld) [#/Vol] 8.4 10*3/uL Normal 4.4-11.0 [facility] Comment on above: Performed By: #### L 501.0900, L501.4405, L501.4100, L501.1400, L100.0500, L501.1105 #### [facility] [address] [place], [address] Gestational GTT 3HR 100gon 0 03-26-2025 GEST GTT 100gm Normal [facility] Comment on above: Order Comment: Y Result [...] 501.0900, L501.4405, L501.4100, L501.1400, L100.0500, L501.1105 #### [facility] [address] [place], [place], [address] Quantitative serum or plasma 3 hour gestational glucose tolerance panelOrdered By: Bertha May on 03-26-2025 Glucose tolerance 3 hours gestational panel See comment [facility] Comment on above: FASTING 82 Col: 03/08 [...] Auto (Unsp spec) [#/Vol] 1.71 10*3/uL 0.83-4.51 [facility] Absolute neutrophil countOrd ered By: Dulce Rohithketan on 03-23-2025 Neutrophils (Bld) [#/Vol] 4.6 10*3/uL 2.0-7.7 [facility] Automated lymphocyte count a s percentage of total leukocytesOrdered By: Dulce Villar on 03-23-2025 Lymphocytes/100 WBC Auto (Unsp spec) 24.5 % 19-41 [facility] Basophil percentageOrdered B y: Dulce Villar on 03-23-2025 Basophils/100 WBC (Bld) 0.6 % 0-1 [facility] CBC W/Diff, Automatedon 03-08 Absolute Lymph 1.71 X10 3/uL Normal 0.83-4.51 [facility] Comment on above: Performed By: #### L 501.0900, L501.4405, L501.4100, L501.1400, L100.0500, L501.1105 #### [facility] [address] [place], [address] Absolute Neut 4.6 X10 3/uL Normal 2.0-7.7 [facility] Comment on above: Performed By: #### L 501.0900, L501.4405, L501.4100, L501.1400, L100.0500, L501.1105 #### [facility] [address] [place], [address] Basophils/100 WBC (Bld) 0.6 % Normal 0-1 [facility] Comment on above: Performed By: #### L 501.0900, L501.4405, L501.4100, L501.1400, L100.0500, L501.1105 #### [facility] [address] [place], [address] Eosinophils/100 WBC (Bld) 1.1 % Normal 0-5 [facility] Comment on above: Performed By: #### L 501.0900, L501.4405, L501.4100, L501.1400, L100.0500, L501.1105 #### [facility] [address] [place], [address] Erythrocyte distribution width (RBC) [Ratio] 12.5 % Normal 11.6-14.6 [facility] Comment on above: Performed By: #### L 501.0900, L501.4405, L501.4100, L501.1400, L100.0500, L501.1105 #### [facility] [address] [place], [address] Hematocrit (Bld) [Volume fraction] 33.7 % Low 37-47 [facility] Comment on above: Performed By: #### L 501.0900, L501.4405, L501.4100, L501.1400, L100.0500, L501.1105 #### [facility] [address] [place], [address] Hemoglobin (Bld) [Mass/Vol] 11.3 g/dL Low 12.0-15.0 [facility] Comment on above: Performed By: #### L 501.0900, L501.4405, L501.4100, L501.1400, L100.0500, L501.1105 #### [facility] [address] [place], [address] IG% 1.700 High 0.0-0.9 [facility] Comment on above: Result Comment: IG% - Immature Granulocytes (promyelocytes, myelocytes and metamyelocytes) > 1% indicates that a LEFT SHIFT is Present. Performed By: #### L 501.0900, L501.4405, L501.4100, L501.1400, L100.0500, L501.1105 #### [facility] [address] [place], [address] Lymphocytes/100 WBC (Bld) 24.5 % Normal 19-41 [facility] Comment on above: Performed By: #### L 501.0900, L501.4405, L501.4100, L501.1400, L100.0500, L501.1105 #### [facility] [address] [place], [address] MCH (RBC) [Entitic mass] 29.4 pg Normal 27.0-32.0 [facility] Comment on above: Performed By: #### L 501.0900, L501.4405, L501.4100, L501.1400, L100.0500, L501.1105 #### [facility] [address] [place], [address] MCHC (RBC) [Mass/Vol] 33.5 g/dL Normal 32-36 [facility] Comment on above: Performed By: #### L 501.0900, L501.4405, L501.4100, L501.1400, L100.0500, L501.1105 #### [facility] [address] [place], [address] MCV (RBC) [Entitic vol] 87.5 fL Normal 81-99 [facility] Comment on above: Performed By: #### L 501.0900, L501.4405, L501.4100, L501.1400, L100.0500, L501.1105 #### [facility] [address] [place], [address] Monocytes/100 WBC (Bld) 6.2 % Normal 0-10 [facility] Comment on above: Performed By: #### L 501.0900, L501.4405, L501.4100, L501.1400, L100.0500, L501.1105 #### [facility] [address] [place], [address] Neutrophils/100 WBC (Bld) 65.9 % Normal 47-70 [facility] Comment on above: Performed By: #### L 501.0900, L501.4405, L501.4100, L501.1400, L100.0500, L501.1105 #### [facility] [address] [place], [address] Nucleated RBC (Bld) [#/Vol] 0 10*3/uL Normal 0-5 [facility] Comment on above: Performed By: #### L 501.0900, L501.4405, L501.4100, L501.1400, L100.0500, L501.1105 #### [facility] [address] [place], [address] Platelet mean volume (Bld) [Entitic vol] 9.5 fL Normal 6.2-12.0 [facility] Comment on above: Performed By: #### L 501.0900, L501.4405, L501.4100, L501.1400, L100.0500, L501.1105 #### [facility] [address] [place], [address] Platelets (Bld) [#/Vol] 179 10*3/uL Normal 150-450 [facility] Comment on above: Performed By: #### L 501.0900, L501.4405, L501.4100, L501.1400, L100.0500, L501.1105 #### [facility] [address] [place], [address] RBC (Bld) [#/Vol] 3.85 10*6/uL Low 4.2-5.4 [facility] Comment on above: Performed By: #### L 501.0900, L501.4405, L501.4100, L501.1400, L100.0500, L501.1105 #### [facility] [address] [place], [address] RDW SD 39.6 fl Normal 35.1-43.9 [facility] Comment on above: Performed By: #### L 501.0900, L501.4405, L501.4100, L501.1400, L100.0500, L501.1105 #### [facility] [address] [place], [address] WBC (Bld) [#/Vol] 7.0 10*3/uL Normal 4.4-11.0 [facility] Comment on above: Performed By: #### L 501.0900, L501.4405, L501.4100, L501.1400, L100.0500, L501.1105 #### [facility] [address] [place], [place], [id number] Eosinophil percentageOrdered By: Dulce Villar on 03-23-2025 Eosinophils/100 WBC (Bld) 1.1 % 0-5 [facility] Erythrocyte distribution wid th ratioOrdered By: Dulce Villar on 03-23-2025 Erythrocyte distribution width (RBC) [Ratio] 12.5 % 11.6-14.6 [facility] Erythrocyte distribution wid th standard deviationOrdered By: Dulce Villar on 03-23-2025 Erythrocyte distribution width (RBC) [Ratio] 39.6 fl 35.1-43.9 [facility] Glucose Challenge Gest 1H 50 brenda 03-23-2025 GLU GEST 50g 1H 141 mg/dL High 70-140 [facility] Comment on above: Performed By: #### L 501.0900, L501.4405, L501.4100, L501.1400, L100.0500, L501.1105 #### [facility] [address] [place], [place], [address] Glucose measurement at 2 samantha rs post-dose gestational glucose tolerance testOrdered By: Dulce Villar on 03-23-2025 Glucose [Mass/Vol] 141 mg/dL High 70-140 [facility] HIVon 03-23-2025 HIV Non-Reactive Normal Nonreactive [facility] Comment on above: Result Comment: Non- Reactive Reactive Repeatedly reactive samples must be confirmed according to CDC recommended confirmatory algorithms. The subresults for either HIVAG or AHIV can be used as an aid in the selection of the confirmation algorithm for reactive samples. Send out specimens with Reactive results to [facility] for confirmation. Order the HIV antibody detection and differentiation: lc#[id number] Performed By: #### L 501.0900, L501.4405, L501.4100, L501.1400, L100.0500, L501.1105 #### [facility] [address] [place], [address] Hematocrit Auto (Bld) [Volum e fraction]Ordered By: Dulce Villar on 03-23-2025 Hematocrit (Bld) [Volume fraction] 33.7 % Low 37-47 [facility] Hemoglobin measurementOrdere d By: Dulce Villar on 03-23-2025 Hemoglobin (Bld) [Mass/Vol] 11.3 g/dL Low 12.0-15.0 [facility] Immature granulocytes/100 WB C Auto (Bld)Ordered By: Dulce Villar on 03-23-2025 Immature granulocytes/100 WBC (Bld) 1.700 % High 0.0-0.9 [facility] Comment on above: IG% - Immature Granu locytes (promyelocytes, myelocytes and metamyelocytes) > 1% indicates that a LEFT SHIFT is Present. Laboratory - Chemistry and C hemistry - challengeOrdered By: Bertha May on 03-23-2025 Glucose Ql (U) Negative [facility] - UrinalysisOrder ed By: Bertha May on 03-23-2025 Protein Ql (U) Negative [facility] MCV (mean corpuscular volume ) determinationOrdered By: Dulce Villar on 03-23-2025 MCV (RBC) [Entitic vol] 87.5 fL 81-99 [facility] Mean corpuscular hemoglobin (MCH) determinationOrdered By: Dulce Villar on 03-23-2025 MCH (RBC) [Entitic mass] 29.4 pg 27.0-32.0 [facility] Mean corpuscular hemoglobin concentration (MCHC) determinationOrdered By: Dulce Villar on 03-23-2025 MCHC (RBC) [Mass/Vol] 33.5 g/dL 32-36 [facility] Mean platelet volume determi nationOrdered By: Dulce Villar on 03-23-2025 Platelet mean volume (Bld) [Entitic vol] 9.5 fL 6.2-12.0 [facility] Monocyte percentageOrdered B y: Dulce Villar on 03-23-2025 Monocytes/100 WBC (Bld) 6.2 % 0-10 [facility] Neutrophil percentageOrdered By: Dulce Villar on 03-23-2025 Neutrophils/100 WBC (Bld) 65.9 % 47-70 [facility] No Panel InformationOrdered By: Dulce Villar on 03-23-2025 HIV (1&2) Antibody Non-Reactive Nonreactive [facility] Comment on above: Non-ReactiveReactive Repeatedly reactive samples must be confirmed according to CDC recommended confirmatory algorithms. The subresults for either HIVAG or AHIV can be used as an aid in the selection of the confirmation algorithm for reactive samples.Send out specimens with Reactive results to [facility] for confirmation.Order the HIV antibody detection and differentiation: #[id number] Nucleated red blood cell per centageOrdered By: Dulce Villar on 03-23-2025 Nucleated RBC/100 WBC (Bld) [Ratio] 0 % 0-5 [facility] Asset Protection Professional Office Visit Reporton 03-23-2025 Asset Protection Professional Office Visit Report [address], [address] [place] [address] OFFICE VISIT Date of Service: 03/23/25 MR#: [id number] Acct: [id number] Name: SHIRA ARBOLEDA Rep #: [id number] : 1990 Provider: PAM cole Age/Sex: 34/F Location: [facility] Status: Signed Intake Vital Signs 01/29/25 08:45 02/26/25 15:39 03/23/25 10:00 Height 5 ft 5 in 5 ft 5 in 5 ft 5 in Weight: 216 lb 4 oz 222 lb BMI 35.9 36.9 BP 117/76 114/72 Intake Visit Reasons: 28 WK OB/Glucose Chief Complaint: 28 Week OB/glucose Clinical Technologist Required: No Is patient in pain?: No [...] mg-folate no.1 1 mg-dha 300 mg capsule (PNV-[place]) prochlorperazine maleate 10 mg 10 mg PO [...] (Updated 03/23/25 @ 10:25 by Bertha May PRODUCTION OPERATOR, PRODUCTION OPERATOR-C) Anxiety and depression Elective Dizziness Shortness of [...] current occupational status: employed 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 Date Name GA/Weeks Outcome Route Bth Weight Infant Gen Labor Lgth Anesthesia Del Locatn Provider FOB 03/21/18 Justin 40 live - full term 9lbs 7oz Male epidural [facility] Natali Kilpatrick 06/12/19 Thakur-Goes by Tevin 40 live - full term 8lbs 8oz Male epidural [facility] Dr. Olena Kilpatrick 01/13/21 Isamar 40 live - full term 7lbs 6oz Female epidural [facility] Hafsa Kilpatrick 07/10/24 elective Delivery Date: 03/21/18 [...] [] Specifi (more content not included)... Normal [facility] Platelet countOrdered By: Paolo Villar on 03-23-2025 Platelets (Bld) [#/Vol] 179 10*3/uL 150-450 [facility] RBC Auto (Bld) [#/Vol]Ordere d By: Dulce Villar on 03-23-2025 RBC (Bld) [#/Vol] 3.85 10*6/uL Low 4.2-5.4 [facility] Syphilis Antibodieson 2024 Syphilis Abs Non-Reactive Normal Nonreactive [facility] Comment on above: Performed By: #### L 501.0900, L501.4405, L501.4100, L501.1400, L100.0500, L501.1105 #### [facility] [address] [place], [address] White blood cell (WBC) count Ordered By: Dulce Villar on 03-23-2025 WBC (Bld) [#/Vol] 7.0 10*3/uL 4.4-11.0 [facility] Laboratory - Chemistry and C hemistry - challengeOrdered By: Dulce Villar on 02-26-2025 Glucose Ql (U) Negative [facility] - UrinalysisOrder ed By: Dulce Villar on 02-26-2025 Protein Ql (U) Negative [facility] Asset Protection Professional Office Visit Reporton 02-26-2025 Asset Protection Professional Office Visit Report [facility] [address], [address] [place] [address] OFFICE VISIT Date of Service: 02/26/25 MR#: [id number] Acct: [id number] Name: SHIRA ARBOLEDA Rep #: [id number] : 1990 Provider: Dr. 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 Date Name GA/Weeks Outcome Route Bth Weight Gen Labor Lgth Anesthesia Del Locatn Provider FOSergio 03/21/18 Justin 40 live - full term 9lbs 7oz Male epidural [facility] S NGOZI Kilpatrick 06/12/19 Blaze-Quan by Tevin 40 live - full term 8lbs 8oz Male epidural [facility] Dr. Olena Kilpatrick 01/13/21 Isamar 40 live - full term 7lbs 6oz Female epidural [facility] Hafsa [place] Olena Finesse 07/10/24 elective Delivery [...] Specific Issue/Nia (more content not included)... Normal [facility] Amphetamine detection with 1 000 ng/mL as cutoffOrdered By: Dulce Villar on 01-29-2025 Amphetamines Screen method >1000 ng/mL Ql (U) Negative < 200 ng/mL [facility] Laboratory - Chemistry and C hemistry - challengeOrdered By: Mary Madrigal on 01-29-2025 Glucose Ql (U) Negative [facility] - UrinalysisOrder ed By: Mary Madrigal on 01-29-2025 Protein Ql (U) Negative [facility] No Panel InformationOrdered By: Dulce Villar on 01-29-2025 Urine Buprenorphine Qualitative Negative < 200 ng/mL [facility] Urine Oxycodone Screen Negative < 100 ng/mL [facility] Asset Protection Professional Office Visit Reporton 01-29-2025 Asset Protection Professional Office Visit Report [facility] [address], [address] [place] [address] OFFICE VISIT Date of Service: 01/29/25 MR#: [id number] Acct: [id number] Name: SHIRA ARBOLEDA Rep #: [id number] : 1990 Provider: SMITA Garcias ams Age/Sex: 34/F Location[place] [facility] Status: Signed Intake Vital Signs 11/16/24 13:00 01/01/25 10:14 01/29/25 08:45 Height 5 ft 5 in 5 ft 5 in 5 ft 5 in Weight: 205 lb 4 oz BMI 34.1 BP 114/70 Intake Visit Reasons: 20 wk ob Chief Complaint: 20 Week OB Clinical Technologist Required: No Is patient in pain?: No [...] mg-folate no.1 1 mg-dha 300 mg capsule (PNV-[place]) hydroxyzine HCl 25 mg tablet 25 mg [...] current occupational status: employed 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 Date Name GA/Weeks Outcome Route Bth Weight Gen Labor Lgth Anesthesia Del Locatn Provider FOB 03/21/18 Justin 40 live - full term 9lbs 7oz Male epidural [facility] Natali Kilpatrick 06/12/19 Thakur-Goes by Tevin 40 live - full term 8lbs 8oz Male epidural [facility] Dr. Olena Kilpatrick 01/13/21 Isamar 40 live - full term 7lbs 6oz Female epidural [facility] Hafsa Kilpatrick 07/10/24 elective Delivery Date: 03/21/18 [...] control p (more content not included)... Normal [facility] Quantitative urine opiates m easurementOrdered By: Dulce Villar on 01-29-2025 Opiates Ql (U) Negative < 300 ng/mL [facility] Screening urine fentanyl bharti surementOrdered By: Dulce Villar on 01-29-2025 fentaNYL Screen Ql (U) Negative [facility] Urine Drug Screen (VISTA)on 01-29-2025 AMPHETAMINES Negative Normal <1000 ng/mL [facility] Comment on above: Order Comment: UNKNO WN Performed By: #### L 501.0900, L501.4405, L501.4100, L501.1400, L100.0500, L501.1105 #### [facility] [address] [place], [place], [phone] BARBITIURATES Negative Normal < 200 ng/mL [facility] Comment on above: Order Comment: UNKNO WN Performed By: #### L 501.0900, L501.4405, L501.4100, L501.1400, L100.0500, L501.1105 #### [facility] [address] [place], [place], [phone] (288) BENZODIAZIPINE Negative Normal < 200 ng/mL [facility] Comment on above: Order Comment: UNKNO WN Performed By: #### L 501.0900, L501.4405, L501.4100, L501.1400, L100.0500, L501.1105 #### [facility] [address] [place], [address] BUP Ur Drug Scr Negative Normal < 200 ng/mL [facility] Comment on above: Order Comment: UNKNO WN Performed By: #### L 501.0900, L501.4405, L501.4100, L501.1400, L100.0500, L501.1105 #### [facility] [address] [place], [address] COCAINE Negative Normal < 300 ng/mL [facility] Comment on above: Order Comment: UNKNO WN Performed By: #### L 501.0900, L501.4405, L501.4100, L501.1400, L100.0500, L501.1105 #### [facility] [address] [place], [address] Fentanyl Negative Normal [facility] Comment on above: Order Comment: UNKNO WN Performed By: #### L 501.0900, L501.4405, L501.4100, L501.1400, L100.0500, L501.1105 #### [facility] [address] [place], [address] METHADONE Negative Normal < 300 ng/mL [facility] Comment on above: Order Comment: UNKNO WN Performed By: #### L 501.0900, L501.4405, L501.4100, L501.1400, L100.0500, L501.1105 #### [facility] [address] [place], [address] OPIATES Negative Normal < 300 ng/mL [facility] Comment on above: Order Comment: UNKNO WN Performed By: #### L 501.0900, L501.4405, L501.4100, L501.1400, L100.0500, L501.1105 #### [facility] [address] [place], [address] OXYCODONE Negative Normal < 100 ng/mL [facility] Comment on above: Order Comment: UNKNO WN Performed By: #### L 501.0900, L501.4405, L501.4100, L501.1400, L100.0500, L501.1105 #### [facility] [address] [place], [address] PCP Negative Normal < 25 ng/mL [facility] Comment on above: Order Comment: UNKNO WN Performed By: #### L 501.0900, L501.4405, L501.4100, L501.1400, L100.0500, L501.1105 #### [facility] [address] [place], [address] THC Negative Normal < 50 ng/mL [facility] Comment on above: Order Comment: UNKNO WN Performed By: #### L 501.0900, L501.4405, L501.4100, L501.1400, L100.0500, L501.1105 #### [facility] [address] [place], [address] Urine benzodiazepine levelOr dered By: Dulce Villar on 01-29-2025 Benzodiazepines Ql (U) Negative < 200 ng/mL [facility] Urine cocaine levelOrdered B y: Dulce Villar on 01-29-2025 Cocaine Ql (U) Negative < 300 ng/mL [facility] Urine ztdig-2-esvglbplnktwci abinol (THC) measurementOrdered By: Dulce Villar on 01-29-2025 Cannabinoids Screen Ql (U) Negative < 50 ng/mL [facility] Urine phencyclidine (PCP) de tectionOrdered By: Dulce Villar on 01-29-2025 Phencyclidine Ql (U) Negative < 25 ng/mL [facility] Asset Protection Professional Office Visit Reporton 01-01-2025 Asset Protection Professional Office Visit Report [facility] [place] [address] OFFICE VISIT Date of Service: 01/01/25 MR#: [id number] Acct: [id number] Name: SHIRA ARBOLEDA Rep #: [id number] : 1990 Provider: Dr. 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 Date Name GA/Weeks Outcome Route Bth Weight Infant Gen Labor Lgth Anesthesia Del Locatn Provider FOSergio 03/21/18 Justin 40 live - full term 9lbs 7oz Male epidural [facility] Natali Kilpatrick 06/12/19 Blaze-Quan by Tevin 40 live - full term 8lbs 8oz Male epidural [facility] Dr. Olena Kilpatrick 01/13/21 Isamar 40 live - full term 7lbs 6oz Female epidural [facility] D vinnie Kilpatrick 07/10/24 elective Delivery Date: [...] PP contro (more content not included)... Normal [facility] Urine Cultureon 12-06-2024 [facility] Urine Culture Urine Culture Urine Culture Streptococcus agalactiae (B) [place] Count 1000-10,000 Mixed Gram Positive Organisms Mixed Gram Positive Organisms MIXC Mixed contaminants. Submit a new specimen if indicated. Streptococcus agalactiae (B): REACTION cefTRIAXone Islt [place] <=0.12 Clindamycin.induced Susc Islt NEG Linezolid Islt [place] <=2 Vancomycin Islt [place] 0.5 S Normal [facility] Comment on above: Performed By: #### L 501.0900, L501.4405, L501.4100, L501.1400, L100.0500, L501.1105 #### [facility] [address] [place], [place], [address] Laboratory - Chemistry and C hemistry - challengeOrdered By: Dulce Villar on 12-03-2024 Bilirubin Ql (U) Negative [facility] Glucose Ql (U) Negative [facility] Ketones Ql (U) Negative [facility] pH (U) 6.0 [pH] [facility] Specific gravity (U) [Rel density] 1.020 [facility] Urobilinogen (U) [Mass/Vol] 0.7169661 mg/dL [facility] Laboratory - Hematology and Cell countsOrdered By: Dulce Villar on 12-03-2024 Hemoglobin Ql (U) Trace [facility] Laboratory - Specimen inform ationOrdered By: Dulce Villar on 12-03-2024 Clarity (U) Clear [facility] Color (U) YELLOW [facility] Laboratory - UrinalysisOrder ed By: Dulce Villar on 12-03-2024 Nitrite Ql (U) Negative [facility] Protein Ql (U) Negative [facility] [facility] No Panel InformationOrdered By: Dulce Villar on 12-03-2024 Urine Leukocytes Positive [facility] Urine Non-Hemolyzed Blood Trace [facility] Asset Protection Professional Office Visit Reporton 12-03-2024 Asset Protection Professional Office Visit Report [facility] [address], [address] [place] [address] OFFICE VISIT Date of Service: 12/03/24 MR#: [id number] Acct: [id number] Name: SHIRA ARBOLEDA Rep #: [id number] [...] BP 119/79 Intake Visit Reasons: 12wk OB Clinical Technologist Required: No Is patient in pain?: Yes [...] mg-folate no.1 1 mg-dha 300 mg capsule (PNV-[place]) hydroxyzine HCl 25 mg tablet 25 mg [...] current occupational status: employed 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 Date Name GA/Weeks Outcome Route Bth Weight Infant Gen Labor Lgth Anesthesia Del Locatn Provider FOB 03/21/18 Justin 40 live - full term 9lbs 7oz Male epidural [facility] S NGOZI Kilpatrick 06/12/19 Thakur-Goes by Tevin 40 live - full term 8lbs 8oz Male epidural [facility] Dr. Olena Kilpatrick 01/13/21 Isamar 40 live - full term 7lbs 6oz Female epidural [facility] Hafsa Kilpatrick 07/10/24 elective Delivery Date: 03/21/18 [...] Issue/Plans Co (more content not included)... Normal [facility] Urine cultureOrdered By: Javier Villar on 12-03-2024 Bacteria identified Cx Nom (U) Streptococcus agalactiae (B) Abnormal [facility] Bacteria identified Cx Nom (U) Positive Abnormal [facility] L3890.6102on 11-18-2024 HEP B Surf Ag Non-Reactive Normal Nonreactive [facility] Comment on above: Result Comment: Reac tive: Presumptive evidence of HBV. Repeatedly reactive samples must be confirmed using a neutralization test (Elecsys HBsAg Confirmatory Test) Non-Reactive: HBsAg not detected; does not exclude the possibility of exposure to HBV Performed By: #### L 501.0900, L501.4405, L501.4100, L501.1400, L100.0500, L501.1105 #### [facility] [address] [place], [address] Absolute lymphocyte countOrd ered By: Dulce Villar on 11-16-2024 Lymphocytes Auto (Unsp spec) [#/Vol] 2.57 10*3/uL 0.83-4.51 [facility] Absolute neutrophil countOrd ered By: Dulce Villar on 11-16-2024 Neutrophils (Bld) [#/Vol] 6.4 10*3/uL 2.0-7.7 [facility] Automated lymphocyte count a s percentage of total leukocytesOrdered By: Dulce Villar on 11-16-2024 Lymphocytes/100 WBC Auto (Unsp spec) 26.5 % 19-41 [facility] Basophil percentageOrdered B y: Dulce Villar on 11-16-2024 Basophils/100 WBC (Bld) 0.2 % 0-1 [facility] CBC W/Diff, Automatedon 11-05 Absolute Lymph 2.57 X10 3/uL Normal 0.83-4.51 [facility] Comment on above: Performed By: #### L 501.0900, L501.4405, L501.4100, L501.1400, L100.0500, L501.1105 #### [facility] [address] [place], [address] Absolute Neut 6.4 X10 3/uL Normal 2.0-7.7 [facility] Comment on above: Performed By: #### L 501.0900, L501.4405, L501.4100, L501.1400, L100.0500, L501.1105 #### [facility] [address] [place], [address] Basophils/100 WBC (Bld) 0.2 % Normal 0-1 [facility] Comment on above: Performed By: #### L 501.0900, L501.4405, L501.4100, L501.1400, L100.0500, L501.1105 #### [facility] [address] [place], [address] Eosinophils/100 WBC (Bld) 0.6 % Normal 0-5 [facility] Comment on above: Performed By: #### L 501.0900, L501.4405, L501.4100, L501.1400, L100.0500, L501.1105 #### [facility] [address] [place], [address] Erythrocyte distribution width (RBC) [Ratio] 12.2 % Normal 11.6-14.6 [facility] Comment on above: Performed By: #### L 501.0900, L501.4405, L501.4100, L501.1400, L100.0500, L501.1105 #### [facility] [address] [place], [address] Hematocrit (Bld) [Volume fraction] 39.2 % Normal 37-47 [facility] Comment on above: Performed By: #### L 501.0900, L501.4405, L501.4100, L501.1400, L100.0500, L501.1105 #### [facility] [address] [place], [address] Hemoglobin (Bld) [Mass/Vol] 13.1 g/dL Normal 12.0-15.0 [facility] Comment on above: Performed By: #### L 501.0900, L501.4405, L501.4100, L501.1400, L100.0500, L501.1105 #### [facility] [address] [place], [address] IG% 0.400 Normal 0.0-0.9 [facility] Comment on above: Result Comment: IG% - Immature Granulocytes (promyelocytes, myelocytes and metamyelocytes) > 1% indicates that a LEFT SHIFT is Present. Performed By: #### L 501.0900, L501.4405, L501.4100, L501.1400, L100.0500, L501.1105 #### [facility] [address] [place], [address] Lymphocytes/100 WBC (Bld) 26.5 % Normal 19-41 [facility] Comment on above: Performed By: #### L 501.0900, L501.4405, L501.4100, L501.1400, L100.0500, L501.1105 #### [facility] [address] [place], [address] MCH (RBC) [Entitic mass] 29.0 pg Normal 27.0-32.0 [facility] Comment on above: Performed By: #### L 501.0900, L501.4405, L501.4100, L501.1400, L100.0500, L501.1105 #### [facility] [address] [place], [address] MCHC (RBC) [Mass/Vol] 33.4 g/dL Normal 32-36 [facility] Comment on above: Performed By: #### L 501.0900, L501.4405, L501.4100, L501.1400, L100.0500, L501.1105 #### [facility] [address] [place], [address] MCV (RBC) [Entitic vol] 86.7 fL Normal 81-99 [facility] Comment on above: Performed By: #### L 501.0900, L501.4405, L501.4100, L501.1400, L100.0500, L501.1105 #### [facility] [address] [place], [address] Monocytes/100 WBC (Bld) 6.5 % Normal 0-10 [facility] Comment on above: Performed By: #### L 501.0900, L501.4405, L501.4100, L501.1400, L100.0500, L501.1105 #### [facility] [address] [place], [address] Neutrophils/100 WBC (Bld) 65.8 % Normal 47-70 [facility] Comment on above: Performed By: #### L 501.0900, L501.4405, L501.4100, L501.1400, L100.0500, L501.1105 #### [facility] [address] [place], [address] Nucleated RBC (Bld) [#/Vol] 0 10*3/uL Normal 0-5 [facility] Comment on above: Performed By: #### L 501.0900, L501.4405, L501.4100, L501.1400, L100.0500, L501.1105 #### [facility] [address] [place], [address] Platelet mean volume (Bld) [Entitic vol] 9.6 fL Normal 6.2-12.0 [facility] Comment on above: Performed By: #### L 501.0900, L501.4405, L501.4100, L501.1400, L100.0500, L501.1105 #### [facility] [address] [place], [address] Platelets (Bld) [#/Vol] 239 10*3/uL Normal 150-450 [facility] Comment on above: Performed By: #### L 501.0900, L501.4405, L501.4100, L501.1400, L100.0500, L501.1105 #### [facility] [address] [place], [address] RBC (Bld) [#/Vol] 4.52 10*6/uL Normal 4.2-5.4 [facility] Comment on above: Performed By: #### L 501.0900, L501.4405, L501.4100, L501.1400, L100.0500, L501.1105 #### [facility] [address] [place], [address] (042) RDW SD 38.4 fl Normal 35.1-43.9 [facility] Comment on above: Performed By: #### L 501.0900, L501.4405, L501.4100, L501.1400, L100.0500, L501.1105 #### [facility] [address] [place], [address] (964) WBC (Bld) [#/Vol] 9.7 10*3/uL Normal 4.4-11.0 [facility] Comment on above: Performed By: #### L 501.0900, L501.4405, L501.4100, L501.1400, L100.0500, L501.1105 #### [facility] [address] [place], [address] (288) Eosinophil percentageOrdered By: Dulce Villar on 11-16-2024 Eosinophils/100 WBC (Bld) 0.6 % 0-5 [facility] Erythrocyte distribution wid th ratioOrdered By: Dulce Villar on 11-16-2024 Erythrocyte distribution width (RBC) [Ratio] 12.2 % 11.6-14.6 [facility] Erythrocyte distribution wid th standard deviationOrdered By: Dulce Villar on 11-16-2024 Erythrocyte distribution width (RBC) [Ratio] 38.4 fl 35.1-43.9 [facility] HIVon 11-16-2024 HIV Non-Reactive Normal Nonreactive [facility] Comment on above: Result Comment: Non- Reactive Reactive Repeatedly reactive samples must be confirmed according to CDC recommended confirmatory algorithms. The subresults for either HIVAG or AHIV can be used as an aid in the selection of the confirmation algorithm for reactive samples. Send out specimens with Reactive results to [facility] for confirmation. Order the HIV antibody detection and differentiation: lc#[id number] Performed By: #### L 501.0900, L501.4405, L501.4100, L501.1400, L100.0500, L501.1105 #### [facility] [address] [place], [place], [address] Hematocrit Auto (Bld) [Volum e fraction]Ordered By: Dulce Villar on 11-16-2024 Hematocrit (Bld) [Volume fraction] 39.2 % 37-47 [facility] Hemoglobin measurementOrdere d By: Dulce Villar on 11-16-2024 Hemoglobin (Bld) [Mass/Vol] 13.1 g/dL 12.0-15.0 [facility] Hepatitis C Antibodyon 11-16 Hepatitis C Ab Non-Reactive Normal Nonreactive [facility] Comment on above: Result Comment: Reac tive: Presumptive evidence of antibodies to HCV. Follow CDC recommendations for supplemental testing. Non-Reactive: Antibodies to HCV were not detected; does not exclude the possibility of exposure to HCV Reactive Results are presumptive evidence of antibodies to HCV. Follow CDC recommendations for supplemental testing. Order confirmation testing: HCV Quant by PCR testing - HCVPCR #[id number] Non Reactive: < 0.8 Equivocal: >/= 0.8 to < 1.0 Reactive: >/= 1.0 The CDC requires that a reactive/equivocal HCV antibody result be sent out for confirmation. HCV Quant by PCR testing. Performed By: #### L 501.0900, L501.4405, L501.4100, L501.1400, L100.0500, L501.1105 #### [facility] [address] [place], [place], [id number] Immature granulocytes/100 WB C Auto (Bld)Ordered By: Dulce Villar on 11-16-2024 Immature granulocytes/100 WBC (Bld) 0.400 % 0.0-0.9 [facility] Comment on above: IG% - Immature Granu locytes (promyelocytes, myelocytes and metamyelocytes) > 1% indicates that a LEFT SHIFT is Present. L509.4006on 11-16-2024 [place] IgG REAC Normal Nonreactive [facility] Comment on above: Result Comment: Anti body Result: Interpretation Non-Reactive: Non-Immune Reactive: Immune The following results were obtained with the Elecsys [place]ella IgG assay. Results from assays of other manufacturers cannot be used interchangeably. Performed By: #### L 501.0900, L501.4405, L501.4100, L501.1400, L100.0500, L501.1105 #### [facility] [address] [place], [address] Laboratory - Chemistry and C hemistry - challengeOrdered By: Dulce Villar on 11-16-2024 Glucose Ql (U) Negative [facility] Laboratory - Microbiology an d Antimicrobial susceptibilityOrdered By: Dulce Villar on 11-16-2024 HBV surface Ag Ql (S) Non-Reactive Nonreactive [facility] Comment on above: Reactive: Presumptiv e evidence of HBV. Repeatedly reactive samples must be confirmed using a neutralization test (Elecsys HBsAg Confirmatory Test)Non-Reactive: HBsAg not detected; does not exclude the possibility of exposure to HBV Laboratory - UrinalysisOrder ed By: Dulce Villar on 11-16-2024 Protein Ql (U) Negative [facility] MCV (mean corpuscular volume ) determinationOrdered By: Dulce Villar on 11-16-2024 MCV (RBC) [Entitic vol] 86.7 fL 81-99 [facility] Mean corpuscular hemoglobin (MCH) determinationOrdered By: Dulce Villar on 11-16-2024 MCH (RBC) [Entitic mass] 29.0 pg 27.0-32.0 [facility] Mean corpuscular hemoglobin concentration (MCHC) determinationOrdered By: Dulce Villar on 11-16-2024 MCHC (RBC) [Mass/Vol] 33.4 g/dL 32-36 [facility] Mean platelet volume determi nationOrdered By: Dulce Villar on 11-16-2024 Platelet mean volume (Bld) [Entitic vol] 9.6 fL 6.2-12.0 [facility] Monocyte percentageOrdered B y: Dulce Villar on 11-16-2024 Monocytes/100 WBC (Bld) 6.5 % 0-10 [facility] NATERAon 11-16-2024 NATURA SEE SCANNED REPORT Normal [facility] Comment on above: Performed By: #### L 501.0900, L501.4405, L501.4100, L501.1400, L100.0500, L501.1105 #### [facility] [address] [place], [address] Neutrophil percentageOrdered By: Dulce Villar on 11-16-2024 Neutrophils/100 WBC (Bld) 65.8 % 47-70 [facility] No Panel InformationOrdered By: Dulce Villar on 11-16-2024 HIV (1&2) Antibody Non-Reactive Nonreactive [facility] Comment on above: Non-ReactiveReactive Repeatedly reactive samples must be confirmed according to CDC recommended confirmatory algorithms. The subresults for either HIVAG or AHIV can be used as an aid in the selection of the confirmation algorithm for reactive samples.Send out specimens with Reactive results to [facility] for confirmation.Order the HIV antibody detection and differentiation: #[id number] Nucleated red blood cell per centageOrdered By: Dulce Villar on 11-16-2024 Nucleated RBC/100 WBC (Bld) [Ratio] 0 % 0-5 [facility] Asset Protection Professional Office Visit Reporton 11-16-2024 Asset Protection Professional Office Visit Report [facility] [address], [address] [place] [address] OFFICE VISIT Date of Service: 11/16/24 MR#: [id number] Acct: [id number] Name: SHIRA ARBOLEDA Rep #: [id number] : 1990 Provider: Dr. 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 Date Name GA/Weeks Outcome Route Bth Weight Infant Gen Labor Lgth Anesthesia Del Locatn Provider FOB 03/21/18 Justin 40 live - full term 9lbs 7oz Male epidural [facility] Natali Kilpatrick 06/12/19 Thakur-Goes by Tevin 40 live - full term 8lbs 8oz Male epidural [facility] Dr. Olena Kilpatrick 01/13/21 Isamar 40 live - full term 7lbs 6oz Female epidural [facility] Hafsa Kilpatrick 07/10/24 elective Delivery Date: 03/21/18 [...] list review (more content not included)... Normal [facility] Platelet countOrdered By: Paolo Villar on 11-16-2024 Platelets (Bld) [#/Vol] 239 10*3/uL 150-450 [facility] RBC Auto (Bld) [#/Vol]Ordere d By: Dulce Villar on 11-16-2024 RBC (Bld) [#/Vol] 4.52 10*6/uL 4.2-5.4 [facility] Syphilis Antibodieson 2024 Syphilis Abs Non-Reactive Normal Nonreactive [facility] Comment on above: Performed By: #### L 501.0900, L501.4405, L501.4100, L501.1400, L100.0500, L501.1105 #### [facility] [address] [place], [place], [id number] Type AND Screenon 11-16-2024 Ab SCREEN GEL Negative Normal [facility] Comment on above: Order Comment: PN Performed By: #### L 501.0900, L501.4405, L501.4100, L501.1400, L100.0500, L501.1105 #### [facility] [address] [place], [place], [address] White blood cell (WBC) count Ordered By: Dulce Villar on 11-16-2024 WBC (Bld) [#/Vol] 9.7 10*3/uL 4.4-11.0 [facility] Chlamydia/GC CARRIE aptimaon CHLAMY,NUC ACID Negative Normal Negative [facility] Comment on above: Performed By: #### L 501.0900, L501.4405, L501.4100, L501.1400, L100.0500, L501.1105 #### [facility] [address] [place], [place], [address] GC BY NUC ACID Negative Normal Negative [facility] Comment on above: Result Comment: Perf ormed at: =G - [facility] [address] [place], [place] [id number] Information Resources Manager: Faby Leyva MD, Phone: [phone] Performed By: #### L 501.0900, L501.4405, L501.4100, L501.1400, L100.0500, L501.1105 #### [facility] [address] [place], [place], [address] Urine Cultureon 11-08-2024 [facility] Clinical correlation necessary, Possible skin contamination. Urine Culture Presumptive Lactobacillus sp. [place] Count 50,000-80,000 Normal [facility] Comment on above: Performed By: #### L 501.0900, L501.4405, L501.4100, L501.1400, L100.0500, L501.1105 #### [facility] [address] [place], [place], [address] Chlamydia trachomatis rRNA d etection by probe and target amplification methodOrdered By: Dulce Villar on 11-06-2024 C. trachomatis rRNA CARRIE+probe Ql (Unsp spec) Negative Negative [facility] Neisseria gonorrhoeae nuclei c acid detection by amplified probe techniqueOrdered By: Dulce Villar on 11-06-2024 N. gonorrhoeae DNA CARRIE+probe Ql (Unsp spec) Negative Negative [facility] Comment on above: Performed at: =G - [facility] [address] [id number] Director: Faby Leyva MD, Phone: [phone] Asset Protection Professional Office Visit Reporton 11-06-2024 Asset Protection Professional Office Visit Report [facility], [address] [place] [address] OFFICE VISIT Date of Service: 11/06/24 MR#: [id number] Acct: [id number] Name: SHIRA ARBOLEDA Rep #: [id number] : 1990 Provider: Dr. 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 [employer] current occupational exposures/hazards: No pets and animals: No history of recent travel: Yes ([place], [place], [place], [facility]) out of state: Yes out of [...] physical activity do you participate in: none naomi/holiness: None seatbelt use: always do you feel safe at home: Yes additional social history: FOB/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 Date Name GA/Weeks Outcome Route Bth Weight Infant Gen Labor Lgth Anesthesia Del Locatn Provider FOB 03/21/18 Justin 40 live - full term 9lbs 7oz Male epidural [facility] S NGOZI Kilpatrick 06/12/19 Thakur-Goes by Tevin 40 live - full term 8lbs 8oz Male epidural [facility] Dr. Olena Kilpatrick 01/13/21 Isamar 40 live - full term 7lbs 6oz Female epidural [facility] Hafsa Kilpatrick 07/10/24 elective Delivery Date: 03/21/18 [...] 170 -???-?? (more content not included)... Normal [facility] Urine cultureOrdered By: Javier Villar on 11-06-2024 Bacteria identified Cx Nom (U) Presumptive Lactobacillus sp. Abnormal [facility] Asset Protection Professional Office Visit Reporton 09-01-2024 Asset Protection Professional Office Visit Report [facility]'s [address], [address] [place] [address] OFFICE VISIT Date of Service: 09/01/24 MR#: [id number] Acct: [id number] Name: SHIRA ARBOLEDA Rep #: [id number] : 1990 Provider: Dr. 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 Normal [facility] Thyroidon 07-20-2024 Thyroid [facility] [address] [place] [address] Thyroid MR#: [id number] Acct: [id number] Name: SHIRA ARBOLEDA Rep #: [id number] : 1990 F 34 From: Helder Pereyra PCP: Dr. Braulio Bosch MD Status: REG CLI Study: Thyroid Date of Exam: 07/20/24 Exam# [id number] Ordering Dr: Dulce Villar [id number] INDICATION: thyromegaly EXAMINATION: Ultrasound US Thyroid (eg [...] Braulio Bosch MD; Dr. Dulce Villar MD Hearing Instrument Specialist: Signed Normal [facility] Chlamydia/GC CARRIE aptimaon CHLAMY,NUC ACID Negative Normal Negative [facility] Comment on above: Performed By: #### L 501.0900, L501.4405, L501.4100, L501.1400, L100.0500, L501.1105 #### [facility] [address] [place], [address] GC BY NUC ACID Negative Normal Negative [facility] Comment on above: Result Comment: Perf ormed at: =G - [facility] [address] [place] [id number] Information Resources Manager: Faby Leyva MD, Phone: [phone] Performed By: #### L 501.0900, L501.4405, L501.4100, L501.1400, L100.0500, L501.1105 #### [facility] [address] [place], [address] Urine Cultureon 07-05-2024 [facility] Staphylococcus saprophyticus urine sensitivities are not recommended per CLSI guidelines. Treatment with Nitrofurantoin, Trimethoprim/Sulfa or a Fluroquinolone is suggested. Staphylococcus saprophyticus [place] Count 80,000-100,000 Staphylococcus saprophyticus: REACTION Doxycycline Islt [place] <=0.5 Clindamycin.induced Susc Islt NEG Gentamicin Islt [place] <=0.5 S Linezolid Islt [place] 4 S Nitrofurantoin Islt [place] <=16 S Oxacillin Susc Islt 2 R Tetracycline Islt [place] <=1 S TMP SMX Islt [place] <=10 S Vancomycin Islt [place] 1 S Normal [facility] Comment on above: Performed By: #### L 501.0900, L501.4405, L501.4100, L501.1400, L100.0500, L501.1105 #### [facility] [address] [place], [address] Asset Protection Professional Office Visit Reporton 07-03-2024 Asset Protection Professional Office Visit Report [facility] [address], [address] [place] [address] OFFICE VISIT Date of Service: 07/03/24 MR#: [id number] Acct: [id number] Name: SHIRA ARBOLEDA Rep #: [id number] : 1990 Provider: Dr. 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 Date Name GA/Weeks Outcome Route Bth Weight Gen Labor Lgth Anesthesia Del Locatn Provider FOB 03/21/18 Justin 40 live - full term 9lbs 7oz Male epidural [facility] S NGOZI [place] 06/12/19 Tevin 40 live - full term 8lbs 8oz Male epidural [facility] D vinnie Kilpatrick 01/13/21 Isamar 40 live - full term 7lbs 6oz Female epidural [facility] Hafsa Kilpatrick Delivery Date: 03/21/18 Last Updated [...] Chromosome Abnormality: (more content not included)... Normal [facility] Serum or plasma choriogonado tropin detectionOrdered By: Ashlyn Paredes on 04-26-2023 HCG ( test) Ql < 1 mIU/mL <4 [facility] Comment on above: hCG levels with Gest ational AgeGestational Age hCG mIU/mL (IU/L)0.2 - 1 week 5 - 501-2 weeks 50 - 5002-3 weeks 100 - 89838-8 weeks 500 - 632822-3 weeks 1000 - 975987-7 weeks 43403 - 100,0006-8 weeks 99548 - 200,0002-3 months 15749 - 100,000 Absolute lymphocyte counton 07-03-2022 Lymphocytes Auto (Unsp spec) [#/Vol] 1.89 10*3/uL 0.83-4.51 [facility] Work Phone: Basophil percentageon 2021 Basophils/100 WBC (Bld) 0.3 % 0-1 [facility] Work Phone: Bilirubin [Mass/Vol] 0.40 mg/dL 0.20-1.00 [facility] Work Phone: Comment on above: For patients on eltr ombopag therapy, use of Dimension [place] TBIL is not recommended. Chloride [Moles/Vol] 104 mmol/L 98-107 [facility] Work Phone: Eosinophils/100 WBC (Bld) 0.6 % 0-5 [facility] Work Phone: Glucose [Mass/Vol] 99 mg/dL 74-106 [facility] Work Phone: Neutrophils (Bld) [#/Vol] 8.0 10*3/uL 2.0-7.7 [facility] Work Phone: Neutrophils/100 WBC (Bld) 75.4 % 47-70 [facility] Work Phone: Potassium [Moles/Vol] 3.7 mmol/L 3.5-5.1 [facility] Work Phone: Protein [Mass/Vol] 7.7 g/dL 6.4-8.2 [facility] Work Phone: Sodium [Moles/Vol] 138 mmol/L 136-145 [facility] Work Phone: WBC (Bld) [#/Vol] 10.6 10*3/uL 4.4-11.0 [facility] Work Phone: Blood erythrocytes count (nu mber/volume)on 07-03-2022 RBC (Bld) [#/Vol] 4.64 10*6/uL 4.2-5.4 [facility] Work Phone: Blood hemoglobin measurement (mass/volume)on 07-03-2022 Hemoglobin (Bld) [Mass/Vol] 14.1 g/dL 12.0-15.0 [facility] Work Phone: Blood lymphocytes/100 leukoc yteson 07-03-2022 Lymphocytes/100 WBC (Bld) 17.8 % 19-41 [facility] Work Phone: Blood monocytes/100 leukocyt eson 07-03-2022 Monocytes/100 WBC (Bld) 5.4 % 0-10 [facility] Work Phone: Blood platelet mean volumeon 07-03-2022 Platelet mean volume (Bld) [Entitic vol] 10.3 fL 6.2-12.0 [facility] Work Phone: [phone] Determination of erythrocyte mean corpuscular volume (MCV)on 07-03-2022 MCV (RBC) [Entitic vol] 91.6 fL 81-99 [facility] Work Phone: Erythrocyte sedimentation ra efrain 07-03-2022 ESR (Bld) [Velocity] 19 mm/h 0-30 [facility] Work [facility]: Hematocrit Auto (Bld) [Volum e fraction]on 07-03-2022 Hematocrit (Bld) [Volume fraction] 42.5 % 37-47 [facility] Work Phone: [phone] Iron measurement (mass/mass) on 07-03-2022 Iron (Unsp spec) [Mass/Mass] 21 ug/dL 50-170 [facility] Work Phone: [phone] Laboratory - Chemistry and C hemistry - challengeon 07-03-2022 ALP [Catalytic activity/Vol] 101 U/L 45-117 [facility] Work Phone: ALT [Catalytic activity/Vol] 27 U/L 13-56 [facility] Work Phone: CO2 [Moles/Vol] 27.0 mmol/L 21.0-32.0 [facility] Work Phone: Cobalamin (Vitamin B12) [Mass/Vol] 571 pg/mL 211-911 [facility] Work Phone: Globulin (S) [Mass/Vol] 3.8 g/dL 2.2-4.2 [facility] Work Phone: Urea nitrogen/Creatinine [Mass ratio] 14.0 mg/mg 10-20 [facility] Work Phone: Laboratory - Hematology and Cell countson 07-03-2022 Erythrocyte distribution width (RBC) [Entitic vol] 39.7 fL 35.1-43.9 [facility] Work Phone: Erythrocyte distribution width (RBC) [Ratio] 12.0 % 11.6-14.6 [facility] Work Phone: Immature granulocytes/100 WBC (Bld) 0.500 % 0.0-0.9 [facility] Work Phone: Comment on above: IG% - Immature Granu locytes (promyelocytes, myelocytes and metamyelocytes) > 1% indicates that a LEFT SHIFT is Present. MCH (RBC) [Entitic mass] 30.4 pg 27.0-32.0 [facility] Work Phone: Nucleated RBC/100 WBC (Bld) [Ratio] 0 % 0-5 [facility] Work Phone: MCHC Auto (RBC) [Mass/Vol]on 07-03-2022 MCHC (RBC) [Mass/Vol] 33.2 g/dL 32-36 [facility] Work Phone: No Panel Informationon 07-03 Anti-Nuclear Antibody Screen Positive Negative [facility] Work Phone: Comment on above: Performed at: [place] [id number] Director: Stevo Moeller PhD, Phone: [phone] Estimated GFR (MDRD) Amer 123 mL/min >60 [facility] Work Phone: Comment on above: GFR Calc Estimated GFR (MDRD) Non-Af Amer 102 mL/min >60 [facility] Work Phone: Comment on above: Non- GFR Calc Thyroid Stimulating Hormone (TSH) 0.56 uIU/mL 0.358-3.74 [facility] Work Phone: Vitamin D 25-Hydroxy 30.0 ng/mL [facility] Work Phone: Comment on above: Vitamin D 25(OH) Sta tus Range Deficiency <20 ng/mL (50nmol/L) Insufficiency 20 - 30 ng/mL (50 - 75 nmol/L) Sufficiency 30 - 100 ng/mL (75 - 250 nmol/L) Toxicity >100 ng/mL (>250 nmol/L) Platelets bldon 07-03-2022 Platelets (Bld) [#/Vol] 231 10*3/uL 150-450 [facility] Work Phone: Serum nuclear antibody titer by immunofluorescenceon 07-03-2022 Nuclear Ab IF (S) [Titer] See comment [facility] Work Phone: Comment on above: TEST RESULT LIMITSAn tinuclear Antibodies, IFA Positive Abnormal Negative <1:80 Borderline 1:80 Positive >1:80Speckled Pattern 1:80 ICAP nomenclature: AC-2,4,5,29Note: For more information about Hep-2 cell patterns useKytepatterLifesum.org, the official website for the InternationalConsensus on Antinuclear Antibody (LAURA) Patterns (ICAP). -----A positive LAURA result may occur in healthy individuals (lowtiter) or be associated with a variety of diseases. Seeinterpretation chart which is not all inclusive:Pattern Antigen Detected Suggested Disease Association Homogeneous DNA(ds,ss), SLE - High titers Nucleosomes, Histones Drug-induced SLE Speckled Sm, SLEEVE TAILOR, SCL-70, SLE,MCTD,PSS (diffuse form), SS-A/SS-B Sjogrens Nucleolar SCL-70, PM-1/SCL High titers Scleroderma, PM/DM Centromere Centromere PSS (limited form) w/Crest syndrome variable Nuclear Dot Sp100,b68-dndaxl Primary Biliary Cirrhosis Nuclear GP210, Primary Biliary CirrhosisMembrane betsey A,B,C TESTING PERFORMED AT [facility]. ORIGINAL REPORT ON FILE IN LAB CONTAINS ADDITIONAL TEST SITE INFORMATION. Serum or plasma C reactive p rotein measurement (mass/volume)on 07-03-2022 CRP [Mass/Vol] 42.90 mg/L 0.0-3.0 [facility] Work Phone: Comment on above: C-Reactive Protein ( CRP) provides useful information for thediagnosis, therapy and monitoring of inflammatory processesand associated diseases. For the evaluation of Relative Riskfor Cardiovascular Disease, a High Sensitivity CRP (HSCRP)should be ordered. Serum or plasma albumin chaitanya urement (mass/volume)on 07-03-2022 Albumin [Mass/Vol] 3.9 g/dL 3.2-5.0 [facility] Work Phone: Serum or plasma albumin/glob ulin mass ratioon 07-03-2022 Albumin/Globulin [Mass ratio] 1.0 {ratio} 0.9-2.4 [facility] Work Phone: Serum or plasma calcium chaitanya urement (mass/volume)on 07-03-2022 Calcium [Mass/Vol] 8.7 mg/dL 8.5-10.1 [facility] Work Phone: Serum or plasma creatinine m easurement (mass/volume)on 07-03-2022 Creatinine [Mass/Vol] 0.71 mg/dL 0.55-1.02 [facility] Work Phone: Comment on above: The validity of the calculated GFR & GFRAA in patients over 70 years has not been determined. Clinical correlation is essential. Serum or plasma urea nitroge n measurement (mass/volume)on 07-03-2022 Urea nitrogen [Mass/Vol] 10 mg/dL 7-18 [facility] Work Phone: Serum rheumatoid factor dete ctionon 07-03-2022 Rheumatoid factor Ql (S) < 10.0 IU/mL <15 [facility] Work Phone: Thin prep Papanicolaou smear with manual screeningon 07-03-2022 Thin prep Papanicolaou smear with manual screening 13 U/L 15-37 [facility] Work Phone: Thin prep Papanicolaou smear with manual screening 7 5-15 [facility] Work Phone: Basophil percentageon 10-27- 2022 Cholesterol [Mass/Vol] 178 mg/dL <200 [facility] Work Phone: Comment on above: <200 mg/dL Desirable 200-240 mg/dL Borderline >240 mg/dL High Risk Glucose [Mass/Vol] 87 mg/dL 74-106 [facility] Work Phone: Triglyceride [Mass/Vol] 70 mg/dL <199 [facility] Work Phone: Comment on above: The drugs N-Acetylcy steine and Metamizole may falsely depress this assay.Serum Triglycerides Reference Interval Normal <150 mg/dL Borderline high 150 - 199 mg/dL High 200 - 499 mg/dL Very High > or = 500 mg/dL Laboratory - Chemistry and C hemistry - challengeon 05-03-2022 Free T4 [Mass/Vol] 0.87 ng/dL 0.76-1.46 [facility] Work Phone: No Panel Informationon 05-03 Miscellaneous Test Comment MAILED SPECIMEN [facility] Work Phone: Thyroid Stimulating Hormone (TSH) 1.01 uIU/mL 0.358-3.74 [facility] Work Phone: Vitamin D 25-Hydroxy 36.8 ng/mL [facility] Work Phone: Comment on above: Vitamin D 25(OH) Sta tus Range Deficiency <20 ng/mL (50nmol/L) Insufficiency 20 - 30 ng/mL (50 - 75 nmol/L) Sufficiency 30 - 100 ng/mL (75 - 250 nmol/L) Toxicity >100 ng/mL (>250 nmol/L) Serum or plasma cholesterol in HDL measurement (mass/volume)on 05-03-2022 Cholesterol in HDL [Mass/Vol] 47 mg/dL >40 [facility] Work Phone: Comment on above: The drugs N-Acetylcy steine and Metamizole may falsely depress this assay. Reference Range HDL <40 mg/dL Low HDL Cholesterol HDL >or= 60 mg/dL High HDL Cholesterol Serum or plasma cholesterol in VLDL measurement (mass/volume)on 05-03-2022 Cholesterol in VLDL [Mass/Vol] 14 mg/dL 5-40 [facility] Work Phone: Serum or plasma low density lipoprotein (LDL) cholesterol measurement (mass/volume)on 05-03-2022 Cholesterol in LDL [Mass/Vol] 117 mg/dL 0-130 [facility] Work Phone: CNOVon 12-09-2018 CNOV Office Visit ([facility] ) -------- SHIRA ARBOLEDA ([id number]) 1990 F Date Time Provider Department 12/09/18 8:45 PM [facility] During your visit today, we [...] by PINA SOLIS MA on 12/10/18 Normal [facility] Vital Signs Date Time Vital Sign Value Performing Clinician Saskiai lyla 05-02-2025 09:23-0400 Diastolic blood pressure 68 mm[Hg] Dr. Braulio Bosch MD Work Phone: 4(095)583-462996 [address] 05-02-2025 09:23-0400 Heart rate 85 /min Dr. Braulio Bosch MD Work Phone: 1(403)259-908840 [place] [address] 05-02-2025 09:23-0400 SaO2% (BldA) [Mass fraction] 97 % Dr. Braulio Bosch MD Work Phone: 2(588)093-531040 [place] [address] 05-02-2025 09:23-0400 Systolic blood pressure 112 mm[Hg] Dr. Braulio Bosch MD Work Phone: 2(998)885-975340 [place] [address] 05-02-2025 00:24-0400 Body height 167.[address] Braulio Bosch MD Work Phone: 0(492)831-062840 [place] [address] 05-02-2025 00:24-0400 Body mass index (BMI) [Ratio] 38.5 kg/m2 Dr. Braulio Bosch MD Work Phone: 3(222)489-517340 [place] [address] 05-02-2025 00:24-0400 Body weight 108.[address] Braulio Bosch MD Work Phone: 2(528)655-206040 [place] [address] 05-02-2025 00:09-0400 Body temperature 97.9 [degF] Dr. Braulio Bosch MD Work Phone: 9(200)098-094940 [place] [address] 05-02-2025 00:09-0400 Respiratory rate 14 /min Dr. rBaulio Bosch MD Work Phone: 1(561)054-442040 [place] [address] 04-23-2025 15:32-0400 Body mass index (BMI) [Ratio] 39.2 kg/m2 Dr. Braulio Bosch MD Work Phone: 8(580)117-796640 [place] [address] 04-23-2025 15:32-0400 Body weight 106.[address] Braulio Bosch MD Work Phone: 7(339)668-297140 [place] [address] 04-23-2025 15:32-0400 Diastolic blood pressure 72 mm[Hg] Dr. Braulio Bosch MD Work Phone: [facility] 04-23-2025 15:32-0400 Systolic blood pressure 106 mm[Hg] Dr. Braulio Bosch MD Work Phone: 0(121)617-600840 [place] [address] 04-08-2025 13:03-0400 Body height 165.[address] Braulio Bosch MD Work Phone: 7(971)235-884840 [place] [address] 04-08-2025 13:03-0400 Body mass index (BMI) [Ratio] 37.7 kg/m2 Dr. Braulio Bosch MD Work Phone: 0(669)430-019840 [place] [address] 04-08-2025 13:03-0400 Body weight 102.[address] Braulio Bosch MD Work Phone: 6(882)193-543940 [place] [address] 04-08-2025 13:03-0400 Diastolic blood pressure 77 mm[Hg] Dr. Braulio Bosch MD Work Phone: 7(043)634-619640 [place] [address] 04-08-2025 13:03-0400 Systolic blood pressure 121 mm[Hg] Dr. Braulio Bosch MD Work Phone: 8(150)833-563140 [place] [address] 04-05-2025 14:35-0400 Body temperature 98.7 [degF] Dr. Braulio Bosch MD Work Phone: 4(120)235-836940 [place] [address] 04-05-2025 14:35-0400 Diastolic blood pressure 78 mm[Hg] Dr. Braulio Bosch MD Work Phone: 9(386)743-904940 [place] [address] 04-05-2025 14:35-0400 Heart rate 78 /min Dr. Braulio Bosch MD Work Phone: 1(992)279-687840 [place] [address] 04-05-2025 14:35-0400 Respiratory rate 16 /min Dr. Braulio Bosch MD Work Phone: 4(147)391-787540 [place] [address] 04-05-2025 14:35-0400 SaO2% (BldA) [Mass fraction] 99 % Dr. Braulio Bosch MD Work Phone: 0(758)000-771340 [place] [address] 04-05-2025 14:35-0400 Systolic blood pressure 126 mm[Hg] Dr. Braulio Bosch MD Work Phone: [facility] 04-05-2025 11:27-0400 Body height 165.[address] Braulio Bosch MD Work Phone: [facility] 04-05-2025 11:27-0400 Body mass index (BMI) [Ratio] 37.5 kg/m2 Dr. Braulio Bosch MD Work Phone: 8(850)030-629596 [address] 04-05-2025 11:27-0400 Body weight 102.[address] Braulio Bosch MD Work Phone: 1(859)797-540840 [place] [address] 04-05-2025 10:12-0400 Diastolic blood pressure 66 mm[Hg] Dr. Braulio Bosch MD Work Phone: 3(350)496-535640 [place] [address] 04-05-2025 10:12-0400 Heart rate 87 /min Dr. Braulio Bosch MD Work Phone: 9(445)259-784040 [place] [address] 04-05-2025 10:12-0400 Systolic blood pressure 110 mm[Hg] Dr. Braulio Bosch MD Work Phone: 5(128)966-218340 [place] [address] 04-05-2025 10:07-0400 Body mass index (BMI) [Ratio] 37.5 kg/m2 Dr. Braulio Bosch MD Work Phone: 1(063)546-670140 [place] [address] 04-05-2025 10:07-0400 Body weight 102.[address] Braulio Bosch MD Work Phone: 1(241)768-632340 [place] [address] 04-05-2025 09:49-0400 Body temperature 98.3 [degF] Dr. Braulio Bosch MD Work Phone: 4(852)875-370640 [place] [address] 04-05-2025 09:49-0400 Respiratory rate 16 /min Dr. Braulio Bosch MD Work Phone: 0(955)362-969540 [place] [address] 03-23-2025 10:00-0400 Body height 165.[address] Braulio Bosch MD Work Phone: 6(223)844-098440 [place] [address] 03-23-2025 10:00-0400 Body mass index (BMI) [Ratio] 36.9 kg/m2 Dr. Braulio Bosch MD Work Phone: 3(683)144-359140 [place] [address] 03-23-2025 10:00-0400 Body weight 100.[address] Braulio Bosch MD Work Phone: 4(277)992-111140 [place] [address] 03-23-2025 10:00-0400 Diastolic blood pressure 72 mm[Hg] Dr. Braulio Bosch MD Work Phone: 3(994)136-625340 [place] [address] 03-23-2025 10:00-0400 Systolic blood pressure 114 mm[Hg] Dr. Braulio Bosch MD Work Phone: 0(694)627-374640 [place] [address] 02-26-2025 15:39-0400 Body height 165.[address] Braulio Bosch MD Work Phone: 6(823)091-586840 [place] [address] 02-26-2025 15:39-0400 Body mass index (BMI) [Ratio] 35.9 kg/m2 Dr. Braulio Bosch MD Work Phone: 6(396)087-725040 [place] [address] 02-26-2025 15:39-0400 Body weight 98.[address] Braulio Bosch MD Work Phone: 9(303)380-087540 [place] [address] 02-26-2025 15:39-0400 Diastolic blood pressure 76 mm[Hg] Dr. Braulio Bosch MD Work Phone: 1(949)783-644940 [place] [address] 02-26-2025 15:39-0400 Systolic blood pressure 117 mm[Hg] Dr. Braulio Bosch MD Work Phone: 8(885)808-687040 [place] [address] 01-29-2025 08:45-0400 Body height 165.[address] Braulio Bosch MD Work Phone: 5(789)227-895040 [place] [address] 01-29-2025 08:45-0400 Body mass index (BMI) [Ratio] 34.1 kg/m2 Dr. Braulio Bosch MD Work Phone: 7(134)617-083140 [place] [address] 01-29-2025 08:45-0400 Body weight 93.[address] Braulio Bosch MD Work Phone: 2(322)674-823940 [place] [address] 01-29-2025 08:45-0400 Diastolic blood pressure 70 mm[Hg] Dr. Braulio Bosch MD Work Phone: 4(721)841-231640 [place] [address] 01-29-2025 08:45-0400 Systolic blood pressure 114 mm[Hg] Dr. Braulio Bosch MD Work Phone: 2(124)209-514540 [place] [address] 01-01-2025 10:14-0400 Body height 165.[address] Braulio Bosch MD Work Phone: 3(141)107-834440 [place] [address] 01-01-2025 10:13-0400 Body mass index (BMI) [Ratio] 33.5 kg/m2 Dr. Braulio Bosch MD Work Phone: 5(689)400-345540 [place] [address] 01-01-2025 10:13-0400 Body weight 91.[address] Braulio Bosch MD Work Phone: 9(057)493-242640 [place] [address] 01-01-2025 10:13-0400 Diastolic blood pressure 69 mm[Hg] Dr. Braulio Bosch MD Work Phone: 3(717)164-177240 [place] [address] 01-01-2025 10:13-0400 Systolic blood pressure 106 mm[Hg] Dr. Braulio Bosch MD Work Phone: 0(824)768-786340 [place] [address] 12-03-2024 08:30-0400 Body height 165.[address] Braulio Bosch MD Work Phone: 1(246)419-711940 [place] [address] 12-03-2024 08:30-0400 Body mass index (BMI) [Ratio] 32.3 kg/m2 Dr. Braulio Bosch MD Work Phone: 5(249)604-474740 [place] [address] 12-03-2024 08:30-0400 Body weight 87.[address] Braulio Bosch MD Work Phone: 3(590)459-279540 [place] [address] 12-03-2024 08:30-0400 Diastolic blood pressure 79 mm[Hg] Dr. Braulio Bosch MD Work Phone: 6(642)691-159440 [place] [address] 12-03-2024 08:30-0400 Systolic blood pressure 119 mm[Hg] Dr. Braulio Bosch MD Work Phone: 8(097)993-698840 [place] [address] 11-16-2024 13:00-0400 Body height 165.[address] Braulio Bosch MD Work Phone: 9(651)805-169440 [place] [address] 11-16-2024 13:00-0400 Body mass index (BMI) [Ratio] 31.5 kg/m2 Dr. Braulio Bosch MD Work Phone: 4(957)855-323640 [place] [address] 11-16-2024 13:00-0400 Body weight 85.[address] Braulio Bosch MD Work Phone: 6(743)181-532140 [place] [address] 11-16-2024 13:00-0400 Diastolic blood pressure 74 mm[Hg] Dr. Braulio Bosch MD Work Phone: 2(443)059-611340 [place] [address] 11-16-2024 13:00-0400 Systolic blood pressure 116 mm[Hg] Dr. Braulio Bosch MD Work Phone: 0(505)724-850240 [place] [address] 11-06-2024 16:17-0400 Body height 165.[address] Braulio Bosch MD Work Phone: 0(053)560-308440 [place] [address] 11-06-2024 16:16-0400 Body mass index (BMI) [Ratio] 31.2 kg/m2 Dr. Braulio Bosch MD Work Phone: 9(340)940-402040 [place] [address] 11-06-2024 16:16-0400 Body weight 85.[address] Braulio Bosch MD Work Phone: 8(537)574-529940 [place] [address] 11-06-2024 16:16-0400 Diastolic blood pressure 80 mm[Hg] Dr. Braulio Bosch MD Work Phone: 9(577)122-675340 [place] [address] 11-06-2024 16:16-0400 Systolic blood pressure 118 mm[Hg] Dr. Braulio Bosch MD Work Phone: 5(604)443-995240 [place] [address] 09-01-2024 13:41-0500 Body mass index (BMI) [Ratio] 29.5 kg/m2 Dr. Braulio Bosch MD Work Phone: [facility] 09-01-2024 13:41-0500 Body weight 80.[address] Braulio Bosch MD Work Phone: [facility] 09-01-2024 13:41-0500 Diastolic blood pressure 78 mm[Hg] Dr. Braulio Bosch MD Work Phone: [facility] 09-01-2024 13:41-0500 Systolic blood pressure 131 mm[Hg] Dr. Braulio Bosch MD Work Phone: [facility] 07-06-2022 20:31-0500 Diastolic blood pressure 76 mm[Hg] Dr. Ariadne Rivers Work Phone: [facility] Work Phone: 07-06-2022 20:31-0500 Heart rate 85 /min Dr. Ariadne Rivers Work Phone: [facility] Work Phone: 07-06-2022 20:31-0500 Respiratory rate 18 /min Dr. Ariadne Rivers Work Phone: [facility] Work Phone: 07-06-2022 20:31-0500 SaO2% (BldA) [Mass fraction] 100 % Dr. Ariadne Rivers Work Phone: [facility] Work Phone: 07-06-2022 20:31-0500 Systolic blood pressure 115 mm[Hg] Dr. Ariadne Rivers Work Phone: [facility] Work Phone: 07-06-2022 15:44-0500 Body height 165.[address] Ariadne Rivers Work Phone: [facility] Work Phone: 07-06-2022 15:44-0500 Body mass index (BMI) [Ratio] 28.3 kg/m2 Dr. Ariadne Rivers Work Phone: [facility] Work Phone: 07-06-2022 15:44-0500 Body temperature 98.9 [degF] Dr. Ariadne Rivers Work Phone: [facility] Work Phone: 07-06-2022 15:44-0500 Body weight 77.[address] Ariadne Rivers Work Phone: [facility] Work Phone: 06-17-2022 00:20-0500 Diastolic blood pressure 74 mm[Hg] Dr. Ariadne Rivers Work Phone: [facility] Work Phone: 06-17-2022 00:20-0500 Heart rate 78 /min Dr. Ariadne Rivers Work Phone: [facility] Work Phone: 06-17-2022 00:20-0500 SaO2% (BldA) [Mass fraction] 100 % Dr. Ariadne Rivers Work Phone: [facility] Work Phone: 06-17-2022 00:20-0500 Systolic blood pressure 130 mm[Hg] Dr. Ariadne Rivers Work Phone: [facility] Work Phone: 06-16-2022 23:03-0500 Body height 165.[address] Ariadne Rivers Work Phone: [facility] Work Phone: 06-16-2022 23:03-0500 Body mass index (BMI) [Ratio] 28.3 kg/m2 Dr. Ariadne Rivers Work Phone: [facility] Work Phone: 06-16-2022 23:03-0500 Body temperature 98.1 [degF] Dr. Ariadne Rivers Work Phone: [facility] Work Phone: 06-16-2022 23:03-0500 Body weight [address] Ariadne Rivers Work Phone: [facility] Work Phone: 06-16-2022 23:03-0500 Respiratory rate 16 /min Dr. Ariadne Rivers Work Phone: [facility] Work Phone: 05-17-2022 08:25-0500 Body mass index (BMI) [Ratio] 28.8 kg/m2 Dr. Ariadne Rivers Work Phone: [facility] Work Phone: 05-17-2022 08:25-0500 Body temperature 98 [degF] Dr. Ariadne Rivers Work Phone: [facility] Work Phone: 05-17-2022 08:25-0500 Body weight 78.[address] Ariadne Rivers Work Phone: [facility] Work Phone: 05-17-2022 08:25-0500 Diastolic blood pressure 77 mm[Hg] Dr. Ariadne Rivers Work Phone: [facility] Work Phone: 05-17-2022 08:25-0500 Heart rate 83 /min Dr. Ariadne Rivers Work Phone: [facility] Work Phone: 05-17-2022 08:25-0500 Respiratory rate 16 /min Dr. Ariadne Rivers Work Phone: [facility] Work Phone: 05-17-2022 08:25-0500 SaO2% (BldA) [Mass fraction] 98 % Dr. Ariadne Rivers Work Phone: [facility] Work Phone: 05-17-2022 08:25-0500 Systolic blood pressure 120 mm[Hg] Dr. Ariadne Rivers Work Phone: [facility] Work Phone: 05-03-2022 08:18-0400 Body height 167.[address] Ariadne Rivers Work Phone: [facility] Work Phone: 05-03-2022 08:18-0400 Body mass index (BMI) [Ratio] 27.9 kg/m2 Dr. Ariadne Rivers Work Phone: [facility] Work Phone: 05-03-2022 08:18-0400 Body weight 78.[address] Ariadne Rivers Work Phone: [facility] Work Phone: 05-03-2022 08:18-0400 Diastolic blood pressure 60 mm[Hg] Dr. Ariadne Rivers Work Phone: [facility] Work Phone: 05-03-2022 08:18-0400 Systolic blood pressure 102 mm[Hg] Dr. Ariadne Rivers Work Phone: [facility] Work Phone: Encounters Encounter Date Encounter Type Care Provider Facility Start: 05-21-2025 ambulatory [facility] lity:[facility] Start: 05-21-2025 ambulatory [facility] Department[facility]ena Danitza Faci lity:[facility] Start: 05-07-2025 End: 05-07-2025 ambulatory [facility] Facility:[facility] Start: 05-01-2025 End: 05-02-2025 [facility] Start: 04-23-2025 End: 04-23-[address] Dulce Villar MD -[facility] Work Phone: Start: 04-23-2025 End: 04-23-[address] Braulio Bosch MD Work Phone: -[facility] Start: 04-08-2025 End: 04-08-[address] Dulce Villar MD -[facility] Work Phone: Start: 04-08-2025 End: 04-08-[address] Braulio Bosch MD Work Phone: -[facility] Start: 04-08-2025 End: 04-08-2025 ambulatory Braulio Bosch Facility:[facility] Start: 04-05-2025 End: 04-05-2025 Emergency department patient visit Dr. Braulio Bosch MD Work Phone: -Emergency Department Work Phone: Start: 04-05-2025 ambulatory Braulio Bosch Faci lity:[facility] Start: 04-05-2025 Non-patient / Non-visit Mary Madrigal CNM -[facility] Start: 04-05-2025 End: 04-05-[address] Braulio Bos[facility] Phone: [facility] Start: 04-05-2025 End: 04-05-2025 Patient encounter procedure Mary Madrigal CNM -[facility] Work Phone: Start: 03-26-2025 End: 03-26-[address] Braulio Bosch MD Work Phone: -Laboratory Start: 03-26-2025 End: 03-26-2025 Patient encounter procedure Bertha May PRODUCTION OPERATOR-C -Laboratory Work Phone: Start: 03-26-2025 End: 03-26-2025 ambulatory Braulio Bosch Facility:[facility] Start: 03-23-2025 End: 03-23-2025 Patient encounter procedure Bertha May NP-C -[facility] Work Phone: Start: 03-23-2025 End: 03-23-[address] Braulio Bosch MD Work Phone: -[facility] Start: 03-23-2025 End: 03-23-2025 ambulatory Braulio Bosch Facility:[facility] Start: 02-26-2025 End: 02-26-[address] Dulce Villar MD -[facility] Work Phone: Start: 02-26-2025 End: 02-26-[address] Braulio Bosch MD Work Phone: [facility] Start: 02-15-2025 End: 02-15-2025 ambulatory NO PRIMARY CARE [facility] Start: 01-29-2025 End: 01-29-[address] Braulio Bosch MD Work Phone: -Laboratory Start: 01-29-2025 End: 01-29-[address] Dulce Villar MD -Laboratory Work Phone: Start: 01-29-2025 End: 01-29-2025 Patient encounter procedure Mary Madrigal CNM -[facility] Work Phone: Start: 01-29-2025 End: 01-29-[address] Braulio Bosch MD Work Phone: [facility] Start: 01-29-2025 End: 01-29-2025 ambulatory Dulce Villar Facility:[facility] Start: 01-25-2025 End: 01-25-2025 ambulatory NO PRIMARY CARE [facility] Start: 01-01-2025 End: 01-01-[address] Ashlyn Lagos DO -[facility] Work Phone: Start: 01-01-2025 End: 01-01-[address] Braulio Bosch MD Work Phone: [facility] Start: 12-03-2024 End: 12-03-[address] Braulio Bosch MD Work Phone: [facility] Work Phone: Start: 12-03-2024 End: 12-03-[address] Dulce Villar MD -Laboratory Specimen Work Phone: Start: 12-03-2024 End: 12-03-[address] Dulce Villar MD -[facility] Work Phone: Start: 12-03-2024 End: 12-03-[address] Braulio Bosch MD Work Phone: [facility] Work Phone: Start: 12-03-2024 End: 12-03-2024 ambulatory Dulce Villar Facility:[facility] Start: 11-16-2024 End: 11-16-[address] Dulce Villar MD -[facility] Work Phone: Start: 11-16-2024 End: 11-16-[address] Braulio Bosch MD Work Phone: [facility] Work Phone: Start: 11-16-2024 End: 11-16-2024 ambulatory Dulce Villar Facility:[facility] Start: 11-13-2024 ambulatory Dulce Villar Faci lity:[facility] Start: 11-06-2024 End: 11-06-[address] Braulio Bosch MD Work Phone: [facility] Work Phone: Start: 11-06-2024 End: 11-06-[address] Dulce Villar MD -Laboratory, Specimen Work Phone: Start: 11-06-2024 End: 11-06-[address] Dulce Villar MD -[facility] Work Phone: Start: 11-06-2024 End: 11-06-2024 ambulatory Dulce Villar Facility:[facility] Start: 11-06-2024 End: 11-06-2024 ambulatory Dulce Villar Facility:[facility] Start: 10-23-2024 Non-patient / Non-visit Stacy Barron RN -[facility] Work Phone: Start: 10-23-2024 ambulatory Braulio Stubbsjackie Jackie lity:[facility] Start: 09-01-2024 End: 09-01-[address] Dulce Villar MD -[facility] Work Phone: Start: 09-01-2024 End: 09-01-2024 ambulatory Dulce Newberryketan Facility:[facility] Start: 07-20-2024 End: 07-20-[address] Dulce Villar MD -Ultrasound, [facility] Work Phone: Start: 07-20-2024 End: 07-20-2024 ambulatory Dulcediane Newberryktean Facility:[facility] Start: 07-03-2024 End: 07-03-2024 ambulatory Braulio Bosch JANE Facility:[facility] Start: 07-03-2024 End: 07-03-2024 ambulatory Dulce Villar Facility:[facility] Start: 06-26-2024 ambulatory Braulio LARA Facility:[facility] Start: 04-26-2023 End: 04-26-2023 ambulatory [facility] Work Phone: Start: 04-26-2023 End: 04-26-2023 Patient encounter procedure [facility]-Laboratory Work Phone: Start: 07-06-2022 End: 07-06-2022 Emergency department patient visit Dr. Ariadne Rivers Work Phone: [facility]-Emergency Department Start: 07-03-2022 End: 07-03-[address] Ariadne Rivers Work Phone: [facility] Work Phone: Start: 07-03-2022 End: 07-03-[address] Ariadne Rivers Work Phone: [facility] Start: 06-16-2022 End: 06-17-2022 Emergency department patient visit Dr. Ariadne Rivers Work Phone: [facility]-Emergency Department Start: 05-17-2022 End: 05-17-[address] Ariadne Rivers Work Phone: [facility] Start: 05-07-2022 End: 05-07-[address] Ariadne Rivers Work Phone: [facility] Work Phone: Start: 05-07-2022 End: 05-07-[address] Ariadne Rivers Work Phone: [facility], [facility] Start: 05-03-2022 End: 05-03-[address] Ariadne Rivers Work Phone: [facility] Work Phone: Start: 05-03-2022 End: 05-03-[address] Ariadne Rivers Work Phone: [facility] Procedures Date Procedure Procedure Detail Performing [...] or Pulmonary Embolism (PE)CRITICAL VALUE CALLED TO [id number]/29/25 India Orozco.RESULTS READ BACK BY SAME. Start: [...] HCV Quant by PCR testing - HCVPCR #[id number] Non Reactive: < 0.8 Equivocal: >/= 0.8 [...] 07-06-2022 MRI of brain with contrast Dr. Ariande Rivers Work Phone: Start: 07-03-2022 Plain chest X-ray Dr. Tammi Rivers Work Phone: Start: 06-16-2022 Plain chest X-ray Dr. Tammi Rivers Work Phone: Start: 05-07-2022 US scan of thyroid Dr. Ariadne Rivers Work Phone: Plan of Treatment Date Care Activity Detail Author Start: 05-02-2025 Nonstress test [facility] Start: 05-02-2025 Obstetric monitoring [facility] Start: 05-02-2025 Vital signs measurements [facility] Start: 05-02-2025 [facility] Start: 05-02-2025 Non-patient / Non-visit Non-patient / Non-visit -[facility] Start: 05-02-2025 Patient discharge [facility] Start: 05-01-2025 End: 05-02-2025 Patient encounter procedure Anxiety and depression -[facility] Work Phone: Start: 04-08-2025 CBC W Auto Differential panel - Blood [facility] Start: 04-08-2025 Comprehensive metabolic 2000 panel - Serum or Plasma [facility] Start: 04-05-2025 [facility] Start: 04-05-2025 Nonstress test [facility] Start: 04-05-2025 Obstetric monitoring [facility] Start: 04-05-2025 Vital signs measurements [facility] Start: 04-05-2025 End: 04-05-2025 [facility] Start: 04-05-2025 Catheterization of vein [facility] Start: 03-23-2025 CBC W Auto Differential panel - Blood [facility] Start: 03-23-2025 Measurement of glucose 2 hours after glucose challenge for glucose tolerance test [facility] Start: 03-23-2025 Serologic test for syphilis [facility] Start: 03-23-2025 [facility] Start: 07-03-2022 [facility] Work Phone: Alanine aminotransfe rase [Enzymatic activity/volume] in Serum or Plasma [facility] Albumin [Mass/volume ] in Serum or Plasma [facility] Alkaline phosphatase [Enzymatic activity/volume] in Serum or Plasma [facility] Anion gap in Serum or Plasma [facility] Bilirubin, total measurement [facility] BUN/Creatinine ratio [facility] Calcium [Mass/volume ] in Serum or Plasma [facility] Carbon dioxide, tota l [Moles/volume] in Central venous blood [facility] CBC W Auto Different ial panel - Blood [facility] Creatinine [Mass/vol ume] in Serum or Plasma [facility] Erythrocyte mean cor puscular volume determination [facility] Erythrocyte mean cor puscular volume determination [facility] Glucose [Mass/volume ] in Serum or Plasma [facility] Hematocrit [Volume F raction] of Blood [facility] Hematocrit [Volume F raction] of Blood [facility] Hemoglobin [Mass/vol ume] in Blood [facility] Hemoglobin [Mass/vol ume] in Blood [facility] Hepatitis B virus bran rface Ag [Presence] in Serum [facility] Leukocytes [#/volume ] in Blood [facility] Leukocytes [#/volume ] in Blood [facility] Mean corpuscular hem oglobin concentration determination [facility] Mean corpuscular hem oglobin concentration determination [facility] Mean corpuscular hem oglobin determination [facility] Mean corpuscular hem oglobin determination [facility] Measurement of gluco se 2 hours after glucose challenge for glucose tolerance test [facility] Measurement of renal function [facility] Neutrophil count [facility] Neutrophil count [facility] Neutrophil percent differential count [facility] Neutrophil percent differential count [facility] Nuclear Ab [Titer] i n Serum by Immunofluorescence [facility] Work Phone: Patient Education [facility] Work Phone: Patient referral [facility] Work Phone: Platelets [#/volume] in Blood [facility] Platelets [#/volume] in Blood [facility] Potassium measurement [facility] Protein/Creatinine [ Ratio] in Urine [facility] Red blood cell count [facility] Red blood cell count [facility] Red cell distributio n width determination [facility] Red cell distributio n width determination [facility] Serologic test for syphilis [facility] Serum chloride measurement [facility] Sodium measurement [facility] Total protein measurement [facility] Ultrasound scan for growth [facility] Urea nitrogen [Mass/ volume] in Serum or Plasma [facility] Immunizations Immunization Date Immunization Notes Care Provider Modesta dawn 04-08-2025 tetanus toxoid, reduced diphtheria toxoid, and acellular pertussis vaccine, adsorbed Dr. Braulio Bosch MD Work Phone: [facility] Payers Date Payer Category Payer Self-pay [id number] 2024 Unknown [id number] 2015 Private Health Insurance [facility] [id number] 1991 Unknown [id number] 2.16. [id number] 1991 Unknown [id number] 2.16. 840.1.828416.3.579.2.479 Unknown [id number] 2.16.8 40.1.883249.3.579.2.462 Unknown [id number] 2.16.8 40.1.472651.3.579.2.462 Unknown [id number] 2.16.8 40.1.694141.3.579.2.462 Unknown [id number] 2.16.8 40.1.284176.3.579.2.462 Unknown [id number] 2.16.8 40.1.102886.3.579.2.462 Unknown [id number] 2.16.8 40.1.776819.3.579.2.462 Unknown [id number] 2.16.8 40.1.475018.3.579.2.462 Unknown [id number] 2.16.8 40.1.310782.3.579.2.462 Unknown [id number] 2.16.8 40.1.885318.3.579.2.462 Unknown [id number] 2.16.8 40.1.158711.3.579.2.462 Unknown [id number] 2.16.8 40.1.673243.3.579.2.462 Unknown [id number] 2.16.8 40.1.790324.3.579.2.462 Unknown [id number] 2.16.8 40.1.242297.3.579.2.462 Unknown [id number] 2.16.8 40.1.687086.3.579.2.462 Unknown [id number] 2.16.8 40.1.741481.3.579.2.462 Unknown [id number] 2.16.8 40.1.344088.3.579.2.462 Unknown [id number] 2.16.8 40.1.496053.3.579.2.462 Unknown [id number] 2.16.8 40.1.321545.3.579.2.462 Unknown [id number] 2.16.8 40.1.123978.3.579.2.462 Unknown [id number] 2.16.8 40.1.962015.3.579.2.462 Unknown [id number] 2.16.8 40.1.525483.3.579.2.462 Unknown [id number] 2.16.8 40.1.075734.3.579.2.462 Unknown [id number] 2.16.8 40.1.298651.3.579.2.462 Unknown [id number] 2.16.8 40.1.950116.3.579.2.462 Unknown [id number] 2.16.8 40.1.950063.3.579.2.462 Unknown [id number] 2.16.8 40.1.146323.3.579.2.462 Unknown [id number] 2.16.8 40.1.018940.3.579.2.462 Unknown [id number] 2.16.8 40.1.185844.3.579.2.462 Unknown [id number] 2.16.8 40.1.888635.3.579.2.462 Unknown [id number] 2.16.8 40.1.858131.3.579.2.462 Unknown [id number] 2.16.8 40.1.540523.3.579.2.462 Social History Date Type Detail Facility Start: 05-03-2022 End: 07-06-2022 Tobacco smoking status NHIS Unknown if ever smoked [facility] Start: 06-12-2019 None [facility] Start: 1990 Sex Assigned At Female [facility] Start: 10-22-2024 End: 04-05-2025 Tobacco smoking status NHIS Never smoked tobacco (finding) [facility] Sex Female [facility] Goals Date Patient Goal Desired Activity /State Mental Status Date Assessment Result Facility 04-05-2025 Cognitive function Voice/Name [facility] Work Phone: 07-06-2022 Cognitive function Level Of Cons ciousness Awake;Alert;Appropriate;Follow s Commands [facility] Work Phone: Clinical Notes 09-01-2024 to 04-23-2025 Note Date & Type Note Facility 04-23-2025 Progress note [facility] 04-23-2025 Progress note Note Date/Time April 23, 2025 4:03pm [facility] [address], [address] [place] [address] OFFICE VISIT Date of Service: 04/23/25 MR#: [id number] Acct: [id number] Name: SHIRA ARBOLEDA Rep #: [id number] : 1990 Provider: Dr. 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 Date Name GA/Weeks Outcome Route Bth Weight Infant Gen Labor Lgth Anesthesia Del Locatn Provider RYAN 03/21/18 Justin 40 live - full term 9lbs 7oz Male epi dural [facility] 06/12/19 Thakur-Goes by Tevin 40 live - full term 8l bs 8oz Male epidural [facility] Dr. Olena Kilpatrick 01/13/21 Isamar 40 live - full term 7lbs 6oz Female ep idural [facility] Dr. Olena Kilpatrick 07/10/24 elective Delivery Date: [...] vagi nal bleeding, or cramping. Going to [facility] on a work trip soon. promethazine given for the flight. she knows not to continue JV- no lof, vaginal bleeding , or cramping. Going to [facility] on a work trip soon. promethazine [...] Cosigner Signature: Date (if applicable) CC: ~ [facility] Work Phone: 1(256) 157-323410-02-2025 Progress [facility] [address], [address] [place] [address] OFFICE VISIT Date of Service: 04/08/25 MR#: [id number] Acct: [id number] Name: SHIRA ARBOLEDA Rep #: [id number] : 1990 Provider: Dr. Feng Villar MD Age/Sex: 34/F [place] [facility] Status: Signed with Addenda ADDENDUM by Bertha Hravey on 04/08/25 at 1351 Office Procedure Documentation entered by Bertha Harvey 04/08/25 13:51: Immunizations Boostrix Tdap 2.5 Lf unit-8 mcg-5 Lf/0.5 mL intramuscular syringe Performing Provider: Dulce Villar MD Performing Location: 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 Date Name GA/Weeks Outcome Route Bth Weight Infant Gen Labor Lgth Anesthesia Del Locatn Provider RYAN 03/21/18 Justin 40 live - full term 9lbs 7oz Male epi dural [facility] 06/12/19 Thakur-Goes by Tevin 40 live - full term 8l bs 8oz Male epidural [facility] Dr. Olena Kilpatrick 01/13/21 Isamar 40 live - full term 7lbs 6oz Female ep idural [facility] Dr. Olena Kilpatrick 07/10/24 elective Delivery Date: [...] vagi nal bleeding, or cramping. Going to [facility] on a work trip soon. promethazine given for the flight. she knows not to continue JV- no lof, vaginal bleeding , or cramping. Going to [facility] on a work trip soon. promethazine [...] yamilet CHAUHAN> Date _ Dulce Villar MD [facility] Signature: Date (if applicable) CC: ~ [facility]09-29-2025 Discharge summary [facility] Medical Records Department [address] [place] [address] Emergency Department Summary 04/05/25 MR#: [id number] Acct: [id number] Name: SHIRA ARBOLEDA Rep #:[id number] : 1990 34 From: Alejandro Gonzalez MD [...] of dizziness and says she was having [place] Amato contractions. Atypical chest pain. 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 Constitutional [...] nontender uterus. Moving all 4 extremities. 5-5 cad drafter strength. Equal symmetrical radial pulses. Calves are [...] exam. She is 30 weeks she has [place] Amato contractions a [place] gave her atypical chest pain. She has [...] % (Auto) 67.1 Lymph % (Auto) 22.7 [place] % (Auto) 6.3 Eos % (Auto) 0.8 [...] evidence of acute cardiopulmonary disease. Reading Location: [place] [address] Chest CTA 04/05/25 12:48 IMPRESSION: There is no evidence of pulmonary embolus within the pulmonary artery or outflowtrack. Unremarkable exam. Reading Location: [place] [address] Chest x-ray, 2 views, AP and lateral, [...] rhythm rate 96 no acute signs of IN or ischemia. Inverted T waves in leads I, II and aVL. Prior EKG tracings: available for review Prior: Changed Discharge Plan Triage Chief Complaint: Dizziness ED Provider: Alejandro Gonzalez Dx/Rx/DC Orders Clinical Impression: Chest pain, Anxiety, Third trimester Instructions: ED Anxiety Reaction Prescriptions: No Action fluoxetine 40 mg capsule 40 mg PO DAILY Qty: 30 12RF PNV-Shreveport 28-1-300 mg capsule PO hydroxyzine HCl 25 mg tablet 25 mg PO TID PRN (Reason: anxiety) Qty: 120 5RF Rx Instructions: 1-2 po q 6 hours PRN Primary Care Provider: Braulio Bosch Referrals: Braulio Bosch MD [Primary Care Provider, Family Practice] - As Needed Dulce Villra MD [Med Staff - Active Staff, Obstetrics-Gynecology (OBGYN)]- Keep Qi appointment Activity Restrictions/Additional Instructions: Follow-up with your OB as needed and scheduled. Continue your anxiety medications. Your labs and imaging today all look good. Print Language: Solomon Islander Disposition Disposition: Home, Self Care What to do if you have Problems For any increased pain, shortness of breath, bleeding, nausea or vomiting, chestpain, or any unexpected problems, contact your Primary Care Provider. Call [facility] ([phone]) or report tothe closest Emergency Room. Call 911 if necessary. 04/05/25 1447 Cosigner Signature (if applicable): CC: Dr. Braulio Boshc MD ~ Signed [facility]09-29-2025 Radiology Diagnostic study note [facility] Imaging Services [address] [place] [address] CTA Chest W/WO Contrast MR#: [id number] Acct: [id number] Name: SHIRA ARBOLEDA Rep #: [id number] : 1990 F 34 From: Michelle Purvis MD PCP: Dr. Braulio Bosch MD Status: REG ER Study:CTA Chest W/WO Contrast Date of Exam: 04/05/25 Exam# [id number] Ordering Dr: Cal Gonzalez MD PROCEDURE: CTA [...] artery or outflowtrack. Unremarkable exam. Reading Location: [place] [address] CC: Dr. Braulio Bosch MD; Dr. 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 Constitutional [...] nontender uterus. Moving all 4 extremities. 5-5 cad drafter strength. Equal symmetrical radial pulses. Calves are [...] exam. She is 30 weeks she has [place] Amato contractions a Priyanka gave her atypical [...] % (Auto) 67.1 Lymph % (Auto) 22.7 [place] % (Auto) 6.3 Eos % (Auto) 0.8 [...] evidence of acute cardiopulmonary disease. Reading Location: [place] [address] Chest CTA 04/05/25 12:48 IMPRESSION: There is no evidence of pulmonary embolus within the pulmonary artery or outflowtrack. Unremarkable exam. Reading Location: [place] [address] Chest x-ray, 2 views, AP and lateral, [...] rhythm rate 96 no acute signs of IN or ischemia. Inverted T waves in leads I, II and aVL. Prior EKG tracings: available for review Prior: Changed Discharge Plan Triage Chief Complaint: Dizziness ED Provider: Alejandro Gonzalez Dx/Rx/DC Orders Clinical Impression: Chest pain, Anxiety, Third trimester Instructions: ED Anxiety Reaction Prescriptions: No Action fluoxetine 40 mg capsule 40 mg PO DAILY Qty: 30 12RF PNV-[place] 28-1-300 mg capsule PO hydroxyzine HCl 25 [...] imaging today all look good. Print Language: [place] Islander Disposition Disposition: Home, Self Care What to do if you have Problems For any increased pain, shortness of breath, bleeding, nausea or vomiting, chestpain, or any unexpected problems, contact your Primary Care Provider. Call [facility] ([phone]) or report to the closest Emergency Room. Call 911 if necessary. 04/05/25 1447 <Electronically signed by Alejandro Gonzalez MD> Cosigner Signature (if applicable): CC: Dr. Braulio Bosch MD ~ Signed [facility] Work Phone: 1(840) 451-970509-29-2025 Radiology Diagnostic study note [facility] Imaging Services [address] [place] [address] Chest PA and Lateral MR#: [id number] Acct: [id number] Name: SHIRA ARBOLEDA Rep #: [id number] : 1990 F 34 From: Michelle Purvis MD PCP: Dr. Braulio Bosch MD Status: REG ER Study:Chest PA and Lateral Date of Exam: 04/05/25 Exam# [id number] Ordering Dr: Cal Gonzalez MD PROCEDURE: CHEST PA AND LATERAL 04/05/2025 REASON FOR EXAM: CHEST PAIN TECHNIQUE: Procedure Code: RADCXR Modality: DX Procedure: CHEST PA AND LATERAL COMPARISON: 07/03/2022 FINDINGS: Cardiomediastinal silhouette pulmonary vasculature and bony thorax are within normal limits. No focal infiltrates or effusion. RAD/Chest PA and Lateral IMPRESSION: No radiographic evidence of acute cardiopulmonary disease. Reading Location: [place] [address] CC: Dr. Braulio Bosch MD; Dr. Alejandro Gonzalez MD ~ Hearing Instrument Specialist: Signed [facility]09-29-2025 Progress note [facility] Medical Records Department [address] [place] [address] OB Triage Progress Note 04/05/25 1046 MR#: [id number] Acct: [id number] Name: SHIRA ARBOLEDA Rep #:[id number] : 1990 34 From: Mary Madrigal CNM PCP: Dr. Braulio Bosch MD Status :DEP CLI Y DOS: Location: WPOUT Progress Notes Progress Note: Patient presents for triage evaluation secondary to shortness of breath and blurred vision. FHT: 135 Moderate variability reactive no decelerations category I tracing [place]: irregular mild Contractions Assessment and plan: pre e labs and normal BP, Reactive NST, reassuring maternaland status patient to ER for evaluation of shortness of breath. See problem list details for additional plan information. Charges/Coding Multi Select Codes Urinary/Genital Urinary/Genital CPT Codes: 56883-35 non-stress test Interp Assessment & Plan (1) [...] Madrigal; Dr. Braulio Bosch MD ~ Signed [facility]07-25-2025 Evaluation note* Diagnosis Onset Date Resolution Status [...] Supervision of high-risk acute May 01 11:48pm [facility] Work Phone: 1(560) 791-561107-25-2025 Progress [facility] [address] [place] [address], [address] [place] [id number] OFFICE VISIT Date of Service: 01/29/25 MR#: [id number] Acct: [id number] Name: SHIRA ARBOLEDA Rep #: [id number] : 1990 Provider: SMITA Madrigal Age/Sex: 34/F [place] [facility] Status: Signed Intake Vital Signs 11/16/24 13:00 01/01/25 10:14 01/29/25 08:45 Height 5 ft 5 in 5 ft 5 in 5 ft 5 in Weight: 205 lb 4 oz BMI 34.1 BP 114/70 Intake Visit Reasons: 20 wk ob Chief Complaint: 20 Week OB Clinical Technologist Required: No Is patient in pain?: No [...] mg-folate no.1 1 mg-dha 300 mg capsule (PNV-[place]) hydroxyzine HCl 25 mg tablet 25 mg [...] current occupational status: employed 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 Date Name GA/Weeks Outcome Route Bth Weight Infant Gen Labor Lgth Anesthesia Del Locatn Provider FOB 03/21/18 Justin 40 live - full term 9lbs 7oz Male epi dural [facility] Finesse 06/12/19 Thakur-Goes by Tevin 40 live - full term 8l bs 8oz Male epidural [facility] Dr. Olena Kilpatrick 01/13/21 Isamar 40 live - full term 7lbs 6oz Female ep idural [facility] Dr. Olena Kilpatrick 07/10/24 elective Delivery Date: [...] vagi nal bleeding, or cramping. Going to [employer] on a work trip soon. promethazine given for the flight. she knows not to continue JV- no lof, vaginal bleeding , or cramping. Going to [employer] on a work trip soon. promethazine given [...] Cosigner Signature: Date (if applicable) CC: ~ [facility]06-27-2025 Evaluation note* Diagnosis Onset Date Resolution [...] of high-risk acute April 05, 2025 9:32am [facility] Work Phone: 1(336) 624-791706-27-2025 Evaluation note* Diagnosis Onset Date Resolution Status [...] Supervision of high-risk acute April 08 12:46pm [facility] Work Phone: 1([phone]) 724-934005-29-2025 Evaluation note* Diagnosis Onset Date Resolution Status [...] of high-risk acute March 23, 2025 9:56am [facility] Work Phone: 1(388) 410-944005-02-2025 Evaluation note* Diagnosis Onset Date Resolution Status [...] of high-risk acute January 01, 2025 10:11am [facility] Work Phone: 1([phone]) 777-230705-02-2025 Evaluation note* Diagnosis Onset Date Resolution Status [...] of high-risk acute January 29, 2025 8:40am [facility] Work Phone: 1(159) 387-212005-02-2025 Evaluation note* Diagnosis Onset Date Resolution Status [...] Supervision of high-risk acute February 26 3:35pm [facility] Work Phone: 1([phone]) 481-412502-25-2025 Evaluation note* Diagnosis Onset Date Resolution Status Admit Date Induced noneactive September 01, 2024 1:36pm FH: cleft lip and palate acute November 06, 2024 4:13pm History of marijuana use acute November 06, 2024 4:13pm Hx of depression, currently acute November 06, 2024 4:13pm acute November 06, 2024 4:13pm Supervision of high-risk acute November 06, 2024 4: 13pm [facility] Work Phone: [phone] Evaluation note* Diagnosis Onset Date Resolution Status [...] high-risk acute November 16, 2024 1 2:56pm [facility] Work Phone: [phone] Evaluation note* Diagnosis Onset Date Resolution Status [...] high-risk acute December 03, 2024 8 :27am [facility] Work Phone: [phone] Evaluation note* Diagnosis Onset Date Resolution Status [...] high-risk acute December 03, 2024 8 :27am [facility] Work Phone: Evaluation note* Diagnosis Onset Date Resolution Status Family history of ovarian cancer acute Encounter for routine gynecological examination noneactive [facility] Work Phone: Evaluation note* Diagnosis Onset Date Resolution Status Family history of ovarian cancer acute Encounter for routine gynecological examination noneactive Thyromegaly acute [facility] Work Phone: Evaluation noteNo assessment information available [facility] Work Phone: Hospital Discharge instructions Additional Instructions Plenty of fluids and rest. Cbwn-cll-esonqdl cough syrup. Follow-up with your doctor if not improving. Your exam and chest x-ray are normal.[facility] Work Phone: Hospital Discharge instructionsAdditional Instructions Pt transported via wheelchair to ED [facility]: Hospital Discharge instructionsAdditional Instructions Follow-up with your OB as needed and scheduled. Continue your anxiety medications. Your labs and imaging today all look good.[facility] Work Phone: Progress note Author Mary Madrigal [facility] Note Date/Time January 29, 2025 9:02 am [facility] [address] [place] [address], [address] [place] [address] OFFICE VISIT Date of Service: 01/29/25 MR#: [id number] Acct: [id number] Name: SHIRA ARBOLEDA Rep #: [id number] : 1990 Provider: SMITA Madrigal Age/Sex: 34/F Location: [facility] Status: Signed Intake Vital Signs 11/16/24 13:00 01/01/25 10:14 01/29/25 08:45 Height 5 ft 5 in 5 ft 5 in 5 ft 5 in Weight: 205 lb 4 oz BMI 34.1 BP 114/70 Intake Visit Reasons: 20 wk ob Chief Complaint: 20 Week OB Clinical Technologist Required: No Is patient in pain?: No [...] mg-folate no.1 1 mg-dha 300 mg capsule (PNV-[place]reveport) hydroxyzine HCl 25 mg tablet 25 mg [...] employed 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 Date Name GA/Weeks Outcome Route Bth Weight Gen Labor Lgth Anesthesia Del Locatn Provider FOB 03/21/18 Justin 40 live - full term 9lbs 7oz Male epi dural [facility] Finesse 06/12/19 Thakur-Goes by Tevin 40 live - full term 8l bs 8oz Male epidural [facility] Dr. Olena Kilpatrick 01/13/21 Isamar 40 live - full term 7lbs 6oz Female ep idural [facility] Dr. Olena Kilpatrick 07/10/24 elective Delivery Date: [...] vagi nal bleeding, or cramping. Going to [facility] on a work trip soon. promethazine given for the flight. she knows not to continue JV- no lof, vaginal bleeding , or cramping. Going to [facility] on a work trip soon. promethazine [...] Cosigner Signature: Date (if applicable) CC: ~ [facility] Work Phone: Progress note Author Mary Madrigal [facility] Note Date/Time April 05, 2025 11:15am [facility] Medical Records Department [address] [facility] [place] [address] OB Triage Progress Note 04/05/25 1046 MR#: [id number] Acct: [id number] Name: SHIRA ARBOLEDA Rep #:[id number] : 1990 34 From: Mary Madrigal CNM PCP: Dr. Braulio Bosch MD Status :DEP ANNAMARIE Simon DOS: Location: WPOUT Progress Notes Progress Note: Patient presents for triage evaluation secondary to shortness of breath and blurred vision. FHT: 135 Moderate variability reactive no decelerations category I tracing [place]: irregular mild Contractions Assessment and plan: pre e labs and normal BP, Reactive NST, reassuring maternaland status patient to ER for evaluation of shortness of breath. See problem list details for additional plan information. Charges/Coding Multi Select Codes Urinary/Genital Urinary/Genital CPT Codes: 59324-99 non-stress test Interp Assessment & Plan (1) [...] Madrigal; Dr. Braulio Bosch MD ~ Signed [facility] Work Phone: Progress note Author Dulce Villar [facility] Note Date/Time April 08, 2025 1: 34pm [facility], [address] [place] [address] OFFICE VISIT Date of Service: 04/08/25 MR#: [id number] Acct: [id number] Name: SHIRA ARBOLEDA Rep #: [id number] : 1990 Provider: Dr. Feng Villar MD Age/Sex: 34/F Location[place] [facility] Status: Signed with Addenda ADDENDUM by Bertha Harvey on 04/08/25 at 1351 Office Procedure Documentation entered by Bertha Harvey 04/08/25 13:51: Immunizations Boostrix Tdap 2.5 Lf unit-8 mcg-5 Lf/0.5 mL intramuscular syringe Performing Provider: Dulce Villar MD Performing Location: [facility] Administered by: Bertha Harvey on 04/08/25 13:50 Dose Route Admin Location Dispensed Lot Number Expiration Date Pack age NDC NDC Heat [employer] Frost Insulator Helper 0.5 mL IM Right Deltoid 0.5 mL [id number] 03/07/27 53380-961-93 [id number] [employer]- PASTEUR VIS Given Date VIS Provided VIS [...] H Intake Visit Reasons: 30 WK OB Clinical Technologist Required: No Is patient in pain?: No [...] mg-folate no.1 1 mg-dha 300 mg capsule (PNV-[place]) hydroxyzine HCl 25 mg tablet 25 mg [...] current occupational status: employed 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 Date Name GA/Weeks Outcome Route Bth Weight Infant Gen Labor Lgth Anesthesia Del Locatn Provider FOB 03/21/18 Justin 40 live - full term 9lbs 7oz Male epi dural [facility] Finesse 06/12/19 Thakur-Goes by Tevin 40 live - full term 8l bs 8oz Male epidural [facility] Dr. Olena Kilpatrick 01/13/21 Isamar 40 live - full term 7lbs 6oz Female ep idural [facility] Dr. Olena Kilpatrick 07/10/24 elective Delivery Date: [...] vagi nal bleeding, or cramping. Going to [facility] on a work trip soon. promethazine given for the flight. she knows not to continue JV- no lof, vaginal bleeding , or cramping. Going to [facility] on a work trip soon. promethazine [...] Decrease spasm Improve motion of sacrum 04/08/25 8144 <Electronically signed by Dulce woodard MD> Date _ Dulce Patterson Signature: Date (if applicable) CC: ~ [facility] Work Phone: Reason for referral (narrative)No reason for referral information availableW[facility] Work Phone: Summary Purpose Family History No [...] January 13, 2021 7 :33am Power of Spinning Operator No January 13, 2021 7:33am Advance Directive Response Recorded Date/ Time Living Will No January 13, 2021 6 :33am Power of Spinning Operator No January 13, 2021 6:33am Advance Directive Response Recorded Date/ Time Living Will No June 16 11:16pm Power of Spinning Operator No June 16, 2022 11:16pm Advance Directive Response Recorded Date/ Time Living Will No July 06 4:37pm Power of Spinning Operator No July 06, 2022 4:37pm Advance Directive Response Recorded Date/ Time Living Will No July 06 5:37pm Power of Spinning Operator No July 06, 2022 5:37pm Advance Directive Response Recorded Date/ Time Do you have a [facility] Power of Spinning Operator? 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) THYROMEGALY BILATERAL THYROID NODULES COUGH EORDER- LABS [...] March 23, 2025 9:56am Supervision of high-risk [facility] 2024 9:56am Anxiety and depression April 05, 2 025 9:32am Blurred vision April 05, 2025 9:32am FH: cleft lip and palate April 05, 2025 9:32am GBS (group B streptococcus) UTI complica ting April 05, 2025 9:32am History of marijuana use April 05, 2025 9:32am Hx of depression, currently p regnant April 05, 2025 9:32am April 05, 2025 9:32am Supervision of high-risk [facility] 2024 9:32am Chief Complaint Admit Date [...] March 23, 2025 9:56am Supervision of high-risk [facility] 2024 9:56am Anxiety and depression April 05 025 9:32am FH: cleft lip and palate April 05, 2025 9:32am GBS (group B streptococcus) UTI complica ting April 05, 2025 9:32am History of marijuana use April 05, 2025 9:32am Hx of depression, currently p regnant April 05, 2025 9:32am April 05, 2025 9:32am Supervision of high-risk [facility] 2024 9:32am Blurred vision April 05, [...] section and content) DATE CREATED AUTHOR 12/10/2018 [facility] DATE CREATED AUTHOR AUTHOR'S ORGANIZ ATION 02/16/2025 [facility] DATE CREATED AUTHOR AUTHOR'S ORGANIZ ATION 05/15/2025 [facility] Care Teams (unrecognized sec tion and [...] 2024 End: July 20, 2024 Dr. Dulce Vilalr MD Attending Provider Active Start: July 20, [...] End: March 23, 2025 Bertha May NP, PRODUCTION OPERATOR-C Attending Provider Active Start: March 23, 2025 [...] 2025 End: March 23, 2025 Bertha May PRODUCTION OPERATOR, PRODUCTION OPERATOR-C Attending physician Active Start: March 23, 2025 [...] Status: Inactive Member Role/Relationship Status Dates Dr. Brualio Bosch MD Primary care physician Act dayana Start: March 26, 2025 End: March 26, 2025 Bertha May PRODUCTION OPERATOR, PRODUCTION OPERATOR-C Attending physician Active Start: March 26, 2025 End: March 26, 2025 Bertha May PRODUCTION OPERATOR, PRODUCTION OPERATOR-C Referring Provider Active Start: March 26, 2025 [...] 05, 2025 Dr. Alejandro Gonzalez MD [facility] Active Start: April 05, [...] End: March 23, 2025 Bertha May NP, PRODUCTION OPERATOR-C Attending physician Active Start: March 23, 2025 [...] 2025 End: March 26, 2025 Bertha May PRODUCTION OPERATOR, PRODUCTION OPERATOR-C Attending physician Active Start: March 26, 2025 End: March 26, 2025 Bertha May PRODUCTION OPERATOR, PRODUCTION OPERATOR-C Referring Provider Active Start: March 26, 2025 [...] 05, 2025 Dr. Alejandro Gonzalez MD [facility] Active Start: April 05, [...] BE BASED ON THE PRIMARY CLINICAL RECORDS. [facility] [employer] [facility]. provides no warranty or guarantee of the accuracy or completeness of information in this document.
[2025-06-01] MEDS: 0.9% Normal Saline Single 100 ML IV.SOLN. INTRA-UTER (07:55)
[2025-06-01] MEDS: Lactated Ringers 1,000 ML 200 ML IV ×5 (08:27→23:07)
[2025-06-01 08:56] LABS: Hematocrit 33.5 % (37-47); Hemoglobin 11.1 g/dL (12.0-15.0); Immature Granulocytes Count 0.260 X10^3/uL (0.0-0.0); Mean Corp Hgb Conc 33.1 g/dL (32-36); Mean Corpuscular Volume 86.8 fL (81-99); Mean Platelet Vol. 9.3 fl (6.2-12.0); NRBC Flagged by Analyzer 0 % (0-5); Platelet Count 154 K/mm3 (150-450); RBC Distribution Width CV 12.7 % (11.6-14.6); RBC Distribution Width SD 39.6 fl (35.1-43.9); Red Blood Count 3.86 M/mm3 (4.2-5.4); White Blood Count 8.0 K/mm3 (4.4-11.0)
[2025-06-01] MEDS: Vancomycin HCl 2,000 MG in 0.9% Normal Saline (500mL Bag) 500 ML 250 MG IV ×2 (09:21→17:09)
[2025-06-01 09:28] LABS: Syphilis Antibodies Nonreactive (Nonreactive)
[2025-06-01] MEDS: Oxytocin 15 Units/NS 250ml 15 UNITS/250 ML IV.SOLN 2 UNITS IV (09:50)
[2025-06-01] MEDS: Lactated Ringers 1,000 ML 999 ML IV ×2 (10:30→19:39)
[2025-06-01] MEDS: fentaNYL-bupivacaine (epidural) 100 ML BAG EPIDURAL ×3 (11:40→20:53)
--- NOTE | 2025-06-01 14:33 | HP.PCM.OB_ITS ---
HPI - General General Date of Admission: 06/01/25 HPI Narrative SHIRA ARBOLEDA, is a 34 F who presents for IOL secondary to suspected late onset uncontrolled diabetes with LGA EFW 4200g 99 percentile and polyhydramnios 27 cm with elevated BS on home logs. no vb lof admits good fm n oregular ctx Maternal Data Information TIFFANY Calculator Estimated Delivery Date Method Current WG Current Estimate 06/14/25 LMP (Certain) 38w 2d Other Estimates 06/13/25 Ultrasound #1 38w 3d PFSH PFS Medical History (Updated 06/02/25 @ 02:[address] Dulce Hyatt MD) Elective Dizziness Shortness of breath Hemorrhoid GERD (gastroesophageal reflux disease) Anxiety and depression Genital herpes Home Medications ?Medication ?Instructions ?Recorded ?Last Taken ?Type multivit-min no.71-iron fum 28 1 cap PO DAILY 10/22/24 04/05/25 History mg-folate no.1 1 mg-dha 300 mg capsule (PNV-Alburtis) hydroxyzine HCl 25 mg tablet 25 mg PO TID PRN anxiety #120 tabs 02/18/25 Unknown Rx fluoxetine 40 mg capsule 40 mg PO DAILY #30 caps 02/06 09/01 Unknown Rx blood sugar diagnostic (Blood #120 ea 05/25/25 Unknown Rx Glucose Test strips) blood-glucose meter #1 ea 05/25/25 Unknown Rx lancets 30 gauge (Droplet Lancets) #200 ea 05/25/25 Un known Rx Allergy/AdvReac Type Severity Reaction Status Date / Time Latex, Natural Rubber Allergy Intermediate Swelling Verified 06/01/25 07:37 amoxicillin Allergy Hives Verified 06/01/25 07:37 naproxen (From Aleve) Allergy Hives Verified 06/01/25 07:37 sulfamethoxazole (From Allergy Hives Verified 06/01/25 07:37 Bactrim) trimethoprim (From Bactrim) Allergy Hives Verified 06/01/25 07:37 Family History Grandfather Diabetes Heart disease Grandmother No problems noted. 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 current occupational exposures/hazards: No pets and animals: No history of recent travel: Yes ([place], [place], [place], [place]) out of state: Yes out of country: Yes sexually active: Yes Smoking Status: Never smoker alcohol intake: current alcohol intake frequency: holidays/special occasions only details: Not while substance use type: former substance user Date of last use: 6 months ago- gummies and marijuana well-balanced diet: daily or most days caffeine: No eating out: 1-3 times/week during the past year weight has: increased > 10 lbs what type of physical activity do you participate in: none naomi/moravian: None seatbelt use: always do you feel safe at home: Yes additional social history: FOB/BF - Chintan Ripple: [employer] Manager History 5 Elective abortions 1 Hx Para 3 Spontaneous abortions Hx # Term Pregnancies 3 Ectopic pregnancies Hx # Pregnancies Multiple births # of living children 3 Past Pregnancies Del. Date Name GA/Weeks Outcome Route Bth Weight Infant Gen Labor Lgth Anesthesia Del Locatn Provider FOSergio 03/21/18 Justin 40 live - full term 9lbs 7oz Male epi dural [facility] Kilpatrick 06/12/19 Thakur-Goes by Tevin 40 live - full term 8l bs 8oz Male epidural [facility] Dr. Olena Kilpatrick 01/13/21 Isamar 40 live - full term 7lbs 6oz Female ep idural [facility] Dr. Olena Kilpatrick 07/10/24 elective Delivery Date: 03/21/18 Last Updated by: Elvira Travis Prolonged labor, [place] Delivery Date: 06/12/19 Last Updated by: Elvira Travis hypotension during labor Visit Details Expected Delivery Route/Plan with if available Labor Preferences- CB/BF classes: no labor support person: Chintan labor intervention preferences: [] pain management options preferred: epidural cut cord/dad catch: yes : yes PP control planned: discussed discussed possible routes of delivery and associated risks: [] special requests: [] Plans Covid status: [] Flu vaccine: declines Tdap vaccine: declines Rhogam: NA LARC form signed: yes Problem list reviewed and updated with the most current plan of care details and appropriate orders placed. Relevant counseling for the gestational age provided. Continue routine care and follow up unless otherwise noted in visit notes/problem list details OB Flowsheet Initial Weight: Not Recorded Date -?-?-?-?-?-?-?-?-?-?-?-?- EGA Weight BP Urine Prot -?-?-?-?-?-?-?-?-?-?-?-?- Glucose FHR FuHt Pres Dilation -?-?-?-?-?-?-?-?-?-?-?-?- Effaced St Visit Note 11/06/24 -?-?-?-?-?-?-?-?-?-?-?-?- 8w 4d 188 lb 118/80 -?-?-?-?-?-?-?-?-?-?-?--?- 170 -?-?-?-?-?-?-?-?-?-?-?-?- SM- CRL 1.96cm c ons with lMP 11/16/24 -?-?-?-?-?-?-?-?-?-?-?-?- 10w 0d 189 lb 6 oz 116/74 Nega tive -?-?-?-?-?-?-?-?-?-?-?-?- Negative 150 -?-?-?-?-?-?-?-?-?-?-?-?- SM- no vb delilah amezcua doing well 12/03/24 -?-?-?-?-?-?-?-?-?-?-?-?- 12w 3d 194 lb 119/79 Negative -?-?-?-?-?-?-?-?-?-?-?-?- Negative 160 -?-?-?-?-?-?-?-?-?-?-?-?- SM- having burni ng on urination after interoucrse only. some loss of taste and her tongue hurts, no significant whitening of tongue yet. 01/01/25 -?-?-?-?-?-?-?-?-?-?-?-?- 16w 4d 201 lb 6 oz 106/69 -?-?-?-?-?-?-?--?-?-?-?-?- 147 -?-?-?-?-?-?-?-?-?-?-?-?- JV- no lof, vagi nal bleeding, or cramping. Going to [facility] on a work trip soon. promethazine given for the flight. she knows not to continue JV- no lof, vaginal bleeding , or cramping. Going to [facility] on a work trip soon. promethazine given for the flight. she knows not to take the vistaril with it. 01/29/25 -?-?-?-?-?-?-?-?-?-?-?-?- 20w 4d 205 lb 4 oz 114/70 Nega tive -?-?-?-?-?-?-?-?-?-?-?-?- Negative 130 -?-?-?-?-?-?-?-?-?-?-?-?- KW- no vb/crampi ng. good fm recommended magnesium and iron for restless leg. follow up US in 2 weeks 02/26/25 -?-?-?-?-?-?-?-?-?-?-?-?- 24w 4d 216 lb 4 oz 117/76 Nega tive -?-?-?-?-?-?-?-?-?-?-?-?- Negative 140 24 -?-?-?-?-?-?-?-?-?-?-?-?- SM- no vb lof go od fm no reugla rctx co anxiety and depresion, heartburn 03/23/25 -?-?-?-?-?-?-?-?-?-?-?-?- 28w 1d 222 lb 114/72 Negative -?-?-?-?-?-?-?-?-?-?-?-?- Negative 152 29 -?-?-?-?-?-?-?-?-?-?-?-?- MH_No Vb, LOF. G ood FM. 28 wk labs, larc. tdap declined. Some anxiety but r/t family stressors. Seeing counselor. 04/08/25 -?-?-?-?-?-?-?-?-?-?-?-?- 30w 3d 226 lb 9 oz 121/77 Trac e -?-?-?-?-?-?-?-?-?-?-?-?- Negative 145 32 -?-?-?-?-?-?-?-?-?-?-?-?- SM- no vb lof go od fm no regualr ctx discussed right rib pain and seen in ER over the weekend for symptoms 04/23/25 -?-?-?-?-?-?-?-?-?-?-?-?- 32w 4d 235 lb 8 oz 106/72 Nega tive -?-?-?-?-?-?-?-?-?-?-?-?- Negative 140 34 -?-?-?-?-?-?-?-?-?-?-?-?- SM- no vb lof go od fm n oregular ctx 05/07/25 -?-?-?-?-?-?-?-?-?-?-?-?- 34w 4d 238 lb 9 oz 123/77 -?-?-?-?-?--?-?-?-?-?-?-?- 140 35 -?-?-?-?-?-?-?-?-?-?-?-?- SM- no vb lof go od fm no regular ctx 05/21/25 -?-?-?-?-?-?-?-?-?-?-?-?- 36w 4d 242 lb 2 oz 121/78 Nega tive -?-?-?-?-?-?-?-?-?-?-?-?- Negative 160 38 1 -?-?-?-?-?-?-?-?-?-?-?-?- 50 -3 KW- no vb/ lof. some regular ctx last night. good fm. GBS positive in urine 05/25/25 -?-?-?-?-?-?-?-?-?-?-?-?- 37w 1d 131/83 -?-?-?-?-?-?-?-?-?-?-?-?- 150 -?-?-?-?-?-?-?-?-?-?-?-?- KW- work in NST for decreased movement. reactive on NST and +fm noted by patient. repeat glucose today and US discussed. 05/26/25 -?-?-?-?-?-?-?-?-?-?-?-?- 37w 2d 242 lb 5 oz 118/78 Nega tive -?-?-?-?-?-?-?-?-?-?-?-?- Negative 140 1 -?-?-?-?-?-?-?-?-?-?-?-?- SM- no vb lof go od fm n oregualr ctx discussed IOL 39 weeks eariler if BS abnormal 05/31/25 -?-?-?-?-?-?-?-?-?-?-?-?- 38w 0d 246 lb 117/80 Negative -?-?-?-?-?-?-?-?-?-?-?-?- Negative 140 41 1 -?-?-?-?-?-?-?-?-?-?-?-?- SM- reviewed BS and some are elevated- bedside ORALIA 27cm, recommend IOL 38 weeks for suspected uncontrolled diabetes, efw 4200g NST FHR Rate Baby A Baseline: 130 Variability:: Moderate Accelerations:: 15 x 15 Decelerations:: None NST Reactive:: Yes FHR Category:: Category I Uterine Activity:: irregular ROS Constitutional Constitutional: Reports systems reviewed and no addt'l complaints, except as documented Eyes Eyes: Denies change in vision ENT HEENT: Reports systems reviewed and no addt'l complaints, except as documented; Denies headache(s) Cardiovascular Cardiovascular: Reports systems reviewed and no addt'l complaints, except as documented; Denies chest pain or dyspnea Respiratory/Chest Respiratory/Chest: Reports systems reviewed and no addt'l complaints, except as documented Gastrointestinal Gastrointestinal: Reports systems reviewed and no addt'l complaints, except as documented; Denies abdominal pain Genitourinary Genitourinary: Reports systems reviewed and no addt'l complaints, except as documented, contractions Details: present (irregular) and movement Details: present; Denies dysuria or genital lesions Musculoskeletal Musculoskeletal: Reports systems reviewed and no addt'l complaints, except as documented Neurologic Neurologic: Reports systems reviewed and no addt'l complaints, except as documented Endocrine Endocrinology: Reports systems reviewed and no addt'l complaints, except as documented Vital Signs Vital Signs Vital Signs: 06/01/25 08:14 06/01/25 08:14 06/01/25 09:09 Temperature 97.0 F L Pulse Rate Respiratory Rate 16 Blood Pressure 120/77 BP Systolic 120 BP Diastolic 77 Pulse Ox 06/01/25 09:09 06/01/25 09:12 06/01/25 09:12 Temperature Pulse Rate 100 101 H Respiratory Rate Blood Pressure BP Systolic BP Diastolic Pulse Ox 99 06/01/25 11:24 06/01/25 11:24 06/01/25 11:25 Temperature Pulse Rate 104 H Respiratory Rate 16 Blood Pressure BP Systolic BP Diastolic Pulse Ox 98 06/01/25 11:27 06/01/25 11:27 06/01/25 11:32 Temperature Pulse Rate 106 H Respiratory Rate Blood Pressure 127/75 H 154/91 H BP Systolic 127 154 BP Diastolic 75 91 Pulse Ox 06/01/25 11:32 06/01/25 11:33 06/01/25 11:33 Temperature Pulse Rate 120 H 132 H Respiratory Rate Blood Pressure BP Systolic BP Diastolic Pulse Ox 99 06/01/25 11:34 06/01/25 11:36 06/01/25 11:36 Temperature Pulse Rate 113 H Respiratory Rate 16 Blood Pressure 124/77 H BP Systolic 124 BP Diastolic 77 Pulse Ox 06/01/25 11:38 06/01/25 11:38 06/01/25 11:42 Temperature Pulse Rate 115 H Respiratory Rate Blood Pressure 105/51 L BP Systolic 105 BP Diastolic 51 Pulse Ox 98 06/01/25 11:42 06/01/25 11:44 06/01/25 11:44 Temperature Pulse Rate 110 H Respiratory Rate 16 16 Blood Pressure BP Systolic BP Diastolic Pulse Ox 06/01/25 11:45 06/01/25 11:45 06/01/25 11:46 Temperature Pulse Rate 105 H Respiratory Rate Blood Pressure 101/52 L 98/55 L BP Systolic 101 98 BP Diastolic 52 55 Pulse Ox 06/01/25 11:46 06/01/25 11:46 06/01/25 11:46 Temperature Pulse Rate 101 H 106 H Respiratory Rate Blood Pressure BP Systolic BP Diastolic Pulse Ox 99 06/01/25 11:50 06/01/25 11:51 06/01/25 11:51 Temperature Pulse Rate 101 H Respiratory Rate 16 Blood Pressure BP Systolic BP Diastolic Pulse Ox 92 06/01/25 11:51 06/01/25 11:51 06/01/25 11:52 Temperature Pulse Rate 103 H Respiratory Rate Blood Pressure 105/55 L BP Systolic 105 BP Diastolic 55 Pulse Ox 95 06/01/25 11:52 06/01/25 11:56 06/01/25 11:56 Temperature Pulse Rate 105 H 102 H Respiratory Rate Blood Pressure 96/54 L BP Systolic 96 BP Diastolic 54 Pulse Ox 06/01/25 11:56 06/01/25 12:01 06/01/25 12:01 Temperature Pulse Rate 98 Respiratory Rate Blood Pressure BP Systolic BP Diastolic Pulse Ox 98 98 06/01/25 12:02 06/01/25 12:02 06/01/25 12:06 Temperature Pulse Rate 100 Respiratory Rate Blood Pressure 96/53 L 107/58 L BP Systolic 96 107 BP Diastolic 53 58 Pulse Ox 06/01/25 12:06 06/01/25 12:06 06/01/25 12:11 Temperature Pulse Rate 99 Respiratory Rate Blood Pressure 104/56 L BP Systolic 104 BP Diastolic 56 Pulse Ox 98 06/01/25 12:11 06/01/25 12:11 06/01/25 12:11 Temperature Pulse Rate 98 95 Respiratory Rate Blood Pressure BP Systolic BP Diastolic Pulse Ox 100 06/01/25 12:16 06/01/25 12:16 06/01/25 12:22 Temperature Pulse Rate 97 Respiratory Rate Blood Pressure 90/45 L BP Systolic 90 BP Diastolic 45 Pulse Ox 100 06/01/25 12:22 06/01/25 12:57 06/01/25 12:57 Temperature Pulse Rate 106 H 119 H Respiratory Rate Blood Pressure BP Systolic BP Diastolic Pulse Ox 100 06/01/25 12:58 06/01/25 12:58 06/01/25 13:39 Temperature Pulse Rate 104 H Respiratory Rate Blood Pressure 117/61 90/51 L BP Systolic 117 90 BP Diastolic 61 51 Pulse Ox 06/01/25 13:39 06/01/25 14:16 06/01/25 14:16 Temperature Pulse Rate 86 94 Respiratory Rate Blood Pressure 109/64 BP Systolic 109 BP Diastolic 64 Pulse Ox Weight Weight: 246 lb Body Mass Index (BMI) 39.6 PRE- weight 188 lb PRE- Body Mass Index 30.2 (BMI) Physical Exam Const alert, oriented x3, no apparent distress and healthy appearing HEENT normocephalic and moist oral mucous membranes Head and Scalp: atraumatic Neck full ROM, no lymphadenopathy, supple and thyroid normal General: trachea midline Lymph Lymphatic: no lymphadenopathy noted Chest inspection of chest normal Resp normal respiratory effort Cardio regular rate GI soft to palpation and non-tender GI Narrative: gravid Inspection: gravid external exam normal Manual OB Exam: estimated gestational size appropriate, presentation cephalic, dilated, effaced and station Extremity normal to inspection General Extremity: Negative for edema Skin no rashes or lesions noted Neuro no focal motor deficits and deep tendon reflexes 2+ bilaterally Motor Exam: strength 5/5 throughout and clonus absent Psych mental status grossly normal Labs Labs Labs: Blood Type O POSITIVE Antibody Screen NEGATIVE Hct, (37-47) 33.5 % L Hgb, (12.0-15.0) 11.1 g/dL L Obstetrics Ultrasound Syphilis Total Ab, (Nonreactive) Nonreactive Rubella IgG Antibody, (Nonreactive) REAC Hep Bs Antigen, (Nonreactive) Nonreactive Hepatitis C Antibody, (Nonreactive) Nonreactive Chlamydia DNA (CARRIE), (Negative) Negative N.gonorrhoeae DNA (CARRIE), (Negative) Negative HIV 1&2 Antibody, (Nonreactive) Nonreactive Glucose 1 Hr 50 gm, (70-140) 150 mg/dL H Gest Glucose Tolerance mg/dL Group B Strep DNA, (Negative) Negative Rhogam given: No Miscellaneous Test Assessment & Plan (1) Gestational diabetes mellitus, currently : COMMENT: due to macrosomia, BS logs at home and ORALIA 27 cm suspect uncontrolled late onset diabetes recommend 38 week delivery (2) LGA (large for gestational age) fetus affecting management of mother: COMMENT: repeat 1 hour glucose, follow BS and WNL- no diabetes. (3) GBS (group B streptococcus) UTI complicating : QUALIFIERS: Trimester: third trimester Qualified Code(s): O23.43 - Unspecified infection of urinary tract in , third trimester; B95.1 - Streptococcus, group B, as the cause of diseases classified elsewhere COMMENT: PCN in labor (4) : QUALIFIERS: Weeks of gestation: 38 weeks Qualified Code(s): Z3A.38 - 38 weeks gestation of COMMENT: LR NIPT. declined carrier, normal anatomy (5) Supervision of high-risk : QUALIFIERS: Trimester: third trimester Qualified Code(s): O09.93 - Supervision of high risk , unspecified, third trimester COMMENT: PRR , TIFFANY 06/14/25, girl Teresa Tevin Boyce Ruby, Partner Chintan (6) History of marijuana use: COMMENT: Gummies last used 05/31, discussed random tox screens during (7) Hx of depression, currently : (8) FH: cleft lip and palate: COMMENT: Brother (9) Anxiety and depression: COMMENT: see counselor; leticiaofbrandon (10) Polyhydramnios: PLAN: Plan Patient presents IOL, plan management for with pit fb. Pain management: plans epidural. GBS pos vanc planned. Management of any complications: monitor BS throughout labor I have reviewed the [facility] and made any clinically relevant updates.
--- NOTE | 2025-06-01 14:33 | PCM.PN.BLA ---
Progress Note arom clear fluid 5 cm fse placed epidural in pit per protocol
[2025-06-01 14:50] LABS: Barbiturate Urine NEGATIVE (< 200 ng/mL); Benzodiazepine Urine NEGATIVE (< 200 ng/mL); PCP Urine NEGATIVE (< 25 ng/mL); THC Urine NEGATIVE (< 50 ng/mL)
[2025-06-01] MEDS: Amnioinfusion- 0.9% NS 1,000 ML IV.SOLN. 1000 ML INTRA-UTER (19:33)
--- NOTE | 2025-06-01 19:59 | PCM.PN.BLA ---
Progress Note cat II tracing tachycardia recurrent periodic variables, pitocin turned off and amnioinfusion given, low bps treated. now Cat I tracing, pitocin restarted at half and will increase per protocol.
[2025-06-02] VITALS (20 sets, daily range): BP systolic 103–130; BP diastolic 52–91; PULSE 92–136; RESP 16–18; TEMP 36–38; O2SAT 95–97
[2025-06-02] MEDS: DiphenhydrAMINE 50 MG/ML Syringe 25 MG IV (00:09)
[2025-06-02] MEDS: fentaNYL-bupivacaine (epidural) 100 ML BAG EPIDURAL (01:40)
--- NOTE | 2025-06-02 02:28 | PCM.PN.BLA ---
Progress Note Cat II tracing overall reassuring isolated periodic variable, 120 mod landy reactive toco q 2-3 swelling of the cervix reduced now 9 cm
[2025-06-02] MEDS: Oxytocin 15 Units/NS 250ml 15 UNITS/250 ML IV.SOLN 334 UNITS IV (03:21)
--- NOTE | 2025-06-02 03:41 | EX.PCM.OBVAG ---
Assessment & Plan (1) Gestational diabetes mellitus, currently : COMMENT: due to macrosomia, BS logs at home and ORALIA 27 cm suspect uncontrolled late onset diabetes recommend 38 week delivery (2) Polyhydramnios: (3) LGA (large for gestational age) fetus affecting management of mother: COMMENT: repeat 1 hour glucose, follow BS and WNL- no diabetes. Maternal Data Information TIFFANY Calculator Estimated Delivery Date Method Current WG Current Estimate 06/14/25 LMP (Certain) 38w 2d Other Estimates 06/13/25 Ultrasound #1 38w 3d Vaginal Delivery Maternal Presentation Maternal Presentation: see assessment and plan Vaginal Delivery Information Procedure Performed: Spontaneous Vaginal Delivery Surgeon/Practitioner: Dulce Hyatt Date of Procedure: 06/02/25 Pre-Procedure Diagnosis: see assessment and plan Post-Procedure Diagnosis: same Type of anesthesia: Epidural Estimated Blood Loss: 200 Findings Description of procedure: Patient began pushing and delivered the head in the REGAN presentation. The head was delivered atraumatically . The anterior and posterior shoulders delivered without complication followed by the rest of the infant and the was placed on the maternal abdomen. Delayed cord clamping was employed for approximately 60 seconds. Cord was clamped and cut and gentle traction was applied to the cord and the placenta delivered spontaneously immediately following it was noted to be intact with three-vessel cord. The perineum and vagina were inspected and was noted to have a second -degree laceration that was repaired in the usual fashion with 3-0 vicryl rapide . EBL was 200. Patient and infant tolerated delivery well. Presentation: Vertex Placental Delivery Description: Spontaneous Specimen collected: Yes Description of specimen(s) removed: placenta Truss Puller Helper line maintenance technician: No Post Vaginal Deli Medications given after delivery: Other (pitocin) Complication Complications: No Multi Select Codes Urinary/Genital Urinary/Genital CPT Codes: 55514 Vaginal Delivery [facility]
--- NOTE | 2025-06-02 03:42 | DCINST_ITS ---
Discharge Instructions DC O2, CPAP, BIPAP needs Home O2 Discharge instructions: No Dressing / Incision Discharge Activity: Return to Normal Activity, May Not Drive (while taking narcotic pain medications.) and May Shower May resume sexual activity in: 4-6 weeks Dressing / Incision Call your doctor if your incision/area has: Continuous Slow Oozing, Sudden Increased Bleeding, Increased Pain/ Swelling, Increased Redness and Foul Smelling Discharge Follow Up Care Please Follow Up With: Dulce Hyatt MD When: Call [phone] to make an appointment with your doctor in 6 weeks. If you had elevated blood pressure or 4th degree laceration, you will need to be seen in 2 weeks. Test Results: Test results from this visit will be discussed in further detail at your follow- up appointment, if applicable. Discharge Plan Admission Admit Date/Time: 06/01/25 08:04 Attending Provider: Dulce Hyatt Primary Care Provider: Braulio Bosch Discharge Orders/Prescriptions Prescriptions: No Action fluoxetine 40 mg capsule 40 mg PO DAILY Qty: 30 12RF [place] 28-1-300 mg capsule 1 cap PO DAILY hydroxyzine HCl 25 mg tablet 25 mg PO TID PRN (Reason: anxiety) Qty: 120 5RF Rx Instructions: 1-2 po q 6 hours PRN (DME) blood-glucose meter Misc See Rx Instructions .ROUTE .MEDSUPPLY Qty: 1 0RF Rx Instructions: Test blood sugars QID (DME) Blood Glucose Test Strip See Rx Instructions .ROUTE .MEDSUPPLY Qty: 120 6RF Rx Instructions: Check blood sugars Fasting and 2 hours after breakfast, lunch, and dinner. (DME) lancets [Droplet Lancets] 30 gauge misc See Rx Instructions .ROUTE .MEDSUPPLY Qty: 200 6RF Rx Instructions: Check blood sugars fasting and 2 hours after breakfast, lunch, and supper. Referrals / Follow Up: Braulio Bosch MD [Primary Care Provider, Family Practice]
[2025-06-02] MEDS: Oxytocin 15 Units/NS 250ml 15 UNITS/250 ML IV.SOLN 83 UNITS IV (03:51)
[2025-06-02] MEDS: Gentamicin IV 300 MG in Dextrose 5%-Water (50mL Bag) 50 ML 100 MG IV (04:55)
[2025-06-02] MEDS: Clindamycin 900 MG/50 ML BAG 75 MG IV (05:51)
[2025-06-02] MEDS: GLYCERIN/WITCH HAZEL (TUCKS) MED..PAD 1 EACH TOPICAL (07:32)
[2025-06-03] VITALS (7 sets, daily range): BP systolic 117–127; BP diastolic 64–75; PULSE 83–101; RESP 16; TEMP 36.1–36.6; O2SAT 97–99
--- NOTE | 2025-06-03 08:03 | PCM.DC.SUM ---
Providers Date of Admission: 06/01/25 Primary Care Physician: Dr. Braulio Bosch MD Reason For Visit: INDUCTION OF LABOR Diagnosis Discharge Diagnosis (1) Gestational diabetes mellitus, currently : Status: Acute Code(s): O24.419 - Gestational diabetes mellitus in , unspecified control (2) Polyhydramnios: Status: Acute Code(s): O40.9XX0 - Polyhydramnios, unspecified trimester, not applicable or unspecified (3) LGA (large for gestational age) fetus affecting management of mother: Status: Acute Code(s): O36.60X0 - Maternal care for excessive growth, unspecified trimester, not applicable or unspecified Medications at Discharge Home Medications multivit-min no.71-iron fum 28 mg-folate no.1 1 mg-dha 300 mg capsule (PNV-[place]) 1 cap PO DAILY 10/22/24 hydroxyzine HCl 25 mg tablet 25 mg PO TID PRN anxiety #120 tabs 02/18/25 fluoxetine 40 mg capsule 40 mg PO DAILY #30 caps 02/26/25 blood sugar diagnostic (Blood Glucose Test strips) #120 ea 05/25/25 blood-glucose meter #1 ea 05/25/25 lancets 30 gauge (Droplet Lancets) #200 ea 05/25/25 oxycodone-acetaminophen 5 mg-325 mg tablet (Percocet) 1 tab PO Q4H PRN pain 7 days #10 tabs 06/03/25 Hospital Course Procedures - (vaginal delivery) Summary of Care Provided Minutes Spent on Discharge: 15 Hospital Course: The patient was admitted on 08/01/24 for IOL. She delivered her baby early in the AM on HD#2. On day #1 she had a minor feeling of tingling in her left leg from her epidural and complaints that her baby has 2 teeth that are rubbing when she nurses. She is planned to see the anesthesia staff and correctional program specialist and then requests to go home. Physical Exam Const alert, oriented x3 and no apparent distress General Appearance: cooperative and comfortable Resp normal respiratory effort Cardio regular rate GI normal to inspection, nondistended, normoactive bowel sounds GI Narrative: uterus is firm below umbilicus Palpation: soft Back/Spine no CVA tenderness and thoraco-lumbar ROM normal Extremity normal to inspection, no clubbing, cyanosis or edema, no calf tenderness and no pedal edema Psych mental status grossly normal, thought process normal, cooperative, affect normal, speech normal, activity/motor behavior normal, denies homicidal ideation and denies suicidal ideation Weight / BMI Weight Weight: 246 lb Body Mass Index (BMI) 39.6 PRE- weight 188 lb PRE- Body Mass Index 30.2 (BMI) ABG / Lab / Microbiology Data 06/01/25 08:30 Laboratory: Laboratory Results - last 24 hr 06/03/25 06:28: POC Glucose 104 D/C Instructions Discharge Activity: May Not Drive (for 1 week ) and May Shower May resume sexual activity in: 4-6 weeks Call your doctor if your incision/area has: Continuous Slow Oozing, Sudden Increased Bleeding, Increased Pain/ Swelling, Increased Redness and Foul Smelling Discharge DC O2, CPAP, BIPAP Needs Home O2 Discharge instructions: No DC home with Oxygen: No Please Follow Up With: Dulce Hyatt MD When: Call [phone] to make an appointment with your doctor in 6 weeks. If you had elevated blood pressure or 4th degree laceration, you will need to be seen in 2 weeks. Meaningful Use Info Meaningful Use Meaningful Use Diagnoses (Choose all that apply): None applicable Discharge Plan Admission Admit Date/Time: 06/01/25 08:04 Primary Reason for Your Visit: vaginal delivery Attending Provider: Dulce Hyatt Primary Care Provider: Braulio Bosch Discharge Orders/Prescriptions Prescriptions: New oxycodone-acetaminophen [Percocet] 5-325 mg tablet 1 tab PO Q4H PRN (Reason: pain) 7 Days Qty: 10 0RF Continued fluoxetine 40 mg capsule 40 mg PO DAILY Qty: 30 12RF PNV-[place] 28-1-300 mg capsule 1 cap PO DAILY hydroxyzine HCl 25 mg tablet 25 mg PO TID PRN (Reason: anxiety) Qty: 120 5RF Rx Instructions: 1-2 po q 6 hours PRN (DME) blood-glucose meter Misc See Rx Instructions .ROUTE .MEDSUPPLY Qty: 1 0RF Rx Instructions: Test blood sugars QID (DME) Blood Glucose Test Strip See Rx Instructions .ROUTE .MEDSUPPLY Qty: 120 6RF Rx Instructions: Check blood sugars Fasting and 2 hours after breakfast, lunch, and dinner. (DME) lancets [Droplet Lancets] 30 gauge misc See Rx Instructions .ROUTE .MEDSUPPLY Qty: 200 6RF Rx Instructions: Check blood sugars fasting and 2 hours after breakfast, lunch, and supper. Referrals / Follow Up: Braulio Bosch MD [Primary Care Provider, Family Practice] Disposition Disposition (needs filled in before D/C Order can be placed): Home, Self Care
--- NOTE | 2025-06-03 08:21 | PCM.PN.BLA ---
Progress Note 0820- Called to patient room, patient c/o right leg (from knee down) pins and needles sensation. Epidural over 24 hours discontinued. Patient states prior 3 epidurals shes had have not lasted this long and she was expressing concern over prolonged recovery from epidural. Patient states yesterday entire right leg was pins and needles and now it has improved. States she feels even left leg is weaker, but is unsure if it's related to swelling . I performed a lower extremity neurological exam and patient has strong push/ pulls on ROSIE feet, able to move legs. Patient states she used stirrups for delivery and her partner was assisting with holding her right leg when pushing. Dr. Perea called and is aware of situation. Agrees this is most likely a right leg nerve injury that is a result from right leg manipulation during delivery. Patient aware it could take days to months for complete recovery and for pins and needles sensation to go away. Although Dr. Perea and I feel it is highly unlikely for patient to have or be at risk for epidural hematoma, patient also made aware of signs and symptoms of progressing epidural hematoma, that it is an emergency, and she needs to immediatly go to ER to seek care. Patient's RN also made aware of anesthesias assessment and recommendations.
[2025-06-03] MEDS: Senna/Docusate Sodium 1 Tablet PO (11:46)
--- NOTE | 2025-06-08 11:47 | CASEMGMT ---
Social Work Assessment Labor and Delivery Unit Patient Address: [address] [place] [address] Phone number: [phone] Date of Referral: 06/02/25 Time of Referral:? 1120 Referred By: Dr. Hyatt Date of Intervention: ?06/02/25? Time of Intervention:?1520 Reason for Referral:? mental health Sw completed chart review and acknowledges social work consult. Sw presented to bedside and introduced self to mother of baby, DOROTA- Nathalia, and father of baby, RYAN- Chintan Russo. Sw explained reason for sw involvement and completed psychosocial assessment. History obtained from: medical records, MOB and FOB Household composition: Currently residing in the home is DOROTA, MAGNOLIAB, DOROTA's three older children from a former relationship ( Banius, [place], and Isamar). [place] baby to be included in household when ready for discharge. Parents deny any housing concerns, stating that their home is safe and secure. Patient's parent/guardian status:? MOB states that she and RYAN have been together for 1.5 years, they knew each other in high school. No concerns reported of domestic violence or intimate partner violence. [place] baby is first baby for FOB, and fourth baby for MOB. - MOB states that she is still legally to her ex . MOB states that she and her ex were together for a long time- but they ultimately fell into a loveless marriage/ relationship. MOB states that she and FOB started a relationship before her marriage was annulled, and now that she is her divorce cannot be finalized until the baby is born. MOB states that now that the baby is here, she will have to have a paternity test done in order to establish paternity and the divorce can be finalized. ? - MOB states that she and her ex have a very civil and cordial relationship at this time. MOB states that their children are their number one priority and they are doing their best to make things remain as normal as possible for their sake. MOB states that for Thanksgiving and [place] her ex will still be over at her family get together's just as he always has been. Medical History: ?DOROTA is 35 year old female who is 5, para 3- now 4 following labor and delivery of . DOROTA received care during with [facility]. DOROTA presented to hospital for induction of labor and delivered baby via vaginal delivery on 06/02/25 at 38 weeks gestation. Baby girl, named Teresa Shelton, was born weighing 8lbs 15oz and had apgars of 8 and 9 at one and five minutes of life, respectfully. DOROTA is breast feeding and states that baby will be followed by Dr. Mcwilliams for pediatric care and follow up. Educational Status:? Both parents graduated from high school. DOROTA obtained her Associates degree and RYAN obtained his Bachelor's degree. No problems with reading, learning or comprehension. Financial Status: Both parents are gainfully employed outside the home. 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 Supplies:??All necessary baby supplies obtained, including: car seat, safe sleep space, clothes, diapers and wipes. Childcare/Caregiver(s):? DOROTA will be the primary caregiver to baby along with RYAN. When both parents have returned to work and need a childcare provider, they have an in home sitter that they use until baby is old enough to go to [facility]. Transportation:?? Both parents have their drivers license and reliable means of transportation, no barriers at this time . Programs/Agencies Involved: ??Parents are over income for linkage to community resources that provide financial assistance. ? Children Services/Legal Issues:??No history of children services involvement, no issues or concerns warranting referral to be made at this time. ? Behavioral Health Issues: ??Mental Health History:?RYAN denies mental health history. DOROTA states that she has been diagnosed with anxiety and depression. DOROTA states that she has experienced depression after the delivery of her other children. DOROTA states that she is prescribed medication (fluoxetine) and also has PRN Xanax to take for rescue medication when she needs it. DOROTA also attends [facility] for psychotherapy regularly. ?? Substance Use History:?Parents deny substance use during . MOB states that prior to she would use THC gummies from time to time. Family History:??Parents deny family history of addiction or mental health history. ??? Drug Screens: ?Maternal drug screen at time of delivery was negative for substances. Family/Social Stressors:?Although this is with new partner, MOB states that it is going to be okay. MOB recognizes that it will be different, and with it comes different elements of change. However, MOB states that in her former relationship there was a lack of emotional connection, and she felt alone and isolated during her periods, and she states that going into this period she knows that she will not feel that way. Support Systems: MOB states that FOB and all of her family and friends are her biggest supports. Depression/Shaken Baby/Safe Sleeping:? Sw educated MOB and FOB on signs and symptoms of baby blues and mood and anxiety symptoms to be mindful of going into this period. MOB again states that when she struggled with her symptoms in the past, it was due to lack of emotional support from her partner, and she knows that FOB will be there for her in all the ways that her ex was not in the past. FOB reports that if MOB were to struggle he would be able to recognize that and would know how to help and support her. MOB states that since delivering baby she has felt like herself, denies feeling down, sad, anxious or overwhelmed. Sw expressed importance of safe sleep inside and outside of the bedroom. Sw educated MOB on always placing baby in bedside bassinet and not sleeping with baby in bed with her. Sw explained that baby's bassinet should be free of any blankets, pillows or stuffed animals. And baby should be sleeping in a onesie and a sleep sack/ swaddle sack for sleep. MOB expressed understanding. Sw discouraged sleeping with baby on a couch or in a reclining chair explaining that sleep accidents also happen in those areas as well. Sw educated MOB on shaken baby prevention. MOB expressed understanding. ASSESSMENT:? MOB and baby admitted following labor and delivery. MOB with mental health history of anxiety and depression. MOB having baby with new partner after being in a former usp relationship and three prior children to whom MOB is still legally . MOB states that she and her ex are cordial with each other and get along well. MOB states that FOB is also civil with her ex and they get along with each other. MOB states that now that baby is born she will be able to finalize her divorce and move forward with that process. MOB states that she has struggled in the past with depression, and although this is a new and in many ways more healthy relationship, she still anticipates that she may struggle with her mental health. DOROTA is connected to community mental health supports, and has medications to help her manage her mental health symptoms. While meeting with parents MOB was sitting in bed comfortably and was observed to hold and care for baby easily and naturally. MOB reports to have a connection and shanks with baby. FOB states that although this is his first baby he feels comfortably holding and caring for her, stating that the more he does the more natural it feels. Parents were talkative and easily engaging in conversation. MOB talked about her past relationship and reasons as to why it was not working. DOROTA has a lot of natural supports in place. PLAN:? No other services requested or indicated. MOB and baby to be discharged when medically ready. Parents were provided literature regarding: signs and symptoms of baby blues and mood and anxiety disorders, Help Me Grow, shaken baby prevention, ABCs of safe sleep and a list of county resources that are available for them should any needs present themselves. Hank Hein, PROCESS PLANNER, [employer]ET [employer]SEM[employer]ER
== END 2025-06-03 13:55 | disposition home or self-care (01) | DRG 806 ==
PROVIDERS: Admitting Provider Obstetrics & Gynecology; PCP Family Medicine; Referring Provider Obstetrics & Gynecology; Visit Provider Obstetrics & Gynecology
DX: O24.429 Gestational diabetes mellitus in childbirth, unspecified control (principal); Z37.0 Single live birth; O23.43 Unspecified infection of urinary tract in pregnancy, third trimester; O99.324 Drug use complicating childbirth; O98.82 Other maternal infectious and parasitic diseases complicating childbirth; F32.A Depression, unspecified; F41.9 Anxiety disorder, unspecified; F12.11 Cannabis abuse, in remission; O99.344 Other mental disorders complicating childbirth; Z79.899 Other long term (current) drug therapy; Z3A.38 38 weeks gestation of pregnancy; O36.63X0 Maternal care for excessive fetal growth, third trimester, not applicable or unspecified; Z82.79 Family history of other congenital malformations, deformations and chromosomal abnormalities; O70.1 Second degree perineal laceration during delivery; O40.3XX0 Polyhydramnios, third trimester, not applicable or unspecified; O99.893 Other specified diseases and conditions complicating puerperium; R20.2 Paresthesia of skin; B95.1 Streptococcus, group B, as the cause of diseases classified elsewhere
CPT/HCPCS: 59025; 59050; 76815; 80307; 82962; 85025; 86780; 86850; 86900; 86901; 99221; G0378; J2405